=== PATIENT | male | born 1950 | race Caucasian/White ===

== ENCOUNTER → 2020-01-31 13:06 | Outpatient (BNVA) | payer MEDICARE, SELFPAY | PROVIDERS: PCP Internal Medicine; Referring Provider Internal Medicine; Visit Provider Internal Medicine | DX: I48.0 Paroxysmal atrial fibrillation (principal); I49.3 Ventricular premature depolarization; I42.9 Cardiomyopathy, unspecified; I34.0 Nonrheumatic mitral (valve) insufficiency; I63.40 Cerebral infarction due to embolism of unspecified cerebral artery | CPT/HCPCS: 99215 ==

== ENCOUNTER 2020-02-11 08:50 | Outpatient (REF) | payer MEDICARE, SELFPAY ==
[2020-02-11 11:21] LABS: Hemoglobin 15.2 g/dl (14.0-18.0); Mean Corpuscular HGB Conc 32.3 g/dl (31.0-36.0); Mean Corpuscular Hemoglobin 30.9 pg (27.0-33.0); Mean Corpuscular Volume 95.5 fL (80-98); Mean Platelet Volume 11.4 fL (9.4-12.4); Platelet Count 219 X10*3/uL (160-400); Red Blood Count 4.92 X10*6/uL (4.60-5.80); Red Cell Distribution Width 12.9 % (11.0-16.0); White Blood Count 5.8 X10*3/uL (4.8-10.8)
[2020-02-11 11:34] LABS: Alanine Aminotransferase 39 U/L (0-40); Albumin Level 4.3 g/dL (3.5-5.0); Alkaline Phosphatase 89 U/L (39-117); Anion Gap 11 (12-20); Aspartate Amino Transferase 40 U/L (5-37); Bilirubin Total 0.8 mg/dL (0.0-1.0); Blood Urea Nitrogen 38 mg/dL (9-16); Calcium 9.4 mg/dL (8.4-10.2); Carbon Dioxide 30 mmol/L (22-29); Chloride 102 mmol/L (96-108); Estimated Glomerular Filt Rate 49; Glucose Random 96 mg/dL (60-115); Potassium 4.2 mmol/l (3.3-5.1); Sodium 139 mmol/L (135-145)
== END 2020-02-11 08:51 | disposition home or self-care (01) ==
LOC: HO.HMGCLDS 08:50
PROVIDERS: PCP Internal Medicine; Visit Provider Internal Medicine
DX: E11.9 Type 2 diabetes mellitus without complications (principal)
CPT/HCPCS: 36415; 80053; 85027

== ENCOUNTER → 2020-03-13 13:00 | Outpatient (BNVA) | payer MEDICARE, SELFPAY | PROVIDERS: PCP Internal Medicine; Referring Provider Internal Medicine; Visit Provider Internal Medicine | DX: I48.0 Paroxysmal atrial fibrillation (principal); I50.9 Heart failure, unspecified; I49.3 Ventricular premature depolarization; I42.9 Cardiomyopathy, unspecified; I34.0 Nonrheumatic mitral (valve) insufficiency; Z79.01 Long term (current) use of anticoagulants; Z86.73 Personal history of transient ischemic attack (TIA), and cerebral infarction without residual deficits; Z79.899 Other long term (current) drug therapy; Z86.718 Personal history of other venous thrombosis and embolism; Z87.891 Personal history of nicotine dependence | CPT/HCPCS: Q3014 ==

== ENCOUNTER 2020-04-24 14:22 | Outpatient (REF) | payer MEDICARE, SELFPAY ==
[2020-04-24 16:23] LABS: MANUAL DIFF FLAG NO
[2020-04-24 16:28] LABS: Basophils Percent Auto 0.5 % (0-2); Eosinophils Absolute Auto 0.2 X10*3/uL (0.0-0.4); Eosinophils Percent Auto 3.8 % (0-4); Hematocrit 45.7 % (42-52); Hemoglobin 14.6 g/dl (14.0-18.0); Imm Gran Abs Auto 0.01 X10*3/uL (0.00-0.03); Imm Gran Pct Auto 0.2 % (0.0-0.4); Lymphocytes Absolute Auto 2.1 X10*3/uL (1.2-4.9); Lymphocytes Percent Auto 33.4 % (20-40); Mean Corpuscular HGB Conc 31.9 g/dl (31.0-36.0); Mean Corpuscular Hemoglobin 31.1 pg (27.0-33.0); Mean Corpuscular Volume 97.2 fL (80-98); Monocytes Absolute Auto 0.7 X10*3/uL (0.1-1.2); Monocytes Percent Auto 10.4 % (2-11); Neutrophils Absolute Auto 3.2 X10*3/uL (2.0-8.3); Neutrophils Percent Auto 51.7 % (45-73); Platelet Count 208 X10*3/uL (160-400); Red Cell Distribution Width 14.6 % (11.0-16.0); White Blood Count 6.3 X10*3/uL (4.8-10.8)
[2020-04-24 16:41] LABS: INTERNATIONAL NORM RATIO 1.2 (0.9-1.1); Prothrombin Time 14.1 SEC (10.8-13.0)
[2020-04-24 16:43] LABS: Partial Thromboplastin Time 31.5 SEC (24.1-38.0)
[2020-04-24 17:01] LABS: B Type Natriuretic Peptide 739 pg/mL (<100)
[2020-04-24 17:02] LABS: Alanine Aminotransferase 27 U/L (0-40); Albumin Level 4.2 g/dL (3.5-5.0); Alkaline Phosphatase 84 U/L (39-117); Anion Gap 10 (12-20); Aspartate Amino Transferase 25 U/L (5-37); Bilirubin Total 0.9 mg/dL (0.0-1.0); Blood Urea Nitrogen 18 mg/dL (9-16); Calcium 9.2 mg/dL (8.4-10.2); Carbon Dioxide 28 mmol/L (22-29); Chloride 106 mmol/L (96-108); Cholesterol 178 mg/dL; Estimated Glomerular Filt Rate 55; Glucose Random 93 mg/dL (60-115); HDL Cholesterol 88 mg/dL; LDL Cholesterol Calculated 83 mg/dl; Potassium 4.9 mmol/l (3.3-5.1); Sodium 139 mmol/L (135-145); Total Protein 6.8 g/dL (6.5-8.0); Triglycerides 36 mg/dL
[2020-04-24 17:03] LABS: Alanine Aminotransferase 25 U/L (0-40); Albumin Level 4.2 g/dL (3.5-5.0); Alkaline Phosphatase 82 U/L (39-117); Anion Gap 11 (12-20); Aspartate Amino Transferase 25 U/L (5-37); Bilirubin Direct 0.4 mg/dL (0.0-0.5); Bilirubin Total 0.9 mg/dL (0.0-1.0); Blood Urea Nitrogen 18 mg/dL (9-16); Calcium 9.3 mg/dL (8.4-10.2); Carbon Dioxide 26 mmol/L (22-29); Chloride 107 mmol/L (96-108); Cholesterol 179 mg/dL; Estimated Glomerular Filt Rate 55; Glucose Fasting 93 mg/dL (60-99); HDL Cholesterol 87 mg/dL; Iron 86 mcg/dL (45-160); LDL Cholesterol Calculated 85 mg/dl; Magnesium 2.1 mg/dL (1.6-2.6); Percent Iron Saturation 24 % (15-50); Potassium 4.9 mmol/l (3.3-5.1); Sodium 139 mmol/L (135-145); Total Iron Binding Capacity 356 mcg/dL (228-428); Total Protein 6.8 g/dL (6.5-8.0); Triglycerides 37 mg/dL; Unsaturated Iron Binding 270 ug/dL
[2020-04-24 17:22] LABS: Erythrocyte Sedimentation Rate 2 MM/HR (0-15)
[2020-04-24 17:25] LABS: T4 Thyroxine 5.6 ug/dL (4.5-12.0)
[2020-04-24 17:26] LABS: Ferritin 140 ng/mL (20-250); Free T4 (Free Thyroxine) 0.95 ng/dL (0.71-1.85); Thyroid Stimulating Hormone 2.19 uIU/mL (0.32-4.0)
[2020-04-24 17:32] LABS: Folate > 20.0 ng/mL (> or = 4.0); Vitamin B12 291 pg/mL (200-900)
[2020-04-25 06:18] LABS: T3 Uptake 34 % (22-35)
[2020-04-25 07:26] LABS: Triiodothyronine T3 Total 74 ng/dL (76-181)
== END 2020-04-24 14:23 | disposition home or self-care (01) ==
LOC: HO.HMGCLDS 14:22
PROVIDERS: PCP Internal Medicine; Visit Provider Internal Medicine Cardiovascular Disease
DX: Z01.818 Encounter for other preprocedural examination (principal); E78.00 Pure hypercholesterolemia, unspecified; I48.91 Unspecified atrial fibrillation; E78.5 Hyperlipidemia, unspecified; R51.9 Headache, unspecified; I49.3 Ventricular premature depolarization; I11.0 Hypertensive heart disease with heart failure; I50.9 Heart failure, unspecified
CPT/HCPCS: 36415; 80051; 80053; 80061; 80076; 82248; 82310; 82550; 82565; 82607; 82728; 82746; 82947; 83540; 83735; 83880; 84436; 84439; 84443; 84479; 84480; 84520; 85025; 85610; 85652; 85730

== ENCOUNTER → 2020-05-14 07:33 | Outpatient (REF) | payer MEDICARE, SELFPAY ==
--- NOTE | 2020-05-14 07:38 | CA_ITS ---
Transthoracic Echocardiogram Patient (Last, First, Middle): Eliazar Quispe F Gender: Male Date of : 1950 Age: 70 Procedure Date: 05/14/2020 Procedure Type: Transthoracic Echocardiogram Location: OP Height: 187.96 cm Weight: 79.38 kg BSA: 2.05 m2 Heart Rate: bpm BP: 122 / 60 mmHg Media Intern: Referring MD: derrell briggs md Symptoms: AFIB Study Quality: Good ECG Rhythm: Sinus Conclusions: - The left ventricular systolic function is moderately decreased. The visually estimated ejection fraction is between 30-35%. - The left atrium is severely dilated. - There is mild to moderate mitral valve regurgitation. - There is mild tricuspid valve regurgitation. Findings Left Ventricle Normal left ventricular cavity size. There is mildly increased left ventricular wall thickness. The left ventricular systolic function is moderately decreased. The visually estimated ejection fraction is between 30 35%. There is moderate global hypokinesis. E/E prime ratio is between 8 and 15 consistent with indeterminate filling pressures. Evidence suggests grade I (mild) diastolic dysfunction. Right Ventricle Normal right ventricular cavity size and systolic function. Atria The left atrium is severely dilated. The right atrium is mildly dilated. Aortic Valve There is a normal trileaflet aortic valve. There is no aortic valve stenosis. There is no aortic valve regurgitation. Mitral Valve The mitral valve appears normal. There is mild to moderate mitral valve regurgitation. There is no mitral valve stenosis. Pulmonic Valve The pulmonic valve was not well visualized. Tricuspid Valve Normal tricuspid valve structure. There is mild tricuspid valve regurgitation. The pulmonary artery systolic pressure is normal. Great Vessels The aortic annulus, sinuses of valsalva, and asc aorta are normal in size. Venous The inferior vena cava is normal in size and collapses greater than 50% with inspiration. Pericardium/Pleural There is no evidence of pericardial effusion. Prior Study Comparison No significant change compared to prior study dated: 01/16/2020. Measurements 2D Linear Measurements IVSd: 1.26 0.6-0.9/0.6-1.0 cm LVIDd: 5.24 3.9-5.3/4.2-5.9 cm LVIDd Index: 2.56 2.4-3.2/2.2-3.1 cm/m2 LVIDs: 4.18 2.0-3.6 cm LVPWd: 1.26 0.7-1.1 cm Ao Root: 3.80 2.1-3.5 cm LA Diam: 5.10 2.7-3.8/3.0-4.0 cm LAIDs Index: 2.49 1.5-2.3 cm/m2 LV Mass: 336.35 67-162/88-224 g LV Mass Index: 164.07 43-95/49-115 g/m2 LVOT Diam: 2.40 3.0+(-)1.3 cm 2D Systolic Function EF 4C: 35.90 >55% EF 2C: 36.70 >55% EF BiP: 34.50 >55% Mitral Valve MV Pk E: 0.59 MV PK A: 0.36 MV Decel Time: 172.00 E/A: 1.60 E'Lateral: 5.22 E'Medial: 5.42 E/E' Med: 10.90 E/E' Lat: 11.30 PHT: 50.00 MVA PHT: 4.40 Decel [place]: 3.45 MR Vol - PW Dopp: 35.65 MR VTI: 1.55 MR ERO: 23.00 MR Alias Nura: 0.38 MR RAD: 0.70 Aortic Valve AoV Pk Nura: 1.06 AoV Mn Nura: 0.71 AoV VTI: 0.20 AoV Pk Grad: 4.00 Aov Mn Grad: 2.00 DELIA Cont.VTI: 2.80 LVOT LVOT Pk Nura: 0.68 LVOT Mn Nura: 0.51 LVOT VTI: 0.12 LVOT Pk Grad: 2.00 LVOT Mn Grad: 1.00 LVOT Diam: 2.40 LVOT Area: 4.52 Diastolic Function MV Pk E: 0.59 MV Pk A: 0.36 E/A: 1.60 E'Medial: 5.42 E/E' Med: 10.90 E' Laterial: 5.22 E/E' Lat: 11.30 Tricuspid Valve TR Pk Nura: 2.40 TR Pk Grad: 23.00 RA Press: 3.00 RVSP: 26.00 Great Vessels Aorta Ao Root-2D: 3.80 2.0-3.7 cm Ao Asc: 3.60 2.1-3.4 cm Pulmonary Valve PV Pk Nura: 0.71 Peak PV Grad: 2.00 Updated in Other Vendor System with Status of Final Jaylen Amin MD electronically signed on 05/16/2020 2:40:50 PM with status of Final
== END ==
LOC: HO.CARD 07:33
PROVIDERS: Visit Provider Internal Medicine Cardiovascular Disease
DX: I48.0 Paroxysmal atrial fibrillation (principal)
CPT/HCPCS: 93306

== ENCOUNTER → 2020-06-05 10:58 | Outpatient (REF) | payer MEDICARE, SELFPAY ==
--- NOTE | 2020-06-05 11:03 | ECG_ITS ---
Hook-up date: 2020-06-05 11:10:00 Duration: 27:31:00 Test Indications: PALPITATIONS Medications: 359709 QRS complexes 3046 Ventricular ectopics which represent 2 % of total QRS comp. 6200 Supraventricular ectopics which represent 5 % of total QRS comp. * Paced QRS complexs which represent % of total QRS comp. VENTRICULAR ECTOPY 2954 Isolated 385 Bigeminal Cycles 40 Couplets 4 Runs 12 Beats in Runs 3 Beats LONGEST at 144 BPM at 16:25:50 2020-06-05 3 Beats FASTEST at 144 BPM at 16:25:50 2020-06-05 SUPRAVENTRICULAR ECTOPY 2500 Isolated 1621 Couplets 138 Runs 465 Beats in Runs 12 Beats LONGEST at 107 BPM at 03:16:55 2020-06-06 5 Beats FASTEST at 174 BPM at 22:08:07 2020-06-05 HEART RATES 61 MIN at 04:17:13 2020-06-06 85 AVG 151 MAX at 11:59:46 2020-06-05 LONGEST RR 1.2000 secs at 05:33:48 2020-06-06 S-T LEVELS Channel 1 - 128 mm at 11:10:00 2020-06-05 - 128 mm at 11:10:00 2020-06-05 Channel 2 - 128 mm at 11:10:00 2020-06-05 - 128 mm at 11:10:00 2020-06-05 Channel 3 - 128 mm at 03:02:91 -- - 128 mm at 03:02:91 Basic rhythm Normal sinus rhythm No long pause or profound bradycardia Baseline BBB Frequent Premature atrial complexes Multiple short bursts of SVEs No sustained Left anterior fascicular block Frequent Premature ventricular complexes Patient did not report any symptoms in the diary Referred By: Devorah Pan Overread By: BRIANNA SHIELDS MD
== END ==
LOC: HO.CARD 10:58
PROVIDERS: PCP Internal Medicine; Visit Provider Nurse Practitioner Adult Health
DX: I49.1 Atrial premature depolarization (principal); I49.3 Ventricular premature depolarization
CPT/HCPCS: 93225; 93226

== ENCOUNTER → 2020-06-11 14:00 | Outpatient (BNVA) | payer MEDICARE, SELFPAY | PROVIDERS: PCP Internal Medicine; Visit Provider Internal Medicine | DX: Z01.810 Encounter for preprocedural cardiovascular examination (principal); I48.0 Paroxysmal atrial fibrillation; I49.3 Ventricular premature depolarization; I42.9 Cardiomyopathy, unspecified; I34.0 Nonrheumatic mitral (valve) insufficiency; I63.40 Cerebral infarction due to embolism of unspecified cerebral artery | CPT/HCPCS: 93005; 99212 ==

== ENCOUNTER → 2020-08-26 08:28 | Outpatient (REF) | payer MEDICARE, SELFPAY ==
--- NOTE | ~2020-08-26 | NM_ITS ---
Exercise Myocardial perfusion study Indication: Shortness of breath evaluate for myocardial ischemia Technique: The patient was brought in for an exercise perfusion study on 08/26/2020. Patient performed exercise as per Ered protocol and was injected 25 mCi of sestamibi was given intravenously one target HR was achieved. Images were obtained using the SPECT gamma camera interlaced with the gating device. Images were obtained in supine position. Resting perfusion study was performed on 08/27/2020. Patient was administered 25 mCi of sestamibi intravenously at rest. Images were then obtained in supine position. Images obtained with and without CT attenuation. Total DLP 121 mGy-cm. Images were processed with the software and compared side to side in short axis, horizontal long axis and vertical long axis views. Findings: The stress perfusion study showed nondistended images show normal uptake of radiotracer in all segments of LV myocardium. Attenuation corrected images show mildly reduced uptake in the distal anterior and apex of the LV myocardium.. The gated study shows normal LV systolic function with calculated LVEF of 52%. LV cavity is normal in size. The gated study shows normal systolic wall thickening and contraction of all segments. There is no transient ischemic dilation. Resting study shows no change in perfusion pattern compared to stress perfusion study. Gating at rest reveals normal systolic wall motion with ejection fraction at 55%. The findings are consistent with no reversible defect suggestive of ischemia. NM/NM ingrid perf SPECT rest & str Impression: 1. Normal myocardial perfusion 2. Gated LVEF is 55% 3. Transient ischemic dilatation not present Stress EKG is equivocal for ischemia
--- NOTE | 2020-08-26 08:33 | CA_ITS ---
Transthoracic Echocardiogram Patient (Last, First, Middle): Eliazar Quispe F Gender: Male Date of : 1950 Age: 70 Procedure Date: 08/26/2020 Procedure Type: Transthoracic Echocardiogram Location: OP Height: 187.96 cm Weight: 81.65 kg BSA: 2.08 m2 Heart Rate: bpm BP: 118 / 60 mmHg Thrill Performer: Referring MD: Jaylen Amin MD Symptoms: I42.9 - Cardiomyopathy, unspecified Study Quality: Good ECG Rhythm: Sinus Conclusions: - The left ventricular systolic function is normal. The visually estimated ejection fraction is between 55-60%. - The left atrium is severely dilated. - There is moderate to severe mitral valve regurgitation. - There is mild to moderate tricuspid valve regurgitation. - Moderate pulmonary hypertension is present. Findings Left Ventricle Normal left ventricular cavity size. There is mildly increased left ventricular wall thickness. The left ventricular systolic function is normal. The visually estimated ejection fraction is between 55-60%. The calculated ejection fraction is 54% by biplane method. E/E prime ratio is between 8 and 15 consistent with indeterminate filling pressures. Possible grade 2 diastolic dysfunction. Right Ventricle Normal right ventricular cavity size and systolic function. Atria The left atrium is severely dilated. The right atrium is mildly dilated. Atrial septal defect noted possibly related to ablation. [id number] shunting. Aortic Valve There is a normal trileaflet aortic valve. There is no aortic valve stenosis. There is trace (trivial) aortic valve regurgitation. Mitral Valve The posterior mitral leaflet has restricted mobility. There is mild mitral annular calcification. There is moderate to severe mitral valve regurgitation. There is no mitral valve stenosis. Effective orifice area by PISA calculation 0.24sqcm. Pulmonic Valve The pulmonic valve was not well visualized. Tricuspid Valve Normal tricuspid valve structure. There is mild to moderate tricuspid valve regurgitation. The right ventricular systolic pressure is 50 mmHg. Moderate pulmonary hypertension is present. Great Vessels The aortic annulus, sinuses of valsalva, and asc aorta are normal in size. Venous The inferior vena cava is mildly dilated and collapses greater than 50% with inspiration. Pericardium/Pleural There is no evidence of pericardial effusion. Prior Study Comparison Changes noted compared to prior study dated: 05/14/2020. LVEF improved. Measurements 2D Linear Measurements IVSd: 1.22 0.6-0.9/0.6-1.0 cm LVIDd: 5.06 3.9-5.3/4.2-5.9 cm LVIDd Index: 2.43 2.4-3.2/2.2-3.1 cm/m2 LVIDs: 3.20 2.0-3.6 cm LVPWd: 1.24 0.7-1.1 cm Ao Root: 3.80 2.1-3.5 cm LA Diam: 5.30 2.7-3.8/3.0-4.0 cm LAIDs Index: 2.55 1.5-2.3 cm/m2 LV Mass: 307.53 67-162/88-224 g LV Mass Index: 147.85 43-95/49-115 g/m2 LVOT Diam: 2.30 3.0+(-)1.3 cm 2D Systolic Function EF 4C: 52.30 >55% EF 2C: 55.80 >55% EF BiP: 53.90 >55% Mitral Valve MV Pk E: 0.92 MV PK A: 0.37 MV Decel Time: 254.00 E/A: 2.50 E'Lateral: 12.00 E'Medial: 7.06 E/E' Med: 13.10 E/E' Lat: 7.70 PHT: 74.00 MVA PHT: 2.97 Decel [place]: 3.64 MR Vol - PW Dopp: 51.60 MR VTI: 2.15 MR ERO: 24.00 MR Alias Nura: 0.36 MR RAD: 0.80 Aortic Valve AoV Pk Nura: 1.26 AoV Mn Nura: 0.79 AoV VTI: 0.28 AoV Pk Grad: 6.00 Aov Mn Grad: 3.00 DELIA Cont.VTI: 2.77 LVOT LVOT Pk Nura: 0.89 LVOT Mn Nura: 0.53 LVOT VTI: 0.19 LVOT Pk Grad: 3.00 LVOT Mn Grad: 1.00 LVOT Diam: 2.30 LVOT Area: 4.15 Diastolic Function MV Pk E: 0.92 MV Pk A: 0.37 E/A: 2.50 E'Medial: 7.06 E/E' Med: 13.10 E' Laterial: 12.00 E/E' Lat: 7.70 Tricuspid Valve TR Pk Nura: 3.24 TR Pk Grad: 42.00 RA Press: 8.00 RVSP: 50.00 Great Vessels Aorta Ao Root-2D: 3.80 2.0-3.7 cm Ao Asc: 4.30 2.1-3.4 cm Pulmonary Valve PV Pk Nura: 0.68 Peak PV Grad: 2.00 Updated in Other Vendor System with Status of Final Jaylen Amin MD electronically signed on 08/27/2020 2:30:56 PM with status of Final
--- NOTE | 2020-08-26 08:33 | ECG_ITS ---
Hook-up date: 2020-08-26 10:33:00 Duration: 26:08:00 Test Indications: PAF, PVC'S Medications: 55242 QRS complexes 2415 Ventricular ectopics which represent 2 % of total QRS comp. 206 Supraventricular ectopics which represent <1 % of total QRS comp. * Paced QRS complexs which represent % of total QRS comp. VENTRICULAR ECTOPY 2303 Isolated 456 Bigeminal Cycles 51 Couplets 2 Runs 10 Beats in Runs 7 Beats LONGEST at 107 BPM at 11:27:38 2020-08-26 7 Beats FASTEST at 107 BPM at 11:27:38 2020-08-26 SUPRAVENTRICULAR ECTOPY 168 Isolated 3 Couplets 6 Runs 32 Beats in Runs 11 Beats LONGEST at 115 BPM at 10:17:14 2020-08-27 6 Beats FASTEST at 158 BPM at 21:37:53 2020-08-26 HEART RATES 51 MIN at 04:50:27 2020-08-27 67 AVG 113 MAX at 16:15:51 2020-08-26 LONGEST RR 1.7040 secs at 15:25:51 2020-08-26 S-T LEVELS Channel 1 - 128 mm at 10:33:00 2020-08-26 - 128 mm at 10:33:00 2020-08-26 Channel 2 - 128 mm at 10:33:00 2020-08-26 - 128 mm at 10:33:00 2020-08-26 Channel 3 - 128 mm at 02:95:21 -- - 128 mm at 02:95:21 Basic rhythm Normal sinus rhythm No long pause or profound bradycardia Frequent Premature ventricular complexes One 7 beat run of NSVT at 107 bpm Occasional Premature atrial complexes Patient did not report any symptoms in the diary Referred By: Jaylen Amin Overread By: BRIANNA SHIELDS MD
--- NOTE | 2020-08-26 09:30 | CA_ITS ---
Acquisition Time: 2020-08-26 09:35:14 Total Exercise Time: 00:05:50 Test Indications: afib Medications: see chart Protocol: EDINSON Max HR: 120 BPM 81% of Pred: 148 BPM Max BP: 164/072 mmHG Max Work Load: 7.0 METS Exercise stress nuclear using Edinson protocol, total of 5 min 50 sec. METS 7.00, and TAPHR up to 81 %. Pt denies any anginal sx, EKG with multiple PVC's bigeminy in peak exercise. HR attenuated by betablocker. No ischemic changes seen, Nuclear images to follow. Normotensive response to exrcise. Test reviewed with Dr. Amin. Referred By: Jaylen Amin Overread By: Steph Salinas NP
[2020-08-26 11:53] LABS: MANUAL DIFF FLAG NO
[2020-08-26 12:03] LABS: Basophils Percent Auto 0.4 % (0-2); Eosinophils Absolute Auto 0.2 X10*3/uL (0.0-0.4); Eosinophils Percent Auto 3.3 % (0-4); Hematocrit 40.4 % (42-52); Hemoglobin 13.4 g/dl (14.0-18.0); Imm Gran Abs Auto 0.01 X10*3/uL (0.00-0.03); Imm Gran Pct Auto 0.2 % (0.0-0.4); Lymphocytes Absolute Auto 1.5 X10*3/uL (1.2-4.9); Lymphocytes Percent Auto 26.6 % (20-40); Mean Corpuscular HGB Conc 33.2 g/dl (31.0-36.0); Mean Corpuscular Hemoglobin 31.7 pg (27.0-33.0); Mean Corpuscular Volume 95.5 fL (80-98); Mean Platelet Volume 9.5 fL (9.4-12.4); Monocytes Absolute Auto 0.5 X10*3/uL (0.1-1.2); Monocytes Percent Auto 9.1 % (2-11); Neutrophils Absolute Auto 3.3 X10*3/uL (2.0-8.3); Neutrophils Percent Auto 60.4 % (45-73); Platelet Count 214 X10*3/uL (160-400); Red Blood Count 4.23 X10*6/uL (4.60-5.80); Red Cell Distribution Width 12.3 % (11.0-16.0); White Blood Count 5.5 X10*3/uL (4.8-10.8)
[2020-08-26 12:21] LABS: B Type Natriuretic Peptide 195 pg/mL (<100)
[2020-08-26 12:37] LABS: Alanine Aminotransferase 25 U/L (0-40); Albumin Level 3.8 g/dL (3.5-5.0); Alkaline Phosphatase 87 U/L (39-117); Anion Gap 10 (12-20); Aspartate Amino Transferase 24 U/L (5-37); Bilirubin Total 0.9 mg/dL (0.0-1.0); Blood Urea Nitrogen 21 mg/dL (9-16); Calcium 9.2 mg/dL (8.4-10.2); Carbon Dioxide 27 mmol/L (22-29); Chloride 108 mmol/L (96-108); Estimated Glomerular Filt Rate > 60; Glucose Random 100 mg/dL (60-115); Phosphorus 3.2 mg/dL (2.7-4.5); Potassium 4.7 mmol/L (3.3-5.1); Sodium 140 mmol/L (135-145); Total Protein 6.1 g/dL (6.5-8.0)
== END ==
LOC: HO.CARD 08:28
PROVIDERS: Internal Medicine; Visit Provider Internal Medicine
DX: I50.9 Heart failure, unspecified (principal); I48.0 Paroxysmal atrial fibrillation; I49.3 Ventricular premature depolarization; I42.9 Cardiomyopathy, unspecified; R06.02 Shortness of breath
CPT/HCPCS: 36415; 78452; 80053; 83735; 83880; 84100; 85025; 93016; 93017; 93018; 93225; 93226; 93306; A9500

== ENCOUNTER 2020-09-12 09:39 | Outpatient (REF) | payer MEDICARE, SELFPAY ==
[2020-09-12 11:22] LABS: MANUAL DIFF FLAG NO
[2020-09-12 11:39] LABS: Basophils Percent Auto 0.5 % (0-2); Eosinophils Absolute Auto 0.2 X10*3/uL (0.0-0.4); Eosinophils Percent Auto 5.7 % (0-4); Hematocrit 38.1 % (42-52); Hemoglobin 12.6 g/dl (14.0-18.0); Immature Retic Fraction 5.9 % (2.3-13.4); Lymphocytes Absolute Auto 1.5 X10*3/uL (1.2-4.9); Lymphocytes Percent Auto 34.7 % (20-40); Mean Corpuscular HGB Conc 33.1 g/dl (31.0-36.0); Mean Corpuscular Hemoglobin 31.7 pg (27.0-33.0); Mean Corpuscular Volume 95.7 fL (80-98); Mean Platelet Volume 9.7 fL (9.4-12.4); Monocytes Absolute Auto 0.5 X10*3/uL (0.1-1.2); Monocytes Percent Auto 11.6 % (2-11); Neutrophils Percent Auto 47.5 % (45-73); Platelet Count 217 X10*3/uL (160-400); Red Blood Count 3.98 X10*6/uL (4.60-5.80); Red Cell Distribution Width 12.4 % (11.0-16.0); Retic HGB Equivalent 35.6 pg (30.0-35.0); Reticulocyte Percent 1.4 % (0.5-1.8); Reticulocytes Absolute 0.056 X10*6/uL (0.026-0.095); White Blood Count 4.2 X10*3/uL (4.8-10.8)
[2020-09-12 12:04] LABS: B Type Natriuretic Peptide 121 pg/mL (<100)
[2020-09-12 12:08] LABS: Alanine Aminotransferase 23 U/L (0-40); Albumin Level 3.8 g/dL (3.5-5.0); Alkaline Phosphatase 93 U/L (39-117); Anion Gap 10 (12-20); Aspartate Amino Transferase 21 U/L (5-37); Bilirubin Total 0.6 mg/dL (0.0-1.0); Blood Urea Nitrogen 26 mg/dL (9-16); Calcium 9.3 mg/dL (8.4-10.2); Carbon Dioxide 28 mmol/L (22-29); Chloride 106 mmol/L (96-108); Cholesterol 189 mg/dL; Estimated Glomerular Filt Rate > 60; Glucose Random 107 mg/dL (60-115); HDL Cholesterol 74 mg/dL; Iron 42 mcg/dL (45-160); LDL Cholesterol Calculated 104 mg/dl; Percent Iron Saturation 15 % (15-50); Potassium 4.1 mmol/L (3.3-5.1); Sodium 140 mmol/L (135-145); Total Iron Binding Capacity 289 mcg/dL (228-428); Total Protein 6.2 g/dL (6.5-8.0); Triglycerides 55 mg/dL; Unsaturated Iron Binding 247 ug/dL
[2020-09-12 12:33] LABS: Ferritin 175 ng/mL (20-250); Free T4 (Free Thyroxine) 0.85 ng/dL (0.71-1.85); Thyroid Stimulating Hormone 1.33 uIU/mL (0.32-4.0)
[2020-09-12 12:38] LABS: Folate 17.8 ng/mL (> or = 4.0); Vitamin B12 388 pg/mL (200-900)
== END 2020-09-12 09:40 | disposition home or self-care (01) ==
LOC: HO.HMGCLDS 09:39
PROVIDERS: PCP Internal Medicine; Visit Provider Internal Medicine
DX: E78.00 Pure hypercholesterolemia, unspecified (principal); D64.9 Anemia, unspecified
CPT/HCPCS: 36415; 80053; 80061; 82607; 82728; 82746; 83540; 83880; 84439; 84443; 85025; 85045

== ENCOUNTER → 2020-09-15 14:22 | Outpatient (BNVA) | payer MEDICARE, SELFPAY | PROVIDERS: PCP Internal Medicine; Referring Provider Internal Medicine; Visit Provider Internal Medicine | DX: Z01.810 Encounter for preprocedural cardiovascular examination (principal); I48.0 Paroxysmal atrial fibrillation; I49.3 Ventricular premature depolarization; I42.9 Cardiomyopathy, unspecified; I34.0 Nonrheumatic mitral (valve) insufficiency; I63.40 Cerebral infarction due to embolism of unspecified cerebral artery | CPT/HCPCS: 99212 ==

== ENCOUNTER → 2020-11-06 13:55 | Outpatient (REF) | payer MEDICARE, SELFPAY | LOC: HO.SL 13:55 | PROVIDERS: PCP Internal Medicine; Visit Provider Internal Medicine | DX: G47.33 Obstructive sleep apnea (adult) (pediatric) (principal) | CPT/HCPCS: 95806 ==

== ENCOUNTER → 2021-01-02 13:55 | Outpatient (BNVA) | payer MEDICARE, SELFPAY | PROVIDERS: PCP Internal Medicine; Referring Provider Internal Medicine; Visit Provider Internal Medicine | DX: R94.31 Abnormal electrocardiogram [ECG] [EKG] (principal) | CPT/HCPCS: 93005 ==

== ENCOUNTER → 2021-01-05 09:31 | Outpatient (REF) | payer MEDICARE, SELFPAY ==
--- NOTE | 2021-01-05 09:42 | CA_ITS ---
Transthoracic Echocardiogram Patient (Last, First, Middle): Eliazar Quispe F Gender: Male Date of : 1950 Age: 70 Procedure Date: 01/05/2021 Procedure Type: Transthoracic Echocardiogram Location: OP Height: 187.96 cm Weight: 81.65 kg BSA: 2.08 m2 Heart Rate: bpm BP: 148 / 90 mmHg Protohistorian: SPEEDY Referring MD: Jaylen Amin MD Symptoms: I34.0 - Nonrheumatic mitral (valve) insufficiency Study Quality: Good ECG Rhythm: Undetermined Conclusions: - The left ventricular systolic function is mildly decreased. The visually estimated ejection fraction is between 45-50%. - The left atrium is severely dilated. - There is moderate mitral valve regurgitation. - There is mild tricuspid valve regurgitation. - Mild pulmonary hypertension is present. Findings Left Ventricle Normal left ventricular cavity size. There is mildly increased left ventricular wall thickness. The left ventricular systolic function is mildly decreased. The visually estimated ejection fraction is between 45-50%. There is mild global hypokinesis. Diastolic function is indeterminate on the basis of available data. Right Ventricle Normal right ventricular cavity size and systolic function. Atria The left atrium is severely dilated. The right atrium is normal in size. Aortic Valve There is a normal trileaflet aortic valve. There is mild calcification of the aortic valve. There is no aortic valve stenosis. There is no aortic valve regurgitation. Mitral Valve There is mild anterior and posterior mitral leaflet thickening. There is mild mitral annular calcification. There is moderate mitral valve regurgitation. There is no mitral valve stenosis. ERO by PISA 0.19sqcm. Pulmonic Valve The pulmonic valve was not well visualized. Tricuspid Valve Normal tricuspid valve structure. There is mild tricuspid valve regurgitation. The right ventricular systolic pressure is 38 mmHg. Mild pulmonary hypertension is present. Great Vessels The aortic annulus, sinuses of valsalva, asc aorta, and aortic arch are normal in size. Venous The inferior vena cava is normal in size and collapses greater than 50% with inspiration. Pericardium/Pleural There is no evidence of pericardial effusion. Prior Study Comparison Changes noted compared to prior study dated: 08/26/2020. LVEF lower than prior study. Measurements 2D Linear Measurements IVSd: 1.29 0.6-0.9/0.6-1.0 cm LVIDd: 4.91 3.9-5.3/4.2-5.9 cm LVIDd Index: 2.36 2.4-3.2/2.2-3.1 cm/m2 LVIDs: 3.54 2.0-3.6 cm LVPWd: 1.08 0.7-1.1 cm Ao Root: 4.00 2.1-3.5 cm LA Diam: 4.60 2.7-3.8/3.0-4.0 cm LAIDs Index: 2.21 1.5-2.3 cm/m2 LV Mass: 278.16 67-162/88-224 g LV Mass Index: 133.73 43-95/49-115 g/m2 LVOT Diam: 2.30 3.0+(-)1.3 cm 2D Systolic Function EF 4C: 48.80 >55% EF 2C: 44.40 >55% EF BiP: 45.20 >55% Mitral Valve E'Lateral: 5.33 E'Medial: 7.83 MR Vol - PW Dopp: 30.78 MR VTI: 1.62 MR ERO: 19.00 MR Alias Nura: 0.36 MR RAD: 0.70 Aortic Valve AoV Pk Nura: 1.39 AoV Mn Nura: 0.93 AoV VTI: 0.22 AoV Pk Grad: 8.00 Aov Mn Grad: 4.00 DELIA Cont.VTI: 2.31 LVOT LVOT Pk Nura: 0.73 LVOT Mn Nura: 0.48 LVOT VTI: 0.12 LVOT Pk Grad: 2.00 LVOT Mn Grad: 1.00 LVOT Diam: 2.30 LVOT Area: 4.15 Diastolic Function E'Medial: 7.83 E' Laterial: 5.33 Right Ventricle TAPSE (mm): 1.98 TVS' Nura: 10.20 Tricuspid Valve TR Pk Nura: 2.95 TR Pk Grad: 35.00 RA Press: 3.00 RVSP: 38.00 Great Vessels Aorta Ao Root-2D: 4.00 2.0-3.7 cm Ao Asc: 3.30 2.1-3.4 cm Ao Arch: 3.20 Updated in Other Vendor System with Status of Final Jaylen Amin MD electronically signed on 01/06/2021 3:17:35 PM with status of Final
--- NOTE | 2021-01-05 09:42 | ECG_ITS ---
Hook-up date: 2021-01-05 10:23:00 Duration: 27:10:00 Test Indications: VENTRICULAR PREMAT. DEPOLAR. Medications: 725804 QRS complexes 557 Ventricular ectopics which represent <1 % of total QRS comp. 331 Supraventricular ectopics which represent <1 % of total QRS comp. * Paced QRS complexs which represent % of total QRS comp. VENTRICULAR ECTOPY 539 Isolated 0 Bigeminal Cycles 6 Couplets 2 Runs 6 Beats in Runs 3 Beats LONGEST at 180 BPM at 17:06:24 2021-01-05 3 Beats FASTEST at 180 BPM at 17:06:24 2021-01-05 SUPRAVENTRICULAR ECTOPY 256 Isolated 36 Couplets 1 Runs 3 Beats in Runs 3 Beats LONGEST at 187 BPM at 08:54:46 2021-01-06 3 Beats FASTEST at 187 BPM at 08:54:46 2021-01-06 HEART RATES 86 MIN at 03:47:37 2021-01-06 105 AVG 135 MAX at 06:48:42 2021-01-06 LONGEST RR 0.7680 secs at 03:48:25 2021-01-06 S-T LEVELS Channel 1 - 128 mm at 10:23:00 2021-01-05 - 128 mm at 10:23:00 2021-01-05 Channel 2 - 128 mm at 10:23:00 2021-01-05 - 128 mm at 10:23:00 2021-01-05 Channel 3 - 128 mm at 02:94:21 -- - 128 mm at 02:94:21 Underlying rhtyhm is atrial flutter vs tachycardia; Average ventricular rate 105/min; range 86-135/min; Rare PVCs (<1% burden); longest run 3 beats; Patient did not report any symptoms in the diary Referred By: Franca Vela Overread By: FRANCA VELA
== END ==
LOC: HO.CARD 09:31
PROVIDERS: PCP Internal Medicine; Visit Provider Internal Medicine
DX: I49.3 Ventricular premature depolarization (principal); I34.0 Nonrheumatic mitral (valve) insufficiency
CPT/HCPCS: 93225; 93226; 93306

== ENCOUNTER → 2021-02-10 11:45 | Outpatient (BNVA) | payer MEDICARE, SELFPAY | PROVIDERS: PCP Internal Medicine; Referring Provider Internal Medicine; Visit Provider Psychiatry & Neurology Neurology | DX: G47.33 Obstructive sleep apnea (adult) (pediatric) (principal) | CPT/HCPCS: 99202 ==

== ENCOUNTER → 2021-02-23 10:36 | Outpatient (BNVA) | payer MEDICARE, SELFPAY | PROVIDERS: PCP Internal Medicine; Referring Provider Internal Medicine; Visit Provider Internal Medicine | DX: I48.0 Paroxysmal atrial fibrillation (principal); I49.3 Ventricular premature depolarization; I42.9 Cardiomyopathy, unspecified; I34.0 Nonrheumatic mitral (valve) insufficiency; I63.40 Cerebral infarction due to embolism of unspecified cerebral artery | CPT/HCPCS: 93005; 99212 ==

== ENCOUNTER 2021-03-06 14:00 | Outpatient (REF) | payer MEDICARE, SELFPAY ==
[2021-03-06 17:08] LABS: Partial Thromboplastin Time 38.4 SEC (24.1-38.0)
[2021-03-06 17:51] LABS: Anion Gap 9 (12-20); Blood Urea Nitrogen 21 mg/dL (9-16); Calcium 9.3 mg/dL (8.4-10.2); Carbon Dioxide 30 mmol/L (22-29); Chloride 103 mmol/L (96-108); Estimated Glomerular Filt Rate 52; Glucose Random 56 mg/dL (60-115); Potassium 4.8 mmol/L (3.3-5.1); Sodium 137 mmol/L (135-145)
== END 2021-03-06 14:01 | disposition home or self-care (01) ==
LOC: HO.HMGCLDS 14:00
PROVIDERS: PCP Internal Medicine; Visit Provider Internal Medicine Clinical Cardiac Electrophysiology
DX: I48.19 Other persistent atrial fibrillation (principal); I48.4 Atypical atrial flutter
CPT/HCPCS: 36415; 80048; 85730

== ENCOUNTER 2021-03-12 11:26 | Outpatient (REF) | payer MEDICARE, SELFPAY | END 2021-03-12 11:27 | disposition home or self-care (01) | LOC: HO.HMGCLDS 11:26 | PROVIDERS: Visit Provider Internal Medicine | DX: Z20.822 Contact with and (suspected) exposure to COVID-19 (principal) | CPT/HCPCS: C9803; U0003; U0005 ==

== ENCOUNTER → 2021-03-26 12:30 | Outpatient (BNVA) | payer MEDICARE, SELFPAY | PROVIDERS: PCP Internal Medicine; Referring Provider Internal Medicine; Visit Provider Internal Medicine | DX: I48.0 Paroxysmal atrial fibrillation (principal); I49.3 Ventricular premature depolarization; I42.9 Cardiomyopathy, unspecified; I34.0 Nonrheumatic mitral (valve) insufficiency; G47.33 Obstructive sleep apnea (adult) (pediatric); Z86.73 Personal history of transient ischemic attack (TIA), and cerebral infarction without residual deficits; Z79.01 Long term (current) use of anticoagulants | CPT/HCPCS: 93005; 99212 ==

== ENCOUNTER 2021-06-12 10:24 | Outpatient (REF) | payer MEDICARE, SELFPAY ==
[2021-06-12 11:39] LABS: MANUAL DIFF FLAG NO
[2021-06-12 11:51] LABS: Basophils Percent Auto 0.3 % (0-2); Eosinophils Absolute Auto 0.3 X10*3/uL (0.0-0.4); Eosinophils Percent Auto 4.8 % (0-4); Hematocrit 40.7 % (42.0-52.0); Hemoglobin 13.2 g/dl (14.0-18.0); Imm Gran Abs Auto 0.01 X10*3/uL (0.00-0.03); Imm Gran Pct Auto 0.2 % (0.0-0.4); Immature Retic Fraction 5.2 % (2.3-13.4); Lymphocytes Absolute Auto 2.2 X10*3/uL (1.2-4.9); Lymphocytes Percent Auto 38.2 % (20-40); Mean Corpuscular HGB Conc 32.4 g/dl (31.0-36.0); Mean Corpuscular Hemoglobin 30.6 pg (27.0-33.0); Mean Corpuscular Volume 94.2 fL (80.0-98.0); Mean Platelet Volume 9.9 fL (9.4-12.4); Monocytes Absolute Auto 0.6 X10*3/uL (0.1-1.2); Monocytes Percent Auto 10.7 % (2-11); Neutrophils Absolute Auto 2.6 x10*3/uL (2.0-8.3); Neutrophils Percent Auto 45.8 % (45-73); Platelet Count 235 X10*3/uL (160-400); Red Blood Count 4.32 X10*6/uL (4.60-5.80); Red Cell Distribution Width 13.1 % (11.0-16.0); Retic HGB Equivalent 33.5 pg (30.0-35.0); Reticulocyte Percent 1.4 % (0.5-1.8); Reticulocytes Absolute 0.058 X10*6/uL (0.026-0.095); White Blood Count 5.8 X10*3/uL (4.8-10.8)
[2021-06-12 12:05] LABS: B Type Natriuretic Peptide 120 pg/mL (<100)
[2021-06-12 12:09] LABS: Alanine Aminotransferase 24 U/L (0-40); Albumin Level 3.8 g/dL (3.5-5.0); Alkaline Phosphatase 91 U/L (39-117); Anion Gap 11 (12-20); Aspartate Amino Transferase 20 U/L (5-37); Bilirubin Total 0.7 mg/dL (0.0-1.0); Blood Urea Nitrogen 29 mg/dL (9-16); Calcium 9.3 mg/dL (8.4-10.2); Carbon Dioxide 29 mmol/L (22-29); Chloride 108 mmol/L (96-108); Cholesterol 191 mg/dL; Estimated Glomerular Filt Rate 48; Glucose Random 99 mg/dL (60-115); HDL Cholesterol 78 mg/dL; Iron 59 mcg/dL (45-160); LDL Cholesterol Calculated 104 mg/dl; Magnesium 2.1 mg/dL (1.6-2.6); Percent Iron Saturation 16 % (15-50); Potassium 4.8 mmol/L (3.3-5.1); Sodium 143 mmol/L (135-145); Total Iron Binding Capacity 368 mcg/dL (228-428); Total Protein 6.4 g/dL (6.5-8.0); Triglycerides 46 mg/dL; Unsaturated Iron Binding 309 ug/dL
[2021-06-12 12:23] LABS: Estimated Average Glucose 108 mg/dL; Hemoglobin A1c % 5.4 %
[2021-06-12 12:34] LABS: Ferritin 64 ng/mL (20-250); Free T4 (Free Thyroxine) 0.85 ng/dL (0.71-1.85); Thyroid Stimulating Hormone 2.23 uIU/mL (0.32-4.0)
[2021-06-12 13:02] LABS: Folate 19.5 ng/mL (> or = 4.0); Vitamin B12 747 pg/mL (200-900)
== END 2021-06-12 10:25 | disposition home or self-care (01) ==
LOC: HO.HMGCLDS 10:24
PROVIDERS: Visit Provider Internal Medicine
DX: I50.22 Chronic systolic (congestive) heart failure (principal); D64.9 Anemia, unspecified; R73.02 Impaired glucose tolerance (oral); K21.9 Gastro-esophageal reflux disease without esophagitis; E78.00 Pure hypercholesterolemia, unspecified
CPT/HCPCS: 36415; 80053; 80061; 82607; 82728; 82746; 83036; 83540; 83735; 83880; 84439; 84443; 85025; 85045

== ENCOUNTER → 2021-06-23 10:33 | Outpatient (REF) | payer MEDICARE, SELFPAY ==
--- NOTE | 2021-06-23 10:38 | HM_ITS ---
Conclusion: 1. Patient was monitored for total period of 3 days 2. Baseline rhythm is sinus rhythm with average heart of 110 beats per minute. 3. Patient in constant sinus tachycardia 99% of the time 4. No significant pauses or bradycardia noted 5. Total of 7572 PVCs accounting for 1.57% total burden accounting for frequent PVCs 6. No patient reported events MTDD
--- NOTE | 2021-06-23 10:38 | CA_ITS ---
Transthoracic Echocardiogram Patient (Last, First, Middle): Eliazar Quispe F Gender: Male Date of : 1950 Age: 71 Procedure Date: 06/23/2021 Procedure Type: Transthoracic Echocardiogram Location: OP Height: 187.96 cm Weight: 81.65 kg BSA: 2.08 m2 Heart Rate: bpm BP: 100 / 70 mmHg Director [facility] [employer]: CP/TO Referring MD: Jaylen Amin MD Symptoms: I34.0 - Nonrheumatic mitral (valve) insufficiency Study Quality: Fair ECG Rhythm: Possible atrial tachycardia Conclusions: - The left ventricular systolic function is mildly decreased. The calculated ejection fraction is 44% by biplane method. - There is mildly decreased right ventricular systolic function. - The left atrium is severely dilated. - There is mild calcification of the aortic valve. - There is moderate mitral valve regurgitation. Findings Left Ventricle Normal left ventricular cavity size. The left ventricular systolic function is mildly decreased. The calculated ejection fraction is 44% by biplane method. There is mild global hypokinesis. Diastolic function is indeterminate on the basis of available data. There is mild septal and mild basal asymmetric hypertrophy. Right Ventricle Normal right ventricular cavity size. There is mildly decreased right ventricular systolic function. Atria The left atrium is severely dilated. The right atrium is normal in size. Aortic Valve There is a normal trileaflet aortic valve. There is mild calcification of the aortic valve. There is no aortic valve stenosis. There is trace (trivial) aortic valve regurgitation. Mitral Valve There is mild anterior mitral leaflet thickening. There is mild mitral annular calcification. There is moderate mitral valve regurgitation. There is no mitral valve stenosis. Pulmonic Valve The pulmonic valve was not well visualized. Tricuspid Valve Normal tricuspid valve structure. There is mild tricuspid valve regurgitation. The pulmonary artery systolic pressure is normal. Great Vessels The asc aorta is normal in size. Venous The inferior vena cava is mildly dilated and collapses greater than 50% with inspiration. Pericardium/Pleural There is no evidence of pericardial effusion. Prior Study Comparison No significant change compared to prior study dated: 01/05/2021. Measurements 2D Linear Measurements IVSd: 1.24 0.6-0.9/0.6-1.0 cm LVIDd: 5.28 3.9-5.3/4.2-5.9 cm LVIDd Index: 2.54 2.4-3.2/2.2-3.1 cm/m2 LVIDs: 4.52 2.0-3.6 cm LVPWd: 0.87 0.7-1.1 cm Ao Root: 3.60 2.1-3.5 cm LA Diam: 4.40 2.7-3.8/3.0-4.0 cm LAIDs Index: 2.12 1.5-2.3 cm/m2 LV Mass: 267.15 67-162/88-224 g LV Mass Index: 128.44 43-95/49-115 g/m2 LVOT Diam: 2.30 3.0+(-)1.3 cm 2D Systolic Function EF 4C: 42.50 >55% EF 2C: 44.20 >55% EF BiP: 43.70 >55% Mitral Valve MV Pk E: 0.65 MV PK A: 0.53 MV Decel Time: 190.00 E/A: 1.20 E'Lateral: 9.25 E'Medial: 6.31 E/E' Med: 10.30 E/E' Lat: 7.00 PHT: 56.00 MVA PHT: 3.93 Decel [place]: 3.42 MR Vol - PW Dopp: 53.64 MR VTI: 1.49 MR ERO: 36.00 MR Alias Nura: 0.37 MR RAD: 0.90 Aortic Valve AoV Pk Nura: 1.03 AoV Mn Nura: 0.78 AoV VTI: 0.18 AoV Pk Grad: 4.00 Aov Mn Grad: 3.00 DELIA Cont.VTI: 2.87 LVOT LVOT Pk Nura: 0.72 LVOT Mn Nura: 0.49 LVOT VTI: 0.13 LVOT Pk Grad: 2.00 LVOT Mn Grad: 1.00 LVOT Diam: 2.30 LVOT Area: 4.15 Diastolic Function MV Pk E: 0.65 MV Pk A: 0.53 E/A: 1.20 E'Medial: 6.31 E/E' Med: 10.30 E' Laterial: 9.25 E/E' Lat: 7.00 Right Ventricle TAPSE (mm): 16.60 TVS' Nura: 9.46 Tricuspid Valve TR Pk Nura: 2.42 TR Pk Grad: 23.00 RA Press: 8.00 RVSP: 31.00 Great Vessels Aorta Ao Root-2D: 3.60 2.0-3.7 cm Ao Asc: 3.80 2.1-3.4 cm Ao Arch: 3.10 Updated in Other Vendor System with Status of Final Jaylen Amin MD electronically signed on 06/24/2021 4:08:40 PM with status of Final
== END ==
LOC: HO.CARD 10:33
PROVIDERS: PCP Internal Medicine; Visit Provider Internal Medicine
DX: I34.0 Nonrheumatic mitral (valve) insufficiency (principal); Z86.79 Personal history of other diseases of the circulatory system; Z98.890 Other specified postprocedural states
CPT/HCPCS: 93242; 93306

== ENCOUNTER → 2021-07-02 15:23 | Outpatient (BNVA) | payer MEDICARE, SELFPAY | PROVIDERS: PCP Internal Medicine; Referring Provider Internal Medicine; Visit Provider Internal Medicine | DX: R94.31 Abnormal electrocardiogram [ECG] [EKG] (principal) | CPT/HCPCS: 93005 ==

== ENCOUNTER → 2021-07-28 14:23 | Outpatient (BNVA) | payer MEDICARE, SELFPAY | PROVIDERS: PCP Internal Medicine; Visit Provider Nurse Practitioner Family | DX: G47.33 Obstructive sleep apnea (adult) (pediatric) (principal) | CPT/HCPCS: 99212 ==

== ENCOUNTER → 2021-07-30 12:47 | Outpatient (BNVA) | payer MEDICARE, SELFPAY | PROVIDERS: PCP Internal Medicine; Referring Provider Internal Medicine; Visit Provider Internal Medicine | DX: I48.0 Paroxysmal atrial fibrillation (principal); I49.3 Ventricular premature depolarization; I42.9 Cardiomyopathy, unspecified; I34.0 Nonrheumatic mitral (valve) insufficiency; I63.40 Cerebral infarction due to embolism of unspecified cerebral artery; G47.33 Obstructive sleep apnea (adult) (pediatric) | CPT/HCPCS: 99212 ==

== ENCOUNTER → 2021-09-10 11:51 | Outpatient (BNVA) | payer MEDICARE, SELFPAY | PROVIDERS: PCP Internal Medicine; Referring Provider Internal Medicine; Visit Provider Physician Assistant | DX: Z12.11 Encounter for screening for malignant neoplasm of colon (principal); Z79.01 Long term (current) use of anticoagulants | CPT/HCPCS: 99202 ==

== ENCOUNTER → 2021-10-06 14:25 | Outpatient (BNVA) | payer MEDICARE, SELFPAY | PROVIDERS: PCP Internal Medicine; Referring Provider Internal Medicine; Visit Provider Internal Medicine | DX: I48.0 Paroxysmal atrial fibrillation (principal); I49.3 Ventricular premature depolarization; I42.9 Cardiomyopathy, unspecified; I48.4 Atypical atrial flutter; I34.0 Nonrheumatic mitral (valve) insufficiency; G47.33 Obstructive sleep apnea (adult) (pediatric); Z86.73 Personal history of transient ischemic attack (TIA), and cerebral infarction without residual deficits; Z79.01 Long term (current) use of anticoagulants; Z99.89 Dependence on other enabling machines and devices | CPT/HCPCS: 93005; 99212 ==

== ENCOUNTER 2021-10-19 11:18 | Outpatient (REF) | payer MEDICARE, SELFPAY ==
[2021-10-19 13:36] LABS: MANUAL DIFF FLAG NO
[2021-10-19 13:40] LABS: Basophils Percent Auto 0.4 % (0-2); Eosinophils Absolute Auto 0.2 X10*3/uL (0.0-0.4); Eosinophils Percent Auto 2.9 % (0-4); Hematocrit 39.5 % (42.0-52.0); Imm Gran Abs Auto 0.02 X10*3/uL (0.00-0.03); Imm Gran Pct Auto 0.3 % (0.0-0.4); Lymphocytes Absolute Auto 1.4 X10*3/uL (1.2-4.9); Mean Corpuscular HGB Conc 32.9 g/dl (31.0-36.0); Mean Corpuscular Hemoglobin 30.7 pg (27.0-33.0); Mean Corpuscular Volume 93.4 fL (80.0-98.0); Mean Platelet Volume 10.1 fL (9.4-12.4); Monocytes Absolute Auto 0.6 X10*3/uL (0.1-1.2); Monocytes Percent Auto 9.4 % (2-11); Neutrophils Absolute Auto 4.6 x10*3/uL (2.0-8.3); Platelet Count 250 X10*3/uL (160-400); Red Blood Count 4.23 X10*6/uL (4.60-5.80); Red Cell Distribution Width 13.7 % (11.0-16.0); White Blood Count 6.8 X10*3/uL (4.8-10.8)
[2021-10-19 14:58] LABS: Thyroid Stimulating Hormone 3.21 uIU/mL (0.32-4.0)
[2021-10-19 15:11] LABS: Folate > 20.0 ng/mL (> or = 4.0); Vitamin B12 1136 pg/mL (200-900)
[2021-10-19 15:42] LABS: Alanine Aminotransferase 23 U/L (0-40); Albumin Level 3.7 g/dL (3.5-5.0); Alkaline Phosphatase 89 U/L (39-117); Anion Gap 13 (12-20); Aspartate Amino Transferase 25 U/L (5-37); Bilirubin Total 1.2 mg/dL (0.0-1.0); Blood Urea Nitrogen 35 mg/dL (9-16); Calcium 8.9 mg/dL (8.4-10.2); Carbon Dioxide 22 mmol/L (22-29); Chloride 108 mmol/L (96-108); Cholesterol 184 mg/dL; Estimated Glomerular Filt Rate 28; Glucose Random 117 mg/dL (60-115); HDL Cholesterol 69 mg/dL; LDL Cholesterol Calculated 107 mg/dl; Potassium 5.1 mmol/L (3.3-5.1); Sodium 138 mmol/L (135-145); Total Protein 6.3 g/dL (6.5-8.0); Triglycerides 40 mg/dL
[2021-10-19 20:35] LABS: Estimated Average Glucose 105 mg/dL; Hemoglobin A1c % 5.3 %
== END 2021-10-19 11:19 | disposition home or self-care (01) ==
LOC: HO.HMGCLDS 11:18
PROVIDERS: PCP Internal Medicine; Visit Provider Internal Medicine
DX: R73.02 Impaired glucose tolerance (oral) (principal); E78.00 Pure hypercholesterolemia, unspecified
CPT/HCPCS: 36415; 80053; 80061; 82607; 82746; 83036; 84439; 84443; 85025

== ENCOUNTER → 2021-10-21 11:18 | Outpatient (BNVA) | payer MEDICARE, SELFPAY | PROVIDERS: PCP Internal Medicine; Visit Provider Internal Medicine | DX: R94.31 Abnormal electrocardiogram [ECG] [EKG] (principal) | CPT/HCPCS: 93005 ==

== ENCOUNTER 2021-10-22 10:24 | Day surgery (SDC) | payer MEDICARE, SELFPAY ==
[2021-10-16 13:30] VITALS: BMI 23.8
[2021-10-19 14:44] VITALS: BMI 25.1
--- NOTE | 2021-10-21 12:04 | P.CONAN_ITS ---
Documented by User: Ellie Aguilar NP 10/21/21 12:07 HPI - Anesthesia Eval Consult details Narrative: 71yo M for Cardioversion Eliquis for afib PMFSH Active Problems Active Problems: All Active Problems (Updated 10/19/21 @ 18:58 by Gerda Feldman MD) Acute kidney injury (Acute) Hypercholesterolemia (Acute) Paroxysmal atrial fibrillation (Acute) Congestive heart failure (Acute) Impaired glucose tolerance (Acute) Gastroesophageal reflux disease (Acute) Congestive heart failure (Acute) Insomnia (Acute) Allergic rhinitis (Acute) Anxiety (Acute) PVC (premature ventricular contraction) (Acute) Cerebral infarction due to embolism of unspecified cerebral artery (Acute) Cardiomyopathy (Acute) Nonrheumatic mitral valve regurgitation (Acute) History of DVT (deep vein thrombosis) (Acute) Insomnia (Acute) Preoperative cardiovascular examination (Acute) Anemia (Acute) Obstructive sleep apnea (adult) (pediatric) (Acute) Bilateral inguinal hernia (Acute) Peripheral vascular disease (Acute) Colon cancer screening (Acute) Plantar wart of left foot (Acute) Anticoagulant long-term use (Acute) Atypical atrial flutter (Acute) Osteoarthritis of knees, bilateral (Acute) Numbness of left hand (Acute) Generalized anxiety disorder (Acute) Past Medical History Medical History Allergic rhinitis Anxiety Asthma Cardiomyopathy Cerebral infarction due to embolism of unspecified cerebral artery Congestive heart failure Congestive heart failure DVT (deep venous thrombosis) Gastroesophageal reflux disease Generalized anxiety disorder Hypercholesterolemia Impaired glucose tolerance Insomnia Lupus anticoagulant positive Nasal polyp Nonrheumatic mitral valve regurgitation Obstructive sleep apnea (adult) (pediatric) Osteoarthritis of knees, bilateral Paroxysmal atrial fibrillation PVC (premature ventricular contraction) Family History Family History Father HTN (hypertension) CVA (cerebral vascular accident) Mother Skin cancer Maternal Uncle Colon cancer Son No problems noted. Daughter No problems noted. Family/Other Breast cancer Paternal Uncle Colon cancer Surgical History Surgical History History of arthroscopy of left knee History of cardiac radiofrequency ablation (~03/16/21) History of cardioversion (~01/17/20) History of tonsillectomy Hx of repair of right rotator cuff S/P medial meniscectomy of left knee Status post arthroscopy of left knee Social History Social History Housing: House Are you a primary after school caregiver to a significant other at home: No Do you presently have visiting nurse or other home services: No Alcohol intake: never Patient Tobacco Use Status: Former Tobacco user Quit Date: Tobacco use type: Cigarette Years Smoked: 12 +/- e-Cigarette/Vaping Use: Never Used Second Hand Smoke Exposure: No Current occupational status: retired Cognitive needs: No Hearing needs: No Vision needs: No Meds Allergies Allergy/AdvReac Type Severity Reaction Status Date / Time atorvastatin Allergy Intermediate Muscle Verified 10/22/21 10:32 cramps rosuvastatin Allergy Intermediate Muscle Verified 10/22/21 10:32 cramps Sulfa (Sulfonamide Allergy Mild RASH Verified 10/22/21 10:32 Antibiotics) [SULFA(SULFONAMIDE ANTIBIOTICS)] metoprolol AdvReac Severe Chest Verified 10/22/21 10:32 Pain, sob, dizziness Home Medications Medication Instructions Recorded Confirmed Last Taken Type ascorbic acid (vitamin C) 1,000 mg 1 g PO BID 01/25/20 10/19/21 Unknown History tablet cholecalciferol (vitamin D3) 25 25 mcg PO DAILY 01/31/20 10/19/21 Unknown History mcg (1,000 unit) capsule aspirin 81 mg chewable tablet 1 tab PO DAILY 10/22/21 10/22/21 10/22/21 08:00 History Exam Exam Date and Time: October 21, 2021 1204 Height,Weight and Vital Signs: Height 6 ft 2 in Weight 88.904 kg Pertinent Lab Results Pertinent Lab Results: Laboratory Tests 10/19/21 10/19/21 11:27 11:27 WBC 6.8 Hgb 13.0 L Hct 39.5 L Plt Count 250 Sodium 138 Potassium 5.1 Chloride 108 Carbon Dioxide 22 BUN 35 H Creatinine 2.32 H Narrative Narrative: EKG 09/2021 atypical atrial flutter at 102/Min.? Incomplete right bundle-branch block ECHO 06/2021 Conclusions: - The left ventricular systolic function is mildly decreased.? ? The calculated ejection fraction is 44% by biplane method. ? ? ? - There is mildly decreased right ventricular systolic function. - The left atrium is severely dilated. ? - There is mild calcification of the aortic valve. ? - There is moderate mitral valve regurgitation.? ? Assessment and Plan Assessment Anesthesia Assessment: Chart Reviewed Documented by User: Tae Mireles MD 10/22/21 13:17 [facility] Past Medical History Medical History Allergic rhinitis Anxiety Asthma Cardiomyopathy Cerebral infarction due to embolism of unspecified cerebral artery Congestive heart failure Congestive heart failure DVT (deep venous thrombosis) Gastroesophageal reflux disease Generalized anxiety disorder Hypercholesterolemia Impaired glucose tolerance Insomnia Lupus anticoagulant positive Nasal polyp Nonrheumatic mitral valve regurgitation Obstructive sleep apnea (adult) (pediatric) Osteoarthritis of knees, bilateral Paroxysmal atrial fibrillation PVC (premature ventricular contraction) Family History Family History Father HTN (hypertension) CVA (cerebral vascular accident) Mother Skin cancer Maternal Uncle Colon cancer Son No problems noted. Daughter No problems noted. Family/Other Breast cancer Paternal Uncle Colon cancer Family history of problems with anesthesia: No Surgical History Surgical History History of arthroscopy of left knee History of cardiac radiofrequency ablation (~03/16/21) History of cardioversion (~01/17/20) History of tonsillectomy Hx of repair of right rotator cuff S/P medial meniscectomy of left knee Status post arthroscopy of left knee History of Problems with Anesthesia: No Social History Social History Housing: House Are you a primary after school caregiver to a significant other at home: No Do you presently have visiting nurse or other home services: No Alcohol intake: never Patient Tobacco Use Status: Former Tobacco user Quit Date: Tobacco use type: Cigarette Years Smoked: 12 +/- e-Cigarette/Vaping Use: Never Used Second Hand Smoke Exposure: No Current occupational status: retired Cognitive needs: No Hearing needs: No Vision needs: No Meds Allergies Allergy/AdvReac Type Severity Reaction Status Date / Time atorvastatin Allergy Intermediate Muscle Verified 10/22/21 10:32 cramps rosuvastatin Allergy Intermediate Muscle Verified 10/22/21 10:32 cramps Sulfa (Sulfonamide Allergy Mild RASH Verified 10/22/21 10:32 Antibiotics) [SULFA(SULFONAMIDE ANTIBIOTICS)] metoprolol AdvReac Severe Chest Verified 10/22/21 10:32 Pain, sob, dizziness Home Medications Medication Instructions Recorded Confirmed Last Taken Type ascorbic acid (vitamin C) 1,000 mg 1 g PO BID 01/25/20 10/19/21 Unknown History tablet cholecalciferol (vitamin D3) 25 25 mcg PO DAILY 01/31/20 10/19/21 Unknown History mcg (1,000 unit) capsule aspirin 81 mg chewable tablet 1 tab PO DAILY 10/22/21 10/22/21 10/22/21 08:00 History Exam Airway Mallampati Class: II TM Dist: >3cm Neck ROM: Full Assessment and Plan Assessment Anesthesia Assessment: Anesthesia Plan Discussed Final Anesthetic Review Family History of Problems with Anesthesia: No History of Problems with Anesthesia: No NPO: Yes ASA Class: III Final Preanesthetic Review: No Changes in Pt Med Stat, Meds/Allgs Chart Reviewed, Consent Obtained/Reviewed and Anes Risks/Benef Reviewed Patient Risk: Intermediate Procedure Risk: Low Anesthetic Plan Anesthetic Plan: MAC: Disposition: Standard PACU
[2021-10-22] VITALS (13 sets, daily range): BP systolic 76–140; BP diastolic 48–96; PULSE 54–91; RESP 12–18; TEMP 36.6–37.2; O2SAT 95–98
--- NOTE | 2021-10-22 10:57 | MHC.SHP ---
Pre-Procedural Eval Section A Date of Service: 10/22/21 The patient is an INPATIENT: No Section B Chief Complaint: Atypical atrial flutter Allergies: Allergies Allergy/AdvReac Type Severity Reaction Status Date / Time atorvastatin Allergy Intermediate Muscle Verified 10/22/21 10:32 cramps rosuvastatin Allergy Intermediate Muscle Verified 10/22/21 10:32 cramps Sulfa (Sulfonamide Allergy Mild RASH Verified 10/22/21 10:32 Antibiotics) [SULFA(SULFONAMIDE ANTIBIOTICS)] metoprolol AdvReac Severe Chest Verified 10/22/21 10:32 Pain, sob, dizziness Plan I have reviewed the history and physical and performed a pertinent physical examination on my patient. No changes have occurred unless specified.
[2021-10-22] MEDS: Lactated Ringers 1,000 ML 50 ML IVCONT (11:00)
--- NOTE | 2021-10-22 11:07 | PC.NURSE ---
Patient arrived to [facility] and placed on monitor car operator. Monitor showed what appeared to be Sinus Rhythm. Dr. Amin at bedside. Per him, The monitor looks like SR however there is underlying atrial fibrillation . PACU nurse aware.
--- NOTE | 2021-10-22 11:15 | ECG_ITS ---
Test Reason : post cardioversion Blood Pressure : / mmHG Vent. Rate : 048 BPM Atrial Rate : 048 BPM P-R Int : 192 ms QRS Dur : 128 ms QT Int : 498 ms P-R-T Axes : 067 007 -10 degrees QTc Int : 444 ms Sinus bradycardia Right bundle branch block Abnormal ECG When compared with ECG of 17-JAN-2020 13:44, Premature ventricular complexes are no longer Present Premature supraventricular complexes are no longer Present Vent. rate has decreased BY 23 BPM Right bundle branch block is now Present Referred By: Franca Vela Electronically Signed By:FRANCA VELA
--- NOTE | 2021-10-22 12:18 | HO.CARDIVERS ---
Cardioversion Procedure Note Cardioversion Date of Procedure: 10/22/2021. Ordering Provider: Dr. Amin Performing Provider: Dr. Amin Indication for Procedure: Atypical atrial flutter. Pre-Op Diagnosis: Atypical atrial flutter Post-Op Diagnosis: Sinus rhythm CESILIA findings (if CESILIA Performed): None performed History: See full H and P. Consent: Informed consent obtained. Procedure: After informed consent was obtained, patient was taken to the PACU. The patient was then positioned appropriately. The cardioversion pads were placed in anteroposterior position. Once under anesthesia, 120 joules of synchronized shock was administered. The rhythm converted from atrial fibrillation to sinus bradycardia. Patient remained in sinus bradycardia after the end of procedure. Complications: None Impression: Successful cardioversion from atrial flutter to sinus bradycardia Recommendations: To be monitored till blood pressure stabilizes. Continue amiodarone. Regarding Coreg, to decide based on blood pressure.
--- NOTE | 2021-10-22 13:21 | CA_ITS ---
Transthoracic Echocardiogram Patient (Last, First, Middle): Eliazar Quispe F Gender: Male Date of : 1950 Age: 71 Procedure Date: 10/22/2021 Procedure Type: Transthoracic Echocardiogram Location: OP Height: 187.96 cm Weight: 88.91 kg BSA: 2.15 m2 Heart Rate: bpm BP: 98 / 72 mmHg Test Analyst: DONNIE Referring MD: Jaylen Amin MD Symptoms: I42.9 - Cardiomyopathy, unspecified Study Quality: Adequate ECG Rhythm: Sinus Conclusions: - The left ventricular systolic function is normal. The calculated ejection fraction is 58% by biplane method. - The left atrium is severely dilated. - There is severe mitral valve regurgitation. - Severe pulmonary hypertension is present. Findings Left Ventricle Normal left ventricular cavity size. There is normal left ventricular wall thickness. The left ventricular systolic function is normal. The calculated ejection fraction is 58% by biplane method. There is no evidence of regional wall motion abnormalities. Diastolic function is indeterminate on the basis of available data. There is suggestion of flow in the 9 o'clock position in short axis view of aortic valve which could be from coronary blood flow. Right Ventricle Normal right ventricular cavity size and systolic function. Atria The left atrium is severely dilated. The right atrium is normal in size. Aortic Valve There is a normal trileaflet aortic valve. There is mild calcification of the aortic valve. There is no aortic valve stenosis. There is mild aortic valve regurgitation. Mitral Valve There is severe mitral valve regurgitation. There is no mitral valve stenosis. Mitral valve leaflets do not seem to coapt. Pulmonic Valve The pulmonic valve is likely normal. Tricuspid Valve Normal tricuspid valve structure. There is mild to moderate tricuspid valve regurgitation. The right ventricular systolic pressure is 86 mmHg. Severe pulmonary hypertension is present. Great Vessels The aortic annulus, sinuses of valsalva, and asc aorta are normal in size. Venous The inferior vena cava is normal in size. Pericardium/Pleural There is no evidence of pericardial effusion. Prior Study Comparison Changes noted compared to prior study dated: 06/23/2021. Improvement in LVEF. Worsening of mitral regurgitation and pulmonary hypertension. Measurements 2D Linear Measurements IVSd: 0.97 0.6-0.9/0.6-1.0 cm LVIDd: 5.09 3.9-5.3/4.2-5.9 cm LVIDd Index: 2.37 2.4-3.2/2.2-3.1 cm/m2 LVIDs: 2.70 2.0-3.6 cm LVPWd: 1.14 0.7-1.1 cm LA Diam: 4.50 2.7-3.8/3.0-4.0 cm LAIDs Index: 2.09 1.5-2.3 cm/m2 LV Mass: 251.19 67-162/88-224 g LV Mass Index: 116.83 43-95/49-115 g/m2 LVOT Diam: 2.30 3.0+(-)1.3 cm 2D Systolic Function EF 4C: 59.80 >55% EF 2C: 55.70 >55% EF BiP: 58.10 >55% Mitral Valve MV Pk E: 1.02 MV Decel Time: 301.00 E'Lateral: 12.40 E'Medial: 4.33 E/E' Med: 23.60 E/E' Lat: 8.20 PHT: 88.00 MVA PHT: 2.50 Decel [place]: 3.39 MR Vol - PW Dopp: 128.35 MR VTI: 0.85 MR ERO: 151.00 MR Alias Nura: 0.37 MR RAD: 1.60 Aortic Valve AoV Pk Nura: 1.26 AoV Mn Nura: 0.91 AoV VTI: 0.24 AoV Pk Grad: 6.00 Aov Mn Grad: 4.00 DELIA Cont.VTI: 1.90 LVOT LVOT Pk Nura: 0.64 LVOT Mn Nura: 0.41 LVOT VTI: 0.11 LVOT Pk Grad: 2.00 LVOT Mn Grad: 1.00 LVOT Diam: 2.30 LVOT Area: 4.15 Diastolic Function MV Pk E: 1.02 E'Medial: 4.33 E/E' Med: 23.60 E' Laterial: 12.40 E/E' Lat: 8.20 Right Ventricle TAPSE (mm): 18.70 TVS' Nura: 13.60 Tricuspid Valve TR Pk Nura: 3.72 TR Pk Grad: 55.00 RVSP: 86.00 Great Vessels Aorta Sinus of Valsalva: 3.62 2.0-3.[address] [place]: 2.25 1.7-3.4 cm Ao Asc: 3.90 2.1-3.4 cm Ao Arch: 3.50 Updated in Other Vendor System with Status of Final Jaylen Amin MD electronically signed on 10/22/2021 3:15:56 PM with status of Final
== END 2021-10-22 15:34 | disposition home or self-care (01) ==
PROVIDERS: PCP Internal Medicine; Visit Provider Internal Medicine
PROC: 5A2204Z Restoration of Cardiac Rhythm, Single (ICD-10-PCS; principal; 2021-10-22 14:20)
DX: I48.0 Paroxysmal atrial fibrillation (principal); I42.9 Cardiomyopathy, unspecified; I49.3 Ventricular premature depolarization; I50.9 Heart failure, unspecified; G47.33 Obstructive sleep apnea (adult) (pediatric); R73.01 Impaired fasting glucose; Z86.73 Personal history of transient ischemic attack (TIA), and cerebral infarction without residual deficits; Z86.718 Personal history of other venous thrombosis and embolism; Z79.01 Long term (current) use of anticoagulants; Z99.89 Dependence on other enabling machines and devices; Z79.899 Other long term (current) drug therapy; Z88.8 Allergy status to other drugs, medicaments and biological substances; Z88.2 Allergy status to sulfonamides; Z87.891 Personal history of nicotine dependence
CPT/HCPCS: 92960; 93005; 93306

== ENCOUNTER 2021-10-23 19:48 | Emergency (ER) | payer MEDICARE, SELFPAY ==
--- NOTE | ~2021-10-23 | CT_ITS ---
EXAMINATION: CT HEAD WITHOUT CONTRAST CLINICAL INFORMATION: Procedure. On Eliquis and aspirin COMPARISON: MRI brain 02/27/2007 TECHNIQUE: Contiguous axial imaging was performed from the skull base to vertex without intravenous administration of contrast. Coronal and sagittal reformatted images are performed at the CT scanner. [This CT examination was performed using dose optimization techniques as appropriate, variously including the following: *Automated exposure control *Adjustment of mA and/or kV according to patient size (this includes techniques or standardized protocols for targeted exams where dose is matched to indication/reason for exam; i.e. extremities or head) *Use of iterative reconstruction technique] DLP: 623 mGy-cm. FINDINGS: There is no evidence of acute intracranial hemorrhage or territorial infarction. No abnormal mass-effect or midline shift is seen. [place] to white matter differentiation is well preserved. No extra-axial fluid collections are identified. The ventricles are normal in size. There is no abnormal attenuation within the brain parenchyma. There is no osseous abnormality. The mastoid air cells and visualized portions of the paranasal sinuses are well-aerated. CT/CT head/brain wo con IMPRESSION: No acute intracranial pathology.
[2021-10-23 19:54] VITALS: BP 143/101; PULSE 95; RESP 18; TEMP 36.7; O2SAT 98; BMI 25.0
--- NOTE | 2021-10-23 20:15 | ED.NEUROSD ---
HPI - Neuro Symptoms/Deficit General Chief Complaint: Neuro Symptoms/Deficit Stated Complaint: stroke symptoms Time Seen by Provider: 10/23/21 20:15 Source: patient Mode of arrival: ambulatory Limitations: no limitations History of Present Illness HPI Narrative: Patient's anxiety on Eliquis and aspirin for atrial flutter noticed tingling sensation in the left side of the body which is having off and on since August today everything started at 19:30 and is almost gone now feels slightly tingling/numb to the left side of the face patient had MRI MRA last month which was negative no motor weakness subjective findings with increased anxiety Related Data Home Medications Medication Instructions Recorded Confirmed ascorbic acid (vitamin C) 1,000 mg 1 g PO BID 01/25/20 10/19/21 tablet cholecalciferol (vitamin D3) 25 25 mcg PO DAILY 01/31/20 10/19/21 mcg (1,000 unit) capsule aspirin 81 mg chewable tablet 1 tab PO DAILY 10/22/21 10/22/21 Previous Rx's Medication Instructions Recorded sodium chloride 0.65 % nasal spray 2 spray intranasal QID PRN dry 01/25/20 aerosol (Saline Nasal) nasal passages #30 mL apixaban 5 mg tablet (Eliquis) 5 mg PO BID #180 tabs 12/17/20 APAP Machine/Device #1 ea 05/29/21 albuterol sulfate 90 mcg/actuation 2 puff inhalation Q4H PRN 05/29/21 aerosol inhaler (ProAir HFA) bronchospasm #8.5 grams comp.stocking,thigh,long,large #12 ea 05/29/21 carvedilol 3.125 mg tablet 3.125 mg PO BID #90 tabs 09/30/21 amiodarone 200 mg tablet 400 mg PO BID #30 tabs 10/06/21 buspirone 10 mg tablet 5 mg PO BID 30 days #30 tabs 10/16/21 Allergies Allergy/AdvReac Type Severity Reaction Status Date / Time atorvastatin Allergy Intermediate Muscle Verified 10/23/21 20:03 cramps rosuvastatin Allergy Intermediate Muscle Verified 10/23/21 20:03 cramps Sulfa (Sulfonamide Allergy Mild RASH Verified 10/23/21 20:03 Antibiotics) [SULFA(SULFONAMIDE ANTIBIOTICS)] metoprolol AdvReac Severe Chest Verified 10/23/21 20:03 Pain, sob, dizziness Review of Systems Review of Systems: Yes all other systems are reviewed and are negative [facility] Past Medical History Medical History Allergic rhinitis Anxiety Asthma Cardiomyopathy Cerebral infarction due to embolism of unspecified cerebral artery Congestive heart failure Congestive heart failure DVT (deep venous thrombosis) Gastroesophageal reflux disease Generalized anxiety disorder Hypercholesterolemia Impaired glucose tolerance Insomnia Lupus anticoagulant positive Nasal polyp Nonrheumatic mitral valve regurgitation Obstructive sleep apnea (adult) (pediatric) Osteoarthritis of knees, bilateral Paroxysmal atrial fibrillation PVC (premature ventricular contraction) Surgical History History of arthroscopy of left knee History of cardiac radiofrequency ablation (~03/16/21) History of cardioversion (~01/17/20) History of tonsillectomy Hx of repair of right rotator cuff S/P medial meniscectomy of left knee Status post arthroscopy of left knee Family History Family History Father HTN (hypertension) CVA (cerebral vascular accident) Mother Skin cancer Maternal Uncle Colon cancer Son No problems noted. Daughter No problems noted. Family/Other Breast cancer Paternal Uncle Colon cancer Social History Social History Housing: House Are you a primary spiritual care coordinator to a significant other at home: No Do you presently have visiting nurse or other home services: No Alcohol intake: never Patient Tobacco Use Status: Former Tobacco user Quit Date: Tobacco use type: Cigarette Years Smoked: 12 +/- e-Cigarette/Vaping Use: Never Used Second Hand Smoke Exposure: No Advance Directives: No Advance Directives Information Provided: Yes Current occupational status: retired Cognitive needs: No Hearing needs: No Vision needs: No Physical Exam Vital Signs: Vital Signs: Last Vital Signs Temp 98.1 F 10/23/21 19:54 Pulse 90 10/23/21 20:53 Resp 15 10/23/21 20:53 BP 123/86 10/23/21 20:53 Pulse Ox 97 10/23/21 20:53 O2 Del Method 10/23/21 20:53 BMI result Body Mass Index 25.0 Appearance: Alert. Oriented X3. No acute distress. Eyes: PERRLA, No Nystagmus ENT: Pharynx normal. Oral Mucosa moist Neck: Normal inspection. Neck supple. CVS: Normal heart rate and rhythm. Pulses normal. Respiratory: No respiratory distress. Equal air entry bilateral, no wheezing/rales/rhonchi Abdomen: Soft and nontender. Bowel sounds are present, no mass palpable, no CVA tenderness Skin: Skin warm and dry. Normal skin color. Normal skin turgor. Extremities: No lower extremity edema. No calf tenderness Neuro: Oriented X 3. No motor deficit. No sensory deficit.No cerebellar signs , cranial nerves II-XII intact no objective sensory loss no facial droop MDM - Neuro Symptoms/Deficit MDM Narrative Medical decision making narrative: Patient with subjective tingling for more than 2 months with workup negative on Eliquis and aspirin no focal deficit head CT negative discharge patient home to follow-up with his neurologist NIH Stroke Scale Internal: Initial- Upon Arrival Level of Consciousness: Alert Level of Consciousness Questions: Answers both questions correctly Level of Consciousness Commands: Performs both tasks correctly Best Gaze: Normal Visual: No visual loss Facial Palsy: Normal Motor Arm (Right): No drift Motor Arm (Left): No drift Motor Leg (Right): No drift Motor Leg (Left): No drift Limb Ataxia: Absent Sensory: Normal Best Language: No aphasia Dysarthia: Normal Extinction and Inattention: No abnormality Score: 0 Discharge Plan Discharge Clinical Impression: Paresthesia Patient Disposition: Home, Self-Care Instructions: Paresthesia (ED) Additional Instructions: Etiology of paresthesias is not clear , your CT scan is negative for stroke continue Eliquis and aspirin Follow with neurologist if any concern Prescriptions: No Action sodium chloride [Saline Nasal] 0.65 % aerosol,spray 2 spray intranasal QID PRN (Reason: dry nasal passages) Qty: 30 0RF Eliquis 5 mg tablet 5 mg PO BID Qty: 180 2RF carvedilol 3.125 mg tablet 3.125 mg PO BID Qty: 90 0RF Rx Instructions: must administer with a meal/food aspirin 81 mg tablet,chewable 1 tab PO DAILY ascorbic acid (vitamin C) 1,000 mg tablet 1 g PO BID albuterol sulfate [ProAir HFA] 90 mcg/actuation HFA aerosol inhaler 2 puff inhalation Q4H PRN (Reason: bronchospasm) Qty: 8.5 0RF (DME) comp.stocking,thigh,long,large Misc See Rx Instructions .Route Qty: 12 0RF Rx Instructions: As directed 20-30 mm HG, black (DME) APAP Machine/Device Kit See Rx Instructions .Route Qty: 1 0RF Rx Instructions: As directed buspirone 10 mg tablet 5 mg PO BID 30 Days Qty: 30 1RF cholecalciferol (vitamin D3) 25 mcg (1,000 unit) capsule 25 mcg PO DAILY amiodarone 200 mg tablet 400 mg PO BID Qty: 30 0RF Interventions: ED Discharge Assessment Last Done: 10/23/21 21:50 Discharge Date/Time: 10/23/21 21:50
[2021-10-23 20:53] VITALS: BP 123/86; PULSE 90; RESP 15; O2SAT 97
== END 2021-10-23 21:50 | disposition home or self-care (01) ==
PROVIDERS: Emergency Provider Internal Medicine; PCP Internal Medicine
DX: R20.2 Paresthesia of skin (principal); R29.700 NIHSS score 0; F41.1 Generalized anxiety disorder; F43.0 Acute stress reaction; R51.9 Headache, unspecified; Z87.891 Personal history of nicotine dependence; Z79.899 Other long term (current) drug therapy
CPT/HCPCS: 70450; 99284

== ENCOUNTER → 2021-10-27 12:58 | Outpatient (BNVA) | payer MEDICARE, SELFPAY | PROVIDERS: PCP Internal Medicine; Visit Provider Nurse Practitioner Family | DX: G47.33 Obstructive sleep apnea (adult) (pediatric) (principal); Z99.89 Dependence on other enabling machines and devices | CPT/HCPCS: 99212 ==

== ENCOUNTER → 2021-10-28 12:28 | Outpatient (BNVA) | payer MEDICARE, SELFPAY | PROVIDERS: PCP Internal Medicine; Referring Provider Internal Medicine; Visit Provider Internal Medicine | DX: I34.0 Nonrheumatic mitral (valve) insufficiency (principal); I48.0 Paroxysmal atrial fibrillation; I49.3 Ventricular premature depolarization; I42.9 Cardiomyopathy, unspecified; N17.9 Acute kidney failure, unspecified; Z79.01 Long term (current) use of anticoagulants; Z79.899 Other long term (current) drug therapy | CPT/HCPCS: 93005; 99212 ==

== ENCOUNTER 2021-12-18 10:30 | Outpatient (REF) | payer MEDICARE, SELFPAY ==
[2021-12-18 11:27] LABS: MANUAL DIFF FLAG NO
[2021-12-18 11:29] LABS: Appearance Urine Clear; Color Urine Yellow; Glucose Urine UA Negative (Negative); Leukocyte Esterase Urine Negative (Negative); Nitrite Urine Negative (Negative); PH 6.5 (5.0-8.0); Urine Blood Negative (Negative); Urine Ketones Negative (Negative); Urine Protein Trace mg/dL (Neg-Trace)
[2021-12-18 11:38] LABS: Bacteria Urine None Seen (None Seen); Hyaline Casts Urine 0-2 /LPF (0-2); RBC Urine 0-2 /HPF (0-2); Squamous Epithelial Cell Urine 0-2 /HPF (0-2); WBC Urine 0-5 /HPF (0-5)
[2021-12-18 11:42] LABS: Basophils Absolute Auto 0.1 X10*3/uL (0.0-0.2); Basophils Percent Auto 0.8 % (0-2); Eosinophils Absolute Auto 0.6 X10*3/uL (0.0-0.4); Hematocrit 30.3 % (42.0-52.0); Hemoglobin 9.7 g/dl (14.0-18.0); Imm Gran Abs Auto 0.02 X10*3/uL (0.00-0.03); Imm Gran Pct Auto 0.3 % (0.0-0.4); Lymphocytes Absolute Auto 1.1 X10*3/uL (1.2-4.9); Lymphocytes Percent Auto 18.3 % (20-40); Mean Corpuscular Hemoglobin 30.1 pg (27.0-33.0); Mean Corpuscular Volume 94.1 fL (80.0-98.0); Mean Platelet Volume 8.9 fL (9.4-12.4); Monocytes Absolute Auto 0.7 X10*3/uL (0.1-1.2); Monocytes Percent Auto 11.1 % (2-11); Neutrophils Absolute Auto 3.7 x10*3/uL (2.0-8.3); Neutrophils Percent Auto 60.5 % (45-73); Platelet Count 333 X10*3/uL (160-400); Red Blood Count 3.22 X10*6/uL (4.60-5.80); Red Cell Distribution Width 14.8 % (11.0-16.0); Retic HGB Equivalent 32.2 pg (30.0-35.0); Reticulocyte Percent 2.9 % (0.5-1.8); Reticulocytes Absolute 0.093 X10*6/uL (0.026-0.095); White Blood Count 6.2 X10*3/uL (4.8-10.8)
[2021-12-18 11:54] LABS: Estimated Average Glucose 97 mg/dL
[2021-12-18 12:14] LABS: B Type Natriuretic Peptide 171 pg/mL (<100)
[2021-12-18 12:29] LABS: Alanine Aminotransferase 26 U/L (0-40); Albumin Level 4.1 g/dL (3.5-5.0); Alkaline Phosphatase 125 U/L (39-117); Anion Gap 16 (12-20); Aspartate Amino Transferase 27 U/L (5-37); Bilirubin Total 0.6 mg/dL (0.0-1.0); Blood Urea Nitrogen 33 mg/dL (9-16); Calcium 9.4 mg/dL (8.4-10.2); Carbon Dioxide 24 mmol/L (22-29); Chloride 104 mmol/L (96-108); Cholesterol 183 mg/dL; Estimated Glomerular Filt Rate 25; Glucose Random 106 mg/dL (60-115); HDL Cholesterol 82 mg/dL; Iron 42 mcg/dL (45-160); LDL Cholesterol Calculated 91 mg/dl; Percent Iron Saturation 12 % (15-50); Potassium 4.3 mmol/L (3.3-5.1); Sodium 140 mmol/L (135-145); Total Iron Binding Capacity 355 mcg/dL (228-428); Total Protein 7.3 g/dL (6.5-8.0); Triglycerides 54 mg/dL; Unsaturated Iron Binding 313 ug/dL
[2021-12-18 12:36] LABS: Free T4 (Free Thyroxine) 1.26 ng/dL (0.71-1.85); Thyroid Stimulating Hormone 1.97 uIU/mL (0.32-4.0)
[2021-12-18 12:51] LABS: Uric Acid 6.2 mg/dL (3.4-7.0)
[2021-12-18 12:54] LABS: Folate 15.3 ng/mL (> or = 4.0); Vitamin B12 602 pg/mL (200-900)
== END 2021-12-18 10:31 | disposition home or self-care (01) ==
LOC: HO.HMGCLDS 10:30
PROVIDERS: PCP Internal Medicine; Visit Provider Internal Medicine
DX: I48.0 Paroxysmal atrial fibrillation (principal); I50.22 Chronic systolic (congestive) heart failure; E78.00 Pure hypercholesterolemia, unspecified
CPT/HCPCS: 36415; 80053; 80061; 81001; 82607; 82746; 83036; 83540; 83880; 84439; 84443; 84550; 85025; 85045

== ENCOUNTER 2021-12-31 08:00 | Outpatient (REF) | payer MEDICARE, SELFPAY ==
--- NOTE | 2021-12-31 08:03 | EMG_ITS ---
Left median and ulnar motor and sensory studies were performed. Left radial sensory study was performed, and paraspinal muscles were tested with a needle. IMPRESSION: Mild left ulnar neuropathy across cubital tunnel. MD MARY ANN Anthony/SOHAN / [id number]
== END 2021-12-31 08:01 | disposition home or self-care (01) ==
LOC: HO.NEURO 08:00
PROVIDERS: PCP Internal Medicine; Visit Provider Internal Medicine
DX: R20.0 Anesthesia of skin (principal)
CPT/HCPCS: 95886; 95909

== ENCOUNTER → 2022-01-04 12:22 | Outpatient (BNVA) | payer MEDICARE, SELFPAY | PROVIDERS: PCP Internal Medicine; Visit Provider Internal Medicine | DX: I48.0 Paroxysmal atrial fibrillation (principal); I49.3 Ventricular premature depolarization; I42.9 Cardiomyopathy, unspecified; I25.10 Atherosclerotic heart disease of native coronary artery without angina pectoris; N18.9 Chronic kidney disease, unspecified; Z45.018 Encounter for adjustment and management of other part of cardiac pacemaker; Z79.01 Long term (current) use of anticoagulants; Z79.899 Other long term (current) drug therapy; Z98.890 Other specified postprocedural states | CPT/HCPCS: 93005; 93280; 99212 ==

== ENCOUNTER → 2022-02-04 08:32 | Outpatient (REF) | payer MEDICARE, SELFPAY ==
--- NOTE | 2022-02-04 08:34 | CA_ITS ---
Transthoracic Echocardiogram Patient (Last, First, Middle): Eliazar Quispe F Gender: Male Date of : 1950 Age: 71 Procedure Date: 02/04/2022 Procedure Type: Transthoracic Echocardiogram Location: OP Height: 187.96 cm Weight: 81.65 kg BSA: 2.08 m2 Heart Rate: bpm BP: 120 / 70 mmHg [id number] Developer: TO Referring MD: Jaylen Amin MD Symptoms: Z98.890 - Other specified postprocedural states Study Quality: Adequate ECG Rhythm: Undetermined Conclusions: - The left ventricular systolic function is low normal. The calculated ejection fraction is 51% by biplane method. - Status post mitral valve repair with satisfactory function. - There is mild to moderate tricuspid valve regurgitation. - Mild to moderate pulmonary hypertension is present. Findings Left Ventricle Normal left ventricular cavity size. The left ventricular systolic function is low normal. The calculated ejection fraction is 51% by biplane method. There is no evidence of regional wall motion abnormalities. Diastolic function is indeterminate on the basis of available data. There is mild septal asymmetric hypertrophy. Right Ventricle Mildly increased right ventricular cavity size. There is low normal right ventricular systolic function. There is a pacemaker wire seen in the right ventricle. Atria The left atrium is normal in size. The right atrium is normal in size. Aortic Valve There is a normal trileaflet aortic valve. There is mild calcification of the aortic valve. There is no aortic valve stenosis. There is trace (trivial) aortic valve regurgitation. Mitral Valve There is mild mitral valve regurgitation. There is no mitral valve stenosis. Mitral annular ring noted. Mean gradient across the mitral valve 3 mm Hg at 73/Min. Overall, satisfactory function. Pulmonic Valve The pulmonic valve is likely normal. Tricuspid Valve Normal tricuspid valve structure. There is mild to moderate tricuspid valve regurgitation. The right ventricular systolic pressure is 51 mmHg. Mild to moderate pulmonary hypertension is present. Great Vessels The asc aorta is normal in size. Venous The inferior vena cava is mildly dilated and collapses greater than 50% with inspiration. Pericardium/Pleural There is no evidence of pericardial effusion. Prior Study Comparison Changes noted compared to prior study dated: 10/22/2021. Mitral regurgitation, left atrial size as well as pulmonary hypertension improved. Measurements 2D Linear Measurements IVSd: 1.35 0.6-0.9/0.6-1.0 cm LVIDd: 4.76 3.9-5.3/4.2-5.9 cm LVIDd Index: 2.29 2.4-3.2/2.2-3.1 cm/m2 LVIDs: 2.68 2.0-3.6 cm LVPWd: 1.04 0.7-1.1 cm LA Diam: 4.00 2.7-3.8/3.0-4.0 cm LAIDs Index: 1.92 1.5-2.3 cm/m2 LV Mass: 267.98 67-162/88-224 g LV Mass Index: 128.84 43-95/49-115 g/m2 LVOT Diam: 2.30 3.0+(-)1.3 cm 2D Volumes LV ESV: 65.20 19-49/22-58 ml 2D Systolic Function EF 4C: 50.50 >55% EF 2C: 53.00 >55% EF BiP: 51.20 >55% Mitral Valve MV VTI: 0.45 MV Pk Nura: 1.71 MV Mn Nura: 0.79 MV Pk Grad: 12.00 MV Mn Grad: 3.00 MV Pk E: 1.41 MV Decel Time: 295.00 E'Lateral: 9.90 E'Medial: 4.13 E/E' Med: 34.10 E/E' Lat: 14.20 PHT: 87.00 MVA PHT: 2.53 MVA Continuity: 1.59 Decel Crenshaw: 4.79 Aortic Valve AoV Pk Nura: 1.33 AoV Mn Nura: 0.95 AoV VTI: 0.32 AoV Pk Grad: 7.00 Aov Mn Grad: 4.00 DELIA Cont.VTI: 2.25 LVOT LVOT Pk Nura: 0.78 LVOT Mn Nura: 0.53 LVOT VTI: 0.17 LVOT Pk Grad: 2.00 LVOT Mn Grad: 1.00 LVOT Diam: 2.30 LVOT Area: 4.15 Diastolic Function MV Pk E: 1.41 E'Medial: 4.13 E/E' Med: 34.10 E' Laterial: 9.90 E/E' Lat: 14.20 Right Ventricle TAPSE (mm): 16.90 TVS' Nura: 9.79 Tricuspid Valve TR Pk Nura: 3.29 TR Pk Grad: 43.00 RA Press: 8.00 RVSP: 51.00 Great Vessels Aorta Sinus of Valsalva: 3.89 2.0-3.5 cm Ao Asc: 3.90 2.1-3.4 cm Updated in Other Vendor System with Status of Final Jaylen Amin MD electronically signed on 02/04/2022 3:44:59 PM with status of Final
== END ==
LOC: HO.CARD 08:32
PROVIDERS: Visit Provider Internal Medicine
DX: Z98.890 Other specified postprocedural states (principal)
CPT/HCPCS: 93306

== ENCOUNTER 2022-02-22 12:28 | Outpatient (REF) | payer MEDICARE, SELFPAY ==
[2022-02-22 13:54] LABS: MANUAL DIFF FLAG NO
[2022-02-22 14:05] LABS: Basophils Percent Auto 0.5 % (0-2); Eosinophils Absolute Auto 0.2 X10*3/uL (0.0-0.4); Eosinophils Percent Auto 3.9 % (0-4); Hematocrit 36.6 % (42.0-52.0); Hemoglobin 11.7 g/dl (14.0-18.0); Imm Gran Abs Auto 0.02 X10*3/uL (0.00-0.03); Imm Gran Pct Auto 0.3 % (0.0-0.4); Immature Retic Fraction 11.5 % (2.3-13.4); Lymphocytes Absolute Auto 1.6 X10*3/uL (1.2-4.9); Lymphocytes Percent Auto 26.5 % (20-40); Mean Corpuscular Hemoglobin 29.3 pg (27.0-33.0); Mean Corpuscular Volume 91.5 fL (80.0-98.0); Mean Platelet Volume 9.3 fL (9.4-12.4); Monocytes Absolute Auto 0.6 X10*3/uL (0.1-1.2); Monocytes Percent Auto 9.7 % (2-11); Neutrophils Absolute Auto 3.5 x10*3/uL (2.0-8.3); Neutrophils Percent Auto 59.1 % (45-73); Platelet Count 293 X10*3/uL (160-400); Red Cell Distribution Width 14.5 % (11.0-16.0); Retic HGB Equivalent 34.4 pg (30.0-35.0); Reticulocyte Percent 1.1 % (0.5-1.8); Reticulocytes Absolute 0.042 X10*6/uL (0.026-0.095)
[2022-02-22 14:40] LABS: Alanine Aminotransferase 33 U/L (0-40); Albumin Level 4.4 g/dL (3.5-5.0); Alkaline Phosphatase 113 U/L (39-117); Anion Gap 16 (12-20); Aspartate Amino Transferase 26 U/L (5-37); Bilirubin Total 0.5 mg/dL (0.0-1.0); Blood Urea Nitrogen 34 mg/dL (9-16); Calcium 9.7 mg/dL (8.4-10.2); Carbon Dioxide 22 mmol/L (22-29); Chloride 108 mmol/L (96-108); Cholesterol 215 mg/dL; Estimated Glomerular Filt Rate 26; Glucose Random 111 mg/dL (60-115); HDL Cholesterol 99 mg/dL; Iron 52 mcg/dL (45-160); LDL Cholesterol Calculated 107 mg/dl; Percent Iron Saturation 13 % (15-50); Potassium 4.6 mmol/L (3.3-5.1); Sodium 141 mmol/L (135-145); Total Iron Binding Capacity 416 mcg/dL (228-428); Total Protein 7.4 g/dL (6.5-8.0); Triglycerides 46 mg/dL; Unsaturated Iron Binding 364 ug/dL
[2022-02-22 14:47] LABS: Ferritin 129 ng/mL (20-250); Free T4 (Free Thyroxine) 1.12 ng/dL (0.71-1.85); Thyroid Stimulating Hormone 1.68 uIU/mL (0.32-4.0)
[2022-02-22 14:53] LABS: Folate 17.6 ng/mL (> or = 4.0); Vitamin B12 309 pg/mL (200-900)
[2022-02-22 14:59] LABS: B Type Natriuretic Peptide 137 pg/mL (<100)
== END 2022-02-22 12:29 | disposition home or self-care (01) ==
LOC: HO.HMGCLDS 12:28
PROVIDERS: PCP Internal Medicine; Visit Provider Internal Medicine
DX: I25.10 Atherosclerotic heart disease of native coronary artery without angina pectoris (principal); N18.9 Chronic kidney disease, unspecified; I50.22 Chronic systolic (congestive) heart failure; E78.00 Pure hypercholesterolemia, unspecified; E55.9 Vitamin D deficiency, unspecified
CPT/HCPCS: 36415; 80053; 80061; 82306; 82607; 82728; 82746; 83540; 83880; 84439; 84443; 85025; 85045

== ENCOUNTER → 2022-02-23 13:38 | Outpatient (BNVA) | payer MEDICARE, SELFPAY | PROVIDERS: PCP Internal Medicine; Referring Provider Internal Medicine; Visit Provider Internal Medicine | DX: I48.0 Paroxysmal atrial fibrillation (principal); I49.3 Ventricular premature depolarization; I42.9 Cardiomyopathy, unspecified; I25.10 Atherosclerotic heart disease of native coronary artery without angina pectoris; N18.9 Chronic kidney disease, unspecified; Z95.0 Presence of cardiac pacemaker; Z98.890 Other specified postprocedural states | CPT/HCPCS: 99212 ==

== ENCOUNTER 2022-03-24 14:10 | Outpatient (REF) | payer MEDICARE, SELFPAY ==
[2022-03-24 16:45] LABS: Anion Gap 12 (12-20); Blood Urea Nitrogen 33 mg/dL (9-16); Carbon Dioxide 28 mmol/L (22-29); Chloride 102 mmol/L (96-108); Estimated Glomerular Filt Rate 27; Glucose Random 73 mg/dL (60-115); Potassium 4.8 mmol/L (3.3-5.1); Sodium 137 mmol/L (135-145)
[2022-03-24 19:27] LABS: Creatinine Urine 102.48 mg/dL; Protein/Creatinine Ratio, Ur 0.12 (<0.2); Total Protein Urine Random 12 mg/dL (<12)
== END 2022-03-24 14:11 | disposition home or self-care (01) ==
LOC: HO.HMGCLDS 14:10
PROVIDERS: PCP Internal Medicine; Visit Provider Internal Medicine Hypertension Specialist
DX: N18.4 Chronic kidney disease, stage 4 (severe) (principal)
CPT/HCPCS: 36415; 80048; 84156

== ENCOUNTER → 2022-03-29 11:07 | Outpatient (REF) | payer MEDICARE, SELFPAY ==
--- NOTE | 2022-03-29 11:14 | HM_ITS ---
Conclusion: 1. Patient was monitored for total period of 7 days and 1 hour 2. Baseline rhythm is sinus rhythm with intermittent atrial pacing 3. No significant pauses or bradycardia 4. Total of 4170 PVCs accounting for 0.65% of total beats account for occasional PVCs 5. Rare PACs noted 6. No patient reported events MTDD
== END ==
LOC: HO.CARD 11:07
PROVIDERS: Visit Provider Nurse Practitioner Adult Health
DX: I49.3 Ventricular premature depolarization (principal)
CPT/HCPCS: 93242

== ENCOUNTER → 2022-04-27 13:54 | Outpatient (BNVA) | payer MEDICARE, SELFPAY | PROVIDERS: PCP Internal Medicine; Visit Provider Nurse Practitioner Family | DX: G47.33 Obstructive sleep apnea (adult) (pediatric) (principal); Z99.89 Dependence on other enabling machines and devices | CPT/HCPCS: 99212 ==

== ENCOUNTER → 2022-06-03 13:42 | Outpatient (BNVA) | payer MEDICARE, SELFPAY | PROVIDERS: PCP Internal Medicine; Referring Provider Internal Medicine; Visit Provider Internal Medicine | DX: I48.0 Paroxysmal atrial fibrillation (principal); I49.3 Ventricular premature depolarization; I42.9 Cardiomyopathy, unspecified; I25.10 Atherosclerotic heart disease of native coronary artery without angina pectoris; N18.9 Chronic kidney disease, unspecified; Z95.0 Presence of cardiac pacemaker; Z98.890 Other specified postprocedural states | CPT/HCPCS: 93005; 99212 ==

== ENCOUNTER 2022-08-06 09:47 | Outpatient (REF) | payer MEDICARE, SELFPAY ==
[2022-08-06 11:17] LABS: MANUAL DIFF FLAG NO
[2022-08-06 11:56] LABS: Basophils Percent Auto 0.5 % (0-2); Eosinophils Absolute Auto 0.7 X10*3/uL (0.0-0.4); Eosinophils Percent Auto 9.5 % (0-4); Hematocrit 37.3 % (42.0-52.0); Hemoglobin 11.7 g/dl (14.0-18.0); Imm Gran Abs Auto 0.04 X10*3/uL (0.00-0.03); Imm Gran Pct Auto 0.5 % (0.0-0.4); Lymphocytes Absolute Auto 1.9 X10*3/uL (1.2-4.9); Lymphocytes Percent Auto 24.9 % (20-40); Mean Corpuscular HGB Conc 31.4 g/dl (31.0-36.0); Mean Corpuscular Hemoglobin 27.3 pg (27.0-33.0); Mean Corpuscular Volume 87.1 fL (80.0-98.0); Monocytes Absolute Auto 0.8 X10*3/uL (0.1-1.2); Neutrophils Absolute Auto 4.2 x10*3/uL (2.0-8.3); Neutrophils Percent Auto 54.6 % (45-73); Platelet Count 290 X10*3/uL (160-400); Red Blood Count 4.28 X10*6/uL (4.60-5.80); Red Cell Distribution Width 14.6 % (11.0-16.0); Retic HGB Equivalent 32.1 pg (30.0-35.0); Reticulocytes Absolute 0.042 X10*6/uL (0.026-0.095); White Blood Count 7.7 X10*3/uL (4.8-10.8)
[2022-08-06 12:24] LABS: B Type Natriuretic Peptide 171 pg/mL (<100)
[2022-08-06 12:36] LABS: Alanine Aminotransferase 23 U/L (0-40); Alkaline Phosphatase 105 U/L (39-117); Anion Gap 12 (12-20); Aspartate Amino Transferase 29 U/L (5-37); Bilirubin Total 0.5 mg/dL (0.0-1.0); Blood Urea Nitrogen 47 mg/dL (9-16); Calcium 9.5 mg/dL (8.4-10.2); Carbon Dioxide 23 mmol/L (22-29); Chloride 110 mmol/L (96-108); Cholesterol 195 mg/dL; Estimated Glomerular Filt Rate 26; Glucose Random 101 mg/dL (60-115); HDL Cholesterol 84 mg/dL; Iron 42 mcg/dL (45-160); LDL Cholesterol Calculated 103 mg/dl; Magnesium 2.1 mg/dL (1.6-2.6); Percent Iron Saturation 13 % (15-50); Potassium 4.8 mmol/L (3.3-5.1); Sodium 140 mmol/L (135-145); Total Iron Binding Capacity 336 mcg/dL (228-428); Total Protein 6.9 g/dL (6.5-8.0); Triglycerides 40 mg/dL; Unsaturated Iron Binding 294 ug/dL
[2022-08-06 12:44] LABS: Ferritin 89 ng/mL (20-250); Free T4 (Free Thyroxine) 0.98 ng/dL (0.71-1.85); Thyroid Stimulating Hormone 2.21 uIU/mL (0.32-4.0)
== END 2022-08-06 09:48 | disposition home or self-care (01) ==
LOC: HO.HMGCLDS 09:47
PROVIDERS: PCP Internal Medicine; Visit Provider Internal Medicine
DX: I48.0 Paroxysmal atrial fibrillation (principal); I50.22 Chronic systolic (congestive) heart failure; E78.00 Pure hypercholesterolemia, unspecified
CPT/HCPCS: 36415; 80053; 80061; 82728; 83540; 83735; 83880; 84439; 84443; 85025; 85045

== ENCOUNTER 2022-08-10 14:15 | Outpatient (REF) | payer MEDICARE, SELFPAY ==
--- NOTE | ~2022-08-10 | CT_ITS ---
EXAMINATION: CT MAXILLOFACIAL WITHOUT CONTRAST CLINICAL INFORMATION: Sinonasal polyps. Deviated septum. COMPARISON: None. TECHNIQUE: Multidetector helical imaging was performed in the axial plane with generation of coronal and sagittal reformatted images. This CT examination was performed using dose optimization techniques as appropriate, variously including the following: *Automated exposure control *Adjustment of mA and/or kV according to patient size (this includes techniques or standardized protocols for targeted exams where dose is matched to indication/reason for exam; i.e. extremities or head) *Use of iterative reconstruction technique DLP: 103 mGy-cm. FINDINGS: The frontal sinuses are clear. There is mild bilateral ethmoid mucosal thickening. Mild aerated secretions are seen within the left and right posterior ethmoid. The sphenoid sinuses are clear. The right sphenoethmoidal recess is opacified with mild mucosal thickening while the left-sided sphenoethmoidal recess is clear. Mild lobular mucosal thickening is seen along the bilateral maxillary sinus floors. The nasal septum demonstrates significant leftward deviation. The ethmoid roofs are symmetric. The lamina papyracea are intact. The carotid impressions are covered with bone. No maxillary periapical disease is seen. The mastoid air cells and visualized middle ear cavities are well aerated. The orbits are normal. The TMJs are unremarkable. The imaged portions of the brain demonstrate no acute abnormality. Both globes appear elongated in AP dimension typical of axial myopia. CT/CT sinus wo IV con IMPRESSION: Mild bilateral ethmoid mucosal thickening. Mild aerated secretions in the posterior ethmoid. Mild lobular mucosal thickening along the bilateral maxillary sinus floors. Significant leftward deviation of the nasal septum.
== END 2022-08-10 14:16 | disposition home or self-care (01) ==
LOC: HO.CT 14:15
PROVIDERS: PCP Internal Medicine; Visit Provider Otolaryngology
DX: J33.0 Polyp of nasal cavity (principal); J34.2 Deviated nasal septum
CPT/HCPCS: 70486

== ENCOUNTER 2022-11-03 10:57 | Outpatient (REF) | payer MEDICARE, SELFPAY ==
[2022-11-03 13:33] LABS: MANUAL DIFF FLAG NO
[2022-11-03 13:53] LABS: Basophils Percent Auto 0.6 % (0-2); Eosinophils Absolute Auto 0.4 X10*3/uL (0.0-0.4); Eosinophils Percent Auto 7.7 % (0-4); Hemoglobin 13.2 g/dl (14.0-18.0); Imm Gran Abs Auto 0.01 X10*3/uL (0.00-0.03); Imm Gran Pct Auto 0.2 % (0.0-0.4); Immature Retic Fraction 7.8 % (2.3-13.4); Lymphocytes Absolute Auto 1.9 X10*3/uL (1.2-4.9); Lymphocytes Percent Auto 35.3 % (20-40); Mean Corpuscular HGB Conc 32.2 g/dl (31.0-36.0); Mean Corpuscular Hemoglobin 28.9 pg (27.0-33.0); Mean Corpuscular Volume 89.7 fL (80.0-98.0); Mean Platelet Volume 9.7 fL (9.4-12.4); Monocytes Absolute Auto 0.5 X10*3/uL (0.1-1.2); Neutrophils Absolute Auto 2.5 x10*3/uL (2.0-8.3); Neutrophils Percent Auto 46.2 % (45-73); Platelet Count 259 X10*3/uL (160-400); Red Blood Count 4.57 X10*6/uL (4.60-5.80); Red Cell Distribution Width 15.4 % (11.0-16.0); Retic HGB Equivalent 34.7 pg (30.0-35.0); Reticulocyte Percent 1.1 % (0.5-1.8); White Blood Count 5.3 X10*3/uL (4.8-10.8)
[2022-11-03 14:26] LABS: Alanine Aminotransferase 24 U/L (0-40); Albumin Level 4.1 g/dL (3.5-5.0); Alkaline Phosphatase 108 U/L (39-117); Anion Gap 14 (12-20); Aspartate Amino Transferase 23 U/L (5-37); Bilirubin Total 0.6 mg/dL (0.0-1.0); Blood Urea Nitrogen 48 mg/dL (9-16); Calcium 10.3 mg/dL (8.4-10.2); Carbon Dioxide 24 mmol/L (22-29); Chloride 107 mmol/L (96-108); Cholesterol 183 mg/dL; Estimated Glomerular Filt Rate 24; Glucose Random 97 mg/dL (60-115); HDL Cholesterol 82 mg/dL; Iron 40 mcg/dL (45-160); LDL Cholesterol Calculated 91 mg/dl; Percent Iron Saturation 12 % (15-50); Potassium 4.5 mmol/L (3.3-5.1); Sodium 140 mmol/L (135-145); Total Iron Binding Capacity 334 mcg/dL (228-428); Total Protein 7.1 g/dL (6.5-8.0); Triglycerides 50 mg/dL; Unsaturated Iron Binding 294 ug/dL
[2022-11-03 14:51] LABS: Ferritin 68 ng/mL (20-250); Free T4 (Free Thyroxine) 0.93 ng/dL (0.71-1.85); Thyroid Stimulating Hormone 1.26 uIU/mL (0.32-4.0)
[2022-11-03 15:04] LABS: Folate 14.5 ng/mL (> or = 4.0); Vitamin B12 611 pg/mL (200-900)
== END 2022-11-03 10:58 | disposition home or self-care (01) ==
LOC: HO.HMGCLDS 10:57
PROVIDERS: PCP Internal Medicine; Visit Provider Internal Medicine
DX: E78.00 Pure hypercholesterolemia, unspecified (principal); I25.10 Atherosclerotic heart disease of native coronary artery without angina pectoris; N18.9 Chronic kidney disease, unspecified
CPT/HCPCS: 36415; 80053; 80061; 82607; 82728; 82746; 83540; 84439; 84443; 85025; 85045

== ENCOUNTER 2022-11-09 14:12 | Outpatient (AMB) | payer MEDICARE, SELFPAY ==
--- NOTE | 2022-11-09 14:15 | MHC.OFFVIS ---
Intake Vital Signs 11/09/22 14:16 Height 6 ft 2 in Weight 182 lb 4 oz BMI 23.4 BP 110/70 Blood Pressure Location Rt brachial Position Sitting Pulse 62 Pulse Source Pulse Oximeter Pulse Oximetry (%) 99 Intake Visit Reasons: 6 mnts f/u appt Intake Note: Patient presents for 6 month follow up Allergies gabapentin Allergy (Severe, Verified 11/09/22 15:50) Dizziness atorvastatin Allergy (Intermediate, Verified 11/09/22 15:50) Muscle cramps rosuvastatin Allergy (Intermediate, Verified 11/09/22 15:50) Muscle cramps Sulfa (Sulfonamide Antibiotics) [SULFA(SULFONAMIDE ANTIBIOTICS)] Allergy (Mild, Verified 11/09/22 15:50) RASH metoprolol Adverse Reaction (Severe, Verified 11/09/22 15:50) Chest Pain, sob, dizziness amoxicillin Adverse Reaction (Mild, Verified 11/09/22 15:50) Rash HPI HPI Comments History of Present Illness Details 72 y/o male patient presents for follow up of KAREN on CPAP. Pt reports he sleeps well with CPAP, feels good, walking every day. The CPAP compliance and therapy response (08/12/22-11/09/22) reviewed with the patient. He is on APAP at 5-18myT6G. The usage days 79% and the average usage hours 5 hours 40 min. The median pressure is 11.5 and the AHI was 3/hr. Pt reports that he was evaluated by ENT for dizziness and vertigo. However, he was told that everything is normal. And his BP medication discontinued and monitoring his BP. 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 Acute kidney injury Allergic rhinitis Anxiety Asthma Atherosclerotic cardiovascular disease Cardiomyopathy Cerebral infarction due to embolism of unspecified cerebral artery Congestive heart failure Congestive heart failure DVT (deep venous thrombosis) Gastroesophageal reflux disease Generalized anxiety disorder Hypercholesterolemia Impaired glucose tolerance Insomnia Lupus anticoagulant positive Nasal polyp Nonrheumatic mitral valve regurgitation Normally functioning cardiac pacemaker present Obstructive sleep apnea (adult) (pediatric) Osteoarthritis of knees, bilateral Paroxysmal atrial fibrillation Preoperative cardiovascular examination PVC (premature ventricular contraction) Rash Vertigo Surgical History (Updated 11/09/22 @ 15:56 by Gerda Feldman MD) H/O hernia repair History of arthroscopy of left knee History of cardiac radiofrequency ablation (~03/16/21) History of cardioversion (~01/17/20) History of tonsillectomy Hx of repair of right rotator cuff S/P medial meniscectomy of left knee Status post arthroscopy of left knee Status post mitral valve repair Ventral hernia Family History Father HTN (hypertension) CVA (cerebral vascular accident) Mother Skin cancer Maternal Uncle Colon cancer Son No problems noted. Daughter No problems noted. Family/Other Breast cancer Paternal Uncle Colon cancer Social History Housing: House Are you a primary manager progressive care to a significant other at home: No Do you presently have visiting nurse or other home services: No Alcohol intake: never Patient Tobacco Use Status: Former Tobacco user Quit Date: Tobacco use type: Cigarette Years Smoked: 12 +/- e-Cigarette/Vaping Use: Never Used Second Hand Smoke Exposure: No Current occupational status: retired Cognitive needs: No Hearing needs: No Vision needs: No Review of Systems Const All systems reviewed & are unremarkable except as noted in HPI and below ENT Reports Normal hearing present Neuro Reports Normal hearing present Physical Exam Vital Signs: Last Vital Signs Pulse 62 11/09/22 14:16 BP 110/70 11/09/22 14:16 Pulse Ox 99 11/09/22 14:16 BMI result Body Mass Index 23.4 Const General: comfortable and no acute distress Orientation/consciousness: patient oriented x3 HEENT Other: Unremarkable Head: Yes normal to inspection Neck Neck: Yes normal visual inspection Chest Chest palpation & inspection: normal inspection of the chest Resp Effort & Inspection: normal respiratory effort and able to speak in complete sentences Auscultation: clear to auscultation bilaterally Cardio Palpation: normal PMI Heart sounds: S1 normal heart sound present, S2 normal heart sound present, no gallops, no murmurs and no rubs GI Palpation (GI): Soft to palpation Back/Spine/Pelvis Other: unremarkable Skin Other: Rash+ Neuro General: patient oriented x3 Cranial nerves: Yes Bilaterally intact EOM present, Yes Normal facial strength present, Yes Midline tongue present, Yes Symmetric palate elevation present, Yes Normal hearing present, Yes Ability to bilaterally rotate head present and Yes Ability to bilaterally elevate shoulders present Cognition (Neuro): normal cognition Gait exam (Neuro): Antalgic gait present Extrem General: Yes normal to inspection Psych Appearance: grossly normal Mental Status: mental status grossly normal Affect: normal affect Assessment & Plan Assessment & Plan (1) KAREN on CPAP: Code(s): G47.33 - Obstructive sleep apnea (adult) (pediatric); Z99.89 - Dependence on other enabling machines and devices Plan Advised patient to continue to use APAP [id number] nightly as pt has experienced good clinical effect from use. Advised patient to clean mask and tubing regularly. Encouraged patient to do daily gentle exercise. Pt may call for any new concerns or worsening symptoms. Coding Level of Care Code Est Pt Level 3 (17062) Diagnoses KAREN on CPAP G47.33; Z99.89
[2022-11-09 14:16] VITALS: BP 110/70; PULSE 62; O2SAT 99; BMI 23.4
== END 2022-11-09 14:35 | disposition home or self-care (01) ==
LOC: HO.HSM 14:12
PROVIDERS: PCP Internal Medicine; Visit Provider Nurse Practitioner Family
DX: G47.33 Obstructive sleep apnea (adult) (pediatric) (principal); Z99.89 Dependence on other enabling machines and devices
CPT/HCPCS: 99213

== ENCOUNTER → 2022-11-09 14:12 | Outpatient (BNVA) | payer MEDICARE, SELFPAY | PROVIDERS: PCP Internal Medicine; Visit Provider Nurse Practitioner Family | DX: G47.33 Obstructive sleep apnea (adult) (pediatric) (principal); Z99.89 Dependence on other enabling machines and devices | CPT/HCPCS: 99212 ==

== ENCOUNTER 2022-11-09 15:33 | Outpatient (AMB) | payer MEDICARE, SELFPAY ==
[2022-11-09 15:38] VITALS: BP 138/80; PULSE 75; O2SAT 98; BMI 23.2
--- NOTE | 2022-11-09 15:38 | A.OFFPC_ITS ---
Vital Signs 11/09/22 15:38 Height 6 ft 2 in Weight 181 lb BMI 23.2 BP 138/80 Blood Pressure Location Lt brachial Position Sitting Pulse 75 Pulse Source Pulse Oximeter Pulse Oximetry (%) 98 Oxygen Delivery Method Room Air Intake Visit Reasons: 3 month f/u Allergies gabapentin Allergy (Severe, Verified 11/09/22 15:50) Dizziness atorvastatin Allergy (Intermediate, Verified 11/09/22 15:50) Muscle cramps rosuvastatin Allergy (Intermediate, Verified 11/09/22 15:50) Muscle cramps Sulfa (Sulfonamide Antibiotics) [SULFA(SULFONAMIDE ANTIBIOTICS)] Allergy (Mild, Verified 11/09/22 15:50) RASH metoprolol Adverse Reaction (Severe, Verified 11/09/22 15:50) Chest Pain, sob, dizziness amoxicillin Adverse Reaction (Mild, Verified 11/09/22 15:50) Rash Tobacco use date assessed: 06/04/22 Fall risk assessment: No Falls in past year Last assessed Fall Risk: 11/09/22 Dental Screening Dental Screen Date: 11/09/22 Did you have a dental visit in the last 12 months?: Yes Did you have a dental problem in the last 6 months where you did not have access to dental care?: No Was dental information given to patient?: Patient has dentist HPI 3 month f/u HPI Details 72-year-old male with multiple medical problems congestive heart failure atrial fibrillation obstructive sleep apnea coronary artery disease chronic kidney disease hypercholesterolemia ventral hernia last seen in July 2022 patient has history of mitral valve repair October 2019 to with biatrial Maze procedure patient has a small incisional hernia from the chest tube advised to see the general surgeon. Patient is here for follow-up. Cologuard up-to-date patient follows up with neurology for the sleep apnea. Reviewed notes received surgery recommendation of her to repair an incisional hernia umbilical area 09/24/2022. Meanwhile had CT scan of the sinuses showing mild bilateral ethmoid mucosal thickening bilateral maxillary sinus and left for deviation of the nasal septum.. Patient has been feeling dizzy still and stopped BP med , advisd ot check the BP - renal schedule for September change to december. [facility] Medical History (Updated 08/05/22 @ 15:41 by Gerda Feldman MD) 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 Acute kidney injury Allergic rhinitis Anxiety Asthma Atherosclerotic cardiovascular disease Cardiomyopathy Cerebral infarction due to embolism of unspecified cerebral artery Congestive heart failure Congestive heart failure DVT (deep venous thrombosis) Gastroesophageal reflux disease Generalized anxiety disorder Hypercholesterolemia Impaired glucose tolerance Insomnia Lupus anticoagulant positive Nasal polyp Nonrheumatic mitral valve regurgitation Normally functioning cardiac pacemaker present Obstructive sleep apnea (adult) (pediatric) Osteoarthritis of knees, bilateral Paroxysmal atrial fibrillation Preoperative cardiovascular examination PVC (premature ventricular contraction) Rash Vertigo Surgical History (Updated 11/09/22 @ 15:56 by Gerda Feldman MD) H/O hernia repair History of arthroscopy of left knee History of cardiac radiofrequency ablation (~03/16/21) History of cardioversion (~01/17/20) History of tonsillectomy Hx of repair of right rotator cuff S/P medial meniscectomy of left knee Status post arthroscopy of left knee Status post mitral valve repair Ventral hernia Family History Father HTN (hypertension) CVA (cerebral vascular accident) Mother Skin cancer Maternal Uncle Colon cancer Son No problems noted. Daughter No problems noted. Family/Other Breast cancer Paternal Uncle Colon cancer Social History Housing: House Are you a primary veterinarian laboratory animal care to a significant other at home: No Do you presently have visiting nurse or other home services: No Alcohol intake: never Patient Tobacco Use Status: Former Tobacco user Quit Date: Tobacco use type: Cigarette Years Smoked: 12 +/- e-Cigarette/Vaping Use: Never Used Second Hand Smoke Exposure: No Current occupational status: retired Cognitive needs: No Hearing needs: No Vision needs: No Questionnaire PHQ-9 Over the last 2 weeks, how often have you been bothered by any of the following problems? 1. Little interest or pleasure in doing things: not at all 2. Feeling down, depressed, or hopeless: not at all 3. Trouble falling or staying asleep, or sleeping too much: not at all 4. Feeling tired or having little energy: not at all 5. Poor appetite or overeating: not at all 6. Feeling bad about yourself - or that you are a failure or have let yourself or your family down: not at all 7. Trouble concentrating on things, such as reading the newspaper or watching television: not at all 8. Moving or speaking so slowly that other people could have noticed. Or the opposite - being so fidgety or restless that you have been moving around a lot more than usual: not at all 9. Thoughts that you would be better off or of hurting yourself in some way: not at all Total score: 0 Depression Screening Interpretation: Negative Source: Developed by Drs. Branden Michael, Sherry Solorio, Frederic Brown and colleagues, with an educational mary from [employer]. Thrive Questionnaire Date Thrive assessed: 05/06/22 AUDIT C Alcohol Use Questionnaire (AUDIT-C) 1. How often do you have a drink containing alcohol?: Monthly or less 2. How many drinks containing alcohol do you have on a typical day when you are drinking?: 1 or 2 3. How often do you have six or more drinks on one occasion?: Never Total Score: 1 VAUGHN-7 AMB Questionnaire VAUGHN-7 Date VAUGHN - 7 assessed: 05/06/22 Source: Developed by Drs. Branden Michael, Sherry Solorio, Frederic Brown and colleagues, with an educational mary from [employer]. Physical exam (Primary Care) Vital Signs: Oxygen Delivery Method Room Air 11/09/22 15:38 Tobacco/Smoking Status: Tobacco use Status Tobacco use date assessed 06/04/22 08/05/22 15:41 Patient Tobacco Use Status Former Tobacco user 08/05/22 15:41 Tobacco use type Cigarette 08/05/22 15:41 e-Cigarette/Vaping Use Never Used 08/05/22 15:41 Depression Screening Interpretation: Negative Thrive Assessment: Date of Thrive Assessment Date Thrive assessed 05/06/22 08/05/22 15:41 Const General: alert; No acute distress Eyes Conjunctivae: conjunctivae normal Resp Auscultation: clear to auscultation bilaterally Cardio Rate: regular rate Rhythm: regular rhythm GI Inspection: Yes normal to inspection Extrem General: Yes normal to inspection and No edema Assessment and Plan Assessment & Plan (1) Ventral hernia: Comment: repair 09/24/2022 Bradley Code(s): K43.9 - Ventral hernia without obstruction or gangrene (2) Hypercholesterolemia: Code(s): E78.00 - Pure hypercholesterolemia, unspecified Plan: Avoid fried foods, chicken skin, eggs, butter margarine, pastries and meat. Be it pork or beef they have a lot of cholesterol LDL goal of less than 70 patient is statin intolerant (3) CKD (chronic kidney disease): Code(s): N18.9 - Chronic kidney disease, unspecified Plan: Keep well hydrated avoid NSAIDs (4) Atherosclerotic cardiovascular disease: Code(s): I25.10 - Atherosclerotic heart disease of [place] coronary artery without angina pectoris Plan: Control the cholesterol, weight, blood pressure (5) Status post mitral valve repair: Comment: October 2021 Code(s): Z98.890 - Other specified postprocedural states Plan: Continue to follow-up with cardiology (6) KAREN on CPAP: Code(s): G47.33 - Obstructive sleep apnea (adult) (pediatric); Z99.89 - Dependence on other enabling machines and devices Plan: Continue to use the CPAP more than 4 hours a night and benefits from this (7) Congestive heart failure: Comment: discussed about monitoring the weight and that torsemide can be used to help take out the fluid to help with the breathing Code(s): I50.9 - Heart failure, unspecified Qualifiers: Heart failure type: systolic Heart failure chronicity: chronic Qualified Code(s): I50.22 - Chronic systolic (congestive) heart failure Plan: Continue to monitor continue with present medication (8) Anemia: Code(s): D64.9 - Anemia, unspecified Plan: Iron deficiency advised to take iron with vitamin-C Coding Level of Care Code Est Pt Level 4 (90394) Diagnoses Ventral hernia K43.9 Hypercholesterolemia E78.00 CKD (chronic kidney disease) N18.9 Atherosclerotic cardiovascular disease I25.10 Status post mitral valve repair Z98.890 KAREN on CPAP G47.33; Z99.89 Congestive heart failure I50.22 Heart failure type: systolic Heart failure chronicity: chronic Anemia D64.9
== END 2022-11-09 16:16 | disposition home or self-care (01) ==
PROVIDERS: Visit Provider Internal Medicine
DX: K43.9 Ventral hernia without obstruction or gangrene (principal); E78.00 Pure hypercholesterolemia, unspecified; I25.10 Atherosclerotic heart disease of native coronary artery without angina pectoris; I50.22 Chronic systolic (congestive) heart failure; G47.33 Obstructive sleep apnea (adult) (pediatric); Z99.89 Dependence on other enabling machines and devices; D64.9 Anemia, unspecified
CPT/HCPCS: 99214

== ENCOUNTER 2022-12-02 12:54 | Outpatient (AMB) | payer MEDICARE, SELFPAY ==
[2022-12-02 13:38] VITALS: BP 112/60; PULSE 66
--- NOTE | 2022-12-02 13:38 | A.OFFVIS_ITS ---
Intake Vital Signs 12/02/22 13:38 Height 62 ft Weight 182 lb 15.739 oz BMI 0.2 BP 112/60 Blood Pressure Location Rt brachial Position Sitting Pulse 66 Intake Visit Reasons: 6 mth f/up Intake Note: 6 month follow up Body And Frame Man Required: No Accompanied by: Self / Same As Patient Allergies gabapentin Allergy (Severe, Verified 12/02/22 13:40) Dizziness atorvastatin Allergy (Intermediate, Verified 12/02/22 13:40) Muscle cramps rosuvastatin Allergy (Intermediate, Verified 12/02/22 13:40) Muscle cramps Sulfa (Sulfonamide Antibiotics) [SULFA(SULFONAMIDE ANTIBIOTICS)] Allergy (Mild, Verified 12/02/22 13:40) RASH metoprolol Adverse Reaction (Severe, Verified 12/02/22 13:40) Chest Pain, sob, dizziness amoxicillin Adverse Reaction (Mild, Verified 12/02/22 13:40) Rash Medication List - Last Reconciled 12/02/22 by Jaylen Amin MD albuterol sulfate 90 mcg/actuation (ProAir HFA) 2 puffs inhalation Q4H PRN APAP Machine/Device As directed ascorbic acid (vitamin C) 1 g PO BID aspirin 81 mg PO DAILY cholecalciferol (vitamin D3) 25 mcg PO DAILY comp.stocking,thigh,long,large As directed 20-30 mm HG, black sodium chloride 0.65% (Saline Nasal) 2 sprays intranasal QID PRN HPI HPI Comments History of Present Illness Details Eliazar returns for follow-up regarding various cardiac issues including mitral regurgitation, atrial fibrillation, atypical flutter among others. In the past, he underwent atrial fibrillation as well as atypical flutter ablation as well as PVC ablation. Last year diagnosed with severe mitral regurgitation. Admitted to [facility] with acute heart failure that led to cardiac catheterization and then mitral valve surgery. Also underwent pacemaker implantation. Since last seen, he states he is doing pretty good. No complaints like angina or shortness of breath or in fact anything cardiac sounding. [facility] Medical History (Updated 11/09/22 @ 15:56 by Gerda Feldman MD) 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 Acute kidney injury Allergic rhinitis Anxiety Asthma Atherosclerotic cardiovascular disease Cardiomyopathy Cerebral infarction due to embolism of unspecified cerebral artery Congestive heart failure Congestive heart failure DVT (deep venous thrombosis) Gastroesophageal reflux disease Generalized anxiety disorder Hypercholesterolemia Impaired glucose tolerance Insomnia Lupus anticoagulant positive Nasal polyp Nonrheumatic mitral valve regurgitation Normally functioning cardiac pacemaker present Obstructive sleep apnea (adult) (pediatric) Osteoarthritis of knees, bilateral Paroxysmal atrial fibrillation Preoperative cardiovascular examination PVC (premature ventricular contraction) Rash Vertigo Surgical History H/O hernia repair History of arthroscopy of left knee History of cardiac radiofrequency ablation (~03/16/21) History of cardioversion (~01/17/20) History of tonsillectomy Hx of repair of right rotator cuff S/P medial meniscectomy of left knee Status post arthroscopy of left knee Status post mitral valve repair Ventral hernia Family History Father HTN (hypertension) CVA (cerebral vascular accident) Mother Skin cancer Maternal Uncle Colon cancer Son No problems noted. Daughter No problems noted. Family/Other Breast cancer Paternal Uncle Colon cancer Social History Housing: House Are you a primary child daycare worker to a significant other at home: No Do you presently have visiting nurse or other home services: No Alcohol intake: never Patient Tobacco Use Status: Former Tobacco user Quit Date: Tobacco use type: Cigarette Years Smoked: 12 +/- e-Cigarette/Vaping Use: Never Used Second Hand Smoke Exposure: No Current occupational status: retired Cognitive needs: No Hearing needs: No Vision needs: No Review of Systems Const Denies weakness ENT Denies dizziness Card Denies chest pain, Denies chest pain with activity, Denies syncope, Denies rapid heart rate, Denies pedal edema, Denies edema, Denies leg edema, Denies lightheadedness, Denies palpitations, Denies dyspnea, Denies dyspnea on exertion and Denies orthopnea Resp Denies cough, Denies dyspnea and Denies dyspnea on exertion GI Denies hematochezia and Denies change in stool character Musc Denies abnormal gait, Denies muscle cramps, Denies muscle weakness, Denies numbness, Denies radiating pain into limb and Denies tingling Neuro Denies abnormal gait, Denies dizziness, Denies syncope, Denies numbness, Denies tingling and Denies weakness Endo Denies palpitations Physical Exam Vital Signs: Last Vital Signs Pulse 66 12/02/22 13:38 BP 112/60 12/02/22 13:38 BMI result Body Mass Index 0.2 Const General: comfortable and no acute distress Orientation/consciousness: patient oriented x3 HEENT Other: Unremarkable Head: Yes normal to inspection Neck Neck: Yes normal visual inspection Chest Chest palpation & inspection: normal inspection of the chest Resp Auscultation: clear to auscultation bilaterally Cardio Palpation: normal PMI Heart sounds: S1 normal heart sound present, S2 normal heart sound present, no gallops, no murmurs and no rubs GI Palpation (GI): Soft to palpation Back/Spine/Pelvis Other: unremarkable Skin General skin exam: no rashes or lesions noted Neuro General: patient oriented x3 Extrem General: Yes normal to inspection Psych Mental Status: mental status grossly normal Assessment & Plan Assessment & Plan (1) Status post mitral valve repair: Comment: October 2021 Code(s): Z98.890 - Other specified postprocedural states Plan: Status post mitral valve annuloplasty. Postop echocardiogram shows normal valve function. We can recheck another echocardiogram. (2) Paroxysmal atrial fibrillation: Code(s): I48.0 - Paroxysmal atrial fibrillation Plan: Prior history of atrial fibrillation as well as atypical flutter and has undergone ablation for the same. He is also status post Maze procedure. Left atrial appendage amputation. History of intolerance to several antiarrhythmics. Off anticoagulation per his EP. (3) PVC (premature ventricular contraction): Code(s): I49.3 - Ventricular premature depolarization Plan: Status post ablation. Repeat Holter with improved burden. (4) Cardiomyopathy: Code(s): I42.9 - Cardiomyopathy, unspecified Qualifiers: Cardiomyopathy type: unspecified Qualified Code(s): I42.9 - Cardiomyopathy, unspecified Plan: He has had variable EFs at different times. Most recently, LVEF 51% after mitral valve repair. Clinically, no congestive heart failure. Used to be on Coreg but not anymore because of low blood pressure. Recheck echocardiogram for cardiac function. (5) Atherosclerotic cardiovascular disease: Code(s): I25.10 - Atherosclerotic heart disease of [place] coronary artery without angina pectoris Plan: Cardiac catheterization reviewed. There was 65% stenosis in the proximal part of 1st obtuse marginal. Otherwise unremarkable. Continue aspirin. Statin intolerant. Can try Zetia. Even without meds, LDL seems reasonable. (6) Normally functioning cardiac pacemaker present: Code(s): Z95.0 - Presence of cardiac pacemaker Plan: Normal function. Can be followed remotely. (7) CKD (chronic kidney disease): Code(s): N18.9 - Chronic kidney disease, unspecified Plan: Most recent creatinine is 2.6. Orders: Orders CA echo transthoracic complete Today I42.9 - Cardiomyopathy, unspecified Medications: New ezetimibe (Zetia) 10 mg PO DAILY 90 tabs 3RF I42.9 - Cardiomyopathy, unspecified Coding Level of Care Code Est Pt Level 4 (78204) Diagnoses Status post mitral valve repair Z98.890 Paroxysmal atrial fibrillation I48.0 PVC (premature ventricular contraction) I49.3 Cardiomyopathy I42.9 Cardiomyopathy type: unspecified Atherosclerotic cardiovascular disease I25.10 Normally functioning cardiac pacemaker present Z95.0 CKD (chronic kidney disease) N18.9
== END 2022-12-02 13:59 | disposition home or self-care (01) ==
PROVIDERS: PCP Internal Medicine; Referring Provider Internal Medicine; Visit Provider Internal Medicine
DX: Z98.890 Other specified postprocedural states (principal); I48.0 Paroxysmal atrial fibrillation; I49.3 Ventricular premature depolarization; I42.9 Cardiomyopathy, unspecified; I25.10 Atherosclerotic heart disease of native coronary artery without angina pectoris; Z95.0 Presence of cardiac pacemaker; N18.9 Chronic kidney disease, unspecified
CPT/HCPCS: 99214

== ENCOUNTER → 2022-12-02 12:54 | Outpatient (BNVA) | payer MEDICARE, SELFPAY | PROVIDERS: PCP Internal Medicine; Referring Provider Internal Medicine; Visit Provider Internal Medicine | DX: I49.3 Ventricular premature depolarization (principal); I42.9 Cardiomyopathy, unspecified; I25.10 Atherosclerotic heart disease of native coronary artery without angina pectoris; I48.0 Paroxysmal atrial fibrillation; N18.9 Chronic kidney disease, unspecified; Z95.0 Presence of cardiac pacemaker | CPT/HCPCS: 99212 ==

== ENCOUNTER → 2022-12-16 13:07 | Outpatient (REF) | payer MEDICARE, SELFPAY ==
--- NOTE | 2022-12-16 13:10 | CA_ITS ---
Transthoracic Echocardiogram Patient (Last, First, Middle): Eliazar Quispe F Gender: Male Date of : 1950 Age: 72 Procedure Date: 12/16/2022 Procedure Type: Transthoracic Echocardiogram Location: OP Height: 187.96 cm Weight: 82.1 kg BSA: 2.08 m2 Heart Rate: bpm BP: 136 / 78 mmHg Feed Inspection Supervisor: TO Referring MD: Jaylen Amin MD Symptoms: I42.9 - Cardiomyopathy, unspecified Study Quality: Adequate ECG Rhythm: Sinus Conclusions: - The left ventricular systolic function is normal. The calculated ejection fraction is 57% by biplane method. - s/p mitral valve repair. Mild to early moderate mitral regurgitation. Overall, satisfactory valvular function. - There is mild dilatation of the ascending aorta measuring 4.00 cm. Findings Left Ventricle Normal left ventricular cavity size. There is mildly increased left ventricular wall thickness. The left ventricular systolic function is normal. The calculated ejection fraction is 57% by biplane method. There is no evidence of regional wall motion abnormalities. Diastolic function is indeterminate on the basis of available data. Focal hypertrophy of the basal septum. Right Ventricle Mildly increased right ventricular cavity size. There is normal right ventricular systolic function. There is a pacemaker wire seen in the right ventricle. Atria Mild biatrial enlargement. Aortic Valve There is a normal trileaflet aortic valve. There is mild calcification of the aortic valve. There is no aortic valve regurgitation. Mitral Valve There is no mitral valve stenosis. s/p mitral valve repair. Mild to early moderate mitral regurgitation. Overall, satisfactory valvular function. ERO calculation likely inaccurate. Pulmonic Valve The pulmonic valve is likely normal. Tricuspid Valve Normal tricuspid valve structure. There is mild tricuspid valve regurgitation. There is no evidence of pulmonary hypertension. Great Vessels There is mild dilatation of the ascending aorta measuring 4.00 cm. Venous The inferior vena cava is normal in size and collapses greater than 50% with inspiration. Pericardium/Pleural There is no evidence of pericardial effusion. Prior Study Comparison Changes noted compared to prior study dated: 02/04/2022. LVEF slightly higher. Measurements 2D Linear Measurements IVSd: 1.30 0.6-0.9/0.6-1.0 cm LVIDd: 5.09 3.9-5.3/4.2-5.9 cm LVIDd Index: 2.45 2.4-3.2/2.2-3.1 cm/m2 LVIDs: 3.72 2.0-3.6 cm LVPWd: 1.06 0.7-1.1 cm LA Diam: 4.40 2.7-3.8/3.0-4.0 cm LAIDs Index: 2.12 1.5-2.3 cm/m2 LV Mass: 292.89 67-162/88-224 g LV Mass Index: 140.81 43-95/49-115 g/m2 LVOT Diam: 2.30 3.0+(-)1.3 cm 2D Systolic Function EF 4C: 58.40 >55% EF 2C: 56.40 >55% EF BiP: 56.60 >55% Mitral Valve MV VTI: 0.47 MV Pk Nura: 1.42 MV Mn Nura: 0.78 MV Pk Grad: 8.00 MV Mn Grad: 3.00 MV Pk E: 1.38 MV PK A: 0.39 MV Decel Time: 352.00 E/A: 3.50 E'Lateral: 9.36 E'Medial: 5.22 E/E' Med: 26.40 E/E' Lat: 14.70 PHT: 102.00 MVA PHT: 2.16 MVA Continuity: 1.52 Decel [place]: 3.96 MR Vol - PW Dopp: 48.60 MR VTI: 1.80 MR ERO: 27.00 MR Alias Nura: 0.35 MR RAD: 0.80 Aortic Valve AoV Pk Nura: 1.66 AoV Mn Nura: 1.14 AoV VTI: 0.33 AoV Pk Grad: 11.00 Aov Mn Grad: 6.00 DELIA Cont.VTI: 2.17 LVOT LVOT Pk Nura: 0.81 LVOT Mn Nura: 0.60 LVOT VTI: 0.17 LVOT Pk Grad: 3.00 LVOT Mn Grad: 2.00 LVOT Diam: 2.30 LVOT Area: 4.15 Diastolic Function MV Pk E: 1.38 MV Pk A: 0.39 E/A: 3.50 E'Medial: 5.22 E/E' Med: 26.40 E' Laterial: 9.36 E/E' Lat: 14.70 Right Ventricle TAPSE (mm): 17.10 TVS' Nura: 11.30 Tricuspid Valve TR Pk Nura: 2.74 TR Pk Grad: 30.00 RA Press: 3.00 RVSP: 33.00 Great Vessels Aorta Sinus of Valsalva: 3.73 2.0-3.5 cm Ao Asc: 4.00 2.1-3.4 cm Ao Arch: 3.90 Updated in Other Vendor System with Status of Final Jaylen Amin MD electronically signed on 12/19/2022 11:25:31 AM with status of Final
== END ==
LOC: HO.CARD 13:07
PROVIDERS: PCP Internal Medicine; Visit Provider Internal Medicine
DX: I42.9 Cardiomyopathy, unspecified (principal)
CPT/HCPCS: 93306

== ENCOUNTER → 2022-12-16 13:10 | Outpatient (BNV) | payer MEDICARE, SELFPAY | PROVIDERS: PCP Internal Medicine; Visit Provider Internal Medicine | DX: I34.0 Nonrheumatic mitral (valve) insufficiency (principal); I42.9 Cardiomyopathy, unspecified | CPT/HCPCS: 93306 ==

== ENCOUNTER → 2022-12-21 23:59 | Outpatient (BNV) | payer MEDICARE, SELFPAY ==
--- NOTE | 2022-12-22 15:43 | MHC.OFFVIS ---
Intake Intake Visit Reasons: Remote Device Check- [employer] Allergies gabapentin Allergy (Severe, Verified 12/02/22 13:40) Dizziness atorvastatin Allergy (Intermediate, Verified 12/02/22 13:40) Muscle cramps rosuvastatin Allergy (Intermediate, Verified 12/02/22 13:40) Muscle cramps Sulfa (Sulfonamide Antibiotics) [SULFA(SULFONAMIDE ANTIBIOTICS)] Allergy (Mild, Verified 12/02/22 13:40) RASH metoprolol Adverse Reaction (Severe, Verified 12/02/22 13:40) Chest Pain, sob, dizziness amoxicillin Adverse Reaction (Mild, Verified 12/02/22 13:40) Rash [facility] Medical History (Updated 11/09/22 @ 15:56 by Gerda Feldman MD) 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 Acute kidney injury Allergic rhinitis Anxiety Asthma Atherosclerotic cardiovascular disease Cardiomyopathy Cerebral infarction due to embolism of unspecified cerebral artery Congestive heart failure Congestive heart failure DVT (deep venous thrombosis) Gastroesophageal reflux disease Generalized anxiety disorder Hypercholesterolemia Impaired glucose tolerance Insomnia Lupus anticoagulant positive Nasal polyp Nonrheumatic mitral valve regurgitation Normally functioning cardiac pacemaker present Obstructive sleep apnea (adult) (pediatric) Osteoarthritis of knees, bilateral Paroxysmal atrial fibrillation Preoperative cardiovascular examination PVC (premature ventricular contraction) Rash Vertigo Surgical History H/O hernia repair History of arthroscopy of left knee History of cardiac radiofrequency ablation (~03/16/21) History of cardioversion (~01/17/20) History of tonsillectomy Hx of repair of right rotator cuff S/P medial meniscectomy of left knee Status post arthroscopy of left knee Status post mitral valve repair Ventral hernia Family History Father HTN (hypertension) CVA (cerebral vascular accident) Mother Skin cancer Maternal Uncle Colon cancer Son No problems noted. Daughter No problems noted. Family/Other Breast cancer Paternal Uncle Colon cancer Social History Housing: House Are you a primary team primary care physician to a significant other at home: No Do you presently have visiting nurse or other home services: No Alcohol intake: never Patient Tobacco Use Status: Former Tobacco user Quit Date: Tobacco use type: Cigarette Years Smoked: 12 +/- e-Cigarette/Vaping Use: Never Used Second Hand Smoke Exposure: No Current occupational status: retired Cognitive needs: No Hearing needs: No Vision needs: No Office Procedures Cardiac Device Check Cardiac Device Check Details: Date of service- 12/21/2022 ; Battery life 13 years; normal lead parameters; AP 79.6%; LICENSED NUCLEAR CONTROL ROOM OPERATOR <0.1%; very brief NSVT. Overall normal device function. [id number] Cardiac Device Interrogation, pacemaker Procedure code (CPT) selection complete Assessment & Plan Assessment & Plan (1) Cardiomyopathy: Code(s): I42.9 - Cardiomyopathy, unspecified Qualifiers: Cardiomyopathy type: unspecified Qualified Code(s): I42.9 - Cardiomyopathy, unspecified Coding Level of Care Code Procedure Only Diagnoses Cardiomyopathy I42.9 Cardiomyopathy type: unspecified CPT Codes Cardiac Device Check - Cardiac Device 12: [id number] Cardiac Device Interrogation, pacemaker ([id number])
== END ==
PROVIDERS: PCP Internal Medicine; Visit Provider Internal Medicine
DX: I48.0 Paroxysmal atrial fibrillation (principal); Z95.0 Presence of cardiac pacemaker
CPT/HCPCS: 93294

== ENCOUNTER 2023-01-12 12:45 | Outpatient (REF) | payer MEDICARE, SELFPAY ==
[2023-01-12 16:22] LABS: Hemoglobin 12.8 g/dl (14.0-18.0); Mean Corpuscular Volume 90.7 fL (80.0-98.0); Mean Platelet Volume 9.4 fL (9.4-12.4); Platelet Count 281 X10*3/uL (160-400); Red Blood Count 4.41 X10*6/uL (4.60-5.80); Red Cell Distribution Width 14.7 % (11.0-16.0); White Blood Count 5.5 X10*3/uL (4.8-10.8)
[2023-01-12 16:32] LABS: Anion Gap 14 (12-20); Blood Urea Nitrogen 42 mg/dL (9-16); Calcium 9.8 mg/dL (8.4-10.2); Carbon Dioxide 21 mmol/L (22-29); Chloride 110 mmol/L (96-108); Estimated Glomerular Filt Rate 34; Potassium 4.8 mmol/L (3.3-5.1); Sodium 140 mmol/L (135-145)
== END 2023-01-12 12:46 | disposition home or self-care (01) ==
LOC: HO.HMGCLDS 12:45
PROVIDERS: PCP Internal Medicine; Visit Provider Internal Medicine Hypertension Specialist
DX: N18.9 Chronic kidney disease, unspecified (principal)
CPT/HCPCS: 36415; 80051; 82310; 82565; 84520; 85027

== ENCOUNTER 2023-02-15 13:29 | Outpatient (REF) | payer MEDICARE, SELFPAY ==
[2023-02-15 16:12] LABS: MANUAL DIFF FLAG NO
[2023-02-15 16:46] LABS: Basophils Percent Auto 0.6 % (0-2); Eosinophils Absolute Auto 0.3 X10*3/uL (0.0-0.4); Eosinophils Percent Auto 5.9 % (0-4); Hematocrit 41.7 % (42.0-52.0); Hemoglobin 13.1 g/dl (14.0-18.0); Imm Gran Abs Auto 0.01 X10*3/uL (0.00-0.03); Imm Gran Pct Auto 0.2 % (0.0-0.4); Lymphocytes Absolute Auto 1.7 X10*3/uL (1.2-4.9); Lymphocytes Percent Auto 33.1 % (20-40); Mean Corpuscular HGB Conc 31.4 g/dl (31.0-36.0); Mean Corpuscular Hemoglobin 28.7 pg (27.0-33.0); Mean Corpuscular Volume 91.4 fL (80.0-98.0); Mean Platelet Volume 9.6 fL (9.4-12.4); Monocytes Absolute Auto 0.5 X10*3/uL (0.1-1.2); Monocytes Percent Auto 10.2 % (2-11); Neutrophils Absolute Auto 2.5 x10*3/uL (2.0-8.3); Platelet Count 275 X10*3/uL (160-400); Red Blood Count 4.56 X10*6/uL (4.60-5.80); Red Cell Distribution Width 14.1 % (11.0-16.0); White Blood Count 5.1 X10*3/uL (4.8-10.8)
[2023-02-15 16:58] LABS: Alanine Aminotransferase 27 U/L (0-40); Albumin Level 4.1 g/dL (3.5-5.0); Alkaline Phosphatase 90 U/L (39-117); Anion Gap 12 (12-20); Aspartate Amino Transferase 22 U/L (5-37); Bilirubin Total 0.5 mg/dL (0.0-1.0); Blood Urea Nitrogen 28 mg/dL (9-16); Calcium 9.8 mg/dL (8.4-10.2); Carbon Dioxide 24 mmol/L (22-29); Chloride 108 mmol/L (96-108); Estimated Glomerular Filt Rate 37; Glucose Random 88 mg/dL (60-115); Sodium 139 mmol/L (135-145); Total Protein 7.1 g/dL (6.5-8.0)
[2023-02-15 17:23] LABS: Prostate Specific Antigen Scr 0.46 ng/mL (<0.05-4.0)
== END 2023-02-15 13:30 | disposition home or self-care (01) ==
LOC: HO.HMGCLDS 13:29
PROVIDERS: PCP Internal Medicine; Visit Provider Internal Medicine
DX: I25.10 Atherosclerotic heart disease of native coronary artery without angina pectoris (principal); Z12.5 Encounter for screening for malignant neoplasm of prostate
CPT/HCPCS: 36415; 80053; 84153; 85025

== ENCOUNTER 2023-02-18 14:43 | Outpatient (AMB) | payer MEDICARE, SELFPAY ==
[2023-02-18 14:45] VITALS: BP 124/60; PULSE 76; O2SAT 100; BMI 24.3
--- NOTE | 2023-02-18 14:45 | MHC.PC.OV ---
Vital Signs 02/18/23 14:45 Height 6 ft 2 in Weight 189 lb BMI 24.3 BP 124/60 Blood Pressure Location Lt brachial Position Sitting Pulse 76 Pulse Source Pulse Oximeter Pulse Oximetry (%) 100 Oxygen Delivery Method Room Air Intake Visit Reasons: HTN, CKD, cholesterol , CAD Allergies gabapentin Allergy (Severe, Verified 02/18/23 14:46) Dizziness atorvastatin Allergy (Intermediate, Verified 02/18/23 14:46) Muscle cramps rosuvastatin Allergy (Intermediate, Verified 02/18/23 14:46) Muscle cramps Sulfa (Sulfonamide Antibiotics) [SULFA(SULFONAMIDE ANTIBIOTICS)] Allergy (Mild, Verified 02/18/23 14:46) RASH metoprolol Adverse Reaction (Severe, Verified 02/18/23 14:46) Chest Pain, sob, dizziness amoxicillin Adverse Reaction (Mild, Verified 02/18/23 14:46) Rash Medication List - Last Reconciled 02/18/23 by Gerda Feldman MD albuterol sulfate 90 mcg/actuation (ProAir HFA) 2 puffs inhalation Q4H PRN APAP Machine/Device As directed ascorbic acid (vitamin C) 1 g PO BID aspirin 81 mg PO DAILY cholecalciferol (vitamin D3) 25 mcg PO DAILY comp.stocking,thigh,long,large As directed 20-30 mm HG, black ezetimibe-simvastatin 10-10 mg 1 tab PO DAILY sodium chloride 0.65% (Saline Nasal) 2 sprays intranasal QID PRN zolpidem 10 mg PO BEDTIME PRN 90 days Tobacco use date assessed: 06/04/22 Fall risk assessment: No Falls in past year Last assessed Fall Risk: 02/18/23 Dental Screening Dental Screen Date: 02/18/23 Did you have a dental visit in the last 12 months?: Yes Did you have a dental problem in the last 6 months where you did not have access to dental care?: No Was dental information given to patient?: Patient has dentist HPI HTN, CKD, cholesterol , CAD HPI Details 72-year-old male with multiple medical problems hypercholesterolemia chronic kidney disease atherosclerotic cardiovascular disease status post mitral valve repair obstructive sleep apnea congestive heart failure and anemia last seen in October 2022. Up-to-date with [facility]. Review of the notes patient so Orthopedics January 2023 bilateral knee osteoarthritis had injections with do remain. Patient also follows up with Nephrology stage IIIB chronic kidney disease moderate right-sided hydronephrosis question of obstructive uropathy, with hypertension controlled. Patient also follows up with Cardiology continuing with anticoagulation. Admitted to [facility] last year acute heart failure cardiac catheterization and then mitral valve surgery with pacemaker implantation. Echocardiogram November 2022The left ventricular systolic function is normal. The calculated ejection fraction is 57% by biplane method. - s/p mitral valve repair. Mild to early moderate mitral regurgitation. Overall, satisfactory valvular function. - There is mild dilatation of the ascending aorta measuring 4.00 cm. 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 Atherosclerotic cardiovascular disease Normally functioning cardiac pacemaker present Acute kidney injury Generalized anxiety disorder Osteoarthritis of knees, bilateral Obstructive sleep apnea (adult) (pediatric) Preoperative cardiovascular examination DVT (deep venous thrombosis) Nasal polyp Asthma Nonrheumatic mitral valve regurgitation Cardiomyopathy Cerebral infarction due to embolism of unspecified cerebral artery PVC (premature ventricular contraction) Anxiety Allergic rhinitis Insomnia Congestive heart failure Gastroesophageal reflux disease Impaired glucose tolerance Congestive heart failure Lupus anticoagulant positive Paroxysmal atrial fibrillation Hypercholesterolemia Surgical History H/O hernia repair Ventral hernia Status post mitral valve repair History of cardiac radiofrequency ablation (~03/16/21) Status post arthroscopy of left knee History of cardioversion (~01/17/20) S/P medial meniscectomy of left knee History of arthroscopy of left knee Hx of repair of right rotator cuff History of tonsillectomy Family History Father HTN (hypertension) CVA (cerebral vascular accident) Mother Skin cancer Maternal Uncle Colon cancer Son No problems noted. Daughter No problems noted. Family/Other Breast cancer Paternal Uncle Colon cancer Social History Housing: House Are you a primary home care assistant to a significant other at home: No Do you presently have visiting nurse or other home services: No Alcohol intake: never Patient Tobacco Use Status: Former Tobacco user Quit Date: Tobacco use type: Cigarette Years Smoked: 12 +/- e-Cigarette/Vaping Use: Never Used Second Hand Smoke Exposure: No Current occupational status: retired Cognitive needs: No Hearing needs: No Vision needs: No Questionnaire PHQ-9 Over the last 2 weeks, how often have you been bothered by any of the following problems? 1. Little interest or pleasure in doing things: not at all 2. Feeling down, depressed, or hopeless: not at all 3. Trouble falling or staying asleep, or sleeping too much: not at all 4. Feeling tired or having little energy: not at all 5. Poor appetite or overeating: not at all 6. Feeling bad about yourself - or that you are a failure or have let yourself or your family down: not at all 7. Trouble concentrating on things, such as reading the newspaper or watching television: not at all 8. Moving or speaking so slowly that other people could have noticed. Or the opposite - being so fidgety or restless that you have been moving around a lot more than usual: not at all 9. Thoughts that you would be better off or of hurting yourself in some way: not at all Total score: 0 Depression Screening Interpretation: Negative Depression Screening Done: Yes Source: Developed by Drs. Branden Michael, Frederic Irwin and colleagues, with an educational mary from [employer]. Thrive Questionnaire Date Thrive assessed: 05/06/22 AUDIT C Alcohol Use Questionnaire (AUDIT-C) 1. How often do you have a drink containing alcohol?: Monthly or less 2. How many drinks containing alcohol do you have on a typical day when you are drinking?: 1 or 2 3. How often do you have six or more drinks on one occasion?: Never Total Score: 1 VAUGHN-7 AMB Questionnaire VAUGHN-7 Date VAUGHN - 7 assessed: 05/06/22 Source: Developed by Drs. Branden Michael, Frederic Irwin and colleagues, with an educational mary from [employer]. Physical exam (Primary Care) Vital Signs: Last Vital Signs Pulse 76 02/18/23 14:45 BP 124/60 02/18/23 14:45 Pulse Ox 100 02/18/23 14:45 Oxygen Delivery Method Room Air 02/18/23 14:45 BMI result Body Mass Index 24.3 Tobacco/Smoking Status: Tobacco use Status Tobacco use date assessed 06/04/22 02/18/23 14:50 Patient Tobacco Use Status Former Tobacco user 02/18/23 14:50 Tobacco use type Cigarette 02/18/23 14:50 e-Cigarette/Vaping Use Never Used 02/18/23 14:50 PHQ-9: PHQ-9 Score PHQ-9: Total score 0 02/18/23 14:50 Depression Screening Interpretation: Negative Thrive Assessment: Date of Thrive Assessment Date Thrive assessed 05/06/22 02/18/23 14:50 Const General: alert; No acute distress Eyes Conjunctivae: conjunctivae normal Resp Auscultation: clear to auscultation bilaterally Cardio Rate: regular rate Rhythm: regular rhythm GI Inspection: Yes normal to inspection Extrem General: Yes normal to inspection and No edema Assessment and Plan Assessment & Plan (1) Nonrheumatic mitral valve regurgitation: Comment: Mitral valve repair 11/12/2021 34 cause [place] procedure left atrial appendage amputation Code(s): I34.0 - Nonrheumatic mitral (valve) insufficiency Plan: Patient continues to follow-up with cardiology (2) Paroxysmal atrial fibrillation: Code(s): I48.0 - Paroxysmal atrial fibrillation Plan: Continue with anticoagulation (3) Congestive heart failure: Comment: discussed about monitoring the weight and that torsemide can be used to help take out the fluid to help with the breathing Code(s): I50.9 - Heart failure, unspecified Qualifiers: Heart failure type: systolic Heart failure chronicity: chronic Qualified Code(s): I50.22 - Chronic systolic (congestive) heart failure Plan: Continue to weigh daily and continue with the medications (4) Hypercholesterolemia: Code(s): E78.00 - Pure hypercholesterolemia, unspecified Plan: Avoid fried foods, chicken skin, eggs, butter margarine, pastries and meat. Be it pork or beef they have a lot of cholesterol LDL goal of less than 70 and triglyceride of less than 150 patient on simvastatin and Zetia (5) Status post mitral valve repair: Comment: October 2021 Code(s): Z98.890 - Other specified postprocedural states Plan: Continue follow-up cardiology (6) KAREN on CPAP: Code(s): G47.33 - Obstructive sleep apnea (adult) (pediatric); Z99.89 - Dependence on other enabling machines and devices Plan: Continue to use the CPAP more than 4 hours a night and benefits from this (7) Ascending aorta dilatation: Comment: 11/2022 4 cm Code(s): I77.810 - Thoracic aortic ectasia Plan: echo 11/2022 continue to monitor Orders: Orders Comprehensive Met. Panel 3 Months E78.00 - Pure hypercholesterolemia, unspecified Free T4 (Free Thyroxine) 3 Months E78.00 - Pure hypercholesterolemia, unspecified Vitamin B12 and Folate 3 Months E78.00 - Pure hypercholesterolemia, unspecified Prostate Specific Antigen Scr 3 Months E78.00 - Pure hypercholesterolemia, unspecified Complete Blood Count Auto Diff 3 Months E78.00 - Pure hypercholesterolemia, unspecified Thyroid Stimulating Hormone 3 Months E78.00 - Pure hypercholesterolemia, unspecified Lipid Panel 3 Months E78.00 - Pure hypercholesterolemia, unspecified B Type Natriuretic Peptide 3 Months N18.9 - Chronic kidney disease, unspecified Medications: Refilled zolpidem 10 mg PO BEDTIME PRN 45 tabs 0RF insomnia 90 days G47.00 - Insomnia, unspecified Coding Level of Care Code Est Pt Level 4 (86103) Diagnoses Nonrheumatic mitral valve regurgitation I34.0 Paroxysmal atrial fibrillation I48.0 Chronic systolic congestive heart failure I50.22 Heart failure type: systolic Heart failure chronicity: chronic Hypercholesterolemia E78.00 Status post mitral valve repair Z98.890 KAREN on CPAP G47.33; Z99.89 Ascending aorta dilatation I77.810
== END 2023-02-18 16:37 | disposition home or self-care (01) ==
PROVIDERS: PCP Internal Medicine; Visit Provider Internal Medicine
DX: I48.0 Paroxysmal atrial fibrillation (principal); I50.22 Chronic systolic (congestive) heart failure; I77.810 Thoracic aortic ectasia; I63.40 Cerebral infarction due to embolism of unspecified cerebral artery; I34.0 Nonrheumatic mitral (valve) insufficiency; E78.00 Pure hypercholesterolemia, unspecified; Z98.890 Other specified postprocedural states; G47.33 Obstructive sleep apnea (adult) (pediatric); Z99.89 Dependence on other enabling machines and devices
CPT/HCPCS: 99214

== ENCOUNTER → 2023-03-22 23:59 | Outpatient (BNV) | payer MEDICARE, SELFPAY ==
--- NOTE | 2023-03-22 14:33 | A.OFFVIS_ITS ---
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 Atherosclerotic cardiovascular disease Normally functioning cardiac pacemaker present Acute kidney injury Generalized anxiety disorder Osteoarthritis of knees, bilateral Obstructive sleep apnea (adult) (pediatric) Preoperative cardiovascular examination DVT (deep venous thrombosis) Nasal polyp Asthma Nonrheumatic mitral valve regurgitation Cardiomyopathy Cerebral infarction due to embolism of unspecified cerebral artery PVC (premature ventricular contraction) Anxiety Allergic rhinitis Insomnia Congestive heart failure Gastroesophageal reflux disease Impaired glucose tolerance Congestive heart failure Lupus anticoagulant positive Paroxysmal atrial fibrillation Hypercholesterolemia Surgical History H/O hernia repair Ventral hernia Status post mitral valve repair History of cardiac radiofrequency ablation (~03/16/21) Status post arthroscopy of left knee History of cardioversion (~01/17/20) S/P medial meniscectomy of left knee History of arthroscopy of left knee Hx of repair of right rotator cuff History of tonsillectomy Family History Father HTN (hypertension) CVA (cerebral vascular accident) Mother Skin cancer Maternal Uncle Colon cancer Son No problems noted. Daughter No problems noted. Family/Other Breast cancer Paternal Uncle Colon cancer Social History Housing: House Are you a primary insurance healthcare representative to a significant other at home: No Do you presently have visiting nurse or other home services: No Alcohol intake: never Patient Tobacco Use Status: Former Tobacco user Quit Date: Tobacco use type: Cigarette Years Smoked: 12 +/- e-Cigarette/Vaping Use: Never Used Second Hand Smoke Exposure: No Current occupational status: retired Cognitive needs: No Hearing needs: No Vision needs: No Office Procedures Cardiac Device Check Cardiac Device Check Details: Date of service- 03/22/2023 ; Battery life >12 years; normal lead parameters; AP >78%; SOFTWARE PROJECT MANAGER <0.1%; suspect atrial tach episodes, but not prolonged. Overall normal device function. [id number] Cardiac Device Interrogation, pacemaker Procedure code (CPT) selection complete Assessment & Plan Assessment & Plan (1) Cardiomyopathy: Code(s): I42.9 - Cardiomyopathy, unspecified Qualifiers: Cardiomyopathy type: unspecified Qualified Code(s): I42.9 - Cardiomyopathy, unspecified (2) Paroxysmal atrial fibrillation: Code(s): I48.0 - Paroxysmal atrial fibrillation Coding Level of Care Code Procedure Only Diagnoses Cardiomyopathy, unspecified type I42.9 Cardiomyopathy type: unspecified Paroxysmal atrial fibrillation I48.0 CPT Codes Cardiac Device Check - Cardiac Device 12: [id number] Cardiac Device Interrogation, pacemaker ([id number])
== END ==
PROVIDERS: PCP Internal Medicine; Visit Provider Internal Medicine
DX: I48.0 Paroxysmal atrial fibrillation (principal); Z95.0 Presence of cardiac pacemaker
CPT/HCPCS: 93294

== ENCOUNTER 2023-05-27 11:31 | Outpatient (REF) | payer MEDICARE, SELFPAY ==
[2023-05-27 13:11] LABS: MANUAL DIFF FLAG NO
[2023-05-27 13:28] LABS: Basophils Percent Auto 0.4 % (0-2); Eosinophils Absolute Auto 0.4 X10*3/uL (0.0-0.4); Eosinophils Percent Auto 7.9 % (0-4); Hematocrit 39.5 % (42.0-52.0); Hemoglobin 12.6 g/dl (14.0-18.0); Imm Gran Abs Auto 0.01 X10*3/uL (0.00-0.03); Imm Gran Pct Auto 0.2 % (0.0-0.4); Lymphocytes Absolute Auto 1.7 X10*3/uL (1.2-4.9); Lymphocytes Percent Auto 33.9 % (20-40); Mean Corpuscular HGB Conc 31.9 g/dl (31.0-36.0); Mean Platelet Volume 9.7 fL (9.4-12.4); Monocytes Absolute Auto 0.6 X10*3/uL (0.1-1.2); Neutrophils Absolute Auto 2.3 x10*3/uL (2.0-8.3); Neutrophils Percent Auto 45.6 % (45-73); Platelet Count 244 X10*3/uL (160-400); Red Blood Count 4.34 X10*6/uL (4.60-5.80); Red Cell Distribution Width 13.7 % (11.0-16.0); White Blood Count 5.1 X10*3/uL (4.8-10.8)
[2023-05-27 14:09] LABS: Alanine Aminotransferase 19 U/L (0-40); Alkaline Phosphatase 96 U/L (39-117); Anion Gap 11 (12-20); Aspartate Amino Transferase 20 U/L (5-37); Bilirubin Total 0.7 mg/dL (0.0-1.0); Blood Urea Nitrogen 35 mg/dL (9-16); Calcium 9.3 mg/dL (8.4-10.2); Carbon Dioxide 24 mmol/L (22-29); Chloride 107 mmol/L (96-108); Cholesterol 154 mg/dL (<200); Estimated Glomerular Filt Rate 36; Glucose Random 98 mg/dL (60-115); HDL Cholesterol 89 mg/dL (>40); LDL Cholesterol Calculated 61 mg/dL (<100); Potassium 4.3 mmol/L (3.3-5.1); Sodium 138 mmol/L (135-145); Triglycerides 24 mg/dL (<150)
[2023-05-27 14:19] LABS: B Type Natriuretic Peptide 118 pg/mL (<100)
[2023-05-27 14:29] LABS: Free T4 (Free Thyroxine) 0.82 ng/dL (0.71-1.85); Thyroid Stimulating Hormone 1.66 uIU/mL (0.32-4.0)
[2023-05-27 15:15] LABS: Folate 18.8 ng/mL (> or = 4.0); Prostate Specific Antigen Scr 0.44 ng/mL (<0.05-4.0); Vitamin B12 567 pg/mL (200-900)
== END 2023-05-27 11:32 | disposition home or self-care (01) ==
LOC: HO.HMGCLDS 11:31
PROVIDERS: PCP Internal Medicine; Visit Provider Internal Medicine
DX: E78.00 Pure hypercholesterolemia, unspecified (principal); N18.9 Chronic kidney disease, unspecified; I25.10 Atherosclerotic heart disease of native coronary artery without angina pectoris; Z12.5 Encounter for screening for malignant neoplasm of prostate
CPT/HCPCS: 36415; 80053; 80061; 82607; 82746; 83880; 84153; 84439; 84443; 85025

== ENCOUNTER 2023-06-01 10:32 | Outpatient (AMB) | payer MEDICARE, SELFPAY ==
[2023-06-01 10:34] VITALS: BP 134/70; PULSE 75; TEMP 36.9; O2SAT 96; BMI 25.2
--- NOTE | 2023-06-01 10:34 | AM.OFFWIN_ITS ---
Intake Vital Signs 06/01/23 10:34 Height 6 ft 2 in Weight 196 lb BMI 25.2 BP 134/70 Blood Pressure Location Rt brachial Position Sitting Pulse 75 Pulse Source Pulse Oximeter Temp 98.5 F Temp Source Oral Pulse Oximetry (%) 96 Oxygen Delivery Method Room Air Intake Visit Reasons: ESt/sore throat (lobby masked) Intake Note: Pt is here c/o sore throat for one week. Patient Tobacco Use Status: Former Tobacco user Quit Date: Allergies gabapentin Allergy (Severe, Verified 06/01/23 10:35) Dizziness atorvastatin Allergy (Intermediate, Verified 06/01/23 10:35) Muscle cramps rosuvastatin Allergy (Intermediate, Verified 06/01/23 10:35) Muscle cramps Sulfa (Sulfonamide Antibiotics) [SULFA(SULFONAMIDE ANTIBIOTICS)] Allergy (Mild, Verified 06/01/23 10:35) RASH metoprolol Adverse Reaction (Severe, Verified 06/01/23 10:35) Chest Pain, sob, dizziness amoxicillin Adverse Reaction (Mild, Verified 06/01/23 10:35) Rash Do you need a note to return to daycare/school/sports/work: No HPI HPI Comments History of Present Illness Details Patient is a 73yo M who presents with ST he said symptoms since Tuesday + congestion, dry cough and ST St is the worst symptom; 8/10 Worse with swallowing; no inability to swallow No ear pain, fever, chills, CP or SOB Has tried tylenol OTC without relief No sick contacts PFSH Medical History Vertigo 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 Atherosclerotic cardiovascular disease Normally functioning cardiac pacemaker present Acute kidney injury Generalized anxiety disorder Osteoarthritis of knees, bilateral Obstructive sleep apnea (adult) (pediatric) Preoperative cardiovascular examination DVT (deep venous thrombosis) Nasal polyp Asthma Nonrheumatic mitral valve regurgitation Cardiomyopathy Cerebral infarction due to embolism of unspecified cerebral artery PVC (premature ventricular contraction) Anxiety Allergic rhinitis Insomnia Congestive heart failure Gastroesophageal reflux disease Impaired glucose tolerance Congestive heart failure Lupus anticoagulant positive Paroxysmal atrial fibrillation Hypercholesterolemia Surgical History H/O hernia repair Ventral hernia Status post mitral valve repair History of cardiac radiofrequency ablation (~03/16/21) Status post arthroscopy of left knee History of cardioversion (~01/17/20) S/P medial meniscectomy of left knee History of arthroscopy of left knee Hx of repair of right rotator cuff History of tonsillectomy Family History Father HTN (hypertension) CVA (cerebral vascular accident) Mother Skin cancer Maternal Uncle Colon cancer Son No problems noted. Daughter No problems noted. Family/Other Breast cancer Paternal Uncle Colon cancer Social History Housing: House Are you a primary occasional caregiver to a significant other at home: No Do you presently have visiting nurse or other home services: No Alcohol intake: never Patient Tobacco Use Status: Former Tobacco user Quit Date: Tobacco use type: Cigarette Years Smoked: 12 +/- e-Cigarette/Vaping Use: Never Used Second Hand Smoke Exposure: No Current occupational status: retired Cognitive needs: No Hearing needs: No Vision needs: No Review of Systems Const Denies body aches, Denies chills, Denies fatigue and Denies fever(s) ENT Denies otalgia, Reports nasal congestion, Denies nasal discharge and Reports sore throat Card Denies chest pain and Denies dyspnea Resp Reports cough and Denies dyspnea GI Denies abdominal pain Endo Denies fatigue Physical Exam Vital Signs: Last Vital Signs Temp 98.5 F 06/01/23 10:34 Pulse 75 06/01/23 10:34 BP 134/70 06/01/23 10:34 Pulse Ox 96 06/01/23 10:34 Oxygen Delivery Method Room Air 06/01/23 10:34 BMI result Body Mass Index 25.2 General: Non-toxic, NAD. Speaking full sentences. Skin: Warm dry throughout HENT: Airway patent. Uvula midline. Some pharyngeal erythema more on R side in back of pharynx. No exudates or edema. No WATER RECLAMATION SYSTEMS OPERATOR. Bilateral canals clear. TM non-erythematous, non-bulging. No TM perforation or hemotympanum noted. Respiratory: CTA bilaterally. No wheezes, rales or rhonchi Cardiac: RRR. No murmur MSK: Full ROM extremities. Neurology: A/O. No aphasia or facial droop. Gait without abnormality Psych: Good mood and affect Results AMB Rapid Strep AMB Rapid Strep Negative Last Edit by Alyce Leon CMA on 06/01/23 10:54 Assessment & Plan Assessment & Plan (1) Pharyngitis: Code(s): J02.9 - Acute pharyngitis, unspecified Qualifiers: Pharyngitis/tonsillitis etiology: unspecified etiology Qualified Code(s): J02.9 - Acute pharyngitis, unspecified Plan: Patient seen and evaluated. Strep negative centor score low; no concern strep. No WATER RECLAMATION SYSTEMS OPERATOR on exam Tylenol/warm garggles, tessalon Patient gave verbal understanding and had no additional questions or concerns at time of discharge All questions answered Orders: Orders AMB Rapid Strep Screen Today Z13.9 - Encounter for screening, unspecified Medications: New 2 benzonatate 100 mg PO BID-TID PRN 14 caps 0RF cough Coding Level of Care Code Est Pt Level 3 (95027) Diagnoses Pharyngitis, unspecified etiology J02.9 Pharyngitis/tonsillitis etiology: unspecified etiology
== END 2023-06-01 11:30 | disposition home or self-care (01) ==
PROVIDERS: PCP Internal Medicine; Visit Provider Physician Assistant
DX: J02.9 Acute pharyngitis, unspecified (principal)
CPT/HCPCS: 87880; 99213

== ENCOUNTER 2023-06-07 13:50 | Outpatient (AMB) | payer MEDICARE, SELFPAY ==
[2023-06-07 13:54] VITALS: BP 136/84; PULSE 67; BMI 25.0
--- NOTE | 2023-06-07 13:54 | A.OFFVIS_ITS ---
Intake Vital Signs 06/07/23 13:54 Height 6 ft 2 in Weight 194 lb 7.163 oz BMI 25.0 BP 136/84 Blood Pressure Location Lt brachial Position Sitting Pulse 67 Intake Visit Reasons: 6 mth fup Intake Note: 6 month follow up w. 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: No Accompanied by: Self / Same As Patient Allergies gabapentin Allergy (Severe, Verified 06/07/23 13:54) Dizziness atorvastatin Allergy (Intermediate, Verified 06/07/23 13:54) Muscle cramps rosuvastatin Allergy (Intermediate, Verified 06/07/23 13:54) Muscle cramps Sulfa (Sulfonamide Antibiotics) [SULFA(SULFONAMIDE ANTIBIOTICS)] Allergy (Mild, Verified 06/07/23 13:54) RASH metoprolol Adverse Reaction (Severe, Verified 06/07/23 13:54) Chest Pain, sob, dizziness amoxicillin Adverse Reaction (Mild, Verified 06/07/23 13:54) Rash Medication List - Last Reconciled 06/07/23 by Jaylen Amin MD albuterol sulfate 90 mcg/actuation (ProAir HFA) 2 puffs inhalation Q4H PRN APAP Machine/Device As directed ascorbic acid (vitamin C) 1 g PO BID aspirin 81 mg PO DAILY benzonatate 100 mg PO BID-TID PRN cholecalciferol (vitamin D3) 25 mcg PO DAILY comp.stocking,thigh,long,large As directed 20-30 mm HG, black ezetimibe-simvastatin 10-10 mg 1 tab PO DAILY sodium chloride 0.65% (Saline Nasal) 2 sprays intranasal QID PRN zolpidem 10 mg PO BEDTIME PRN 90 days HPI HPI Comments History of Present Illness Details Eliazar returns for follow-up regarding various cardiac issues including mitral regurgitation, atrial fibrillation, atypical flutter, PVCs among others. In the past, he underwent atrial fibrillation as well as atypical flutter ablation as well as PVC ablation. In 2021, diagnosed with severe mitral regurgitation. Admitted to [facility] with acute heart failure that led to cardiac catheterization and then mitral valve surgery. Also underwent pacemaker implantation. Since last seen, he states he is doing pretty good. He states he does not have any complaints like angina or shortness of breath or in fact anything cardiac type. 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 Atherosclerotic cardiovascular disease Normally functioning cardiac pacemaker present Acute kidney injury Generalized anxiety disorder Osteoarthritis of knees, bilateral Obstructive sleep apnea (adult) (pediatric) Preoperative cardiovascular examination DVT (deep venous thrombosis) Nasal polyp Asthma Nonrheumatic mitral valve regurgitation Cardiomyopathy Cerebral infarction due to embolism of unspecified cerebral artery PVC (premature ventricular contraction) Anxiety Allergic rhinitis Insomnia Congestive heart failure Gastroesophageal reflux disease Impaired glucose tolerance Congestive heart failure Lupus anticoagulant positive Paroxysmal atrial fibrillation Hypercholesterolemia Surgical History H/O hernia repair Ventral hernia Status post mitral valve repair History of cardiac radiofrequency ablation (~03/16/21) Status post arthroscopy of left knee History of cardioversion (~01/17/20) S/P medial meniscectomy of left knee History of arthroscopy of left knee Hx of repair of right rotator cuff History of tonsillectomy Family History Father HTN (hypertension) CVA (cerebral vascular accident) Mother Skin cancer Maternal Uncle Colon cancer Son No problems noted. Daughter No problems noted. Family/Other Breast cancer Paternal Uncle Colon cancer Social History Housing: House Are you a primary medicare biller to a significant other at home: No Do you presently have visiting nurse or other home services: No Alcohol intake: never Patient Tobacco Use Status: Former Tobacco user Quit Date: Tobacco use type: Cigarette Years Smoked: 12 +/- e-Cigarette/Vaping Use: Never Used Second Hand Smoke Exposure: No Current occupational status: retired Cognitive needs: No Hearing needs: No Vision needs: No Review of Systems Const Denies weakness ENT Denies dizziness Card Reports chest pain, Reports chest pain at rest, Reports chest pain with activity, Denies syncope, Denies rapid heart rate, Denies pedal edema, Denies edema, Denies leg edema, Denies lightheadedness, Denies palpitations, Denies dyspnea, Denies dyspnea on exertion and Denies orthopnea Resp Denies cough, Denies dyspnea and Denies dyspnea on exertion GI Denies hematochezia and Denies change in stool character Musc Denies abnormal gait, Denies muscle cramps, Denies muscle weakness, Denies numbness, Denies radiating pain into limb and Denies tingling Neuro Denies abnormal gait, Denies dizziness, Denies syncope, Denies numbness, Denies tingling and Denies weakness Endo Denies palpitations Physical Exam Vital Signs: Last Vital Signs Pulse 67 06/07/23 13:54 BP 136/84 06/07/23 13:54 BMI result Body Mass Index 25.0 Const General: comfortable and no acute distress Orientation/consciousness: patient oriented x3 HEENT Other: Unremarkable Head: Yes normal to inspection Neck Neck: Yes normal visual inspection Chest Chest palpation & inspection: normal inspection of the chest Resp Auscultation: clear to auscultation bilaterally Cardio Palpation: normal PMI Heart sounds: S1 normal heart sound present, S2 normal heart sound present, no gallops, no murmurs and no rubs GI Palpation (GI): Soft to palpation Back/Spine/Pelvis Other: unremarkable Skin General skin exam: no rashes or lesions noted Neuro General: patient oriented x3 Extrem General: Yes normal to inspection Psych Mental Status: mental status grossly normal Office Procedures EKG Details: EKG with possible atrial paced rhythm with right bundle-branch block. However, pacing spikes are not very well seen. [id number], Complete Assessment & Plan Assessment & Plan (1) Status post mitral valve repair: Comment: October 2021 Code(s): Z98.890 - Other specified postprocedural states Plan: Status post mitral valve annuloplasty. Postop echocardiogram shows normal valve function. In the last echocardiogram, mild to early moderate mitral regurgitation. We can recheck before next visit. (2) Paroxysmal atrial fibrillation: Code(s): I48.0 - Paroxysmal atrial fibrillation Plan: Prior history of atrial fibrillation as well as atypical flutter and has undergone ablation for the same. He is also status post Maze procedure. Left atrial appendage amputation. History of intolerance to several antiarrhythmics. Off anticoagulation per his EP. According to him, he saw EP yesterday and was told that there were some brief arrhythmia issues on the device check. Will need to get that visit note. If necessary, would rather lean towards Coreg as he did not tolerate metoprolol very well in the past. (3) PVC (premature ventricular contraction): Code(s): I49.3 - Ventricular premature depolarization Plan: Status post ablation. In the last Holter from 03/2022, PVC burden was only 0.6%. (4) Cardiomyopathy: Code(s): I42.9 - Cardiomyopathy, unspecified Qualifiers: Cardiomyopathy type: unspecified Qualified Code(s): I42.9 - Cardiomyopathy, unspecified Plan: He has had variable EFs at different times. Most recent LVEF 57%. Clinically, no congestive heart failure. Used to be on Coreg but not anymore because of low blood pressure. (5) Atherosclerotic cardiovascular disease: Code(s): I25.10 - Atherosclerotic heart disease of [place] coronary artery without angina pectoris Plan: Cardiac catheterization reviewed. There was 65% stenosis in the proximal part of 1st obtuse marginal. Otherwise unremarkable. Continue aspirin. Statin intolerant. On Zetia. LDL 61 mg/dL. (6) Normally functioning cardiac pacemaker present: Code(s): Z95.0 - Presence of cardiac pacemaker Plan: Followed remotely. We can recheck with next visit. (7) CKD (chronic kidney disease): Code(s): N18.9 - Chronic kidney disease, unspecified Plan: In the past, as much as 2.6. Most recently 1.8. Seems improving. Coding Level of Care Code Est Pt Level 4 (67128) Diagnoses Status post mitral valve repair Z98.890 Paroxysmal atrial fibrillation I48.0 PVC (premature ventricular contraction) I49.3 Cardiomyopathy, unspecified type I42.9 Cardiomyopathy type: unspecified Atherosclerotic cardiovascular disease I25.10 Normally functioning cardiac pacemaker present Z95.0 CKD (chronic kidney disease) N18.9 CPT Codes EKG - CPT: 13391-[id number], Complete ([id number])
== END 2023-06-07 14:18 | disposition home or self-care (01) ==
PROVIDERS: PCP Internal Medicine; Visit Provider Internal Medicine
DX: Z98.890 Other specified postprocedural states (principal); I48.0 Paroxysmal atrial fibrillation; I49.3 Ventricular premature depolarization; I42.9 Cardiomyopathy, unspecified; I25.10 Atherosclerotic heart disease of native coronary artery without angina pectoris; Z95.0 Presence of cardiac pacemaker; N18.9 Chronic kidney disease, unspecified
CPT/HCPCS: 93010; 99214

== ENCOUNTER → 2023-06-07 13:50 | Outpatient (BNVA) | payer MEDICARE, SELFPAY | PROVIDERS: PCP Internal Medicine; Visit Provider Internal Medicine | DX: I48.0 Paroxysmal atrial fibrillation (principal); I49.3 Ventricular premature depolarization; I42.9 Cardiomyopathy, unspecified; I25.10 Atherosclerotic heart disease of native coronary artery without angina pectoris; N18.9 Chronic kidney disease, unspecified; Z95.0 Presence of cardiac pacemaker; Z98.890 Other specified postprocedural states | CPT/HCPCS: 93005; 99212 ==

== ENCOUNTER → 2023-06-21 23:59 | Outpatient (BNV) | payer MEDICARE, SELFPAY ==
--- NOTE | 2023-06-22 14:34 | MHC.OFFVIS ---
Intake Intake Visit Reasons: Remote Device Check- [employer] Allergies gabapentin Allergy (Severe, Verified 06/07/23 13:54) Dizziness atorvastatin Allergy (Intermediate, Verified 06/07/23 13:54) Muscle cramps rosuvastatin Allergy (Intermediate, Verified 06/07/23 13:54) Muscle cramps Sulfa (Sulfonamide Antibiotics) [SULFA(SULFONAMIDE ANTIBIOTICS)] Allergy (Mild, Verified 06/07/23 13:54) RASH metoprolol Adverse Reaction (Severe, Verified 06/07/23 13:54) Chest Pain, sob, dizziness amoxicillin Adverse Reaction (Mild, Verified 06/07/23 13:54) Rash [facility] Medical History Vertigo 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 Atherosclerotic cardiovascular disease Normally functioning cardiac pacemaker present Acute kidney injury Generalized anxiety disorder Osteoarthritis of knees, bilateral Obstructive sleep apnea (adult) (pediatric) Preoperative cardiovascular examination DVT (deep venous thrombosis) Nasal polyp Asthma Nonrheumatic mitral valve regurgitation Cardiomyopathy Cerebral infarction due to embolism of unspecified cerebral artery PVC (premature ventricular contraction) Anxiety Allergic rhinitis Insomnia Congestive heart failure Gastroesophageal reflux disease Impaired glucose tolerance Congestive heart failure Lupus anticoagulant positive Paroxysmal atrial fibrillation Hypercholesterolemia Surgical History H/O hernia repair Ventral hernia Status post mitral valve repair History of cardiac radiofrequency ablation (~03/16/21) Status post arthroscopy of left knee History of cardioversion (~01/17/20) S/P medial meniscectomy of left knee History of arthroscopy of left knee Hx of repair of right rotator cuff History of tonsillectomy Family History Father HTN (hypertension) CVA (cerebral vascular accident) Mother Skin cancer Maternal Uncle Colon cancer Son No problems noted. Daughter No problems noted. Family/Other Breast cancer Paternal Uncle Colon cancer Social History Housing: House Are you a primary child care development specialist to a significant other at home: No Do you presently have visiting nurse or other home services: No Alcohol intake: never Patient Tobacco Use Status: Former Tobacco user Quit Date: Tobacco use type: Cigarette Years Smoked: 12 +/- e-Cigarette/Vaping Use: Never Used Second Hand Smoke Exposure: No Current occupational status: retired Cognitive needs: No Hearing needs: No Vision needs: No Office Procedures Cardiac Device Check Cardiac Device Check Details: Date of service- 06/21/2023 ; Battery life >12 years; normal lead parameters; AP 93%; SDC TEACHER <0.1%; brief NSVT. Overall normal device function. [id number] Cardiac Device Interrogation, pacemaker Procedure code (CPT) selection complete Assessment & Plan Assessment & Plan (1) Cardiomyopathy: Code(s): I42.9 - Cardiomyopathy, unspecified Qualifiers: Cardiomyopathy type: unspecified Qualified Code(s): I42.9 - Cardiomyopathy, unspecified Plan x Coding Level of Care Code Procedure Only Diagnoses Cardiomyopathy, unspecified type I42.9 Cardiomyopathy type: unspecified CPT Codes Cardiac Device Check - Cardiac Device 12: [id number] Cardiac Device Interrogation, pacemaker ([id number])
== END ==
PROVIDERS: PCP Internal Medicine; Visit Provider Internal Medicine
DX: I42.9 Cardiomyopathy, unspecified (principal); Z95.0 Presence of cardiac pacemaker
CPT/HCPCS: 93294

== ENCOUNTER → 2023-09-19 23:59 | Outpatient (BNV) | payer MEDICARE, SELFPAY ==
--- NOTE | 2023-09-21 20:41 | A.OFFVIS_ITS ---
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 Atherosclerotic cardiovascular disease Normally functioning cardiac pacemaker present Acute kidney injury Generalized anxiety disorder Osteoarthritis of knees, bilateral Obstructive sleep apnea (adult) (pediatric) Preoperative cardiovascular examination DVT (deep venous thrombosis) Nasal polyp Asthma Nonrheumatic mitral valve regurgitation Cardiomyopathy Cerebral infarction due to embolism of unspecified cerebral artery PVC (premature ventricular contraction) Anxiety Allergic rhinitis Insomnia Congestive heart failure Gastroesophageal reflux disease Impaired glucose tolerance Congestive heart failure Lupus anticoagulant positive Paroxysmal atrial fibrillation Hypercholesterolemia Surgical History H/O hernia repair Ventral hernia Status post mitral valve repair History of cardiac radiofrequency ablation (~03/16/21) Status post arthroscopy of left knee History of cardioversion (~01/17/20) S/P medial meniscectomy of left knee History of arthroscopy of left knee Hx of repair of right rotator cuff History of tonsillectomy Family History Father HTN (hypertension) CVA (cerebral vascular accident) Mother Skin cancer Maternal Uncle Colon cancer Son No problems noted. Daughter No problems noted. Family/Other Breast cancer Paternal Uncle Colon cancer Social History Housing: House Are you a primary patient centered care specialist to a significant other at home: No Do you presently have visiting nurse or other home services: No Alcohol intake: never Patient Tobacco Use Status: Former Tobacco user Quit Date: Tobacco use type: Cigarette Years Smoked: 12 +/- e-Cigarette/Vaping Use: Never Used Second Hand Smoke Exposure: No Current occupational status: retired Cognitive needs: No Hearing needs: No Vision needs: No Office Procedures Cardiac Device Check Cardiac Device Check Details: Date of service- 09/19/2023 ; Battery life >12 years; normal lead parameters; AP 0.1%; CARGO WORKER 83%; very brief NSVT. Overall normal device function. [id number] Cardiac Device Interrogation, pacemaker Procedure code (CPT) selection complete Assessment & Plan Assessment & Plan (1) Paroxysmal atrial fibrillation: Code(s): I48.0 - Paroxysmal atrial fibrillation Category: Medical Plan x Coding Level of Care Code Procedure Only Diagnoses Paroxysmal atrial fibrillation I48.0 CPT Codes Cardiac Device Check - Cardiac Device 12: [id number] Cardiac Device Interrogation, pacemaker ([id number])
== END ==
PROVIDERS: PCP Internal Medicine; Visit Provider Internal Medicine
DX: I48.0 Paroxysmal atrial fibrillation (principal); Z95.0 Presence of cardiac pacemaker
CPT/HCPCS: 93294

== ENCOUNTER 2023-10-25 09:46 | Outpatient (REF) | payer MEDICARE, SELFPAY ==
[2023-10-25 12:58] LABS: MANUAL DIFF FLAG NO
[2023-10-25 13:20] LABS: Basophils Percent Auto 0.5 % (0-2); Eosinophils Absolute Auto 0.3 X10*3/uL (0.0-0.4); Eosinophils Percent Auto 4.5 % (0-4); Hematocrit 40.8 % (42.0-52.0); Hemoglobin 12.9 g/dl (14.0-18.0); Imm Gran Abs Auto 0.01 X10*3/uL (0.00-0.03); Imm Gran Pct Auto 0.2 % (0.0-0.4); Immature Retic Fraction 13.7 % (2.3-13.4); Lymphocytes Absolute Auto 1.8 X10*3/uL (1.2-4.9); Lymphocytes Percent Auto 28.1 % (20-40); Mean Corpuscular HGB Conc 31.6 g/dl (31.0-36.0); Mean Corpuscular Hemoglobin 29.7 pg (27.0-33.0); Mean Corpuscular Volume 93.8 fL (80.0-98.0); Mean Platelet Volume 9.8 fL (9.4-12.4); Monocytes Absolute Auto 0.6 X10*3/uL (0.1-1.2); Monocytes Percent Auto 9.2 % (2-11); Neutrophils Absolute Auto 3.6 x10*3/uL (2.0-8.3); Neutrophils Percent Auto 57.5 % (45-73); Platelet Count 256 X10*3/uL (160-400); Red Blood Count 4.35 X10*6/uL (4.60-5.80); Red Cell Distribution Width 14.2 % (11.0-16.0); Retic HGB Equivalent 35.6 pg (30.0-35.0); Reticulocyte Percent 1.1 % (0.5-1.8); Reticulocytes Absolute 0.049 X10*6/uL (0.026-0.095); White Blood Count 6.3 X10*3/uL (4.8-10.8)
[2023-10-25 13:45] LABS: Alanine Aminotransferase 18 U/L (0-40); Albumin Level 4.1 g/dL (3.5-5.0); Alkaline Phosphatase 93 U/L (39-117); Anion Gap 14 (12-20); Aspartate Amino Transferase 19 U/L (5-37); Bilirubin Total 0.3 mg/dL (0.0-1.0); Blood Urea Nitrogen 45 mg/dL (9-16); Calcium 9.8 mg/dL (8.4-10.2); Carbon Dioxide 21 mmol/L (22-29); Chloride 111 mmol/L (96-108); Estimated Glomerular Filt Rate 30; Glucose Random 101 mg/dL (60-115); Iron 36 mcg/dL (45-160); Percent Iron Saturation 11 % (15-50); Potassium 4.8 mmol/L (3.3-5.1); Sodium 141 mmol/L (135-145); Total Iron Binding Capacity 328 mcg/dL (228-428); Total Protein 7.2 g/dL (6.5-8.0); Unsaturated Iron Binding 292 ug/dL
[2023-10-25 14:02] LABS: Folate > 20.0 ng/mL (> or = 4.0); Vitamin B12 423 pg/mL (200-900)
[2023-10-25 14:04] LABS: Ferritin 46 ng/mL (20-250)
== END 2023-10-25 09:47 | disposition home or self-care (01) ==
LOC: HO.HMGCLDS 09:46
PROVIDERS: PCP Internal Medicine; Visit Provider Internal Medicine
DX: N18.9 Chronic kidney disease, unspecified (principal)
CPT/HCPCS: 36415; 80053; 82607; 82728; 82746; 83540; 85025; 85045

== ENCOUNTER 2023-10-31 14:04 | Outpatient (REF) | payer MEDICARE, SELFPAY ==
[2023-10-31 16:30] LABS: Cholesterol 182 mg/dL (<200); HDL Cholesterol 86 mg/dL (>40); LDL Cholesterol Calculated 88 mg/dL (<100); Triglycerides 41 mg/dL (<150)
== END 2023-10-31 14:05 | disposition home or self-care (01) ==
LOC: HO.HMGCLDS 14:04
PROVIDERS: PCP Internal Medicine; Visit Provider Internal Medicine
DX: I25.10 Atherosclerotic heart disease of native coronary artery without angina pectoris (principal); E78.00 Pure hypercholesterolemia, unspecified
CPT/HCPCS: 36415; 80061

== ENCOUNTER 2023-11-08 12:56 | Outpatient (AMB) | payer MEDICARE, SELFPAY ==
[2023-11-08 13:00] VITALS: BP 116/78; PULSE 62; O2SAT 97; BMI 26.1
--- NOTE | 2023-11-08 13:00 | MHC.OFFVIS ---
Vital Signs 11/08/23 13:00 Height 6 ft 2 in Weight 203 lb BMI 26.1 BP 116/78 Blood Pressure Location Rt brachial Position Sitting Pulse 62 Pulse Source Pulse Oximeter Pulse Oximetry (%) 97 Oxygen Delivery Method Room Air Intake Visit Reasons: 1 yr follow up for sleep-LVM Intake Note: Patient presents for 1 year follow up sleep. everything is ok Allergies gabapentin Allergy (Severe, Verified 11/08/23 13:04) Dizziness atorvastatin Allergy (Intermediate, Verified 11/08/23 13:04) Muscle cramps rosuvastatin Allergy (Intermediate, Verified 11/08/23 13:04) Muscle cramps Sulfa (Sulfonamide Antibiotics) [SULFA(SULFONAMIDE ANTIBIOTICS)] Allergy (Mild, Verified 11/08/23 13:04) RASH metoprolol Adverse Reaction (Severe, Verified 11/08/23 13:04) Chest Pain, sob, dizziness amoxicillin Adverse Reaction (Mild, Verified 11/08/23 13:04) Rash Medication List - Last Reconciled 11/08/23 by YUMIKO Penny albuterol sulfate 90 mcg/actuation (ProAir HFA) 2 puffs inhalation Q4H PRN APAP Machine/Device As directed ascorbic acid (vitamin C) 1 g PO BID aspirin 81 mg PO DAILY benzonatate 100 mg PO BID-TID PRN carvedilol (Coreg) 3.125 mg PO BID 90 days cholecalciferol (vitamin D3) 25 mcg PO DAILY comp.stocking,thigh,long,large As directed 20-30 mm HG, black ezetimibe-simvastatin 10-10 mg 1 tab PO DAILY sodium chloride 0.65% (Saline Nasal) 2 sprays intranasal QID PRN zolpidem 10 mg PO BEDTIME PRN 90 days HPI Comments Details: 73-yr-old male presents for follow-up visit of sleep apnea. Pt was previously seen by Nate Christine NP. Pt denies any significant interval medical history changes. Pt continues to use his CPAP nightly. His residual AHI is 1.5/hr. He does sleep well with the CPAP, but does feel it causes dry mouth at times and the pressure is too strong at times. He has not had new PAP supplies in > 1 yr- notes his mask attachments are wearing down. He is curious if he still needs to use the CPAP. Wonders about mandibular devices. He states he is only taking ASA for his paroxysmal a-fib. 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 Atherosclerotic cardiovascular disease Normally functioning cardiac pacemaker present Acute kidney injury Generalized anxiety disorder Osteoarthritis of knees, bilateral Obstructive sleep apnea (adult) (pediatric) Preoperative cardiovascular examination DVT (deep venous thrombosis) Nasal polyp Asthma Nonrheumatic mitral valve regurgitation Cardiomyopathy Cerebral infarction due to embolism of unspecified cerebral artery PVC (premature ventricular contraction) Anxiety Allergic rhinitis Insomnia Congestive heart failure Gastroesophageal reflux disease Impaired glucose tolerance Congestive heart failure Lupus anticoagulant positive Paroxysmal atrial fibrillation Hypercholesterolemia Surgical History H/O hernia repair Ventral hernia Status post mitral valve repair History of cardiac radiofrequency ablation (~03/16/21) Status post arthroscopy of left knee History of cardioversion (~01/17/20) S/P medial meniscectomy of left knee History of arthroscopy of left knee Hx of repair of right rotator cuff History of tonsillectomy Family History Father HTN (hypertension) CVA (cerebral vascular accident) Mother Skin cancer Maternal Uncle Colon cancer Son No problems noted. Daughter No problems noted. Family/Other Breast cancer Paternal Uncle Colon cancer Social History Housing: House Are you a primary director of healthcare systems to a significant other at home: No Do you presently have visiting nurse or other home services: No Alcohol intake: never Patient Tobacco Use Status: Former Tobacco user Tobacco use type: Cigarette Years Smoked: 12 +/- e-Cigarette/Vaping Use: Never Used Second Hand Smoke Exposure: No Current occupational status: retired Cognitive needs: No Hearing needs: No Vision needs: No Review of Systems Const All systems reviewed & are unremarkable except as noted in HPI and below Physical Exam Vital Signs: Last Vital Signs Pulse 62 11/08/23 13:00 BP 116/78 11/08/23 13:00 Pulse Ox 97 11/08/23 13:00 Oxygen Delivery Method Room Air 11/08/23 13:00 BMI result Body Mass Index 26.1 Const General: no acute distress Orientation/consciousness: patient oriented x3 HEENT Other: Mallampati stage Resp Effort & Inspection: normal respiratory effort and able to speak in complete sentences Auscultation: clear to auscultation bilaterally Cardio Rate: regular rate Rhythm: regular rhythm Neuro General: patient oriented x3 Psych Mental Status: mental status grossly normal Speech and movement: Clear speech present Attitude: cooperative Results Reviewed Results Reviewed: PAP compliance report- see HPI Assessment & Plan Assessment & Plan (1) KAREN on CPAP: Code(s): G47.33 - Obstructive sleep apnea (adult) (pediatric); Z99.89 - Dependence on other enabling machines and devices Category: Medical Plan Reviewed previous HST- AHI 6/hr. Discussed w/ pt that as he continues to have bouts of arrhythmias per recent cardiology notes, even though his KAREN is mild, I would continue to use his PAP machine to tx his sleep apnea as part of his overall plan to optimize his CV risk factors. Could conisder mandibular device tx in place of APAP, however discussed cost is usually not covered by insurance. If he decided to pursue this, we would do a f/u sleep study w/ mandibular device to confirm effectiveness. He will consider. Continue APAP, however will decrease APAP pressure from 4-96rmM0W to 4-15 cmH2O nightly > 4 hours (new order written), in hopes this improves PAP tolerance. Pt may benefit from trialing OTC Xylimelts 1-2 tab to gumline- for dry mouth. Will request refill of PAP supplies. Clean CPAP machine and supplies routinely. Change CPAP supplies routinely. Pt to contact us or respiratory company with any questions or concerns. Coding Level of Care Code Est Pt Level 3 (91382) Diagnoses KAREN on CPAP G47.33; Z99.89
== END 2023-11-08 13:48 | disposition home or self-care (01) ==
PROVIDERS: PCP Internal Medicine; Visit Provider Nurse Practitioner Family
DX: G47.33 Obstructive sleep apnea (adult) (pediatric) (principal); Z99.89 Dependence on other enabling machines and devices
CPT/HCPCS: 99213

== ENCOUNTER → 2023-11-08 12:56 | Outpatient (BNVA) | payer MEDICARE, SELFPAY | PROVIDERS: PCP Internal Medicine; Visit Provider Nurse Practitioner Family | DX: G47.33 Obstructive sleep apnea (adult) (pediatric) (principal); Z99.89 Dependence on other enabling machines and devices | CPT/HCPCS: 99212 ==

== ENCOUNTER 2023-11-16 13:09 | Outpatient (REF) | payer MEDICARE, SELFPAY ==
[2023-11-16 16:24] LABS: MANUAL DIFF FLAG NO
[2023-11-16 16:29] LABS: Basophils Percent Auto 0.5 % (0-2); Eosinophils Absolute Auto 0.4 X10*3/uL (0.0-0.4); Eosinophils Percent Auto 6.5 % (0-4); Hematocrit 41.3 % (42.0-52.0); Hemoglobin 13.4 g/dl (14.0-18.0); Imm Gran Abs Auto 0.02 X10*3/uL (0.00-0.03); Imm Gran Pct Auto 0.3 % (0.0-0.4); Lymphocytes Percent Auto 34.9 % (20-40); Mean Corpuscular HGB Conc 32.4 g/dl (31.0-36.0); Mean Corpuscular Hemoglobin 29.8 pg (27.0-33.0); Mean Corpuscular Volume 91.8 fL (80.0-98.0); Mean Platelet Volume 9.6 fL (9.4-12.4); Monocytes Absolute Auto 0.6 X10*3/uL (0.1-1.2); Monocytes Percent Auto 9.9 % (2-11); Neutrophils Absolute Auto 2.8 x10*3/uL (2.0-8.3); Neutrophils Percent Auto 47.9 % (45-73); Platelet Count 261 X10*3/uL (160-400); Red Cell Distribution Width 14.2 % (11.0-16.0); White Blood Count 5.9 X10*3/uL (4.8-10.8)
[2023-11-16 16:51] LABS: Anion Gap 17 (12-20); Blood Urea Nitrogen 47 mg/dL (9-16); Calcium 9.6 mg/dL (8.4-10.2); Carbon Dioxide 21 mmol/L (22-29); Chloride 109 mmol/L (96-108); Estimated Glomerular Filt Rate 27; Potassium 5.2 mmol/L (3.3-5.1); Sodium 142 mmol/L (135-145)
== END 2023-11-16 13:10 | disposition home or self-care (01) ==
LOC: HO.HMGCLDS 13:09
PROVIDERS: PCP Internal Medicine; Visit Provider Internal Medicine Nephrology
DX: N18.4 Chronic kidney disease, stage 4 (severe) (principal)
CPT/HCPCS: 36415; 80051; 82310; 82565; 84520; 85025

== ENCOUNTER 2023-11-23 13:28 | Outpatient (AMB) | payer MEDICARE, SELFPAY ==
[2023-11-23 13:32] VITALS: BP 120/62; PULSE 73; O2SAT 97; BMI 25.5
--- NOTE | 2023-11-23 13:32 | HO.NEPHOV_ITS ---
Vital Signs 11/23/23 13:32 Height 6 ft 2 in Weight 199 lb BMI 25.5 BP 120/62 Blood Pressure Location Lt brachial Position Sitting Pulse 73 Pulse Source Pulse Oximeter Pulse Oximetry (%) 97 Oxygen Delivery Method Room Air Intake Visit Reasons: Previous patient/ lvm Director Of Cardiopulmonary Services Required: No Accompanied by: Self / Same As Patient Allergies gabapentin Allergy (Severe, Verified 11/23/23 13:34) Dizziness atorvastatin Allergy (Intermediate, Verified 11/23/23 13:34) Muscle cramps rosuvastatin Allergy (Intermediate, Verified 11/23/23 13:34) Muscle cramps Sulfa (Sulfonamide Antibiotics) [SULFA(SULFONAMIDE ANTIBIOTICS)] Allergy (Mild, Verified 11/23/23 13:34) RASH metoprolol Adverse Reaction (Severe, Verified 11/23/23 13:34) Chest Pain, sob, dizziness amoxicillin Adverse Reaction (Mild, Verified 11/23/23 13:34) Rash Medication List - Last Reconciled 11/23/23 by Denis Villa MD albuterol sulfate 90 mcg/actuation (ProAir HFA) 2 puffs inhalation Q4H PRN APAP Machine/Device As directed ascorbic acid (vitamin C) 1 g PO BID aspirin 81 mg PO DAILY cholecalciferol (vitamin D3) 25 mcg PO DAILY comp.stocking,thigh,long,large As directed 20-30 mm HG, black ezetimibe-simvastatin 10-10 mg 1 tab PO DAILY sodium chloride 0.65% (Saline Nasal) 2 sprays intranasal QID PRN zolpidem 10 mg PO BEDTIME PRN 90 days HPI Comments Details: Osman is a 71-year-old man with a history of paroxysmal atrial fibrillation status post failed ablation. History of DVT/lupus anticoagulant positivity and he is on Eliquis. History of type 2 diabetes mellitus non rheumatic mitral valve disease. He has underlying CKD with a baseline creatinine somewhere around 2 mg/dL. He is a history of congestive heart failure secondary to severe MVR underwent mitral valve annuloplasty full Maze and left atrial appendage amputation with postop course complicated by mediastinal exploration and evacuation of hematoma. During this process he sustained acute kidney injury with a creatinine peaking at 3.5 mg/dL. During routine imaging he was found to have right-sided hydronephrosis. He is aware of this but no intervention was made at the time. This was back in 2021 He is here for follow-up regarding chronic kidney disease. He has noticed a thin stream during urination. No dysuria urgency increased frequency. No urgency no hesitation. At present he has no shortness of breath no nausea vomiting. No rash no edema. 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 Atherosclerotic cardiovascular disease Normally functioning cardiac pacemaker present Acute kidney injury Generalized anxiety disorder Osteoarthritis of knees, bilateral Obstructive sleep apnea (adult) (pediatric) Preoperative cardiovascular examination DVT (deep venous thrombosis) Nasal polyp Asthma Nonrheumatic mitral valve regurgitation Cardiomyopathy Cerebral infarction due to embolism of unspecified cerebral artery PVC (premature ventricular contraction) Anxiety Allergic rhinitis Insomnia Congestive heart failure Gastroesophageal reflux disease Impaired glucose tolerance Congestive heart failure Lupus anticoagulant positive Paroxysmal atrial fibrillation Hypercholesterolemia Surgical History H/O hernia repair Ventral hernia Status post mitral valve repair History of cardiac radiofrequency ablation (~03/16/21) Status post arthroscopy of left knee History of cardioversion (~01/17/20) S/P medial meniscectomy of left knee History of arthroscopy of left knee Hx of repair of right rotator cuff History of tonsillectomy Family History Father HTN (hypertension) CVA (cerebral vascular accident) Mother Skin cancer Maternal Uncle Colon cancer Son No problems noted. Daughter No problems noted. Family/Other Breast cancer Paternal Uncle Colon cancer Social History Housing: House Are you a primary medical care evaluation specialist to a significant other at home: No Do you presently have visiting nurse or other home services: No Alcohol intake: never Patient Tobacco Use Status: Former Tobacco user Tobacco use type: Cigarette Years Smoked: 12 +/- e-Cigarette/Vaping Use: Never Used Second Hand Smoke Exposure: No Current occupational status: retired Cognitive needs: No Hearing needs: No Vision needs: No Physical Exam Vital Signs: Last Vital Signs Pulse 73 11/23/23 13:32 BP 120/62 11/23/23 13:32 Pulse Ox 97 11/23/23 13:32 Oxygen Delivery Method Room Air 11/23/23 13:32 BMI result Body Mass Index 25.5 Const General: comfortable; No acute distress Orientation/consciousness: patient oriented x3 Eyes General: appearance normal, both eyes and all related structures Visual Hannon: normal visual hannon by confrontation Neck Neck: Yes supple and Yes no JVD Resp Effort & Inspection: normal respiratory effort and respiratory effort not decreased Auscultation: rhonchi Cardio Palpation: no palpable S3 and no palpable S4 Heart sounds: no rubs GI Inspection: Yes normal to inspection Palpation (GI): Soft to palpation Percussion: Yes normal to percussion Auscultation: normal bowel sounds General: Yes no CVA tenderness Back/Spine/Pelvis Back: no CVA tenderness Skin General skin exam: no petechiae and no purpura Neuro General: patient oriented x3 and no focal motor deficits Extrem General: No clubbing and No edema Results Reviewed Nephrology Results: Hgb 13.4 g/dl (14.0-18.0) L 11/16/23 WBC 5.9 X10*3/uL (4.8-10.8) 11/16/23 Plt Count 261 X10*3/uL (160-400) 11/16/23 Sodium 142 mmol/L (135-145) 11/16/23 Potassium 5.2 mmol/L (3.3-5.1) H 11/16/23 Chloride 109 mmol/L (96-108) H 11/16/23 Carbon Dioxide 21 mmol/L (22-29) L 11/16/23 BUN 47 mg/dL (9-16) H 11/16/23 Creatinine 2.36 mg/dL (0.5-1.4) H 11/16/23 Calcium 9.6 mg/dL (8.4-10.2) 11/16/23 Assessment & Plan Assessment & Plan (1) CKD (chronic kidney disease) stage 4, GFR 15-29 ml/min: Code(s): N18.4 - Chronic kidney disease, stage 4 (severe) Category: Medical Plan Osman has chronic kidney disease with a baseline creatinine of around 2.0 mg/dL. He has sustained acute kidney injury 2 years ago during hospitalization which resolved. Plan Obtain renal ultrasonogram. If he has ongoing hydronephrosis we will refer to Urology. The meantime continue to avoid nephrotoxic agents. Optimize blood pressure Keep intake more than output. Stay on low-potassium diet in view of mild hyperkalemia. If potassium stays above 5.5 ,I will add Lokelma. Orders: Orders US renal BI Today N18.4 - Chronic kidney disease, stage 4 (severe) Basic Metabolic Panel 4 Weeks N18.4 - Chronic kidney disease, stage 4 (severe) Coding Level of Care Code Est Pt Level 4 (50537) Diagnoses CKD (chronic kidney disease) stage 4, GFR 15-29 ml/min N18.4
== END 2023-11-23 13:55 | disposition home or self-care (01) ==
PROVIDERS: PCP Internal Medicine; Visit Provider Internal Medicine Hypertension Specialist
DX: N18.4 Chronic kidney disease, stage 4 (severe) (principal)
CPT/HCPCS: 99214

== ENCOUNTER → 2023-11-23 13:28 | Outpatient (BNVA) | payer MEDICARE, SELFPAY | PROVIDERS: PCP Internal Medicine; Visit Provider Internal Medicine Hypertension Specialist | DX: N18.4 Chronic kidney disease, stage 4 (severe) (principal) | CPT/HCPCS: 99212 ==

== ENCOUNTER → 2023-11-29 13:01 | Outpatient (REF) | payer MEDICARE, SELFPAY ==
--- NOTE | 2023-11-29 13:04 | CA_ITS ---
Transthoracic Echocardiogram Patient (Last, First, Middle): Eliazar Quispe F Gender: Male Date of : 1950 Age: 73 Procedure Date: 11/29/2023 Procedure Type: Transthoracic Echocardiogram Location: OP Height: 187.96 cm Weight: 86.18 kg BSA: 2.13 m2 Heart Rate: bpm BP: 118 / 66 mmHg Test Director: TO Referring MD: Jaylen Amin MD Research Leader: Mihai Malloy MD Symptoms: Z98.890 - Other specified postprocedural states Study Quality: Adequate ECG Rhythm: Sinus Conclusions: - 1. Normal LV ejection fraction of 55-60% 2. [id number] mitral regurgitation with known prior mitral valve repair 3. Mildly dilated ascending aorta at 4 cm 4. No gross pericardial effusion Findings Left Ventricle Normal left ventricular size, thickness, and systolic function. The visually estimated ejection fraction is between 55-60%. Diastolic function is indeterminate on the basis of available data. mild focal basal septal hypertrophy noted Right Ventricle Mildly increased right ventricular cavity size. There is mildly decreased right ventricular systolic function. There is a pacemaker wire seen in the right ventricle. Atria The left atrium is likely dilated. There is no evidence of interatrial shunt. The right atrium is likely dilated. A pacemaker wire is identified in the right atrium. Aortic Valve There is mild thickening of the aortic valve. There is no aortic valve stenosis. There is no aortic valve regurgitation. Mitral Valve There is mild anterior and severe posterior mitral leaflet thickening. There is moderate mitral annular calcification. There is mild to moderate mitral valve regurgitation. There is no mitral valve stenosis. posterior leaflet thickness could be related to resection and repair. Pulmonic Valve The pulmonic valve is likely normal. Tricuspid Valve Normal tricuspid valve structure. There is mild tricuspid valve regurgitation. Mildly elevated right atrial pressure. There is no evidence of pulmonary hypertension. Great Vessels The pulmonary artery was not well visualized. There is mild dilatation of the ascending aorta measuring 4.00 cm. Small plaque is seen in the sino tubular ridge. Venous The inferior vena cava is mildly dilated and collapses greater than 50% with inspiration. Pericardium/Pleural There is no evidence of pericardial effusion. Prior Study Comparison No significant change compared to prior study dated: 12/16/2022. Measurements 2D Linear Measurements IVSd: 1.23 0.6-0.9/0.6-1.0 cm LVIDd: 4.89 3.9-5.3/4.2-5.9 cm LVIDd Index: 2.30 2.4-3.2/2.2-3.1 cm/m2 LVIDs: 3.09 2.0-3.6 cm LVPWd: 1.00 0.7-1.1 cm LA Diam: 3.90 2.7-3.8/3.0-4.0 cm LAIDs Index: 1.83 1.5-2.3 cm/m2 LV Mass: 253.77 67-162/88-224 g LV Mass Index: 119.14 43-95/49-115 g/m2 LVOT Diam: 2.40 3.0+(-)1.3 cm 2D Systolic Function EF 4C: 53.00 >55% EF 2C: 58.10 >55% EF BiP: 56.20 >55% Mitral Valve MV VTI: 0.49 MV Pk Nura: 1.60 MV Mn Nura: 0.81 MV Pk Grad: 10.00 MV Mn Grad: 3.00 MV Pk E: 1.36 MV PK A: 0.29 MV Decel Time: 350.00 E/A: 4.80 E'Lateral: 6.85 E'Medial: 4.13 E/E' Med: 32.90 E/E' Lat: 19.90 PHT: 102.00 MVA PHT: 2.16 MVA Continuity: 1.72 Decel [place]: 3.90 MR Vol - PW Dopp: 17.93 MR VTI: 1.63 MR ERO: 11.00 MR Alias Nura: 0.37 MR RAD: 0.50 Aortic Valve AoV Pk Nura: 1.54 AoV Mn Nura: 1.08 AoV VTI: 0.32 AoV Pk Grad: 9.00 Aov Mn Grad: 5.00 DELIA Cont.VTI: 2.67 LVOT LVOT Pk Nura: 0.81 LVOT Mn Nura: 0.58 LVOT VTI: 0.19 LVOT Pk Grad: 3.00 LVOT Mn Grad: 2.00 LVOT Diam: 2.40 LVOT Area: 4.52 Diastolic Function MV Pk E: 1.36 MV Pk A: 0.29 E/A: 4.80 E'Medial: 4.13 E/E' Med: 32.90 E' Laterial: 6.85 E/E' Lat: 19.90 Right Ventricle TAPSE (mm): 16.50 TVS' Nura: 8.59 Tricuspid Valve TR Pk Nura: 2.71 TR Pk Grad: 29.00 RA Press: 8.00 RVSP: 37.00 Great Vessels Aorta Sinus of Valsalva: 3.85 2.0-3.5 cm Ao Asc: 4.00 2.1-3.4 cm Updated in Other Vendor System with Status of Final Mihai Malloy MD electronically signed on 11/30/2023 3:18:00 PM with status of Final
== END ==
LOC: HO.CARD 13:01
PROVIDERS: PCP Internal Medicine; Visit Provider Internal Medicine
DX: Z98.890 Other specified postprocedural states (principal)
CPT/HCPCS: 93306

== ENCOUNTER → 2023-11-29 13:04 | Outpatient (BNV) | payer MEDICARE, SELFPAY | PROVIDERS: PCP Internal Medicine; Visit Provider Internal Medicine Cardiovascular Disease | DX: I34.0 Nonrheumatic mitral (valve) insufficiency (principal); Z98.890 Other specified postprocedural states; I36.1 Nonrheumatic tricuspid (valve) insufficiency; I42.2 Other hypertrophic cardiomyopathy | CPT/HCPCS: 93306 ==

== ENCOUNTER 2023-12-01 15:19 | Outpatient (REF) | payer MEDICARE, SELFPAY ==
--- NOTE | ~2023-12-01 | US_ITS ---
EXAMINATION: US RETROPERITONEAL LIMITED (RENAL ONLY) CLINICAL INFORMATION: Chronic kidney disease, stage IV. COMPARISON: None available. TECHNIQUE: Real-time imaging of the kidneys. FINDINGS: RIGHT KIDNEY: 12.2 x 4 x 9.8 cm (SAG x AP x TRV). The kidney is normal in size, contour, and echogenicity. Renal cortical thickness is normal. No calculi or focal parenchymal lesions. There is marked hydronephrosis. LEFT KIDNEY: 12.0 x 5.4 x 5.4 cm (SAG x AP x TRV). The kidney is normal in size, contour, and echogenicity. Renal cortical thickness is normal. No calculi or focal parenchymal lesions. No hydronephrosis. At the lower pole, a 1.1 cm benign, simple cyst is seen, for which no imaging follow-up is recommended. OTHER: Bilateral ureteric jets are not identified US/US renal BI IMPRESSION: There is marked right hydronephrosis. No left hydronephrosis is seen. There is no renal mass or calculus seen bilaterally.
== END 2023-12-01 15:20 | disposition home or self-care (01) ==
LOC: HO.HMGCX 15:19
PROVIDERS: PCP Internal Medicine; Visit Provider Internal Medicine Hypertension Specialist
DX: N18.4 Chronic kidney disease, stage 4 (severe) (principal)
CPT/HCPCS: 76775

== ENCOUNTER 2023-12-08 13:23 | Outpatient (AMB) | payer MEDICARE, SELFPAY ==
--- NOTE | 2023-12-08 13:41 | MHC.OFFVIS ---
Vital Signs 12/08/23 13:43 Height 6 ft 2 in Weight 197 lb 1.492 oz BMI 25.3 BP 128/74 Blood Pressure Location Lt brachial Position Sitting Pulse 78 Pulse Source Pulse Oximeter Intake Visit Reasons: 6 mht fu after echo Order Department Supervisor Required: No Accompanied by: Self / Same As Patient Allergies gabapentin Allergy (Severe, Verified 11/23/23 13:34) Dizziness atorvastatin Allergy (Intermediate, Verified 11/23/23 13:34) Muscle cramps rosuvastatin Allergy (Intermediate, Verified 11/23/23 13:34) Muscle cramps Sulfa (Sulfonamide Antibiotics) [SULFA(SULFONAMIDE ANTIBIOTICS)] Allergy (Mild, Verified 11/23/23 13:34) RASH metoprolol Adverse Reaction (Severe, Verified 11/23/23 13:34) Chest Pain, sob, dizziness amoxicillin Adverse Reaction (Mild, Verified 11/23/23 13:34) Rash Medication List - Last Reconciled 12/08/23 by Jaylen Amin MD albuterol sulfate 90 mcg/actuation (ProAir HFA) 2 puffs inhalation Q4H PRN APAP Machine/Device As directed ascorbic acid (vitamin C) 1 g PO BID aspirin 81 mg PO DAILY cholecalciferol (vitamin D3) 25 mcg PO DAILY comp.stocking,thigh,long,large As directed 20-30 mm HG, black ezetimibe-simvastatin 10-10 mg 1 tab PO DAILY sodium chloride 0.65% (Saline Nasal) 2 sprays intranasal QID PRN zolpidem 10 mg PO BEDTIME PRN 90 days HPI Comments Details: Eliazar returns for follow-up regarding various cardiac issues including mitral regurgitation, atrial fibrillation, atypical flutter, PVCs among others. In the past, he underwent atrial fibrillation, atypical flutter ablation as well as PVC ablation. In 2021, diagnosed with severe mitral regurgitation. Admitted to [facility] with acute heart failure that led to cardiac catheterization and then mitral valve surgery. Also underwent pacemaker implantation. Overall, it seems that he is doing fine. No complaints like angina or shortness of breath or in fact anything else cardiac sounding. He states he can walk as much as 5 miles a day few times a week with no issues. 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 Atherosclerotic cardiovascular disease Normally functioning cardiac pacemaker present Acute kidney injury Generalized anxiety disorder Osteoarthritis of knees, bilateral Obstructive sleep apnea (adult) (pediatric) Preoperative cardiovascular examination DVT (deep venous thrombosis) Nasal polyp Asthma Nonrheumatic mitral valve regurgitation Cardiomyopathy Cerebral infarction due to embolism of unspecified cerebral artery PVC (premature ventricular contraction) Anxiety Allergic rhinitis Insomnia Congestive heart failure Gastroesophageal reflux disease Impaired glucose tolerance Congestive heart failure Lupus anticoagulant positive Paroxysmal atrial fibrillation Hypercholesterolemia Surgical History H/O hernia repair Ventral hernia Status post mitral valve repair History of cardiac radiofrequency ablation (~03/16/21) Status post arthroscopy of left knee History of cardioversion (~01/17/20) S/P medial meniscectomy of left knee History of arthroscopy of left knee Hx of repair of right rotator cuff History of tonsillectomy Family History Father HTN (hypertension) CVA (cerebral vascular accident) Mother Skin cancer Maternal Uncle Colon cancer Son No problems noted. Daughter No problems noted. Family/Other Breast cancer Paternal Uncle Colon cancer Social History Housing: House Are you a primary home day care provider to a significant other at home: No Do you presently have visiting nurse or other home services: No Alcohol intake: never Patient Tobacco Use Status: Former Tobacco user Tobacco use type: Cigarette Years Smoked: 12 +/- e-Cigarette/Vaping Use: Never Used Second Hand Smoke Exposure: No Current occupational status: retired Cognitive needs: No Hearing needs: No Vision needs: No Review of Systems Const Denies chills, Denies fatigue, Denies fever(s), Denies weight gain and Denies weight loss ENT Denies dizziness Card Denies chest pain, Denies leg edema, Denies lightheadedness, Denies palpitations, Denies dyspnea on exertion, Denies orthopnea and Denies other Resp Denies cough and Denies dyspnea on exertion GI Denies hematochezia and Denies change in stool character Musc Denies abnormal gait, Denies muscle weakness, Denies numbness, Denies radiating pain into limb and Denies tingling Neuro Denies abnormal gait, Denies dizziness, Denies numbness and Denies tingling Endo Denies fatigue and Denies palpitations Physical Exam Vital Signs: Last Vital Signs Pulse 78 12/08/23 13:43 BP 128/74 12/08/23 13:43 BMI result Body Mass Index 25.3 Const General: comfortable and no acute distress Orientation/consciousness: patient oriented x3 HEENT Other: Unremarkable Head: Yes normal to inspection Neck Neck: Yes normal visual inspection Chest Chest palpation & inspection: normal inspection of the chest Resp Auscultation: clear to auscultation bilaterally Cardio Palpation: normal PMI Heart sounds: S1 normal heart sound present, S2 normal heart sound present, no gallops, Murmur heart sound present systolic II/ and at the apex and no rubs GI Palpation (GI): Soft to palpation Back/Spine/Pelvis Other: unremarkable Skin General skin exam: no rashes or lesions noted Neuro General: patient oriented x3 Extrem General: Yes normal to inspection Psych Mental Status: mental status grossly normal Assessment & Plan Assessment & Plan (1) Status post mitral valve repair: Comment: October 2021 Code(s): Z98.890 - Other specified postprocedural states Category: Surgical Plan: Status post mitral valve annuloplasty. In the recent echocardiogram from this month, [id number] regurgitation. Can be followed periodically. Infective endocarditis prophylaxis protocol. (2) Cardiomyopathy: Code(s): I42.9 - Cardiomyopathy, unspecified Category: Medical Qualifiers: Cardiomyopathy type: unspecified Qualified Code(s): I42.9 - Cardiomyopathy, unspecified Plan: He has had variable EFs at different times. Most recent in the normal range. Clinically, no congestive heart failure. Used to be on Coreg but not anymore because of low blood pressure. (3) Atherosclerotic cardiovascular disease: Code(s): I25.10 - Atherosclerotic heart disease of [place] coronary artery without angina pectoris Category: Medical Plan: Cardiac catheterization reviewed. There was 65% stenosis in the proximal part of 1st obtuse marginal. Otherwise unremarkable. Continue aspirin. He has a history of statin intolerance. Currently he is on a small dose of Zetia/simvastatin combination. Lipids are reasonable. (4) Paroxysmal atrial fibrillation: Code(s): I48.0 - Paroxysmal atrial fibrillation Category: Medical Plan: Prior history of atrial fibrillation as well as atypical flutter and has undergone ablation for the same. He is also status post Maze procedure. Left atrial appendage amputation. History of intolerance to several antiarrhythmics. Off anticoagulation per his EP. (5) PVC (premature ventricular contraction): Code(s): I49.3 - Ventricular premature depolarization Category: Medical Plan: Status post ablation. In the last Holter from 03/2022, PVC burden was only 0.6%. (6) Normally functioning cardiac pacemaker present: Code(s): Z95.0 - Presence of cardiac pacemaker Category: Medical Plan: As he is regularly following with EP, advised him to switch over remote pacemaker care as well. He agrees. (7) CKD (chronic kidney disease): Code(s): N18.9 - Chronic kidney disease, unspecified Category: Medical Plan: Most recent creatinine is 2.36. Active nephrology follow-up. Coding Level of Care Code Est Pt Level 4 (67725) Diagnoses Status post mitral valve repair Z98.890 Cardiomyopathy, unspecified type I42.9 Cardiomyopathy type: unspecified Atherosclerotic cardiovascular disease I25.10 Paroxysmal atrial fibrillation I48.0 PVC (premature ventricular contraction) I49.3 Normally functioning cardiac pacemaker present Z95.0 CKD (chronic kidney disease) N18.9
[2023-12-08 13:43] VITALS: BP 128/74; PULSE 78; BMI 25.3
== END 2023-12-08 14:09 | disposition home or self-care (01) ==
PROVIDERS: PCP Internal Medicine; Visit Provider Internal Medicine
DX: Z98.890 Other specified postprocedural states (principal); I42.9 Cardiomyopathy, unspecified; I25.10 Atherosclerotic heart disease of native coronary artery without angina pectoris; I48.0 Paroxysmal atrial fibrillation; I49.3 Ventricular premature depolarization; Z95.0 Presence of cardiac pacemaker; N18.9 Chronic kidney disease, unspecified
CPT/HCPCS: 99214

== ENCOUNTER → 2023-12-08 13:23 | Outpatient (BNVA) | payer MEDICARE, SELFPAY | PROVIDERS: PCP Internal Medicine; Visit Provider Internal Medicine | DX: I25.10 Atherosclerotic heart disease of native coronary artery without angina pectoris (principal); I42.9 Cardiomyopathy, unspecified; I48.0 Paroxysmal atrial fibrillation; I49.3 Ventricular premature depolarization; N18.9 Chronic kidney disease, unspecified; Z79.82 Long term (current) use of aspirin; Z79.899 Other long term (current) drug therapy; Z95.0 Presence of cardiac pacemaker | CPT/HCPCS: 99212 ==

== ENCOUNTER 2023-12-15 11:02 | Outpatient (AMB) | payer MEDICARE, SELFPAY ==
--- NOTE | 2023-12-15 11:02 | HO.NEPHOV ---
Vital Signs 12/15/23 11:03 12/15/23 11:14 Height 6 ft 2 in Weight 196 lb BMI 25.2 BP 146/74 H 120/80 Blood Pressure Location Rt brachial Rt brachial Position Sitting Sitting Pulse 79 Pulse Source Pulse Oximeter Pulse Oximetry (%) 98 Oxygen Delivery Method Room Air Intake Visit Reasons: 6 wks follow up/ Conf Wildlife Protector Required: No Accompanied by: Self / Same As Patient Allergies gabapentin Allergy (Severe, Verified 12/15/23 11:04) Dizziness atorvastatin Allergy (Intermediate, Verified 12/15/23 11:04) Muscle cramps rosuvastatin Allergy (Intermediate, Verified 12/15/23 11:04) Muscle cramps Sulfa (Sulfonamide Antibiotics) [SULFA(SULFONAMIDE ANTIBIOTICS)] Allergy (Mild, Verified 12/15/23 11:04) RASH metoprolol Adverse Reaction (Severe, Verified 12/15/23 11:04) Chest Pain, sob, dizziness amoxicillin Adverse Reaction (Mild, Verified 12/15/23 11:04) Rash Medication List - Last Reconciled 12/15/23 by Denis Villa MD albuterol sulfate 90 mcg/actuation (ProAir HFA) 2 puffs inhalation Q4H PRN APAP Machine/Device As directed ascorbic acid (vitamin C) 1 g PO BID aspirin 81 mg PO DAILY cholecalciferol (vitamin D3) 25 mcg PO DAILY comp.stocking,thigh,long,large As directed 20-30 mm HG, black sodium chloride 0.65% (Saline Nasal) 2 sprays intranasal QID PRN zolpidem 10 mg PO BEDTIME PRN 90 days HPI Comments Details: Osman is a 71-year-old man with a history of paroxysmal atrial fibrillation status post failed ablation. History of DVT/lupus anticoagulant positivity and he is on Eliquis. History of type 2 diabetes mellitus non rheumatic mitral valve disease. He has underlying CKD with a baseline creatinine somewhere around 2 mg/dL. He is a history of congestive heart failure secondary to severe MVR underwent mitral valve annuloplasty full Maze and left atrial appendage amputation with postop course complicated by mediastinal exploration and evacuation of hematoma. During this process he sustained acute kidney injury with a creatinine peaking at 3.5 mg/dL. During routine imaging he was found to have right-sided hydronephrosis. He is aware of this but no intervention was made at the time. This was back in 2021 He is here for follow-up regarding chronic kidney disease. He has noticed a thin stream during urination. No dysuria urgency increased frequency. No urgency no hesitation. At present he has no shortness of breath no nausea vomiting. No rash no edema. 12/15/23 Sono showed right hydro and was asked to come in today by my associate [facility] Medical History Vertigo 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 Atherosclerotic cardiovascular disease Normally functioning cardiac pacemaker present Acute kidney injury Generalized anxiety disorder Osteoarthritis of knees, bilateral Obstructive sleep apnea (adult) (pediatric) Preoperative cardiovascular examination DVT (deep venous thrombosis) Nasal polyp Asthma Nonrheumatic mitral valve regurgitation Cardiomyopathy Cerebral infarction due to embolism of unspecified cerebral artery PVC (premature ventricular contraction) Anxiety Allergic rhinitis Insomnia Congestive heart failure Gastroesophageal reflux disease Impaired glucose tolerance Congestive heart failure Lupus anticoagulant positive Paroxysmal atrial fibrillation Hypercholesterolemia Surgical History H/O hernia repair Ventral hernia Status post mitral valve repair History of cardiac radiofrequency ablation (~03/16/21) Status post arthroscopy of left knee History of cardioversion (~01/17/20) S/P medial meniscectomy of left knee History of arthroscopy of left knee Hx of repair of right rotator cuff History of tonsillectomy Family History Father HTN (hypertension) CVA (cerebral vascular accident) Mother Skin cancer Maternal Uncle Colon cancer Son No problems noted. Daughter No problems noted. Family/Other Breast cancer Paternal Uncle Colon cancer Social History Housing: House Are you a primary gericare aide to a significant other at home: No Do you presently have visiting nurse or other home services: No Alcohol intake: never Patient Tobacco Use Status: Former Tobacco user Tobacco use type: Cigarette Years Smoked: 12 +/- e-Cigarette/Vaping Use: Never Used Second Hand Smoke Exposure: No Current occupational status: retired Cognitive needs: No Hearing needs: No Vision needs: No Physical Exam Vital Signs: Last Vital Signs Pulse 79 12/15/23 11:03 BP 120/80 12/15/23 11:14 Pulse Ox 98 12/15/23 11:03 Oxygen Delivery Method Room Air 12/15/23 11:03 BMI result Body Mass Index 25.2 Results Reviewed Nephrology Results: Hgb 13.4 g/dl (14.0-18.0) L 11/16/23 WBC 5.9 X10*3/uL (4.8-10.8) 11/16/23 Plt Count 261 X10*3/uL (160-400) 11/16/23 Sodium 140 mmol/L (135-145) 12/15/23 Potassium 4.8 mmol/L (3.3-5.1) 12/15/23 Chloride 109 mmol/L (96-108) H 12/15/23 Carbon Dioxide 24 mmol/L (22-29) 12/15/23 BUN 38 mg/dL (9-16) H 12/15/23 Creatinine 2.32 mg/dL (0.5-1.4) H 12/15/23 Calcium 9.5 mg/dL (8.4-10.2) 12/15/23 Renal US 12/01/23 Assessment & Plan Assessment & Plan (1) CKD (chronic kidney disease) stage 4, GFR 15-29 ml/min: Code(s): N18.4 - Chronic kidney disease, stage 4 (severe) Category: Medical (2) Hydronephrosis: Code(s): N13.30 - Unspecified hydronephrosis Category: Medical Plan Ray has chronic kidney disease with a baseline creatinine of around 2.0 mg/dL. He has sustained acute kidney injury 2 years ago during hospitalization which resolved. renal ultrasonogram shows right hydro will refer to Urology. The meantime continue to avoid nephrotoxic agents. Optimize blood pressure Keep intake more than output. Stay on low-potassium diet in view of mild hyperkalemia. If potassium stays above 5.5 ,I will add Lokelma. Orders: Orders Basic Metabolic Panel 12/15/23 N18.4 - Chronic kidney disease, stage 4 (severe) Referrals Urology Referral N13.30 - Unspecified hydronephrosis, N18.4 - Chronic kidney disease, stage 4 (severe), R31.9 - Hematuria, unspecified Coding Level of Care Code Est Pt Level 4 (86565) Diagnoses CKD (chronic kidney disease) stage 4, GFR 15-29 ml/min N18.4 Hydronephrosis N13.30
[2023-12-15 11:03] VITALS: BP 146/74; PULSE 79; O2SAT 98; BMI 25.2
[2023-12-15 11:14] VITALS: BP 120/80
== END 2023-12-15 11:20 | disposition home or self-care (01) ==
PROVIDERS: PCP Internal Medicine; Visit Provider Internal Medicine Hypertension Specialist
DX: N18.4 Chronic kidney disease, stage 4 (severe) (principal); N13.30 Unspecified hydronephrosis
CPT/HCPCS: 99214

== ENCOUNTER 2023-12-15 11:02 | Outpatient (REF) | payer MEDICARE, SELFPAY ==
[2023-12-15 12:45] LABS: Anion Gap 12 (12-20); Blood Urea Nitrogen 38 mg/dL (9-16); Calcium 9.5 mg/dL (8.4-10.2); Carbon Dioxide 24 mmol/L (22-29); Chloride 109 mmol/L (96-108); Estimated Glomerular Filt Rate 28; Glucose Random 98 mg/dL (60-115); Potassium 4.8 mmol/L (3.3-5.1); Sodium 140 mmol/L (135-145)
== END 2023-12-15 11:03 | disposition home or self-care (01) ==
LOC: HO.LAB 11:02
PROVIDERS: PCP Internal Medicine; Visit Provider Internal Medicine Hypertension Specialist
DX: E11.22 Type 2 diabetes mellitus with diabetic chronic kidney disease (principal); N18.4 Chronic kidney disease, stage 4 (severe); N13.30 Unspecified hydronephrosis; Z79.01 Long term (current) use of anticoagulants; Z86.718 Personal history of other venous thrombosis and embolism
CPT/HCPCS: 36415; 80048; 99212

== ENCOUNTER → 2023-12-20 14:03 | Outpatient (RCR) | payer MEDICARE, SELFPAY ==
--- NOTE | 2020-02-15 14:04 | P.PNHO_ITS ---
[facility] Telehealth - Telehealth Location of Provider rendering services: Office Location of Patient: home Patient verbally consented to billing insurance company: Yes Patient informed of any privacy concerns related to visit: Yes Medical Summary - Medical Summary Chief complaint: Scheduled follow up. Medical Summary: Diagnosis: Right lower extremity DVT in 2012, CVA in July 2018 Interval History Interval history: Patient was consented for telephone interview based on COVID-19 pandemic guidelines. He is doing okay, he has had issues with his heart. He was hospitalized for atrial fibrillation. He remains on Eliquis. He wants to know about repeat lupus anticoagulant tests that he had done previously. Review of Systems - Constitutional Reports as per HPI, Reports no additional constitutional complaints Home Medications and Allergies Home Medications Medication Instructions Recorded Confirmed Type albuterol sulfate 90 mcg/actuation 2 puff INHALATION Q4H PRN g 01/24/20 01/31/20 History aerosol inhaler alprazolam 0.5 mg tablet 0.5 mg PO .COMPLEX 01/24/20 01/31/20 History apixaban 5 mg tablet 5 mg PO BID 01/24/20 01/31/20 History ascorbic acid (vitamin C) 1,000 mg 1 g PO BID tab 01/25/20 01/31/20 History tablet cholecalciferol (vitamin D3) 25 25 mcg PO DAILY 01/31/20 01/31/20 History mcg (1,000 unit) capsule Allergies Allergy/AdvReac Type Severity Reaction Status Date / Time Sulfa (Sulfonamide Allergy Mild RASH Verified 01/31/20 08:28 Antibiotics) [SULFA(SULFONAMIDE ANTIBIOTICS)] atorvastatin Allergy Unknown Unknown Verified 01/31/20 08:28 Environmental Allergy Mild ITCHY Uncoded 01/10/20 16:09 WATERY EYES, SNEEZING Progress Note: A/P (1) History of DVT (deep vein thrombosis) Status: Acute Assessment and plan: 1. This is a pleasant 68-year-old male with history of right lower extremity DVT, in October 2012 after he had a fracture of his right foot and his leg was in a cast. He was somewhat immobilized. He was on anticoagulation for 6 months with warfarin. Subsequently in July 2018 he had a stroke, related to atrial fibrillation. He is now on anticoagulation with Eliquis. He has been referred to see if he has any underlying thrombophilia. Thrombophilia workup showed positivity for lupus anticoagulant with 1 of the confirmatory test being positive in September 2018, this was repeated 3 months later and it was negative. Both anti cardiolipin and beta 2 glycoprotein antibodies w ere negative. Initial lupus anticoagulant was probably false-positive in the setting of anticoagulation. This was explained to the patient. Results were discussed. He will now follow up with his PCP. - Time Spent With Patient Total time spent is greater than 50% in coordination of care (as documented) at patient's floor/unit and/or counseling patient: less than 15 minutes
--- NOTE | 2020-02-15 14:37 | MHC.HEMONC ---
Per Dr. Clemons patient does not need to follow up.
== END | disposition home or self-care (01) ==
LOC: HO.ONC 02-15 13:30
PROVIDERS: PCP Internal Medicine; Visit Provider Internal Medicine
DX: Z86.718 Personal history of other venous thrombosis and embolism (principal); I48.91 Unspecified atrial fibrillation; Z86.73 Personal history of transient ischemic attack (TIA), and cerebral infarction without residual deficits; Z79.01 Long term (current) use of anticoagulants
CPT/HCPCS: 99212

== ENCOUNTER 2024-01-25 10:05 | Outpatient (AMB) | payer MEDICARE, SELFPAY ==
--- NOTE | 2024-01-25 10:16 | A.OFFVIS_ITS ---
Intake Visit Reasons: Hydronephrosis/Hematuria Intake Note: Patient is present for HYDRONEPHROSIS/HEMATURIA Urology Medication:NONE Antibiotic Allergy:AMOXICILLIN Blood Thinner:ASPIRIN Medical Instrument Technician Required: No Allergies gabapentin Allergy (Severe, Verified 01/25/24 10:17) Dizziness atorvastatin Allergy (Intermediate, Verified 01/25/24 10:17) Muscle cramps rosuvastatin Allergy (Intermediate, Verified 01/25/24 10:17) Muscle cramps Sulfa (Sulfonamide Antibiotics) [SULFA(SULFONAMIDE ANTIBIOTICS)] Allergy (Mild, Verified 01/25/24 10:17) RASH metoprolol Adverse Reaction (Severe, Verified 01/25/24 10:17) Chest Pain, sob, dizziness amoxicillin Adverse Reaction (Mild, Verified 01/25/24 10:17) Rash HPI Comments Details: Eliazar is a pleasant male. He is a patient of Dr. Feldman. He seen for the following urologic conditions - chronic hydronephrosis - lower urinary tract symptoms Chronic hydronephrosis Has had progressive medical renal disease last creatinine 2.3 has been in this range since 2021 Recent renal ultrasound showing right hydronephrosis with normal parenchyma Plan for Lasix renogram Lower urinary tract symptoms Progressive weakness of stream Feelings of incomplete emptying Trial Flomax PFSH Medical History Vertigo 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 Atherosclerotic cardiovascular disease Normally functioning cardiac pacemaker present Acute kidney injury Generalized anxiety disorder Osteoarthritis of knees, bilateral Obstructive sleep apnea (adult) (pediatric) Preoperative cardiovascular examination DVT (deep venous thrombosis) Nasal polyp Asthma Nonrheumatic mitral valve regurgitation Cardiomyopathy Cerebral infarction due to embolism of unspecified cerebral artery PVC (premature ventricular contraction) Anxiety Allergic rhinitis Insomnia Congestive heart failure Gastroesophageal reflux disease Impaired glucose tolerance Congestive heart failure Lupus anticoagulant positive Paroxysmal atrial fibrillation Hypercholesterolemia Surgical History H/O hernia repair Ventral hernia Status post mitral valve repair History of cardiac radiofrequency ablation (~03/16/21) Status post arthroscopy of left knee History of cardioversion (~01/17/20) S/P medial meniscectomy of left knee History of arthroscopy of left knee Hx of repair of right rotator cuff History of tonsillectomy Family History Father HTN (hypertension) CVA (cerebral vascular accident) Mother Skin cancer Maternal Uncle Colon cancer Son No problems noted. Daughter No problems noted. Family/Other Breast cancer Paternal Uncle Colon cancer Social History Housing: House Are you a primary vocational childcare teacher to a significant other at home: No Do you presently have visiting nurse or other home services: No Alcohol intake: never Patient Tobacco Use Status: Former Tobacco user Tobacco use type: Cigarette Years Smoked: 12 +/- e-Cigarette/Vaping Use: Never Used Second Hand Smoke Exposure: No Current occupational status: retired Cognitive needs: No Hearing needs: No Vision needs: No Review of Systems Const Denies chills and Denies fever(s) Card Reports no additional complaints and Denies syncope Resp Denies cough GI Denies abdominal pain and Denies heartburn Reports as per HPI and Denies change in libido Neuro Denies syncope Psych Denies change in libido Endo Denies change in libido Physical Exam Const General: cooperative, healthy appearing, comfortable and no acute distress Orientation/consciousness: patient oriented x3 HEENT Face and sinus: Yes normal facial exam Mouth: moist mucous membranes Neck Neck: Yes normal visual inspection, Yes full ROM and Yes trachea midline Chest Chest palpation & inspection: normal inspection of the chest Resp Effort & Inspection: normal respiratory effort, able to speak in complete sentences and no respiratory distress GI Inspection: Yes normal to inspection Back/Spine/Pelvis Cervical Spine: normal cervical lordosis Thoracic/Lumbar Spine: thoracic and lumbar spine normal to inspection Skin General skin exam: no rashes or lesions noted Neuro General: patient oriented x3, gait normal, tone normal and moves all extremities Extrem General: Yes normal to inspection and Yes capillary refill normal Assessment & Plan Assessment & Plan (1) Weak urinary stream: Code(s): R39.12 - Poor urinary stream Category: Medical (2) Hydronephrosis: Code(s): N13.30 - Unspecified hydronephrosis Category: Medical Plan Lasix renogram Tamsulosin Orders: Orders NM renal flow w pharm int Today N13.30 - Unspecified hydronephrosis Medications: New tamsulosin 0.4 mg PO BEDTIME 30 days 30 caps 1RF N40.1 - Benign prostatic hyperplasia with lower urinary tract symptoms, R35.1 - Nocturia, R39.12 - Poor urinary stream Patient Instructions: Imaging studies, laboratory and physical exam results were discussed and reviewed in detail. No major barriers to patient understanding were identified. An opportunity to ask questions regarding the treatment plan was provided. All q uestions were answered. The patient expressed understanding and agreement with the above treatment plan. The patient is aware they should contact our office by phone for worsening of their current condition or the appearance of new urologic symptoms. Compliance is encouraged with any medications and followup testing that is ordered. It is a privilege to participate in the urologic care of your patient. If you have any questions or concerns regarding treatment for the above conditions, or other urologic issues, please do not hesitate to contact me. The office telephone contact is [phone]. This note is constructed using voice recognition software. While every effort has been made to ensure accuracy cone operator errors may have been included. Yours sincerely, Dr Antoine Kate MD, [facility] - Urology Providers of Expert, Compassionate Care for the Genitourinary System Coding Level of Care Code New Pt Level 4 (48470) Diagnoses Weak urinary stream R39.12 Hydronephrosis N13.30
== END 2024-01-25 11:26 | disposition home or self-care (01) ==
PROVIDERS: PCP Internal Medicine; Visit Provider Urology
DX: R39.12 Poor urinary stream (principal); N13.30 Unspecified hydronephrosis
CPT/HCPCS: 99204

== ENCOUNTER → 2024-01-25 10:05 | Outpatient (BNVA) | payer MEDICARE, SELFPAY | PROVIDERS: PCP Internal Medicine; Visit Provider Urology | DX: R39.12 Poor urinary stream (principal); N13.30 Unspecified hydronephrosis | CPT/HCPCS: 99202 ==

== ENCOUNTER 2024-01-26 10:53 | Outpatient (AMB) | payer MEDICARE, SELFPAY ==
--- NOTE | 2024-01-26 10:55 | HO.NEPHOV_ITS ---
Vital Signs 01/26/24 10:56 01/26/24 11:10 Height 6 ft 2 in Weight 198 lb BMI 25.4 BP 138/76 130/70 Blood Pressure Location Lt brachial Lt brachial Position Sitting Sitting Pulse 85 Pulse Source Pulse Oximeter Pulse Oximetry (%) 98 Oxygen Delivery Method Room Air Intake Visit Reasons: 6 wks follow up/ LVM Binding Cutter Synthetic Cloth Required: No Accompanied by: Self / Same As Patient Allergies gabapentin Allergy (Severe, Verified 01/26/24 10:57) Dizziness atorvastatin Allergy (Intermediate, Verified 01/26/24 10:57) Muscle cramps rosuvastatin Allergy (Intermediate, Verified 01/26/24 10:57) Muscle cramps Sulfa (Sulfonamide Antibiotics) [SULFA(SULFONAMIDE ANTIBIOTICS)] Allergy (Mild, Verified 01/26/24 10:57) RASH metoprolol Adverse Reaction (Severe, Verified 01/26/24 10:57) Chest Pain, sob, dizziness amoxicillin Adverse Reaction (Mild, Verified 01/26/24 10:57) Rash Medication List - Last Reconciled 01/26/24 by Denis Villa MD albuterol sulfate 90 mcg/actuation (ProAir HFA) 2 puffs inhalation Q4H PRN APAP Machine/Device As directed ascorbic acid (vitamin C) 1 g PO BID aspirin 81 mg PO DAILY cholecalciferol (vitamin D3) 25 mcg PO DAILY comp.stocking,thigh,long,large As directed 20-30 mm HG, black sodium chloride 0.65% (Saline Nasal) 2 sprays intranasal QID PRN tamsulosin 0.4 mg PO BEDTIME 30 days zolpidem 10 mg PO BEDTIME PRN 90 days HPI Comments Details: Osman is a 71-year-old man with a history of paroxysmal atrial fibrillation status post failed ablation. History of DVT/lupus anticoagulant positivity and he is on Eliquis. History of type 2 diabetes mellitus non rheumatic mitral valve disease. He has underlying CKD with a baseline creatinine somewhere around 2 mg/dL. He is a history of congestive heart failure secondary to severe MVR underwent m itral valve annuloplasty full Maze and left atrial appendage amputation with postop course complicated by mediastinal exploration and evacuation of hematoma. During this process he sustained acute kidney injury with a creatinine peaking at 3.5 mg/dL. During routine imaging he was found to have right-sided hydronephrosis. He is aware of this but no intervention was made at the time. This was back in 2021 He is here for follow-up regarding chronic kidney disease. He has noticed a thin stream during urination. No dysuria urgency increased frequency. No urgency no hesitation. At present he has no shortness of breath no nausea vomiting. No rash no edema. 12/15/23:Elvia showed right hydro and was asked to come in today by my associate 01/26/24 Seen by [facility] Medical History Vertigo 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 Atherosclerotic cardiovascular disease Normally functioning cardiac pacemaker present Acute kidney injury Generalized anxiety disorder Osteoarthritis of knees, bilateral Obstructive sleep apnea (adult) (pediatric) Preoperative cardiovascular examination DVT (deep venous thrombosis) Nasal polyp Asthma Nonrheumatic mitral valve regurgitation Cardiomyopathy Cerebral infarction due to embolism of unspecified cerebral artery PVC (premature ventricular contraction) Anxiety Allergic rhinitis Insomnia Congestive heart failure Gastroesophageal reflux disease Impaired glucose tolerance Congestive heart failure Lupus anticoagulant positive Paroxysmal atrial fibrillation Hypercholesterolemia Surgical History H/O hernia repair Ventral hernia Status post mitral valve repair History of cardiac radiofrequency ablation (~03/16/21) Status post arthroscopy of left knee History of cardioversion (~01/17/20) S/P medial meniscectomy of left knee History of arthroscopy of left knee Hx of repair of right rotator cuff History of tonsillectomy Family History Father HTN (hypertension) CVA (cerebral vascular accident) Mother Skin cancer Maternal Uncle Colon cancer Son No problems noted. Daughter No problems noted. Family/Other Breast cancer Paternal Uncle Colon cancer Social History Housing: House Are you a primary career development engineer to a significant other at home: No Do you presently have visiting nurse or other home services: No Alcohol intake: never Patient Tobacco Use Status: Former Tobacco user Tobacco use type: Cigarette Years Smoked: 12 +/- e-Cigarette/Vaping Use: Never Used Second Hand Smoke Exposure: No Current occupational status: retired Cognitive needs: No Hearing needs: No Vision needs: No Physical Exam Vital Signs: Last Vital Signs Pulse 85 01/26/24 10:56 BP 138/76 01/26/24 10:56 Pulse Ox 98 01/26/24 10:56 Oxygen Delivery Method Room Air 01/26/24 10:56 BMI result Body Mass Index 25.4 Const General: comfortable; No acute distress Orientation/consciousness: patient oriented x3 Eyes General: appearance normal, both eyes and all related structures Visual Hannon: normal visual hannon by confrontation Neck Neck: Yes supple and Yes no JVD Resp Effort & Inspection: normal respiratory effort and respiratory effort not decreased Auscultation: rhonchi Cardio Palpation: no palpable S3 and no palpable S4 Heart sounds: no rubs GI Inspection: Yes normal to inspection Palpation (GI): Soft to palpation Percussion: Yes normal to percussion Auscultation: normal bowel sounds General: Yes no CVA tenderness Back/Spine/Pelvis Back: no CVA tenderness Skin General skin exam: no petechiae and no purpura Neuro General: patient oriented x3 and no focal motor deficits Extrem General: No clubbing and No edema Results Reviewed Nephrology Results: Hgb 13.4 g/dl (14.0-18.0) L 11/16/23 WBC 5.9 X10*3/uL (4.8-10.8) 11/16/23 Plt Count 261 X10*3/uL (160-400) 11/16/23 Sodium 140 mmol/L (135-145) 12/15/23 Potassium 4.8 mmol/L (3.3-5.1) 12/15/23 Chloride 109 mmol/L (96-108) H 12/15/23 Carbon Dioxide 24 mmol/L (22-29) 12/15/23 BUN 38 mg/dL (9-16) H 12/15/23 Creatinine 2.32 mg/dL (0.5-1.4) H 12/15/23 Calcium 9.5 mg/dL (8.4-10.2) 12/15/23 Renal US 12/01/23 Assessment & Plan Assessment & Plan (1) CKD (chronic kidney disease) stage 4, GFR 15-29 ml/min: Code(s): N18.4 - Chronic kidney disease, stage 4 (severe) Category: Medical (2) Hydronephrosis: Code(s): N13.30 - Unspecified hydronephrosis Category: Medical Plan Osman has chronic kidney disease with a baseline creatinine of around 2.0 mg/dL. He has sustained acute kidney injury 2 years ago during hospitalization which resolved. renal ultrasonogram shows right hydro Seen by Urology. Await Lasix scan The meantime continue to avoid nephrotoxic agents. Optimize blood pressure Keep intake more than output. Stay on low-potassium diet in view of mild hyperkalemia. Orders: Orders Basic Metabolic Panel 4 Months N18.4 - Chronic kidney disease, stage 4 (severe) Complete Blood Count Auto Diff 4 Months N18.4 - Chronic kidney disease, stage 4 (severe) Coding Level of Care Code Est Pt Level 4 (06357) Diagnoses CKD (chronic kidney disease) stage 4, GFR 15-29 ml/min N18.4 Hydronephrosis N13.30
[2024-01-26 10:56] VITALS: BP 138/76; PULSE 85; O2SAT 98; BMI 25.4
[2024-01-26 11:10] VITALS: BP 130/70
== END 2024-01-26 11:14 | disposition home or self-care (01) ==
PROVIDERS: PCP Internal Medicine; Visit Provider Internal Medicine Hypertension Specialist
DX: N18.4 Chronic kidney disease, stage 4 (severe) (principal); N13.30 Unspecified hydronephrosis
CPT/HCPCS: 99214

== ENCOUNTER → 2024-01-26 10:53 | Outpatient (BNVA) | payer MEDICARE, SELFPAY | PROVIDERS: PCP Internal Medicine; Visit Provider Internal Medicine Hypertension Specialist | DX: E11.22 Type 2 diabetes mellitus with diabetic chronic kidney disease (principal); N18.4 Chronic kidney disease, stage 4 (severe); N13.30 Unspecified hydronephrosis | CPT/HCPCS: 99212 ==

== ENCOUNTER 2024-02-09 11:29 | Outpatient (AMB) | payer MEDICARE, SELFPAY ==
--- NOTE | 2024-02-09 13:01 | A.OFFVIS_ITS ---
Intake Visit Reasons: adjust AF burden medtronic Allergies gabapentin Allergy (Severe, Verified 01/26/24 10:57) Dizziness atorvastatin Allergy (Intermediate, Verified 01/26/24 10:57) Muscle cramps rosuvastatin Allergy (Intermediate, Verified 01/26/24 10:57) Muscle cramps Sulfa (Sulfonamide Antibiotics) [SULFA(SULFONAMIDE ANTIBIOTICS)] Allergy (Mild, Verified 01/26/24 10:57) RASH metoprolol Adverse Reaction (Severe, Verified 01/26/24 10:57) Chest Pain, sob, dizziness amoxicillin Adverse Reaction (Mild, Verified 01/26/24 10:57) Rash REPLACED BY [facility] Medical History Vertigo 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 Atherosclerotic cardiovascular disease Normally functioning cardiac pacemaker present Acute kidney injury Generalized anxiety disorder Osteoarthritis of knees, bilateral Obstructive sleep apnea (adult) (pediatric) Preoperative cardiovascular examination DVT (deep venous thrombosis) Nasal polyp Asthma Nonrheumatic mitral valve regurgitation Cardiomyopathy Cerebral infarction due to embolism of unspecified cerebral artery PVC (premature ventricular contraction) Anxiety Allergic rhinitis Insomnia Congestive heart failure Gastroesophageal reflux disease Impaired glucose tolerance Congestive heart failure Lupus anticoagulant positive Paroxysmal atrial fibrillation Hypercholesterolemia Surgical History H/O hernia repair Ventral hernia Status post mitral valve repair History of cardiac radiofrequency ablation (~03/16/21) Status post arthroscopy of left knee History of cardioversion (~01/17/20) S/P medial meniscectomy of left knee History of arthroscopy of left knee Hx of repair of right rotator cuff History of tonsillectomy Family History Father HTN (hypertension) CVA (cerebral vascular accident) Mother Skin cancer Maternal Uncle Colon cancer Son No problems noted. Daughter No problems noted. Family/Other Breast cancer Paternal Uncle Colon cancer Social History Housing: House Are you a primary childcare worker to a significant other at home: No Do you presently have visiting nurse or other home services: No Alcohol intake: never Patient Tobacco Use Status: Former Tobacco user Tobacco use type: Cigarette Years Smoked: 12 +/- e-Cigarette/Vaping Use: Never Used Second Hand Smoke Exposure: No Current occupational status: retired Cognitive needs: No Hearing needs: No Vision needs: No Office Procedures Cardiac Device Check Cardiac Device Check Details: Device check in our office today as requested by his EP provider Dr Crockett. Medtronic dual chamber PPM, battery 11.7 yrs, atrial and ventricular thresholds normal, AAIR- DDDR more, low rate 70, episode of AF on 02/02/24 lasting 7 hr 2 min, V rate 162, other episodes only seconds long. He has ATP therapy for AF and did recieve it on 02/01 episode. Device is not an ICD. No device changes needed. At this time he is AP/ VS with [facility] PACs. [id number] Cardiac Device Check, pacemaker dual lead Procedure code (CPT) selection complete Assessment & Plan Assessment & Plan (1) Pacemaker: Code(s): Z95.0 - Presence of cardiac pacemaker Category: Medical Plan: device check (2) Paroxysmal atrial fibrillation: Code(s): I48.0 - Paroxysmal atrial fibrillation Category: Medical Plan: one 7 hr episode of PAF. HS aware. Follows with EP. Coding Level of Care Code Procedure Only Diagnoses Pacemaker Z95.0 Paroxysmal atrial fibrillation I48.0 CPT Codes Cardiac Device Check - Cardiac Device 2: [id number] Cardiac Device Check, pacemaker dual lead ([id number])
== END 2024-02-09 12:04 | disposition home or self-care (01) ==
PROVIDERS: PCP Internal Medicine; Visit Provider Nurse Practitioner Family
DX: I48.0 Paroxysmal atrial fibrillation (principal); Z95.0 Presence of cardiac pacemaker
CPT/HCPCS: 93280

== ENCOUNTER → 2024-02-09 11:29 | Outpatient (BNVA) | payer MEDICARE, SELFPAY | PROVIDERS: PCP Internal Medicine; Visit Provider Nurse Practitioner Family | DX: I48.0 Paroxysmal atrial fibrillation (principal); Z95.0 Presence of cardiac pacemaker | CPT/HCPCS: 93280 ==

== ENCOUNTER 2024-03-08 12:34 | Outpatient (REF) | payer MEDICARE, SELFPAY ==
[2024-03-08 18:21] LABS: Anion Gap 13 (12-20); Blood Urea Nitrogen 38 mg/dL (9-16); Calcium 9.4 mg/dL (8.4-10.2); Carbon Dioxide 23 mmol/L (22-29); Chloride 108 mmol/L (96-108); Estimated Glomerular Filt Rate 27; Glucose Random 110 mg/dL (60-115); Potassium 4.9 mmol/L (3.3-5.1); Sodium 139 mmol/L (135-145)
== END 2024-03-08 12:35 | disposition home or self-care (01) ==
LOC: HO.HMGCLDS 12:34
PROVIDERS: PCP Internal Medicine; Visit Provider Internal Medicine Hypertension Specialist
DX: N18.4 Chronic kidney disease, stage 4 (severe) (principal)
CPT/HCPCS: 36415; 80048

== ENCOUNTER → 2024-03-15 12:52 | Outpatient (REF) | payer MEDICARE, SELFPAY ==
--- NOTE | ~2024-03-15 | NM_ITS ---
EXAMINATION: RENAL DYNAMIC IMAGING STUDY WITH LASIX CLINICAL INFORMATION: Reason for exam: Hydronephrosis. CORRELATION: Retroperitoneal ultrasound from December 01, 2023. TECHNIQUE: Serial gamma scintillation camera images were obtained over the posterior trunk during the initial transit and subsequent distribution of a bolus intravenous injection of 10 mCi of Tc-99m DTPA. At 30 minutes later, 40 mg of Lasix was administered intravenously and an additional 30 minutes of images obtained. FINDINGS: Initial rapid sequence images show prompt but asymmetry with significant flow to the left kidney with markedly decreased to no clearly appreciable flow to the right kidney. Subsequent images: Right kidney, insufficient radiotracer accumulation throughout the course of the imaging limiting the evaluation of the parenchymal as well as excretory function. Left kidney demonstrate expected parenchymal uptake with peak. There appears to be impaired corticomedullary transit as demonstrated by significant retention within the renal cortex throughout the course of the imaging. There is moderate to good spontaneous clearance of the collected radiotracer in the left renal collecting system with no demonstrable response following Lasix administration. The T-1/2 post Lasix: Left, unable to calculate related to no demonstrable response. Right, insufficient activity for evaluation. The relative function of the two kidneys based on the 2-3 minute images: Left 88.2% and right 11.8%. NM/NM renal flow w pharm int IMPRESSION: 1. RIGHT KIDNEY: Markedly impaired cortical function. 2. LEFT KIDNEY: Suspicion for mild impaired parenchymal function. This finding precludes the accurate evaluation of the excretory function. Suggest correlation to the renal function tests including correlation to dedicated anatomic imaging to further characterize mechanical obstruction versus functional impairment. Electronically signed by: Nova Kwon MD 04/05/2024 03:04 PM ARIA MATHEW
[2024-03-15] MEDS: Furosemide 40 MG/4 ML VIAL IVPUSH (14:02)
== END ==
LOC: HO.NUCMED 12:52
PROVIDERS: PCP Internal Medicine; Visit Provider Urology
DX: N13.30 Unspecified hydronephrosis (principal)
CPT/HCPCS: 78708; A9539; J1940

== ENCOUNTER 2024-03-26 13:19 | Outpatient (AMB) | payer MEDICARE, SELFPAY ==
--- NOTE | 2024-03-26 13:34 | MHC.PC.OV ---
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: No Accompanied by: Self / Same As Patient Allergies gabapentin Allergy (Severe, Verified 03/26/24 13:36) Dizziness atorvastatin Allergy (Intermediate, Verified 03/26/24 13:36) Muscle cramps rosuvastatin Allergy (Intermediate, Verified 03/26/24 13:36) Muscle cramps Sulfa (Sulfonamide Antibiotics) [SULFA(SULFONAMIDE ANTIBIOTICS)] Allergy (Mild, Verified 03/26/24 13:36) RASH metoprolol Adverse Reaction (Severe, Verified 03/26/24 13:36) Chest Pain, sob, dizziness amoxicillin Adverse Reaction (Mild, Verified 03/26/24 13:36) Rash Medication List - Last Reconciled 03/26/24 by Gerda Feldman, albuterol sulfate 90 mcg/actuation (ProAir HFA) 2 puffs inhalation Q4H PRN APAP Machine/Device As directed ascorbic acid (vitamin C) 1 g PO BID aspirin 81 mg PO DAILY cholecalciferol (vitamin D3) 25 mcg PO DAILY comp.stocking,thigh,long,large As directed 20-30 mm HG, black sodium chloride 0.65% (Saline Nasal) 2 sprays intranasal QID PRN tamsulosin 0.4 mg PO BEDTIME 30 days zolpidem 10 mg PO BEDTIME PRN 90 days Tobacco use date assessed: 03/26/24 Fall risk assessment: No Falls in past year Last assessed Fall Risk: 03/26/24 Dental Screening Dental Screen Date: 03/26/24 Did you have a dental visit in the last 12 months?: No Did you have a dental problem in the last 6 months where you did not have access to dental care?: No Was dental information given to patient?: Patient has dentist HPI Heart 6 month F/U HPI Details 74-year-old male who have a history of paroxysmal atrial fibrillation status post failed ablation, history of DVT patient has lupus anticoagulant positivity on Eliquis, chronic kidney disease congestive heart failure hypercholesterolemia mitral regurgitation with status post repair(annuloplasty full Maze and left atrial appendage amputation) obstructive sleep apnea and ascending aorta dilatation coming in for follow-up. Last seen in 02/11/2023. Patient's last colonoscopy had a Cologuard-. Reviewed notes had renal scan that is pending results patient did see Cardiology in February 08 for cardiac pacemaker check had 1 7 are episode of AF. Nephrology notes January 25 chronic kidney disease stage IV renal sonogram showing hydronephrosis right stay on low potassium diet. For the hydronephrosis seen urology awaiting test and the on tamsulosin. Patient has seen Cardiology and patient is statin intolerance placed on Zetia. Only. Echocardiogram 11/30/2023 Normal LV ejection fraction of 55-60% 2. [id number] mitral regurgitation with known prior mitral valve repair 3. Mildly dilated ascending aorta at 4 cm 4. No gross pericardial effusion patient has a mild obstructive sleep apnea AHI of 6 per hour but with the irregular heart rate placed on APAP. decline being the portal. decline taking cholesterol as the zetia is very expensive.. complains of portal and would not like to go into . Otherwise patient was told about the atrial fibrillation but declined to have anticoagulation. 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 Atherosclerotic cardiovascular disease Normally functioning cardiac pacemaker present Acute kidney injury Generalized anxiety disorder Osteoarthritis of knees, bilateral Obstructive sleep apnea (adult) (pediatric) Preoperative cardiovascular examination DVT (deep venous thrombosis) Nasal polyp Asthma Nonrheumatic mitral valve regurgitation Cardiomyopathy Cerebral infarction due to embolism of unspecified cerebral artery PVC (premature ventricular contraction) Anxiety Allergic rhinitis Insomnia Congestive heart failure Gastroesophageal reflux disease Impaired glucose tolerance Congestive heart failure Lupus anticoagulant positive Paroxysmal atrial fibrillation Hypercholesterolemia Surgical History H/O hernia repair Ventral hernia Status post mitral valve repair History of cardiac radiofrequency ablation (~03/16/21) Status post arthroscopy of left knee History of cardioversion (~01/17/20) S/P medial meniscectomy of left knee History of arthroscopy of left knee Hx of repair of right rotator cuff History of tonsillectomy Family History Father HTN (hypertension) CVA (cerebral vascular accident) Mother Skin cancer Maternal Uncle Colon cancer Son No problems noted. Daughter No problems noted. Family/Other Breast cancer Paternal Uncle Colon cancer Social History Housing: House Are you a primary interior plant caretaker to a significant other at home: No Do you presently have visiting nurse or other home services: No Alcohol intake: never Patient Tobacco Use Status: Former Tobacco user Tobacco use type: Cigarette Years Smoked: 12 +/- e-Cigarette/Vaping Use: Never Used Second Hand Smoke Exposure: No service: No Current occupational status: retired Cognitive needs: No Hearing needs: No Vision needs: No Questionnaire PHQ-9 Over the last 2 weeks, how often have you been bothered by any of the following problems? 1. Little interest or pleasure in doing things: not at all 2. Feeling down, depressed, or hopeless: not at all 3. Trouble falling or staying asleep, or sleeping too much: not at all 4. Feeling tired or having little energy: not at all 5. Poor appetite or overeating: not at all 6. Feeling bad about yourself - or that you are a failure or have let yourself or your family down: not at all 7. Trouble concentrating on things, such as reading the newspaper or watching television: not at all 8. Moving or speaking so slowly that other people could have noticed. Or the opposite - being so fidgety or restless that you have been moving around a lot more than usual: not at all 9. Thoughts that you would be better off or of hurting yourself in some way: not at all Total score: 0 Depression Screening Interpretation: Negative Depression Screening Done: Yes Source: Developed by Drs. Branden Michael, Sherry Solorio, Frederic Brown and colleagues, with an educational mary from [employer]. Thrive Questionnaire Date Thrive assessed: 03/26/24 I am a: Patient What is your living situation today?: I have a steady place to live Within the past 12 months, did the food you bought not last and you didn't have the money to get more?: Never true Within the past 12 months, did you worry whether your food would run out before you got money to buy more?: Never true Do you have trouble paying for medicines?: No Do you have trouble getting transportation to medical appointments?: No Do you have trouble paying your heating and electricity bill?: No Do you have trouble taking care of your child, family member or friend?: No Do you have trouble with day-to-day activities such as bathing, preparing meals, shopping, managing finances, etc.?: No Are you currently unemployed and looking for a job?: No Are you interested in more education?: No Please select the resources that you would like help with: None Currently or been in a relationship where the following occur: No concerns reported THRIVE Score: 0 AUDIT C Alcohol Use Questionnaire (AUDIT-C) 1. How often do you have a drink containing alcohol?: Monthly or less 2. How many drinks containing alcohol do you have on a typical day when you are drinking?: 1 or 2 3. How often do you have six or more drinks on one occasion?: Never Total Score: 1 VAUGHN-7 AMB Questionnaire VAUGHN-7 Date VAUGHN - 7 assessed: 03/26/24 Feeling nervous, anxious, or on edge: 0 = Not at all Not being able to stop or control worryin = Not at all Worrying too much about different things: 0 = Not at all Trouble relaxin = Not at all Being so restless that it is hard to sit still: 0 = Not at all Becoming easily annoyed or irritable: 0 = Not at all Feeling afraid as if something awful might happen: 0 = Not at all Total VAUGHN-7 score (0-4 normal; 5-9 mild; 10-14 moderate; 15-21 severe): 0 Source: Developed by Drs. Branden Michael, Sherry Solorio, Frederic Brown and colleagues, with an educational mary from [employer]. Physical exam (Primary Care) Tobacco/Smoking Status: Tobacco use Status Tobacco use date assessed 06/04/22 02/08/24 14:21 Patient Tobacco Use Status Former Tobacco user 02/08/24 14:21 Tobacco use type Cigarette 02/08/24 14:21 e-Cigarette/Vaping Use Never Used 02/08/24 14:21 Depression Screening Interpretation: Negative Thrive Assessment: Date of Thrive Assessment Date Thrive assessed 05/06/22 02/08/24 14:21 Currently or been in a relationship where the following occur: No concerns reported Const General: alert; No acute distress Eyes Conjunctivae: conjunctivae normal Resp Auscultation: clear to auscultation bilaterally Cardio Rate: regular rate Rhythm: regular rhythm GI Inspection: Yes normal to inspection Extrem General: Yes normal to inspection and No edema Coding Level of Care Code Est Pt Level 4 (84991) Diagnoses Anemia, unspecified type D64.9 Anemia type: unspecified type History of DVT (deep vein thrombosis) Z86.718 Nonrheumatic mitral valve regurgitation I34.0 Paroxysmal atrial fibrillation I48.0 KAREN on CPAP G47.33; Z99.89 Atherosclerotic cardiovascular disease I25.10 Ascending aorta dilatation I77.810 CKD (chronic kidney disease) stage 4, GFR 15-29 ml/min N18.4 Hydronephrosis, unspecified hydronephrosis type N13.30 Hydronephrosis type: unspecified Assessment & Plan Assessment & Plan (1) Anemia: Code(s): D64.9 - Anemia, unspecified Category: Medical Qualifiers: Anemia type: unspecified type Qualified Code(s): D64.9 - Anemia, unspecified Plan: Continuing to monitor (2) History of DVT (deep vein thrombosis): Comment: stopped eliquis 2022 Code(s): Z86.718 - Personal history of other venous thrombosis and embolism Category: Medical Plan: stopped eliquis 2022 (3) Nonrheumatic mitral valve regurgitation: Comment: Mitral valve repair 11/12/2021 34 cause [place] procedure left atrial appendage amputation Code(s): I34.0 - Nonrheumatic mitral (valve) insufficiency Category: Social Hx Plan: Continue to follow-up with cardiology (4) Paroxysmal atrial fibrillation: Code(s): I48.0 - Paroxysmal atrial fibrillation Category: Medical Plan: Patient continues to be followed up by Cardiology has a pacemaker. (5) KAREN on CPAP: Code(s): G47.33 - Obstructive sleep apnea (adult) (pediatric); Z99.89 - Dependence on other enabling machines and devices Category: Medical Plan: Continue to use the CPAP that was prescribed. (6) Atherosclerotic cardiovascular disease: Code(s): I25.10 - Atherosclerotic heart disease of [place] coronary artery without angina pectoris Category: Medical Plan: Control the cholesterol, weight, blood pressure, on aspirin. (7) Ascending aorta dilatation: Comment: 11/2022 4 cm November 2023 Code(s): I77.810 - Thoracic aortic ectasia Category: Medical Plan: Continuing to monitor. 12/13/2023 last echocardiogram (8) CKD (chronic kidney disease) stage 4, GFR 15-29 ml/min: Code(s): N18.4 - Chronic kidney disease, stage 4 (severe) Category: Medical Plan: Lasix scan pending, avoid NSAIDs continue to monitor. (9) Hydronephrosis: Code(s): N13.30 - Unspecified hydronephrosis Category: Medical Qualifiers: Hydronephrosis type: unspecified Qualified Code(s): N13.30 - Unspecified hydronephrosis Plan: Patient has a scan pending under urology Orders: Referrals Cardiology Referral I25.10 - Atherosclerotic heart disease of [place] coronary artery without angina pectoris Medications: Refilled zolpidem 10 mg PO BEDTIME 90 days PRN 45 tabs 0RF insomnia G47.00 - Insomnia, unspecified
[2024-03-26 13:38] VITALS: BP 132/68; PULSE 74; O2SAT 96; BMI 25.4
== END 2024-03-26 14:24 | disposition home or self-care (01) ==
PROVIDERS: PCP Internal Medicine; Visit Provider Internal Medicine
DX: D64.9 Anemia, unspecified (principal); I48.0 Paroxysmal atrial fibrillation; N18.4 Chronic kidney disease, stage 4 (severe); I77.810 Thoracic aortic ectasia; Z86.718 Personal history of other venous thrombosis and embolism; I34.0 Nonrheumatic mitral (valve) insufficiency; G47.33 Obstructive sleep apnea (adult) (pediatric); Z99.89 Dependence on other enabling machines and devices; I25.10 Atherosclerotic heart disease of native coronary artery without angina pectoris; N13.30 Unspecified hydronephrosis

== ENCOUNTER → 2024-03-26 13:19 | Outpatient (BNVA) | payer MEDICARE, SELFPAY | PROVIDERS: PCP Internal Medicine; Visit Provider Internal Medicine | DX: D64.9 Anemia, unspecified (principal); I34.0 Nonrheumatic mitral (valve) insufficiency; I48.0 Paroxysmal atrial fibrillation; G47.33 Obstructive sleep apnea (adult) (pediatric); I25.10 Atherosclerotic heart disease of native coronary artery without angina pectoris; I77.810 Thoracic aortic ectasia; N18.4 Chronic kidney disease, stage 4 (severe); Z99.89 Dependence on other enabling machines and devices; Z86.718 Personal history of other venous thrombosis and embolism | CPT/HCPCS: 96127; 99212 ==

== ENCOUNTER 2024-03-28 13:32 | Outpatient (AMB) | payer MEDICARE, SELFPAY ==
--- NOTE | 2024-03-28 13:35 | A.OFFVIS_ITS ---
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 He is a patient of Dr. Feldman. He seen for the following urologic conditions - chronic hydronephrosis - lower urinary tract symptoms Follow-up trial of Flomax - did not really have much benefit Recent Lasix renogram - minimal activity from right kidney He would like to proceed with attempt at stenting to see if could regain any activity Chronic hydronephrosis Has had progressive medical renal disease last creatinine 2.3 has been in this range since 2021 Renal ultrasound showing right hydronephrosis with normal parenchyma Lasix renogram 03/18 minimal activity right side Lower urinary tract symptoms Progressive weakness of stream Feelings of incomplete emptying Flomax was not helpful [facility] Medical History Vertigo 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 Atherosclerotic cardiovascular disease Normally functioning cardiac pacemaker present Acute kidney injury Generalized anxiety disorder Osteoarthritis of knees, bilateral Obstructive sleep apnea (adult) (pediatric) Preoperative cardiovascular examination DVT (deep venous thrombosis) Nasal polyp Asthma Nonrheumatic mitral valve regurgitation Cardiomyopathy Cerebral infarction due to embolism of unspecified cerebral artery PVC (premature ventricular contraction) Anxiety Allergic rhinitis Insomnia Congestive heart failure Gastroesophageal reflux disease Impaired glucose tolerance Congestive heart failure Lupus anticoagulant positive Paroxysmal atrial fibrillation Hypercholesterolemia Surgical History H/O hernia repair Ventral hernia Status post mitral valve repair History of cardiac radiofrequency ablation (~03/16/21) Status post arthroscopy of left knee History of cardioversion (~01/17/20) S/P medial meniscectomy of left knee History of arthroscopy of left knee Hx of repair of right rotator cuff History of tonsillectomy Family History Father HTN (hypertension) CVA (cerebral vascular accident) Mother Skin cancer Maternal Uncle Colon cancer Son No problems noted. Daughter No problems noted. Family/Other Breast cancer Paternal Uncle Colon cancer Social History Housing: House Are you a primary patient care to a significant other at home: No Do you presently have visiting nurse or other home services: No Alcohol intake: never Patient Tobacco Use Status: Former Tobacco user Tobacco use type: Cigarette Years Smoked: 12 +/- e-Cigarette/Vaping Use: Never Used Second Hand Smoke Exposure: No service: No Current occupational status: retired Cognitive needs: No Hearing needs: No Vision needs: No Review of Systems Const Denies chills and Denies fever(s) Card Reports no additional complaints and Denies syncope Resp Denies cough GI Denies abdominal pain and Denies heartburn Reports as per HPI and Denies change in libido Neuro Denies syncope Psych Denies change in libido Endo Denies change in libido Physical Exam Const General: cooperative, healthy appearing, comfortable and no acute distress Orientation/consciousness: patient oriented x3 HEENT Face and sinus: Yes normal facial exam Mouth: moist mucous membranes Neck Neck: Yes normal visual inspection, Yes full ROM and Yes trachea midline Chest Chest palpation & inspection: normal inspection of the chest Resp Effort & Inspection: normal respiratory effort, able to speak in complete sentences and no respiratory distress GI Inspection: Yes normal to inspection Back/Spine/Pelvis Cervical Spine: normal cervical lordosis Thoracic/Lumbar Spine: thoracic and lumbar spine normal to inspection Skin General skin exam: no rashes or lesions noted Neuro General: patient oriented x3, gait normal, tone normal and moves all extremities Extrem General: Yes normal to inspection and Yes capillary refill normal Results AMB Urinalysis, Automated UA Leukoctes 0 Dilshad/uL Last Edit by RAEANN Raymundo on 03/28/24 13:54 UA Nitrite Negative Last Edit by RAEANN Raymundo on 03/28/24 13:54 UA Urobilinogen 0.2 mg/dL Last Edit by RAEANN Raymundo on 03/28/24 13:5 4 UA Protein 0 mg/dL Last Edit by RAEANN Raymundo on 03/28/24 13:54 UA pH 5.5 Last Edit by Bk Cagle [facility] on 03/28/24 13:54 UA Blood 0 Mark/uL [facility] Edit [facility] on 03/28/24 13:54 UA Specific [place] 1.025 Last Edit by Bk Cagle [facility] on 03/28/24 13: 54 UA Ketone Negative Last Edit by [facility] on 03/28/24 13:54 UA Bilirubin 0 mg/dL Last Edit [facility] on 03/28/24 13:54 UA Glucose 0 mg/dL Last Edit by [facility]k C[facility] on 03/28/24 13:54 Results Reviewed Results Reviewed: Laboratory Last Values Urine pH (Auto) 5.5 03/28/24 13:53 Specific [place] (Auto) 1.025 03/28/24 13:53 Urine Protein (Auto) 0 mg/dL 03/28/24 13:53 Glucose (UA)(Auto) 0 mg/dL 03/28/24 13:53 Urine Ketones (Auto) Negative 03/28/24 13:53 Urine Blood (Auto) 0 Mark/uL 03/28/24 13:53 Urine Nitrite (Auto) Negative 03/28/24 13:53 Urine Bilirubin (Auto) 0 mg/dL 03/28/24 13:53 Urine Urobilinogen (Auto) 0.2 mg/dL 03/28/24 13:53 Leukocyte Esterase (Auto) 0 Dilshad/uL 03/28/24 13:53 Assessment & Plan Assessment & Plan (1) Hydronephrosis: Code(s): N13.30 - Unspecified hydronephrosis Category: Medical Qualifiers: Hydronephrosis type: unspecified Qualified Code(s): N13.30 - Unspecified hydronephrosis (2) Weak urinary stream: Code(s): R39.12 - Poor urinary stream Category: Medical Plan Risks, benefits and alternatives to therapy were discussed. These include but are not limited to infection, bleeding, damage to local organs and tissues, need for further interventions. Anesthetic risks regarding cardiac arrhythmia, blood clots, and potential mortality were discussed. The patient understands the typical recovery time and the outpatient nature of the procedure. After consideration of these risks the patient gives full inform ed consent and they wish to move ahead with the procedure. Cystoscopy, right retrograde, right stent placement Orders: Orders AMB Urinalysis Automated Today Z13.9 - Encounter for screening, unspecified Patient Instructions: Imaging studies, laboratory and physical exam results were discussed and reviewed in detail. No major barriers to patient understanding were identified. An opportunity to ask questions regarding the treatment plan was provided. All questions were answered. The patient expressed understanding and agreement with the above treatment plan. The patient is aware they should contact our office by phone for worsening of their current condition or the appearance of new urologic symptoms. Compliance is encouraged with any medications and followup testing that is ordered. It is a privilege to participate in the urologic care of your patient. If you have any questions or concerns regarding treatment for the above conditions, or other urologic issues, please do not hesitate to contact me. The office telepho ne contact is [phone]. This note is constructed using voice recognition software. While every effort has been made to ensure accuracy cardiac nurse errors may have been included. Yours sincerely, Dr Antoine Kate MD, [facility] - Urology Providers of Expert, Compassionate Care for the Genitourinary System Coding Level of Care Code Est Pt Level 4 (00879) Diagnoses Hydronephrosis, unspecified hydronephrosis type N13.30 Hydronephrosis type: unspecified Weak urinary stream R39.12
--- OUTSIDE RECORDS SUMMARY | 2024-04-03 19:32 | XMS_ITS | Data Portability ---
Author Organization [facility], [facility], Primary Care [facility] Address [address] [facility] [address] [place] [address] Care Team Providers Care Pharmacy Manager Name Role Phone JORDON OROZCO Clinical Cardiac Electrophysiolo gist FRANCA VELA Label Cutter [phone] ИВАН YANES Primary Care Provider HAN JONES Cardiac Surgeon CRISTINA LEONARD Rock [employer]or Assessment Encounter Date Assessment Date Assessment LastModified by Organization Details LastModified Time 02/04/2022 02/04/2022 My assessment is that Mr. Quispe is doing beautifully. He is not having any A. fib whatsoever his pacemaker is working fine he looks great and his activity levels are increasing. At some point he should probably be able to come off of warfarin and go back on a baby aspirin. We are stopping his aspirin today. If he is A. fib free and given the fact that he has had appendage clipping as well I would feel safe keeping him off of anticoagulation. We can follow him along closely via his device. We will wait however for surgeon to determine when he can come off of Coumadin. In addition I would like to get him off the amiodarone at some point the future. We will wait to see him again in 4 months time and if he is AF free at that time we will consider stopping amiodarone. Again I did activate his atrial therapies. If he has A. fib going forward we could consider antiarrhythmic drug therapy. Would have to avoid class III agents given his renal dysfunction and 1? C agents given his underlying heart disease thus we would consider Multaq. He still could be a candidate for an ablation possibly even an AV son catheter ablation or direct A. fib and flutter ablation in the future. Not available 02/04/2022 17:10:52 05/27/2022 05/27/2022 It was a pleasur e to see Eliazar today in routine 6 month follow up and device interrogation. He has a very recent history, since 2020, of two ablations for AF and AFL, mitral valve repair/MAZE/LAAC, and dual chamber pacemaker implant for presumed sinus node dysfunction. Overall, he appears to be doing very well from an arrhythmia perspective. It is our assessment that he is low risk to come off anticoagulation given his surgical LAAC and no evidence of AF since his pacemaker was implanted. Per Dr. Orozco's assessment, at this time I will discontinue his Amiodarone. We will also confirm with his cardiac surgeon if he needs to remain on Coumadin from their perspective and if he no longer needs to be on Coumadin, we will discontinue this as well. I discussed his device interrogation with him in detail. He has a MDT Becky BARBER DR, implanted 11/27/2021. Presenting rhythm ApVs. Underlying rhythm sinus bradycardia. Battery longevity 13.2yrs to ADMINISTRATIVE ASSISTANT RECEPTIONIST. Device mode AAIR <=> DDDR 60-130 bpm. Lead parameters are stable. VESSEL OPERATOR <0.1%, AP 93.1%. No atrial or ventricular events. HF parameters are stable. Stable HR histograms. The following routine programming changes were made to update the device and preserve battery: Atrial and RV safety margins 2.0 to 1.5, RV amplitude 2V to 1.5V both to preserve battery, Non-comp A. pacing interval 300ms to 400ms, time zone corrected. No further programming changes were made. He will refer to his case management coordinator for any blood pressure control guidelines. He is currently only on Amlodipine 5mg daily and would like to see if he can be taken off this medication. To reiterate Dr. Orozco's overall plan with Eliazar moving forward: If he has A. fib going forward we could consider antiarrhythmic drug therapy. Would have to avoid class III agents given his renal dysfunction and 1? C agents given his underlying heart disease thus we would consider Multaq. He still could be a candidate for an ablation possibly even an AV son catheter ablation or direct A. fib and flutter ablation in the future. I asked that Eliazar return to the office in 6 months for routine follow up and device interrogation. Not available 05/27/2022 15:27:54 11/26/2022 11/26/2022 Mr. Jose Enrique tobias s seen today in follow up for his history of atrial fibrillation (s/p ablation 05/07/20, AFL ablation 03/16/21 and MAZE 11/12/21), high grade PVCs (s/p ablation 05/07/20) and dual chamber PPM. He also has a history of surgical left atrial appendage clipping and mitral valve repair 11/12/21. Overall he is doing well. He has not had any episodes of atrial fibrillation since our last office visit. Again he is status post surgical clipping of the left atrial appendage and is no longer on anticoagulation. His pacemaker does have afib alerts set to one hour. His interrogation today did show 3 episodes of nonsustained VT. 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 The other 2 episodes were in the daytime hours and were brief. His rates are rapid when he is in an SVT. He denies any symptoms of palpitations. His last echocardiogram showed an EF of 51%. He did have a cardiac catheterization prior to his mitral valve repair last year but I do not have a copy of that. I recommended a low-dose beta-juan such as nebivolol, however the patient has been intolerant of beta-blockers in the past and would like to hold off on starting any medications. I do think he would benefit from another echocardiogram and possibly a stress test. He is seeing his case management coordinator on December 02. The patient will bring this up with his case management coordinator and I will send him a copy of my note as well. If we continue to see episodes of NSVT, I would strongly encourage the patient to start low-dose nebivolol. I would note that his PVC counters are roughly 75/h which is less than 01/2000 a day. He did not have PVCs during our interrogation today, on his EKG or on auscultation. His device interrogation otherwise shows stable lead parameters and the battery is excellent. I asked the patient to contact us if he notes any irregular heartbeats, lightheadedness or near syncope. Otherwise we will see him back in the office in 6 months. Not available 11/26/2022 16:25:29 06/06/2023 06/06/2023 Mr. Jose Enrique gonzalez seen today in follow up for his history of atrial fibrillation (s/p ablation 05/07/20, AFL ablation 03/16/21 and MAZE 11/12/21), high grade PVCs (s/p ablation 05/07/20) and dual chamber PPM. He also has a history of surgical left atrial appendage clipping and mitral valve repair 11/12/21. His device interrogation today shows stable lead parameters. He has not had any atrial fibrillation. We did see 5 true episodes of nonsustained ventricular tachycardia on his interrogation. He did have a longer episode on May 30 that was 7 seconds in duration. He is without palpitations or near syncope. I previously recommended a beta-juan. However he has been intolerant to beta-blockers in the past. A recent echocardiogram in November of last year shows a preserved ejection fraction. He reportedly had a cardiac cath prior to his mitral valve surgery. I did recommend that he start a low-dose of nebivolol 2.5 mg daily today. Above was also reviewed with Dr. Orozco who agrees with starting nebivolol. He would also like genetics ordered. We reviewed a prior cardiac MRI from 2019 which did show patchy mid myocardial enhancement throughout the left ventricle which was nonspecific. Based on these findings, we are recommending a PET scan to rule out any active cardiac sarcoid. I will discuss this with the patient's case management coordinator to see if they can arrange for this where Mr. Quispe lives in [place]. We will await PET scan and genetics. I will see him back in the office in 6 months. I left a message on the patient's cell phone after our visit to discuss the above. I also left a message with his case management coordinator asking him to call me to discuss PET scan. Not available 06/08/2023 10:06:56 12/05/2023 12/05/2023 Mr. Jose Enrique gonzalez seen today in follow up for his history of atrial fibrillation (s/p ablation 05/07/20, AFL ablation 03/16/21 and MAZE 11/12/21), high grade PVCs (s/p ablation 05/07/20) and dual chamber PPM. He also has a history of surgical left atrial appendage clipping and mitral valve repair 11/12/21. My assessment is that he is stable from an arrhythmia standpoint. He is not having any significant episodes of atrial fibrillation. His A-fib alerts are set to 1 hour. His monitor is followed by his case management coordinator. He continues to have frequent PVCs as noted on his device interrogation today, roughly 4 to 5000/day. We also saw brief episodes of nonsustained VT. He did have 1 longer episode on September 20 that was 13 seconds in duration. He tells me he had an echocardiogram last week which we will obtain for our records. Recent PET scan did not show any evidence of inflammation, I would note that he had a cardiac catheterization prior to his valve surgery and did not have any significant coronary disease. Unfortunately, he does not tolerate beta-blockers. At this point, I will increase his base rate from 60-70 to try to suppress his ventricular ectopy. I have also asked him to take a magnesium supplement. We will obtain his recent echo from his case management coordinator office. His main concern is fatigue, anemia and chronic kidney disease. He has follow-up with nephrology next week. I have asked him to call us if he develops any palpitations. He has close follow-up with his case management coordinator. I would like to see him back in the office in 6 months. Not available 12/05/2023 16:23:52 Plan of Treatment Reminders Order Date Submit Date Provider Last Modified By Organization Details Last Modified Time Details Appointments EP Follow Up 45 2024 03:15P ARCHANA Banks Not available Not available Not available Lab None recorded. Referral None recorded. Procedures None recorded. Surgeries None recorded. Imaging electroca rdiogram 2021 022 In-House Results, For Internal Use Only, Do Not Delete/merge, [id number] 02/04/2022 17:06:11 electroca rdiogram 2022 023 In-House Results, For Internal Use Only, Do Not Delete/merge, [id number] 05/27/2022 15:29:01 electroca rdiogram 2022 023 In-House Results, For Internal Use Only, Do Not Delete/merge, [id number] 11/26/2022 16:14:21 electroca rdiogram 2023 024 In-House Results, For Internal Use Only, Do Not Delete/merge, [id number] 06/06/2023 16:39:34 electroca rdiogram 2023 024 In-House Results, For Internal Use Only, Do Not Delete/merge, [id number] 12/05/2023 16:24:44 Medication Orders None recorded. Patient TargetsNo targets recorded. Patient Instructions Encounter Date Encounter Id Patient Instructions Last Modified By Organization Details Last Modified Time 02/04/2022 [id number] I spent a total of {{# of minutes 75#}} minutes on the same date of service providing difi-mf-xybm and gbm-ypyg-ja-face patient care. Not available 02/04/2022 17:06:22 05/27/2022 [id number] - From an electrophysiology perspective, we feel it is low risk for you to discontinue taking Coumadin - We are STOPPING your Amiodarone - Please refer to your case management coordinator's recommendations regarding your blood pressure recommendations - Follow up in 6 months for routine follow up Not available 05/27/2022 14:36:02 I spent a total of {{# of minutes 25#}} minutes on the same date of service providing ypty-sf-wzqa and ihq-jlrw-sh-face patient care. Not available 05/27/2022 14:28:45 11/26/2022 [id number] I spent a total of {{# of minutes 35#}} minutes on the same date of service providing rrgx-rx-gcee and nqo-pdbj-bk-face patient care. Not available 11/26/2022 15:59:24 06/06/2023 [id number] I spent a total of {{# of minutes 35#}} minutes on the same date of service providing llzv-sr-vbdy and joh-qaql-vk-face patient care. Not available 06/06/2023 16:54:15 12/05/2023 [id number] I spent a total of {{# of minutes 35#}} minutes on the same date of service providing ugtc-ij-jdkz and xxs-ibwo-ya-face patient care. Not available 12/05/2023 16:23:56 Reason for Referral None Reported. Results Created Date Observation Date Name Description Value Unit Range Abnormal Flag Note LastModifiedBy Organization Detail LastModifiedTime 02/05/20 22 02/04/2022 elect rocar diogr am No observ ation record ed. In-House Results For Internal Use Only, Do Not Delete/merge, [id number] 02/04/2022 17:06:10 02/06/20 22 02/04/2022 US, echoc ardio gram, trans thora cic, compl ete No observ ation record ed. [email or web address] [facility] [address] [place], [address], 02/05/2022 14:18:08 03/23/20 22 03/21/2022 pacem kathy inter rogat ion (PROC ) No observ ation record ed. [email or web address] Not Available 03/23 12:18:08 04/06/20 22 03/29/2022 caro r monit or No observ ation record ed. [email or web address] Not Available 2021 13:52:07 05/27/19 23 05/27/2022 elect rocar diogr am No observ ation record ed. In-House Results For Internal Use Only, Do Not Delete/merge, [id number] 05/27/2022 15:25:52 05/27/19 elect rocar diogr am No observ ation record ed. [email or web address] Not Available 05/2022 14:03:56 05/28/19 23 05/27/2022 elect rocar diogr am No observ ation record ed. [email or web address] In-House Results For Internal Use Only, Do Not Delete/merge, [id number] 05/28/2022 11:23:34 05/28/19 23 05/27/2022 pacem kathy inter rogat ion (PROC ) No observ ation record ed. [email or web address] Not Available 2022 11:27:20 11/27/19 23 11/26/2022 elect rocar diogr am No observ ation record ed. [email or web address] In-House Results For Internal Use Only, Do Not Delete/merge, [id number] 11/26/2022 16:14:20 11/27/19 23 elect rocar diogr am No observ ation record ed. [email or web address] Not Available 10/2022 06:56:31 12/06/19 23 11/26/2022 devic e check (PROC ) No observ ation record ed. [email or web address] Not Available 2022 23:01:26 06/02/19 24 12/16/2022 trans -thor acic echoc ardio gram (TTE) (PROC ) No observ ation record ed. [facility] [address] [place] [address], [place], [address], 06/02/2023 13:58:09 06/06/19 24 06/06/2023 elect rocar diogr am No observ ation record ed. [email or web address] In-House Results For Internal Use Only, Do Not Delete/merge, [id number] 06/06/2023 16:39:33 06/06/19 24 elect rocar diogr am No observ ation record ed. Not Available 2023 16:43:35 06/19/19 24 06/08/2023 devic e check (PROC ) No observ ation record ed. [email or web address] Not Available 2023 11:37:54 06/22/19 24 06/22/2023 PET, heart No observ ation record ed. [email or web address] [facility] [address] [facility], [place], [address], 06/23/2023 09:16:18 12/05/19 24 12/05/2023 elect rocar diogr am No observ ation record ed. [email or web address] In-House Results For Internal Use Only, Do Not Delete/merge, [id number] 12/05/2023 16:25:03 12/05/19 24 elect rocar diogr am No observ ation record ed. Not Available 2023 16:25:04 12/06/19 24 11/29/2023 , echoc ardio gram No observ ation record ed. [email or web address] Not Available 10:41:26 12/11/19 24 12/05/2023 devic e check (PROC ) No observ ation record ed. [email or web address] Not Available 2023 12:43:00 02/04/2002/02/2024 remot e devic e inter rogat ion (PROC ) No observ ation record ed. [email or web address] Not Available 2023 12:22:39 02/04/2002/02/2024 remot e devic e inter rogat ion (PROC ) No observ ation record ed. [email or web address] Not Available 2023 12:23:29 Result Notes None recorded. Problems Name Problem SNOMED Code Status Onset Date Resolution Date Notes Provider Name and Address Organization Details Recorded Time Atrial flutter 6055492 Active Jane Watt null, [place] - [facility] 2 14:43:55 Persisten t atrial fibrillat ion 589659471 Active Janeyovani Watt null, [place] - [facility] 2 14:44:26 Rupture of tendon 642256930 Active Nontrauma tic L ankle Jane Watt null, [place] - [facility] 2 14:45:26 History of cardiover vita 787140569396 08 [facility] [place] [facility] 2 14:45:57 Cerebrova scular accident 930686160 Active Janeyovani Watt null, [place] - [facility] 2 14:46:07 Dyspnea 165437022 Active Janeyovani Watt null, [place] - [facility] 2 14:46:19 Insomnia 039251421 Active Janeyovani Watt null, [place] - [facility] 2 14:46:34 Nerve injury 78727305 Active Right Arm Jane Watt null, [place] - [facility] 2 14:47:21 Arthritis 2106193 Active Right Foot Jane Watt null, [facility] 2 14:47:56 Cardiac arrhythmi a 751958811 Active 2022 Arden Cosme null, [facility] 3 13:53:39 Palpitati ons 37336756 Active 2022 ARCHANA CARIAS [address] [place] [address], [place] [address], [facility] 3 14:57:10 Paroxysma l atrial fibrillat ion 602944034 Active [address] [place] [address], [place] [address], [facility] 3 14:59:34 Ventricul ar premature beats 23137901 Active [address] [place] [address], [place] [address], [facility] 3 14:59:56 Left atrial appendage absent 415530225 Active 2022 s/p clipping of GABRIEL at time of MV repair, 2021 ARCHANA Cooper [address] [place] [address], [place], [place], [address] [place] [address], [facility] 4 09:17:42 Left bundle branch hemiblock 2665562 Active 2022 ARCHANA CARIAS [address] [place] [address], [place], [place], [address] [place] [address], [facility] 3 15:03:55 Right bundle branch block AND left anterior fascicula r block 11114157 Active [address] [place] [address], [place], [place], [address] [place] [address], [facility] 3 15:26:05 Cardiac pacemaker in situ 520640040 Active DEVICE MODEL [id number] Becky? ? XT MRI DEVICE SERIAL NUMBER [id number] DEVICE TYPE Pacemaker DATE OF IMPLANT 28-Nov-19 22 pt transferr ed into 's remote clinic from [place] 12/13/2023 Phoebe Mccracken RN [address] [place] [address], [place], [address], [facility] 12:20:39 Nonsustai marcelo ventricul ar tachycard ia 827356565 Active 2023 ARCHANA Cooper [address] [place] [address], [place], [address], [place] [facility] 12:44:39 Problem Notes None recorded. Procedures Surgical History Date Name Laterality Status Provider Name and Address Organization Details Recorded Time 12/05/19 24 In-person Programming of Pacemaker: Dual Chamber CPT 70927,26 completed ARCHANA Cooper [address] [place] [address], [place], [address], [place] [facility] 12/05/2023 16:20:31 06/06/19 24 In-person Programming of Pacemaker: Dual Chamber CPT 99148,26 completed ARCHA[address] Cooper [address] [place] [address], [place], [address], [place] - [facility] 06/07/2023 12:27:03 11/27/19 23 In-person Programming of Pacemaker: Dual Chamber CPT 40370,26 completed ARCHANA Cooper [address] [place] [address], [place], [address], [place] - [facility] 11/26/2022 16:11:31 05/27/19 23 In-person Programming of Pacemaker: Dual Chamber CPT 94755,26 completed [address] CARIAS [address] [place] [address], [place], [address], [facility] 05/27/2022 15:17:02 04/25/19 23 Hernia repair: Incisional completed Jane Watt [place] - [facility] 12/05/2023 15:26:37 02/05/20 22 In-person Programming of Pacemaker: Dual Chamber CPT 03236,26 completed Jordon Orozco MD [address], [place], [address], [place] - [facility] 02/04/2022 17:05:28 11/28/19 22 cardiac pacemaker procedure completed Han Mills RN [address], [place], [address], [place] - [facility] 02/04/2022 16:16:27 11/13/19 22 Maze procedure completed Han Mills RN [address], [place], [address], [place] - [facility] 11/24/2021 13:27:31 11/13/19 22 atrial appendage excision completed Han Mills RN [address], [place], [address], [place] - [facility] 11/24/2021 13:27:59 04/25/19 22 Other completed Jane ALLEN - [facility] 12/05/2023 15:26:37 04/25/19 22 Pacemaker completed Jane ALLEN - [facility] 12/05/2023 15:26:37 03/16/20 21 catheter ablation of arrhythmogenic focus completed Jane [facility] 09/23/2021 14:50:10 05/07/19 21 catheter ablation of arrhythmogenic focus completed Jane [facility] 09/23/2021 14:49:31 05/07/19 21 catheter ablation of arrhythmogenic focus completed Jane ALLEN - [facility] 09/23/2021 14:49:45 04/25/19 21 Hernia repair: Inguinal completed Jane [facility] 12/05/2023 15:26:37 04/25/19 19 Cataract removal / Lens implant completed Jane [facility]ills [facility] 12/05/2023 15:26:37 04/25/19 13 operative procedure on cartilage completed Jane [facility] 09/23/2021 14:51:05 04/25/19 13 Shoulder joint surgery completed Jane Watt CT - [facility] 09/23/2021 14:51:34 04/25/19 13 Shoulder repair completed Jane Watt [place] [facility] 12/05/2023 15:26:37 04/25/19 02 LASIK completed Jane Watt CT - [facility] 12/05/2023 15:26:37 Tonsillectomy completed Jane Watt [place] - [facility] 09/23/2021 14:52:05 repair of mitral valve completed Han Mills, RN [address] [place] [address],[address], [place], [address], [place] - [facility] 11/24/2021 13:31:59 Imaging Results Imaging Date Name Status LastModified by Organization Details LastModified Time 02/04/2022 electrocardiogram completed In-Hous e Results For Internal Use Only, Do Not Delete/merge, [id number] 02/04/2022 17:06:10 02/04/2022 US, echocardiogram, transthoracic, complete completed [email or web address] [facility] [address] [facility], [place], [address], 02/05/2022 14:18:08 03/21/2022 pacemaker interrogation (PROC) completed [email or web address] Information not available 03/23/2022 12:18:08 03/29/2022 holter monitor completed [email or web address] Informatio n not available 04/09/2022 13:52:07 05/27/2022 electrocardiogram completed In-Hous e Results For Internal Use Only, Do Not Delete/merge, [id number] 05/27/2022 15:25:52 05/27/2022 electrocardiogram completed Infor mation not available 05/27/2022 14:03:56 05/27/2022 electrocardiogram completed [email or web address] In-Hous e Results For Internal Use Only, Do Not Delete/merge, [id number] 05/28/2022 11:23:34 05/27/2022 pacemaker interrogation (PROC) completed [email or web address] Information not available 05/28/2022 11:27:20 11/26/2022 electrocardiogram completed [email or web address] In-Hous e Results For Internal Use Only, Do Not Delete/merge, [id number] 11/26/2022 16:14:20 11/26/2022 electrocardiogram completed Infor mation not available 11/29/2022 06:56:31 11/26/2022 device check (PROC) completed [email or web address] Infor mation not available 12/05/2022 23:01:26 12/16/2022 trans-thoracic echocardiogram (TTE) (PROC) completed [email or web address] [facility] [address] [place] [address], [id number], 06/02/2023 13:58:09 06/06/2023 electrocardiogram completed [email or web address] In-Hous e Results For Internal Use Only, Do Not Delete/merge, [id number] 06/06/2023 16:39:33 06/06/2023 electrocardiogram completed [email or web address] Informa tion not available 06/06/2023 16:43:35 06/08/2023 device check (PROC) completed [email or web address] Infor mation not available 06/19/2023 11:37:54 06/22/2023 PET, heart completed [email or web address] [facility] [address] [place] [address] [address], [place], [address], 06/23/2023 09:16:18 12/05/2023 electrocardiogram completed [email or web address] In-Hous e Results For Internal Use Only, Do Not Delete/merge, [id number] 12/05/2023 16:25:03 12/05/2023 electrocardiogram completed Informa tion not available 12/05/2023 16:25:04 11/29/2023 US, echocardiogram completed [email or web address] Inf ormation not available 12/06/2023 10:41:26 12/05/2023 device check (PROC) completed API-440 Infor mation not available 12/11/2023 12:43:00 02/02/2024 remote device interrogation (PROC) completed API-440 Information not available 02/04/2024 12:22:39 02/02/2024 remote device interrogation (PROC) completed API-440 Information not available 02/04/2024 12:23:29 Procedure Notes None recorded. Medical Equipment None Reported. Allergies Allergen ID Allergen Name Allergen Category Reaction Reaction Severity Criticality Documentation Date Start Date Code Code System Note Provider Name and Address Organization Details Recorded Time 807322 metoprolo l Not available dizziness palpitati ons severe Not available Not available 09/23/2021 6918 Rx[facility] 2 14:56:20 216621 Substance with sulfonami de structure and antibacte rial mechanism of action (substanc e) medicatio n Not available Not available Not available 09/23/2021 04513 8003 SNOMED Unsur e Child moreland react ion Jane guajardo [facility] 2 14:57:02 208977 gabapenti n medicatio n other moderate Not available 02/04/2022 58525 RxNorm Beni ce & gate Han Mills RN [address], [place], [address], [facility] 2 16:11:28 [id number] Product containin g 3-hydroxy -3-methyl glutaryl- coenzyme A reductase inhibitor (product) medicatio n muscle cramps severe Not available 02/04/2022 94331 009 SNOMED Han Mills RN [address], [place], [address], [facility] 2 16:12:03 286356 amoxicill in medicatio n rash Not available Not available 11/26/2022 723 RxNorm David guajardo [facility] 3 15:16:47 Medications Name Sig Start Date Stop Date Status Note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 epicardial and endocardial ablation. He was seen at [facility] in April 2021. He denied any recurrence of arrhythmias or palpitations. He was using his cardia monitor daily which did not show any atrial fibrillation or rapid heartbeats. He reported occasional chest discomfort and we asked him to follow-up with his case management coordinator. We also felt he should have another echocardiogram given the prior findings of mitral regurgitation. He remains anticoagulated with Eliquis 5 mg twice a day.He wore a 3-day event monitor in June 2021. It was read as sinus rhythm with an average heart rate of 110, minimum heart rate 99, max heart rate 119. There is no evidence of atrial fibrillation or pauses. His PVC burden was 1.57%.He had an echocardiogram on 06/23/21. His EF was calculated to be 44% and there was a mildly decreased RV systolic function. His left atrium was severely dilated measuring 4.4 cm??. There was moderate MR.He was seen in the office on 09/28/21. 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 We recommended a repeat ablation. We attempted to prescribe Multaq but this was not covered by insurance and therefore placed him on a short course of amiodarone. A cardioversion was attempted in September 2021 and this was unsuccessful. He subsequently had a CESILIA which showed significant mitral regurgitation. On 11/12/2021 he underwent a mitral valve repair with a ring and also underwent a Maze procedure. I do not have all the details. He also had a clipping of his left atrial appendage. Apparently he did not have bypass or significant coronary artery disease. We thus canceled his ablative procedure. While he was in the hospital however he developed significant bradycardia. I am not sure whether this is sinus bradycardia or AV block. He does have right bundle branch block and left anterior hemiblock. I suspect it was sinus node dysfunction. He therefore had a pacemaker placed by Dr. Castillo Aguillon. This is a Medtronic dual-chamber unit which is an [employer] XT DR device. The device is programmed AAIR/DDDR 60-1 30. I would note that his activity level is improved dramatically. He has not had any detections of atrial fibrillation or flutter. His rate response parameters look perfectly program. I did activate atrial therapies on this visit. He was seen on May 27, 2022. He was feeling reasonably well. He remained active. At that visit we discontinued his amiodarone. We planned on confirming with his surgeon if he needed to remain on Coumadin. His device interrogation showed excellent battery longevity with stable lead parameters. No changes were made to his device. He was last seen in the office on November 26, 2022 and was feeling well. He noted he had symptoms of vertigo which resolved after stopping his amlodipine. His blood pressure readings at home were stable. Heart rate was good interrogation of his device showed 3 episodes of nonsustained VT. We noted that his EF was preserved. We recommended a low-dose beta-juan such as nebivolol but the patient declined giving his prior intolerance to beta-blockers. I felt he may benefit from an echo and a stress test and he had a follow-up with his case management coordinator. PVC counters showed 75/h. He had an echocardiogram on December 16, 2022. This showed an ejection fraction of 57% with mild to moderate mitral regurgitation. His most recent blood work on May 27, 2023 shows a creatinine of 1.82, potassium of 4.3, LDL of 61, total cholesterol 154 and HDL of 89. He was last seen in the office on June 06, 2023. He was feeling well and denied any cardiac symptoms of palpitations, syncope or near syncope. He was without chest pain or chest pressure. We recommended starting low-dose beta-juan for his episodes of nonsustained VT. Unfortunately he had been intolerant to beta-blockers in the past. We also recommended a PET scan to rule out cardiac sarcoid because a previous cardiac MRI did show some mid myocardial enhancement throughout the LV which was nonspecific. We also recommended genetic testing. He reported taking a statin a few days a week. Taking it daily had led to cramping. 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 Cardiac PET on June 20, 2023 was negative for any inflammation. He comes in today for follow-up. He tells me that he has been fatigued. He has been diagnosed with anemia. He also has chronic kidney disease. He recently had a renal ultrasound and has follow-up with nephrology next week. He tells me he also had an echocardiogram last week and we will be obtaining the results for our records. He denies chest pain, shortness of breath, palpitations, near-syncope or syncope. ARCHANA Cooper [address] [place], [place] [address]liz,[address] FLOOR, [place], [address], [facility] - [facility], [facility] 12/05/2023 16:24:46
--- OUTSIDE RECORDS SUMMARY | 2024-04-03 19:32 | XMS_ITS | Continuity of Care Document ---
Author Organization [facility] Address [address] [place] [address]- [facility] Name Relationship Address Phone SHIRA ONEAL mother Unknown Unavailable HAN ONEAL child Unknown Unavailable NORMA ONEAL child Unknown Unavailab le KIMMY ROGER Personal Relationship Unknown Unavailable Care Team Providers Care Crap Game Box Person Name Role Phone Gerda Feldman MD Primary Care Physician [phone] Encounter [facility] Date(s): 02/06/24 - 03/07/24 [facility] [address] [place] [address]- Encounter Type: Triage Allergies, Adverse Reactions, Alerts Substance Criticality Severity Reaction Reaction Severity Status metoprolol chest pain Active gabapentin Dizziness Active sulfa drugs unknown Active Crestor severe muscle cramps Active Immunizations Given and Recorded Vaccine Date Status Refusal Reason SARS-CoV-2 mRNA ([id number]) vax 08/07/21 Recorded influenza virus vaccine, inactivated 01/28/21 Eliceo rded influenza virus vaccine, inactivated 01/07/20 Eliceo rded influenza virus vaccine, inactivated 02/10/19 Eliceo rded influenza virus vaccine, inactivated 03/22/18 Eliceo rded influenza virus vaccine, inactivated 02/19/17 Eliceo rded influenza virus vaccine, inactivated 05/09/12 Eliceo rded SARS-CoV-2 (COVID-19) mRNA BNT-162b2 vac 01/28/21 Recorded SARS-CoV-2 (COVID-19) mRNA BNT-162b2 vac 07/27/20 Recorded SARS-CoV-2 (COVID-19) mRNA BNT-162b2 vac 07/06/20 Recorded zoster vaccine, inactivated 04/16/19 Recorded zoster vaccine, inactivated 02/10/19 Recorded pneumococcal 23-valent vaccine 04/16/19 Recorded pneumococcal 13-valent vaccine 03/22/18 Recorded tetanus-diphtheria toxoids (Td) 02/02/18 Recorded Tet/Diphth/Acel, Pertussis (oldterm) 12/23/06 Give n Medications acetaminophen 325 mg oral tablet 975 mg, By Mouth, 3 times a day, PRN, Refills 0, Maintenance, Pain , Moderate, 11/28/21 1:52:00 PM EDT, Partial fill upon patient request if the prescription is for a schedule II opioid drug. Start Date: 11/28/21 Status: Ordered Repeat number: 1 aspirin 81 mg oral delayed release tablet 1 tablet = 81 mg, By Mouth, Daily, 0 Refills, Maintenance, 10/29/21 12:33:00 PM EDT, Partial fill upon patient request if the prescription is for a schedule II opioid drug. Start Date: 10/29/21 Status: Ordered Repeat number: 1 Norvasc 5 mg oral tablet 5 mg, 1, tablet, By Mouth, Daily, Refills 0, Maintenance, 11/25/21 10:49:00 AM EDT, Partial fill uponpatient request if the prescription is for a schedule II opioid drug. Start Date: 11/25/21 Status: Ordered Repeat number: 1 oxyCODONE 5 mg oral tablet 5 mg, By Mouth, Once, PRN, # 7 tablet, Refills 0, Tot. Refills 0, Soft Stop, Pain , Moderate, 09/24/22 8:12:00 AM EDT, Route to Pharmacy Electronically, [facility], Partial fill upon patient request if the prescription is for a schedule II opioid drug., 188, cm, 09/24/22 7:20:00 EDT, Height, 85.3, kg, 09/24/22 7:20:00 EDT, Dry Weight Start Date: 09/24/22 Stop Date: 09/25/22 Status: Ordered Quantity: 7.0 Unit: tablet Repeat number: 1 Ventolin HFA 108 mcg/inh inhalation aerosol with adapter 2 puffs, Inhalation, Every 4 hours, PRN for wheezing, # 18 Gm, 0 Refills, Maintenance, 08/08/13 9:36:47 AM EDT, Aerosol Start Date: 08/08/13 Status: Ordered Quantity: 18.0 Unit: g Repeat number: 1 Vitamin C = 2,000 mg, By Mouth, Daily in AM, 0 Refills, Maintenance, 01/23/18 3:12:48 PM EDT Start Date: 01/23/18 Status: Ordered Repeat number: 1 Vitamin D3 oral tablet 1 tablet = 400 International_Units, By Mouth, Daily in AM, # 30 tablet, 0 Refills, Maintenance, 09/24/20 7:36:00 PM EDT, Tablet, Partial fill upon patient request if the prescription is for a schedule II opioid drug. Start Date: 09/24/20 Status: Ordered Quantity: 30.0 Unit: tablet Repeat number: 1 Problem List Condition Confirmation Course Effective Dates Status [facility] Informant Deep vein thrombosis (DVT) Confirmed Active Paroxysmal atrial fibrillation Confirmed Active Frequent PVCs Confirmed Active Social History Social History Type Response Smoking Status Former smoker; Tobac co user in household: No; Other: pt states he quit smoking at age 27; entered on: 02/18/14 Sex Sex Representation Male (finding) Implantable Device List Procedure Provider Procedure Date Device Type Site Repair Hernia Inguinal Laparoscopic Robb Huerta III, MD (Surgeon), [place] 09/29/20 Unknown Groin Right Device Identifier Serial Number Lot or Batch Number Manufacturing Date Expiration Date Distinct Identification Code MRI Safety Implantable Status Assigning Authority [id number] Unknown 12/20/24 Unknown Unknown Active GS1 Procedure Provider Procedure Date Device Type Site Repair Hernia Inguinal Laparoscopic Robb Huerta III, MD (Surgeon), [place] 09/29/20 Unknown Peritoneum Device Identifier Serial Number Lot or Batch Number Manufacturing Date Expiration Date Distinct Identification Code MRI Safety Implantable Status Assigning Authority [id number] Unknown [id number] Unknown 04/21/22 Unknown Unknown Active GS1 Procedure Provider Procedure Date Device Type Site Repair Hernia Inguinal Laparoscopic Robb Huerta III, MD (Surgeon), [place] 09/29/20 Unknown Groin Left Device Identifier Serial Number Lot or Batch Number Manufacturing Date Expiration Date Distinct Identification Code MRI Safety Implantable Status Assigning Authority [id number] Unknown [id number] Unknown 02/19/25 Unknown Unknown Active GS1 Patient Care team information Care Team Personnel Name: Daisy HODGSON, Denis Mascorro Position: [facility] Renal MD Member Role: Lifetime Consulting Physician Address: [address] [place] [address] [address] [place] [address]- Telecom: Name: Kayli Greene RN Position: [facility] RN Member Role: Primary Care Nurse Name: Grace Martinez RN Position: S RN Supv Member Role: Primary Care Nurse Name: Devorah Will RN Position: S RN Member Role: Primary Care Nurse Name: Pretty Harmon Position: S RN Supv Member Role: Primary Care Nurse Name: Frieda Granda RN Position: S RN Member Role: Primary Care Nurse Name: Hortensia Lagunas RN Position: [facility] ED RN W/OE and Tasks Member Role: Primary Care Nurse Name: Alvin Simon MD Position: [facility] Renal MD Member Role: Lifetime Consulting Physician Address: [address] [facility] [place] [address]- [employer] Tele[employer]: Name: Gerda Feldman MD Position: Reference Physician Member Role: PCP Address: [address] [place] [address] Telecom: Name: Erich Nguyễn MD Position: [facility] Renal MD Member Role: Lifetime Consulting Physician Address: [address] [facility] [place] [address]- Telecom: Name: Davi oRdriges RN Position: [facility] ED RN W/OE and Tasks Member Role: Primary Care Nurse Care Team Related Persons Name: HAN ONEAL Name: NORMA ONEAL Name: SHIRA ONEAL Insurance Providers Guarantor name: ROGER OENAL Health Plan Information #: 1 Payer: MEDICARE PART B OUTPT Member Number: NA Policy Number: NA Group Number: NA Health Plan Information #: 2 Payer: MEDEX Member Number: NA Policy Number: NA Group Number: NA
--- OUTSIDE RECORDS SUMMARY | 2024-04-03 19:32 | XMS_ITS | Continuity of Care Document ---
Author Organization [facility] Kim sukumar Address [address] [place] [address] [place] [address]- Care Team Providers Care Holter Technician Name Role Phone Po Gerda HODGSON Primary Care Physician [phone] Encounter [facility] Date(s): 02/03/24 - 03/04/24 [facility] [address] [place] [address] Drive [address] [place], [place] [address] Allergies, Adverse Reactions, Alerts Substance Reaction Severity Status metoprolol chest pain Active gabapentin Dizziness Active sulfa drugs unknown Active Crestor severe muscle cramps Active Immunizations Given and Recorded Vaccine Date Status Refusal Reason SARS-CoV-2 mRNA ([id number]) vax 08/07/21 Recorded influenza virus vaccine, inactivated [...] toxoids (Td) 02/02/18 Recorded Tet/Diphth/Acel, Pertussis (oldterm) 8/31/07 Give n Medications acetaminophen 325 mg oral tablet 975 mg, By Mouth, 3 times a day, PRN, Refills 0, Maintenance, Pain , Moderate, 11/28/21 13:52:00 EDT, Partial fill upon patient request if the prescription is for a schedule II opioid drug. Start Date: 11/28/21 Status: Ordered aspirin 81 mg oral delayed release tablet 1 tablet = 81 mg, By Mouth, Daily, 0 Refills, Maintenance, 10/29/21 12:33:00 EDT, Partial fill uponpatient request if the prescription is for a schedule II opioid drug. Start Date: 10/29/21 Status: Ordered Norvasc 5 mg oral tablet 5 mg, 1, tablet, By Mouth, Daily, Refills 0, Maintenance, 11/25/21 10:49:00 EDT, Partial fill upon patient request if the prescription is for a schedule II opioid drug. Start Date: 11/25/21 Status: Ordered oxyCODONE 5 mg oral tablet 5 mg, By Mouth, Once, PRN, # 7 tablet, Refills 0, Tot. Refills 0, Soft Stop, Pain , Moderate, 09/24/22 8:12:00 EDT, Route to Pharmacy Electronically, [facility], Partial fill upon patient request if the prescription is for a schedule II... Start Date: 09/24/22 Stop Date: 09/25/22 Status: Ordered Ventolin HFA 108 mcg/inh inhalation aerosol with adapter 2 puffs, Inhalation, Every 4 hours, PRN for wheezing, # 18 Gm, 0 Refills, Maintenance, 08/08/13 9:36:47 EDT, Aerosol Start Date: 08/08/13 Status: Ordered Vitamin C = 2,000 mg, By Mouth, Daily in AM, 0 Refills, Maintenance, 01/23/18 15:12:48 EDT Start Date: 01/23/18 Status: Ordered Vitamin D3 oral tablet 1 tablet = 400 International_Units, By Mouth, Daily in AM, # 30 tablet, 0 Refills, Maintenance, 09/24/20 19:36:00 EDT, Tablet, Partial fill upon patient request if the prescription is for a schedule II opioid drug. Start Date: 09/24/20 Status: Ordered Problem List Condition Confirmation Course Effective Dates Status [facility] Informant Deep vein thrombosis (DVT) Confirmed Active Paroxysmal atrial fibrillation Confirmed Active Frequent PVCs Confirmed Active Social History Social History Type Response Smoking Status Former smoker; Tobac co user in household: No; Other: pt states he quit smoking at age 27; entered on: 02/18/14 Sex Implantable Device List Procedure Provider Procedure Date Device Type Site Repair Hernia Inguinal Laparoscopic Robb Huerta III, MD (Surgeon), [place] 09/29/20 Unknown Groin Right Device Identifier Serial Number Lot or Batch Number Manufacturing Date Expiration Date Distinct Identification Code MRI Safety Implantable Status Assigning Authority [id number] Unknown 12/20/24 Unknown Unknown Active GS1 Procedure Provider Procedure Date Device Type Site Repair Hernia Inguinal Laparoscopic Robb Huerta III, MD (Surgeon), [place]rir[place]ian[place] 09/29/20 Unknown Peritoneum Device Identifier Serial Number Lot or Batch Number Manufacturing Date Expiration Date Distinct Identification Code MRI Safety Implantable Status Assigning Authority [id number] Unknown [id number] Unknown 04/21/22 Unknown Unknown Active GS1 Procedure Provider Procedure Date Device Type Site Repair Hernia Inguinal Laparoscopic Robb Huerta III, MD (Surgeon), [place] 09/29/20 Unknown Groin Left Device Identifier Serial Number Lot or Batch Number Manufacturing Date Expiration Date Distinct Identification Code MRI Safety Implantable Status Assigning Authority [id number] Unknown [id number] Unknown 02/19/25 Unknown Unknown Active GS1 Patient Care team information Care Team Personnel Name: Denis Villa MD Position: [facility] Renal MD Member Role: Lifetime Consulting Physician Address: Address: [address] [place] [address] [address] [facility] [place], [place] [address] Name: Kayli Greene RN Position: [facility] RN Member Role: Primary Care Nurse Name: Grace Martinez RN Position: [facility] RN Supv Member Role: Primary Care Nurse Name: Devorah Will RN Position: S RN Member Role: Primary Care Nurse Name: Pretty Harmon Position: [facility] RN Supv Member Role: Primary Care Nurse Name: Frieda Granda RN Position: S RN Member Role: Primary Care Nurse Name: Hortensia Lagunas RN Position: [facility] ED RN W/OE and Tasks Member Role: Primary Care Nurse Name: Alvin Simon MD Position: [facility] Renal MD Member Role: Lifetime Consulting Physician Address: Address: [facility] [address] [facility] [place] [address]- [place] Name: Gerda Feldman MD Position: Reference Physician Member Role: PCP Address: Address: [address] [place] [address]- [place] Name: Erich Nguyễn MD Position: [facility] Renal MD Member Role: Lifetime Consulting Physician Address: Address: [address] [facility] [address] [facility] [place] [address]- [place] Name: Davi Rodriges RN Position: S ED RN W/OE and Tasks Member Role: Primary Care Nurse Care Team Related Persons Name: HAN ONEAL Address: home [place] MD NARESH Name: NORMA ONEAL Address: home [address] [place] [address] Name: SHIRA ONEAL Address: [address] [place] [address]
--- OUTSIDE RECORDS SUMMARY | 2024-04-03 19:32 | XMS_ITS | Data Portability ---
Author Organization [facility], [address] Address [address] [place] [address] Assessment No assessment recorded. Plan of Treatment Reminders Order Date Submit Date Provider Last Modified By Organization Details Last Modified Time Details Appointments None recorded. Lab None recorded. Referral otolaryngol ogist referral - feeling dizzy and vertigo especially waking upm in morning. need further evaluation and treatment. 2022 023 [email or web address] [id number] Pratik Rivera MD, [address], [facility] [address], [place], [address], 3 12:51:32 Procedures None recorded. Surgeries None recorded. Imaging None recorded. Medication Orders meclizine 25 mg tablet 2022 023 [id number], [address], [place], [phone], 19:15:43 Patient TargetsNo targets recorded. Patient Instructions Encounter Date Encounter Id Patient Instructions Last Modified By Organization Details Last Modified Time 06/06/2022 [id number] dizziness: care instructions Not available 06/06/2022 19:14:50 Please drink plenty of fluids. See your doctor or go to the neared emergency department right away if you have vertigo and: -Have a new or severe headache -Have a fever higher than 100.4??F (38??C) -Start to see double or have trouble seeing clearly -Have trouble speaking or hearing -Have weakness in an arm or leg or your face droops to one side -Cannot walk on your own -Pass out -Have numbness or tingling -Have chest pain -Cannot stop vomiting Meclizine can cause drowsiness, if you take this medication please stay home and refrain from driving or operating heavy machinary. Please follow with your PCP in 2-3 days for recheck Please go to the emergency department if any symptoms worsen. The Gladis maneuvermay help alleviate some of your symptoms- please attempt this at home. Refer to the handout on the gladis maneuver. 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 need further evaluation and treatment. feeling dizzy and vertigo especially waking upm in morning. need further evaluation and treatment. Referring Physician: Leroy Crandall, Urgent Care, Encounter Date: 06/06/2022 Problems Name Problem SNOMED Code Status Onset Date Resolution Date Notes Provider Name and Address Organization Details Recorded Time Essential hypertension 47106886 Active 2022 IRIS COUVERTIE R null, PA - [facility] 3 18:23:37 Acute kidney injury 86024092 Active 2022 IRIS COUVERTIE R null, PA - [facility] 3 18:26:17 Insomnia 769559449 Active 2022 IRIS COUVERTIE R null, PA - [facility] 3 18:28:02 Problem Notes None recorded. Procedures Surgical History Date Name Laterality Status Provider Name and Address Organization Details Recorded Time hernia repair completed KRISHNA BLAIR PA - [facility] 06/06/2022 18:29:08 Imaging Results None recorded. Procedure Notes None recorded. Medical Equipment None Reported. Allergies Allergen ID Allergen Name Allergen Category Reaction Reaction Severity Criticality Documentation Date Start Date Code Code System Note Provider Name and Address Organization Details Recorded Time 243482 Substance with sulfonami de structure and antibacte rial mechanism of action (substanc e) medicatio n Not available Not available Not available 06/06/2022 71933 8003 SNOMED IRIS COUVERTIE R null, PA - [facility] 3 18:21:58 393514 gabapenti n medicatio n dizziness Not available Not available 06/06/2022 28590 RxNorm IRIS COUVERTIE R null, PA - [facility] 3 18:22:14 010250 rosuvasta tin medicatio n edema Not available Not available 06/06/2022 75541 2 RxNorm KRISHNA PEREZ [facility] Perry [facility] 3 18:22:51 Medications Name Sig Start Date Stop Date Status Note LastModified by Organization Details LastModified Time amoxicillin 500 mg capsule TAKE 1 CAPSULE BY MOUTH TWICE DAILY FOR 10 DAYS 06/06 completed Not Available Not Available Not Available carvedilol 6.25 mg tablet 06/06 completed Not Available Not Available Not Available carvedilol 12.5 mg tablet 06/06 completed Not Available Not Available Not Available amiodarone 200 mg tablet TAKE 2 TABLETS BY MOUTH TWICE DAILY 06/06 completed Not Available Not Available Not Available prednisone 20 mg tablet TAKE 3 TABLETS BY MOUTH DAILY active Not Available Not Available No t Available amlodipine 5 mg tablet TAKE 1 TABLET BY MOUTH DAILY active Not Available Not Available No t Available tramadol 50 mg tablet TAKE 1/2 TABLET BY MOUTH EVERY 8 HOURS NEEDED FOR MODERATE TO SEVERE PAIN 06/06 completed Not Available Not Available Not Available carvedilol 3.125 mg tablet TAKE 1 TABLET BY MOUTH TWICE DAILY 06/06 completed Not Available Not Available Not Available pravastatin 10 mg tablet TAKE 1 TABLET BY MOUTH AT BEDTIME active Not Available Not Available No t Available meclizine 25 mg tablet Take 1 tablet 3 times a day by oral route as needed for 7 days. 2022 active Not Available Not Available Not Avai lable pantoprazol e 40 mg tablet,mohit yed release TAKE 1 TABLET BY MOUTH DAILY BEFORE BREAKFAST 06/06 completed Not Available Not Available Not Available buspirone 10 mg tablet TAKE 1 TABLET BY MOUTH TWICE DAILY active Not Available Not Available No t Available warfarin 5 mg tablet TAKE 1 TABLET BY MOUTH DAILY DIRECTED BY [facility] 06/06 completed Not Available Not Available Not Available aspirin 81 mg chewable tablet CHEW 1 TABLET BY MOUTH EVERY DAY active Not Available Not Available No t Available montelukast 10 mg tablet TAKE 1 TABLET BY MOUTH AT BEDTIME NEEDED FOR RASH active Not Available Not Available No t Available furosemide 20 mg tablet TAKE 1 TABLET BY MOUTH TWICE DAILY 06/06 completed Not Available Not Available Not Available warfarin 1 mg tablet TAKE 1 TO 4 TABLETS BY MOUTH EVERY DAY DIRECTED BY [facility] 06/06 completed Not Available Not Available Not Available loratadine 10 mg tablet TAKE 1 TABLET BY MOUTH DAILY active Not Available Not Available No t Available enoxaparin 80 mg/0.8 mL subcutaneou s syringe INJECT THE CONTENTS OF 1 SYRINGE SUBCUTANE OUSLY AT 5 PM ON FRIDAY 11/10 AND AT 5 PM ON SATURDAY 11/11, THEN STOP 06/06 completed Not Available Not Available Not Available rosuvastati n 40 mg tablet TAKE 1 TABLET BY MOUTH EVERY DAY 06/06 completed Not Available Not Available Not Available Eliquis 5 mg tablet 06/06 completed Not Available Not Available Not Available Belsomra 5 mg tablet TAKE 1 TABLET BY MOUTH AT BEDTIME active Not Available Not Available No t Available BinaxNOW COVID-19 Ag Self Test kit TEST DIRECTED TODAY 06/06 completed Not Available Not Available Not Available Vitals Date Recorded Body height Body mass index (BMI) Body weight Oxygen saturation Oxygen saturation in Arterial blood by Pulse oximetry Heart rate Respiratory rate Body temperature Systolic blood pressure Diastolic blood pressure Provider Name and Address Organization Details Last Updated DateTime 3 187.96 cm 23.8 kg/m2 91758.5 9 g 100 % 100 % 66 /min 18 /min 97.8 [degF] 139 mm[Hg] 73 mm[Hg] KRISHNA Muñoz PA - [facility] 18:29:41 Social History Question Answer Notes LastModified by Organizat ion Details LastModified Time Tobacco Smoking Status Former Smoker KRISHNA guajardo PA - [facility] 06/06/2022 18:29:20 What Is Your Level Of Alcohol Consumption? None Information not available 06/06/2022 What Is Your Water Source? City Information not available 06/06/2022 What Is Your Heat Source? Gas Information not available 06/06/2022 Have You Had Direct Contact, Or Contact During Intimacy, With Monkeypox Rash, Scabs, Or Body Fluids From A Person With Monkeypox? No Information not available 06/06/2022 Do You Use Any Illicit Or Recreational Drugs? No Information not available 06/06/2022 Have You Recently Traveled Abroad? No Information not available 06/06/2022 Do You Or Have You Ever Used Any Other Forms Of Tobacco Or Nicotine? No Information not available 06/06/2022 Sex: Unknown Functional Status None recorded. Mental Status None recorded. Family History Nothing Reported. Medical History No medical history recorded. Past Encounters Encounter ID Performer Location Encounter Start Date Encounter Closed Date Diagnosis/Indication Diagnosis SNOMED-CT Code Diagnosis ICD10 Code [id number] [address] [facility] [place] [address] 08/09/2016 14:01:54 08/09/2016 14:52:09 [id number] [address] [facility] [place] [address] 10/08/2019 14:19:37 10/08/2019 15:46:07 [id number] [address] [facility] [place] [address] 06/14/2020 09:23:40 06/14/2020 09:53:11 [id number] [address] [facility] [place] [address] 12/31/2018 10:08:17 12/31/2018 10:53:03 [id number] [address] [facility] [place] [address] 06/08/2016 13:08:05 06/08/2016 14:31:43 [id number] [address] [facility] [place] [address] 01/02/2020 17:09:44 01/02/2020 17:43:56 [id number] [address] [facility] [place] [address] 12/18/2019 15:16:32 12/18/2019 16:26:12 [id number] [address] [facility] [place] [address] 02/19/2016 13:00:02 02/19/2016 13:30:00 [id number] [address] [place] [address] 02/13/2016 15:03:43 02/13/2016 15:28:04 [id number] [address] [place] [address] 12/08/2017 08:46:06 12/08/2017 09:50:44 [id number] [address] [place] [address] [place] [address] 03/16/2020 15:48:34 03/16/2020 18:27:17 [id number] [address] [place] [address] [place] [address] 04/30/2020 13:25:07 04/30/2020 18:52:16 [id number] [facility] JAIMES [address] [place] [address] 06/06/2022 15:33:14 07/27/2022 19:27:19 Left without being seen [id number] 9102 Z53.21 [id number] Leroy Crandall [place] [address] [place] [address] 06/06/2022 17:13:56 06/06/2022 19:17:57 Benign paroxysmal positional vertigo 099722820 H81.10 Health Concerns Section Related Observation LastModified by Organization Detai ls LastModified Time None Recorded Concern Status LastModified by Organization Details LastModified Time None Recorded Advance Directives Directive None Recorded Payers Encounter Date Sequence Insurance Name Policy Number Policy Shelby Covered Member ID Shelby Member ID Guarantor Name 03/16/2020 1 [place] [employer] Eliazar Quispe [id number] Eliazar Quispe 03/16/2020 2 [place] [id number] Eliazar Quispe [id number] Eliazar Quispe 04/30/2020 1 [place] [employer] Eliazar Quispe [id number] Eliazar Berriosinger 04/30/2020 2 [place] [id number] Eliazar Berriosinger [id number] Eliazar Berriosinger 06/14/2020 1 [place] [employer] [place] Eliazar Berriosinger [id number] Eliazar Dowlingnninger 06/14/2020 2 [place] [id number] Eliazar Berriosinger [id number] Eliazar Berriosinger 06/06/2022 1 [place] [employer] Eliazar Berriosinger [id number] Eliazar Berriosinger 06/06/2022 2 [place] [id number] Eliazar Berriosinger [id number] Eliazar Berriosinger 06/06/2022 1 [place] [employer] [place] Eliazar Quispe [id number] Eliazar Berriosinger 06/06/2022 2 [place] [id number] Eliazar Berriosinger [id number] Eliazar Quispe Notes Date Note Type Note Provider Name and Address Organization Details Recorded Time 06/06/2022 text/html CongestionReport ed bypatient.Notes:c/o vertigo after trying to get up this morning from his bed. got worried. also c/o nasal congestion with post nasal drip x 3 days. denies nay fever or fever with chills. no SOB or respiratory distress. Leroy Crandall NP [address] [place], [address], PA - [facility] 06/06/2022 19:16:09
--- OUTSIDE RECORDS SUMMARY | 2024-04-03 19:33 | XMS_ITS ---
Author Name [facility] Organization Unknown History of Medication Use Medication Directions Dispensed Refills Start Date End Date [facility] warfarin 5 mg tablet TAKE 1 TABLET BY MOUTH DAILY DIRECTED BY [facility]ADIN [facility]INIC 12/08/2023 completed warfarin 5 mg tablet TAKE 1 TABLET BY MOUTH DAILY DIRECTED BY [facility]MADIN [facility]INIC 12/08/2023 completed warfarin 5 mg tablet TAKE 1 TABLET BY MOUTH DAILY DIRECTED BY [facility]ADIN CLINIC 12/08/2023 completed warfarin 5 mg tablet TAKE 1 TABLET BY MOUTH DAILY DIRECTED BY [facility]MADIN CLINIC 12/08/2023 completed warfarin 5 mg tablet TAKE 1 TABLET BY MOUTH DAILY DIRECTED BY [facility]ADIN [facility]INIC 12/08/2023 completed warfarin 5 mg tablet TAKE 1 TABLET BY MOUTH DAILY DIRECTED BY [facility]ADIN CLINIC 12/08/2023 completed warfarin 5 mg tablet TAKE 1 TABLET BY MOUTH DAILY DIRECTED BY COUMADIN CLINIC 12/08/2023 completed buspirone 10 mg tablet TAKE 1 TABLET BY MOUTH TWICE DAILY 12/08/2023 completed buspirone 10 mg tablet TAKE 1 TABLET BY MOUTH TWICE DAILY 12/08/2023 completed buspirone 10 mg tablet TAKE 1 TABLET BY MOUTH TWICE DAILY 12/08/2023 completed buspirone 10 mg tablet TAKE 1 TABLET BY MOUTH TWICE DAILY 12/08/2023 completed buspirone 10 mg tablet TAKE 1 TABLET BY MOUTH TWICE DAILY 12/08/2023 completed buspirone 10 mg tablet TAKE 1 TABLET BY MOUTH TWICE DAILY 12/08/2023 completed buspirone 10 mg tablet TAKE 1 TABLET BY MOUTH TWICE DAILY 12/08/2023 completed amiodarone 200 mg tablet START TAKING 2 TABLETS ONCE A DAY 3 DAYS BEFORE CARDIOVERSION. REDUCE DOSE TO 1 TABLET (200 MG) ONCE A DAY AFTER CARDIOVERSION. 12/08/2023 active amiodarone 200 mg tablet START TAKING 2 TABLETS ONCE A DAY 3 DAYS BEFORE CARDIOVERSION. REDUCE DOSE TO 1 TABLET (200 MG) ONCE A DAY AFTER CARDIOVERSION. 12/08/2023 active amiodarone 200 mg tablet START TAKING 2 TABLETS ONCE A DAY 3 DAYS BEFORE CARDIOVERSION. REDUCE DOSE TO 1 TABLET (200 MG) ONCE A DAY AFTER CARDIOVERSION. 12/08/2023 active amiodarone 200 mg tablet START TAKING 2 TABLETS ONCE A DAY 3 DAYS BEFORE CARDIOVERSION. REDUCE DOSE TO 1 TABLET (200 MG) ONCE A DAY AFTER CARDIOVERSION. 12/08/2023 active amiodarone 200 mg tablet START TAKING 2 TABLETS ONCE A DAY 3 DAYS BEFORE CARDIOVERSION. REDUCE DOSE TO 1 TABLET (200 MG) ONCE A DAY AFTER CARDIOVERSION. 12/08/2023 active amiodarone 200 mg tablet START TAKING 2 TABLETS ONCE A DAY 3 DAYS BEFORE CARDIOVERSION. REDUCE DOSE TO 1 TABLET (200 MG) ONCE A DAY AFTER CARDIOVERSION. 12/08/2023 active amiodarone 200 mg tablet START TAKING 2 TABLETS ONCE A DAY 3 DAYS BEFORE CARDIOVERSION. REDUCE DOSE TO 1 TABLET (200 MG) ONCE A DAY AFTER CARDIOVERSION. 12/08/2023 active nebivolol 2.5 mg tablet TAKE 1 TABLET BY MOUTH EVERY DAY 12/08/2023 completed nebivolol 2.5 mg tablet TAKE 1 TABLET BY MOUTH EVERY DAY 12/08/2023 completed nebivolol 2.5 mg tablet TAKE 1 TABLET BY MOUTH EVERY DAY 12/08/2023 completed nebivolol 2.5 mg tablet TAKE 1 TABLET BY MOUTH EVERY DAY 12/08/2023 completed nebivolol 2.5 mg tablet TAKE 1 TABLET BY MOUTH EVERY DAY 12/08/2023 completed nebivolol 2.5 mg tablet TAKE 1 TABLET BY MOUTH EVERY DAY 12/08/2023 completed nebivolol 2.5 mg tablet TAKE 1 TABLET BY MOUTH EVERY DAY 12/08/2023 completed Belsomra 5 mg tablet TAKE 1 TABLET BY MOUTH AT BEDTIME/ NEEDED 12/08/2023 active Belsomra 5 mg tablet TAKE 1 TABLET BY MOUTH AT BEDTIME/ NEEDED 12/08/2023 active Belsomra 5 mg tablet TAKE 1 TABLET BY MOUTH AT BEDTIME/ NEEDED 12/08/2023 active Belsomra 5 mg tablet TAKE 1 TABLET BY MOUTH AT BEDTIME/ NEEDED 12/08/2023 active Belsomra 5 mg tablet TAKE 1 TABLET BY MOUTH AT BEDTIME/ NEEDED 12/08/2023 active Belsomra 5 mg tablet TAKE 1 TABLET BY MOUTH AT BEDTIME/ NEEDED 12/08/2023 active Belsomra 5 mg tablet TAKE 1 TABLET BY MOUTH AT BEDTIME/ NEEDED 12/08/2023 active oxycodone 5 mg tablet TAKE 1 TABLET BY MOUTH EVERY 6 HOURS NEEDED FOR PAIN FOR 5 DAYS 12/08/2023 completed oxycodone 5 mg tablet TAKE 1 TABLET BY MOUTH EVERY 6 HOURS NEEDED FOR PAIN FOR 5 DAYS 12/08/2023 completed oxycodone 5 mg tablet TAKE 1 TABLET BY MOUTH EVERY 6 HOURS NEEDED FOR PAIN FOR 5 DAYS 12/08/2023 completed oxycodone 5 mg tablet TAKE 1 TABLET BY MOUTH EVERY 6 HOURS NEEDED FOR PAIN FOR 5 DAYS 12/08/2023 completed oxycodone 5 mg tablet TAKE 1 TABLET BY MOUTH EVERY 6 HOURS NEEDED FOR PAIN FOR 5 DAYS 12/08/2023 completed oxycodone 5 mg tablet TAKE 1 TABLET BY MOUTH EVERY 6 HOURS NEEDED FOR PAIN FOR 5 DAYS 12/08/2023 completed oxycodone 5 mg tablet TAKE 1 TABLET BY MOUTH EVERY 6 HOURS NEEDED FOR PAIN FOR 5 DAYS 12/08/2023 completed furosemide 40 mg tablet 12/08/2023 completed furosemide 40 mg tablet 12/08/2023 completed furosemide 40 mg tablet 12/08/2023 completed furosemide 40 mg tablet 12/08/2023 completed furosemide 40 mg tablet 12/08/2023 completed furosemide 40 mg tablet 12/08/2023 completed furosemide 40 mg tablet 12/08/2023 completed carvedilol 3.125 mg tablet TAKE 1 TABLET BY MOUTH TWICE DAILY WITH FOOD OR MEAL 12/08/2023 completed carvedilol 3.125 mg tablet TAKE 1 TABLET BY MOUTH TWICE DAILY WITH FOOD OR MEAL 12/08/2023 completed carvedilol 3.125 mg tablet TAKE 1 TABLET BY MOUTH TWICE DAILY WITH FOOD OR MEAL 12/08/2023 completed carvedilol 3.125 mg tablet TAKE 1 TABLET BY MOUTH TWICE DAILY WITH FOOD OR MEAL 12/08/2023 completed carvedilol 3.125 mg tablet TAKE 1 TABLET BY MOUTH TWICE DAILY WITH FOOD OR MEAL 12/08/2023 completed carvedilol 3.125 mg tablet TAKE 1 TABLET BY MOUTH TWICE DAILY WITH FOOD OR MEAL 12/08/2023 completed carvedilol 3.125 mg tablet TAKE 1 TABLET BY MOUTH TWICE DAILY WITH FOOD OR MEAL 12/08/2023 completed ezetimibe 10 mg-simvastatin 10 mg tablet TAKE 1 TABLET BY MOUTH DAILY 12/08/2023 active ezetimibe 10 mg-simvastatin 10 mg tablet TAKE 1 TABLET BY MOUTH DAILY 12/08/2023 active ezetimibe 10 mg-simvastatin 10 mg tablet TAKE 1 TABLET BY MOUTH DAILY 12/08/2023 active ezetimibe 10 mg-simvastatin 10 mg tablet TAKE 1 TABLET BY MOUTH DAILY 12/08/2023 active ezetimibe 10 mg-simvastatin 10 mg tablet TAKE 1 TABLET BY MOUTH DAILY 12/08/2023 active ezetimibe 10 mg-simvastatin 10 mg tablet TAKE 1 TABLET BY MOUTH DAILY 12/08/2023 active ezetimibe 10 mg-simvastatin 10 mg tablet TAKE 1 TABLET BY MOUTH DAILY 12/08/2023 active prednisone 20 mg tablet TAKE 3 TABLETS BY MOUTH DAILY 12/08/2023 completed prednisone 20 mg tablet TAKE 3 TABLETS BY MOUTH DAILY 12/08/2023 completed prednisone 20 mg tablet TAKE 3 TABLETS BY MOUTH DAILY 12/08/2023 completed prednisone 20 mg tablet TAKE 3 TABLETS BY MOUTH DAILY 12/08/2023 completed prednisone 20 mg tablet TAKE 3 TABLETS BY MOUTH DAILY 12/08/2023 completed prednisone 20 mg tablet TAKE 3 TABLETS BY MOUTH DAILY 12/08/2023 completed prednisone 20 mg tablet TAKE 3 TABLETS BY MOUTH DAILY 12/08/2023 completed pravastatin 10 mg tablet TAKE 1 TABLET BY MOUTH AT BEDTIME 12/08/2023 completed pravastatin 10 mg tablet TAKE 1 TABLET BY MOUTH AT BEDTIME 12/08/2023 completed pravastatin 10 mg tablet TAKE 1 TABLET BY MOUTH AT BEDTIME 12/08/2023 completed pravastatin 10 mg tablet TAKE 1 TABLET BY MOUTH AT BEDTIME 12/08/2023 completed pravastatin 10 mg tablet TAKE 1 TABLET BY MOUTH AT BEDTIME 12/08/2023 completed pravastatin 10 mg tablet TAKE 1 TABLET BY MOUTH AT BEDTIME 12/08/2023 completed pravastatin 10 mg tablet TAKE 1 TABLET BY MOUTH AT BEDTIME 12/08/2023 completed oxycodone 5 mg capsule TAKE 1 CAPSULE BY MOUTH EVERY 4 HOURS NEEDED FOR MODERATE PAIN 12/08/2023 completed oxycodone 5 mg capsule TAKE 1 CAPSULE BY MOUTH EVERY 4 HOURS NEEDED FOR MODERATE PAIN 12/08/2023 completed oxycodone 5 mg capsule TAKE 1 CAPSULE BY MOUTH EVERY 4 HOURS NEEDED FOR MODERATE PAIN 12/08/2023 completed oxycodone 5 mg capsule TAKE 1 CAPSULE BY MOUTH EVERY 4 HOURS NEEDED FOR MODERATE PAIN 12/08/2023 completed oxycodone 5 mg capsule TAKE 1 CAPSULE BY MOUTH EVERY 4 HOURS NEEDED FOR MODERATE PAIN 12/08/2023 completed oxycodone 5 mg capsule TAKE 1 CAPSULE BY MOUTH EVERY 4 HOURS NEEDED FOR MODERATE PAIN 12/08/2023 completed oxycodone 5 mg capsule TAKE 1 CAPSULE BY MOUTH EVERY 4 HOURS NEEDED FOR MODERATE PAIN 12/08/2023 completed BinaxNOW COVID-19 Ag Self Test kit TEST DIRECTED TODAY 12/08/2023 completed BinaxNOW COVID-19 Ag Self Test kit TEST DIRECTED TODAY 12/08/2023 completed BinaxNOW COVID-19 Ag Self Test kit TEST DIRECTED TODAY 12/08/2023 completed BinaxNOW COVID-19 Ag Self Test kit TEST DIRECTED TODAY 12/08/2023 completed BinaxNOW COVID-19 Ag Self Test kit TEST DIRECTED TODAY 12/08/2023 completed BinaxNOW COVID-19 Ag Self Test kit TEST DIRECTED TODAY 12/08/2023 completed BinaxNOW COVID-19 Ag Self Test kit TEST DIRECTED TODAY 12/08/2023 completed amiodarone 100 mg tablet 1 TAB DAILY/ PO 12/08/2023 completed amiodarone 100 mg tablet 1 TAB DAILY/ PO 12/08/2023 completed amiodarone 100 mg tablet 1 TAB DAILY/ PO 12/08/2023 completed amiodarone 100 mg tablet 1 TAB DAILY/ PO 12/08/2023 completed amiodarone 100 mg tablet 1 TAB DAILY/ PO 12/08/2023 completed amiodarone 100 mg tablet 1 TAB DAILY/ PO 12/08/2023 completed amiodarone 100 mg tablet 1 TAB DAILY/ PO 12/08/2023 completed warfarin 1 mg tablet TAKE 1 TO 4 TABLETS BY MOUTH EVERY DAY DIRECTED BY ANTICOAGULATION CLINIC 12/08/2023 completed warfarin 1 mg tablet TAKE 1 TO 4 TABLETS BY MOUTH EVERY DAY DIRECTED BY ANTICOAGULATION CLINIC 12/08/2023 completed warfarin 1 mg tablet TAKE 1 TO 4 TABLETS BY MOUTH EVERY DAY DIRECTED BY ANTICOAGULATION CLINIC 12/08/2023 completed warfarin 1 mg tablet TAKE 1 TO 4 TABLETS BY MOUTH EVERY DAY DIRECTED BY ANTICOAGULATION CLINIC 12/08/2023 completed warfarin 1 mg tablet TAKE 1 TO 4 TABLETS BY MOUTH EVERY DAY DIRECTED BY ANTICOAGULATION CLINIC 12/08/2023 completed warfarin 1 mg tablet TAKE 1 TO 4 TABLETS BY MOUTH EVERY DAY DIRECTED BY ANTICOAGULATION CLINIC 12/08/2023 completed warfarin 1 mg tablet TAKE 1 TO 4 TABLETS BY MOUTH EVERY DAY DIRECTED BY ANTICOAGULATION CLINIC 12/08/2023 completed zolpidem 10 mg tablet Take as needed by oral route for 90 days. 12/08/2023 active zolpidem 10 mg tablet Take as needed by oral route for 90 days. 12/08/2023 active zolpidem 10 mg tablet Take as needed by oral route for 90 days. 12/08/2023 active zolpidem 10 mg tablet Take as needed by oral route for 90 days. 12/08/2023 active zolpidem 10 mg tablet Take as needed by oral route for 90 days. 12/08/2023 active zolpidem 10 mg tablet Take as needed by oral route for 90 days. 12/08/2023 active zolpidem 10 mg tablet Take as needed by oral route for 90 days. 12/08/2023 active azithromycin 250 mg tablet TAKE DIRECTED ON PACKAGE 12/08/2023 completed azithromycin 250 mg tablet TAKE DIRECTED ON PACKAGE 12/08/2023 completed azithromycin 250 mg tablet TAKE DIRECTED ON PACKAGE 12/08/2023 completed azithromycin 250 mg tablet TAKE DIRECTED ON PACKAGE 12/08/2023 completed azithromycin 250 mg tablet TAKE DIRECTED ON PACKAGE 12/08/2023 completed azithromycin 250 mg tablet TAKE DIRECTED ON PACKAGE 12/08/2023 completed azithromycin 250 mg tablet TAKE DIRECTED ON PACKAGE 12/08/2023 completed Multaq 400 mg tablet Begin taking 1 tablet by mouth twice a day 3 days before cardioversion. Continue taking twice a day after cardioversion 12/08/2023 completed Multaq 400 mg tablet Begin taking 1 tablet by mouth twice a day 3 days before cardioversion. Continue taking twice a day after cardioversion 12/08/2023 completed Multaq 400 mg tablet Begin taking 1 tablet by mouth twice a day 3 days before cardioversion. Continue taking twice a day after cardioversion 12/08/2023 completed Multaq 400 mg tablet Begin taking 1 tablet by mouth twice a day 3 days before cardioversion. Continue taking twice a day after cardioversion 12/08/2023 completed Multaq 400 mg tablet Begin taking 1 tablet by mouth twice a day 3 days before cardioversion. Continue taking twice a day after cardioversion 12/08/2023 completed Multaq 400 mg tablet Begin taking 1 tablet by mouth twice a day 3 days before cardioversion. Continue taking twice a day after cardioversion 12/08/2023 completed Multaq 400 mg tablet Begin taking 1 tablet by mouth twice a day 3 days before cardioversion. Continue taking twice a day after cardioversion 12/08/2023 completed albuterol sulfate HFA 90 mcg/actuation aerosol inhaler INHALE 2 PUFFS INTO THE LUNGS EVERY 4 HOURS NEEDED FOR BRONCHOSPASM 12/08/2023 completed albuterol sulfate HFA 90 mcg/actuation aerosol inhaler INHALE 2 PUFFS INTO THE LUNGS EVERY 4 HOURS NEEDED FOR BRONCHOSPASM 12/08/2023 completed albuterol sulfate HFA 90 mcg/actuation aerosol inhaler INHALE 2 PUFFS INTO THE LUNGS EVERY 4 HOURS NEEDED FOR BRONCHOSPASM 12/08/2023 completed albuterol sulfate HFA 90 mcg/actuation aerosol inhaler INHALE 2 PUFFS INTO THE LUNGS EVERY 4 HOURS NEEDED FOR BRONCHOSPASM 12/08/2023 completed albuterol sulfate HFA 90 mcg/actuation aerosol inhaler INHALE 2 PUFFS INTO THE LUNGS EVERY 4 HOURS NEEDED FOR BRONCHOSPASM 12/08/2023 completed albuterol sulfate HFA 90 mcg/actuation aerosol inhaler INHALE 2 PUFFS INTO THE LUNGS EVERY 4 HOURS NEEDED FOR BRONCHOSPASM 12/08/2023 completed albuterol sulfate HFA 90 mcg/actuation aerosol inhaler INHALE 2 PUFFS INTO THE LUNGS EVERY 4 HOURS NEEDED FOR BRONCHOSPASM 12/08/2023 completed tramadol 50 mg tablet TAKE 1/2 TABLET BY MOUTH EVERY 8 HOURS NEEDED FOR MODERATE TO SEVERE PAIN 12/08/2023 completed tramadol 50 mg tablet TAKE 1/2 TABLET BY MOUTH EVERY 8 HOURS NEEDED FOR MODERATE TO SEVERE PAIN 12/08/2023 completed tramadol 50 mg tablet TAKE 1/2 TABLET BY MOUTH EVERY 8 HOURS NEEDED FOR MODERATE TO SEVERE PAIN 12/08/2023 completed tramadol 50 mg tablet TAKE 1/2 TABLET BY MOUTH EVERY 8 HOURS NEEDED FOR MODERATE TO SEVERE PAIN 12/08/2023 completed tramadol 50 mg tablet TAKE 1/2 TABLET BY MOUTH EVERY 8 HOURS NEEDED FOR MODERATE TO SEVERE PAIN 12/08/2023 completed tramadol 50 mg tablet TAKE 1/2 TABLET BY MOUTH EVERY 8 HOURS NEEDED FOR MODERATE TO SEVERE PAIN 12/08/2023 completed tramadol 50 mg tablet TAKE 1/2 TABLET BY MOUTH EVERY 8 HOURS NEEDED FOR MODERATE TO SEVERE PAIN 12/08/2023 completed loratadine 10 mg tablet TAKE 1 TABLET BY MOUTH DAILY 12/08/2023 completed loratadine 10 mg tablet TAKE 1 TABLET BY MOUTH DAILY 12/08/2023 completed loratadine 10 mg tablet TAKE 1 TABLET BY MOUTH DAILY 12/08/2023 completed loratadine 10 mg tablet TAKE 1 TABLET BY MOUTH DAILY 12/08/2023 completed loratadine 10 mg tablet TAKE 1 TABLET BY MOUTH DAILY 12/08/2023 completed loratadine 10 mg tablet TAKE 1 TABLET BY MOUTH DAILY 12/08/2023 completed loratadine 10 mg tablet TAKE 1 TABLET BY MOUTH DAILY 12/08/2023 completed enoxaparin 80 mg/0.8 mL subcutaneous syringe INJECT THE CONTENTS OF 1 SYRINGE SUBCUTANEOUSLY AT 5 PM ON FRIDAY 11/10 AND AT 5 PM ON SATURDAY 11/11, THEN STOP 12/08/2023 completed enoxaparin 80 mg/0.8 mL subcutaneous syringe INJECT THE CONTENTS OF 1 SYRINGE SUBCUTANEOUSLY AT 5 PM ON FRIDAY 11/10 AND AT 5 PM ON SATURDAY 11/11, THEN STOP 12/08/2023 completed enoxaparin 80 mg/0.8 mL subcutaneous syringe INJECT THE CONTENTS OF 1 SYRINGE SUBCUTANEOUSLY AT 5 PM ON FRIDAY 11/10 AND AT 5 PM ON SATURDAY 11/11, THEN STOP 12/08/2023 completed enoxaparin 80 mg/0.8 mL subcutaneous syringe INJECT THE CONTENTS OF 1 SYRINGE SUBCUTANEOUSLY AT 5 PM ON FRIDAY 11/10 AND AT 5 PM ON SATURDAY 11/11, THEN STOP 12/08/2023 completed enoxaparin 80 mg/0.8 mL subcutaneous syringe INJECT THE CONTENTS OF 1 SYRINGE SUBCUTANEOUSLY AT 5 PM ON FRIDAY 11/10 AND AT 5 PM ON SATURDAY 11/11, THEN STOP 12/08/2023 completed enoxaparin 80 mg/0.8 mL subcutaneous syringe INJECT THE CONTENTS OF 1 SYRINGE SUBCUTANEOUSLY AT 5 PM ON FRIDAY 11/10 AND AT 5 PM ON SATURDAY 11/11, THEN STOP 12/08/2023 completed enoxaparin 80 mg/0.8 mL subcutaneous syringe INJECT THE CONTENTS OF 1 SYRINGE SUBCUTANEOUSLY AT 5 PM ON FRIDAY 11/10 AND AT 5 PM ON SATURDAY 11/11, THEN STOP 12/08/2023 completed aspirin 81 mg chewable tablet CHEW 1 TABLET BY MOUTH EVERY DAY 12/08/2023 active aspirin 81 mg chewable tablet CHEW 1 TABLET BY MOUTH EVERY DAY 12/08/2023 active aspirin 81 mg chewable tablet CHEW 1 TABLET BY MOUTH EVERY DAY 12/08/2023 active aspirin 81 mg chewable tablet CHEW 1 TABLET BY MOUTH EVERY DAY 12/08/2023 active aspirin 81 mg chewable tablet CHEW 1 TABLET BY MOUTH EVERY DAY 12/08/2023 active aspirin 81 mg chewable tablet CHEW 1 TABLET BY MOUTH EVERY DAY 12/08/2023 active aspirin 81 mg chewable tablet CHEW 1 TABLET BY MOUTH EVERY DAY 12/08/2023 active benzonatate 100 mg capsule TAKE 1 CAPSULE BY MOUTH 2 TO 3 TIMES A DAY NEEDED FOR COUGH 12/08/2023 completed benzonatate 100 mg capsule TAKE 1 CAPSULE BY MOUTH 2 TO 3 TIMES A DAY NEEDED FOR COUGH 12/08/2023 completed benzonatate 100 mg capsule TAKE 1 CAPSULE BY MOUTH 2 TO 3 TIMES A DAY NEEDED FOR COUGH 12/08/2023 completed benzonatate 100 mg capsule TAKE 1 CAPSULE BY MOUTH 2 TO 3 TIMES A DAY NEEDED FOR COUGH 12/08/2023 completed benzonatate 100 mg capsule TAKE 1 CAPSULE BY MOUTH 2 TO 3 TIMES A DAY NEEDED FOR COUGH 12/08/2023 completed benzonatate 100 mg capsule TAKE 1 CAPSULE BY MOUTH 2 TO 3 TIMES A DAY NEEDED FOR COUGH 12/08/2023 completed benzonatate 100 mg capsule TAKE 1 CAPSULE BY MOUTH 2 TO 3 TIMES A DAY NEEDED FOR COUGH 12/08/2023 completed amlodipine 5 mg tablet TAKE 1 TABLET BY MOUTH DAILY 12/08/2023 completed amlodipine 5 mg tablet TAKE 1 TABLET BY MOUTH DAILY 12/08/2023 completed amlodipine 5 mg tablet TAKE 1 TABLET BY MOUTH DAILY 12/08/2023 completed amlodipine 5 mg tablet TAKE 1 TABLET BY MOUTH DAILY 12/08/2023 completed amlodipine 5 mg tablet TAKE 1 TABLET BY MOUTH DAILY 12/08/2023 completed amlodipine 5 mg tablet TAKE 1 TABLET BY MOUTH DAILY 12/08/2023 completed amlodipine 5 mg tablet TAKE 1 TABLET BY MOUTH DAILY 12/08/2023 completed pantoprazole 40 mg tablet,delayed release TAKE 1 TABLET BY MOUTH DAILY BEFORE BREAKFAST 12/08/2023 completed pantoprazole 40 mg tablet,delayed release TAKE 1 TABLET BY MOUTH DAILY BEFORE BREAKFAST 12/08/2023 completed pantoprazole 40 mg tablet,delayed release TAKE 1 TABLET BY MOUTH DAILY BEFORE BREAKFAST 12/08/2023 completed pantoprazole 40 mg tablet,delayed release TAKE 1 TABLET BY MOUTH DAILY BEFORE BREAKFAST 12/08/2023 completed pantoprazole 40 mg tablet,delayed release TAKE 1 TABLET BY MOUTH DAILY BEFORE BREAKFAST 12/08/2023 completed pantoprazole 40 mg tablet,delayed release TAKE 1 TABLET BY MOUTH DAILY BEFORE BREAKFAST 12/08/2023 completed pantoprazole 40 mg tablet,delayed release TAKE 1 TABLET BY MOUTH DAILY BEFORE BREAKFAST 12/08/2023 completed furosemide 20 mg tablet TAKE 1 TABLET BY MOUTH NEEDED 12/08/2023 completed furosemide 20 mg tablet TAKE 1 TABLET BY MOUTH NEEDED 12/08/2023 completed furosemide 20 mg tablet TAKE 1 TABLET BY MOUTH NEEDED 12/08/2023 completed furosemide 20 mg tablet TAKE 1 TABLET BY MOUTH NEEDED 12/08/2023 completed furosemide 20 mg tablet TAKE 1 TABLET BY MOUTH NEEDED 12/08/2023 completed furosemide 20 mg tablet TAKE 1 TABLET BY MOUTH NEEDED 12/08/2023 completed furosemide 20 mg tablet TAKE 1 TABLET BY MOUTH NEEDED 12/08/2023 completed montelukast 10 mg tablet TAKE 1 TABLET BY MOUTH AT BEDTIME NEEDED FOR RASH 12/08/2023 completed montelukast 10 mg tablet TAKE 1 TABLET BY MOUTH AT BEDTIME NEEDED FOR RASH 12/08/2023 completed montelukast 10 mg tablet TAKE 1 TABLET BY MOUTH AT BEDTIME NEEDED FOR RASH 12/08/2023 completed montelukast 10 mg tablet TAKE 1 TABLET BY MOUTH AT BEDTIME NEEDED FOR RASH 12/08/2023 completed montelukast 10 mg tablet TAKE 1 TABLET BY MOUTH AT BEDTIME NEEDED FOR RASH 12/08/2023 completed montelukast 10 mg tablet TAKE 1 TABLET BY MOUTH AT BEDTIME NEEDED FOR RASH 12/08/2023 completed montelukast 10 mg tablet TAKE 1 TABLET BY MOUTH AT BEDTIME NEEDED FOR RASH 12/08/2023 completed carvedilol 6.25 mg tablet 12/08/2023 completed carvedilol 6.25 mg tablet 12/08/2023 completed carvedilol 6.25 mg tablet 12/08/2023 completed carvedilol 6.25 mg tablet 12/08/2023 completed carvedilol 6.25 mg tablet 12/08/2023 completed carvedilol 6.25 mg tablet 12/08/2023 completed carvedilol 6.25 mg tablet 12/08/2023 completed meclizine 25 mg tablet TAKE 1 TABLET BY MOUTH TWICE DAILY NEEDED FOR DIZZINESS 12/08/2023 complet ed meclizine 25 mg tablet TAKE 1 TABLET BY MOUTH TWICE DAILY NEEDED FOR DIZZINESS 12/08/2023 complet ed meclizine 25 mg tablet TAKE 1 TABLET BY MOUTH TWICE DAILY NEEDED FOR DIZZINESS 12/08/2023 complet ed meclizine 25 mg tablet TAKE 1 TABLET BY MOUTH TWICE DAILY NEEDED FOR DIZZINESS 12/08/2023 complet ed meclizine 25 mg tablet TAKE 1 TABLET BY MOUTH TWICE DAILY NEEDED FOR DIZZINESS 12/08/2023 complet ed meclizine 25 mg tablet TAKE 1 TABLET BY MOUTH TWICE DAILY NEEDED FOR DIZZINESS 12/08/2023 complet ed meclizine 25 mg tablet TAKE 1 TABLET BY MOUTH TWICE DAILY NEEDED FOR DIZZINESS 12/08/2023 complet ed amoxicillin 500 mg capsule TAKE 1 CAPSULE BY MOUTH TWICE DAILY FOR 10 DAYS 12/08/2023 completed amoxicillin 500 mg capsule TAKE 1 CAPSULE BY MOUTH TWICE DAILY FOR 10 DAYS 12/08/2023 completed amoxicillin 500 mg capsule TAKE 1 CAPSULE BY MOUTH TWICE DAILY FOR 10 DAYS 12/08/2023 completed amoxicillin 500 mg capsule TAKE 1 CAPSULE BY MOUTH TWICE DAILY FOR 10 DAYS 12/08/2023 completed amoxicillin 500 mg capsule TAKE 1 CAPSULE BY MOUTH TWICE DAILY FOR 10 DAYS 12/08/2023 completed amoxicillin 500 mg capsule TAKE 1 CAPSULE BY MOUTH TWICE DAILY FOR 10 DAYS 12/08/2023 completed amoxicillin 500 mg capsule TAKE 1 CAPSULE BY MOUTH TWICE DAILY FOR 10 DAYS 12/08/2023 completed clarithromycin 500 mg tablet TAKE 1 TABLET BY MOUTH TWICE DAILY UNTIL ALL TAKEN 12/08/2023 completed clarithromycin 500 mg tablet TAKE 1 TABLET BY MOUTH TWICE DAILY UNTIL ALL TAKEN 12/08/2023 completed clarithromycin 500 mg tablet TAKE 1 TABLET BY MOUTH TWICE DAILY UNTIL ALL TAKEN 12/08/2023 completed clarithromycin 500 mg tablet TAKE 1 TABLET BY MOUTH TWICE DAILY UNTIL ALL TAKEN 12/08/2023 completed clarithromycin 500 mg tablet TAKE 1 TABLET BY MOUTH TWICE DAILY UNTIL ALL TAKEN 12/08/2023 completed clarithromycin 500 mg tablet TAKE 1 TABLET BY MOUTH TWICE DAILY UNTIL ALL TAKEN 12/08/2023 completed clarithromycin 500 mg tablet TAKE 1 TABLET BY MOUTH TWICE DAILY UNTIL ALL TAKEN 12/08/2023 completed Eliquis 5 mg tablet Take 1 tablet twice a day by oral route for 90 days. 12/08/2023 completed Eliquis 5 mg tablet Take 1 tablet twice a day by oral route for 90 days. 12/08/2023 completed Eliquis 5 mg tablet Take 1 tablet twice a day by oral route for 90 days. 12/08/2023 completed Eliquis 5 mg tablet Take 1 tablet twice a day by oral route for 90 days. 12/08/2023 completed Eliquis 5 mg tablet Take 1 tablet twice a day by oral route for 90 days. 12/08/2023 completed Eliquis 5 mg tablet Take 1 tablet twice a day by oral route for 90 days. 12/08/2023 completed Eliquis 5 mg tablet Take 1 tablet twice a day by oral route for 90 days. 12/08/2023 completed rosuvastatin 40 mg tablet TAKE 1 TABLET BY MOUTH EVERY DAY 12/08/2023 completed rosuvastatin 40 mg tablet TAKE 1 TABLET BY MOUTH EVERY DAY 12/08/2023 completed rosuvastatin 40 mg tablet TAKE 1 TABLET BY MOUTH EVERY DAY 12/08/2023 completed rosuvastatin 40 mg tablet TAKE 1 TABLET BY MOUTH EVERY DAY 12/08/2023 completed rosuvastatin 40 mg tablet TAKE 1 TABLET BY MOUTH EVERY DAY 12/08/2023 completed rosuvastatin 40 mg tablet TAKE 1 TABLET BY MOUTH EVERY DAY 12/08/2023 completed rosuvastatin 40 mg tablet TAKE 1 TABLET BY MOUTH EVERY DAY 12/08/2023 completed carvedilol 12.5 mg tablet Take 1 tablet twice a day by oral route for 90 days. 12/08/2023 completed carvedilol 12.5 mg tablet Take 1 tablet twice a day by oral route for 90 days. 12/08/2023 completed carvedilol 12.5 mg tablet Take 1 tablet twice a day by oral route for 90 days. 12/08/2023 completed carvedilol 12.5 mg tablet Take 1 tablet twice a day by oral route for 90 days. 12/08/2023 completed carvedilol 12.5 mg tablet Take 1 tablet twice a day by oral route for 90 days. 12/08/2023 completed carvedilol 12.5 mg tablet Take 1 tablet twice a day by oral route for 90 days. 12/08/2023 completed carvedilol 12.5 mg tablet Take 1 tablet twice a day by oral route for 90 days. 12/08/2023 completed busPIRone HCl 10 MG busPIRone HCl 10 MG 08/20/19 active Carvedilol 3.125 MG Carvedilol 3.125 MG 08/20/19 active apixaban (ELIQUIS) 2.5 mg tablet Take 2.5 mg by mouth 2 (two) times a day. 08/18/2022 active carvediloL (COREG) 3.125 mg tablet Take by mouth 2 (two) times a day with meals. 08/19/2022 active Crestor 40 MG Crestor 40 MG 08/19/2022 a ctive Amiodarone HCl 200 MG Amiodarone HCl 200 MG 08/19/2022 active Aspirin 81 MG Aspirin 81 MG 08/19/2022 a ctive Eliquis 5 MG Eliquis 5 MG 08/19/2022 act shaheen amiodarone (PACERONE) 400 mg tablet Take by mouth 1 (one) time each day. 08/18/2022 active Allergies Allergen Reaction Severity Comment Documented Date Source Statu s [id number] REDUCTASE INHIBITORS muscle cramps severe ENS_GRIFTPC T AMOXICILLIN rash ENS_GRIF TPC T METOPROLOL palpitations ENS_GR IFTPC T GABAPENTIN other moderate severity ENS_GRIFTPC T Problems Problem Status Onset Date Problem Type Date of Resolution Source Paroxysmal atrial fibrillation active ProblemAct ENS_CNS Chronic systolic heart failure active ProblemAct ENS_CNS Paresthesias active EncounterDiagnosisAct HCH_GT Anxiety disorder active ProblemAct EN S_CNS Persistent atrial fibrillation active ProblemAct ENS_GRIFTPC T Left bundle branch hemiblock active 2022-05-27 ProblemAct ENS_GRIFTPC T Arthritis active ProblemAct ENS_GRIFT PC T Cardiac pacemaker in situ active 2022-11-26 ProblemAct ENS_GRIFTPC T Cerebrovascular accident active ProblemAct ENS_JEAN PAULPC T Palpitations active 2022-05-27 ProblemAct ENS_G RIFTPC T Right bundle branch block AND left anterior fascicular block active 2022-05-27 ProblemAct ENS_JEAN PAULPC T Left atrial appendage absent active 2022-05-27 ProblemAct ENS_JEAN PAULPC T History of cardioversion active ProblemAct ENS_JEAN PAULPC T Rupture of tendon active ProblemAct E NS_JEAN PAULPC T Dyspnea active ProblemAct ENS_JEAN PAUL PC T Nonsustained ventricular tachycardia active 2023-06-07 ProblemAct ENS_JEAN PAULPC T Paroxysmal atrial fibrillation active 2022-05-27 ProblemAct ENS_JEAN PAULPC T Nerve injury active ProblemAct ENS_DEEPTHI IFTPC T Ventricular premature beats active 2022-05-27 ProblemAct ENS_JEAN PAULPC T Atrial flutter active ProblemAct ENS_ JEAN PAULPC T Cardiac arrhythmia active 2022-05-27 ProblemAct ENS_JEAN PAULPC T Insomnia active ProblemAct ENS_JEAN PAUL PC T
== END 2024-03-28 14:27 | disposition home or self-care (01) ==
PROVIDERS: PCP Internal Medicine; Visit Provider Urology
DX: N13.30 Unspecified hydronephrosis (principal); R39.12 Poor urinary stream; Z13.9 Encounter for screening, unspecified
CPT/HCPCS: 99214

== ENCOUNTER → 2024-03-28 13:32 | Outpatient (BNVA) | payer MEDICARE, SELFPAY | PROVIDERS: PCP Internal Medicine; Visit Provider Urology | DX: N13.30 Unspecified hydronephrosis (principal); R39.12 Poor urinary stream | CPT/HCPCS: 81003; 99212 ==

== ENCOUNTER 2024-04-13 10:54 | Day surgery (SDC) | payer MEDICARE, SELFPAY ==
--- OUTSIDE RECORDS SUMMARY | 2024-04-05 03:03 | XMS_ITS | Data Portability ---
Author Organization [facility], [facility], Primary Care [facility] Walk Address [address] [facility] [facility] [address] [place] [address] Care Team Providers Care Ranger Aide Name Role Phone JORDON OROZCO Clinical Cardiac Electrophysiolo gist FRANCA VELA Golf Caddie ИВАН YANES Primary Care Provider [phone] HAN JONES Cardiac Surgeon CRISTINA LEONARD Refractory Grinder Operator Assessment Encounter Date Assessment Date Assessment LastModified [...] rhythm sinus bradycardia. 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 Device mode AAIR <=> DDDR 60-130 bpm. Lead parameters are stable. CUSTOMER ENGAGEMENT MANAGER <0.1%, AP 93.1%. No atrial or ventricular [...] were made. He will refer to his substation operator automatic for any blood pressure control guidelines. He [...] on September 26 and occurred in the seal extrusion operator hours. The other 2 episodes were in [...] a stress test. He is seeing his substation operator automatic on December 02. The patient will bring this up with his substation operator automatic and I will send him a copy [...] I will discuss this with the patient's substation operator automatic to see if they can arrange for this where Mr. Quispe lives in [place]. We will await PET scan and genetics. I will see him back in the office in 6 months. I left a message on the patient's cell phone after our visit to discuss the above. I also left a message with his substation operator automatic asking him to call me to discuss [...] hour. His monitor is followed by his substation operator automatic. He continues to have frequent PVCs as [...] will obtain his recent echo from his substation operator automatic office. His main concern is fatigue, anemia and chronic kidney disease. He has follow-up with nephrology next week. I have asked him to call us if he develops any palpitations. He has close follow-up with his substation operator automatic. I would like to see him back [...] For Internal Use Only, Do Not Delete/merge, [id number] 02/04/2022 17:06:11 electroca rdiogram 2022 023 In-House Results, For Internal Use Only, Do Not Delete/merge, [id number] 05/27/2022 15:29:01 electroca rdiogram 2022 023 In-House Results, For Internal Use Only, Do Not Delete/merge, [id number] 11/26/2022 16:14:21 electroca rdiogram 2023 024 In-House Results, For Internal Use Only, Do Not Delete/merge, [id number] 06/06/2023 16:39:34 electroca rdiogram 2023 024 In-House Results, For Internal Use Only, Do Not Delete/merge, [id number] 12/05/2023 16:24:44 Medication Orders None recorded. Patient TargetsNo targets recorded. Patient Instructions Encounter Date Encounter Id Patient Instructions Last Modified By Organization Details Last Modified Time 02/04/2022 [id number] I spent a total of {{# of minutes 75#}} minutes on the same date of service providing pqda-qj-yoxo and hcq-haib-kq-face patient care. Not available 02/04/2022 17:06:22 05/27/2022 [id number] - From an electrophysiology perspective, we feel it is low risk for you to discontinue taking Coumadin - We are STOPPING your Amiodarone - Please refer to your substation operator automatic's recommendations regarding your blood pressure recommendations - Follow up in 6 months for routine follow up Not available 05/27/2022 14:36:02 I spent a total of {{# of minutes 25#}} minutes on the same date of service providing pyoz-yo-comw and fvw-wsle-wu-face patient care. Not available 05/27/2022 14:28:45 11/26/2022 [id number] I spent a total of {{# of minutes 35#}} minutes on the same date of service providing duxr-iv-bqtj and epa-hshv-uy-face patient care. Not available 11/26/2022 15:59:24 06/06/2023 [id number] I spent a total of {{# of minutes 35#}} minutes on the same date of service providing lbwk-la-cylc and vug-eebw-xi-face patient care. Not available 06/06/2023 16:54:15 12/05/2023 [id number] I spent a total of {{# of minutes 35#}} minutes on the same date of service providing vihh-tf-tdka and cxg-xdsv-by-face patient care. Not available 12/05/2023 16:23:56 Reason for Referral None Reported. Results Created Date Observation Date Name Description Value Unit Range Abnormal Flag Note LastModifiedBy Organization Detail LastModifiedTime 02/05/20 22 02/04/2022 elect rocar diogr am No observ ation record ed. In-House Results For Internal Use Only, Do Not Delete/merge, [id number] 02/04/2022 17:06:10 02/06/20 22 02/04/2022 US, echoc ardio gram, trans thora cic, compl ete No observ ation record ed. [email or web address] [facility] [address] [place], [address], 02/05/2022 14:18:08 03/23/20 22 03/21/2022 pacem kathy inter rogat ion (PROC ) No observ ation record ed. [email or web address] Not Available 03/23 12:18:08 04/06/20 22 03/29/2022 caro r monit or No observ ation record ed. [email or web address] Not Available 2021 13:52:07 05/27/19 23 05/27/2022 elect rocar diogr am No observ ation record ed. In-House Results For Internal Use Only, Do Not Delete/merge, [id number] 05/27/2022 15:25:52 05/27/19 elect rocar diogr am No observ ation record ed. [email or web address] Not Available 05/2022 14:03:56 05/28/19 23 05/27/2022 elect rocar diogr am No observ ation record ed. [email or web address] In-House Results For Internal Use Only, Do Not Delete/merge, [id number] 05/28/2022 11:23:34 05/28/19 23 05/27/2022 pacem kathy inter rogat ion (PROC ) No observ ation record ed. [email or web address] Not Available 2022 11:27:20 11/27/19 23 11/26/2022 elect rocar diogr am No observ ation record ed. YOUSUF In-House Results For Internal Use Only, Do Not Delete/merge, [id number] 11/26/2022 16:14:20 11/27/19 23 elect rocar diogr am No observ ation record ed. [email or web address] Not Available 10/2022 06:56:31 12/06/19 23 11/26/2022 devic e check (PROC ) No observ ation record ed. [email or web address] Not Available 2022 23:01:26 06/02/19 24 12/16/2022 trans -thor acic echoc ardio gram (TTE) (PROC ) No observ ation record ed. [facility] [address] [place] [address], [place], [address], 06/02/2023 13:58:09 06/06/19 24 06/06/2023 elect rocar diogr am No observ ation record ed. [email or web address] In-House Results For Internal Use Only, Do Not Delete/merge, [id number] 06/06/2023 16:39:33 06/06/19 24 elect rocar diogr am No observ ation record ed. Not Available 2023 16:43:35 06/19/19 24 06/08/2023 devic e check (PROC ) No observ ation record ed. [email or web address] Not Available 2023 11:37:54 06/22/19 24 06/22/2023 PET, heart No observ ation record ed. [email or web address] [facility] [address] [facility], [place], [address], 06/23/2023 09:16:18 12/05/19 24 12/05/2023 elect rocar diogr am No observ ation record ed. [email or web address] In-House Results For Internal Use Only, Do Not Delete/merge, [id number] 12/05/2023 16:25:03 12/05/19 24 elect rocar diogr am No observ ation record ed. Not Available 2023 16:25:04 12/06/19 24 11/29/2023 , echoc ardio gram No observ ation record ed. [email or web address] Not Available 10:41:26 12/11/19 24 12/05/2023 devic [...] Address Organization Details Recorded Time Atrial flutter 2156881 Active Jane Watt null, [place] - [facility] 2 14:43:55 Persisten t atrial fibrillat ion 808664098 Active Janeyovani Watt null, [place] - [facility] 2 14:44:26 Rupture of tendon 442963427 Active Nontrauma tic L ankle Jane Watt null, [place] - [facility] 2 14:45:26 History of cardiover vita 053353401201 08 Active [facility] null[facility] [place] [facility] 2 14:45:57 Cerebrova scular accident 741545821 Active Janeyovani Watt null, [place] - [facility] 2 14:46:07 Dyspnea 029838534 Active Janeyovani Watt null, [place] - [facility] 2 14:46:19 Insomnia 185922223 Active Janeyovani Watt null, [place] - [facility] 2 14:46:34 Nerve injury 03131366 Active Right Arm Jane Watt null, [place] - [facility] 2 14:47:21 Arthritis 3899337 Active Right Foot Jane Watt null, [facility] 2 14:47:56 Cardiac arrhythmi a 438078637 Active 2022 Arden Cosme null, [facility] 3 13:53:39 Palpitati ons 85787813 Active 2022 ARCHANA CARIAS [address] [place] [address], [place] [address], [facility] 3 14:57:10 Paroxysma l atrial fibrillat ion 659237804 Active [address] [place] [address], [place] [address], [facility] 3 14:59:34 Ventricul ar premature beats 51656602 Active [address] [place] [address], [place] [address], [facility] 3 14:59:56 Left atrial appendage absent 523543920 Active 2022 s/p clipping of GABRIEL at time of MV repair, 2021 ARCHANA Cooper [address] [place] [address], [place], [place], [address] [place] [address], [facility] 4 09:17:42 Left bundle branch hemiblock 0799652 Active 2022 ARCHANA CARIAS [address] [place] [address], [place], [address] [place] [address], [facility] 3 15:03:55 Right bundle branch block AND left anterior fascicula r block 03315538 Active [address] [place] [address], [place], [address] [place] [address], [facility] 3 15:26:05 Cardiac pacemaker in situ 798358849 Active DEVICE MODEL [id number] Becky? ? XT MRI DEVICE SERIAL NUMBER [id number] G DEVICE TYPE Pacemaker DATE OF IMPLANT 28-Nov-19 22 pt transferr ed into 's remote clinic from [place] 12/13/2023 Phoebe Mccracken RN [address] [place] [address], [place], [address], [facility] 12:20:39 Nonsustai marcelo ventricul ar tachycard ia 019495302 Active 2023 ARCHANA Cooper [address] [place] [address], [place], [address], [place] [facility] 12:44:39 Problem Notes None recorded. Procedures Surgical History Date Name Laterality Status Provider Name and Address Organization Details Recorded Time 12/05/19 24 In-person Programming of Pacemaker: Dual Chamber CPT 69318,26 completed ARCHANA Cooper [address] [place] [address], [place], [address], [place] [facility] 12/05/2023 16:20:31 06/06/19 24 In-person Programming of Pacemaker: Dual Chamber CPT 49776,26 completed ARCHANA Cooper [address] [place] [address], [place], [address], [place] - [facility] 06/07/2023 12:27:03 11/27/19 23 In-person Programming of Pacemaker: Dual Chamber CPT 17494,26 completed ARCHANA Cooper [address] [place] [address], [place], [address], [place] - [facility] 11/26/2022 16:11:31 05/27/19 23 In-person Programming of Pacemaker: Dual Chamber CPT 55612,26 completed ARCHANA CARIAS [address] [place] [address], [place], [address], [facility] 05/27/2022 15:17:02 04/25/19 23 Hernia repair: Incisional completed Jane Watt [place] - [facility] 12/05/2023 15:26:37 02/05/20 22 In-person Programming of Pacemaker: Dual Chamber CPT 75275,26 completed Jordon Orozco MD [address], [place], [address], [place] - [facility] 02/04/2022 17:05:28 11/28/19 22 cardiac pacemaker procedure completed Han Mills RN [address], [place], [address], [place] - [facility] 02/04/2022 16:16:27 11/13/19 22 Maze procedure completed Han Mills RN [address], [place], [address], [place] - [facility] 11/24/2021 13:27:31 11/13/19 22 atrial appendage excision completed Han Mills RN [address], [place], [address], [place] - [facility] 11/24/2021 [...] of mitral valve completed Han Mills, RN [address] [place] [address],[address], [place], [address], [place] - [facility] 11/24/2021 13:31:59 Imaging Results Imaging Date Name Status LastModified by Organization Details LastModified Time 02/04/2022 electrocardiogram completed In-Hous e Results For Internal Use Only, Do Not Delete/merge, [id number] 02/04/2022 17:06:10 02/04/2022 US, echocardiogram, transthoracic, complete completed [email or web address] [facility] [address] [facility], [place], [address], 02/05/2022 14:18:08 03/21/2022 pacemaker interrogation (PROC) completed [email or web address] Information not available 03/23/2022 12:18:08 03/29/2022 holter monitor completed [email or web address] Informatio n not available 04/09/2022 13:52:07 05/27/2022 electrocardiogram completed In-Hous e Results For Internal Use Only, Do Not Delete/merge, [id number] 05/27/2022 15:25:52 05/27/2022 electrocardiogram completed Infor mation not available 05/27/2022 14:03:56 05/27/2022 electrocardiogram completed [email or web address] In-Hous e Results For Internal Use Only, Do Not Delete/merge, [id number] 05/28/2022 11:23:34 05/27/2022 pacemaker interrogation (PROC) completed Information not available 05/28/2022 11:27:20 11/26/2022 electrocardiogram completed [email or web address] In-Hous e Results For Internal Use Only, Do Not Delete/merge, 40792 11/26/2022 16:14:20 11/26/2022 electrocardiogram completed Infor mation not available 11/29/2022 06:56:31 11/26/2022 device check (PROC) completed [email or web address] Infor mation not available 12/05/2022 23:01:26 12/16/2022 trans-thoracic echocardiogram (TTE) (PROC) completed [email or web address] [facility] [address] [place] [address], [address], 06/02/2023 13:58:09 06/06/2023 electrocardiogram completed [email or web address] In-Hous e Results For Internal Use Only, Do Not Delete/merge, [id number] 06/06/2023 16:39:33 06/06/2023 [facility]cardiogram [email or web address] In[facility] tion not available 06/06/2023 16:43:35 06/08/2023 device check (PROC) completed [email or web address] Infor mation not available 06/19/2023 11:37:54 06/22/2023 PET, heart completed [email or web address] [facility] [address] [place] [address] [address], [place], [address], 06/23/2023 09:16:18 12/05/2023 electrocardiogram completed [email or web address] In-Hous e Results For Internal Use Only, Do Not Delete/merge, [id number] 12/05/2023 16:25:03 12/05/2023 electrocardiogram completed Informa tion not available 12/05/2023 16:25:04 11/29/2023 US, echocardiogram completed [email or web address] Inf ormation not available 12/06/2023 10:41:26 12/05/2023 [...] Name and Address Organization Details Recorded Time 052803 metoprolo l Not available dizziness palpitati ons severe Not available Not available 09/23/2021 6918 RxNorm [facility] 2 14:56:20 866012 Substance with sulfonami de structure and antibacte rial mechanism of action (substanc e) medicatio n Not available Not available Not available 09/23/2021 59743 8003 SNOMED Unsur e Child moreland react ion [facility]ajardo [facility] 2 14:57:02 273836 gabapenti n medicatio n other moderate Not available 02/04/2022 99850 RxNorm Beni ce & gate Han Mills RN [address], [place], [address], [facility] 2 16:11:28 305877 Product containin g 3-hydroxy -3-methyl glutaryl- coenzyme A reductase inhibitor (product) medicatio n muscle cramps severe Not available 02/04/2022 93967 009 SNOMED Han Mills RN [address], [place], [address], [facility] 2 16:12:03 997455 amoxicill in medicatio n rash Not available Not available 11/26/2022 723 RxNorm David guajardo [facility] 3 15:16:47 Medications Name Sig [...] TABLETS BY MOUTH EVERY DAY DIRECTED BY [facility] 11/26 completed Not Available Not Available Not [...] Updated DateTime 3 187.96 cm 23.6 kg/m2 31742 g 16 /min 98 % 98 % 67 /min 108 mm[Hg] 70 mm[Hg] Arden Cosme [facility] 3 13:53:30 Date Recorded Body height Body mass index (BMI) Body weight Systolic blood pressure Diastolic blood pressure Provider Name and Address Organization Details Last Updated DateTime 11/26/2022 187.96 cm 23.1 kg/m2 03097.63 g 112 mm[Hg] 64 mm[Hg] Dvaid Rivas [facility] 3 15:22:35 Date Recorded Body height Body mass index (BMI) Body weight Respiratory rate Heart rate Oxygen saturation Oxygen saturation in Arterial blood by Pulse oximetry Systolic blood pressure Diastolic blood pressure Provider Name and Address Organization Details Last Updated DateTime 4 187.96 cm 23.1 kg/m2 14044.6 3 g 16 /min 62 /min 99 % 99 % 110 mm[Hg] 62 mm[Hg] Lona Arellano [facility] 4 15:20:27 Date Recorded Body height Body mass index (BMI) Body weight Respiratory rate Body temperature Oxygen saturation Oxygen saturation in Arterial blood by Pulse oximetry Heart rate Systolic blood pressure Diastolic blood pressure Provider Name and Address Organization Details Last Updated DateTime 4 187.96 cm 24.4 kg/m2 01243.5 5 g 16 /min 99.1 [degF] 99 % 99 % 55 /min 126 mm[Hg] 70 mm[Hg] Jane Shukri [facility] 15:37:28 Date Recorded Body height Body mass index (BMI) Body weight Respiratory rate Provider Name and Address Organization Details Last Updated DateTime 02/04/2022 187.96 cm 23.1 kg/m2 57191.63 g 16 /min Han Mills RN [address], [place], [address] , [facility] 02/04/2022 16:10:00 Social History Question Answer Notes LastModified by Organizat ion Details LastModified Time Tobacco Smoking Status Former Smoker quit greater than 40 years Annette Cuellar RN [address], [place], [address], [facility], [facility] 09/28/2021 13:21:29 Do You Have An Advance Directive? Yes [email or web address] Information not available 06/06/2023 What Is Your Level Of Alcohol Consumption? Occasional Information not available 11/26/2022 How Many Times Per Week Do You Consume Alcohol? Less Than 1 Time Per Week Information not available 06/06/2023 Is Blood Transfusion Acceptable In An Emergency? Yes [email or web address] Information not available 06/06/2023 What Is Your Level Of Caffeine Consumption? Moderate 1-2 Cups Of Coffee Information not available 06/06/2023 What Type Of Diet Are You Following? CARDIAC Information not available 09/28/2021 When Did You Quit Smoking? 16+yearssincel astcigarette Information not available 06/06/2023 Do You Have A Factory Laborer (loved One Involved In Your Care)? No Information not available 11/26/2022 Do You Feel Safe At Home? Yes Information not available 09/28/2021 Over The Last 3 Months, Have You Struggled With Housing? No Information not available 12/05/2023 Over The Last 3 Months, Have You Struggled With Access To Food? No [email or web address] Information not available 12/05/2023 Over The Last 3 Months, Have You Struggled With Utilities? No [email or web address] Information not available 12/05/2023 Over The Last 3 Months, Have You Struggled With Transportation? No [email or web address] Information not available 12/05/2023 Over The Last 3 Months, Have You [place] Unsafe In Your Relationship? No [email or web address] Information not available 12/05/2023 What Was The Date Of Your Most Recent Tobacco Screening? 12/05/2023 [email or web address] Information not available 12/05/2023 How Many Children Do You Have? 2 Information not available 09/28/2021 Do You Use Any Illicit Or Recreational Drugs? No [email or web address] Information not available 06/06/2023 Has Tobacco Cessation Counseling Been Provided? No [email or web address] Information not available 12/05/2023 How Many Years Have You Smoked Tobacco? 15 Information not available 06/06/2023 Do You Or Have You Ever Used Any Other Forms Of Tobacco Or Nicotine? No Information not available 06/06/2023 Sex: Male Functional Status Question Answer Note LastModified by Organizat ion Details LastModified Time What is your exercise level? Occasional Information not available 06/06/2023 Mental Status None recorded. Family History Relationship Description Onset Age of this Age Resolved Age Notes LastModified by Organization Details LastModified Time Mother Dementia 97 Not availa ble 09/23/2021 14:55:32 Father Family history of stroke 87 [email or web address] Not available 04/2021 14:55:47 Notes:11/26/22 JG Medical History Condition Response Gout N Atrial Fibrillation Y High Blood Pressure N Thyroid problems N Blood disorders N Asbestos exposure N Colonoscopy N COPD N Glaucoma N Migraine Headaches N Kidney disease or problem N Bleeding tendencies N Seizures, convulsions, epilepsy N Depression, mental illness N Hemorrhoids N Obesity N Arthritis Y Angina pectoris N Cancer N Stroke Y High cholesterol N [...] related to an anesthetic N Palpitation N Anxiety disorder N Auto-immune disease N Anemia N Heart Block Y Ventricular Tachycardia N Diabetes N Bladder disease N Alcoholism/Substance Abuse N Lung disease (pneumonia, TB, emphysema) N Fainting spells N Heart disease Y Diverticulitis N Heart Attack N Allergies N Asthma N Atrial Flutter Y Breast disease N Sickle cell disease N Any blood relative who had anesthesia co mplications N SVT (Supraventricular Tachycardia) N Sleep Apnea N Past Encounters Encounter ID Performer Location Encounter Start Date Encounter Closed Date Diagnosis/Indication Diagnosis SNOMED-CT Code Diagnosis ICD10 Code [id number] Devorah Pan APRN [facility] [place] [address] [place] [address] 09/28/2021 12:47:43 09/28/2021 14:08:29 Cardiac arrhythmia 300536719 I49.9 Paroxysmal atrial fibrillation 110330671 I48.0 Cardiomyopathy 59140764 I42.9 [id number] Jordon Orozco MD [facility] [place] [address] [place] [address] 02/04/2022 15:47:13 02/04/2022 17:17:51 Palpitations 50297237 R00.2 [id number] ARCHANA CARIAS [facility] [place] [address] [place] [address] 05/27/2022 13:34:44 05/27/2022 14:36:21 Cardiac arrhythmia 836451443 I49.9 Palpitations 99403603 R0 0.2 History of radiofrequency ablation operation for arrhythmia 885429978 Z98.890 Paroxysmal atrial fibrillation 848373832 I48.0 Ventricula r premature beats 48739200 I49.3 History of maze procedure for atrial fibrillation 865708866 Z98.890 History of repair of mitral valve 730422971 Z98.890 Left atria l appendage absent 487944629 Q20.8 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 99057116 I44.4 Cardiomyopathy 21688910 I42.9 [id number] ARCHANA Cooper Cardiac EP [facility] [address] [facility] [address] [place] [address] 11/26/2022 14:57:35 11/26/2022 16:03:00 Cardiac arrhythmia 548669702 I49.9 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 18245354 I44.4 Persistent atrial fibrillation 140501946 I48.19 Cardiac pa cemaker in situ 921687055 Z95.0 [id number] Angelita Butler PA Cardiac EP [facility] [place] [address] [address] 06/06/2023 14:43:25 06/06/2023 16:06:44 Cardiac arrhythmia 607945888 I49.9 Atrial flutter 8036883 I 48.92 Cardiac pa cemaker in situ 027180924 Z95.0 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 14945658 I44.4 Nonsustain ed monomorphic ventricular tachycardia 4639876604 I47.29 [id number] Angelita Butler PA Cardiac EP [facility] [place] [address] [address] 12/05/2023 15:13:26 12/05/2023 16:18:04 Cardiac arrhythmia 611067077 I49.9 Atrial flutter 9019060 I 48.92 Cardiac pa cemaker in situ 529439928 Z95.0 Nonsustain ed ventricular tachycardia 406828550 I47.20 Health Concerns Section Related Observation LastModified by Organization Detai ls LastModified Time None Recorded Concern Status LastModified by Organization Details LastModified Time None Recorded Advance Directives Directive Y: Payers Encounter Date Sequence Insurance Name Policy Number Policy Shelby Covered Member ID Shelby Member ID Guarantor Name 02/04/2022 1 MEDICARE B-CT: NGS Eliazar Quispe [id number] 24 Eliazar Quispe 02/04/2022 2 [place] [id number] Eliazar Quispe [id number] 248 Eliazar Quispe 05/27/2022 1 MEDICARE B-CT: NGS Eliazar Quispe [id number] 24 Eliazar Quispe 05/27/2022 2 [place] [id number] Eliazar Quispe [id number] 248 Eliazar Quispe 11/26/2022 1 MEDICARE B-CT: DYLON Quispe [id number] 24 Eliazar Quispe 11/26/2022 2 [place] [id number] Eliazar Quispe [id number] 248 Eliazar Quispe 06/06/2023 1 MEDICARE B-CT: DYLON Quispe [id number] 24 Eliazar Quispe 06/06/2023 2 [place] [id number] Eliazar Quispe [id number] 248 Eliazar Quispe 12/05/2023 1 MEDICARE B-CT: DYLON Qiuspe [id number] 24 Eliazar Quispe 12/05/2023 2 [place] [id number] Eliazar Quispe [id number] 248 Eliazar Quispe Notes Date Note Type [...] excellent health. 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 He was referred to Dr. White at [facility]. As far as I can tell, [...] that time.More recently, he was admitted to [facility] on 01/18/20 with increasing shortness of [...] that admission, he had an echocardiogram at [facility] done on 01/16/20. 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 He has a son Han who lives in [place].I would note that one of the possibilities [...] distribution.His preadmission lab studies were drawn at [facility]. His vitamin B12 level was [...] also showed 2500 PACs. We reviewed his [email or web address] ari which showed episodes of possible A. [...] any cardiac complaints. He was using his [employer] ari routinely which was showing sinus rhythm. A Holter monitor done prior to our visit showed a significant decline in his PVC burden and PAC burden. We did not make any changes to his medication. I asked that he follow-up with his substation operator automatic regarding the mitral regurgitation noted on his echocardiogram.He did have a hernia repair shortly after that visit.However in December 2020 he was found to have atrial flutter on his [employer] ari which was also confirmed on an EKG.He was brought to the EP lab on March 16, 2021 by and underwent a successful ablation of mitral valve flutter with both epicardial and endocardial ablation.He was last seen in the office at [facility] in April 2021. He had been doing well since his procedure and denied any recurrence of arrhythmias or palpitations. He was using his [employer] monitor and did not note any atrial fibrillation or rapid heart rates. He reported occasional chest discomfort which she described as tightness and it was not exertional. He had a stress test in May 2020 that did not show any ischemia. We asked him to follow-up with his substation operator automatic regarding need for further work-up. His EKG was unchanged compared to prior tracings and his cardiac examination was within normal limits with the exception of occasional ectopic beats. We deferred a repeat echocardiogram to his substation operator automatic given the findings of mitral regurgitation on his last echocardiogram. He remained anticoagulated with Eliquis for his TPS3TF6-JWNu score of 4. We discussed the importance [...] like getting out of bed. Despite his substation operator automatic increasing his carvedilol dose he has not [...] the procedure. We will defer to his substation operator automatic for longitudinal monitoring of his mitral regurgitation. [...] amiodarone. I spoke to Dr. Vela his substation operator automatic 10/01/2021. It was felt that he might [...] he is going to consult with a grade tamper. Overall again however he feels significantly improved and is getting back to himself. I would note that I did have an echocardiogram today at [facility] we will be getting the [...] this should be continued. Jordon Orozco MD [address] [place] [address],[address], [place], [address], [facility], [facility] 02/04/2022 17:11:18 05/27/2022 text/html To [...] excellent health. 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 He was referred to Dr. White at [facility]. As far as I can tell, [...] that time.More recently, he was admitted to [facility] on 01/18/20 with increasing shortness of [...] that admission, he had an echocardiogram at [facility] done on 01/16/20. 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 He has a son Han who lives in [place].I would note that one of the possibilities [...] distribution.His preadmission lab studies were drawn at [facility]. His vitamin B12 level was [...] also showed 2500 PACs. We reviewed his [email or web address] ari which showed episodes of possible A. [...] any cardiac complaints. He was using his [employer] ari routinely which was showing sinus rhythm. A Holter monitor done prior to our visit showed a significant decline in his PVC burden and PAC burden. We did not make any changes to his medication. I asked that he follow-up with his substation operator automatic regarding the mitral regurgitation noted on his echocardiogram.He did have a hernia repair shortly after that visit.However in December 2020 he was found to have atrial flutter on his [email or web address] ari which was also confirmed on an EKG.He was brought to the EP lab on March 16, 2021 by and underwent a successful ablation of mitral valve flutter with both epicardial and endocardial ablation.He was last seen in the office at [facility] in April 2021. He had been doing well since his procedure and denied any recurrence of arrhythmias or palpitations. He was using his [email or web address] monitor and did not note any atrial fibrillation or rapid heart rates. He reported occasional chest discomfort which she described as tightness and it was not exertional. He had a stress test in May 2020 that did not show any ischemia. We asked him to follow-up with his substation operator automatic regarding need for further work-up. His EKG was unchanged compared to prior tracings and his cardiac examination was within normal limits with the exception of occasional ectopic beats. We deferred a repeat echocardiogram to his substation operator automatic given the findings of mitral regurgitation on his last echocardiogram. He remained anticoagulated with Eliquis for his [id number] score of 4. We discussed the importance [...] like getting out of bed. Despite his substation operator automatic increasing his carvedilol dose he has not [...] the procedure. We will defer to his substation operator automatic for longitudinal monitoring of his mitral regurgitation. [...] amiodarone. I spoke to Dr. Vela his substation operator automatic 10/01/2021. It was felt that he might [...] he is going to consult with a grade tamper. Overall again however he feels significantly improved and is getting back to himself. I would note that I did have an echocardiogram today at [facility] we will be getting the [...] very active. He will be seeing his substation operator automatic next week. He asked that we verify [...] on Coumadin for anticoagulation. ARCHANA CARIAS [address] [facility], [place], [address], [facility], [facility] 05/27/2022 15:28:36 11/26/2022 text/html To review, Mr. lEiazar Quispe is a pleasant 71 y.o. man who I first saw on 03/01/20 in regards to persistent atrial fibrillation, high-grade ventricular ectopy, reduction in ejection fraction, mitral regurgitation, and congestive heart failure. He is a very complex case.To try to tie things together, he overall in the past was very athletic and enjoyed excellent health. 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 He was referred to Dr. White at [facility]. As far as I can tell, [...] that time.More recently, he was admitted to [facility] on 01/18/20 with increasing shortness of [...] that admission, he had an echocardiogram at [facility] done on 01/16/20. 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 He has a son Han who lives in [place].I would note that one of the possibilities [...] distribution.His preadmission lab studies were drawn at [facility]. His vitamin B12 level was [...] also showed 2500 PACs. We reviewed his [email or web address] ari which showed episodes of possible A. [...] any cardiac complaints. He was using his [email or web address] ari routinely which was showing sinus rhythm. A Holter monitor done prior to our visit showed a significant decline in his PVC burden and PAC burden. We did not make any changes to his medication. I asked that he follow-up with his substation operator automatic regarding the mitral regurgitation noted on his echocardiogram.He did have a hernia repair shortly after that visit.However in December 2020 he was found to have atrial flutter on his [email or web address] ari which was also confirmed on an EKG.He was brought to the EP lab on March 16, [address] Deras and underwent a successful ablation of mitral valve flutter with both epicardial and endocardial ablation. He was seen at [facility] in April 2021. He denied any recurrence of arrhythmias or palpitations. He was using his cardia monitor daily which did not show any atrial fibrillation or rapid heartbeats. He reported occasional chest discomfort and we asked him to follow-up with his substation operator automatic. We also felt he should have another [...] remote monitoring is being followed by his substation operator automatic. ARCHANA Cooper [address] [place] [address],[address] [facility], [place], [address], [facility], [facility] 11/26/2022 16:26:06 06/06/2023 text/html To [...] excellent health. 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 He was referred to Dr. White at [facility]. As far as I can tell, [...] that time.More recently, he was admitted to [facility] on 01/18/20 with increasing shortness of [...] that admission, he had an echocardiogram at [facility] done on 01/16/20. 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 He has a son Han who lives in [place].I would note that one of the possibilities [...] distribution.His preadmission lab studies were drawn at [facility]. His vitamin B12 level was [...] also showed 2500 PACs. We reviewed his [email or web address] ari which showed episodes of possible A. [...] any cardiac complaints. He was using his [email or web address] ari routinely which was showing sinus rhythm. A Holter monitor done prior to our visit showed a significant decline in his PVC burden and PAC burden. We did not make any changes to his medication. I asked that he follow-up with his substation operator automatic regarding the mitral regurgitation noted on his echocardiogram.He did have a hernia repair shortly after that visit.However in December 2020 he was found to have atrial flutter on his [email or web address] ari which was also confirmed on an EKG.He was brought to the EP lab on March 16, [address] Deras and underwent a successful ablation of mitral valve flutter with both epicardial and endocardial ablation. He was seen at [facility] in April 2021. He denied any recurrence of arrhythmias or palpitations. He was using his cardia monitor daily which did not show any atrial fibrillation or rapid heartbeats. He reported occasional chest discomfort and we asked him to follow-up with his substation operator automatic. We also felt he should have another [...] by Dr. Castillo Aguillon. This is a [employer] dual-chamber unit which is an Aynor XT DR device. The device is programmed [...] and he had a follow-up with his substation operator automatic. PVC counters showed 75/h. He had an [...] to his discomfort. He is seeing his substation operator automatic tomorrow. He has a home monitor which is being followed by his substation operator automatic. ARCHANA Cooper [address] [place] [address],[address], [place], [address], [facility], [facility] 06/08/2023 10:07:34 12/05/2023 text/html To [...] excellent health. 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 He was referred to Dr. White at [facility]. As far as I can tell, [...] that time.More recently, he was admitted to [facility] on 01/18/20 with increasing shortness of [...] that admission, he had an echocardiogram at [facility] done on 01/16/20. 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 He has a son Han who lives in [place].I would note that one of the possibilities [...] distribution.His preadmission lab studies were drawn at [facility]. His vitamin B12 level was [...] also showed 2500 PACs. We reviewed his [email or web address] ari which showed episodes of possible A. [...] any cardiac complaints. He was using his [email or web address] ari routinely which was showing sinus rhythm. A Holter monitor done prior to our visit showed a significant decline in his PVC burden and PAC burden. We did not make any changes to his medication. I asked that he follow-up with his substation operator automatic regarding the mitral regurgitation noted on his echocardiogram.He did have a hernia repair shortly after that visit.However in December 2020 he was found to have atrial flutter on his [email or web address] ari which was also confirmed on an EKG.He was brought to the EP lab on March 16, [address] Deras and underwent a successful ablation of mitral valve flutter with both epicardial and endocardial ablation. He was seen at [facility] in April 2021. He denied any recurrence of arrhythmias or palpitations. He was using his cardia monitor daily which did not show any atrial fibrillation or rapid heartbeats. He reported occasional chest discomfort and we asked him to follow-up with his substation operator automatic. We also felt he should have another [...] a [employer] dual-chamber unit which is an Aynor XT DR device. The device is programmed [...] and he had a follow-up with his substation operator automatic. PVC counters showed 75/h. He had an [...] breath, palpitations, near-syncope or syncope. ARCHANA Cooper [address] [place], [place] [address],[address], [place], [address], [facility], [facility] 12/05/2023 16:24:46
--- OUTSIDE RECORDS SUMMARY | 2024-04-05 03:03 | XMS_ITS | Data Portability ---
Author Organization ARCHANA - Misael Bardales s, [address] Address [address] [place] [address] Assessment No assessment recorded. Plan of Treatment Reminders Order Date Submit Date Provider Last Modified By Organization Details Last Modified Time Details Appointments None recorded. Lab None recorded. Referral otolaryngol ogist referral - feeling dizzy and vertigo especially waking upm in morning. need further evaluation and treatment. 2022 023 [email or web address] 26 Pratik Rivera MD, [address] [facility] Master, [facility], [place], [address], 3 12:51:32 Procedures None recorded. Surgeries None recorded. Imaging None recorded. Medication Orders meclizine 25 mg tablet 2022 023 [id number], [address], [place], [id number], 19:15:43 Patient TargetsNo targets recorded. 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 Benign paroxysmal positional vertigo [...] Address Organization Details Recorded Time Essential hypertension 30102275 Active 2022 IRIS COUVERTIE R null, [place] - [facility] 3 18:23:37 Acute kidney injury 25285262 Active 2022 IRIS COUVERTIE R null, [place] - [facility] 3 18:26:17 Insomnia 094494896 Active 2022 IRIS COUVERTIE R null, PA [...] Name and Address Organization Details Recorded Time 294580 Substance with sulfonami de structure and antibacte rial mechanism of action (substanc e) medicatio n Not available Not available Not available 06/06/2022 83537 8003 SNOMED IRIS COUVERTIE R null, [place] - [facility] 3 18:21:58 174662 gabapenti n medicatio n dizziness Not available Not available 06/06/2022 23807 RxNorm IRIS COUVERTIE R null, [place] - [facility] 3 18:22:14 381685 rosuvasta tin medicatio n edema Not available Not available 06/06/2022 18175 2 RxNorm KRISHNA PEREZ [facility] [...] TABLETS BY MOUTH EVERY DAY DIRECTED BY [facility] 06/06 completed Not Available Not Available Not [...] Updated DateTime 3 187.96 cm 23.8 kg/m2 20197.5 9 g 100 % 100 % 66 [...] Diagnosis/Indication Diagnosis SNOMED-CT Code Diagnosis ICD10 Code [id number] [address] [facility] [place] [address] 08/09/2016 14:01:54 08/09/2016 14:52:09 [id number] [address] [facility] [place] [address] 10/08/2019 14:19:37 10/08/2019 15:46:07 [id number] [address] [facility] [place] [address] 06/14/2020 09:23:40 06/14/2020 09:53:11 [id number] [address] [facility] [place] [address] 12/31/2018 10:08:17 12/31/2018 10:53:03 [id number] [address] [facility] [place] [address] 06/08/2016 13:08:05 06/08/2016 14:31:43 [id number] [address] [facility] [place] [address] 01/02/2020 17:09:44 01/02/2020 17:43:56 [id number] [address] [facility] [place] [address] 12/18/2019 15:16:32 12/18/2019 16:26:12 [id number] [address] [facility] [place] [address] 02/19/2016 13:00:02 02/19/2016 13:30:00 [id number] [address] [facility] [place] [address] 02/13/2016 15:03:43 02/13/2016 15:28:04 [id number] [address] [facility] [place] [address] 12/08/2017 08:46:06 12/08/2017 09:50:44 [id number] [address] [place] [address] [place] [address] 03/16/2020 15:48:34 03/16/2020 18:27:17 [id number] [address] [place] [address] [place] [address] 04/30/2020 13:25:07 04/30/2020 18:52:16 [id number] ARCHANA JAIMES [address] [facility] [place] [address] 06/06/2022 15:33:14 07/27/2022 19:27:19 Left without being seen [id number] 9102 Z53.21 [id number] Leroy Crandall NP [address] [facility] [place] [address] 06/06/2022 17:13:56 06/06/2022 19:17:57 Benign paroxysmal positional vertigo 780468058 H81.10 Health Concerns Section Related Observation LastModified by Organization Detai ls LastModified Time None Recorded Concern Status LastModified by Organization Details LastModified Time None Recorded Advance Directives Directive None Recorded Payers Encounter Date Sequence Insurance Name Policy Number Policy Shelby Covered Member ID Shelby Member ID Guarantor Name 03/16/2020 1 [place] [employer] Eliazar Quispe [id number] Eliazar Quispe 03/16/2020 2 [place] [id number] Eliazar Quispe [id number] Eliazar Quispe 04/30/2020 1 [place]: [employer]ATIONAL [employer]MENT [employer] Eliazar Quispe [id number] Eliazar Berriosinger 04/30/2020 2 [place] [id number] Eliazar Berriosinger [id number] Eliazar Berriosinger 06/14/2020 1 [place]: [employer] Eliazar Berriosinger [id number] Eliazar Dowlingnninger 06/14/2020 2 [place] [id number] Eliazar Berriosinger [id number] Eliazar Berriosinger 06/06/2022 1 [place]: [employer] Eliazar Berriosinger [id number] Eliazar Berriosinger 06/06/2022 2 [place] [id number] Eliazar Berriosinger [id number] Eliazar Berriosinger 06/06/2022 1 [place]: NATIONAL [employer]MENT [employer] Eliazar Quispe [id number] 24 Eliazar Berriosinger 06/06/2022 2 [place] [id number] Eliazar Berriosinger [id number] Eliazar Quispe Notes Date Note Type [...] Crandall NP [address] [place], [address], [place] - [facility] 06/06/2022 19:16:09
[2024-04-11 10:52] VITALS: BMI 25.4
--- NOTE | 2024-04-11 12:31 | HO.ANESPROP2 ---
Documented by User: Ellie Aguilar NP 04/11/24 12:37 HPI - Anesthesia Eval Consult details Narrative: 74yo M for Transesophageal Echocardiogram In the past, he underwent atrial fibrillation, atypical flutter ablation as well as PVC ablation. In 2021, diagnosed with severe mitral regurgitation. Admitted to [facility] with acute heart failure that led to cardiac catheterization and then mitral valve surgery. Also underwent pacemaker implantation. Afib and hx DVT - no anticoag on med list d/t previous interventions for afib Follows nephro for CKD, baseline creat ~2 PMFSH Active Problems Active Problems: All Active Problems Weak urinary stream (Acute) Hydronephrosis (Acute) CKD (chronic kidney disease) stage 4, GFR 15-29 ml/min (Acute) Pharyngitis (Acute) Ascending aorta dilatation (Acute) Allergic reaction (Acute) Hypercholesterolemia (Acute) CKD (chronic kidney disease) (Acute) Ulnar neuropathy (Acute) Pacemaker (Acute) KAREN on CPAP (Acute) Numbness of left hand (Acute) Atypical atrial flutter (Acute) Anticoagulant long-term use (Acute) Plantar wart of left foot (Acute) Colon cancer screening (Acute) Peripheral vascular disease (Acute) Bilateral inguinal hernia (Acute) Anemia (Acute) Insomnia (Acute) History of DVT (deep vein thrombosis) (Acute) Atherosclerotic cardiovascular disease (Acute) Normally functioning cardiac pacemaker present (Acute) Status post mitral valve repair (Acute) Paroxysmal atrial fibrillation (Acute) Congestive heart failure (Acute) Insomnia (Acute) Allergic rhinitis (Acute) PVC (premature ventricular contraction) (Acute) Cardiomyopathy (Acute) Nonrheumatic mitral valve regurgitation (Acute) Past Medical History Medical History Vertigo 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 Atherosclerotic cardiovascular disease Normally functioning cardiac pacemaker present Acute kidney injury Generalized anxiety disorder Osteoarthritis of knees, bilateral Obstructive sleep apnea (adult) (pediatric) DVT (deep venous thrombosis) Nasal polyp Asthma Nonrheumatic mitral valve regurgitation Cardiomyopathy Cerebral infarction due to embolism of unspecified cerebral artery PVC (premature ventricular contraction) Anxiety Allergic rhinitis Insomnia Congestive heart failure Gastroesophageal reflux disease Impaired glucose tolerance Congestive heart failure Lupus anticoagulant positive Paroxysmal atrial fibrillation Hypercholesterolemia Family History Family History Father HTN (hypertension) CVA (cerebral vascular accident) Mother Skin cancer Maternal Uncle Colon cancer Son No problems noted. Daughter No problems noted. Family/Other Breast cancer Paternal Uncle Colon cancer Family history of problems with anesthesia: No Surgical History Surgical History H/O hernia repair Ventral hernia Status post mitral valve repair History of cardiac radiofrequency ablation (~03/16/21) Status post arthroscopy of left knee History of cardioversion (~01/17/20) S/P medial meniscectomy of left knee History of arthroscopy of left knee Hx of repair of right rotator cuff History of tonsillectomy History of Problems with Anesthesia: No Social History Social History Housing: House Are you a primary child care lead teacher to a significant other at home: No Do you presently have visiting nurse or other home services: No Alcohol intake: never Patient Tobacco Use Status: Former Tobacco user Tobacco use type: Cigarette Years Smoked: 12 +/- e-Cigarette/Vaping Use: Never Used Second Hand Smoke Exposure: No Have you been hit, kicked, punched, or otherwise hurt by someone within the past year? If so, by whom?: No Are you DNR?: No Advance Directives: No Advance Directives Information Provided: Yes Recently lost weight without trying: No Nutrition Risks: No Nutritional Risk service: No Current occupational status: retired Cognitive needs: No Hearing needs: No Vision needs: No Meds Allergies Allergy/AdvReac Type Severity Reaction Status Date / Time gabapentin Allergy Severe Dizziness Verified 04/13/24 11:06 atorvastatin Allergy Intermediate Muscle Verified 04/13/24 11:06 cramps rosuvastatin Allergy Intermediate Muscle Verified 04/13/24 11:06 cramps Sulfa (Sulfonamide Allergy Mild RASH Verified 04/13/24 11:06 Antibiotics) [SULFA(SULFONAMIDE ANTIBIOTICS)] metoprolol AdvReac Severe Chest Verified 04/13/24 11:06 Pain, sob, dizziness amoxicillin AdvReac Mild Rash Verified 04/13/24 11:06 Home Medications ?Medication ?Instructions ?Recorded ?Confirmed ?Last Taken ?Type ascorbic acid (vitamin C) 1,000 mg 1 g PO BID 01/25/20 04/11/24 Unknown History tablet cholecalciferol (vitamin D3) 25 25 mcg PO DAILY 01/31/20 04/11/24 Unknown History mcg (1,000 unit) capsule ezetimibe 10 mg tablet (Zetia) 10 mg PO DAILY 04/11/24 04/11/24 Unknown History Exam Height,Weight and Vital Signs: Height 6 ft 2 in Weight 89.811 kg Pertinent Lab Results Pertinent Lab Results: Laboratory Tests 11/16/23 03/08/24 13:13 12:37 WBC 5.9 Hgb 13.4 L Hct 41.3 L Plt Count 261 Sodium 139 Potassium 4.9 Chloride 108 Carbon Dioxide 23 BUN 38 H Creatinine 2.39 H Narrative Narrative: Cardiac Device Check 01/2024 Details: Device check in our office today as requested by his EP provider Dr Crockett. Medtronic dual chamber PPM, battery 11.7 yrs, atrial and ventricular thresholds normal, AAIR- DDDR more, low rate 70, episode of AF on 02/02/24 lasting 7 hr 2 min, V rate 162, other episodes only seconds long. He has ATP therapy for AF and did recieve it on 02/01 episode. Device is not an ICD. No device changes needed. At this time he is AP/ VS with [facility] PACs. 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 Atherosclerotic cardiovascular disease Normally functioning cardiac pacemaker present Acute kidney injury Generalized anxiety disorder Osteoarthritis of knees, bilateral Obstructive sleep apnea (adult) (pediatric) DVT (deep venous thrombosis) Nasal polyp Asthma Nonrheumatic mitral valve regurgitation Cardiomyopathy Cerebral infarction due to embolism of unspecified cerebral artery PVC (premature ventricular contraction) Anxiety Allergic rhinitis Insomnia Congestive heart failure Gastroesophageal reflux disease Impaired glucose tolerance Congestive heart failure Lupus anticoagulant positive Paroxysmal atrial fibrillation Hypercholesterolemia Family History Family History Father HTN (hypertension) CVA (cerebral vascular accident) Mother Skin cancer Maternal Uncle Colon cancer Son No problems noted. Daughter No problems noted. Family/Other Breast cancer Paternal Uncle Colon cancer Surgical History Surgical History H/O hernia repair Ventral hernia Status post mitral valve repair History of cardiac radiofrequency ablation (~03/16/21) Status post arthroscopy of left knee History of cardioversion (~01/17/20) S/P medial meniscectomy of left knee History of arthroscopy of left knee Hx of repair of right rotator cuff History of tonsillectomy Social History Social History Housing: House Are you a primary child care lead teacher to a significant other at home: No Do you presently have visiting nurse or other home services: No Alcohol intake: never Patient Tobacco Use Status: Former Tobacco user Tobacco use type: Cigarette Years Smoked: 12 +/- e-Cigarette/Vaping Use: Never Used Second Hand Smoke Exposure: No Have you been hit, kicked, punched, or otherwise hurt by someone within the past year? If so, by whom?: No Are you DNR?: No Advance Directives: No Advance Directives Information Provided: Yes Recently lost weight without trying: No Nutrition Risks: No Nutritional Risk service: No Current occupational status: retired Cognitive needs: No Hearing needs: No Vision needs: No Meds Allergies Allergy/AdvReac Type Severity Reaction Status Date / Time gabapentin Allergy Severe Dizziness Verified 04/13/24 11:06 atorvastatin Allergy Intermediate Muscle Verified 04/13/24 11:06 cramps rosuvastatin Allergy Intermediate Muscle Verified 04/13/24 11:06 cramps Sulfa (Sulfonamide Allergy Mild RASH Verified 04/13/24 11:06 Antibiotics) [SULFA(SULFONAMIDE ANTIBIOTICS)] metoprolol AdvReac Severe Chest Verified 04/13/24 11:06 Pain, sob, dizziness amoxicillin AdvReac Mild Rash Verified 04/13/24 11:06 Home Medications ?Medication ?Instructions ?Recorded ?Confirmed ?Last Taken ?Type ascorbic acid (vitamin C) 1,000 mg 1 g PO BID 01/25/20 04/11/24 Unknown History tablet cholecalciferol (vitamin D3) 25 25 mcg PO DAILY 01/31/20 04/11/24 Unknown History mcg (1,000 unit) capsule ezetimibe 10 mg tablet (Zetia) 10 mg PO DAILY 04/11/24 04/11/24 Unknown History Exam Airway Mallampati Class: II TM Dist: >3cm Neck ROM: Full Heart: paced Lungs: cta Assessment and Plan Assessment Anesthesia Assessment: Anesthesia Plan Discussed Final Anesthetic Review NPO: Yes ASA Class: III Final Preanesthetic Review: No Changes in Pt Med Stat, Meds/Allgs Chart Reviewed and Consent Obtained/Reviewed Patient Risk: Intermediate Procedure Risk: Intermediate Anesthetic Plan Anesthetic Plan: MAC: Disposition: Standard PACU
[2024-04-13 11:04] VITALS: BMI 25.2
[2024-04-13] MEDS: Lactated Ringers 1,000 ML 50 ML IVCONT (11:14)
[2024-04-13 11:21] VITALS: BP 156/99; PULSE 85; RESP 18; TEMP 36.8; O2SAT 99
--- NOTE | 2024-04-13 11:33 | CA_ITS ---
Transesophageal Echocardiogram Patient (Last, First, Middle): Eliazar Quispe F Gender: Male Date of : 1950 Age: 74 Procedure Date: 04/13/2024 Procedure Type: Transesophageal Echocardiogram Location: OP Height: 187. cm Weight: 86. kg BSA: 2.12 m2 Heart Rate: 71 bpm BP: 162 / 90 mmHg Yardage Estimator: SB Referring MD: Jaylen Amin MD Symptoms: I48.0 - Paroxysmal atrial fibrillation Conclusion: ??? Remnant of left atrial appendage noted, s/p excision (1.5 x 0.7cm). No evidence of thrombus or spontaneous echo contrast. ??? If clinically significant atrial fibrillation, consider anti coagulation. Findings Procedure Information Consent was obtained prior to the procedure. Pre CESILIA oral cavity was checked and revealed no overcrowding. The adult 3D probe was passed with no difficulty. Left Ventricle Normal left ventricular cavity size. The left ventricular systolic function is normal. The visually estimated ejection fraction is between 55-60%. There is no evidence of regional wall motion abnormalities. Atria Remnant of left atrial appendage noted, s/p excision (1.5 x 0.7cm). No evidence of thrombus or spontaneous echo contrast. Aortic Valve There is a normal trileaflet aortic valve. There is no aortic valve stenosis. There is no aortic valve regurgitation. Mitral Valve There is mild to moderate mitral valve regurgitation. There is no mitral valve stenosis. s/p mitral valve repair. Pulmonic Valve The pulmonic valve was not well visualized. Tricuspid Valve There is mild tricuspid valve regurgitation. Great Vessels Small plaque is seen in the arch and descending thoracic aorta. Pericardium/Pleural There is no evidence of pericardial effusion. Prior Study Comparison No significant change compared to prior study dated: 11/29/2023. Updated by Jaylen Amin on 11:36 AM with Status of Final Jaylen Amin MD electronically signed on 04/15/2024 11:36:02 AM with status of Final
--- NOTE | 2024-04-13 12:38 | MHC.SHP ---
Pre-Procedural Eval Section A - 24 Hr Update-Section A only Date of Service: 04/13/24 The patient is an INPATIENT: Yes Section B - Complete if H&P > 30 days Chief Complaint: Paroxysmal atrial fibrillation Details of Present Illness: h/o mitral valve surgery; PAF; GABRIEL removal. Relevant Family History (Specify if Yes): No Relevant Social History: None Present Medications: see Short Stay Collaborative assessment (MV repair. ) Medical History: Significant History Allergies: Allergies Allergy/AdvReac Type Severity Reaction Status Date / Time gabapentin Allergy Severe Dizziness Verified 04/13/24 11:06 atorvastatin Allergy Intermediate Muscle Verified 04/13/24 11:06 cramps rosuvastatin Allergy Intermediate Muscle Verified 04/13/24 11:06 cramps Sulfa (Sulfonamide Allergy Mild RASH Verified 04/13/24 11:06 Antibiotics) [SULFA(SULFONAMIDE ANTIBIOTICS)] metoprolol AdvReac Severe Chest Verified 04/13/24 11:06 Pain, sob, dizziness amoxicillin AdvReac Mild Rash Verified 04/13/24 11:06 Review of Systems Review of Systems Comment: 10 system ROS -ve Exam Exam Comment: HEENT- normal Neck- normal Cardiac- S1S2+; no murmurs, gallops, rubs Rs- normal Abd/RECONCILIATION SPECIALIST- normal SKin- normal Neuro/psych- normal Plan I have reviewed the history and physical and performed a pertinent physical examination on my patient. No changes have occurred unless specified. Time Spent With Patient Time: Total time managing care of this patient today ____ minutes.
[2024-04-13 13:16] VITALS: BP 128/78; PULSE 72; RESP 16; TEMP 36.2; O2SAT 97
[2024-04-13 13:31] VITALS: BP 138/81; PULSE 72; RESP 16; O2SAT 97
[2024-04-13 13:46] VITALS: BP 146/83; PULSE 70; RESP 18; O2SAT 97
== END 2024-04-13 14:38 | disposition home or self-care (01) ==
PROVIDERS: PCP Internal Medicine; Visit Provider Internal Medicine
PROC: (CPT 93312; principal; 2024-04-13 12:30)
DX: I48.0 Paroxysmal atrial fibrillation (principal); I34.0 Nonrheumatic mitral (valve) insufficiency; I48.92 Unspecified atrial flutter; I50.9 Heart failure, unspecified; I49.3 Ventricular premature depolarization; I42.9 Cardiomyopathy, unspecified; I25.10 Atherosclerotic heart disease of native coronary artery without angina pectoris; Z95.0 Presence of cardiac pacemaker; N18.9 Chronic kidney disease, unspecified; E78.00 Pure hypercholesterolemia, unspecified; I82.409 Acute embolism and thrombosis of unspecified deep veins of unspecified lower extremity; F41.9 Anxiety disorder, unspecified; R73.02 Impaired glucose tolerance (oral); G47.33 Obstructive sleep apnea (adult) (pediatric); Z79.82 Long term (current) use of aspirin; Z79.899 Other long term (current) drug therapy; Z88.8 Allergy status to other drugs, medicaments and biological substances; Z88.2 Allergy status to sulfonamides; Z88.1 Allergy status to other antibiotic agents; Z98.890 Other specified postprocedural states; Z87.891 Personal history of nicotine dependence
CPT/HCPCS: 93312; J2003; J2250; J2704

== ENCOUNTER → 2024-04-13 11:33 | Outpatient (BNV) | payer MEDICARE, SELFPAY | PROVIDERS: PCP Internal Medicine; Visit Provider Internal Medicine | DX: I48.0 Paroxysmal atrial fibrillation (principal) | CPT/HCPCS: 93312 ==

== ENCOUNTER 2024-05-14 11:00 | Day surgery (SDC) | payer MEDICARE, SELFPAY ==
--- OUTSIDE RECORDS SUMMARY | 2024-05-03 16:31 | XMS_ITS | Data Portability ---
Author Organization [facility] - Misael Bardales s, [id number] Address [address] [place] [address] Assessment No assessment recorded. Plan of Treatment Reminders Order Date Submit Date Provider Last Modified By Organization Details Last Modified Time Details Appointments None recorded. Lab None recorded. Referral otolaryngol ogist referral - feeling dizzy and vertigo especially waking upm in morning. need further evaluation and treatment. 2022 023 [email or web address] 26 Pratik Rivera MD, [address] [facility], [facility] [address], [place], [address], 3 12:51:32 Procedures None recorded. Surgeries None recorded. Imaging None recorded. Medication Orders meclizine 25 mg tablet 2022 023 [id number], [address], [place], [id number], 19:15:43 Patient TargetsNo targets recorded. Patient Instructions Encounter Date Encounter Id Patient Instructions Last Modified By Organization Details Last Modified Time 06/06/2022 [id number] dizziness: care instructions Not available 06/06/2022 19:14:50 [...] Not available 06/06/2022 19:14:49 Reason for Referral Inventory Associate Referral fo r Benign paroxysmal positional vertigo [...] Address Organization Details Recorded Time Essential hypertension 10056666 Active 2022 IRIS COUVERTIE R null, [place] - [facility] 3 18:23:37 Acute kidney injury 86903431 Active 2022 IRIS COUVERTIE R null, [place] - [facility] 3 18:26:17 Insomnia 115912607 Active 2022 IRIS COUVERTIE R null, PA [...] Name and Address Organization Details Recorded Time 211722 Substance with sulfonami de structure and antibacte rial mechanism of action (substanc e) medicatio n Not available Not available Not available 06/06/2022 11828 8003 SNOMED IRIS COUVERTIE R null, [place] - [facility] 3 18:21:58 [id number] gabapenti n medicatio n dizziness Not available Not available 06/06/2022 59260 RxNorm IRIS COUVERTIE R null, [place] - [facility] 3 18:22:14 [id number] rosuvasta tin medicatio n edema Not available Not available 06/06/2022 34900 2 RxNorm KRISHNA PEREZ [facility] [...] TABLETS BY MOUTH EVERY DAY DIRECTED BY [facility] 06/06 completed Not Available [...] Updated DateTime 3 187.96 cm 23.8 kg/m2 75843.5 9 g 100 % 100 % 66 [...] Diagnosis/Indication Diagnosis SNOMED-CT Code Diagnosis ICD10 Code Diagnosis Note [id number] [address] [facility] [place] [address] 08/09/2016 14:01:54 08/09/2016 14:52:09 [id number] [address] [facility] [place] [address] 10/08/2019 14:19:37 10/08/2019 15:46:07 [id number] [address] [facility] [place] [address] 06/14/2020 09:23:40 06/14/2020 09:53:11 [id number] [address] [facility] [place] [address] 12/31/2018 10:08:17 12/31/2018 10:53:03 [id number] [address] [facility] [place] [address] 06/08/2016 13:08:05 06/08/2016 14:31:43 [id number] [address] [facility] [place] [address] 01/02/2020 17:09:44 01/02/2020 17:43:56 [id number] [address] [facility] [place] [address] 12/18/2019 15:16:32 12/18/2019 16:26:12 [id number] [address] [facility] [place] [address] 02/19/2016 13:00:02 02/19/2016 13:30:00 [id number] [address] [facility] [place] [address] 02/13/2016 15:03:43 02/13/2016 15:28:04 [id number] [address] [place] [address] [place] [address] 12/08/2017 08:46:06 12/08/2017 09:50:44 [id number] [address] [place] [address] [place] [address] 03/16/2020 15:48:34 03/16/2020 18:27:17 [id number] [address] [place] [address] [place] [address] 04/30/2020 13:25:07 04/30/2020 18:52:16 [id number] [facility] JAIM[facility] [address] [facility] [place] [address] 06/06/2022 15:33:14 07/27/2022 19:27:19 Left without being seen [id number] 9102 Z53.21 [id number] Leroy Crandall NP [address] [facility] [place] [address] 06/06/2022 17:13:56 06/06/2022 19:17:57 Benign paroxysmal positional vertigo [id number] H81.10 Health Concerns Section Related Observation LastModified by Organization Detai ls LastModified Time None Recorded Concern Status LastModified by Organization Details LastModified Time None Recorded Advance Directives Directive None Recorded Payers Encounter Date Sequence Insurance Name Policy Number Policy Shelby Covered Member ID Shelby Member ID Guarantor Name 03/16/2020 1 [place] [employer] Eliazar Quispe [id number] Eliazar Quispe 03/16/2020 2 [place] [id number] Eliazar Quispe [id number] Eliazar Quispe 04/30/2020 1 [place] [employer] Eliazar Quispe [id number] Eliazar Berriosinger 04/30/2020 2 [place] [id number] Eliazar Quispe [id number] Eliazar Berriosinger 06/14/2020 1 [place] [employer] [place] Eliazar Berriosinger [id number] Eliazar Berriosinger 06/14/2020 2 [place] [id number] Eliazar Berriosinger [id number] Eliazar Berriosinger 06/06/2022 1 [place] Eliazar Quispe [id number] Eliazar Berriosinger 06/06/2022 2 [place] [id number] Eliazar Berriosinger [id number] Eliazar Berriosinger 06/06/2022 1 [place] [employer] [place] Eliazar Quispe [id number] Eliazar Berriosinger 06/06/2022 2 [place] [id number] Eliazar Quispe [id number] Eliazar Quispe Notes Date Note Type [...] Crandall NP [address] [place], [address], [place] - [facility] 06/06/2022 19:16:09
--- OUTSIDE RECORDS SUMMARY | 2024-05-03 16:31 | XMS_ITS | Data Portability ---
Author Organization [facility], [facility], Primary Care [facility] Walk Address [address] [facility] [address] [place] [address] Care Team Providers Care Rib Puller Name Role Phone JORDON OROZCO Clinical Cardiac Electrophysiolo gist FRANCA VELA Pedigree Researcher [phone] ИВАН YANES Primary Care Provider HAN JONES Cardiac Surgeon CRISTINA LEONARD Video Editor Assessment Encounter Date Assessment Date Assessment LastModified [...] rhythm sinus bradycardia. 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 Device mode AAIR <=> DDDR 60-130 bpm. Lead parameters are stable. DIRECTOR OF SLOT OPERATIONS <0.1%, AP 93.1%. No atrial or ventricular [...] were made. He will refer to his programming instructor for any blood pressure control guidelines. He [...] on September 26 and occurred in the bi lead hours. The other 2 episodes were in [...] a stress test. He is seeing his programming instructor on December 02. The patient will bring this up with his programming instructor and I will send him a copy [...] I will discuss this with the patient's programming instructor to see if they can arrange for this where Mr. Quispe lives in [place]. We will await PET scan and genetics. I will see him back in the office in 6 months. I left a message on the patient's cell phone after our visit to discuss the above. I also left a message with his programming instructor asking him to call me to discuss [...] hour. His monitor is followed by his programming instructor. He continues to have frequent PVCs as [...] will obtain his recent echo from his programming instructor office. His main concern is fatigue, anemia and chronic kidney disease. He has follow-up with nephrology next week. I have asked him to call us if he develops any palpitations. He has close follow-up with his programming instructor. I would like to see him back [...] For Internal Use Only, Do Not Delete/merge, [id number] 02/04/2022 17:06:11 electroca rdiogram 2022 023 In-House Results, For Internal Use Only, Do Not Delete/merge, [id number] 05/27/2022 15:29:01 electroca rdiogram 2022 023 In-House Results, For Internal Use Only, Do Not Delete/merge, [id number] 11/26/2022 16:14:21 electroca rdiogram 2023 024 In-House Results, For Internal Use Only, Do Not Delete/merge, [id number] 06/06/2023 16:39:34 electroca rdiogram 2023 024 In-House Results, For Internal Use Only, Do Not Delete/merge, [id number] 12/05/2023 16:24:44 Medication Orders None recorded. Patient TargetsNo targets recorded. Patient Instructions Encounter Date Encounter Id Patient Instructions Last Modified By Organization Details Last Modified Time 02/04/2022 [id number] I spent a total of {{# of minutes 75#}} minutes on the same date of service providing uiun-ur-hwzs and dsb-msbo-ld-face patient care. Not available 02/04/2022 17:06:22 05/27/2022 [id number] - From an electrophysiology perspective, we feel it is low risk for you to discontinue taking Coumadin - We are STOPPING your Amiodarone - Please refer to your programming instructor's recommendations regarding your blood pressure recommendations - Follow up in 6 months for routine follow up Not available 05/27/2022 14:36:02 I spent a total of {{# of minutes 25#}} minutes on the same date of service providing xiem-yu-sidt and jht-gieo-pt-face patient care. Not available 05/27/2022 14:28:45 11/26/2022 [id number] I spent a total of {{# of minutes 35#}} minutes on the same date of service providing evwz-jm-umxb and mmf-uinf-nq-face patient care. Not available 11/26/2022 15:59:24 06/06/2023 [id number] I spent a total of {{# of minutes 35#}} minutes on the same date of service providing flkw-vc-ygro and rrb-clac-uk-face patient care. Not available 06/06/2023 16:54:15 12/05/2023 [id number] I spent a total of {{# of minutes 35#}} minutes on the same date of service providing xtel-si-wfrh and nur-oofh-yo-face patient care. Not available 12/05/2023 16:23:56 Reason for Referral None Reported. Results Created Date Observation Date Name Description Value Unit Range Abnormal Flag Note LastModifiedBy Organization Detail LastModifiedTime 02/05/20 22 02/04/2022 elect rocar diogr am No observ ation record ed. In-House Results For Internal Use Only, Do Not Delete/merge, [id number] 02/04/2022 17:06:10 02/06/20 22 02/04/2022 US, echoc ardio gram, trans thora cic, compl ete No observ ation record ed. [email or web address] [facility] Cardiology Office [address] [place], [address], 02/05/2022 14:18:08 03/23/20 22 03/21/2022 pacem kathy inter rogat ion (PROC ) No observ ation record ed. Not Available 03/23 12:18:08 04/06/20 22 03/29/2022 caro r monit or No observ ation record ed. [email or web address] Not Available 2021 13:52:07 05/27/19 23 05/27/2022 elect rocar diogr am No observ ation record ed. In-House Results For Internal Use Only, Do Not Delete/merge, [id number] 05/27/2022 15:25:52 05/27/19 elect rocar diogr am No observ ation record ed. [email or web address] Not Available 05/2022 14:03:56 05/28/19 23 05/27/2022 elect rocar diogr am No observ ation record ed. In-House Results For Internal Use Only, Do Not Delete/merge, [id number] 05/28/2022 11:23:34 05/28/19 23 05/27/2022 pacem kathy inter rogat ion (PROC ) No observ ation record ed. [email or web address] Not Available 2022 11:27:20 11/27/19 23 11/26/2022 elect rocar diogr am No observ ation record ed. YOUSUF In-House Results For Internal Use Only, Do Not Delete/merge, [id number] 11/26/2022 16:14:20 11/27/19 23 elect rocar diogr am No observ ation record ed. [email or web address] Not Available 10/2022 06:56:31 12/06/19 23 11/26/2022 devic e check (PROC ) No observ ation record ed. [email or web address] Not Available 2022 23:01:26 06/02/19 24 12/16/2022 trans -thor acic echoc ardio gram (TTE) (PROC ) No observ ation record ed. [facility] [address] [place] [address], [place], [address], 06/02/2023 13:58:09 06/06/19 24 06/06/2023 elect rocar diogr am No observ ation record ed. YOUSUF In-House Results For Internal Use Only, Do Not Delete/merge, [id number] 06/06/2023 16:39:33 06/06/19 24 elect rocar diogr am No observ ation record ed. Not Available 2023 16:43:35 06/19/19 24 06/08/2023 devic e check (PROC ) No observ ation record ed. [email or web address] Not Available 2023 11:37:54 06/22/19 24 06/22/2023 PET, heart No observ ation record ed. [email or web address] [facility] [address] [facility], [place], [address], 06/23/2023 09:16:18 12/05/19 24 12/05/2023 elect rocar diogr am No observ ation record ed. YOUSUF In-House Results For Internal Use Only, Do Not Delete/merge, [id number] 12/05/2023 16:25:03 12/05/19 24 elect rocar diogr am No observ ation record ed. Not Available 2023 16:25:04 12/06/19 24 11/29/2023 , echoc ardio gram No observ ation record ed. [email or web address] Not Available 10:41:26 12/11/19 24 12/05/2023 devic [...] Address Organization Details Recorded Time Atrial flutter 3905946 Active Jane Watt null, [place] - [facility] 2 14:43:55 Persisten t atrial fibrillat ion 636687952 Active Janeyovani Watt null, [place] - [facility] 2 14:44:26 Rupture of tendon 660267380 Active Nontrauma tic L ankle Jane Watt null, [place] - [facility] 2 14:45:26 History of cardiover vita 277396899284 08 [facility] [place] [facility] 2 14:45:57 Cerebrova scular accident 734253150 Active Janeyovani Watt null, [place] - [facility] 2 14:46:07 Dyspnea 928284204 Active Janeyovani Watt null, [place] - [facility] 2 14:46:19 Insomnia 159035771 Active Janeyovani Watt null, [place] - [facility] 2 14:46:34 Nerve injury 91476234 Active Right Arm Jane Watt null, [place] - [facility] 2 14:47:21 Arthritis 5619325 Active Right Foot Jane Watt null, [facility] 2 14:47:56 Cardiac arrhythmi a 017374530 Active 2022 Arden Cosme null, [facility] 3 13:53:39 Palpitati ons 14689303 Active 2022 ARCHANA CARIAS [address] [place] [address], [place] [address], [facility] 3 14:57:10 Paroxysma l atrial fibrillat ion 294712422 Active [address] [place] [address], [place] [address], [facility] 3 14:59:34 Ventricul ar premature beats 52222311 Active [address] [place] [address], [place] [address], [facility] 3 14:59:56 Left atrial appendage absent 637922029 Active 2022 s/p clipping of GABRIEL at time of MV repair, 2021 ARCHANA Cooper [address] [place] [address], [place], [place], [address] [place] [address], [facility] 4 09:17:42 Left bundle branch hemiblock 5985851 Active 2022 ARCHANA CARIAS [address] [place] [address], [place], [place], [address] [place] [address], [facility] 3 15:03:55 Right bundle branch block AND left anterior fascicula r block 02652512 Active [address] [place] [address], [place], [place], [address] [place] [address], [facility] 3 15:26:05 Cardiac pacemaker in situ 224188964 Active DEVICE MODEL [id number] [place]? ? XT MRI DEVICE SERIAL NUMBER [id number] DEVICE TYPE Pacemaker DATE OF IMPLANT 28-Nov-19 22 pt transferr ed into 's remote clinic from [place] 12/13/2023 Phoebe Mccracken RN [address] [place] [address], [place], [address], [facility] 12:20:39 Nonsustai marcelo ventricul ar tachycard ia 824795776 Active 2023 ARCHANA Cooper [address] [place] [address], [place], [address], [place] [facility] 12:44:39 Problem Notes None recorded. Procedures Surgical History Date Name Laterality Status Provider Name and Address Organization Details Recorded Time 12/05/19 24 In-person Programming of Pacemaker: Dual Chamber CPT 86265,26 completed ARCHANA Cooper [address] [place] [address], [place], [address], [place] [facility] 12/05/2023 16:20:31 06/06/19 24 In-person Programming of Pacemaker: Dual Chamber CPT 15762,26 completed ARCHANA Cooper [address] [place] [address], [place], [address], [place] - [facility] 06/07/2023 12:27:03 11/27/19 23 In-person Programming of Pacemaker: Dual Chamber CPT 23640,26 completed ARCHANA Cooper [address] [place] [address], [place], [address], [place] - [facility] 11/26/2022 16:11:31 05/27/19 23 In-person Programming of Pacemaker: Dual Chamber CPT 35409,26 completed ARCHANA CARIAS [address] [place] [address], [place], [address], [facility] 05/27/2022 15:17:02 04/25/19 23 Hernia repair: Incisional completed Jane Watt [place] - [facility] 12/05/2023 15:26:37 02/05/20 22 In-person Programming of Pacemaker: Dual Chamber CPT 49472,26 completed Jordon Orozco MD [address], [place], [address], [place] - [facility] 02/04/2022 17:05:28 11/28/19 22 cardiac pacemaker procedure completed Han Mills RN [address], [place], [address], [place] - [facility] 02/04/2022 16:16:27 11/13/19 22 Maze procedure completed Han Mills RN [address], [place], [address], [place] - [facility] 11/24/2021 13:27:31 11/13/19 22 atrial appendage excision completed Han Mills RN [address], [place], [address], [place] - [facility] 11/24/2021 13:27:59 04/25/19 22 Other completed Jane ALLEN - [facility] 12/05/2023 15:26:37 04/25/19 22 Pacemaker completed Jane ALLNE - [facility] 12/05/2023 15:26:37 [...] of mitral valve completed Han Mills, RN [address] [place] [address],[address], [place], [address], [place] - [facility] 11/24/2021 13:31:59 Imaging Results Imaging Date Name Status LastModified by Organization Details LastModified Time 02/04/2022 electrocardiogram completed In-Hous e Results For Internal Use Only, Do Not Delete/merge, [id number] 02/04/2022 17:06:10 02/04/2022 US, echocardiogram, transthoracic, complete completed [email or web address] [facility] Cardiology Office [address] [facility], [place], [address], 02/05/2022 14:18:08 03/21/2022 pacemaker interrogation (PROC) completed [email or web address] Information not available 03/23/2022 12:18:08 03/29/2022 holter monitor completed [email or web address] Informatio n not available 04/09/2022 13:52:07 05/27/2022 electrocardiogram completed In-Hous e Results For Internal Use Only, Do Not Delete/merge, [id number] 05/27/2022 15:25:52 05/27/2022 electrocardiogram completed Infor mation not available 05/27/2022 14:03:56 05/27/2022 electrocardiogram completed [email or web address] In-Hous e Results For Internal Use Only, Do Not Delete/merge, [id number] 05/28/2022 11:23:34 05/27/2022 pacemaker interrogation (PROC) completed [email or web address] Information not available 05/28/2022 11:27:20 11/26/2022 electrocardiogram completed [email or web address] In-Hous e Results For Internal Use Only, Do Not Delete/merge, [id number] 11/26/2022 16:14:20 11/26/2022 electrocardiogram completed Infor mation not available 11/29/2022 06:56:31 11/26/2022 device check (PROC) completed [email or web address] Infor mation not available 12/05/2022 23:01:26 12/16/2022 trans-thoracic echocardiogram (TTE) (PROC) completed [email or web address] [facility] [address] [place] [address], [address], 06/02/2023 13:58:09 06/06/2023 electrocardiogram completed YOUSUF In-Hous e Results For Internal Use Only, Do Not Delete/merge, [id number] 06/06/2023 16:39:33 06/06/2023 electrocardiogram completed [email or web address] Informa tion not available 06/06/2023 16:43:35 06/08/2023 device check (PROC) completed API-440 Infor mation not available 06/19/2023 11:37:54 06/22/2023 PET, heart completed [email or web address] [facility] [address] [place] [address] [address], [place], [address], 06/23/2023 09:16:18 12/05/2023 electrocardiogram completed [email or web address] In-Hous e Results For Internal Use Only, Do Not Delete/merge, [id number] 12/05/2023 16:25:03 12/05/2023 electrocardiogram completed Informa tion not available 12/05/2023 16:25:04 11/29/2023 US, echocardiogram completed [email or web address] Inf ormation not available 12/06/2023 10:41:26 12/05/2023 [...] Name and Address Organization Details Recorded Time 008050 metoprolo l Not available dizziness palpitati ons severe Not available Not available 09/23/2021 6918 RxNorm Jane guajardo [facility] 2 14:56:20 319747 Substance with sulfonami de structure and antibacte rial mechanism of action (substanc e) medicatio n Not available Not available Not available 09/23/2021 40410 8003 SNOMED Unsur e Child moreland react ion Jane guajardo [facility] 2 14:57:02 884386 gabapenti n medicatio n other moderate Not available 02/04/2022 27943 RxNorm Beni ce & gate Han Mills RN [address], [place], [address], [facility] 2 16:11:28 320930 Product containin g 3-hydroxy -3-methyl glutaryl- coenzyme A reductase inhibitor (product) medicatio n muscle cramps severe Not available 02/04/2022 15429 009 SNOMED Han Mills RN [address], [place], [address], [facility] 2 16:12:03 555554 amoxicill in medicatio n rash Not available Not available 11/26/2022 723 RxNorm David guajardo [facility] 3 15:16:47 Medications Name [...] TABLETS BY MOUTH EVERY DAY DIRECTED BY [facility] 11/26 completed Not Available Not Available Not [...] Updated DateTime 3 187.96 cm 23.6 kg/m2 43801 g 16 /min 98 % 98 % 67 /min 108 mm[Hg] 70 mm[Hg] Arden Cosme [facility] 3 13:53:30 Date Recorded Body height Body mass index (BMI) Body weight Systolic blood pressure Diastolic blood pressure Provider Name and Address Organization Details Last Updated DateTime 11/26/2022 187.96 cm 23.1 kg/m2 17201.63 g 112 mm[Hg] 64 mm[Hg] David Rivas [facility] 3 15:22:35 Date Recorded Body height Body mass index (BMI) Body weight Respiratory rate Heart rate Oxygen saturation Oxygen saturation in Arterial blood by Pulse oximetry Systolic blood pressure Diastolic blood pressure Provider Name and Address Organization Details Last Updated DateTime 4 187.96 cm 23.1 kg/m2 08162.6 3 g 16 /min 62 /min 99 % 99 % 110 mm[Hg] 62 mm[Hg] Lona Arellano [facility] 4 15:20:27 Date Recorded Body height Body mass index (BMI) Body weight Respiratory rate Body temperature Oxygen saturation Oxygen saturation in Arterial blood by Pulse oximetry Heart rate Systolic blood pressure Diastolic blood pressure Provider Name and Address Organization Details Last Updated DateTime 4 187.96 cm 24.4 kg/m2 16665.5 5 g 16 /min 99.1 [degF] 99 % 99 % 55 /min 126 mm[Hg] 70 mm[Hg] Jane Caldwell [facility] 15:37:28 Date Recorded Body height Body mass index (BMI) Body weight Respiratory rate Provider Name and Address Organization Details Last Updated DateTime 02/04/2022 187.96 cm 23.1 kg/m2 58262.63 g 16 /min Han Mills RN [address], [place], [address] , [facility] 02/04/2022 16:10:00 Social History Question Answer Notes LastModified by Organizat ion Details LastModified Time Tobacco Smoking Status Former Smoker quit greater than 40 years Annette Cuellar RN [address], [place], [address], [facility], [facility] 09/28/2021 13:21:29 Do You Have An Advance Directive? Yes [email or web address] Information not available 06/06/2023 What Is Your Level Of Alcohol Consumption? Occasional Information not available 11/26/2022 How Many Times Per Week Do You Consume Alcohol? Less Than 1 Time Per Week Information not available 06/06/2023 Is Blood Transfusion Acceptable In An Emergency? Yes [email or web address] Information not available 06/06/2023 What Is Your Level Of Caffeine Consumption? Moderate 1-2 Cups Of Coffee Information not available 06/06/2023 What Type Of Diet Are You Following? CARDIAC Information not available 09/28/2021 When Did You Quit Smoking? 16+yearssincel astcigarette Information not available 06/06/2023 Do You Have A Psych Assistant (loved One Involved In Your Care)? No Information not available 11/26/2022 Do You Feel Safe At Home? Yes Information not available 09/28/2021 Over The Last 3 Months, Have You Struggled With Housing? No [email or web address] Information not available 12/05/2023 Over The Last 3 Months, Have You Struggled With Access To Food? No [email or web address] Information not available 12/05/2023 Over The Last 3 Months, Have You Struggled With Utilities? No [email or web address] Information not available 12/05/2023 Over The Last 3 Months, Have You Struggled With Transportation? No [email or web address] Information not available 12/05/2023 Over The Last 3 Months, Have You [place] Unsafe In Your Relationship? No [email or web address] Information not available 12/05/2023 What Was The Date Of Your Most Recent Tobacco Screening? 12/05/2023 [email or web address] Information not available 12/05/2023 How Many Children Do You Have? 2 Information not available 09/28/2021 Do You Use Any Illicit Or Recreational Drugs? No [email or web address] Information not available 06/06/2023 Has Tobacco Cessation Counseling Been Provided? No [email or web address] Information not available 12/05/2023 How Many Years Have You Smoked Tobacco? 15 Information not available 06/06/2023 Do You Or Have You Ever Used Any Other Forms Of Tobacco Or Nicotine? No Information not available 06/06/2023 Sex: Male Functional Status Question Answer Note LastModified by Organizat ion Details LastModified Time What is your exercise level? Occasional [email or web address] Information not available 06/06/2023 Mental Status None recorded. Family History Relationship Description Onset Age of this Age Resolved Age Notes LastModified by Organization Details LastModified Time Mother Dementia 97 Not availa ble 09/23/2021 14:55:32 Father Family history of stroke 87 [email or web address] Not available 04/2021 14:55:47 Notes:11/26/22 JG Medical History Condition Response Gout N Atrial Fibrillation Y High Blood Pressure N Thyroid problems N Asbestos exposure N Blood disorders N Colonoscopy N Glaucoma N COPD N Migraine Headaches N Kidney disease or problem N Bleeding tendencies N Seizures, convulsions, epilepsy N Depression, mental illness N Hemorrhoids N Obesity N Arthritis Y Angina pectoris N Cancer N Stroke Y High cholesterol N Blood clotting in lungs or legs Y Venereal disease N Vitamin deficiency N Arrhythmia Y Jaundice or liver disease N Fibromyalgia N Intestinal Problems - Ulcer, Hiatal [place] [...] SNOMED-CT Code Diagnosis ICD10 Code Diagnosis Note [id number] Devorah Pan APRN Cardiac EP [place] [address] [place] [address] 09/28/2021 12:47:43 09/28/2021 14:08:29 Cardiac arrhythmia 478884844 I49.9 Paroxysmal atrial fibrillation 424909686 I48.0 Cardiomyopathy 26188129 I42.9 [id number] Jordon Orozco MD Cardiac EP [place] [address] [facility],[address] [place] [address] 02/04/2022 15:47:13 02/04/2022 17:17:51 Palpitations 19343660 R00.2 [id number] ARCHANA CARIAS Cardiac EP [place] [address] [place] [address] 05/27/2022 13:34:44 05/27/2022 14:36:21 Cardiac arrhythmia 247555055 I49.9 Palpitations 78656004 R0 0.2 History of radiofrequency ablation operation for arrhythmia 547330728 Z98.890 Paroxysmal atrial fibrillation 173450843 I48.0 Ventricula r premature beats 70125303 I49.3 History of maze procedure for atrial fibrillation 801802857 Z98.890 History of repair of mitral valve 211848218 Z98.890 Left atria l appendage absent 619433479 Q20.8 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 52319295 I44.4 Cardiomyopathy 92294829 I42.9 [id number] ARCHANA Cooper Cardiac EP JENNIFERP [place] [address] [facility] [address] [place] [address] 11/26/2022 14:57:35 11/26/2022 16:03:00 Cardiac arrhythmia 513760468 I49.9 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 24019628 I44.4 Persistent atrial fibrillation 526247179 I48.19 Cardiac pa cemaker in situ 191289753 Z95.0 [id number] Angelita Butler PA Cardiac EP [place]P [place] [address] [facility],[address] [address] 06/06/2023 14:43:25 06/06/2023 16:06:44 Cardiac arrhythmia 369362199 I49.9 Atrial flutter 9977981 I 48.92 Cardiac pa cemaker in situ 842138229 Z95.0 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 23241938 I44.4 Nonsustain ed monomorphic ventricular tachycardia 3579285990 I47.29 [id number] Angelita ButlerARCHANA Cardiac EP TEMP [place] 9 [facility],[address] [address] 12/05/2023 15:13:26 12/05/2023 16:18:04 Cardiac arrhythmia 002221585 I49.9 Atrial flutter 2868258 I 48.92 Cardiac pa cemaker in situ 827415768 Z95.0 Nonsustain ed ventricular tachycardia 156626923 I47.20 Health Concerns Section Related Observation LastModified by Organization Detai ls LastModified Time None Recorded Concern Status LastModified by Organization Details LastModified Time None Recorded Advance Directives Directive Y: Payers Encounter Date Sequence Insurance Name Policy Number Policy Shelby Covered Member ID Shelby Member ID Guarantor Name 02/04/2022 1 MEDICARE [place]: NGS Eliazar Quispe [id number] Eliazar Quispe 02/04/2022 2 [place] [id number] Eliazar Quispe [id number] Eliazar Quispe 05/27/2022 1 MEDICARE [place]: NGS Eliazar Quispe [id number] Eliazar Quispe 05/27/2022 2 [place] [id number] Eliazar Dowlingjanelle [id number] Eliazar Quispe 11/26/2022 1 MEDICARE [place]: NGS Eliazar Quispe [id number] 24 Eliazar Quispe 11/26/2022 2 [place] SUPPLEMENT) [id number] Eliazar Qusipe [id number] Eliazar Quispe 06/06/2023 1 MEDICARE B-CT: NGS Eliazar Quispe [id number] 24 Eliazar Quispe 06/06/2023 2 [place]) [id number] Eliazar Quispe [id number] Eliazar Quispe 12/05/2023 1 MEDICARE B-CT: DYLON Quispe [id number] Eliazar Quispe 12/05/2023 2 [place]) [id number] Eliazar Quispe [id number] 248 Eliazar Quispe Notes Date Note Type [...] excellent health. 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 He was referred to Dr. White at [facility]. As far as I can tell, [...] that time.More recently, he was admitted to [facility] on 01/18/20 with increasing shortness of breath [...] that admission, he had an echocardiogram at [facility] done on 01/16/20. 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 His vitamin B12 level was at [...] also showed 2500 PACs. We reviewed his Adreima ari which showed episodes of possible A. [...] any cardiac complaints. He was using his Vidimaxa ari routinely which was showing sinus rhythm. A Holter monitor done prior to our visit showed a significant decline in his PVC burden and PAC burden. We did not make any changes to his medication. I asked that he follow-up with his programming instructor regarding the mitral regurgitation noted on his echocardiogram.He did have a hernia repair shortly after that visit.However in December 2020 he was found to have atrial flutter on his Connollya ari which was also confirmed on an EKG.He was brought to the EP lab on March 16, 2021 by and underwent a successful ablation of mitral valve flutter with both epicardial and endocardial ablation.He was last seen in the office at [facility] in April 2021. He had been doing well since his procedure and denied any recurrence of arrhythmias or palpitations. He was using his [employer] monitor and did not note any atrial fibrillation or rapid heart rates. He reported occasional chest discomfort which she described as tightness and it was not exertional. He had a stress test in May 2020 that did not show any ischemia. We asked him to follow-up with his programming instructor regarding need for further work-up. His EKG was unchanged compared to prior tracings and his cardiac examination was within normal limits with the exception of occasional ectopic beats. We deferred a repeat echocardiogram to his programming instructor given the findings of mitral regurgitation on his last echocardiogram. He remained anticoagulated with Eliquis for his [id number] score of 4. We discussed the importance [...] like getting out of bed. Despite his programming instructor increasing his carvedilol dose he has not [...] has not lowered his heart rate, Dr. Oorzco provided Eliazar with instructions on decreasing the [...] the procedure. We will defer to his programming instructor for longitudinal monitoring of his mitral regurgitation. [...] amiodarone. I spoke to Dr. Vela his programming instructor 10/01/2021. It was felt that he might [...] he is going to consult with a crocheter. Overall again however he feels significantly improved and is getting back to himself. I would note that I did have an echocardiogram today at [facility] we will be getting the results. He did asked me whether or not he needs to continue CPAP mask. I suggested that he consider another sleep study going forward. Certainly if he does not have sleep apnea he does not need the mask. Sleep apnea however his appointment because of A. fib and certainly if he has sleep apnea this should be continued. Jordon Orozco MD [address] [place] [address].,[address], [place], [address], [facility] 02/04/2022 17:11:18 05/27/2022 text/html To review, Mr. [...] excellent health. 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 He was referred to Dr. White at [facility]. As far as I can tell, [...] that time.More recently, he was admitted to [facility] on 01/18/20 with increasing shortness of breath [...] that admission, he had an echocardiogram at [facility] done on 01/16/20. 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 His vitamin B12 level was at [...] also showed 2500 PACs. We reviewed his Adreima ari which showed episodes of possible A. [...] any cardiac complaints. He was using his [employer] ari routinely which was showing sinus rhythm. A Holter monitor done prior to our visit showed a significant decline in his PVC burden and PAC burden. We did not make any changes to his medication. I asked that he follow-up with his programming instructor regarding the mitral regurgitation noted on his echocardiogram.He did have a hernia repair shortly after that visit.However in December 2020 he was found to have atrial flutter on his Adreima ari which was also confirmed on an EKG.He was brought to the EP lab on March 16, 2021 by and underwent a successful ablation of mitral valve flutter with both epicardial and endocardial ablation.He was last seen in the office at [facility] in April 2021. He had been doing well since his procedure and denied any recurrence of arrhythmias or palpitations. He was using his Adreima monitor and did not note any atrial fibrillation or rapid heart rates. He reported occasional chest discomfort which she described as tightness and it was not exertional. He had a stress test in May 2020 that did not show any ischemia. We asked him to follow-up with his programming instructor regarding need for further work-up. His EKG was unchanged compared to prior tracings and his cardiac examination was within normal limits with the exception of occasional ectopic beats. We deferred a repeat echocardiogram to his programming instructor given the findings of mitral regurgitation on his last echocardiogram. He remained anticoagulated with Eliquis for his [id number] score of 4. We discussed the importance [...] like getting out of bed. Despite his programming instructor increasing his carvedilol dose he has not [...] the procedure. We will defer to his programming instructor for longitudinal monitoring of his mitral regurgitation. [...] amiodarone. I spoke to Dr. Vela his programming instructor 10/01/2021. It was felt that he might [...] he is going to consult with a crocheter. Overall again however he feels significantly improved and is getting back to himself. I would note that I did have an echocardiogram today at [facility] we will be getting the results. He [...] very active. He will be seeing his programming instructor next week. He asked that we verify [...] on Coumadin for anticoagulation. ARCHANA CARIAS [address], [place], [address], [facility], [facility] 05/27/2022 15:28:36 11/26/2022 text/html [...] excellent health. 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 He was referred to Dr. White at [facility]. As far as I can tell, [...] that time.More recently, he was admitted to [facility] on 01/18/20 with increasing shortness of breath [...] that admission, he had an echocardiogram at [facility] done on 01/16/20. 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 Quipse is an extremely complicated case. He has [...] distribution.His preadmission lab studies were drawn at [facility]. His vitamin B12 level was at [...] also showed 2500 PACs. We reviewed his Adreima ari which showed episodes of possible A. [...] any cardiac complaints. He was using his Adreima ari routinely which was showing sinus rhythm. A Holter monitor done prior to our visit showed a significant decline in his PVC burden and PAC burden. We did not make any changes to his medication. I asked that he follow-up with his programming instructor regarding the mitral regurgitation noted on his echocardiogram.He did have a hernia repair shortly after that visit.However in December 2020 he was found to have atrial flutter on his Adreima ari which was also confirmed on an EKG.He was brought to the EP lab on March 16, [address] Deras and underwent a successful ablation of mitral valve flutter with both epicardial and endocardial ablation. He was seen at [facility] in April 2021. He denied any recurrence of arrhythmias or palpitations. He was using his cardia monitor daily which did not show any atrial fibrillation or rapid heartbeats. He reported occasional chest discomfort and we asked him to follow-up with his programming instructor. We also felt he should have another [...] remote monitoring is being followed by his programming instructor. ARCHANA Cooper [address] [place] [address],[address], [place], [address], [facility], [facility] 11/26/2022 16:26:06 06/06/2023 text/html [...] excellent health. 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 He was referred to Dr. White at [facility]. As far as I can tell, [...] that time.More recently, he was admitted to [facility] on 01/18/20 with increasing shortness of breath [...] that admission, he had an echocardiogram at [facility] done on 01/16/20. 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 His vitamin B12 level was at [...] also showed 2500 PACs. We reviewed his Adreima ari which showed episodes of possible A. [...] any cardiac complaints. He was using his Adreima ari routinely which was showing sinus rhythm. A Holter monitor done prior to our visit showed a significant decline in his PVC burden and PAC burden. We did not make any changes to his medication. I asked that he follow-up with his programming instructor regarding the mitral regurgitation noted on his echocardiogram.He did have a hernia repair shortly after that visit.However in December 2020 he was found to have atrial flutter on his Adreima ari which was also confirmed on an EKG.He was brought to the EP lab on March 16, [address] Deras and underwent a successful ablation of mitral valve flutter with both epicardial and endocardial ablation. He was seen at [facility] in April 2021. He denied any recurrence of arrhythmias or palpitations. He was using his cardia monitor daily which did not show any atrial fibrillation or rapid heartbeats. He reported occasional chest discomfort and we asked him to follow-up with his programming instructor. We also felt he should have another [...] a Medtronic dual-chamber unit which is an [place] XT DR device. The device is programmed [...] and he had a follow-up with his programming instructor. PVC counters showed 75/h. He had an [...] to his discomfort. He is seeing his programming instructor tomorrow. He has a home monitor which is being followed by his programming instructor. ARCHANA Cooper [address] [place] [address],[address], [place], [address], [facility], [facility] 06/08/2023 10:07:34 12/05/2023 text/html [...] excellent health. 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 He was referred to Dr. White at [facility]. As far as I can tell, [...] that time.More recently, he was admitted to [facility] on 01/18/20 with increasing shortness of breath [...] that admission, he had an echocardiogram at [facility] done on 01/16/20. 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 His vitamin B12 level was at [...] also showed 2500 PACs. We reviewed his Adreima ari which showed episodes of possible A. [...] any cardiac complaints. He was using his Adreima ari routinely which was showing sinus rhythm. A Holter monitor done prior to our visit showed a significant decline in his PVC burden and PAC burden. We did not make any changes to his medication. I asked that he follow-up with his programming instructor regarding the mitral regurgitation noted on his echocardiogram.He did have a hernia repair shortly after that visit.However in December 2020 he was found to have atrial flutter on his Adreima ari which was also confirmed on an EKG.He was brought to the EP lab on March 16, [address] Deras and underwent a successful ablation of mitral valve flutter with both epicardial and endocardial ablation. He was seen at [facility] in April 2021. He denied any recurrence of arrhythmias or palpitations. He was using his cardia monitor daily which did not show any atrial fibrillation or rapid heartbeats. He reported occasional chest discomfort and we asked him to follow-up with his programming instructor. We also felt he should have another [...] a Medtronic dual-chamber unit which is an [place] XT DR device. The device is programmed [...] and he had a follow-up with his programming instructor. PVC counters showed 75/h. He had an [...] breath, palpitations, near-syncope or syncope. ARCHANA Cooper [address] [place] [address].,[address], [place], [address], [facility], [facility] 12/05/2023 16:24:46
[2024-05-10 12:47] VITALS: BMI 25.2
[2024-05-14] VITALS (7 sets, daily range): BP systolic 130–147; BP diastolic 72–88; PULSE 70–77; RESP 16–18; TEMP 36.1–37.5; O2SAT 98–100; BMI 24.8
--- NOTE | ~2024-05-14 | FL_ITS ---
EXAMINATION: FL GUIDANCE ONLY HISTORY: CYTOSCOPY, URETEROSCOPY, RETRO, LASER WITH STENT PL COMPARISON: None available. TECHNIQUE: Fluoroscopy time: 240.9 seconds. Cumulative Dose: 73.69 mGy. Images: 2. FINDINGS: Fluoroscopic spot films were obtained during placement of a right nephroureteral stent. A collection of contrast is noted which likely represents a dilated renal pelvis. FL/FL guidance in OR IMPRESSION: Fluoroscopy during procedure. Please see procedure report for additional information. Electronically signed by: Branden Wolf MD 05/15/2024 07:56 AM ARIA
--- OUTSIDE RECORDS SUMMARY | 2024-05-14 11:34 | XMS_ITS | Data Portability ---
Author Organization [facility], [facility], [facility] Address [address] [place] [address] Care Team Providers Care Insurance Producer Name Role Phone JORDON OROZCO Clinical Cardiac Electrophysiolo gist FRANCA VELA Enrollment Eligibility Representative ИВАН YANES Primary Care Provider HAN JONES Cardiac Surgeon CRISTINA LEONARD Beauty Sales Advisor Assessment Encounter Date Assessment Date Assessment LastModified [...] rhythm sinus bradycardia. 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 Device mode AAIR <=> DDDR 60-130 bpm. Lead parameters are stable. 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 No atrial or ventricular [...] were made. He will refer to his engineering research manager for any blood pressure control guidelines. He [...] on September 26 and occurred in the orthophoto tech/draftsman hours. The other 2 episodes were in [...] a stress test. He is seeing his engineering research manager on December 02. The patient will bring this up with his engineering research manager and I will send him a copy [...] I will discuss this with the patient's engineering research manager to see if they can arrange for this where Mr. Quispe lives in [place]. We will await PET scan and genetics. I will see him back in the office in 6 months. I left a message on the patient's cell phone after our visit to discuss the above. I also left a message with his engineering research manager asking him to call me to discuss [...] hour. His monitor is followed by his engineering research manager. He continues to have frequent PVCs as [...] will obtain his recent echo from his engineering research manager office. His main concern is fatigue, anemia and chronic kidney disease. He has follow-up with nephrology next week. I have asked him to call us if he develops any palpitations. He has close follow-up with his engineering research manager. I would like to see him back [...] For Internal Use Only, Do Not Delete/merge, [id number] 02/04/2022 17:06:11 electroca rdiogram 2022 023 In-House Results, For Internal Use Only, Do Not Delete/merge, [id number] 05/27/2022 15:29:01 electroca rdiogram 2022 023 In-House Results, For Internal Use Only, Do Not Delete/merge, [id number] 11/26/2022 16:14:21 electroca rdiogram 2023 024 In-House Results, For Internal Use Only, Do Not Delete/merge, [id number] 06/06/2023 16:39:34 electroca rdiogram 2023 024 In-House Results, For Internal Use Only, Do Not Delete/merge, [id number] 12/05/2023 16:24:44 Medication Orders None recorded. Patient TargetsNo targets recorded. Patient Instructions Encounter Date Encounter Id Patient Instructions Last Modified By Organization Details Last Modified Time 02/04/2022 [id number] I spent a total of {{# of minutes 75#}} minutes on the same date of service providing icix-oo-coha and bao-vqfc-iz-face patient care. Not available 02/04/2022 17:06:22 05/27/2022 [id number] - From an electrophysiology perspective, we feel it is low risk for you to discontinue taking Coumadin - We are STOPPING your Amiodarone - Please refer to your engineering research manager's recommendations regarding your blood pressure recommendations - Follow up in 6 months for routine follow up Not available 05/27/2022 14:36:02 I spent a total of {{# of minutes 25#}} minutes on the same date of service providing ejns-mr-wjkg and egf-aajt-fh-face patient care. Not available 05/27/2022 14:28:45 11/26/2022 [id number] I spent a total of {{# of minutes 35#}} minutes on the same date of service providing vksu-qg-trof and rdu-hbat-ll-face patient care. Not available 11/26/2022 15:59:24 06/06/2023 [id number] I spent a total of {{# of minutes 35#}} minutes on the same date of service providing fpcw-by-dyfm and vzf-ckfd-bx-face patient care. Not available 06/06/2023 16:54:15 12/05/2023 [id number] I spent a total of {{# of minutes 35#}} minutes on the same date of service providing owfh-zc-hjvb and wee-mqlw-yk-face patient care. Not available 12/05/2023 16:23:56 Reason for Referral None Reported. Results Created Date Observation Date Name Description Value Unit Range Abnormal Flag Note LastModifiedBy Organization Detail LastModifiedTime 02/05/20 22 02/04/2022 elect rocar diogr am No observ ation record ed. In-House Results For Internal Use Only, Do Not Delete/merge, [id number] 02/04/2022 17:06:10 02/06/20 22 02/04/2022 US, echoc ardio gram, trans thora cic, compl ete No observ ation record ed. [email or web address] [facility] [address] [place], [address], 02/05/2022 14:18:08 03/23/20 22 03/21/2022 pacem kathy inter rogat ion (PROC ) No observ ation record ed. [email or web address] Not Available 03/23 12:18:08 04/06/20 22 03/29/2022 caro r monit or No observ ation record ed. [email or web address] Not Available 2021 13:52:07 05/27/19 23 05/27/2022 elect rocar diogr am No observ ation record ed. In-House Results For Internal Use Only, Do Not Delete/merge, [id number] 05/27/2022 15:25:52 05/27/19 elect rocar diogr am No observ ation record ed. [email or web address] Not Available 05/2022 14:03:56 05/28/19 23 05/27/2022 elect rocar diogr am No observ ation record ed. [email or web address] In-House Results For Internal Use Only, Do Not Delete/merge, [id number] 05/28/2022 11:23:34 05/28/19 23 05/27/2022 pacem kathy inter rogat ion (PROC ) No observ ation record ed. Not Available 2022 11:27:20 11/27/19 23 11/26/2022 elect rocar diogr am No observ ation record ed. [email or web address] In-House Results For Internal Use Only, Do Not Delete/merge, [id number] 11/26/2022 16:14:20 11/27/19 23 elect rocar diogr am No observ ation record ed. [email or web address] Not Available 10/2022 06:56:31 12/06/19 23 11/26/2022 devic e check (PROC ) No observ ation record ed. [email or web address] Not Available 2022 23:01:26 06/02/19 24 12/16/2022 trans -thor acic echoc ardio gram (TTE) (PROC ) No observ ation record ed. [facility] [address] [place] [address], [place], [address], 06/02/2023 13:58:09 06/06/19 24 06/06/2023 elect rocar diogr am No observ ation record ed. [email or web address] In-House Results For Internal Use Only, Do Not Delete/merge, [id number] 06/06/2023 16:39:33 06/06/19 24 elect rocar diogr am No observ ation record ed. Not Available 2023 16:43:35 06/19/19 24 06/08/2023 devic e check (PROC ) No observ ation record ed. [email or web address] Not Available 2023 11:37:54 06/22/19 24 06/22/2023 PET, heart No observ ation record ed. [email or web address] [facility] [address] [facility], [place], [address], 06/23/2023 09:16:18 12/05/19 24 12/05/2023 elect rocar diogr am No observ ation record ed. [email or web address] In-House Results For Internal Use Only, Do Not Delete/merge, [id number] 12/05/2023 16:25:03 12/05/19 24 elect rocar diogr am No observ ation record ed. Not Available 2023 16:25:04 12/06/19 24 11/29/2023 , echoc ardio gram No observ ation record ed. [email or web address] Not Available 10:41:26 12/11/19 24 12/05/2023 devic e check (PROC ) No observ ation record ed. [email or web address] Not Available 2023 12:43:00 02/04/20 24 02/02/2024 remot e devic e inter rogat ion (PROC ) No observ ation record ed. [email or web address] Not Available 2023 12:22:39 02/04/20 24 02/02/2024 remot e devic e inter rogat ion (PROC ) No observ ation record ed. [email or web address] Not Available 2023 12:23:29 05/05/19 25 05/03/2024 remot e devic e inter rogat ion (PROC ) No observ ation record ed. [email or web address] Not Available 2024 15:46:47 Result Notes None recorded. Problems Name Problem SNOMED Code Status Onset Date Resolution Date Notes Provider Name and Address Organization Details Recorded Time Atrial flutter 2358573 Active Jane Watt null, [facility] 2 14:43:55 Persisten t atrial fibrillat ion 800741921 Active Janeyovani Watt null, [place] [facility] 2 14:44:26 Rupture of tendon 041862651 Active Nontrauma tic L ankle Jane Watt null [facility] 2 14:45:26 History of cardiover vita 364442283835 08 Active [facility] null[facility] [place] [facility] 2 14:45:57 Cerebrova scular accident 977494457 Active [facility] Watt null, [place] [facility] 2 14:46:07 Dyspnea 368760201 Active Jane Watt null, [place] [facility] 2 14:46:19 Insomnia 117055429 Active Jane Watt null, [facility] 2 14:46:34 Nerve injury 81722759 Active Right Arm Jane Watt null, [facility] 2 14:47:21 Arthritis 2574886 Active Right Foot Jane Shukri null, [facility] 2 14:47:56 Cardiac arrhythmi a 234057492 Active 2022 Arden Cosme null, [place] [facility] 3 13:53:39 Palpitati ons 45052397 Active [address] [place] [address], [place], [address], [facility] 3 14:57:10 Paroxysma l atrial fibrillat ion 277183138 Active [address] [place] [address], [place], [address], [facility] 3 14:59:34 Ventricul ar premature beats 55102752 Active 2022 ARCHANA CARIAS [address] [place] [address], [place], [address], [facility] 3 14:59:56 Left atrial appendage absent 991441652 Active 2022 s/p clipping of GABRIEL at time of MV repair, 2021 ARCHANA Cooper [address] [place] [address], [place], [address], [facility] 4 09:17:42 Left bundle branch hemiblock 7027811 Active 2022 ARCHANA CARIAS [address] [place] [address], [place], [address], [facility] 3 15:03:55 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 ? XT MRI DEVICE SERIAL NUMBER [id number] G DEVICE TYPE Pacemaker DATE OF IMPLANT 28-Nov-19 22 pt transferr ed into ' remote clinic from [place] 12/13/2023 Phoebe Mccracken RN [address] [place] [address], [place], [address], [place] - [facility] 4 12:20:39 Nonsustai marcelo ventricul ar tachycard ia 815531433 Active 2023 ARCHANA Cooper [address] [place] [address], [place], [address], [place] - [facility] 4 12:44:39 Problem Notes None recorded. Procedures Surgical History Date Name Laterality Status Provider Name and Address Organization Details Recorded Time 12/05/19 24 In-person Programming of Pacemaker: Dual Chamber CPT 05441,26 completed ARCHANA Cooper [address] [place] [address], [place], [address], [place] - [facility] 12/05/2023 16:20:31 06/06/19 24 In-person Programming of Pacemaker: Dual Chamber CPT 21484,26 completed ARCHANA Cooper [address] [place] [address], [place], [address], [place] - [facility] 06/07/2023 12:27:03 11/27/19 23 In-person Programming of Pacemaker: Dual Chamber CPT 19340,26 completed ARCHANA Cooper [address] [place] [address], [place], [address], [place] - [facility] 11/26/2022 16:11:31 05/27/19 23 In-person Programming of Pacemaker: Dual Chamber CPT 34179,26 completed ARCHANA CARIAS [address] [place] [address], [place], [address], [place] - [facility] 05/27/2022 15:17:02 04/25/19 23 Hernia repair: Incisional completed Jane ALLEN [facility] 12/05/2023 15:26:37 02/05/20 22 In-person Programming of Pacemaker: Dual Chamber CPT 07264,26 completed Jordon Orozco MD [address], [place], [address], [place] - [facility] 02/04/2022 17:05:28 11/28/19 22 cardiac pacemaker procedure completed Han Mills RN [address],[facility], [place], [address], [place] - [facility] 02/04/2022 16:16:27 11/13/19 22 Maze procedure completed Han Mills RN [address],[facility], [place], [address], [place] - [facility] 11/24/2021 13:27:31 11/13/19 22 atrial appendage excision completed Han Mills RN [address],[facility], [place], [address], [place] - [facility] 11/24/2021 13:27:59 04/25/19 22 Other [facility] 12/05/2023 15:26:37 04/25/19 22 Pacemaker completed Janeyovani ALLEN [facility] 12/05/2023 15:26:37 03/16/20 21 catheter ablation of arrhythmogenic focus completed Jane ALLEN [facility] 09/23/2021 14:50:10 05/07/19 21 catheter ablation of arrhythmogenic focus completed Jane ALLEN [facility] 09/23/2021 14:49:31 05/07/19 21 catheter ablation of arrhythmogenic focus completed Jane ALLEN [facility] 09/23/2021 14:49:45 04/25/19 21 Hernia repair: Inguinal completed Jnaeyovani ALLEN [facility] 12/05/2023 15:26:37 04/25/19 19 Cataract removal / Lens implant completed Jane ALLEN [facility] 12/05/2023 15:26:37 04/25/19 13 operative procedure on cartilage completed Jane ALLEN [facility] 09/23/2021 14:51:05 04/25/19 13 Shoulder joint surgery completed Jane ALLEN [facility] 09/23/2021 14:51:34 04/25/19 13 Shoulder repair completed Jane ALLEN [facility] 12/05/2023 15:26:37 04/25/19 02 LASIK completed Janeyovani ALLEN [facility] 12/05/2023 15:26:37 Tonsillectomy completed Janeyovani ALLEN [facility] 09/23/2021 14:52:05 repair of mitral valve completed Han Mills RN [address] [facility], [place], [address], ALEJANDRO [facility] 11/24/2021 13:31:59 Imaging Results Imaging Date Name Status LastModified by Organization Details LastModified Time 02/04/2022 electrocardiogram completed In-Hous e Results For Internal Use Only, Do Not Delete/merge, [id number] 02/04/2022 17:06:10 02/04/2022 US, echocardiogram, transthoracic, complete completed [email or web address] [facility] [address] [place], [address], 02/05/2022 14:18:08 03/21/2022 pacemaker interrogation (PROC) completed [email or web address] Information not available 03/23/2022 12:18:08 03/29/2022 holter monitor completed [email or web address] Informatio n not available 04/09/2022 13:52:07 05/27/2022 electrocardiogram completed In-Hous e Results For Internal Use Only, Do Not Delete/merge, [id number] 05/27/2022 15:25:52 05/27/2022 electrocardiogram completed Infor mation not available 05/27/2022 14:03:56 05/27/2022 electrocardiogram completed [email or web address] In-Hous e Results For Internal Use Only, Do Not Delete/merge, [id number] 05/28/2022 11:23:34 05/27/2022 pacemaker interrogation (PROC) completed [email or web address] Information not available 05/28/2022 11:27:20 11/26/2022 electrocardiogram completed [email or web address] In-Hous e Results For Internal Use Only, Do Not Delete/merge, [id number] 11/26/2022 16:14:20 11/26/2022 electrocardiogram completed Infor mation not available 11/29/2022 06:56:31 11/26/2022 device check (PROC) completed [email or web address] Infor mation not available 12/05/2022 23:01:26 12/16/2022 trans-thoracic echocardiogram (TTE) (PROC) completed [address] [facility] [address] [place] [address], [address], 06/02/2023 13:58:09 06/06/2023 electrocardiogram completed YOUSUF In-Hous e Results For Internal Use Only, Do Not Delete/merge, [id number] 06/06/2023 16:39:33 06/06/2023 electrocardiogram completed [email or web address] Informa tion not available 06/06/2023 16:43:35 06/08/2023 device check (PROC) completed [email or web address] Infor mation not available 06/19/2023 11:37:54 06/22/2023 PET, heart completed [email or web address] [facility] [address] [place] [address] Dr hou Ar, [place], [address], 06/23/2023 09:16:18 12/05/2023 electrocardiogram completed [email or web address] In-Hous e Results For Internal Use Only, Do Not Delete/merge, [id number] 12/05/2023 16:25:03 12/05/2023 electrocardiogram completed Informa tion not available 12/05/2023 16:25:04 11/29/2023 US, echocardiogram completed [email or web address] Inf ormation not available 12/06/2023 10:41:26 12/05/2023 device check (PROC) completed [email or web address] Infor mation not available 12/11/2023 12:43:00 02/02/2024 remote device interrogation (PROC) completed [email or web address] Information not available 02/04/2024 12:22:39 02/02/2024 remote device interrogation (PROC) completed [email or web address] Information not available 02/04/2024 12:23:29 05/03/2024 remote device interrogation (PROC) completed [email or web address] Information not available 05/05/2024 15:46:47 Procedure Notes None recorded. Medical Equipment None Reported. Allergies Allergen ID Allergen Name Allergen Category Reaction Reaction Severity Criticality Documentation Date Start Date Code Code System Note Provider Name and Address Organization Details Recorded Time 430006 metoprolo l Not available dizziness palpitati ons severe Not available Not available 09/23/2021 6918 RxNorm Jane guajardo [facility] 2 14:56:20 287722 Substance with sulfonami de structure and antibacte rial mechanism of action (substanc e) medicatio n Not available Not available Not available 09/23/2021 16095 8003 SNOMED Unsur e Child moreland react ion Jane guajardo [facility] 2 14:57:02 087731 gabapenti n medicatio n other moderate Not available 02/04/2022 86325 RxNorm Beni ce & gate Han Mills RN [address], [place], [address], [facility] 2 16:11:28 875414 Product containin g 3-hydroxy -3-methyl glutaryl- coenzyme A reductase inhibitor (product) medicatio n muscle cramps severe Not available 02/04/2022 68812 009 SNOMED Han Mills RN [address], [place], [address], [facility] 2 16:12:03 433523 amoxicill in medicatio n rash Not available Not available 11/26/2022 723 RxNorm David guajardo [facility] 3 15:16:47 Medications Name Sig [...] TABLETS BY MOUTH EVERY DAY DIRECTED BY [facility] 11/26 completed Not Available Not Available [...] Not Available Vitals Date Recorded Body height Provider Name an d Address Organization Details Last Updated DateTime 05/27/2022 187.96 cm Arden Wills [facility] 05/27/2022 13:44:15 Date Recorded Body mass index (BMI) Body weight Provider Name and Address Organization Details Last Updated DateTime 05/27/2022 23.6 kg/m2 39208 g Arden bee [facility] 05/27/2022 13:44:26 Date Recorded Respiratory rate Provider Name a nd Address Organization Details Last Updated DateTime 05/27/2022 16 /min Arden Wills [facility] 05/27/2022 13:44:32 Date Recorded Oxygen saturation Oxygen saturation in Arterial blood by Pulse oximetry Provider Name and Address Organization Details Last Updated DateTime 05/27/2022 98 % 98 % Arden Wills [facility] 05/27/2022 13:44:40 Date Recorded Heart rate Provider Name an d Address Organization Details Last Updated DateTime 05/27/2022 67 /min Arden Wills [facility] 05/27/2022 13:44:42 Date Recorded Body height Provider Name an d Address Organization Details Last Updated DateTime 11/26/2022 187.96 cm David Wills [facility], [facility] 11/26/2022 15:05:34 Date Recorded Body mass index (BMI) Provider Name and Address Organization Details Last Updated DateTime 11/26/2022 23.1 kg/m2 [facility] 11/26/2022 15:21:54 Date Recorded Body weight Provider Name an d Address Organization Details Last Updated DateTime 11/26/2022 43394.63 g [facility] 11/26/2022 15:21:55 Date Recorded Body height Provider Name an d Address Organization Details Last Updated DateTime 06/06/2023 187.96 cm Lona ALLEN [facility] 06/06/2023 15:04:50 Date Recorded Body mass index (BMI) Body weight Provider Name and Address Organization Details Last Updated DateTime 06/06/2023 23.1 kg/m2 74928.63 g [facility] 06/06/2023 15:19:08 Date Recorded Respiratory rate Provider Name a nd Address Organization Details Last Updated DateTime 06/06/2023 16 /min Lona ALLEN [facility] 06/06/2023 15:19:15 Date Recorded Heart rate Provider Name an d Address Organization Details Last Updated DateTime 06/06/2023 62 /min Lona ALLEN [facility] 06/06/2023 15:20:28 Date Recorded Oxygen saturation Oxygen saturation in Arterial blood by Pulse oximetry Provider Name and Address Organization Details Last Updated DateTime 06/06/2023 99 % 99 % Lona ALLEN [facility] 06/06/2023 15:20:34 Date Recorded Body height Provider Name an d Address Organization Details Last Updated DateTime 12/05/2023 187.96 cm Jane ALLEN [facility] 12/05/2023 15:24:51 Date Recorded Body mass index (BMI) Body weight Provider Name and Address Organization Details Last Updated DateTime 12/05/2023 24.4 kg/m2 49725.55 g [facility] 12/05/2023 15:36:17 Date Recorded Respiratory rate Provider Name a nd Address Organization Details Last Updated DateTime 12/05/2023 16 /min Jane [place] [facility] 12/05/2023 15:36:40 Date Recorded Body temperature Provider Name a nd Address Organization Details Last Updated DateTime 12/05/2023 99.1 [degF] Jane Monidge [place] [facility] 12/05/2023 15:38:01 Date Recorded Oxygen saturation Oxygen saturation in Arterial blood by Pulse oximetry Provider Name and Address Organization Details Last Updated DateTime 12/05/2023 99 % 99 % [facility] 12/05/2023 15:38:07 Date Recorded Heart rate Provider Name an d Address Organization Details Last Updated DateTime 12/05/2023 55 /min Jane Rodartedridge [facility] 12/05/2023 15:38:27 Date Recorded Body height Provider Name an d Address Organization Details Last Updated DateTime 02/04/2022 187.96 cm Han Mills RN [address] [facility], [place], [address], [facility] 02/04/2022 16:09:25 Date Recorded Body mass index (BMI) Body weight Provider Name and Address Organization Details Last Updated DateTime 02/04/2022 23.1 kg/m2 71734.63 g Han Mills RN [address] [facility], [place], [address], [facility] 02/04/2022 16:09:41 Date Recorded Respiratory rate Provider Name a nd Address Organization Details Last Updated DateTime 02/04/2022 16 /min Han Mills RN [address] [facility], [place], [address], [facility] 02/04/2022 16:10:00 Date Recorded Systolic blood pressure Diastolic blood pressure Provider Name and Address Organization Details Last Updated DateTime 05/27/2022 108 mm[Hg] 70 mm[Hg] Arden Cosme [facility] 05/27/2022 13:53:30 Date Recorded Systolic blood pressure Diastolic blood pressure Provider Name and Address Organization Details Last Updated DateTime 11/26/2022 112 mm[Hg] 64 mm[Hg] David Rivas [facility] 11/26/2022 15:22:35 Date Recorded Systolic blood pressure Diastolic blood pressure Provider Name and Address Organization Details Last Updated DateTime 06/06/2023 110 mm[Hg] 62 mm[Hg] Lona Arellano [facility] 06/06/2023 15:20:27 Date Recorded Systolic blood pressure Diastolic blood pressure Provider Name and Address Organization Details Last Updated DateTime 12/05/2023 126 mm[Hg] 70 mm[Hg] Jane Rodartedridge [facility] 12/05/2023 15:37:28 Social History Question Answer Notes LastModified by Organizat ion Details LastModified Time Tobacco Smoking Status Former Smoker quit greater than 40 years Annette Cuellar RN [address] [facility],[address], [place], [address] 09/28/2021 13:21:29 Do You Have An Advance Directive? Yes [email or web address] Information not available 06/06/2023 What Is Your Level Of Alcohol Consumption? Occasional Information not available 11/26/2022 How Many Times Per Week Do You Consume Alcohol? Less Than 1 Time Per Week Information not available 06/06/2023 Is Blood Transfusion Acceptable In An Emergency? Yes [email or web address] Information not available 06/06/2023 What Is Your Level Of Caffeine Consumption? Moderate 1-2 Cups Of Coffee Information not available 06/06/2023 What Type Of Diet Are You Following? [email or web address] Information not available 09/28/2021 When Did You Quit Smoking? 16+yearssincel astcigarette Information not available 06/06/2023 Do You Have A Rental Car Ferry Driver (loved One Involved In Your Care)? No Information not available 11/26/2022 Do You Feel Safe At Home? Yes Information not available 09/28/2021 Over The Last 3 Months, Have You Struggled With Housing? No Information not available 12/05/2023 Over The Last 3 Months, Have You Struggled With Access To Food? No [email or web address] Information not available 12/05/2023 Over The Last 3 Months, Have You Struggled With Utilities? No [email or web address] Information not available 12/05/2023 Over The Last 3 Months, Have You Struggled With Transportation? No [email or web address] Information not available 12/05/2023 Over The Last 3 Months, Have You Ada Unsafe In Your Relationship? No [email or web address] Information not available 12/05/2023 What Was The Date Of Your Most Recent Tobacco Screening? 12/05/2023 Information not available 12/05/2023 How Many Children Do You Have? 2 Information not available 09/28/2021 Do You Use Any Illicit Or Recreational Drugs? No [email or web address] Information not available 06/06/2023 Has Tobacco Cessation Counseling Been Provided? No [email or web address] Information not available 12/05/2023 How Many Years Have You Smoked Tobacco? 15 Information not available 06/06/2023 Do You Or Have You Ever Used Any Other Forms Of Tobacco Or Nicotine? No Information not available 06/06/2023 Sex: Male Functional Status Question Answer Note LastModified by Organizat ion Details LastModified Time What is your exercise level? Occasional [email or web address] Information not available 06/06/2023 Mental Status None recorded. Family History Relationship Description Onset Age of this Age Resolved Age Notes LastModified by Organization Details LastModified Time Mother Dementia 97 [email or web address] Not availa ble 09/23/2021 14:55:32 Father Family history of stroke 87 [email or web address] Not available 04/2021 14:55:47 Notes:11/26/22 JG Medical History Condition Response Gout N High Blood Pressure N Atrial Fibrillation Y Thyroid problems N Asbestos exposure N Blood [...] SNOMED-CT Code Diagnosis ICD10 Code Diagnosis Note [id number] Devorah Pan APRN Cardiac EP [place] 2 [facility],[address] [place] [phone] 09/28/2021 12:47:43 09/28/2021 14:08:29 Cardiac arrhythmia 981662736 I49.9 Paroxysmal atrial fibrillation 513845321 I48.0 Cardiomyopathy 69085012 I42.9 [id number] Jordon Orozco MD Cardiac EP [place] 2 [facility],[address] [place] [address] 02/04/2022 15:47:13 02/04/2022 17:17:51 Palpitations 50219732 R00.2 [id number] ARCHANA CARIAS Cardiac EP [place] 2 [facility],[address] [place] [address] 05/27/2022 13:34:44 05/27/2022 14:36:21 Cardiac arrhythmia 130563300 I49.9 Palpitations 73314526 R0 0.2 History of radiofrequency ablation operation for arrhythmia 799396156 Z98.890 Paroxysmal atrial fibrillation 007748853 I48.0 Ventricula r premature beats 77830754 I49.3 History of maze procedure for atrial fibrillation 160658601 Z98.890 History of repair of mitral valve 483557292 Z98.890 Left atria l appendage absent 372717373 Q20.8 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 49006541 I44.4 Cardiomyopathy 55421678 I42.9 [id number] [facility] [address] [place] [address] 11/26/2022 14:57:35 11/26/2022 16:03:00 Cardiac arrhythmia 254774243 I49.9 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 00668670 I44.4 Persistent atrial fibrillation 200654757 I48.19 Cardiac pa cemaker in situ 044623080 Z95.0 [id number] Angelita Luke PA Cardiac EP [place] 9 [facility] [place],[address] [address] 06/06/2023 14:43:25 06/06/2023 16:06:44 Cardiac arrhythmia 563617039 I49.9 Atrial flutter 7364176 I 48.92 Cardiac pa cemaker in situ 631725625 Z95.0 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 98807089 I44.4 Nonsustain ed monomorphic ventricular tachycardia 1025875017 I47.29 [id number] ARCHANA Cooper Cardiac EP [place] 9 [facility] [place], [address] [place] [address] 12/05/2023 15:13:26 12/05/2023 16:18:04 Cardiac arrhythmia 629164390 I49.9 Atrial flutter 3019760 I 48.92 Cardiac pa cemaker in situ 884381825 Z95.0 Nonsustain ed ventricular tachycardia 933676465 I47.20 Health Concerns Section Related Observation LastModified by Organization Detai ls LastModified Time None Recorded Concern Status LastModified by Organization Details LastModified Time None Recorded Advance Directives Directive Y: Payers Encounter Date Sequence Insurance Name Policy Number Policy Shelby Covered Member ID Shelby Member ID Guarantor Name 02/04/2022 1 MEDICARE B-CT: NGS Eliazar Quispe [id number] Eliazar Quispe 02/04/2022 2 [place] [id number] Eliazar Dowlingjanelle [id number] Eliazar Dowlingjanelle 05/27/2022 1 MEDICARE B-CT: NGS Eliazar Quispe [id number] 24 Eliazar Quispe 05/27/2022 2 [place] [id number] Eliazar Berriosvignesh [id number] Eliazar Quispe 11/26/2022 1 MEDICARE B-CT: NGS Eliazar Quispe [id number] Eliazar Quispe 11/26/2022 2 [place] [id number] Eliazar Quispe [id number] Eliazar Quispe 06/06/2023 1 MEDICARE B-CT: NGS Eliazar Quispe [id number] 24 Eliazar Quispe 06/06/2023 2 [place] [id number] Eliazar Quispe [id number] 248 Eliazar Quispe 12/05/2023 1 MEDICARE B-CT: NGS Eliazar Quispe [id number] 24 Eliazar Quispe 12/05/2023 2 [place] [id number] Eliazar Quispe [id number] Eliazar Quispe Notes Date Note Type [...] excellent health. 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 He was referred to Dr. White at [facility]. As far as I can tell, [...] that time.More recently, he was admitted to [facility] on 01/18/20 with increasing shortness of [...] that admission, he had an echocardiogram at [facility] done on 01/16/20. 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 He has a son Han who lives in [place].I would note that one of the possibilities [...] distribution.His preadmission lab studies were drawn at [facility]. His vitamin B12 level was [...] also showed 2500 PACs. We reviewed his DaisyBill ari which showed episodes of possible A. [...] any cardiac complaints. He was using his [employer] ari routinely which was showing sinus rhythm. A Holter monitor done prior to our visit showed a significant decline in his PVC burden and PAC burden. We did not make any changes to his medication. I asked that he follow-up with his engineering research manager regarding the mitral regurgitation noted on his echocardiogram.He did have a hernia repair shortly after that visit.However in December 2020 he was found to have atrial flutter on his [employer] ari which was also confirmed on an EKG.He was brought to the EP lab on March 16, 2021 by and underwent a successful ablation of mitral valve flutter with both epicardial and endocardial ablation.He was last seen in the office at [facility] in April 2021. He had been doing well since his procedure and denied any recurrence of arrhythmias or palpitations. He was using his Twinkl[employer] monitor and did not note any atrial fibrillation or rapid heart rates. He reported occasional chest discomfort which she described as tightness and it was not exertional. He had a stress test in May 2020 that did not show any ischemia. We asked him to follow-up with his engineering research manager regarding need for further work-up. His EKG was unchanged compared to prior tracings and his cardiac examination was within normal limits with the exception of occasional ectopic beats. We deferred a repeat echocardiogram to his engineering research manager given the findings of mitral regurgitation on his last echocardiogram. He remained anticoagulated with Eliquis for his [id number] score of 4. We discussed the importance [...] dilated measuring 4.4 cm??. There is moderate MRSabrina returns to the office today in routine [...] like getting out of bed. Despite his engineering research manager increasing his carvedilol dose he has not [...] the procedure. We will defer to his engineering research manager for longitudinal monitoring of his mitral regurgitation. [...] amiodarone. I spoke to Dr. Vela his engineering research manager 10/01/2021. It was felt that he might [...] he is going to consult with a ditching machine operator. Overall again however he feels significantly improved and is getting back to himself. I would note that I did have an echocardiogram today at [facility] we will be getting the results. He [...] this should be continued. Jordon Orozco MD [address] [place] [address],[address], [place], [address], [facility], [facility] 02/04/2022 17:11:18 05/27/2022 text/html To review, Mr. [...] excellent health. 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 He was referred to Dr. White at [facility]. As far as I can tell, [...] that time.More recently, he was admitted to [facility] on 01/18/20 with increasing shortness of [...] that admission, he had an echocardiogram at [facility] done on 01/16/20. 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 He has a son Han who lives in [place].I would note that one of the possibilities [...] distribution.His preadmission lab studies were drawn at [facility]. His vitamin B12 level was [...] also showed 2500 PACs. We reviewed his DaisyBill ari which showed episodes of possible A. [...] any cardiac complaints. He was using his [employer] ari routinely which was showing sinus rhythm. A Holter monitor done prior to our visit showed a significant decline in his PVC burden and PAC burden. We did not make any changes to his medication. I asked that he follow-up with his engineering research manager regarding the mitral regurgitation noted on his echocardiogram.He did have a hernia repair shortly after that visit.However in December 2020 he was found to have atrial flutter on his [employer] ari which was also confirmed on an EKG.He was brought to the EP lab on March 16, 2021 by and underwent a successful ablation of mitral valve flutter with both epicardial and endocardial ablation.He was last seen in the office at [facility] in April 2021. He had been doing well since his procedure and denied any recurrence of arrhythmias or palpitations. He was using his [employer] monitor and did not note any atrial fibrillation or rapid heart rates. He reported occasional chest discomfort which she described as tightness and it was not exertional. He had a stress test in May 2020 that did not show any ischemia. We asked him to follow-up with his engineering research manager regarding need for further work-up. His EKG was unchanged compared to prior tracings and his cardiac examination was within normal limits with the exception of occasional ectopic beats. We deferred a repeat echocardiogram to his engineering research manager given the findings of mitral regurgitation on his last echocardiogram. He remained anticoagulated with Eliquis for his [id number] score of 4. We discussed the importance [...] like getting out of bed. Despite his engineering research manager increasing his carvedilol dose he has not [...] the procedure. We will defer to his engineering research manager for longitudinal monitoring of his mitral regurgitation. [...] amiodarone. I spoke to Dr. Vela his engineering research manager 10/01/2021. It was felt that he might [...] he is going to consult with a ditching machine operator. Overall again however he feels significantly improved and is getting back to himself. I would note that I did have an echocardiogram today at [facility] we will be getting the results. He [...] very active. He will be seeing his engineering research manager next week. He asked that we verify [...] on Coumadin for anticoagulation. ARCHANA CARIAS [address] [facility], [place], [address], [facility], [facility] 05/27/2022 15:28:36 11/26/2022 text/html To review, Mr. [...] excellent health. 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 He was referred to Dr. White at [facility]. As far as I can tell, [...] that time.More recently, he was admitted to [facility] on 01/18/20 with increasing shortness of [...] that admission, he had an echocardiogram at [facility] done on 01/16/20. 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 He has a son Han who lives in [place].I would note that one of the possibilities [...] distribution.His preadmission lab studies were drawn at [facility]. His vitamin B12 level was [...] also showed 2500 PACs. We reviewed his [employer] ari which showed episodes of possible A. [...] any cardiac complaints. He was using his [employer] ari routinely which was showing sinus rhythm. A Holter monitor done prior to our visit showed a significant decline in his PVC burden and PAC burden. We did not make any changes to his medication. I asked that he follow-up with his engineering research manager regarding the mitral regurgitation noted on his echocardiogram.He did have a hernia repair shortly after that visit.However in December 2020 he was found to have atrial flutter on his [employer] ari which was also confirmed on an EKG.He was brought to the EP lab on March 16, [address] Deras and underwent a successful ablation of mitral valve flutter with both epicardial and endocardial ablation. He was seen at [facility] in April 2021. He denied any recurrence of arrhythmias or palpitations. He was using his cardia monitor daily which did not show any atrial fibrillation or rapid heartbeats. He reported occasional chest discomfort and we asked him to follow-up with his engineering research manager. We also felt he should have another [...] remote monitoring is being followed by his engineering research manager. ARCHANA Cooper [address] [place] [address],[address], [place], [address], [facility], [facility] 11/26/2022 16:26:06 06/06/2023 text/html To review, Mr. [...] excellent health. 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 He was referred to Dr. White at [facility]. As far as I can tell, [...] that time.More recently, he was admitted to [facility] on 01/18/20 with increasing shortness of [...] that admission, he had an echocardiogram at [facility] done on 01/16/20. 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 He has a son Han who lives in [place].I would note that one of the possibilities [...] distribution.His preadmission lab studies were drawn at [facility]. His vitamin B12 level was [...] also showed 2500 PACs. We reviewed his [employer] ari which showed episodes of possible A. [...] any cardiac complaints. He was using his [employer] ari routinely which was showing sinus rhythm. A Holter monitor done prior to our visit showed a significant decline in his PVC burden and PAC burden. We did not make any changes to his medication. I asked that he follow-up with his engineering research manager regarding the mitral regurgitation noted on his echocardiogram.He did have a hernia repair shortly after that visit.However in December 2020 he was found to have atrial flutter on his [employer] ari which was also confirmed on an EKG.He was brought to the EP lab on March 16, [address] Deras and underwent a successful ablation of mitral valve flutter with both epicardial and endocardial ablation. He was seen at [facility] in April 2021. He denied any recurrence of arrhythmias or palpitations. He was using his cardia monitor daily which did not show any atrial fibrillation or rapid heartbeats. He reported occasional chest discomfort and we asked him to follow-up with his engineering research manager. We also felt he should have another [...] a [employer] dual-chamber unit which is an [place] XT DR device. The device is programmed [...] and he had a follow-up with his engineering research manager. PVC counters showed 75/h. He had an [...] to his discomfort. He is seeing his engineering research manager tomorrow. He has a home monitor which is being followed by his engineering research manager. ARCHANA Cooper [address] [place] [address],[address], [place], [address], [facility], [facility] 06/08/2023 10:07:34 12/05/2023 text/html To review, Mr. [...] excellent health. 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 He was referred to Dr. hWite at [facility]. As far as I can tell, [...] that time.More recently, he was admitted to [facility] on 01/18/20 with increasing shortness of [...] that admission, he had an echocardiogram at [facility] done on 01/16/20. 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 He has a son Han who lives in [place].I would note that one of the possibilities [...] distribution.His preadmission lab studies were drawn at [facility]. His vitamin B12 level was [...] also showed 2500 PACs. We reviewed his [employer] ari which showed episodes of possible A. [...] any cardiac complaints. He was using his [employer] ari routinely which was showing sinus rhythm. A Holter monitor done prior to our visit showed a significant decline in his PVC burden and PAC burden. We did not make any changes to his medication. I asked that he follow-up with his engineering research manager regarding the mitral regurgitation noted on his echocardiogram.He did have a hernia repair shortly after that visit.However in December 2020 he was found to have atrial flutter on his [employer] ari which was also confirmed on an EKG.He was brought to the EP lab on March 16, [address] Deras and underwent a successful ablation of mitral valve flutter with both epicardial and endocardial ablation. He was seen at [facility] in April 2021. He denied any recurrence of arrhythmias or palpitations. He was using his cardia monitor daily which did not show any atrial fibrillation or rapid heartbeats. He reported occasional chest discomfort and we asked him to follow-up with his engineering research manager. We also felt he should have another [...] a [employer] dual-chamber unit which is an [place] XT DR device. The device is programmed [...] and he had a follow-up with his engineering research manager. PVC counters showed 75/h. He had an [...] breath, palpitations, near-syncope or syncope. ARCHANA Cooper [address] [place] [address],[address], [place], [address], [facility], [facility] 12/05/2023 16:24:46
--- NOTE | 2024-05-14 12:45 | HO.ANESPROP2 ---
HPI - Anesthesia Eval Consult details Narrative: 74 yo male patient for Cystoscopy, Right ureteroscopy, retrograde, Laser, stent Right ureter PMFSH Active Problems Active Problems: All Active Problems Weak urinary stream (Acute) Hydronephrosis (Acute) CKD (chronic kidney disease) stage 4, GFR 15-29 ml/min (Acute) Pharyngitis (Acute) Ascending aorta dilatation (Acute) Allergic reaction (Acute) Hypercholesterolemia (Acute) CKD (chronic kidney disease) (Acute) Ulnar neuropathy (Acute) Pacemaker (Acute) KAREN on CPAP (Acute) Numbness of left hand (Acute) Atypical atrial flutter (Acute) Anticoagulant long-term use (Acute) Plantar wart of left foot (Acute) Colon cancer screening (Acute) Peripheral vascular disease (Acute) Bilateral inguinal hernia (Acute) Anemia (Acute) Insomnia (Acute) History of DVT (deep vein thrombosis) (Acute) Atherosclerotic cardiovascular disease (Acute) Normally functioning cardiac pacemaker present (Acute) Status post mitral valve repair (Acute) Paroxysmal atrial fibrillation (Acute) Congestive heart failure (Acute) Insomnia (Acute) Allergic rhinitis (Acute) PVC (premature ventricular contraction) (Acute) Cardiomyopathy (Acute) Nonrheumatic mitral valve regurgitation (Acute) Past Medical History Medical History History of cardiac pacemaker Vertigo 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 Atherosclerotic cardiovascular disease Normally functioning cardiac pacemaker present Acute kidney injury Generalized anxiety disorder Osteoarthritis of knees, bilateral Obstructive sleep apnea (adult) (pediatric) DVT (deep venous thrombosis) Nasal polyp Asthma Nonrheumatic mitral valve regurgitation Cardiomyopathy Cerebral infarction due to embolism of unspecified cerebral artery PVC (premature ventricular contraction) Anxiety Allergic rhinitis Insomnia Congestive heart failure Gastroesophageal reflux disease Impaired glucose tolerance Congestive heart failure Lupus anticoagulant positive Paroxysmal atrial fibrillation Hypercholesterolemia Family History Family History Father HTN (hypertension) CVA (cerebral vascular accident) Mother Skin cancer Maternal Uncle Colon cancer Son No problems noted. Daughter No problems noted. Family/Other Breast cancer Paternal Uncle Colon cancer Family history of problems with anesthesia: No Surgical History Surgical History H/O hernia repair Ventral hernia Status post mitral valve repair History of cardiac radiofrequency ablation (~03/16/21) Status post arthroscopy of left knee History of cardioversion (~01/17/20) S/P medial meniscectomy of left knee History of arthroscopy of left knee Hx of repair of right rotator cuff History of tonsillectomy History of Problems with Anesthesia: No Social History Social History Housing: House Are you a primary career resource specialist to a significant other at home: No Do you presently have visiting nurse or other home services: No Alcohol intake: never Patient Tobacco Use Status: Former Tobacco user Tobacco use type: Cigarette Years Smoked: 12 +/- e-Cigarette/Vaping Use: Never Used Second Hand Smoke Exposure: No Have you been hit, kicked, punched, or otherwise hurt by someone within the past year? If so, by whom?: No Are you DNR?: No Advance Directives: No Advance Directives Information Provided: Yes service: No Current occupational status: retired Cognitive needs: No Hearing needs: No Vision needs: No Meds Allergies Allergy/AdvReac Type Severity Reaction Status Date / Time gabapentin Allergy Severe Dizziness Verified 04/13/24 11:06 atorvastatin Allergy Intermediate Muscle Verified 04/13/24 11:06 cramps rosuvastatin Allergy Intermediate Muscle Verified 04/13/24 11:06 cramps Sulfa (Sulfonamide Allergy Mild RASH Verified 04/13/24 11:06 Antibiotics) [SULFA(SULFONAMIDE ANTIBIOTICS)] metoprolol AdvReac Severe Chest Verified 04/13/24 11:06 Pain, sob, dizziness amoxicillin AdvReac Mild Rash Verified 04/13/24 11:06 Home Medications ?Medication ?Instructions ?Recorded ?Confirmed ?Last Taken ?Type ascorbic acid (vitamin C) 1,000 mg 1 g PO BID 01/25/20 05/10/24 Unknown History tablet cholecalciferol (vitamin D3) 25 25 mcg PO DAILY 01/31/20 05/10/24 Unknown History mcg (1,000 unit) capsule ezetimibe 10 mg tablet (Zetia) 10 mg PO DAILY 04/11/24 05/10/24 Unknown History Exam Height,Weight and Vital Signs: Height 6 ft 2 in Weight 87.453 kg Airway Mallampati Class: II TM Dist: >3cm Neck ROM: Full Loose/Missing/Broken Teeth: Yes (Molars extracted. Denies broken or loose teeth) Heart: RRR+ ? murmur Lungs: CTAB Assessment and Plan Assessment Anesthesia Assessment: Anesthesia Plan Discussed and Chart Reviewed Final Anesthetic Review Family History of Problems with Anesthesia: No History of Problems with Anesthesia: No NPO: Yes ASA Class: III Final Preanesthetic Review: No Changes in Pt Med Stat, Meds/Allgs Chart Reviewed, Consent Obtained/Reviewed and Anes Risks/Benef Reviewed Patient Risk: Intermediate Procedure Risk: Low Assessment/Block/Sedation in SS: Assess/Block/Sedation-SS Anesthetic Plan Anesthetic Plan: GA Disposition: Standard PACU
--- NOTE | 2024-05-14 13:14 | MHC.SHP ---
Pre-Procedural Eval Section A - 24 Hr Update-Section A only Date of Service: 05/14/24 The patient is an INPATIENT: No Changes since office visit: No Cold of Flu in the past 2 weeks, No New Medical Problems, No Changes in Medication and No Patient answered all questions The patient has been examined within 24 hours of the surgical procedure. The History & Physical has been completed within 30 days and I have reviewed it.: Yes Section B - Complete if H&P > 30 days Chief Complaint: Unspecified hydronephrosis Details of Present Illness: Right-sided hydronephrosis Plan cystoscopy, right retrograde, right diagnostic ureteroscopy with stent placement Relevant Social History: None Present Medications: see Short Stay Collaborative assessment Medical History: Significant History History of Previous Operations: No relevant previous surgery Allergies: Allergies Allergy/AdvReac Type Severity Reaction Status Date / Time gabapentin Allergy Severe Dizziness Verified 04/13/24 11:06 atorvastatin Allergy Intermediate Muscle Verified 04/13/24 11:06 cramps rosuvastatin Allergy Intermediate Muscle Verified 04/13/24 11:06 cramps Sulfa (Sulfonamide Allergy Mild RASH Verified 04/13/24 11:06 Antibiotics) [SULFA(SULFONAMIDE ANTIBIOTICS)] metoprolol AdvReac Severe Chest Verified 04/13/24 11:06 Pain, sob, dizziness amoxicillin AdvReac Mild Rash Verified 04/13/24 11:06 Review of Systems Sugical H&P ROS: Negative: Constitution, Cardiovascular, Respiratory, Neurological, Psychiatric, Hem-Onc, Allergic/Immunologic, Gastrointestinal, Genitourinary, Musculoskeletal, Integumentary, Endocrine and Eyes/Ears/Nose/Throat Exam Surgical H&P Exam: Normal: HEENT, Normal: Heart, Normal: Lungs, Normal: Extremities, Normal: Abdomen, Normal: Skin and Normal: Neurological Plan Diagnosis/Plan: Unchanged I have reviewed the history and physical and performed a pertinent physical examination on my patient. No changes have occurred unless specified. Time Spent With Patient Time: Total time managing care of this patient today ____ minutes.
--- NOTE | 2024-05-14 14:16 | W.PM.OPN ---
Operative Note Operative Note Date of Service: 05/14/24 Narrative: PreOperative Diagnosis: Right hydronephrosis Post Operative Diagnosis: Right proximal ureteric stricture with hydronephrosis Procedure: - cystoscopy, right retrograde - right dilatation of ureteric orifice under fluoroscopy - right ureteroscopy - dilatation of right proximal ureteric stricture - right stent placement Surgeon: Dr Antoine Kate Anesthesia: General Indications for procedure: Right hydronephrosis. In setting of chronic renal insufficiency. Renogram shows minimal emptying on right side. Patient was interested in the attempt at stenting to see whether this would help recover any renal function. Procedure: After informed consent was verified patient was brought to the operating placed in supine position. Anesthesia was administered per protocol. Patient was placed in modified dorsal lithotomy position and prepped and draped in a sterile fashion. Safety pause time-out and side of surgery confirmed. Antibiotics confirmed. A 22 [place] cystoscope was inserted per urethra. The urethra and bladder were normal in their entirety. Both ureteric orifices were in normal position. The right ureteric orifice was cannulated and a retrograde examination was performed. Narrowing in distal 3rd, ureteric stricture at proximal ureter with corkscrewing of ureter and marked hydronephrosis.. An attempt was made to place a sensor level up to the level of the renal pelvis. It was unable to advance beyond the area of stricture in the proximal ureter. This was switched out for an angled glide and that too was unable to be advanced. At that is time a decision was made to try to perform flexible ureteroscopy. The rigid cystoscope was removed and the inner cannula of ureteric access sheath was used under fluoroscopy to dilate the ureteric orifice. The ureteric access sheath was placed and the inner cannula removed. The digital flexible ureteral scope was placed over the wire up to the area of narrowing. It was unable to be advanced further. There was an opening through and proximally. The angled Glidewire was placed. Dilatation was performed using the ureteric dilating set. We dilated up to 10F for stent placement. The rigid cystoscope was backloaded over the wire and advanced into the bladder. A 6 [place] by variable length double-J stent was placed into the renal pelvis and bladder under a combination of fluoroscopy and direct visualization. Proximal positioning of the stent was confirmed using fluoroscopy. The bladder was emptied. The patient tolerated the procedure well and was extubated in the operating room, and transferred in stable condition to the recovery area. Pathology: - - Drains: Double-J stent as above
[2024-05-14] MEDS: Phenazopyridine HCL 100 MG TABLET PO (15:07)
== END 2024-05-14 15:48 | disposition home or self-care (01) ==
PROVIDERS: PCP Internal Medicine; Visit Provider Urology
PROC: (CPT 52344; principal; 2024-05-14 12:40)
DX: N13.1 Hydronephrosis with ureteral stricture, not elsewhere classified (principal); R39.12 Poor urinary stream; I50.9 Heart failure, unspecified; I25.10 Atherosclerotic heart disease of native coronary artery without angina pectoris; Z95.0 Presence of cardiac pacemaker; I42.9 Cardiomyopathy, unspecified; I48.0 Paroxysmal atrial fibrillation; E78.00 Pure hypercholesterolemia, unspecified; D68.62 Lupus anticoagulant syndrome; G47.33 Obstructive sleep apnea (adult) (pediatric); F41.9 Anxiety disorder, unspecified; R42 Dizziness and giddiness; Z79.899 Other long term (current) drug therapy; Z79.82 Long term (current) use of aspirin; Z88.1 Allergy status to other antibiotic agents; Z88.2 Allergy status to sulfonamides; Z88.8 Allergy status to other drugs, medicaments and biological substances; Z98.890 Other specified postprocedural states; Z87.891 Personal history of nicotine dependence
CPT/HCPCS: 52344; 52332; C1758; C1769; C1894; C2617; J0131; J1956; J2003; J2405; J2704; J3010; Q9967

== ENCOUNTER → 2024-05-14 11:00 | Outpatient (BNV) | payer MEDICARE, SELFPAY | PROVIDERS: PCP Internal Medicine; Visit Provider Urology | DX: N13.30 Unspecified hydronephrosis (principal) | CPT/HCPCS: 52332; 52341; 74420 ==

== ENCOUNTER 2024-06-06 08:14 | Outpatient (AMB) | payer MEDICARE, SELFPAY ==
[2024-06-06 08:21] VITALS: BP 120/70; PULSE 73; BMI 24.8
--- NOTE | 2024-06-06 08:21 | A.OFFVIS_ITS ---
Vital Signs 06/06/24 08:21 Height 6 ft 2 in Weight 193 lb 1.999 oz BMI 24.8 BP 120/70 Blood Pressure Location Lt brachial Position Sitting Pulse 73 Intake Visit Reasons: 6 mth f/up Barber Shop Manager Required: No Accompanied by: Self / Same As Patient Allergies gabapentin Allergy (Severe, Verified 04/13/24 11:06) Dizziness atorvastatin Allergy (Intermediate, Verified 04/13/24 11:06) Muscle cramps rosuvastatin Allergy (Intermediate, Verified 04/13/24 11:06) Muscle cramps Sulfa (Sulfonamide Antibiotics) [SULFA(SULFONAMIDE ANTIBIOTICS)] Allergy (Mild, Verified 04/13/24 11:06) RASH metoprolol Adverse Reaction (Severe, Verified 04/13/24 11:06) Chest Pain, sob, dizziness amoxicillin Adverse Reaction (Mild, Verified 04/13/24 11:06) Rash Medication List - Last Reconciled 06/06/24 by Jaylen Amin MD albuterol sulfate 90 mcg/actuation (ProAir HFA) 2 puffs inhalation Q4H PRN APAP Machine/Device As directed ascorbic acid (vitamin C) 1 g PO BID aspirin 81 mg PO DAILY cholecalciferol (vitamin D3) 25 mcg PO DAILY comp.stocking,thigh,long,large As directed 20-30 mm HG, black ezetimibe (Zetia) 10 mg PO DAILY HPI Comments Details: Eliazar returns for follow-up regarding various cardiac issues including mitral regurgitation, atrial fibrillation, atypical flutter, PVCs among others. In the past, he underwent atrial fibrillation, atypical flutter ablation as well as PVC ablation. In 2021, diagnosed with severe mitral regurgitation. Admitted to [facility] with acute heart failure that led to cardiac catheterization and then mitral valve surgery. Also underwent pacemaker implantation. In general, he is doing fine. He can walk several miles with no issues. No clear concerns like angina or shortness of breath or palpitations. He still goes to and [place]. There was 1one brief episode of atrial fibrillation lasting for a few hours but nothing recurrent. For this reason, he underwent a transesophageal echocardiogram to evaluate for any residual left atrial appendage. There did seem to be a small remnant. Recommendation was that if there was recurrent atrial fibrillation, to consider anticoagulation. Otherwise, patient states he feels fine. 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 Atherosclerotic cardiovascular disease Normally functioning cardiac pacemaker present Acute kidney injury Generalized anxiety disorder Osteoarthritis of knees, bilateral Obstructive sleep apnea (adult) (pediatric) DVT (deep venous thrombosis) Nasal polyp Asthma Nonrheumatic mitral valve regurgitation Cardiomyopathy Cerebral infarction due to embolism of unspecified cerebral artery PVC (premature ventricular contraction) Anxiety Allergic rhinitis Insomnia Congestive heart failure Gastroesophageal reflux disease Impaired glucose tolerance Congestive heart failure Lupus anticoagulant positive Paroxysmal atrial fibrillation Hypercholesterolemia Surgical History H/O hernia repair Ventral hernia Status post mitral valve repair History of cardiac radiofrequency ablation (~03/16/21) Status post arthroscopy of left knee History of cardioversion (~01/17/20) S/P medial meniscectomy of left knee History of arthroscopy of left knee Hx of repair of right rotator cuff History of tonsillectomy Family History Father HTN (hypertension) CVA (cerebral vascular accident) Mother Skin cancer Maternal Uncle Colon cancer Son No problems noted. Daughter No problems noted. Family/Other Breast cancer Paternal Uncle Colon cancer Social History Housing: House Are you a primary resident care spec to a significant other at home: No Do you presently have visiting nurse or other home services: No Alcohol intake: never Patient Tobacco Use Status: Former Tobacco user Tobacco use type: Cigarette Years Smoked: 12 +/- e-Cigarette/Vaping Use: Never Used Second Hand Smoke Exposure: No service: No Current occupational status: retired Cognitive needs: No Hearing needs: No Vision needs: No Review of Systems Const Denies chills, Denies fatigue, Denies fever(s), Denies weight gain and Denies weight loss ENT Denies dizziness Card Denies chest pain, Denies leg edema, Denies lightheadedness, Denies palpitations, Denies dyspnea on exertion, Denies orthopnea and Denies other Resp Denies cough and Denies dyspnea on exertion GI Denies hematochezia and Denies change in stool character Musc Denies abnormal gait, Denies muscle weakness, Denies numbness, Denies radiating pain into limb and Denies tingling Neuro Denies abnormal gait, Denies dizziness, Denies numbness and Denies tingling Endo Denies fatigue and Denies palpitations Physical Exam Vital Signs: Last Vital Signs Pulse 73 06/06/24 08:21 BP 120/70 06/06/24 08:21 BMI result Body Mass Index 24.8 Const General: comfortable and no acute distress Orientation/consciousness: patient oriented x3 HEENT Other: Unremarkable Head: Yes normal to inspection Neck Neck: Yes normal visual inspection Chest Chest palpation & inspection: normal inspection of the chest Resp Auscultation: clear to auscultation bilaterally Cardio Palpation: normal PMI Heart sounds: S1 normal heart sound present, S2 normal heart sound present, no gallops, no murmurs and no rubs GI Palpation (GI): Soft to palpation Back/Spine/Pelvis Other: unremarkable Skin General skin exam: no rashes or lesions noted Neuro General: patient oriented x3 Extrem General: Yes normal to inspection Psych Mental Status: mental status grossly normal Office Procedures EKG Details: EKG with likely atrial paced rhythm although pacing difficult to see. Occasional PVCs. Leftward axis. Right bundle-branch block. Ventricular rate 73/Min. [id number], Complete Assessment & Plan Assessment & Plan (1) Status post mitral valve repair: Code(s): Z98.890 - Other specified postprocedural states Category: Surgical Plan: Status post mitral valve annuloplasty. In the last, hypo-sc-lhhtmqsa regurgitation. Can be followed periodically. Infective endocarditis pro phylaxis per protocol. (2) Cardiomyopathy: Code(s): I42.9 - Cardiomyopathy, unspecified Category: Medical Qualifiers: Cardiomyopathy type: unspecified Qualified Code(s): I42.9 - Cardiomyopathy, unspecified Plan: He has had variable EFs at different times. Most recent in the normal range. Clinically, no congestive heart failure. Used to be on Coreg but not anymore because of low blood pressure. (3) Atherosclerotic cardiovascular disease: Code(s): I25.10 - Atherosclerotic heart disease of [place] coronary artery without angina pectoris Category: Medical Plan: Cardiac catheterization - 65% stenosis in the proximal part of 1st obtuse marginal. Otherwise unremarkable. He has a history of statin intolerance. He was on simvastatin which he was tolerating but uncertain safety with low GFR. Currently he is on a small dose of Zetia. Lipids are reasonable. (4) Paroxysmal atrial fibrillation: Code(s): I48.0 - Paroxysmal atrial fibrillation Category: Medical Plan: Prior history of atrial fibrillation as well as atypical flutter and has undergone ablation for the same. He is also status post Maze procedure. Left atrial appendage amputation. History of intolerance to several antiarrhythmics. Off anticoagulation per his EP. CESILIA from March showed a remnant of left atrial appendage, status post excision. However, no thrombus noted. Overall recommendation is that if he indeed gets recurring atrial fibrillation, then to consider anticoagulation. At this time, patient states he would like to hold off anything and just have this pacemaker monitored for atrial fibrillation. (5) PVC (premature ventricular contraction): Code(s): I49.3 - Ventricular premature depolarization Category: Medical Plan: Status post ablation. In the last Holter from 03/2022, PVC burden was only 0.6%. (6) Normally functioning cardiac pacemaker present: Code(s): Z95.0 - Presence of cardiac pacemaker Category: Medical Plan: His pacemaker is followed up with EP in [place]. (7) CKD (chronic kidney disease): Code(s): N18.9 - Chronic kidney disease, unspecified Category: Medical Plan: Most recent creatinine is 2.39. Active nephrology follow-up. Plan Patient states that he would like to switch over his care to [facility] and he already has an appointment with Dr. Faria. Coding Level of Care Code Est Pt Level 4 (10800) Complex EM visit Add On G2211 Diagnoses Status post mitral valve repair Z98.890 Cardiomyopathy, unspecified type I42.9 Cardiomyopathy type: unspecified Atherosclerotic cardiovascular disease I25.10 Paroxysmal atrial fibrillation I48.0 PVC (premature ventricular contraction) I49.3 Normally functioning cardiac pacemaker present Z95.0 CKD (chronic kidney disease) N18.9 CPT Codes EKG - CPT: [id number], Complete ([id number])
--- OUTSIDE RECORDS SUMMARY | 2024-06-06 08:36 | XMS_ITS | Encounter Summary ---
Author Organization [facility] Address [address] [place] [address] Care Team Providers Care Knitting Machine Fixer Head Name Role Phone Gerda Feldman MD Primary Care Provider Jaylen Amin MD Unavailable Robert Crockett MD Unavailable [phone] Osmel Huerta MD Unavailable [phone] Wil Deras MD Unavailable Encounter Details Date Type Department Care Team (Late st Contact Info) Description 09/05/2020 Scanned Document [address] [place] [address] Provider, Janett, [address] [place] [address] Social History Tobacco Use Types Packs/Day Years Used Date Smoking Tobacco: Former Smokeless Tobacco: Never Alcohol Use Standard Drinks/Week Comments Yes 2 (1 standard drink = 0.6 oz pur e alcohol) Last drink 04/30/2020 AUDIT-C Answer Date Recorded Q1: How often do you have a drink containing alc ohol? Monthly or less 03/01/2020 Q2: How many drinks containi ng alcohol do you have on a typical day when you are drinking? Not asked 03/01/2020 Q3: How often do you have si x or more drinks on one occasion? Not asked 03/01/2020 Sex and Gender Information Value Date Recorded Sex Assigned at Not on file Gender Identity Not on file Sexual Orientation Not on file COVID-19 Exposure Response Date Recorded In the last month, have you been in contact with someone who was confirmed or suspected to have Coronavirus / COVID-19? No / Unsure 09/04/2020 2:24 PM EDT documented as of this encounter Plan of Treatment Not on file documented as of this encounter Visit Diagnoses Not on filedocumented in this encounter Care Teams Knitting Machine Fixer Head Relationship Specialty Start Date End Date Gerda Feldman MD [address] [place] [address] [place] [address] PCP - General Internal Medicine 02/05/20 Jaylen Amin MD [address] [address] Commercial Real Estate Paralegal Cardiovascular Disease 02/05/20 Robert Crockett MD [address] [address] Physician Cardiac Electrophysiology 03/01/2004/29 Osmel Huerta MD [address] [place] [address] [address] [place] [address] Surgery, General 09/04/20 Wil Deras MD [address] [place] [id number] Cardiovascular Disease 04/30/21 documented as of this encounter
--- OUTSIDE RECORDS SUMMARY | 2024-06-06 08:36 | XMS_ITS | Encounter Summary ---
Author Organization [facility] Address [address] [place] [address] Care Team Providers Care Security Management Specialist Name Role Phone Gerda Feldman MD Primary Care Provider [phone] Jaylen Amin MD Unavailable [phone] Robert Crockett MD Unavailable [phone] Osmel Huerta MD Unavailable [phone] Wil Deras MD Unavailable Reason for Visit * Reason Comments Results Encounter Details Date Type Department Care Team ([facility] st Contact Info) Description 09/01/[address] [address] Robert Crockett MD [address] [place] [address] Results Social History Tobacco Use Types Packs/Day Years [...] PM EDT documented as of this encounter Miscellaneous Notes * Telephone Encounter - Pamelaashish Cardona - 09/01/2020 10:31 AM EDT Patient had testing done last week. Patient states he had a stress test, Holter Monitor and an echodone. Patient requested a call back to discuss results if they are available. documented in this encounter Plan of Treatment Not on file documented as of this encounter Visit Diagnoses Not on filedocumented in this encounter Care Teams Security Management Specialist Relationship Specialty Start Date End Date Gerda Feldman MD [address] [place] [id number] PCP - General Internal Medicine 02/05/20 Jaylen Amin MD [address] [place] [address] Senior Electrical Engineer Cardiovascular Disease 02/05/20 Robert Crockett MD [address] [place] [address] Physician Cardiac Electrophysiology 03/01/2004/29 Osmel Huerta MD [address] [place] [address] [place] [address] Surgery, General 09/04/20 Wil Deras MD [address] [place] [address] Cardiovascular Disease 04/30/21 documented as of this encounter
--- OUTSIDE RECORDS SUMMARY | 2024-06-06 08:37 | XMS_ITS | Encounter Summary ---
Author Organization Formerly [facility] Address [address] [place] [address] Care Team Providers Care Animal Trainer Name Role Phone Gerda Feldman MD Primary Care Provider [phone] Jaylen Amin MD Unavailable [phone] Robert Crockett MD Unavailable [phone] Osmel Huerta MD Unavailable [phone] Wil Deras MD Unavailable Encounter Details Date Type Department Care Team (Late st Contact Info) Description 03/11/2021 Telephone [facility] Heart & Vascular [place] - Electrophysiology [address] [place] [address] Wil Deras MD [address] [place] [address] Social History Tobacco Use Types Packs/Day Years Used Date Smoking Tobacco: Former Smokeless Tobacco: Never Alcohol Use Standard Drinks/Week Comments Not Currently 2 (1 standard drink = 0.6 oz [...] on file Sexual Orientation Not on file documented as of this encounter Miscellaneous Notes * Telephone Encounter - Aguila Gutiérrez RN - 03/11/2021 11:17 AM EST Returned pt called. Answered all questions with regards to arrival time for his procedure on 03/16. documented in this encounter Plan of Treatment Not on file documented as of this encounter Visit Diagnoses Not on filedocumented in this encounter Care Teams Animal Trainer Relationship Specialty Start Date End Date Po, Gerda Medley MD [address] [place] [address] PCP - General Internal Medicine 02/05/20 Jaylen Amin MD [address] [address] Traveling Crane Operator Cardiovascular Disease 02/05/20 Robert Crockett MD [address] [address] Physician Cardiac Electrophysiology 03/01/2004/29 Osmel Huerta MD [address] [place] [address] Drive [address] [place] [address] Surgery, General 09/04/20 Wil Deras MD [address] [place] [address] Cardiovascular Disease 04/30/21 documented as of this encounter
--- OUTSIDE RECORDS SUMMARY | 2024-06-06 08:37 | XMS_ITS | Encounter Summary ---
Author Organization Formerly [facility] Address [address] [place] [address] Care Team Providers Care Unstacker Name Role Phone Gerda Feldman MD Primary Care Provider Jaylen Amin MD Unavailable Robert Crockett MD Unavailable [phone] Osmel Huerta MD Unavailable [phone] Wil Deras MD Unavailable Encounter Details Date Type Department Care Team (Late st Contact Info) Description 02/13/2021 Telephone [facility] Heart & Vascular [place] - Electrophysiology [address] [place] [address] Wil Deras MD [address] [place] [address] Social History Tobacco Use Types Packs/Day Years [...] have Coronavirus / COVID-19? No / Unsure 02/03/2021 3:09 PM EDT documented as of this encounter Plan of Treatment Not on file documented as of this encounter Visit Diagnoses Not on filedocumented in this encounter Care Teams Unstacker Relationship Specialty Start Date End Date Gerda Feldman MD [address] [place] [address] [place] [address] PCP - General Internal Medicine 02/05/20 Jaylen Amin MD [address] [address] Legal Services Professional Cardiovascular Disease 02/05/20 Robert Crockett MD [address] [address] Physician Cardiac Electrophysiology 03/01/2004/29 Osmel Huerta MD [address] [place] [address] [address] [place] [address] Surgery, General 09/04/20 Wil Deras MD [address] [place] [address] Cardiovascular Disease 04/30/21 documented as of this encounter
--- OUTSIDE RECORDS SUMMARY | 2024-06-06 08:37 | XMS_ITS | Encounter Summary ---
Author Organization [facility] Address [address] [place] [address] Care Team Providers Care Nursing Support Worker Name Role Phone Gerda Feldman MD Primary Care Provider [phone] Jaylen Amin MD Unavailable Robert Crockett MD Unavailable [phone] Osmel Huerta MD Unavailable [phone] Wil Deras MD Unavailable Reason for Visit * Reason Comments Appointment Encounter Details Date Type Department Care Team (Late st Contact Info) Description 01/08/2021 Telephone [facility] Heart & Vascular [place] - Electrophysiology [address] [place] [address] Wil Deras MD [address] [place], [place] [id number] Appointment Social History Tobacco Use Types Packs/Day Years [...] have Coronavirus / COVID-19? No / Unsure 01/09/2021 8:13 AM EDT documented as of this encounter Plan of Treatment Not on file documented as of this encounter Visit Diagnoses Not on filedocumented in this encounter Care Teams Nursing Support Worker Relationship Specialty Start Date End Date Gerda Feldman MD [address] [place] [address] [facility] [place] [address] PCP - General Internal Medicine 02/05/20 Jaylen Amin MD [address] [address] Financial Reporting Director Cardiovascular Disease 02/05/20 Robert Crockett MD [address] [address] Physician Cardiac Electrophysiology 03/01/2004/29 Osmel Huerta MD [address] [place] [address] Surgery, General 09/04/20 Wil Deras MD [address] [place] [address] Cardiovascular Disease 04/30/21 documented as of this encounter
--- OUTSIDE RECORDS SUMMARY | 2024-06-06 08:37 | XMS_ITS | Encounter Summary ---
Author Organization [facility] Address [address] [place] [address] Care Team Providers Care Fourchette Sewer Name Role Phone Gerda Feldman MD Primary Care Provider [phone] Jaylen Amin MD Unavailable [phone] Robert Crockett MD Unavailable [phone] Osmel Huerta MD Unavailable [phone] Wil Deras MD Unavailable Encounter Details Date Type Department Care Team (Late st Contact Info) Description 05/06/2020 Prep for Surgery [facility] Heart & Vascular [place] - Electrophysiology [address] [place] [address] [place] [id number] Sophie tGz, COMPUTER RECYCLING WORKER [address] [address] Social History Tobacco Use Types Packs/Day Years Used Date Smoking Tobacco: Former Smokeless Tobacco: Never Alcohol Use Standard Drinks/Week Comments Yes 0 (1 standard drink = 0.6 oz pur e alcohol) AUDIT-C Answer Date Recorded Q1: How often [...] have Coronavirus / COVID-19? No / Unsure 05/07/2020 6:34 AM EST documented as of this encounter Plan of Treatment Not on file documented as of this encounter Visit Diagnoses Not on filedocumented in this encounter Additional Health Concerns Infection Onset Date Last Indicated Resolved Time R/O COVID-19 ([facility]I) Comment:Place on Quarantine isolation at this time. Testing is not indicated at this time as we are awaiting roommate test results. 05/09/2020 05/09/2020 05/09/19 9:57 AM EST documented as of this encounter Care Teams Fourchette Sewer Relationship Specialty Start Date End Date Gerda Feldman MD [address] [place] [address] [facility] [place] [address] PCP - General Internal Medicine 02/05/20 Jaylen Amin MD [address] [address] Paving Foreman Cardiovascular Disease 02/05/20 Robert Crockett MD [address] [address] Physician Cardiac Electrophysiology 03/01/2004/29 Osmel Huerta MD [address] [place] [address] [address] [place] [address] Surgery, General 09/04/20 Wil Deras MD [address] [place] [address] Cardiovascular Disease 04/30/21 documented as of this encounter
--- OUTSIDE RECORDS SUMMARY | 2024-06-06 08:37 | XMS_ITS | Continuity of Care Document ---
Author Organization [facility], [facility], Cardiac EP [facility] Address [address] [facility] [address] [place] [address] Care Team Providers Care Manager Ent Name Role Phone JORDON OROZCO Clinical Cardiac Electrophysiolo gist FRANCA VELA Windows Vmware Administrator ИВАН YANES Primary Care Provider [phone] HAN JONES Cardiac Surgeon CRISTINA LEONARD Customer Support Executive ALF CHAMBERS Physician Air Compressor Mechanic [phone] JOSELINE FULTON Urologist Assessment Encounter Date Assessment Date Assessment LastModified by Organization Details LastModified Time 06/01/2024 06/01/2024 Mr. Quispe wa s seen today in follow up for his history of atrial fibrillation (s/p ablation 05/07/20, AFL ablation 03/16/21 and MAZE 11/12/21), high grade PVCs (s/p ablation 05/07/20) and dual chamber PPM. He also has a history of surgical left atrial appendage clipping and mitral valve repair 11/12/21. Since our last office visit he had a 7-hour episode of atrial fibrillation which was provoked by the heat and 1 alcoholic beverage. He has not had any recurrent A-fib since that time. He has a high CHADS2 Vascor of 5 and is status post left atrial appendage clipping at the time of his mitral valve repair and maze procedure. However according to the patient and recent CESILIA shows a Linq around the left atrial appendage. I have recommended that he go back on Eliquis for stroke prevention given his elevated CHADS2 Vascor and prior stroke. He has declined oral anticoagulation and understands there is a risk of stroke. We have his AF alerts that to 1 hour. If we do see recurrent A-fib, I told him that we would need him to go back on anticoagulation immediately. In the meantime he will be following up with his analytical chemist regarding alternative procedures, possibly a Watchman to close the left atrial appendage leak. He continues to have ventricular ectopy as noted on his interrogation today but is asymptomatic. He had a an echocardiogram last year which shows a preserved ejection fraction. We also see short episodes of NSVT. Again he has been in asymptomatic. A prior cardiac catheterization did not show coronary artery disease, PET scan did not show any inflammation and a recent echo again showed a preserved ejection fraction. He has been intolerant of beta-blockers. Therefore at this point we will monitor him closely. With regard to his A-fib again his burden is low. He understands the importance of avoiding alcohol, keeping his blood pressure and weight under control to prevent future bouts of A-fib. I did not make any changes to his medical regimen or to his device today. We will continue to follow him remotely and I will see him back in the office in 6 months. Not available 06/01/2024 16:15:40 Plan of Treatment Reminders Order Date Submit Date Provider Last Modified By Organization Details Last Modified Time Details Appointments EP Follow Up 45 2024 03:15P ARCHANA Banks Not available Not available Not available Lab None recorded. Referral None recorded. Procedures None recorded. Surgeries None recorded. Imaging electroca rdiogram 2024 025 In-House Results, For Internal Use Only, Do Not Delete/merge, [id number] 06/01/2024 16:16:49 Medication Orders None recorded. Patient TargetsNo targets recorded. Patient Instructions Encounter Date Encounter Id Patient Instructions Last Modified By Organization Details Last Modified Time 06/01/2024 [id number] I spent a total of {{# of minutes 35#}} minutes on the same date of service providing oxny-mm-kxau and gkt-kwlx-bv-face patient care. Not available 06/01/2024 16:16:54 Reason for Referral None Reported. Results Created Date Observation Date Name Description Value Unit Range Abnormal Flag Note LastModifiedBy Organization Detail LastModifiedTime 05/05/19 25 05/03/2024 remot e devic e inter rogat ion (PROC ) No observ ation record ed. [id number] Not Available 2024 15:46:47 06/01/19 25 06/01/2024 elect rocar diogr am No observ ation record ed. YOUSUF In-House Results For Internal Use Only, Do Not Delete/merge, [id number] 06/01/2024 16:16:01 06/01/19 25 elect rocar diogr am No observ ation record ed. [email or web address] Not Available 06/04 08:55:40 Result Notes None recorded. Problems Name Problem SNOMED Code Status Onset Date Resolution Date Notes Provider Name and Address Organization Details Recorded Time Atrial flutter 4330280 Active Jane guajardo, [place] - Johann [facility] 2 14:43:55 Persisten t atrial fibrillat ion 666136124 Active Jane Watt null, [place] - Johann [facility] 2 14:44:26 Rupture of tendon 459044616 Active Nontrauma tic L ankle Jane Watt null, [place] - Johann [facility] 2 14:45:26 History of cardiover vita 341245396703 08 Active Jane Watt null [place] - Johann [facility] 2 14:45:57 Cerebrova scular accident 212897698 Active Jane Watt null, [place] - [facility] 2 14:46:07 Dyspnea 465966636 Active Jane Watt null, [place] - Johann [facility] 2 14:46:19 Insomnia 257483004 Active Jane Watt null, [place] - [facility] 2 14:46:34 Nerve injury 99647027 Active Right Arm Jane Watt null [place] - Johann [facility] 2 14:47:21 Arthritis 2173386 Active Right Foot Jane Watt null, [place] - Johann [facility] 2 14:47:56 Cardiac arrhythmi a 946015682 Active 2022 Arden Cosme null, [place] - [facility] 3 13:53:39 Palpitati ons 88064579 Active 2022 ARCHANA CARIAS [address] [place] [address], [place], [address], [facility] 3 14:57:10 Paroxysma l atrial fibrillat ion 260821432 Active 2022 ARCHANA CARIAS [address] [place] [address], [place], [place], [address] [place] [address] 8, [facility] - [facility] 3 14:59:34 Ventricul ar premature beats 14515195 Active 2022 ARCHANA CARIAS [address] [place] [address], [place], [place], [address] [place] [address] 8, [facility] - [facility] 3 14:59:56 Left atrial appendage absent 192531067 Active 2022 s/p clipping of GABRIEL at time of MV repair, 2021 ARCHANA Cooper [address] [place] [address], [place], [address], [facility] - [facility] 4 09:17:42 Left bundle branch hemiblock 3273355 Active 2022 ARCHANA CARIAS [address] [place] [address], [place], [address], [facility] - [facility] 3 15:03:55 Right bundle branch block AND left anterior fascicula r block 38332403 Active 2022 ARCHANA CARIAS [address] [place] [address], [place], [address], [facility] - [facility] 3 15:26:05 Cardiac pacemaker in situ 804369459 Active DEVICE MODEL [id number] Barber? XT MRI DEVICE SERIAL NUMBER [id number] DEVICE TYPE Pacemaker DATE OF IMPLANT 28-Nov-19 22 pt transferr ed into 's remote clinic from [place] 12/13/2023 Phoebe Mccracken RN [address], [place], [address], [place] - [facility] 12:20:39 Nonsustai marcelo ventricul ar tachycard ia 335654920 Active 2023 ARCHANA Cooper [address] [place] [address], [place], [address], [place] - [facility] 12:44:39 Problem Notes None recorded. Procedures Surgical History Date Name Laterality Status Provider Name and Address Organization Details Recorded Time 06/01/19 25 In-person Programming of Pacemaker: Dual Chamber CPT 62974,26 completed ARCHANA Cooper [address] [place] [address], [place], [address], [place] - [facility] 06/01/2024 16:12:50 05/14/19 25 insertion of stent into urethra completed Joi loya [place] - [facility] 06/01/2024 15:31:08 12/05/19 24 In-person Programming of Pacemaker: Dual Chamber CPT 46027,26 completed ARCHANA Cooper [address] [place] [address], [place], [address], [place] - [facility] 12/05/2023 16:20:31 06/06/19 24 In-person Programming of Pacemaker: Dual Chamber CPT 40794,26 completed ARCHANA Cooper [address] [place] [address], [place], [address], [place] - [facility] 06/07/2023 12:27:03 11/27/19 23 In-person Programming of Pacemaker: Dual Chamber CPT 90577,26 completed ARCHANA Cooper [address] [place] [address], [place], [address], [place] - [facility] 11/26/2022 16:11:31 05/27/19 23 In-person Programming of Pacemaker: Dual Chamber CPT 19146,26 completed ARCHANA CARIAS [address] [place] [address], [place], [address], [place] - [facility] 05/27/2022 15:17:02 04/25/19 23 Hernia repair: Incisional completed Jane Watt [place] - [facility] 12/05/2023 15:26:37 02/05/20 22 In-person Programming of Pacemaker: Dual Chamber CPT 46084,26 completed Jordon Orozco MD [address], [place], [address], [place] - [facility] 02/04/2022 17:05:28 11/28/19 22 cardiac pacemaker procedure completed Han Mills RN [address], [place], [address], [place] - [facility] 02/04/2022 16:16:27 11/13/19 22 Maze procedure completed Han Mills RN [address], [place], [address], [place] - [facility] 11/24/2021 13:27:31 11/13/19 22 atrial appendage excision completed Han Mills RN [address], [place], [address], [place] - [facility] 11/24/2021 13:27:59 04/25/19 22 Other completed Jane ALLEN - [facility] 12/05/2023 15:26:37 04/25/19 22 Pacemaker completed Jane ALLEN - [facility] 12/05/2023 15:26:37 03/16/20 21 catheter ablation of arrhythmogenic focus completed Jane ALLEN - [facility] 09/23/2021 14:50:10 05/07/19 21 catheter ablation of arrhythmogenic focus completed Jane ALLEN - [facility] 09/23/2021 14:49:31 05/07/19 21 catheter ablation of arrhythmogenic focus completed Jane Watt CT - [facility] 09/23/2021 14:49:45 04/25/19 21 Hernia repair: Inguinal completed aJne ALLEN - [facility] 12/05/2023 15:26:37 04/25/19 19 Cataract removal / Lens implant [facility] 12/05/2023 15:26:37 04/25/19 13 operative procedure on cartilage completed [facility]ovani Watt [facility] 09/23/2021 14:51:05 04/25/19 13 Shoulder joint surgery completed [facility]ani Watt [facility] 09/23/2021 14:51:34 04/25/19 13 Shoulder repair completed [facility]ovani Watt [facility] 12/05/2023 15:26:37 04/25/19 02 LASIK completed Jane Shukri [facility] 12/05/2023 15:26:37 Tonsillectomy completed Jane Shukri [facility] 09/23/2021 14:52:05 repair of mitral valve completed Han Mills RN [address] [place] [address],[address], [place], [address], [facility], [facility] 11/24/2021 13:31:59 Imaging Results Imaging Date Name Status LastModified by Organization Details LastModified Time 06/01/2024 electrocardiogram completed YOUSUF In-Hous e Results For Internal Use Only, Do Not Delete/merge, [id number] 06/01/2024 16:16:01 Procedure Notes None recorded. Medical Equipment None Reported. Allergies Allergen ID Allergen Name Allergen Category Reaction Reaction Severity Criticality Documentation Date Start Date Code Code System Note Provider Name and Address Organization Details Recorded Time 022324 metoprolo l Not available dizziness palpitati ons severe Not available Not available 09/23/2021 6918 RxNorm Jane guajardo [facility] 2 14:56:20 885613 Substance with sulfonami de structure and antibacte rial mechanism of action (substanc e) medicatio n Not available Not available Not available 09/23/2021 41479 8003 SNOMED Unsur e Child moreland react ion Jane guajardo [facility] Johann [facility] 2 14:57:02 447598 gabapenti n medicatio n other moderate Not available 02/04/2022 38531 RxNorm Beni ce & gate Han Mills RN [address], [place], [address], [facility] 2 16:11:28 102873 Product containin g 3-hydroxy -3-methyl glutaryl- coenzyme A reductase inhibitor (product) medicatio n muscle cramps severe Not available 02/04/2022 07604 009 SNOMED Han Mills RN [address], [place], [address], [facility] 2 16:12:03 886655 amoxicill in medicatio n rash Not available Not available 11/26/2022 723 RxNorm David gujaardo, [facility] 3 15:16:47 Medications Name [...] Available Not Available tamsulosin 0.4 mg capsule TAKE 1 CAPSULE BY MOUTH AT BEDTIME FOR 14 DAYS 06/01 completed Not Available Not Available Not Available meclizine 25 mg tablet TAKE 1 [...] Available Not Available zolpidem 10 mg tablet TAKE 1 TABLET BY MOUTH AT BEDTIME NEEDED FOR INSOMNIA active Not Available Not Available No t [...] tablet TAKE 1 TABLET BY MOUTH DAILY 06/01 completed Not Available Not Available Not Available Vitamin C 2 tablets daily active [...] 1 TABLET BY MOUTH AT BEDTIME/ NEEDED 06/01 completed Not Available Not Available Not Available BinaxNOW COVID-19 Ag Self Test kit TEST DIRECTED TODAY 12/04 completed Not Available Not Available Not Available Vitals Date Recorded Body height Body mass index (BMI) Body weight Respiratory rate Heart rate Oxygen saturation Oxygen saturation in Arterial blood by Pulse oximetry Systolic blood pressure Diastolic blood pressure Provider Name and Address Organization Details Last Updated DateTime 187.96 cm 25 kg/m2 00142.5 1 g 16 /min 74 /min 98 % 98 % 118 mm[Hg] 68 mm[Hg] Joi loya [facility] 15:34:54 Social History Question Answer Notes LastModified by Organizat ion Details LastModified Time Tobacco Smoking Status Former Smoker quit greater than 40 years Annette Cuellar RN [address] [facility] [address], [place], [address], [facility] 09/28/2021 13:21:29 Do You Have An Advance Directive? Yes [email or web address] Information not available 06/06/2023 What Is Your Level Of Alcohol Consumption? Occasional Information not available 11/26/2022 How Many Times Per Week Do You Consume Alcohol? Less Than 1 Time Per Week Information not available 06/06/2023 Is Blood Transfusion Acceptable In An Emergency? Yes Information not available 06/06/2023 What Is Your Level Of Caffeine Consumption? Moderate 1-2 Cups Of Coffee Information not available 06/06/2023 What Type Of Diet Are You Following? CARDIAC Information not available 09/28/2021 When Did You Quit Smoking? 16+yearssincel astcigarette Information not available 06/06/2023 Do You Have A Helminthologist (loved One Involved In Your Care)? No Information not available 11/26/2022 Do You Feel Safe At Home? Yes Information not available 09/28/2021 Over The Last 3 Months, Have You Struggled With Housing? No Information not available 12/05/2023 Over The Last 3 Months, Have You Struggled With Access To Food? No [email or web address] Information not available 12/05/2023 Over The Last 3 Months, Have You Struggled With Utilities? No [email or web address] Information not available 12/05/2023 Over The Last 3 Months, Have You Struggled With Transportation? No [email or web address] Information not available 12/05/2023 Over The Last 3 Months, Have You [place] Unsafe In Your Relationship? No [email or web address] Information not available 12/05/2023 What Was The Date Of Your Most Recent Tobacco Screening? 06/01/2024 [email or web address] Information not available 06/01/2024 How Many Children Do You Have? 2 Information not available 09/28/2021 Do You Use Any Illicit Or Recreational Drugs? No [email or web address] Information not available 06/06/2023 Has Tobacco Cessation Counseling Been Provided? No [email or web address] Information not available 12/05/2023 How Many Years Have You Smoked Tobacco? 15 Information not available 06/06/2023 Do You Or Have You Ever Used Any Other Forms Of Tobacco Or Nicotine? No Information not available 06/06/2023 Sex: Male Functional Status Question Answer Note LastModified by Organizat ion Details LastModified Time What is your exercise level? Occasional [email or web address] Information not available 06/06/2023 Mental Status None recorded. Family History Relationship Description Onset Age of this Age Resolved Age Notes LastModified by Organization Details LastModified Time Mother Dementia 97 [email or web address] Not availa ble 09/23/2021 14:55:32 Father Family history of stroke 87 [email or web address] Not available 04/2021 14:55:47 Notes:11/26/22 JG Medical [...] SNOMED-CT Code Diagnosis ICD10 Code Diagnosis Note [id number] ARCHANA Cooper Cardiac EP TEMP [place] [address] [facility] [address] [place] [address] 06/01/2024 15:17:26 06/04/2024 11:25:01 Cardiac arrhythmia 485048017 I49.9 Cardiac pa willie in situ 275917375 Z95.0 Atrial flutter 8426755 I 48.92 Left atria l appendage absent 892990988 Q20.8 Health Concerns Section Related Observation LastModified by Organization Detai ls LastModified Time None Recorded Concern Status LastModified by Organization Details LastModified Time None Recorded Payers Encounter Date Sequence Insurance Name Policy Number Policy Shelby Covered Member ID Shelby Member ID Guarantor Name 06/01/2024 1 MEDICARE B-[place]: NGS Eliazar Quispe [id number] Eliazar Quispe 06/01/2024 2 [place] [id number] Eliazar Quispe [id number] Eliazar Quispe Notes Date Note Type Note Provider Name and Address Organization Details Recorded Time 06/01/2024 text/html To review, Mr. Eliazar Quispe is a pleasant 74 y.o. man who I first saw on 03/01/20 in regards to persistent atrial fibrillation, high-grade ventricular ectopy, reduction in ejection fraction, mitral regurgitation, and congestive heart failure. He is a very complex case.To try to tie things together, he overall in the past was very athletic and enjoyed excellent health. 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 He was referred to Dr. White at [facility]. As far as I can tell, [...] time.More recently, he was admitted to [facility] on 01/18/20 with increasing shortness of [...] admission, he had an echocardiogram at [facility] done on 01/16/20. 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 He has a son Han who lives in [place].I would note that one of the possibilities [...] preadmission lab studies were drawn at [facility]. His vitamin B12 level was [...] also showed 2500 PACs. We reviewed his Flurry ari which showed episodes of possible A. [...] any cardiac complaints. He was using his Flurry ari routinely which was showing sinus rhythm. A Holter monitor done prior to our visit showed a significant decline in his PVC burden and PAC burden. We did not make any changes to his medication. I asked that he follow-up with his analytical chemist regarding the mitral regurgitation noted on his echocardiogram.He did have a hernia repair shortly after that visit.However in December 2020 he was found to have atrial flutter on his Blinka ari which was also confirmed on an EKG.He was brought to the EP lab on March 16, [address] Deras and underwent a successful ablation of mitral valve flutter with both epicardial and endocardial ablation. He was [facility] at [facility] in April 2021. He denied any recurrence of arrhythmias or palpitations. He was using his cardia monitor daily which did not show any atrial fibrillation or rapid heartbeats. He reported occasional chest discomfort and we asked him to follow-up with his analytical chemist. We also felt he should have another [...] left atrium was severely dilated measuring 4.4 cm? ? ?. There was moderate MR.He was seen in [...] a Medtronic dual-chamber unit which is an Barber XT DR device. The device is programmed [...] and he had a follow-up with his analytical chemist. PVC counters showed 75/h. He had an echocardiogram on December 16, 2022. This showed an ejection fraction of 57% with mild to moderate mitral regurgitation. His most recent blood work on May 27, 2023 shows a creatinine of 1.82, potassium of 4.3, LDL of 61, total cholesterol 154 and HDL of 89. He was seen in the office on June 06, [...] 20, 2023 was negative for any inflammation. Echocardiogram on November 29, 2023:Normal LV function with an EF of 55 to 60%, mild to moderate MR with known prior mitral valve repair, mildly dilated ascending aorta. No pericardial effusion. LA diameter 3.9. He was last seen on December 05, 2023 and reported fatigue. He was diagnosed with anemia and also had chronic kidney disease. He had close follow-up with his screen printing machine operator helper. We noted frequent PVCs on his device interrogation and brief episodes of nonsustained VT. We increased his base rate from 60 bpm to 70 bpm to suppress his PVCs. We recommended a magnesium supplement. We received an alert from his home monitor showing a 7-hour episode of atrial fibrillation that occurred on February 02, 2024. The patient had a wine cooler the night before and feels the episode was provoked by the alcohol and dehydration. As we could not reset the alerts on his pacemaker, we recommended that he start Eliquis for stroke prevention given his elevated CHADS2 Vascor. The patient declined starting anticoagulation. Ultimately he did start Eliquis. However this medication was discontinued once his alerts were reset to 1 hour. We also left a message with his analytical chemist to consider a CESILIA to see if the left atrial appendage is completely walled off as he had a resection at the time of his MVR/MAZE. Since that time, he reports having a CESILIA through his analytical chemist which apparently showed a leak at the left atrial appendage clipping site. The patient contacted our office for our recommendations. Given his elevated NXC0PX1-GXGu score of 5, I recommended that he restart Eliquis. He declined going back on the medication and understood there is a risk of stroke. We also recommended he see a structural analytical chemist to see if he is a candidate for a Watchman procedure depending on the size of the left atrial appendage leak. I offered to send him to a physician in [place] but since he lives in [place], he wanted to find someone in his area. He comes in today for follow-up. He is feeling well and denies palpitations, chest pain or shortness of breath. He is seeing his analytical chemist next month and will be seeing someone regarding the left atrial appendage leak as well. ARCHANA Cooper [address] [facility],[address], [place], [address], [place] - [facility] 06/01/2024 16:17:21
--- OUTSIDE RECORDS SUMMARY | 2024-06-06 08:38 | XMS_ITS | Encounter Summary ---
Author Organization [facility] Address [address] [place] [id number] Care Team Providers Care Material Controller Name Role Phone Gerda Feldman MD Primary Care Provider Jaylen Amin MD Unavailable Robert Crockett MD Unavailable [phone] Osmel Huerta MD Unavailable [phone] Wil Deras MD Unavailable Encounter Details Date Type Department Care Team (Late st Contact Info) Description 02/15/2020 Scanned Document [address] [place] [address] Provider, Janett, [address] [place] [address] Social History Tobacco Use Types Packs/Day Years Used Date Smoking Tobacco: Never Assessed Sex and Gender Information Value Date Recorded Sex Assigned at Not on file Gender Identity Not on file Sexual Orientation Not on file documented as of this encounter Plan of Treatment Not on file documented as of this encounter Visit Diagnoses Not on filedocumented in this encounter Additional Health Concerns Infection Onset Date Last Indicated Resolved Time R/O COVID-19 ([facility]) Comment:Place on Quarantine isolation at this time. Testing is not indicated at this time as we are awaiting roommate test results. 05/09/2020 05/09/2020 05/09/19 21 9:57 AM EST documented as of this encounter Care Teams Material Controller Relationship Specialty Start Date End Date Gerda Feldman MD [address] [place] [address] [place] [address] PCP - General Internal Medicine 02/05/20 Jaylen Amin MD [address] [address] Triple Valve Tester Cardiovascular Disease 02/05/20 Robert Crockett MD [address] [address] Physician Cardiac Electrophysiology 03/01/2004/29 Osmel Huerta MD [address] [place] [address] Drive [address] [place] [address] Surgery, General 09/04/20 Wil Deras MD [address] [place] [id number] Cardiovascular Disease 04/30/21 documented as of this encounter
--- OUTSIDE RECORDS SUMMARY | 2024-06-06 08:38 | XMS_ITS | Data Portability ---
Author Organization [facility], [facility], Primary Care [facility] Walk Address [address] [place] [address] Care Team Providers Care Auto Bumper Mechanic Name Role Phone JORDON OROZCO Clinical Cardiac Electrophysiolo gist FRANCA VELA Building Carpenter Helper ИВАН YANES Primary Care Provider HAN JONES Cardiac Surgeon CRISTINA LEONARD Cheese Cutter ALF CHAMBERS Physician Games Dealer [phone] JOSELINE FULTON Urologist Assessment Encounter Date Assessment Date Assessment LastModified by Organization Details LastModified Time 05/27/2022 05/27/2022 It was a pleasur e [...] rhythm sinus bradycardia. Battery longevity 13.2yrs to FABRIC CUTTER. Device mode AAIR <=> DDDR 60-130 bpm. Lead parameters are stable. WORK ADJUSTMENT INSTRUCTOR <0.1%, AP 93.1%. No atrial or ventricular [...] were made. He will refer to his chemical processing equipment repairer for any blood pressure control guidelines. He [...] Not available 05/27/2022 15:27:54 11/26/2022 11/26/2022 Mr. Quispe wa s seen today in [...] on September 26 and occurred in the yield improvement engineer hours. The other 2 episodes were in [...] a stress test. He is seeing his chemical processing equipment repairer on December 02. The patient will bring this up with his chemical processing equipment repairer and I will send him a copy [...] Not available 11/26/2022 16:25:29 06/06/2023 06/06/2023 Mr. Quispe wa s seen today in [...] I will discuss this with the patient's chemical processing equipment repairer to see if they can arrange for this where Mr. Quispe lives in [place]. We will await PET scan and genetics. I will see him back in the office in 6 months. I left a message on the patient's cell phone after our visit to discuss the above. I also left a message with his chemical processing equipment repairer asking him to call me to discuss PET scan. Not available 06/08/2023 10:06:56 12/05/2023 12/05/2023 Mr. Quispe wa s seen today in [...] hour. His monitor is followed by his chemical processing equipment repairer. He continues to have frequent PVCs as [...] will obtain his recent echo from his chemical processing equipment repairer office. His main concern is fatigue, anemia and chronic kidney disease. He has follow-up with nephrology next week. I have asked him to call us if he develops any palpitations. He has close follow-up with his chemical processing equipment repairer. I would like to see him back in the office in 6 months. Not available 12/05/2023 16:23:52 06/01/2024 06/01/2024 Mr. Jose Enrique tobias s seen today [...] he will be following up with his chemical processing equipment repairer regarding alternative procedures, possibly a Watchman to [...] recorded. Surgeries None recorded. Imaging electroca rdiogram 2022 023 In-House Results, For Internal Use Only, Do Not Delete/merge, [id number] 05/27/2022 15:29:01 electroca rdiogram 2022 023 In-House Results, For Internal Use Only, Do Not Delete/merge, [id number] 11/26/2022 16:14:21 electroca rdiogram 2023 024 In-House Results, For Internal Use Only, Do Not Delete/merge, [id number] 06/06/2023 16:39:34 electroca rdiogram 2023 024 In-House Results, For Internal Use Only, Do Not Delete/merge, [id number] 12/05/2023 16:24:44 electroca rdiogram 2024 025 In-House Results, For Internal Use Only, Do Not Delete/merge, [id number] 06/01/2024 16:16:49 Medication Orders None recorded. Patient TargetsNo targets recorded. Patient Instructions Encounter Date Encounter Id Patient Instructions Last Modified By Organization Details Last Modified Time 05/27/2022 [id number] - From an electrophysiology perspective, we feel it is low risk for you to discontinue taking Coumadin - We are STOPPING your Amiodarone - Please refer to your chemical processing equipment repairer's recommendations regarding your blood pressure recommendations - Follow up in 6 months for routine follow up Not available 05/27/2022 14:36:02 I spent a total of {{# of minutes 25#}} minutes on the same date of service providing iftr-fk-dukx and thk-spym-kq-face patient care. Not available 05/27/2022 14:28:45 11/26/2022 [id number] I spent a total of {{# of minutes 35#}} minutes on the same date of service providing ofbp-kg-knep and ock-gqrk-oy-face patient care. Not available 11/26/2022 15:59:24 06/06/2023 [id number] I spent a total of {{# of minutes 35#}} minutes on the same date of service providing vydt-aq-wqni and xxx-eycy-gb-face patient care. Not available 06/06/2023 16:54:15 12/05/2023 [id number] I spent a total of {{# of minutes 35#}} minutes on the same date of service providing xqwy-qa-cimu and ngz-hvmh-cs-face patient care. Not available 12/05/2023 16:23:56 06/01/2024 [id number] I spent a total of {{# of minutes 35#}} minutes on the same date of service providing vuct-jo-vzsc and dds-fpsy-dn-face patient care. Not available 06/01/2024 16:16:54 Reason for Referral None Reported. Results Created Date Observation Date Name Description Value Unit Range Abnormal Flag Note LastModifiedBy Organization Detail LastModifiedTime 05/27/1905/27/2022 j carlos beckmangr am No observ ation record ed. In-House Results For Internal Use Only, Do Not Delete/merge, [id number] 05/27/2022 15:25:52 05/27/19 elect rocar diogr am No observ ation record ed. [email or web address] Not Available 05/2022 14:03:56 05/28/19 23 05/27/2022 elect rocar diogr am No observ ation record ed. [email or web address] In-House Results For Internal Use Only, Do Not Delete/merge, [id number] 05/28/2022 11:23:34 05/28/19 23 05/27/2022 ignacio regalado ion (PROC ) No observ ation record ed. [email or web address] Not Available 2022 11:27:20 11/27/19 23 11/26/2022 elect rocar diogr am No observ ation record ed. YOUSUF In-House Results For Internal Use Only, Do Not Delete/merge, [id number] 11/26/2022 16:14:20 11/27/19 23 elect rocar diogr am No observ ation record ed. [email or web address] Not Available 10/2022 06:56:31 12/06/19 23 11/26/2022 devic e check (PROC ) No observ ation record ed. [email or web address] Not Available 2022 23:01:26 06/02/19 24 12/16/2022 trans -thor acic echoc ardio gram (TTE) (PROC ) No observ ation record ed. [facility] [address] [place] [address], [place], [address], 06/02/2023 13:58:09 06/06/19 24 06/06/2023 elect rocar diogr am No observ ation record ed. YOUSUF In-House Results For Internal Use Only, Do Not Delete/merge, [id number] 06/06/2023 16:39:33 06/06/19 24 elect rocar diogr am No observ ation record ed. Not Available 2023 16:43:35 06/19/19 24 06/08/2023 devic e check (PROC ) No observ ation record ed. [email or web address] Not Available 2023 11:37:54 06/22/19 24 06/22/2023 PET, heart No observ ation record ed. [email or web address] [facility] [address] [place], [place], [address], 06/23/2023 09:16:18 12/05/19 24 12/05/2023 elect rocar diogr am No observ ation record ed. YOUSUF In-House Results For Internal Use Only, Do Not Delete/merge, [id number] 12/05/2023 16:25:03 12/05/19 24 elect rocar diogr am No observ ation record ed. Not Available 2023 16:25:04 12/06/19 24 11/29/2023 , echo ardio gram No observ ation record ed. [email or web address] Not Available 10:41:26 12/11/19 24 12/05/2023 devic [...] For Internal Use Only, Do Not Delete/merge, [id number] 06/01/2024 16:16:01 06/01/19 elect rocar diogr am No observ ation record ed. [email or web address] Not Available 06/04 08:55:40 Result Notes None recorded. Problems Name Problem SNOMED Code Status Onset Date Resolution Date Notes Provider Name and Address Organization Details Recorded Time Atrial flutter 8047144 Active ALEJANDRO Ma [facility] 2 14:43:55 Persisten t atrial fibrillat ion 470074284 Active ALEJANDRO Ma [facility] 2 14:44:26 Rupture of tendon 828059021 Active Nontrauma tic L ankle ALEJANDRO Ma [facility] 2 14:45:26 History of cardiover vita 669404477656 08 Active ALEJANDRO Ma [facility] 2 14:45:57 Cerebrova scular accident 627323841 Active Janeyovani Watt null, [place] - [facility] 2 14:46:07 Dyspnea 048819996 Active [facility]ri null, [place] [facility] 2 14:46:19 Insomnia 372323334 Active Janeyovani Watt null, [place] - [facility] 2 14:46:34 Nerve injury 23243782 Active Right Arm Janeyovani Watt null, [place] [facility] 2 14:47:21 Arthritis 9800040 Active Right Foot Jane Shukri null, [place] - [facility] 2 14:47:56 Cardiac arrhythmi a 701647643 Active 2022 Arden Cosme null, [facility] 3 13:53:39 Palpitati ons 35624763 Active 2022 ARCHANA CARIAS [address] [place] [address], [place], [address], [facility] 3 14:57:10 Paroxysma l atrial fibrillat ion 218183106 Active 2022 ARCHANA CARIAS [address] [place] [address], [place], [address], [place] - [facility] 3 14:59:34 Ventricul ar premature beats 54637128 Active 2022 ARCHANA CARIAS [address], [place], [address], [facility] - [facility] 3 14:59:56 Left atrial appendage absent 059809811 Active 2022 s/p clipping of GABRIEL at time of MV repair, 2021 ARCHANA Cooper [address] [place] [address], [place], [address], 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 XT MRI DEVICE SERIAL NUMBER [id number] DEVICE TYPE Pacemaker DATE OF IMPLANT 28-Nov-19 22 pt transferr ed into 's remote clinic from [place] 12/13/2023 Phoebe Mccracken RN [address] [place] [address], [place], [address], [place] - [facility] 4 12:20:39 Nonsustai marcelo ventricul ar tachycard ia 194214928 Active 2023 ARCHANA Cooper [address] [place] [address], [place], [address], [facility] 4 12:44:39 Problem Notes None recorded. Procedures Surgical History Date Name Laterality Status Provider Name and Address Organization Details Recorded Time 06/01/19 25 In-person Programming of Pacemaker: Dual Chamber CPT 41289,26 completed AR[address]NA Cooper [address] [place] [address], [place], [address], [place] [facility] 06/01/2024 16:12:50 05/14/19 25 insertion of stent into urethra completed Joi loya [place] - [facility] 06/01/2024 15:31:08 12/05/19 24 In-person Programming of Pacemaker: Dual Chamber CPT 67767,26 completed [address] Cooper [address] [place] [address], [place], [address], [place] - [facility] 12/05/2023 16:20:31 06/06/19 24 In-person Programming of Pacemaker: Dual Chamber CPT 70812,26 completed ARCHANA Cooper [address] [place] [address], [place], [address], [place] - [facility] 06/07/2023 12:27:03 11/27/19 23 In-person Programming of Pacemaker: Dual Chamber CPT 40795,26 completed ARCHANA Cooper [address], [place], [address], [place] - [facility] 11/26/2022 16:11:31 05/27/19 23 In-person Programming of Pacemaker: Dual Chamber CPT 82429,26 completed ARCHANA CARIAS [address] [place] [address], [place], [address], [place] - [facility] 05/27/2022 15:17:02 04/25/19 23 Hernia repair: Incisional completed Jane Watt [place] - [facility] 12/05/2023 15:26:37 02/05/20 22 In-person Programming of Pacemaker: Dual Chamber CPT 96497,26 completed Jordon Orozco MD [address] [place] [address], [place], [address], [place] - [facility] 02/04/2022 17:05:28 11/28/19 22 cardiac pacemaker procedure completed Han Mills RN [address] [place] [address], [place], [address], [place] - [facility] 02/04/2022 16:16:27 11/13/19 22 Maze procedure completed Han Mills RN [address] [place] [address], [place], [address], [place] - [facility] 11/24/2021 13:27:31 11/13/19 22 atrial appendage excision completed Han Mills RN [address] [place] [address], [place], [address], [place] - [facility] 11/24/2021 13:27:59 04/25/19 22 Other [facility] 12/05/2023 15:26:37 04/25/19 22 [facility] 12/05/2023 15:26:37 03/16/20 21 catheter ablation of arrhythmogenic focus [facility] 09/23/2021 14:50:10 05/07/19 21 catheter ablation of arrhythmogenic focus completed Jane Franklinaxel ALLEN [facility] 09/23/2021 14:49:31 05/07/19 21 catheter ablation of arrhythmogenic focus completed [facility] 09/23/2021 14:49:45 04/25/19 21 Hernia repair: Inguinal [facility] 12/05/2023 15:26:37 04/25/19 19 Cataract removal / Lens implant [facility] 12/05/2023 15:26:37 04/25/19 13 operative procedure on cartilage completed [facility] 09/23/2021 14:51:05 04/25/19 13 Shoulder joint surgery [facility] 09/23/2021 14:51:34 04/25/19 13 Shoulder repair completed [facility] 12/05/2023 15:26:37 04/25/19 02 LASIK [facility] 12/05/2023 15:26:37 Tonsillectomy [facility] 09/23/2021 14:52:05 repair of mitral valve completed Han Mills RN [address] [place] [address],[address], [place], [address], [facility] 11/24/2021 13:31:59 Imaging Results Imaging Date Name Status LastModified by Organization Details LastModified Time 05/27/2022 electrocardiogram completed In-Hous e Results For Internal Use Only, Do Not Delete/merge, [id number] 05/27/2022 15:25:52 05/27/2022 electrocardiogram completed Infor mation not available 05/27/2022 14:03:56 05/27/2022 electrocardiogram completed In-Hous e Results For Internal Use Only, Do Not Delete/merge, [id number] 05/28/2022 11:23:34 05/27/2022 pacemaker interrogation (PROC) completed [email or web address] Information not available 05/28/2022 11:27:20 11/26/2022 electrocardiogram completed [email or web address] In-Hous e Results For Internal Use Only, Do Not Delete/merge, [id number] 11/26/2022 16:14:20 11/26/2022 electrocardiogram completed Infor mation not available 11/29/2022 06:56:31 11/26/2022 device check (PROC) completed [email or web address] Infor mation not available 12/05/2022 23:01:26 12/16/2022 trans-thoracic echocardiogram (TTE) (PROC) completed [email or web address] [facility] [address] [place] [address], [address], 06/02/2023 13:58:09 06/06/2023 electrocardiogram completed [email or web address] In-Hous e Results For Internal Use Only, Do Not Delete/merge, [id number] 06/06/2023 16:39:33 06/06/2023 electrocardiogram completed Informa tion not available 06/06/2023 16:43:35 06/08/2023 device check (PROC) completed [email or web address] Infor mation not available 06/19/2023 11:37:54 06/22/2023 PET, heart completed [email or web address] [facility] [address] [place] [address] [address], [place], [address], 06/23/2023 09:16:18 12/05/2023 electrocardiogram completed YOUSUF In-Hous e Results For Internal Use Only, Do Not Delete/merge, [id number] 12/05/2023 16:25:03 12/05/2023 electrocardiogram completed Informa tion not available 12/05/2023 16:25:04 11/29/2023 US, echocardiogram completed [email or web address] Inf ormation not available 12/06/2023 10:41:26 12/05/2023 device check (PROC) completed [email or web address] Infor mation not available 12/11/2023 12:43:00 02/02/2024 remote device interrogation (PROC) completed [email or web address] Information not available 02/04/2024 12:22:39 02/02/2024 remote device interrogation (PROC) completed [email or web address] Information not available 02/04/2024 12:23:29 05/03/2024 remote device interrogation (PROC) completed [email or web address] Information not available 05/05/2024 15:46:47 06/01/2024 electrocardiogram completed [email or web address] In-Hous e Results For Internal Use Only, Do Not Delete/merge, [id number] 06/01/2024 16:16:01 06/01/2024 electrocardiogram completed [email or web address] Informa tion not available 06/04/2024 08:55:40 Procedure Notes None recorded. Medical Equipment None Reported. Allergies Allergen ID Allergen Name Allergen Category Reaction Reaction Severity Criticality Documentation Date Start Date Code Code System Note Provider Name and Address Organization Details Recorded Time 565417 metoprolo l Not available dizziness palpitati ons severe Not available Not available 09/23/2021 6918 RxNorm [facility] 2 14:56:20 746137 Substance with sulfonami de structure and antibacte rial mechanism of action (substanc e) medicatio n Not available Not available Not available 09/23/2021 92231 8003 SNOMED Unsur e Child moreland react ion ALEJANDRO Ma [facility] 2 14:57:02 280846 gabapenti n medicatio n other moderate Not available 02/04/2022 48840 RxNorm Beni ce & gate Han Mills RN [address] [facility],[address], [place], [address] , [facility] 2 16:11:28 510817 Product containin g 3-hydroxy -3-methyl glutaryl- coenzyme A reductase inhibitor (product) medicatio n muscle cramps severe Not available 02/04/2022 57822 009 SNOMED Han Mills, RN [address] [facility], [place], [address], [facility] 2 16:12:03 052563 amoxicill in medicatio n rash Not available Not available 11/26/2022 723 RxNorm David Rivas [facility], [facility] 3 15:16:47 Medications Name [...] Updated DateTime 3 187.96 cm 23.6 kg/m2 79687 g 16 /min 98 % 98 % 67 /min 108 mm[Hg] 70 mm[Hg] Arden Cosme [facility] 3 13:53:30 Date Recorded Body height Body mass index (BMI) Body weight Systolic blood pressure Diastolic blood pressure Provider Name and Address Organization Details Last Updated DateTime 11/26/2022 187.96 cm 23.1 kg/m2 58301.63 g 112 mm[Hg] 64 mm[Hg] David Rivas [facility] 3 15:22:35 Date Recorded Body height Body mass index (BMI) Body weight Respiratory rate Heart rate Oxygen saturation Oxygen saturation in Arterial blood by Pulse oximetry Systolic blood pressure Diastolic blood pressure Provider Name and Address Organization Details Last Updated DateTime 4 187.96 cm 23.1 kg/m2 48382.6 3 g 16 /min 62 /min 99 % 99 % 110 mm[Hg] 62 mm[Hg] Lonaliz Arellano [facility] 4 15:20:27 Date Recorded Body height Body mass index (BMI) Body weight Respiratory rate Body temperature Oxygen saturation Oxygen saturation in Arterial blood by Pulse oximetry Heart rate Systolic blood pressure Diastolic blood pressure Provider Name and Address Organization Details Last Updated DateTime 4 187.96 cm 24.4 kg/m2 07142.5 5 g 16 /min 99.1 [degF] 99 % 99 % 55 /min 126 mm[Hg] 70 mm[Hg] Jane Watt [facility] 4 15:37:28 Date Recorded Body height Body mass index (BMI) Body weight Respiratory rate Heart rate Oxygen saturation Oxygen saturation in Arterial blood by Pulse oximetry Systolic blood pressure Diastolic blood pressure Provider Name and Address Organization Details Last Updated DateTime 5 187.96 cm 25 kg/m2 43964.5 1 g 16 /min 74 /min 98 % 98 % 118 mm[Hg] 68 mm[Hg] Joitheresa loya [facility] 5 15:34:54 Social History Question Answer Notes LastModified by Organizat ion Details LastModified Time Tobacco Smoking Status Former Smoker quit greater than 40 years Annette Cuellar, RN [address] [facility],[address], [place], [address], [facility] 09/28/2021 13:21:29 Do You Have An Advance Directive? Yes [email or web address] Information not available 06/06/2023 What Is Your Level Of Alcohol Consumption? Occasional Information not available 11/26/2022 How Many Times Per Week Do You Consume Alcohol? Less Than 1 Time Per Week Information not available 06/06/2023 Is Blood Transfusion Acceptable In An Emergency? Yes [email or web address] Information not available 06/06/2023 What Is Your Level Of Caffeine Consumption? Moderate 1-2 Cups Of Coffee Information not available 06/06/2023 What Type Of Diet Are You Following? CARDIAC Information not available 09/28/2021 When Did You Quit Smoking? 16+yearssincel [email or web address] Information not available 06/06/2023 Do You Have A Meatman (loved One Involved In Your Care)? No Information not available 11/26/2022 Do You Feel Safe At Home? Yes Information not available 09/28/2021 Over The Last 3 Months, Have You Struggled With Housing? No [email or web address] Information not available 12/05/2023 Over The Last 3 Months, Have You Struggled With Access To Food? No [email or web address] Information not available 12/05/2023 Over The Last 3 Months, Have You Struggled With Utilities? No [email or web address] Information not available 12/05/2023 Over The Last 3 Months, Have You Struggled With Transportation? No [email or web address] Information not available 12/05/2023 Over The Last 3 Months, Have You [place] Unsafe In Your Relationship? No [email or web address] Information not available 12/05/2023 What Was The Date Of Your Most Recent Tobacco Screening? 06/01/2024 [email or web address] Information not available 06/01/2024 How Many Children Do You Have? 2 Information not available 09/28/2021 Do You Use Any Illicit Or Recreational Drugs? No [email or web address] Information not available 06/06/2023 Has Tobacco Cessation Counseling Been Provided? No [email or web address] Information not available 12/05/2023 How Many Years [...] Organization Details LastModified Time Mother Dementia 97 [email or web address] Not availa ble 09/23/2021 14:55:32 Father Family history of stroke 87 [email or web address] Not available 04/2021 14:55:47 Notes:11/26/22 JG Medical History Condition Response Gout N Atrial Fibrillation Y High Blood Pressure N Thyroid problems N Blood disorders N Asbestos exposure N Colonoscopy N Glaucoma N COPD N [...] Acid Reflux N Osteopenia or osteoporosis N Gallstones N PVC (Premature Ventricular Contractions) Y Any complications or ill effects related to an anesthetic N Palpitation N Auto-immune disease N Anxiety disorder N Anemia N Heart Block Y Ventricular Tachycardia N Diabetes N Bladder disease N Alcoholism/Substance Abuse N Fainting spells N Lung disease (pneumonia, TB, emphysema) N Heart disease Y Diverticulitis N Heart Attack N Asthma N Allergies N Atrial Flutter Y Breast disease N Sickle cell disease N Any blood relative who had anesthesia co mplications N SVT (Supraventricular Tachycardia) N Sleep Apnea N Past Encounters Encounter ID Performer Location Encounter Start Date Encounter Closed Date Diagnosis/Indication Diagnosis SNOMED-CT Code Diagnosis ICD10 Code Diagnosis Note [id number] Devorah Pan APRN Cardiac EP [address] [place] [address] 09/28/2021 12:47:43 09/28/2021 14:08:29 Cardiac arrhythmia 090104735 I49.9 Paroxysmal atrial fibrillation 985023356 I48.0 Cardiomyopathy 05646652 I42.9 [id number] Jordon Orozco MD Cardiac EP [place] [address] [place] [address] 02/04/2022 15:47:13 02/04/2022 17:17:51 Palpitations 02411161 R00.2 [id number] ARCHANA CARIAS Cardiac EP [place] [address] [place] [address] 05/27/2022 13:34:44 05/27/2022 14:36:21 Cardiac arrhythmia 670174831 I49.9 Palpitations 94021587 R0 0.2 History of radiofrequency ablation operation for arrhythmia 324518325 Z98.890 Paroxysmal atrial fibrillation 086325485 I48.0 Ventricula r premature beats 58776057 I49.3 History of maze procedure for atrial fibrillation 686939520 Z98.890 History of repair of mitral valve 362288106 Z98.890 Left atria l appendage absent 961882972 Q20.8 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 40245750 I44.4 Cardiomyopathy 97797614 I42.9 [id number] ARCHANA Cooper Cardiac EP [facility] [place] [address] [place] [id number] 11/26/2022 14:57:35 11/26/2022 16:03:00 Cardiac arrhythmia 412820029 I49.9 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 86785694 I44.4 Persistent atrial fibrillation 225271531 I48.19 Cardiac pa cemaker in situ 517425496 Z95.0 [id number] ARCHANA Cooper Cardiac EP [facility] [place] [address] [place] [address] 06/06/2023 14:43:25 06/06/2023 16:06:44 Cardiac arrhythmia 902631177 I49.9 Atrial flutter 8085881 I 48.92 Cardiac pa cemaker in situ 931609846 Z95.0 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 81081247 I44.4 Nonsustain ed monomorphic ventricular tachycardia 7510534908 I47.29 [id number] ARCHANA Cooper Cardiac EP [facility] [place] [address] [place] [address] 12/05/2023 15:13:26 12/05/2023 16:18:04 Cardiac arrhythmia 603885641 I49.9 Atrial flutter 8492062 I 48.92 Cardiac pa cemaker in situ 553253637 Z95.0 Nonsustain ed ventricular tachycardia 512541954 I47.20 [id number] ARCHANA Cooper Cardiac EP [facility] [place] [address] [facility] [place] [address] 06/01/2024 15:17:26 06/04/2024 11:25:01 Cardiac arrhythmia 345883621 I49.9 Cardiac pa cemaker in situ 738219249 Z95.0 Atrial flutter 3348486 I 48.92 Left atria l appendage absent 525102010 Q20.8 Health Concerns Section Related Observation LastModified by Organization Detai ls LastModified Time None Recorded Concern Status LastModified by Organization Details LastModified Time None Recorded Advance Directives Directive Y: Payers Encounter Date Sequence Insurance Name Policy Number Policy Shelby Covered Member ID Shelby Member ID Guarantor Name 05/27/2022 1 MEDICARE B-CT: NGS Eliazar Berriosinger [id number] Eliazar Wenninger 05/27/2022 2 [place] [id number] Eliazar Berriosinger [id number] Eliazar Wenninger 11/26/2022 1 MEDICARE B-CT: NGS Eliazar Berriosinger [id number] Eliazar Wenninger 11/26/2022 2 [place] [id number] Eliazar Berriosinger [id number] Eliazar Wenninger 06/06/2023 1 MEDICARE B-CT: NGS Eliazar Dowlingnninger [id number] Eliazar Wenninger 06/06/2023 2 [place] [id number] Eliazar Dowlingnninger [id number] Eliazar Wenninger 12/05/2023 1 MEDICARE B-CT: NGS Eliazar Dowlingnninger [id number] 24 Eliazar Wenninger 12/05/2023 2 [place] [id number] Eliazar Dowlingnninger [id number] Eliazar Wenninger 06/01/2024 1 MEDICARE B-CT: NGS Eliazar Dowlingnninger [id number] Eliazar Wenninger 06/01/2024 2 [place] [id number] Eliazar Quispe [id number] Eliazar Quispe Notes Date Note Type Note Provider Name and Address Organization Details Recorded Time 05/27/2022 text/html To review, Mr. Eliazar Quispe [...] excellent health. 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 He was referred to Dr. White at [facility]. As far as I can tell, [...] that time.More recently, he was admitted to [facility] on 01/18/20 with increasing shortness of [...] that admission, he had an echocardiogram at [facility] done on 01/16/20. 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 He has a son Han who lives in [place].I would note that one of the possibilities [...] distribution.His preadmission lab studies were drawn at [facility]. His vitamin B12 level was [...] also showed 2500 PACs. We reviewed his VONTRAVEL ari which showed episodes of possible A. [...] any cardiac complaints. He was using his [employer] ari routinely which was showing sinus rhythm. A Holter monitor done prior to our visit showed a significant decline in his PVC burden and PAC burden. We did not make any changes to his medication. I asked that he follow-up with his chemical processing equipment repairer regarding the mitral regurgitation noted on his echocardiogram.He did have a hernia repair shortly after that visit.However in December 2020 he was found to have atrial flutter on his VONTRAVEL ari which was also confirmed on an EKG.He was brought to the EP lab on March 16, 2021 by and underwent a successful ablation of mitral valve flutter with both epicardial and endocardial ablation.He was last seen in the office at [facility] in April 2021. He had been doing [...] We asked him to follow-up with his chemical processing equipment repairer regarding need for further work-up. His EKG was unchanged compared to prior tracings and his cardiac examination was within normal limits with the exception of occasional ectopic beats. We deferred a repeat echocardiogram to his chemical processing equipment repairer given the findings of mitral regurgitation on his last echocardiogram. He remained anticoagulated with Eliquis for his [id number] score of 4. We discussed the importance [...] dilated measuring 4.4 cm? ? ?. There is moderate returns to the office [...] like getting out of bed. Despite his chemical processing equipment repairer increasing his carvedilol dose he has not [...] was severely dilated measuring 4.4 cm? ? ? and he had moderate MR. Today in [...] the procedure. We will defer to his chemical processing equipment repairer for longitudinal monitoring of his mitral regurgitation. [...] amiodarone. I spoke to Dr. Vela his chemical processing equipment repairer 10/01/2021. It was felt that he might [...] he is going to consult with a manager strategic marketing. Overall again however he feels significantly improved and is getting back to himself. I would note that I did have an echocardiogram today at [facility] we will be getting the results. [...] very active. He will be seeing his chemical processing equipment repairer next week. He asked that we verify [...] is on Coumadin for anticoagulation. ARCHANA CARIAS [address] [place] [address],[address], [place], [address], [facility], [facility] [place] [facility] 05/27/2022 15:28:36 11/26/2022 text/html To review, Mr. [...] excellent health. 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 He was referred to Dr. White at [facility]. As far as I can tell, [...] that time.More recently, he was admitted to [facility] on 01/18/20 with increasing shortness of [...] that admission, he had an echocardiogram at [facility] done on 01/16/20. 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 He has a son Han who lives in [place].I would note that one of the possibilities [...] distribution.His preadmission lab studies were drawn at [facility]. His vitamin B12 level was [...] also showed 2500 PACs. We reviewed his VONTRAVEL ari which showed episodes of possible A. [...] any cardiac complaints. He was using his VONTRAVEL ari routinely which was showing sinus rhythm. A Holter monitor done prior to our visit showed a significant decline in his PVC burden and PAC burden. We did not make any changes to his medication. I asked that he follow-up with his chemical processing equipment repairer regarding the mitral regurgitation noted on his echocardiogram.He did have a hernia repair shortly after that visit.However in December 2020 he was found to have atrial flutter on his [employer] ari which was also confirmed on an EKG.He was brought to the EP lab on March 16, [address] Deras and underwent a successful ablation of mitral valve flutter with both epicardial and endocardial ablation. He was seen at [facility] in April 2021. He denied any recurrence of arrhythmias or palpitations. He was using his cardia monitor daily which did not show any atrial fibrillation or rapid heartbeats. He reported occasional chest discomfort and we asked him to follow-up with his chemical processing equipment repairer. We also felt he should have another [...] remote monitoring is being followed by his chemical processing equipment repairer. ARCHANA Cooper [address] [place] [address],[address], [place], [address], [facility], [facility] [place] [facility] 11/26/2022 16:26:06 06/06/2023 text/html To review, Mr. [...] excellent health. 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 He was referred to Dr. White at [facility]. As far as I can tell, [...] that time.More recently, he was admitted to [facility] on 01/18/20 with increasing shortness of [...] that admission, he had an echocardiogram at [facility] done on 01/16/20. 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 He has a son Han who lives in [place].I would note that one of the possibilities [...] distribution.His preadmission lab studies were drawn at [facility]. His vitamin B12 level was [...] also showed 2500 PACs. We reviewed his Kardia ari which showed episodes of possible A. [...] any cardiac complaints. He was using his VONTRAVEL ari routinely which was showing sinus rhythm. A Holter monitor done prior to our visit showed a significant decline in his PVC burden and PAC burden. We did not make any changes to his medication. I asked that he follow-up with his chemical processing equipment repairer regarding the mitral regurgitation noted on his echocardiogram.He did have a hernia repair shortly after that visit.However in December 2020 he was found to have atrial flutter on his VONTRAVEL ari which was also confirmed on an EKG.He was brought to the EP lab on March 16, [address] Deras and underwent a successful ablation of mitral valve flutter with both epicardial and endocardial ablation. He was seen at [facility] in April 2021. He denied any recurrence of arrhythmias or palpitations. He was using his cardia monitor daily which did not show any atrial fibrillation or rapid heartbeats. He reported occasional chest discomfort and we asked him to follow-up with his chemical processing equipment repairer. We also felt he should have another [...] and he had a follow-up with his chemical processing equipment repairer. PVC counters showed 75/h. He had an [...] to his discomfort. He is seeing his chemical processing equipment repairer tomorrow. He has a home monitor which is being followed by his chemical processing equipment repairer. ARCHANA Cooper [address] [place] [address],[address], [place], [address], [facility], [facility] [place] [facility] 06/08/2023 10:07:34 12/05/2023 text/html To review, Mr. [...] excellent health. 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 He was referred to Dr. White at [facility]. As far as I can tell, [...] that time.More recently, he was admitted to [facility] on 01/18/20 with increasing shortness of [...] that admission, he had an echocardiogram at [facility] done on 01/16/20. 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 He has a son Han who lives in [place].I would note that one of the possibilities [...] distribution.His preadmission lab studies were drawn at [facility]. His vitamin B12 level was [...] also showed 2500 PACs. We reviewed his VONTRAVEL ari which showed episodes of possible A. [...] any cardiac complaints. He was using his VONTRAVEL ari routinely which was showing sinus rhythm. A Holter monitor done prior to our visit showed a significant decline in his PVC burden and PAC burden. We did not make any changes to his medication. I asked that he follow-up with his chemical processing equipment repairer regarding the mitral regurgitation noted on his echocardiogram.He did have a hernia repair shortly after that visit.However in December 2020 he was found to have atrial flutter on his VONTRAVEL ari which was also confirmed on an EKG.He was brought to the EP lab on March 16, [address] Deras and underwent a successful ablation of mitral valve flutter with both epicardial and endocardial ablation. He was seen at [facility] in April 2021. He denied any recurrence of arrhythmias or palpitations. He was using his cardia monitor daily which did not show any atrial fibrillation or rapid heartbeats. He reported occasional chest discomfort and we asked him to follow-up with his chemical processing equipment repairer. We also felt he should have another [...] and he had a follow-up with his chemical processing equipment repairer. PVC counters showed 75/h. He had an [...] breath, palpitations, near-syncope or syncope. ARCHANA Cooper [address] [place] [address],[address] [place], [address], [facility], [facility] 12/05/2023 16:24:46 06/01/2024 text/html To review, Mr. Eliazar Quispe [...] excellent health. 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 He was referred to Dr. White at [facility]. As far as I can tell, [...] that time.More recently, he was admitted to [facility] on 01/18/20 with increasing shortness of [...] that admission, he had an echocardiogram at [facility] done on 01/16/20. 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 He has a son Han who lives in [place].I would note that one of the possibilities [...] distribution.His preadmission lab studies were drawn at [facility]. His vitamin B12 level was [...] also showed 2500 PACs. We reviewed his VONTRAVEL ari which showed episodes of possible A. [...] any cardiac complaints. He was using his VONTRAVEL ari routinely which was showing sinus rhythm. A Holter monitor done prior to our visit showed a significant decline in his PVC burden and PAC burden. We did not make any changes to his medication. I asked that he follow-up with his chemical processing equipment repairer regarding the mitral regurgitation noted on his echocardiogram.He did have a hernia repair shortly after that visit.However in December 2020 he was found to have atrial flutter on his VONTRAVEL ari which was also confirmed on an EKG.He was brought to the EP lab on March 16, [address] Deras and underwent a successful ablation of mitral valve flutter with both epicardial and endocardial ablation. He was seen at [facility] in April 2021. He denied any recurrence of arrhythmias or palpitations. He was using his cardia monitor daily which did not show any atrial fibrillation or rapid heartbeats. He reported occasional chest discomfort and we asked him to follow-up with his chemical processing equipment repairer. We also felt he should have another [...] and he had a follow-up with his chemical processing equipment repairer. PVC counters showed 75/h. He had an [...] disease. He had close follow-up with his manager strategic marketing. We noted frequent PVCs on his device [...] We also left a message with his chemical processing equipment repairer to consider a CESILIA to see if the left atrial appendage is completely walled off as he had a resection at the time of his MVR/MAZE. Since that time, he reports having a CESILIA through his chemical processing equipment repairer which apparently showed a leak at the left atrial appendage clipping site. The patient contacted our office for our recommendations. Given his elevated [id number] score of 5, I recommended that he restart Eliquis. He declined going back on the medication and understood there is a risk of stroke. We also recommended he see a structural chemical processing equipment repairer to see if he is a candidate for a Watchman procedure depending on the size of the left atrial appendage leak. I offered to send him to a physician in [place] but since he lives in [place], he wanted to find someone in his area. He comes in today for follow-up. He is feeling well and denies palpitations, chest pain or shortness of breath. He is seeing his chemical processing equipment repairer next month and will be seeing someone regarding the left atrial appendage leak as well. ARCHANA Cooper [address] [place] [address],[address], [place], [address], [facility], [facility] 06/01/2024 16:17:21
--- OUTSIDE RECORDS SUMMARY | 2024-06-06 08:38 | XMS_ITS | Encounter Summary ---
Author Organization [facility] Address [address] [place] [address] Care Team Providers Care Hand Crown Pouncer Name Role Phone Gerda Feldman MD Primary Care Provider Jaylen Amin MD Unavailable Robert Crockett MD Unavailable [phone] Osmel Huerta MD Unavailable [phone] Wil Deras MD Unavailable Encounter Details Date Type Department Care Team (Late st Contact Info) Description 02/18/2020 Scanned Document [address] [place] [address] Provider, Janett, [address] [place] [address] Social History Tobacco Use Types Packs/Day Years [...] documented as of this encounter Care Teams Hand Crown Pouncer Relationship Specialty Start Date End Date Gerda Feldman MD [address] [place] [address] [place] [address] PCP - General Internal Medicine 02/05/20 Jaylen Amin MD [address] [address] Mortgage Clerk Cardiovascular Disease 02/05/20 Robert Crockett MD [address] [address] Physician Cardiac Electrophysiology 03/01/2004/29 Osmel Huerta MD [address] [place] [address] Drive [address] [place] [address] Surgery, General 09/04/20 Wil Deras MD [address] [place] [address] Cardiovascular Disease 04/30/21 documented as of this encounter
--- OUTSIDE RECORDS SUMMARY | 2024-06-06 08:38 | XMS_ITS | Encounter Summary ---
Author Organization [facility] Address [address] [place] [address] Care Team Providers Care Deburrer Strip Name Role Phone Gerda Feldman MD Primary Care Provider Jaylen Amin MD Unavailable Robert Crockett MD Unavailable [phone] Osmel Huerta MD Unavailable [phone] Wil Deras MD Unavailable Encounter Details Date Type Department Care Team (Late st Contact Info) Description 05/22/2020 Scanned Document [address] [place] [address] Provider, Janett, [address] [place] [address] Social History Tobacco Use Types Packs/Day Years [...] on filedocumented in this encounter Care Teams Deburrer Strip Relationship Specialty Start Date End Date Gerda Feldman MD [address] [place] [address] [place] [address] PCP - General Internal Medicine 02/05/20 Jaylen Amin MD [address] [address] Deputy Coroner Cardiovascular Disease 02/05/20 Robert Crockett MD [address] [address] Physician Cardiac Electrophysiology 03/01/2004/29 Osmel Huerta MD [address] [place] [address] Drive [address] [place] [address] Surgery, General 09/04/20 Wil Deras MD [address] [place] [address] Cardiovascular Disease 04/30/21 documented as of this encounter
--- OUTSIDE RECORDS SUMMARY | 2024-06-06 08:38 | XMS_ITS | Encounter Summary ---
Author Organization [facility] Address [address] [place] [address] Care Team Providers Care Corporate Strategy Intern Name Role Phone Gerda Feldman MD Primary Care Provider Jaylen Amin MD Unavailable Robert Crockett MD Unavailable [phone] Osmel Huerta MD Unavailable Wil Deras MD Unavailable Encounter Details Date Type Department Care Team (Late st Contact Info) Description 02/21/2020 Scanned Document [address] [place] [address] Provider, Janett, [address] [place] [address] Social History Tobacco Use Types Packs/Day Years [...] documented as of this encounter Care Teams Corporate Strategy Intern Relationship Specialty Start Date End Date Gerda Feldman MD [address] [place] [address] [place] [address] PCP - General Internal Medicine 02/05/20 Jaylen Amin MD [address] [address] Rn Corrections Cardiovascular Disease 02/05/20 Robert Crockett MD [address] [address] Physician Cardiac Electrophysiology 03/01/2004/29 Osmel Huerta MD [address] [place] [address] Drive [address] [place] [address] Surgery, General 09/04/20 Wil Deras MD [address] [place] [address] Cardiovascular Disease 04/30/21 documented as of this encounter
--- OUTSIDE RECORDS SUMMARY | 2024-06-06 08:39 | XMS_ITS | Encounter Summary ---
Author Organization [facility] Address [address] [place] [address] Care Team Providers Care Adhesive Sprayer Name Role Phone Gerda Feldman MD Primary Care Provider Jaylen Amin MD Unavailable Robert Crockett MD Unavailable [phone] Osmel Huerta MD Unavailable Wil Deras MD Unavailable Encounter Details Date Type Department Care Team (Late st Contact Info) Description 02/15/2020 Abstract [facility]- [address] [place] [address] [address] Social History Tobacco Use Types Packs/Day Years [...] documented as of this encounter Care Teams Adhesive Sprayer Relationship Specialty Start Date End Date Gerda Feldman MD [address] [place] [address] [place] [address] PCP - General Internal Medicine 02/05/20 Jaylen Amin MD [address] [address] Form Tamping Machine Operator Cardiovascular Disease 02/05/20 Robert Crockett MD [address] [address] Physician Cardiac Electrophysiology 03/01/2004/29 Osmel Huerta MD [address] [place] [address] [address] [place] [address] Surgery, General 09/04/20 Wil Deras MD [address] [place] [address] Cardiovascular Disease 04/30/21 documented as of this encounter
--- OUTSIDE RECORDS SUMMARY | 2024-06-06 08:40 | XMS_ITS | Encounter Summary ---
Author Organization [facility] Address [address] [place] [address] Care Team Providers Care Weft Straightener Name Role Phone Gerda Feldman MD Primary Care Provider Jaylen Amin MD Unavailable [phone] Robert Crockett MD Unavailable [phone] Osmel Huerta MD Unavailable [phone] Wil Deras MD Unavailable Encounter Details Date Type Department Care Team (Late st Contact Info) Description 02/15/[address] [address] Robert Crockett MD [address] [place] [address] [address] [place] [address] Social History Tobacco Use Types Packs/Day Years [...] documented as of this encounter Care Teams Weft Straightener Relationship Specialty Start Date End Date Gerda Feldman MD [address] [place] [address] [place] [address] PCP - General Internal Medicine 02/05/20 Jaylen Amin MD [address] [address] Collections Agent Cardiovascular Disease 02/05/20 Robert Crockett MD [address] [address] Physician Cardiac Electrophysiology 03/01/2004/29 Osmel Huerta MD [address] [place] [address] [address] [place] [address] Surgery, General 09/04/20 Wil Deras MD [address] [place] [address] Cardiovascular Disease 04/30/21 documented as of this encounter
--- OUTSIDE RECORDS SUMMARY | 2024-06-06 08:40 | XMS_ITS | Encounter Summary ---
Author Organization [facility] Address [address] [place] [address] Care Team Providers Care Cosmetics Supervisor Name Role Phone Gerda Feldman MD Primary Care Provider Jaylen Amin MD Unavailable Robert Crockett MD Unavailable [phone] Osmel Huerta MD Unavailable [phone] Wil Deras MD Unavailable Encounter Details Date Type Department Care Team (Late st Contact Info) Description 02/15/2020 Scanned Document [address] [place] [address] Provider, aJnett, [address] [place] [address] Social History Tobacco Use Types Packs/Day Years [...] documented as of this encounter Care Teams Cosmetics Supervisor Relationship Specialty Start Date End Date Gerda Feldman MD [address] [place] [address] [place] [address] PCP - General Internal Medicine 02/05/20 Jaylen Amin MD [address] [address] Transition Teacher Cardiovascular Disease 02/05/20 Robert Crockett MD [address] [address] Physician Cardiac Electrophysiology 03/01/2004/29 Osmel Huerta MD [address] [place] [address] Drive [address] [place] [address] Surgery, General 09/04/20 Wil Deras MD [address] [place] [address] Cardiovascular Disease 04/30/21 documented as of this encounter
--- OUTSIDE RECORDS SUMMARY | 2024-06-06 08:41 | XMS_ITS | Encounter Summary ---
Author Organization [facility] Address [address] [place] [address] Care Team Providers Care Hat Brusher Machine Name Role Phone Gerda Feldman MD Primary Care Provider [phone] Jaylen Amin MD Unavailable [phone] Robert Crockett MD Unavailable [phone] Osmel Huerta MD Unavailable [phone] Wil Deras MD Unavailable Reason for Visit * Reason Comments Advice Only Encounter Details Date Type Department Care Team ([facility] st Contact Info) Description 05/16/[address] [address] Robert Crockett MD [address] [place] [address] [address] [place] [address] Advice Only Social History Tobacco Use Types Packs/Day Years [...] AM EST documented as of this encounter Miscellaneous Notes * Telephone Encounter - Lis Albarado - 05/16/2020 9:50 AM EST Patient notified and he was very grateful. He stated he called [facility] and they havehim on a cancellation list for a sooner holter appointment. Patient states if they get a cancellation, he will have it done sooner. Thank you. * Telephone Encounter - Lis Albarado - 05/16/2020 9:22 AM EST I called patient and explained to him we need to reschedule his follow up. Patient became upset stating he needs the 06/06 appointment due to having two hernias and will need surgery but is unable to schedule due to needing to see our office first. 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 Patient stated his elementary school teacher's aide will not clear him until he sees our office for post ablation visit. Patient was adamant about speaking to [facility] to see if he can come in on 06/06 and then receive his holter results via telephone. I told him I can't make that decision and I was told he needs to reschedule his visit. Patient just kept arguing with me and refused to reschedule so I told him I would send a message back to the nurses. * Telephone Encounter - Amita Yarbrough RN - 05/16/2020 8:49 AM EST Will try to push appt out 7-10 days * Telephone Encounter - Lis Albarado - 05/16/2020 8:22 AM EST Patient called stating he has a post ablation follow up with [facility] on 06/06 and needs a 24hr hour holter prior. Patient states he booked his holter at [facility] in [place] since he lives close but it is not scheduled until 06/05. Patient would like to know if he needs to reschedule the 06/06appointment. Please advise. documented in this encounter Plan of Treatment Not on file documented as of this encounter Visit Diagnoses Not on filedocumented in this encounter Care Teams Hat Brusher Machine Relationship Specialty Start Date End Date Po, Gerda Medley MD [address] [place] [address] [place] [address] PCP - General Internal Medicine 02/05/20 Jaylen Amin MD [address] [address] Traverse Rod Assembler Cardiovascular Disease 02/05/20 Robert Crockett MD [address] [address] Physician Cardiac Electrophysiology 03/01/2004/29 Osmel Huerta MD [address] [place] [address] Drive [address] [place] [address] Surgery, General 09/04/20 Wil Deras MD [address] [place] [address] Cardiovascular Disease 04/30/21 documented as of this encounter
--- OUTSIDE RECORDS SUMMARY | 2024-06-06 08:41 | XMS_ITS | Encounter Summary ---
Author Organization [facility] Address [address] [place] [address] Care Team Providers Care Roll Forming Supervisor Name Role Phone Gerda Feldman MD Primary Care Provider Jaylen Amin MD Unavailable [phone] Osmel Huerta MD Unavailable [phone] Wil Deras MD Unavailable Encounter Details Date Type Department Care Team (Late st Contact Info) Description 07/21/2021 Scanned Document [address] [address] Provider, MD Janett [address] [place] [address] Social History Tobacco Use Types Packs/Day Years [...] on filedocumented in this encounter Care Teams Roll Forming Supervisor Relationship Specialty Start Date End Date Gerda Feldman MD [address] [place] [address] PCP - General Internal Medicine 02/05/20 Jaylen Amin MD [address] [place] [address] Public Safety Dispatcher Cardiovascular Disease 02/05/20 Osmel Huerta MD [address] [place] [address] [address] [place] [address] Surgery, General 09/04/20 Wil Deras MD [address] [place] [address] Cardiovascular Disease 04/30/21 documented as of this encounter
--- OUTSIDE RECORDS SUMMARY | 2024-06-06 08:42 | XMS_ITS | Clinical Summary ---
Author Organization [facility] Address [address] [place] [address] Care Team Providers Care Crusher Machine Operator Name Role Phone Gerda Feldman MD Primary Care Provider [phone] Jaylen Amin MD Unavailable [phone] Osmel Huerta MD Unavailable [phone] Wil Deras MD Unavailable Allergies Active Allergy Reactions Criticality Noted Date Comments Metoprolol Palpitations Medium 03/01/2020 Severe dizziness Sulfa Antibiotics Unknown/Patient and Family Unable to Define Medium 05/07/2020 Pt states he had sulfa as child and does not remember reaction. Medications Medication Sig Dispensed Refills Start Date End Date Status apixaban (ELIQUIS) 5 MG tablet Take 5 mg by mouth 2 (two) times a day. Active zolpidem (AMBIEN) 10 MG tablet Take 10 mg by mouth nightly as needed. for sleep 02/26/2020 Active benzocaine-menthol (CHLORASEPTIC) 15-3.6 mg Lozenge lozengeIndications:P ersistent atrial fibrillation (HCC) Apply 1 lozenge to the mouth or throat every 2 (two) hours as needed (throat discomfort). 42 lozenge 05/08/2020 Active docosanol (ABREVA) 10 % CreamIndications:Her pes labialis Apply topically 5 (five) times a day. 1 Tube 05/08/2020 Active cholecalciferol (CHOLECALCIFEROL) 25 MCG (1000 UT) tablet Take 1,000 Units by mouth daily. Active Ascorbic Acid (vitamin C) 1000 MG tablet Take 6,000 mg by mouth daily. Active Flaxseed, Linseed, (Flax Seed Oil) 1000 MG Cap Take 24,000 mg by mouth. Active carvedilol (COREG) 3.125 MG tabletIndications:Ca rdiomyopathy, unspecified type (HCC) Take 1 tablet (3.125 mg total) by mouth 2 (two) times a day with meals. 180 tablet 3 06/06/2020 Active Cyanocobalamin (VITAMIN B-12 PO) Take 50 mg by mouth daily. Active PATIENT OWN MEDICATION Luten 10 mg every day Active Magnesium 400 MG Cap Take by mouth daily. Active folic acid (Folate) 400 MCG tablet Take 400 mcg by mouth daily. Active [place]-3 Fatty Acids (FISH OIL PO) Take by mouth daily. Active Active Problems Problem Noted Date Diagnosed Date Atrial flutter 02/03/2021 Overview (02/03/2021): Added automatically from request for surgery [id number] Persistent atrial fibrillation 05/07/2020 Tendon rupture, nontraumatic 01/24/2020 Overview (03/01/2020): Alejandra young History of cardioversion 01/15/2020 Stroke 04/25/2018 Dyspnea Ankle edema Insomnia Nerve damage Overview (03/01/2020): Right arm Arthritis Overview (03/01/2020): right foot Family History Medical History Relation Name Comments Stroke Father age 87 Dementia Mother age 97 Relation Name Status Comments Father Mother Social History Tobacco Use Types Packs/Day Years [...] on file Sexual Orientation Not on file Last Filed Vital Signs Vital Sign Reading Time Taken Comments Blood Pressure 114/74 04/30/2021 10:28 AM EST Pulse 86 04/30/2021 10:28 AM EST Temperature 35.7 ??C (96.3 ??F) 03/16/2021 3:39 PM ES T Respiratory Rate 17 04/30/2021 10:28 AM EST Oxygen Saturation 99% 04/30/2021 10:28 AM EST Inhaled Oxygen Concentration - - Weight 84.9 kg (187 lb 3.2 oz) 04/30/2021 10:28 AM EST Height 188 cm (6' 2 ) 04/30/2021 10:28 AM EST Body Mass Index 24.04 04/30/2021 10:28 AM EST Plan of Treatment Health Maintenance Due Date Last Done Comments Hepatitis C Virus Screening 1950 DTaP/Tdap/Td Vaccines (1 - Tdap) 1967 Pneumococcal Vaccines 50+ (1 of 1 - PCV) 1998 Zoster (Shingles) Vaccine (1 of 2) 1998 RSV Vaccine 60 years and older and Patients (1 - 1-dose 75+ series) 2023 Influenza Vaccine 11/24/2023 01/28/2021, , 01/07/2020, Additional history exists COVID-19 Vaccine ( season) 2023 08/07/2021, 01/28/2021, 07/27/2020, Additional history exists Hepatitis B Vaccines Aged Out No long er eligible based on patient's age to complete this topic Advance Directives * Full Code (Latest Code Status on File) Date Activated Date Inactivated Comments 03/16/2021 3:20 PM * Full Code Date Activated Date Inactivated Comments 05/07/2020 7:40 PM 03/16/2021 6:29 AM Care Teams Crusher Machine Operator Relationship Specialty Start Date End Date Po, Gerda Medley MD [address] [place] [address] PCP - General Internal Medicine 02/05/20 Jaylen Amin MD [address] [place] [address] Cut Off Saw Operator Cardiovascular Disease 02/05/20 Osmel Huerta MD [address] [place] [address] Drive [address] [place] [address] Surgery, General 09/04/20 Wil Deras MD [address] [place] [address] Cardiovascular Disease 04/30/21
--- OUTSIDE RECORDS SUMMARY | 2024-06-06 08:42 | XMS_ITS | Data Portability ---
Author Organization [facility], [address] Address [address] [place] [address] Assessment No assessment recorded. Plan of Treatment Reminders Order Date Submit Date Provider Last Modified By Organization Details Last Modified Time Details Appointments None recorded. Lab None recorded. Referral otolaryngol ogist referral - feeling dizzy and vertigo especially waking upm in morning. need further evaluation and treatment. 2022 023 [email or web address] 26 Pratik Rivera MD, [address] [facility], [facility], [place], [address], 3 12:51:32 Procedures None recorded. Surgeries None recorded. Imaging None recorded. Medication Orders meclizine 25 mg tablet 2022 023 [id number], [address] [place], [place], [id number], 19:15:43 Patient TargetsNo targets recorded. Patient Instructions Encounter Date Encounter Id Patient Instructions Last Modified By Organization Details Last Modified Time 06/06/2022 [id number] dizziness: care instructions Not available 06/06/2022 19:14:50 Please drink plenty of fluids. See your doctor or go to the neared emergency department right away if you have vertigo and: -Have a new or severe headache -Have a fever higher than 100.4? ? ?F (38? ? ?C) -Start to see double or have trouble [...] Not available 06/06/2022 19:14:49 Reason for Referral Blocker And Polisher Gold Wheel Referral fo r Benign paroxysmal positional vertigo [...] Address Organization Details Recorded Time Essential hypertension 18508883 Active 2022 IRIS COUVERTIE R null, [place] - [facility] 3 18:23:37 Acute kidney injury 87370070 Active 2022 IRIS COUVERTIE R null, [place] - [facility] 3 18:26:17 Insomnia 431092810 Active 2022 IRIS COUVERTIE R null, [place] - [facility] 3 18:28:02 Problem Notes None recorded. Procedures Surgical History Date Name Laterality Status Provider Name and Address Organization Details Recorded Time hernia repair completed IRIS COUVERTADRIAN PA - [facility] 06/06/2022 18:29:08 Imaging Results None recorded. Procedure Notes None recorded. Medical Equipment None Reported. Allergies Allergen ID Allergen Name Allergen Category Reaction Reaction Severity Criticality Documentation Date Start Date Code Code System Note Provider Name and Address Organization Details Recorded Time 053973 Substance with sulfonami de structure and antibacte rial mechanism of action (substanc e) medicatio n Not available Not available Not available 06/06/2022 05303 8003 SNOMED IRIS COUVERTIE R null, [place] - [facility] 3 18:21:58 010297 gabapenti n medicatio n dizziness Not available Not available 06/06/2022 17397 RxNorm IRIS COUVERTIE R null, [place] - [facility] 3 18:22:14 119079 rosuvasta tin medicatio n edema Not available Not available 06/06/2022 01955 2 RxNorm KRISHNA Muñoz bennett, [place] - [facility] 3 18:22:51 Medications Name Sig [...] TABLETS BY MOUTH EVERY DAY DIRECTED BY [facility] 06/06 completed Not Available Not Available Not [...] Updated DateTime 3 187.96 cm 23.8 kg/m2 09312.5 9 g 100 % 100 % 66 /min 18 /min 97.8 [degF] 139 mm[Hg] 73 mm[Hg] KRISHNA Muñoz PA - [facility] 3 18:29:41 Social History Question Answer Notes LastModified [...] SNOMED-CT Code Diagnosis ICD10 Code Diagnosis Note [id number] [address] [facility] [place] [address] 08/09/2016 14:01:54 08/09/2016 14:52:09 [id number] [address] [facility] [place] [address] 10/08/2019 14:19:37 10/08/2019 15:46:07 [id number] [address] [facility] [place] [address] 06/14/2020 09:23:40 06/14/2020 09:53:11 [id number] [address] [facility] [place] [address] 12/31/2018 10:08:17 12/31/2018 10:53:03 [id number] [address] [facility] [place] [address] 06/08/2016 13:08:05 06/08/2016 14:31:43 [id number] [address] [facility] [place] [address] 01/02/2020 17:09:44 01/02/2020 17:43:56 [id number] [address] [facility] [place] [address] 12/18/2019 15:16:32 12/18/2019 16:26:12 [id number] [address] [facility] [place] [address] 02/19/2016 13:00:02 02/19/2016 13:30:00 [id number] [address] [facility] [place] [address] 02/13/2016 15:03:43 02/13/2016 15:28:04 [id number] [address] [facility] [place] [address] 12/08/2017 08:46:06 12/08/2017 09:50:44 [id number] [address] [facility] [place] [address] 03/16/2020 15:48:34 03/16/2020 18:27:17 [id number] [address] [place] [address] [place] [address] 04/30/2020 13:25:07 04/30/2020 18:52:16 [id number] ARCHANA JAIMES [address] [facility] [place] [address] 06/06/2022 15:33:14 07/27/2022 19:27:19 Left without being seen [id number] 9102 Z53.21 [id number] Leroy Crandall NP [address] [facility] [place] [address] 06/06/2022 17:13:56 06/06/2022 19:17:57 Benign paroxysmal positional vertigo [id number] H81.10 Health Concerns Section Related Observation LastModified by Organization Detai ls LastModified Time None Recorded Concern Status LastModified by Organization Details LastModified Time None Recorded Advance Directives Directive None Recorded Payers Encounter Date Sequence Insurance Name Policy Number Policy Shelby Covered Member ID Shelby Member ID Guarantor Name 03/16/2020 1 [place] [employer] [place] Eliazar Quispe [id number] Eliazar Quispe 03/16/2020 2 [place] [id number] Eliazar Quispe [id number] Eliazar Quispe 04/30/2020 1 [place] Eliazar Quispe [id number] Eliazar Berriosinger 04/30/2020 2 [place] [id number] Eliazar Quispe [id number] Eliazar Berriosinger 06/14/2020 1 [place] [employer] [place] Eliazar Berriosinger [id number] Eliazar Berriosinger 06/14/2020 2 [place] [id number] Eliazar Berriosinger [id number] Eliazar Berriosinger 06/06/2022 1 [place] [employer] Eliazar Quispe [id number] Eliazar Berriosinger 06/06/2022 2 [place] [id number] Eliazar Berriosinger [id number] Eliazar Berriosinger 06/06/2022 1 [place] [place] Eliazar Quispe [id number] Eliazar Berriosinger 06/06/2022 2 [place] [id number] Eliazar Berriosinger [id number] Eliazar Quispe Notes Date Note Type [...] Crandall NP [address] [place], [address], [place] - [facility] 06/06/2022 19:16:09
--- OUTSIDE RECORDS SUMMARY | 2024-06-06 08:42 | XMS_ITS | Clinical Summary ---
Author Organization [facility] Address [address] [place] [address] Phone Care Team Providers Care Veterinary Surgery Technician Name Role Phone Physician, No Pcp Primary Care Provider Unavaila ble Allergies Active Allergy Reactions Criticality Noted Date Comments Metoprolol Palpitations,Dizzine ss High 03/01/2020 Severe dizziness Sulfa (Sulfonamide Antibiotics) Unknown Medium 05/07/2020 Childhood rxn Pt states he had sulfa as child and does not remember reaction. Medications amiodarone (PACERONE) 400 mg tablet Take by mouth 1 (one) time each day. Active carvediloL (COREG) 3.125 mg tablet Take by mouth 2 (two) times a day with meals. Active apixaban (ELIQUIS) 2.5 mg tablet Take 2.5 mg by mouth 2 (two) times a day. Active Surgical History Surgery Date Site/Laterality Comments CARDIAC ABLATION Medical History Medical History Date Comments Atrial fibrillation (CMS/HCC) CHF (congestive heart failure) (CMS/HCC) CVA (cerebral vascular accident) (CMS/HCC) Social History Tobacco Use Types Packs/Day Years Used Date Smoking Tobacco: Never Assessed Alcohol Use Standard Drinks/Week Comments Never 0 (1 standard drink = 0.6 oz pur e alcohol) Sex and Gender Information Value Date Recorded Sex Assigned at Not on file Legal Sex Male 11:28 AM EDT Gender Identity Not on file Sexual Orientation Not on file Obstetrics History Last Filed Vital Signs Vital Sign Reading Time Taken Comments Blood Pressure 122/78 10/12/2021 9:00 PM EDT Pulse 94 10/12/2021 9:00 PM EDT Temperature 36.7 ??C (98 ??F) 10/12/2021 12:42 PM EDT Respiratory Rate 10/12/2021 9:00 PM EDT Oxygen Saturation 96% 10/12/2021 9:00 PM EDT Inhaled Oxygen Concentration - - Weight 88.5 kg (195 lb) 10/12/2021 12:42 PM EDT Height 188 cm (6' 2 ) 10/12/2021 12:42 PM EDT Body Mass Index 25.04 10/12/2021 12:42 PM EDT Plan of Treatment Health Maintenance Due Date Last Done Comments DTaP,Tdap,and Td Vaccines (1 - Tdap) 1957 Pneumococcal Vaccine: 50+ Ye ars (1 of 1 - PCV) 1998 Zoster Vaccines (1 of 2) 1998 Cholesterol Screening (Lipid Panel) 10/12/2021 Depression Screening 10/12/2021 Falls Risk Assessment 10/12/2021 Hepatitis C Screening 10/12/2021 Medicare Annual Wellness Visit 10/12/2021 Social Influencers of Health Screening 10/12/2021 RSV Immunization Patients 60 + Years Old (1 - 1-dose 75+ series) 2023 COVID-19 Vaccine ( - 2023-2 5 season) 2023 Influenza Vaccine (#1) 2023 HIB Vaccines Aged Out No longer eligi ble based on patient's age to complete this topic HPV Vaccines Aged Out No longer eligi ble based on patient's age to complete this topic Hepatitis A Vaccines Aged Out No long er eligible based on patient's age to complete this topic Hepatitis B Vaccines Aged Out No long er eligible based on patient's age to complete this topic IPV Vaccines Aged Out No longer eligi ble based on patient's age to complete this topic MMR Vaccines Aged Out No longer eligi ble based on patient's age to complete this topic Meningococcal ACWY Vaccine Aged Out N o longer eligible based on patient's age to complete this topic Meningococcal B Vacine Aged Out No lo nger eligible based on patient's age to complete this topic RSV Immunization Patients Un kirk 20 months Aged Out No longer eligible b ased on patient's age to complete this topic Varicella Vaccines Aged Out No longer eligible based on patient's age to complete this topic Insurance MEDICARE [facility] Care Teams Veterinary Surgery Technician Relationship Specialty Start Date End Date Physician, No Pcp PCP - General 10/12/21
--- OUTSIDE RECORDS SUMMARY | 2024-06-06 08:43 | XMS_ITS | Clinical Summary ---
Author Organization [facility] Address [address] [place] [address] Phone Care Team Providers Care Explosives Worker Name Role Phone Gerda Feldman MD Primary Care Provider Allergies Active Allergy Reactions Criticality Noted Date Comments Atorvastatin 11/05/2021 Metoprolol Other (see comments),Palpitations High 03/01/2020 Severe dizziness Severe dizziness Rosuvastatin 11/05/2021 Sulfa Antibiotics Other (see comments) Medium 05/07/19 21 Pt states he had sulfa as child and does not remember reaction. Medications albuterol HFA (PROVENTIL HFA;VENTOLIN HFA) 108 (90 Base) MCG/ACT inhaler Inhale 2 puffs every 4 (four) hours if needed for wheezing Active Ascorbic Acid (vitamin C) 100 MG tablet Take 100 mg by mouth 1 (one) time each day Active Cholecalciferol (Vitamin D-3) 25 MCG (1000 UT) capsule Take 25 mcg by mouth 1 (one) time each day Active sodium chloride (OCEAN) 0.65 % nasal spray Administer 1 spray into each nostril 4 (four) times a day if needed for congestion Active Flaxseed, Linseed, (Flax Seed Oil) 1000 MG capsule Take 24,000 mg by mouth 1 (one) time each day Active folic acid (FOLVITE) 400 MCG tablet Take 400 mcg by mouth in the morning. 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 Cardiac pacemaker in situ 11/26/20222022 Overview (01/17/2023): T Becky Right bundle branch block an d left anterior fascicular block 05/27/2022 01/17/2023 Palpitations 05/27/2022 01/17/2023 Left bundle branch hemiblock 05/27/2022 Left atrial appendage absent 05/27/2022 Cardiac arrhythmia 05/27/2022 01/17/2023 Acute nontraumatic kidney injury 11/05/2021 Ventricular premature complex 11/05/2021 Resolved Problems Problem Noted Date Diagnosed Date Resolved Date Ankle edema 11/05/2021 11/05/2021 Arthritis 11/05/2021 11/05/2021 Overview (11/05/2021): right foot Dyspnea 11/05/2021 11/05/2021 Insomnia 11/05/2021 11/05/2021 Nerve injury 11/05/2021 11/05/2021 Overview (11/05/2021): Right arm Anxiety 10/29/2021 11/05/2021 Asthma 10/29/2021 11/05/2021 Ischemic cardiomyopathy 10/29/202110/23 Congestive heart failure 10/29/2021 Deep venous thrombosis 10/29/202111/05 Gastroesophageal reflux disease 10/29/2021 11/05/2021 Hypercholesterolemia 10/29/2021 022 Lupus anticoagulant 10/29/2021 11/06/19 22 Impaired glucose tolerance 10/29/2021 0 11/05/2021 Paroxysmal atrial fibrillation 10/29/2021 11/05/2021 Atrial flutter 02/03/2021 11/05/2021 Overview (11/05/2021): Added automatically from request for surgery [id number] Non-traumatic tendon rupture 01/24/2020 11/05/2021 Overview (11/05/2021): Alejandra young History of cardioversion 01/15/2020 Stroke 04/25/2018 11/05/2021 Immunizations Name Administration Dates Next Due Influenza, Unspecified 01/28/2021,2019,02/10/2019,03/22/2018 ,02/19/2017,05/09/2012 Pfizer SARS-COV-2 08/07/2021,01/28/2021,07/28/19 21,07/06/2020 Pneumococcal Conjugate 13-Valent 03/22/2018 Pneumococcal Polysaccharide 04/16/2019 Shingrix 04/16/2019,02/10/2019 Td, Unspecified 02/02/2018 Tdap 12/23/2006 Family History Medical History Relation Comments Hypertension Father Cancer Father's Brother Colon Cancer Cancer Mother Skin Cancer Cancer Mother's Brother Colon Relation Status Comments Father Father's Brother Mother Mother's Brother Social History Tobacco Use Types Packs/Day Years Used Date Smoking Tobacco: Former Cigarettes Smokeless Tobacco: Never Tobacco Cessation:Counseling Given: Not Answered Alcohol Use Standard Drinks/Week Comments Never 0 (1 standard drink = 0.6 oz pur e alcohol) Sex and Gender Information Value Date Recorded Sex Assigned at Not on file Legal Sex Male 8:26 AM EDT Gender Identity Not on file Sexual Orientation Not on file Last Filed Vital Signs Vital Sign Reading Time Taken Comments Blood Pressure 127/66 01/17/2023 3:53 PM EDT Pulse 66 01/17/2023 3:53 PM EDT Temperature - - Respiratory Rate - - Oxygen Saturation 98% 01/17/2023 3:53 PM EDT Inhaled Oxygen Concentration - - Weight 86.8 kg (191 lb 6.4 oz) 01/17/2023 3:53 P M EDT Height - - Body Mass Index - - Plan of Treatment Health Maintenance Due Date Last Done Comments Influenza Vaccine (#1) 2023 , 01/07/2020, 02/10/2019, Additional history exists Pneumococcal Vaccine: 65+ Years Completed 04/16/2019, 03/22/2018 Hepatitis B Vaccine Aged Out No longe r eligible based on patient's age to complete this topic Insurance MEDICARE [facility] MEDICARE [facility] Care Teams Explosives Worker Relationship Specialty Start Date End Date Gerda Feldman MD [facility] [place] [address] [place], [place] PCP - General Internal Medicine 10/21/21
== END 2024-06-06 08:45 | disposition home or self-care (01) ==
PROVIDERS: PCP Internal Medicine; Visit Provider Internal Medicine
DX: Z98.890 Other specified postprocedural states (principal); I42.9 Cardiomyopathy, unspecified; I25.10 Atherosclerotic heart disease of native coronary artery without angina pectoris; I48.0 Paroxysmal atrial fibrillation; I49.3 Ventricular premature depolarization; Z95.0 Presence of cardiac pacemaker; N18.9 Chronic kidney disease, unspecified
CPT/HCPCS: 93010; 99214; G2211

== ENCOUNTER → 2024-06-06 08:14 | Outpatient (BNVA) | payer MEDICARE, SELFPAY | PROVIDERS: PCP Internal Medicine; Visit Provider Internal Medicine | DX: I42.9 Cardiomyopathy, unspecified (principal); I25.10 Atherosclerotic heart disease of native coronary artery without angina pectoris; I48.0 Paroxysmal atrial fibrillation; I49.3 Ventricular premature depolarization; N18.9 Chronic kidney disease, unspecified; Z95.0 Presence of cardiac pacemaker; Z98.890 Other specified postprocedural states | CPT/HCPCS: 93005; 99212 ==

== ENCOUNTER 2024-06-13 15:03 | Outpatient (REF) | payer MEDICARE, SELFPAY ==
--- OUTSIDE RECORDS SUMMARY | 2024-06-13 15:11 | XMS_ITS | Encounter Summary ---
Author Organization [facility] Address [address] [place] [address] Care Team Providers Care Planning Intern Name Role Phone Gerda Feldman MD Primary Care Provider Jaylen Amin MD Unavailable [phone] Robert Crockett MD Unavailable [phone] Osmel Huerta MD Unavailable [phone] Wil Deras MD Unavailable Encounter Details Date Type Department Care Team (Late st Contact Info) Description 09/05/2020 Scanned Document [address] [place] [address] Provider, Janett, [address] [place] [address] Social History Tobacco Use Types Packs/Day Years [...] on filedocumented in this encounter Care Teams Planning Intern Relationship Specialty Start Date End Date Gerda Feldman MD [address] [place] [address] [place] [address] PCP - General Internal Medicine 02/05/20 Jaylen Amin MD [address] [address] Supervising Broker Cardiovascular Disease 02/05/20 Robert Crockett MD [address] [address] Physician Cardiac Electrophysiology 03/01/2004/29 Osmel Huerta MD [address] [place] [address] [address] [place] [address] Surgery, General 09/04/20 Wil Deras MD [address] [place] [address] Cardiovascular Disease 04/30/21 documented as of this encounter
--- OUTSIDE RECORDS SUMMARY | 2024-06-13 15:11 | XMS_ITS | Encounter Summary ---
Author Organization [facility] Address [address] [place] [address] Care Team Providers Care Foundry Tender Name Role Phone Gerda Feldman MD Primary Care Provider Jaylen Amin MD Unavailable [phone] Robert Crockett MD Unavailable [phone] Osmel Huerta MD Unavailable [phone] Wil Deras MD Unavailable Encounter Details Date Type Department Care Team (Late st Contact Info) Description 05/06/2020 Prep for Surgery [facility] Heart & [facility] [place] - Electrophysiology [address] [place] [address] [place] [phone] Sophie Gtz, SENIOR CORPORATE STRATEGY MANAGER [address] [address] Social History Tobacco Use Types [...] documented as of this encounter Care Teams Foundry Tender Relationship Specialty Start Date End Date Gerda Feldman MD [address] [place] [address] [facility] [place] [address] PCP - General Internal Medicine 02/05/20 Jaylen Amin MD [address] [address] Distresser Cardiovascular Disease 02/05/20 Robert Crockett MD [address] [address] Physician Cardiac Electrophysiology 03/01/2004/29 Osmel Huerta MD [address] [place] [address] [address] [place] [address] Surgery, General 09/04/20 Wil Deras MD [address] [place] [address] Cardiovascular Disease 04/30/21 documented as of this encounter
--- OUTSIDE RECORDS SUMMARY | 2024-06-13 15:11 | XMS_ITS | Encounter Summary ---
Author Organization [facility] Address [address] [place] [address] Care Team Providers Care Wall Attendant Name Role Phone Gerda Feldman MD Primary Care Provider Jaylen Amin MD Unavailable [phone] Robert Crockett MD Unavailable [phone] Osmel Huerta MD Unavailable [phone] Wil Deras MD Unavailable Encounter Details Date Type Department Care Team (Late st Contact Info) Description 03/11/2021 Telephone [facility] Heart & Vascular [place] - Electrophysiology [address] [place] [address] Wil Deras MD [address] [place] [address] Social History Tobacco Use Types Packs/Day Years [...] on filedocumented in this encounter Care Teams Wall Attendant Relationship Specialty Start Date End Date Po, Gerda Medley MD [address] [place] [address] PCP - General Internal Medicine 02/05/20 Jaylen Amin MD [address] [address] Economics Analyst Cardiovascular Disease 02/05/20 Robert Crockett MD [address] [address] Physician Cardiac Electrophysiology 03/01/2004/29 Osmel Huerta MD [address] [place] [address] Drive [address] [place] [address] Surgery, General 09/04/20 Wil Deras MD [address] [place] [address] Cardiovascular Disease 04/30/21 documented as of this encounter
--- OUTSIDE RECORDS SUMMARY | 2024-06-13 15:11 | XMS_ITS | Encounter Summary ---
Author Organization [facility] Address [address] [place] [address] Care Team Providers Care Women'S Garment Fitter Name Role Phone Gerda Feldman MD Primary Care Provider Jaylen Amin MD Unavailable Robert Crockett MD Unavailable [phone] Osmel Huerta MD Unavailable [phone] Wil Deras MD Unavailable Encounter Details Date Type Department Care Team (Late st Contact Info) Description 02/15/[address] [address] Robert Crockett MD [address] [place] [address] [address] [place] [address] Social History Tobacco [...] documented as of this encounter Care Teams Women'S Garment Fitter Relationship Specialty Start Date End Date Gerda Feldman MD [address] [place] [address] [place] [address] PCP - General Internal Medicine 02/05/20 Jaylen Amin MD [address] [address] Dulite Machine Bluer Cardiovascular Disease 02/05/20 Robert Crcokett MD [address] [address] Physician Cardiac Electrophysiology 03/01/2004/29 Osmel Huerta MD [address] [place] [address] [address] [place] [address] Surgery, General 09/04/20 Wil Deras MD [address] [place] [address] Cardiovascular Disease 04/30/21 documented as of this encounter
--- OUTSIDE RECORDS SUMMARY | 2024-06-13 15:11 | XMS_ITS | Encounter Summary ---
Author Organization [facility] Address [address] [place] [address] Care Team Providers Care Nuclear Operator Name Role Phone Gerda Feldman MD Primary Care Provider Jaylen Amin MD Unavailable [phone] Robert Crockett MD Unavailable [phone] Osmel Huerta MD Unavailable Wil Deras MD Unavailable Encounter Details Date Type Department Care Team (Late st Contact Info) Description 05/22/2020 Scanned Document [address] [place] [address] Provider, Janett, [address] [place] [address] Social History Tobacco Use Types Packs/Day Years [...] on filedocumented in this encounter Care Teams Nuclear Operator Relationship Specialty Start Date End Date Gerda Feldman MD [address] [place] [address] [place] [address] PCP - General Internal Medicine 02/05/20 Jaylen Amin MD [address] [address] Harnessmaker Cardiovascular Disease 02/05/20 Robert Crockett MD [address] [address] Physician Cardiac Electrophysiology 03/01/2004/29 Osmel Huerta MD [address] [place] [address] Drive [address] [place] [address] Surgery, General 09/04/20 Wil Deras MD [address] [place] [address] Cardiovascular Disease 04/30/21 documented as of this encounter
--- OUTSIDE RECORDS SUMMARY | 2024-06-13 15:11 | XMS_ITS | Encounter Summary ---
Author Organization [facility] Address [address] [place] [address] Care Team Providers Care State Game Warden Name Role Phone Gerda Feldman MD Primary Care Provider Jaylen Amin MD Unavailable Robert Crockett MD Unavailable [phone] Osmel Huerta MD Unavailable Wil Deras MD Unavailable Encounter Details Date Type Department Care Team (Late st Contact Info) Description 02/18/2020 Scanned Document [address] [place] [address] Provider, Janett, [address] [place] [address] Social History Tobacco Use Types Packs/Day Years [...] documented as of this encounter Care Teams State Game Warden Relationship Specialty Start Date End Date Gerda Feldman MD [address] [place] [address] [place] [address] PCP - General Internal Medicine 02/05/20 Jaylen Amin MD [address] [address] Strategic Marketing Leader Cardiovascular Disease 02/05/20 Robert Crockett MD [address] [address] Physician Cardiac Electrophysiology 03/01/2004/29 Osmel Huerta MD [address] [place] [address] [address] [place] [address] Surgery, General 09/04/20 Wil Deras MD [address] [place] [address] Cardiovascular Disease 04/30/21 documented as of this encounter
--- OUTSIDE RECORDS SUMMARY | 2024-06-13 15:11 | XMS_ITS | Data Portability ---
Author Organization [facility], 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 Battery longevity 13.2yrs to MEDICAL DETAIL REPRESENTATIVE. Device mode AAIR <=> DDDR 60-130 bpm. Lead parameters are stable. DIRECTOR OF CORPORATE SPONSORSHIPS <0.1%, AP 93.1%. No atrial or ventricular [...] were made. He will refer to his choke reamer for any blood pressure control guidelines. He [...] on September 26 and occurred in the health clinician hours. The other 2 episodes were in [...] a stress test. He is seeing his choke reamer on December 02. The patient will bring this up with his choke reamer and I will send him a copy [...] I will discuss this with the patient's choke reamer to see if they can arrange for this where Mr. Quispe lives in [place]. We will await PET scan and genetics. I will see him back in the office in 6 months. I left a message on the patient's cell phone after our visit to discuss the above. I also left a message with his choke reamer asking him to call me to discuss [...] hour. His monitor is followed by his choke reamer. He continues to have frequent PVCs as [...] will obtain his recent echo from his choke reamer office. His main concern is fatigue, anemia and chronic kidney disease. He has follow-up with nephrology next week. I have asked him to call us if he develops any palpitations. He has close follow-up with his choke reamer. I would like to see him back [...] he will be following up with his choke reamer regarding alternative procedures, possibly a Watchman to [...] For Internal Use Only, Do Not Delete/merge, [id number] 06/01/2024 16:16:49 electroca rdiogram 2023 024 In-House Results, For Internal Use Only, Do Not Delete/merge, [id number] 12/05/2023 16:24:44 electroca rdiogram 2023 024 In-House Results, For Internal Use Only, Do Not Delete/merge, [id number] 06/06/2023 16:39:34 electroca rdiogram 2022 023 In-House Results, For Internal Use Only, Do Not Delete/merge, [id number] 11/26/2022 16:14:21 electroca rdiogram 2022 023 In-House Results, For Internal Use Only, Do Not Delete/merge, [id number] 05/27/2022 15:29:01 Medication Orders None recorded. Patient TargetsNo targets recorded. Patient Instructions Encounter Date Encounter Id Patient Instructions Last Modified By Organization Details Last Modified Time 05/27/2022 [id number] - From an electrophysiology perspective, we feel it is low risk for you to discontinue taking Coumadin - We are STOPPING your Amiodarone - Please refer to your choke reamer's recommendations regarding your blood pressure recommendations - Follow up in 6 months for routine follow up Not available 05/27/2022 14:36:02 I spent a total of {{# of minutes 25#}} minutes on the same date of service providing cgnh-ab-outg and fgz-bvzf-bj-face patient care. Not available 05/27/2022 14:28:45 11/26/2022 [id number] I spent a total of {{# of minutes 35#}} minutes on the same date of service providing dvgg-bz-dhgg and yab-dxoc-na-face patient care. Not available 11/26/2022 15:59:24 06/06/2023 [id number] I spent a total of {{# of minutes 35#}} minutes on the same date of service providing dwuy-jd-ucgy and gtn-jchz-ql-face patient care. Not available 06/06/2023 16:54:15 12/05/2023 [id number] I spent a total of {{# of minutes 35#}} minutes on the same date of service providing ilci-ir-iwlv and bsx-djmo-hw-face patient care. Not available 12/05/2023 16:23:56 06/01/2024 [id number] I spent a total of {{# of minutes 35#}} minutes on the same date of service providing oylr-ge-dnbi and div-fuds-si-face patient care. Not available 06/01/2024 16:16:54 Reason for Referral None Reported. Results Created Date Observation Date Name Description Value Unit Range Abnormal Flag Note LastModifiedBy Organization Detail LastModifiedTime 05/27/1905/27/2022 j carlos beckmangr am No observ ation record ed. In-House Results For Internal Use Only, Do Not Delete/merge, [id number] 05/27/2022 15:25:52 05/27/19 elect rocar diogr am No observ ation record ed. [email or web address] Not Available 05/2022 14:03:56 05/28/19 23 05/27/2022 elect rocar diogr am No observ ation record ed. [email or web address] In-House Results For Internal Use Only, Do Not Delete/merge, [id number] 05/28/2022 11:23:34 05/28/19 23 05/27/2022 ignacio regalado ion (PROC ) No observ ation record ed. [email or web address] Not Available 2022 11:27:20 11/27/19 23 11/26/2022 elect rocar diogr am No observ ation record ed. YOUSUF In-House Results For Internal Use Only, Do Not Delete/merge, [id number] 11/26/2022 16:14:20 11/27/19 23 elect rocar diogr am No observ ation record ed. [email or web address] Not Available 10/2022 06:56:31 12/06/19 23 11/26/2022 devic e check (PROC ) No observ ation record ed. [email or web address] Not Available 2022 23:01:26 06/02/19 24 12/16/2022 trans -thor acic echoc ardio gram (TTE) (PROC ) No observ ation record ed. [facility] [address] [place] [address], [place], [address], 06/02/2023 13:58:09 06/06/19 24 06/06/2023 elect rocar diogr am No observ ation record ed. YOUSUF In-House Results For Internal Use Only, Do Not Delete/merge, [id number] 06/06/2023 16:39:33 06/06/19 24 elect rocar diogr am No observ ation record ed. Not Available 2023 16:43:35 06/19/19 24 06/08/2023 devic e check (PROC ) No observ ation record ed. [email or web address] Not Available 2023 11:37:54 06/22/19 24 06/22/2023 PET, heart No observ ation record ed. [email or web address] [facility] [address], [place], [address], 06/23/2023 09:16:18 12/05/19 24 12/05/2023 elect rocar diogr am No observ ation record ed. YOUSUF In-House Results For Internal Use Only, Do Not Delete/merge, [id number] 12/05/2023 16:25:03 12/05/19 24 elect rocar diogr am No observ ation record ed. Not Available 2023 16:25:04 12/06/19 24 11/29/2023 US, echoc ardio gram No observ ation record ed. [email or web address] Not Available 10:41:26 12/11/19 24 12/05/2023 devic [...] Available 2024 15:46:47 06/01/19 25 06/01/2024 elect tra waite am No observ ation record ed. YOUSUF In-House Results For Internal Use Only, Do Not Delete/merge, [id number] 06/01/2024 16:16:01 06/01/19 elect rocar diogr am No observ ation record ed. [email or web address] Not Available 06/04 08:55:40 06/06/19 25 04/13/2024 US, echoc ardio gram, trans esoph ageal No observ ation record ed. [facility] [address] [place], [place], [address], 06/06/2024 09:41:52 06/11/19 25 06/01/2024 devic e check (PROC ) No observ ation record ed. [email or web address] Not Available 2024 16:11:44 Result Notes None recorded. Problems Name Problem SNOMED Code Status Onset Date Resolution Date Notes Provider Name and Address Organization Details Recorded Time Atrial flutter 8368426 Active ALEJANDRO [place] - [facility] 2 14:43:55 Persisten t atrial fibrillat ion 206394487 Active Janeyovani RodarteScipio null, [place] [facility] 2 14:44:26 Rupture of tendon 016058224 Active Nontrauma tic L ankle Jane Monidge null, [place] [facility] 2 14:45:26 History of cardiover vita 300931424091 08 Active Janeyovani RodarteShukri null, [facility] 2 14:45:57 Cerebrova scular accident 575543694 Active Jane Shukri null, [place] - [facility] 2 14:46:07 Dyspnea 405264140 Active Jane Shukri null, [facility] 2 14:46:19 Insomnia 169931855 Active Jane Scipio null, [facility] 2 14:46:34 Nerve injury 43300043 Active Right Arm Jane Rodartedridge null, [facility] 2 14:47:21 Arthritis 9037826 Active Right Foot Jane Shukri null, [facility] 2 14:47:56 Cardiac arrhythmi a 036903882 Active 2022 Arden Cosme null, [facility] 3 13:53:39 Palpitati ons 19208453 Active 2022 ARCHANA CARIAS [address], [place], [address], [place] - [facility] 3 14:57:10 Paroxysma l atrial fibrillat ion 217557046 Active 2022 ARCHANA CARIAS [address], [place], [address], [place] - [facility] 3 14:59:34 Ventricul ar premature beats 03027061 Active 2022 ARCHANA CARIAS [address], [place], [address], [place] - [facility] 3 14:59:56 Left atrial appendage absent 851735542 Active 2022 s/p clipping of GABRIEL at time of MV repair, 2021 ARCHANA Cooper [address] [place] [address], [place], [address], [place] - [facility] 4 09:17:42 Left bundle branch hemiblock 6393358 Active [address] [place] [address], [place], [address], [place] - [facility] 3 15:03:55 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 XT MRI DEVICE SERIAL NUMBER [id number] DEVICE TYPE Pacemaker DATE OF IMPLANT 28-Nov-19 22 pt transferr ed into 's remote clinic from [place] 12/13/2023 Phoebe Mccracken RN [address] [place] [address], [place], [address], [place] - [facility] 4 12:20:39 Nonsustai marcelo ventricul ar tachycard ia 679731548 Active [address] [place] [address], [place], [address], [place] - [facility] 4 12:44:39 Problem Notes None recorded. Procedures Surgical History Date Name Laterality Status Provider Name and Address Organization Details Recorded Time 06/01/19 25 In-person Programming of Pacemaker: Dual Chamber CPT 21155,26 completed [address] Cooper [address] [place] [address], [place], [address], [place] - [facility] 06/01/2024 16:12:50 05/14/19 25 insertion of stent into urethra completed Joi loya [facility] 06/01/2024 15:31:08 12/05/19 24 In-person Programming of Pacemaker: Dual Chamber CPT 18017,26 completed ARCHANA Cooper [address] FLOOR, [place], [address], [facility] 12/05/2023 16:20:31 06/06/19 24 In-person Programming of Pacemaker: Dual Chamber CPT 17291,26 completed ARCHANA Cooper [address] FLOOR, [place], [address], [facility] 06/07/2023 12:27:03 11/27/19 23 In-person Programming of Pacemaker: Dual Chamber CPT 76157,26 completed [address] Cooper [address] [place] [address], [place], [address], [facility] 11/26/2022 16:11:31 05/27/19 23 In-person Programming of Pacemaker: Dual Chamber CPT 05323,26 completed ARCHANA CARIAS [address] [place] [address], [place], [address], [facility] 05/27/2022 15:17:02 04/25/19 23 Hernia repair: Incisional completed Jane Watt [facility] 12/05/2023 15:26:37 02/05/20 22 In-person Programming of Pacemaker: Dual Chamber CPT 85576,26 completed Jordon Orozco MD [address] FLOOR, [place], [address], [facility] 02/04/2022 17:05:28 11/28/19 22 cardiac pacemaker procedure completed Han Mills RN [address] FLOOR, [place], [address], [place] [facility] 02/04/2022 16:16:27 11/13/19 22 Maze procedure completed Han Mills RN [address], [place], [address], ALEJANDRO - [facility] 11/24/2021 13:27:31 11/13/19 22 atrial appendage excision completed Han Mills RN [address], [place], [address], ALEJANDRO - [facility] 11/24/2021 13:27:59 04/25/19 22 Other completed Jane ALLEN [facility] 12/05/2023 15:26:37 04/25/19 22 Pacemaker completed Janeyovani ALLEN Johann [facility] 12/05/2023 15:26:37 03/16/20 21 catheter ablation of arrhythmogenic focus completed Janeyovani ALLEN Johann [facility] 09/23/2021 14:50:10 05/07/19 21 catheter ablation of arrhythmogenic focus completed Jane Wills [facility] 09/23/2021 14:49:31 05/07/19 21 catheter ablation of arrhythmogenic focus completed Janeyovani ALLEN [facility] 09/23/2021 14:49:45 04/25/19 21 Hernia repair: Inguinal completed Janeyovani Wills [facility] 12/05/2023 15:26:37 04/25/19 19 Cataract removal / Lens implant completed Janeyovani Wills [facility] 12/05/2023 15:26:37 04/25/19 13 operative procedure on cartilage completed Janeyovani Wills [facility] 09/23/2021 14:51:05 04/25/19 13 Shoulder joint surgery completed Jane Wills [facility] 09/23/2021 14:51:34 04/25/19 13 Shoulder repair completed Jane Wills [facility] 12/05/2023 15:26:37 04/25/19 02 LASIK completed Janeyovani Wills [facility] 12/05/2023 15:26:37 Tonsillectomy completed Janeyovani ALLEN [facility] 09/23/2021 14:52:05 repair of mitral valve completed Han Mills, RN [address] [facility],[address], [place], [address], [place] - [facility] 11/24/2021 13:31:59 Imaging Results Imaging Date Name Status LastModified by Organization Details LastModified Time 05/27/2022 electrocardiogram completed In-Hous e Results For Internal Use Only, Do Not Delete/merge, [id number] 05/27/2022 15:25:52 05/27/2022 electrocardiogram completed Infor mation not available 05/27/2022 14:03:56 05/27/2022 electrocardiogram completed In-Hous e Results For Internal Use Only, Do Not Delete/merge, [id number] 05/28/2022 11:23:34 05/27/2022 pacemaker interrogation (PROC) completed [email or web address] Information not available 05/28/2022 11:27:20 11/26/2022 electrocardiogram completed YOUSUF In-Hous e Results For Internal Use Only, Do Not Delete/merge, [id number] 11/26/2022 16:14:20 11/26/2022 electrocardiogram completed Infor mation not available 11/29/2022 06:56:31 11/26/2022 device check (PROC) completed [email or web address] Infor mation not available 12/05/2022 23:01:26 12/16/2022 trans-thoracic echocardiogram (TTE) (PROC) completed [address] [facility] [address] [place] [address], [address], 06/02/2023 13:58:09 06/06/2023 electrocardiogram completed YOUSUF In-Hous e Results For Internal Use Only, Do Not Delete/merge, [id number] 06/06/2023 16:39:33 06/06/2023 [facility]ogram [email or web address] In[facility] not available 06/06/2023 16:43:35 06/08/2023 device check (PROC) completed [email or web address] Infor mation not available 06/19/2023 11:37:54 06/22/2023 PET, heart completed [email or web address] [facility] [address] [place] [address] [address] [place], [place], [address], 06/23/2023 09:16:18 12/05/2023 electrocardiogram completed YOUSUF In-Hous e Results For Internal Use Only, Do Not Delete/merge, [id number] 12/05/2023 16:25:03 12/05/2023 electrocardiogram completed Informa tion not available 12/05/2023 16:25:04 11/29/2023 US, echocardiogram completed [email or web address] Inf ormation not available 12/06/2023 10:41:26 12/05/2023 [...] For Internal Use Only, Do Not Delete/merge, [id number] 06/01/2024 16:16:01 06/01/2024 electrocardiogram completed [email or web address] Informa tion not available 06/04/2024 08:55:40 04/13/2024 US, echocardiogram, transesophageal completed [facility] [address] [place] [address] [address] [place], [place], [address], 06/06/2024 09:41:52 06/01/2024 device check (PROC) completed [email or web address] Infor mation not available 06/11/2024 16:11:44 Procedure Notes None recorded. Medical Equipment None Reported. Allergies Allergen ID Allergen Name Allergen Category Reaction Reaction Severity Criticality Documentation Date Start Date Code Code System Note Provider Name and Address Organization Details Recorded Time 616877 metoprolo l Not available dizziness palpitati ons severe Not available Not available 09/23/2021 6918 RxNorm Jane guajardo, [facility] 2 14:56:20 216219 Substance with sulfonami de structure and antibacte rial mechanism of action (substanc e) medicatio n Not available Not available Not available 09/23/2021 98048 8003 SNOMED Unsur e Child moreland react ion Jane Shukri guajardo, [facility] 2 14:57:02 152835 gabapenti n medicatio n other moderate Not available 02/04/2022 28035 RxNorm Beni ce & gate Han Mills RN [address], [place], [address], [facility] 2 16:11:28 754272 Product containin g 3-hydroxy -3-methyl glutaryl- coenzyme A reductase inhibitor (product) medicatio n muscle cramps severe Not available 02/04/2022 44773 009 SNOMED Han Mills RN [address], [place], [address], [facility] 2 16:12:03 352446 amoxicill in medicatio n rash Not available Not available 11/26/2022 723 RxNorm David Evelyn guajardo, [facility] 3 15:16:47 Medications Name [...] BY MOUTH EVERY DAY DIRECTED BY [facility] 11/26 completed Not Available Not Available [...] Updated DateTime 3 187.96 cm 23.6 kg/m2 07344 g 16 /min 98 % 98 % 67 /min 108 mm[Hg] 70 mm[Hg] Arden Cosme [facility] 3 13:53:30 Date Recorded Body height Body mass index (BMI) Body weight Systolic blood pressure Diastolic blood pressure Provider Name and Address Organization Details Last Updated DateTime 11/26/2022 187.96 cm 23.1 kg/m2 78023.63 g 112 mm[Hg] 64 mm[Hg] David Rivas [facility] 3 15:22:35 Date Recorded Body height Body mass index (BMI) Body weight Respiratory rate Heart rate Oxygen saturation Oxygen saturation in Arterial blood by Pulse oximetry Systolic blood pressure Diastolic blood pressure Provider Name and Address Organization Details Last Updated DateTime 4 187.96 cm 23.1 kg/m2 11587.6 3 g 16 /min 62 /min 99 % 99 % 110 mm[Hg] 62 mm[Hg] Lona Arellano [facility] 4 15:20:27 Date Recorded Body height Body mass index (BMI) Body weight Respiratory rate Body temperature Oxygen saturation Oxygen saturation in Arterial blood by Pulse oximetry Heart rate Systolic blood pressure Diastolic blood pressure Provider Name and Address Organization Details Last Updated DateTime 4 187.96 cm 24.4 kg/m2 09854.5 5 g 16 /min 99.1 [degF] 99 % 99 % 55 /min 126 mm[Hg] 70 mm[Hg] Jane Watt [facility] 4 15:37:28 Date Recorded Body height Body mass index (BMI) Body weight Respiratory rate Heart rate Oxygen saturation Oxygen saturation in Arterial blood by Pulse oximetry Systolic blood pressure Diastolic blood pressure Provider Name and Address Organization Details Last Updated DateTime 5 187.96 cm 25 kg/m2 53295.5 1 g 16 /min 74 /min 98 % 98 % 118 mm[Hg] 68 mm[Hg] Joi [email or web address] [facility] 15:34:54 Social History Question Answer Notes LastModified by Organizat ion Details LastModified Time Tobacco Smoking Status Former Smoker quit greater than 40 years Annette Cuellar RN [address] [facility],[address], [place], [address], [facility] 09/28/2021 13:21:29 Do You Have An Advance Directive? Yes [email or web address] Information not available 06/06/2023 What Is Your Level Of Alcohol Consumption? Occasional Information not available 11/26/2022 How Many Times Per Week Do You Consume Alcohol? Less Than 1 Time Per Week Information not available 06/06/2023 Is Blood Transfusion Acceptable In An Emergency? Yes [email or web address] Information not available 06/06/2023 What Is Your Level Of Caffeine Consumption? Moderate 1-2 Cups Of Coffee Information not available 06/06/2023 What Type Of Diet Are You Following? CARDIAC Information not available 09/28/2021 When Did You Quit Smoking? 16+yearssincel astcigarette Information not available 06/06/2023 Do You Have A Border Measurer (loved One Involved In Your Care)? No Information not available 11/26/2022 Do You Feel Safe At Home? Yes Information not available 09/28/2021 Over The Last 3 Months, Have You Struggled With Housing? No [email or web address] Information not available 12/05/2023 Over The Last 3 Months, Have You Struggled With Access To Food? No [email or web address] Information not available 12/05/2023 Over The Last 3 Months, Have You Struggled With Utilities? No [email or web address] Information not available 12/05/2023 Over The Last 3 Months, Have You Struggled With Transportation? No [email or web address] Information not available 12/05/2023 Over The Last 3 Months, Have You [place] Unsafe In Your Relationship? No [email or web address] Information not available 12/05/2023 What Was The Date Of Your Most Recent Tobacco Screening? 06/01/2024 [email or web address] Information not available 06/01/2024 How Many Children Do You Have? 2 Information not available 09/28/2021 Do You Use Any Illicit Or Recreational Drugs? No [email or web address] Information not available 06/06/2023 Has Tobacco Cessation Counseling Been Provided? No [email or web address] Information not available 12/05/2023 How Many Years Have You Smoked Tobacco? 15 Information not available 06/06/2023 Do You Or Have You Ever Used Any Other Forms Of Tobacco Or Nicotine? No Information not available 06/06/2023 Sex: Male Functional Status Question Answer Note LastModified by Organizat ion Details LastModified Time What is your exercise level? Occasional [email or web address] Information not available 06/06/2023 Mental Status None recorded. Family History Relationship Description Onset Age of this Age Resolved Age Notes LastModified by Organization Details LastModified Time Mother Dementia 97 [email or web address] Not availa ble 09/23/2021 14:55:32 Father Family history of stroke 87 [email or web address] Not available 04/2021 14:55:47 Notes:11/26/22 [facility] Medical [...] SNOMED-CT Code Diagnosis ICD10 Code Diagnosis Note [id number] Devorah Pan APRN [facility] [address] [place] [address] 09/28/2021 12:47:43 09/28/2021 14:08:29 Cardiac arrhythmia 542652873 I49.9 Paroxysmal atrial fibrillation 009953162 I48.0 Cardiomyopathy 75399308 I42.9 [id number] Jordon Orozco MD [facility] [address] [place] [address] 02/04/2022 15:47:13 02/04/2022 17:17:51 Palpitations 71896120 R00.2 [id number] ARCHANA CARIAS [facility] [address] [place] [address] 05/27/2022 13:34:44 05/27/2022 14:36:21 Cardiac arrhythmia 536180441 I49.9 Palpitations 41650505 R0 0.2 History of radiofrequency ablation operation for arrhythmia 938646590 Z98.890 Paroxysmal atrial fibrillation 930809753 I48.0 Ventricula r premature beats 09262037 I49.3 History of maze procedure for atrial fibrillation 352147602 Z98.890 History of repair of mitral valve 408833166 Z98.890 Left atria l appendage absent 014137185 Q20.8 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 97046884 I44.4 Cardiomyopathy 80886141 I42.9 [id number] ARCHANA Cooper Cardiac EP TEMP [place] [address] [address] 11/26/2022 14:57:35 11/26/2022 16:03:00 Cardiac arrhythmia 866840480 I49.9 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 79266822 I44.4 Persistent atrial fibrillation 661774324 I48.19 Cardiac pa cemaker in situ 210944736 Z95.0 [id number] Angelita Coulis, PA Cardiac EP [facility] [place] [facility] [place] [address] 06/06/2023 14:43:25 06/06/2023 16:06:44 Cardiac arrhythmia 270933916 I49.9 Atrial flutter 3158780 I 48.92 Cardiac pa cemaker in situ 679850662 Z95.0 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 25401308 I44.4 Nonsustain ed monomorphic ventricular tachycardia 7169242351 I47.29 [id number] Angelita Chambers PA Cardiac EP TEM[facility] [place] [facility] [place] [address] 12/05/2023 15:13:26 12/05/2023 16:18:04 Cardiac arrhythmia 406516431 I49.9 Atrial flutter 1991517 I 48.92 Cardiac pa cemaker in situ 098710562 Z95.0 Nonsustain ed ventricular tachycardia 150621537 I47.20 [id number] ARCHANA Cooper Cardiac EP TEMP [place] [facility] [place] [address] 06/01/2024 15:17:26 06/04/2024 11:25:01 Cardiac arrhythmia 286093253 I49.9 Cardiac pa cemaker in situ 599368939 Z95.0 Atrial flutter 9362030 I 48.92 Left atria l appendage absent 271627419 Q20.8 Health Concerns Section Related Observation LastModified by Organization Detai ls LastModified Time None Recorded Concern Status LastModified by Organization Details LastModified Time None Recorded Advance Directives Directive Y: Payers Encounter Date Sequence Insurance Name Policy Number Policy Shelby Covered Member ID Shelby Member ID Guarantor Name 05/27/2022 1 MEDICARE B-CT: NGS Eliazar Mckinney Jose Enrique [id number] Eliazar Jose Enrique 05/27/2022 2 [place] [id number] Eliazar Mckinney Jose Enrique [id number] Eliazar Jose Enrique 11/26/2022 1 MEDICARE B-CT: NGS Eliazar Mckinney Jose Enrique [id number] 24 Eliazar Quispe 11/26/2022 2 [place] [id number] Eliazar Quispe [id number] Eliazar Quispe 06/06/2023 1 MEDICARE B-CT: NGS Eliazar Quispe [id number] 24 Eliazar Quispe 06/06/2023 2 [place] [id number] Eliazar Quispe [id number] Eliazar Quispe 12/05/2023 1 MEDICARE B-CT: NGS Eliazar Quispe [id number] 24 Eliazar Quispe 12/05/2023 2 [place] [id number] Eliazar Quispe [id number] Eliazar Quispe 06/01/2024 1 MEDICARE B-CT: NGS Eliazar Quispe [id number] 24 Eliazar Quispe 06/01/2024 2 [place] [id number] Eliazar Quispe [id number] Eliazar Quispe Notes Date Note Type [...] excellent health. 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 He was referred to Dr. White at [facility]. As far as I can tell, [...] that time.More recently, he was admitted to [facility] on 01/18/20 with increasing shortness [...] that admission, he had an echocardiogram at [facility] done on 01/16/20. 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 He has a son Han who lives in [place].I would note that one of the possibilities [...] distribution.His preadmission lab studies were drawn at [facility]. His vitamin B12 level [...] also showed 2500 PACs. We reviewed his ShaveLogic ari which showed episodes of possible A. [...] any cardiac complaints. He was using his Yotpoa ari routinely which was showing sinus rhythm. A Holter monitor done prior to our visit showed a significant decline in his PVC burden and PAC burden. We did not make any changes to his medication. I asked that he follow-up with his choke reamer regarding the mitral regurgitation noted on his echocardiogram.He did have a hernia repair shortly after that visit.However in December 2020 he was found to have atrial flutter on his Agilencea ari which was also confirmed on an EKG.He was brought to the EP lab on March 16, 2021 by and underwent a successful ablation of mitral valve flutter with both epicardial and endocardial ablation.He was last seen in the office at [facility] in April 2021. He had [...] We asked him to follow-up with his choke reamer regarding need for further work-up. His EKG was unchanged compared to prior tracings and his cardiac examination was within normal limits with the exception of occasional ectopic beats. We deferred a repeat echocardiogram to his choke reamer given the findings of mitral regurgitation on his last echocardiogram. He remained anticoagulated with Eliquis for his OXV7RZ2-RUIj score of 4. We discussed the importance [...] burden was 1.57%.He had an echocardiogram on 3/1. His EF was calculated to be 44% and there was a mildly decreased RV systolic function. His left atrium was severely dilated measuring 4.4 cm? ? ?. There is moderate MR.Eliazar returns to the office today in routine [...] like getting out of bed. Despite his choke reamer increasing his carvedilol dose he has not [...] the procedure. We will defer to his choke reamer for longitudinal monitoring of his mitral regurgitation. [...] amiodarone. I spoke to Dr. Vela his choke reamer 10/01/2021. It was felt that he might [...] he is going to consult with a producer arborist manager. Overall again however he feels significantly improved and is getting back to himself. I would note that I did have an echocardiogram today at [facility] we will be getting the results. He [...] of atrial fibrillation. He felt that if Elizaar continued to be AF/AFL free by his next office visit, he could come off Amiodarone and it would be low risk for him to come off Coumadin as well. He returns to the office feeling in reasonably good condition. He has remained very active. He will be seeing his choke reamer next week. He asked that we verify [...] is on Coumadin for anticoagulation. ARCHANA CARIAS [address] [place], [place] [address]liz,[address], [place], [address], [facility], [facility] 05/27/2022 15:28:36 11/26/2022 text/html To review, [...] excellent health. 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 He was referred to Dr. White at [facility]. As far as I can tell, [...] that time.More recently, he was admitted to [facility] on 01/18/20 with increasing shortness [...] that admission, he had an echocardiogram at [facility] done on 01/16/20. 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 He has a son Han who lives in [place].I would note that one of the possibilities [...] distribution.His preadmission lab studies were drawn at [facility]. His vitamin B12 level [...] also showed 2500 PACs. We reviewed his Agilencea ari which showed episodes of possible A. [...] any cardiac complaints. He was using his ShaveLogic ari routinely which was showing sinus rhythm. A Holter monitor done prior to our visit showed a significant decline in his PVC burden and PAC burden. We did not make any changes to his medication. I asked that he follow-up with his choke reamer regarding the mitral regurgitation noted on his echocardiogram.He did have a hernia repair shortly after that visit.However in December 2020 he was found to have atrial flutter on his Agilencea ari which was also confirmed on an EKG.He was brought to the EP lab on March 16, [address] Deras and underwent a successful ablation of mitral valve flutter with both epicardial and endocardial ablation. He was seen at [facility] in April 2021. He denied any recurrence of arrhythmias or palpitations. He was using his cardia monitor daily which did not show any atrial fibrillation or rapid heartbeats. He reported occasional chest discomfort and we asked him to follow-up with his choke reamer. We also felt he should have another [...] remote monitoring is being followed by his choke reamer. ARCHANA Cooper [address] [facility],[address], [place], [address], [facility], [facility] 11/26/2022 16:26:06 06/06/2023 text/html To review, [...] excellent health. 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 He was referred to Dr. White at [facility]. As far as I can tell, [...] that time.More recently, he was admitted to [facility] on 01/18/20 with increasing shortness [...] that admission, he had an echocardiogram at [facility] done on 01/16/20. 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 He has a son Han who lives in [place].I would note that one of the possibilities [...] distribution.His preadmission lab studies were drawn at [facility]. His vitamin B12 level [...] also showed 2500 PACs. We reviewed his ShaveLogic ari which showed episodes of possible A. [...] any cardiac complaints. He was using his ShaveLogic ari routinely which was showing sinus rhythm. A Holter monitor done prior to our visit showed a significant decline in his PVC burden and PAC burden. We did not make any changes to his medication. I asked that he follow-up with his choke reamer regarding the mitral regurgitation noted on his echocardiogram.He did have a hernia repair shortly after that visit.However in December 2020 he was found to have atrial flutter on his Agilencea ari which was also confirmed on an EKG.He was brought to the EP lab on March 16, [address] Deras and underwent a successful ablation of mitral valve flutter with both epicardial and endocardial ablation. He was seen at [facility] in April 2021. He denied any recurrence of arrhythmias or palpitations. He was using his cardia monitor daily which did not show any atrial fibrillation or rapid heartbeats. He reported occasional chest discomfort and we asked him to follow-up with his choke reamer. We also felt he should have another [...] a Medtronic dual-chamber unit which is an Vardaman XT DR device. The device is programmed [...] and he had a follow-up with his choke reamer. PVC counters showed 75/h. He had an [...] to his discomfort. He is seeing his choke reamer tomorrow. He has a home monitor which is being followed by his choke reamer. ARCHANA Cooper [address] [place] [address],[address], [place], [address], [facility], [facility] 06/08/2023 10:07:34 12/05/2023 text/html To review, [...] excellent health. 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 He was referred to Dr. White at [facility]. As far as I can tell, [...] that time.More recently, he was admitted to [facility] on 01/18/20 with increasing shortness [...] that admission, he had an echocardiogram at [facility] done on 01/16/20. 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 He has a son Han who lives in [place].I would note that one of the possibilities [...] distribution.His preadmission lab studies were drawn at [facility]. His vitamin B12 level [...] also showed 2500 PACs. We reviewed his ShaveLogic ari which showed episodes of possible A. [...] any cardiac complaints. He was using his ShaveLogic ari routinely which was showing sinus rhythm. A Holter monitor done prior to our visit showed a significant decline in his PVC burden and PAC burden. We did not make any changes to his medication. I asked that he follow-up with his choke reamer regarding the mitral regurgitation noted on his echocardiogram.He did have a hernia repair shortly after that visit.However in December 2020 he was found to have atrial flutter on his Agilencea ari which was also confirmed on an EKG.He was brought to the EP lab on March 16, [address] Deras and underwent a successful ablation of mitral valve flutter with both epicardial and endocardial ablation. He was seen at [facility] in April 2021. He denied any recurrence of arrhythmias or palpitations. He was using his cardia monitor daily which did not show any atrial fibrillation or rapid heartbeats. He reported occasional chest discomfort and we asked him to follow-up with his choke reamer. We also felt he should have another [...] and he had a follow-up with his choke reamer. PVC counters showed 75/h. He had an [...] breath, palpitations, near-syncope or syncope. ARCHANA Cooper [address] [place], [place] [address]liz.,[address], [place], [address], [facility], [facility] 12/05/2023 16:24:46 06/01/2024 text/html To review, Mr. [...] excellent health. 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 He was referred to Dr. White at [facility]. As far as I can tell, [...] that time.More recently, he was admitted to [facility] on 01/18/20 with increasing shortness [...] that admission, he had an echocardiogram at [facility] done on 01/16/20. 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 He has a son Han who lives in [place].I would note that one of the possibilities [...] distribution.His preadmission lab studies were drawn at [facility]. His vitamin B12 level [...] also showed 2500 PACs. We reviewed his ShaveLogic ari which showed episodes of possible A. [...] any cardiac complaints. He was using his ShaveLogic ari routinely which was showing sinus rhythm. A Holter monitor done prior to our visit showed a significant decline in his PVC burden and PAC burden. We did not make any changes to his medication. I asked that he follow-up with his choke reamer regarding the mitral regurgitation noted on his echocardiogram.He did have a hernia repair shortly after that visit.However in December 2020 he was found to have atrial flutter on his ShaveLogic ari which was also confirmed on an EKG.He was brought to the EP lab on March 16, [address] Deras and underwent a successful ablation of mitral valve flutter with both epicardial and endocardial ablation. He was seen at [facility] in April 2021. He denied any recurrence of arrhythmias or palpitations. He was using his cardia monitor daily which did not show any atrial fibrillation or rapid heartbeats. He reported occasional chest discomfort and we asked him to follow-up with his choke reamer. We also felt he should have another [...] and he had a follow-up with his choke reamer. PVC counters showed 75/h. He had an [...] disease. He had close follow-up with his producer arborist manager. We noted frequent PVCs on his device [...] We also left a message with his choke reamer to consider a CESILIA to see if the left atrial appendage is completely walled off as he had a resection at the time of his MVR/MAZE. Since that time, he reports having a CESILIA through his choke reamer which apparently showed a leak at the left atrial appendage clipping site. The patient contacted our office for our recommendations. Given his elevated YAO0VN2-RPBj score of 5, I recommended that he restart Eliquis. He declined going back on the medication and understood there is a risk of stroke. We also recommended he see a structural choke reamer to see if he is a candidate for a Watchman procedure depending on the size of the left atrial appendage leak. I offered to send him to a physician in [place] but since he [place] in [place], he wanted to find someone in his area. He comes in today for follow-up. He is feeling well and denies palpitations, chest pain or shortness of breath. He is seeing his choke reamer next month and will be seeing someone regarding the left atrial appendage leak as well. ARCHANA Cooper [address], [place], [address], [facility], [facility] 06/01/2024 16:17:21
--- OUTSIDE RECORDS SUMMARY | 2024-06-13 15:11 | XMS_ITS | Data Portability ---
Author Organization [facility] - [facility], [address] Address [address] [place] [address] Assessment No assessment recorded. Plan of Treatment Reminders Order Date Submit Date Provider Last Modified By Organization Details Last Modified Time Details Appointments None recorded. Lab None recorded. Referral otolaryngol ogist referral - feeling dizzy and vertigo especially waking upm in morning. need further evaluation and treatment. 2022 023 [email or web address] 26 Pratik Rivera MD, [address] [facility], [facility], [place], [address], 3 12:51:32 Procedures None recorded. Surgeries None recorded. Imaging None recorded. Medication Orders meclizine 25 mg tablet 2022 023 [id number], [address], [place], [id number], 19:15:43 Patient TargetsNo targets recorded. 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 Referral fo r Benign paroxysmal positional vertigo [...] Address Organization Details Recorded Time Essential hypertension 48885979 Active 2022 IRIS COUVERTIE R null, PA - [facility] 3 18:23:37 Acute kidney injury 94899901 Active 2022 IRIS COUVERTIE R null, PA - [facility] 3 18:26:17 Insomnia 605499030 Active 2022 IRIS COUVERTIE R null, PA [...] Name and Address Organization Details Recorded Time 140503 Substance with sulfonami de structure and antibacte rial mechanism of action (substanc e) medicatio n Not available Not available Not available 06/06/2022 22035 8003 SNOMED IRIS COUVERTIE R null, PA - [facility] 3 18:21:58 931345 gabapenti n medicatio n dizziness Not available Not available 06/06/2022 74523 RxNorm IRIS COUVERTIE R null, PA - [facility] 3 18:22:14 116991 rosuvasta tin medicatio n edema Not available Not available 06/06/2022 99794 2 RxNorm KRISHNA Muñoz bennett, PA - [...] TABLETS BY MOUTH EVERY DAY DIRECTED BY [facility] 06/06 completed Not Available Not Available [...] Updated DateTime 3 187.96 cm 23.8 kg/m2 99480.5 9 g 100 % 100 % 66 [...] SNOMED-CT Code Diagnosis ICD10 Code Diagnosis Note [id number] [address] [facility] [place] [address] 08/09/2016 14:01:54 08/09/2016 14:52:09 [id number] [address] [facility] [place] [address] 10/08/2019 14:19:37 10/08/2019 15:46:07 [id number] [address] [facility] [place] [address] 06/14/2020 09:23:40 06/14/2020 09:53:11 [id number] [address] [facility] [place] [address] 12/31/2018 10:08:17 12/31/2018 10:53:03 [id number] [address] [facility] [place] [address] 06/08/2016 13:08:05 06/08/2016 14:31:43 [id number] [address] [facility] [place] [address] 01/02/2020 17:09:44 01/02/2020 17:43:56 [id number] [address] [facility] [place] [address] 12/18/2019 15:16:32 12/18/2019 16:26:12 [id number] [address] [facility] [place] [address] 02/19/2016 13:00:02 02/19/2016 13:30:00 [id number] [address] [facility] [place] [address] 02/13/2016 15:03:43 02/13/2016 15:28:04 [id number] [address] [facility] [place] [address] 12/08/2017 08:46:06 12/08/2017 09:50:44 [id number] [address] [facility] [place] [address] 03/16/2020 15:48:34 03/16/2020 18:27:17 [id number] [address] [place] [address] [place] [address] 04/30/2020 13:25:07 04/30/2020 18:52:16 [id number] ARCHANA JAIMES [address] [facility] [place] [address] 06/06/2022 15:33:14 07/27/2022 19:27:19 Left without being seen [id number] 9102 Z53.21 [id number] Leroy Crandall NP [address] [facility] [place] [address] 06/06/2022 17:13:56 06/06/2022 19:17:57 Benign paroxysmal positional vertigo 876369454 H81.10 Health Concerns Section Related Observation LastModified by Organization Detai ls LastModified Time None Recorded Concern Status LastModified by Organization Details LastModified Time None Recorded Advance Directives Directive None Recorded Payers Encounter Date Sequence Insurance Name Policy Number Policy Shelby Covered Member ID Shelby Member ID Guarantor Name 03/16/2020 1 [place] [employer] Eliazar Quispe [id number] Eliazar Quispe 03/16/2020 2 [place] [id number] Eliazar Quispe [id number] Eliazar Quispe 04/30/2020 1 [place] [employer] Eliazar Quispe [id number] Eliazar Berriosinger 04/30/2020 2 [place] [id number] Eliazar Quispe [id number] Eliazar Berriosinger 06/14/2020 1 [place] [employer] Eliazar Berriosinger [id number] Eliazar Berriosinger 06/14/2020 2 [place] [id number] Elizaar Berriosinger [id number] Eliazar Berriosinger 06/06/2022 1 [place] [employer] Eliazar Quispe [id number] Eliazar Berriosinger 06/06/2022 2 [place] [id number] Eliazar Berriosinger [id number] Eliazar Berriosinger 06/06/2022 1 [place] [employer]ATIONAL [employer] Eliazar Quispe [id number] 24 Eliazar Berriosinger 06/06/2022 2 [place] [id number] Eliazar Berriosinger [id number] Eliazar Quispe Notes Date Note Type [...] Crandall NP [address] [place], [address], [place] - [facility] 06/06/2022 19:16:09
--- OUTSIDE RECORDS SUMMARY | 2024-06-13 15:11 | XMS_ITS | Encounter Summary ---
Author Organization [facility] Address [address] [place] [address] Care Team Providers Care Laborer Pullet [employer] Name Role Phone Gerda Feldman MD Primary Care Provider [phone] Jaylen Amin MD Unavailable [phone] Robert Crockett MD Unavailable [phone] Osmel Huerta MD Unavailable [phone] Wil Deras MD Unavailable Reason for Visit * Reason Comments Results Encounter Details Date Type Department Care Team ([facility] st Contact Info) Description 09/01/[address] [address] Robert Crockett MD [address] [place] [address] Results Social History Tobacco Use Types [...] on filedocumented in this encounter Care Teams Laborer [employer]let [employer] Relationship Specialty Start Date End Date Gerda Feldman MD [address] [place] [address] PCP - General Internal Medicine 02/05/20 Jaylen Amin MD [address] [place] [address] Senior Microstrategy Developer Cardiovascular Disease 02/05/20 Robert Crockett MD [address] [place] [address] Physician Cardiac Electrophysiology 03/01/2004/29 Osmel Huerta MD [address] [place] [address] [place] [address] Surgery, General 09/04/20 Wil Deras MD [address] [place] [address] Cardiovascular Disease 04/30/21 documented as of this encounter
--- OUTSIDE RECORDS SUMMARY | 2024-06-13 15:11 | XMS_ITS | Encounter Summary ---
Author Organization [facility] Address [address] [place] [address] Care Team Providers Care Underground Distribution Engineer Name Role Phone Gerda Feldman MD Primary Care Provider Jaylen Amin MD Unavailable [phone] Robert Crockett MD Unavailable [phone] Osmel Huerta MD Unavailable [phone] Wil Deras MD Unavailable Encounter Details Date Type Department Care Team (Late st Contact Info) Description 02/13/2021 Telephone [facility] Heart & Vascular [place] - Electrophysiology [address] [place] [address] Wil Deras MD [address] [place] [address] Social History Tobacco Use Types Packs/Day Years [...] on filedocumented in this encounter Care Teams Underground Distribution Engineer Relationship Specialty Start Date End Date Gerda Feldman MD [address] [place] [address] [place] [address] PCP - General Internal Medicine 02/05/20 Jaylen Amin MD [address] [address] Cripple Worker Cardiovascular Disease 02/05/20 Robert Crockett MD [address] [address] Physician Cardiac Electrophysiology 03/01/2004/29 Osmel Huerta MD [address] [place] [address] [address] [place] [address] Surgery, General 09/04/20 Wil Deras MD [address] [place] [address] Cardiovascular Disease 04/30/21 documented as of this encounter
--- OUTSIDE RECORDS SUMMARY | 2024-06-13 15:11 | XMS_ITS | Encounter Summary ---
Author Organization [facility] Address [address] [place] [address] Care Team Providers Care Ordnance Keeper Name Role Phone Gerda Feldman MD Primary Care Provider [phone] Jaylen Amin MD Unavailable [phone] Osmel Huerta MD Unavailable [phone] Wil Deras MD Unavailable Encounter Details Date Type Department Care Team (Late st Contact Info) Description 07/21/2021 Scanned Document [address] [address] Provider, MD Janett [address] [place] [address] Social History Tobacco Use Types Packs/Day Years [...] on filedocumented in this encounter Care Teams Ordnance Keeper Relationship Specialty Start Date End Date Gerda Feldman MD [address] [place] [address] PCP - General Internal Medicine 02/05/20 Jaylen Amin MD [address] [place] [address] Parking Supervisor Cardiovascular Disease 02/05/20 Osmel Huerta MD [address] [place] [address] [address] [place] [address] Surgery, General 09/04/20 Wil Deras MD [address] [place] [address] Cardiovascular Disease 04/30/21 documented as of this encounter
--- OUTSIDE RECORDS SUMMARY | 2024-06-13 15:11 | XMS_ITS | Encounter Summary ---
Author Organization [facility] Address [address] [place] [address] Care Team Providers Care Test Equipment Mechanic Name Role Phone Gerda Feldman MD Primary Care Provider Jaylen Amin MD Unavailable [phone] Robert Crockett MD Unavailable [phone] Osmel Huerta MD Unavailable [phone] Wil Deras MD Unavailable Encounter Details Date Type Department Care Team (Late st Contact Info) Description 02/15/2020 Scanned Document [address] [place] [address] Provider, Janett, [address] [place] [address] Social History Tobacco Use Types Packs/Day Years [...] documented as of this encounter Care Teams Test Equipment Mechanic Relationship Specialty Start Date End Date Gerda Feldman MD [address] [place] [address] [place] [address] PCP - General Internal Medicine 02/05/20 Jaylen Amin MD [address] [address] Senior Project Leader/Team Lead Cardiovascular Disease 02/05/20 Robert Crockett MD [address] [address] Physician Cardiac Electrophysiology 03/01/2004/29 Osmel Huerta MD [address] [place] [address] Drive [address] [place] [address] Surgery, General 09/04/20 Wil Deras MD [address] [place] [address] Cardiovascular Disease 04/30/21 documented as of this encounter
--- OUTSIDE RECORDS SUMMARY | 2024-06-13 15:11 | XMS_ITS | Encounter Summary ---
Author Organization [facility] Address [address] [place] [address] Care Team Providers Care Summer Sessions Director Name Role Phone Gerda Feldman MD Primary Care Provider Jaylen Amin MD Unavailable Robert Crockett MD Unavailable [phone] Osmel Huerta MD Unavailable [phone] Wil Deras MD Unavailable Reason for Visit * Reason Comments Appointment Encounter Details Date Type Department Care Team (Late st Contact Info) Description 01/08/2021 Telephone [facility] Heart & Vascular [place] - Electrophysiology [address] [place] [address] Wil Deras MD [address] [place], [place] [address] Appointment Social History Tobacco Use Types Packs/Day [...] on filedocumented in this encounter Care Teams Summer Sessions Director Relationship Specialty Start Date End Date Gerda Feldman MD [address] [place] [address] [facility] [place] [address] PCP - General Internal Medicine 02/05/20 Jaylen Amin MD [address] [address] Spot Billing Clerk Cardiovascular Disease 02/05/20 Robert Crockett MD [address] [address] Physician Cardiac Electrophysiology 03/01/2004/29 Osmel Huerta MD 2 [facility] [address] [place] [address] Surgery, General 09/04/20 Wli Deras MD [address] [place] [address] Cardiovascular Disease 04/30/21 documented as of this encounter
--- OUTSIDE RECORDS SUMMARY | 2024-06-13 15:11 | XMS_ITS | Encounter Summary ---
Author Organization [facility] Address [address] [place] [address] Care Team Providers Care Polyethylene Combiner Name Role Phone Gerda Feldman MD Primary Care Provider [phone] Jaylen Amin MD Unavailable [phone] Robert Crockett MD Unavailable [phone] Osmel Huerta MD Unavailable [phone] Wil Deras MD Unavailable Encounter Details Date Type Department Care Team (Late st Contact Info) Description 02/15/2020 Abstract [facility]- [address] [place] [phone] [address] Social History Tobacco Use Types Packs/Day Years [...] documented as of this encounter Care Teams Polyethylene Combiner Relationship Specialty Start Date End Date Gerda Feldman MD [address] [place] [address] [place] [address] PCP - General Internal Medicine 02/05/20 Jaylen Amin MD [address] [address] Nuclear Worker Technician Cardiovascular Disease 02/05/20 Robert Crockett MD [address] [address] Physician Cardiac Electrophysiology 03/01/2004/29 Osmel Huerta MD [address] [place] [address] [address] [place] [address] Surgery, General 09/04/20 Wil Deras MD [address] [place] [address] Cardiovascular Disease 04/30/21 documented as of this encounter
--- OUTSIDE RECORDS SUMMARY | 2024-06-13 15:11 | XMS_ITS | Encounter Summary ---
Author Organization [facility] Address [address] [place] [address] Care Team Providers Care Lab Instructor Name Role Phone Gerda Feldman MD Primary Care Provider Jaylen Amin MD Unavailable [phone] Robert Crockett MD Unavailable [phone] Osmel Huerta MD Unavailable [phone] Wil Deras MD Unavailable Encounter Details Date Type Department Care Team (Late st Contact Info) Description 02/21/2020 Scanned Document [address] [place] [address] Provider, Janett, [address] [place] [address] Social History Tobacco Use Types Packs/Day Years [...] documented as of this encounter Care Teams Lab Instructor Relationship Specialty Start Date End Date Gerda Feldman MD [address] [place] [address] [place] [address] PCP - General Internal Medicine 02/05/20 Jaylen Amin MD [address] [address] Support Group Manager Cardiovascular Disease 02/05/20 Robert Crockett MD [address] [address] Physician Cardiac Electrophysiology 03/01/2004/29 Osmel Huerta MD [address] [place] [address] Drive [address] [place] [address] Surgery, General 09/04/20 Wil Deras MD [address] [place] [address] Cardiovascular Disease 04/30/21 documented as of this encounter
--- OUTSIDE RECORDS SUMMARY | 2024-06-13 15:11 | XMS_ITS | Encounter Summary ---
Author Organization [facility] Address [address] [place] [address] Care Team Providers Care Electronic Prepress Operator Name Role Phone Gerda Feldman MD Primary Care Provider [phone] Jaylen Amin MD Unavailable Robert Crockett MD Unavailable [phone] Osmel Huerta MD Unavailable [phone] Wil Deras MD Unavailable Encounter Details Date Type Department Care Team (Late st Contact Info) Description 02/15/2020 Scanned Document [address] [place] [address] Provider, Janett, [address] [place] [address] Social History Tobacco Use Types Packs/Day Years [...] documented as of this encounter Care Teams Electronic Prepress Operator Relationship Specialty Start Date End Date Gerda Feldman MD [address] [place] [address] [place] [address] PCP - General Internal Medicine 02/05/20 Jaylen Amin MD [address] [address] Perforator Loader Cardiovascular Disease 02/05/20 Robert Crockett MD [address] [address] Physician Cardiac Electrophysiology 03/01/2004/29 Osmel Huerta MD [address] [place] [address] Drive [address] [place] [address] Surgery, General 09/04/20 Wil Deras MD [address] [place] [address] Cardiovascular Disease 04/30/21 documented as of this encounter
--- OUTSIDE RECORDS SUMMARY | 2024-06-13 15:11 | XMS_ITS | Encounter Summary ---
Author Organization [facility] Address [address] [place] [address] Care Team Providers Care Assistant Broker Name Role Phone Gerda Feldman MD Primary Care Provider Jaylen Amin MD Unavailable [phone] Robert Crockett MD Unavailable [phone] sOmel Huerta MD Unavailable [phone] Wil Deras MD Unavailable Reason for Visit * Reason Comments Advice Only Encounter Details Date Type Department Care Team ([facility] st Contact Info) Description 05/16/[address] [address] Robert Crockett MD [address] [place] [address] [address] [place] [address] Advice Only Social History Tobacco [...] was very grateful. 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 Patient stated his army helicopter pilot will not clear him until he sees [...] Patient states he booked his holter at [facility] in [place] since he lives close but it is not scheduled until 06/05. Patient would like to know if he needs to reschedule the 06/06appointment. Please advise. documented in this encounter Plan of Treatment Not on file documented as of this encounter Visit Diagnoses Not on filedocumented in this encounter Care Teams Assistant Broker Relationship Specialty Start Date End Date Po, Gerda Medley MD [address] [place] [address] [place] [address] PCP - General Internal Medicine 02/05/20 Jaylen Amin MD [address] [address] Manager Corporate Strategy Cardiovascular Disease 02/05/20 Robert Crockett MD [address] [address] Physician Cardiac Electrophysiology 03/01/2004/29 Osmel Huerta MD [address] [place] [address] Drive [address] [place] [address] Surgery, General 09/04/20 Wil Deras MD [address] [place] [address] Cardiovascular Disease 04/30/21 documented as of this encounter
--- OUTSIDE RECORDS SUMMARY | 2024-06-13 15:11 | XMS_ITS | Clinical Summary ---
Author Organization [facility] Address [address] [place] [address] Phone Care Team Providers Care Main Galley Scullion Name Role Phone Physician, No Pcp Primary [...] age to complete this topic Insurance MEDICARE [facility] Care Teams Main Galley Scullion Relationship Specialty Start Date End Date Physician, No Pcp PCP - General 10/12/21
--- OUTSIDE RECORDS SUMMARY | 2024-06-13 15:12 | XMS_ITS | Clinical Summary ---
Author Organization [facility] Address [address] [place] [address] Phone Care Team Providers Care Labview Programmer Name Role Phone Gerda Feldman MD Primary Care Provider [phone] Allergies Active Allergy Reactions Criticality Noted Date [...] (11/05/2021): Added automatically from request for surgery [id number] Non-traumatic tendon rupture 01/24/2020 11/05/2021 Overview (11/05/2021): [...] age to complete this topic Insurance MEDICARE [facility] MEDICARE [facility] Care Teams Labview Programmer Relationship Specialty Start Date End Date Gerda Feldman MD [employer] [facility] [place] [address] [place], [place] PCP - General Internal Medicine 10/21/21
--- OUTSIDE RECORDS SUMMARY | 2024-06-13 15:12 | XMS_ITS | Clinical Summary ---
Author Organization [facility] Address [address] [place] [address] Care Team Providers Care Director Call Center Sales Name Role Phone Gerda Feldman MD Primary Care Provider Jyalen Amin MD Unavailable Osmel Huerta MD Unavailable [phone] Wil Deras MD Unavailable Allergies Active [...] Take 400 mcg by mouth daily. Active Protem-3 Fatty Acids (FISH OIL PO) Take by mouth daily. Active Active Problems Problem Noted Date Diagnosed Date Atrial flutter 02/03/2021 Overview (02/03/2021): Added automatically from request for surgery [id number] Persistent atrial fibrillation 05/07/2020 Tendon rupture, nontraumatic [...] 7:40 PM 03/16/2021 6:29 AM Care Teams Director Call Center Sales Relationship Specialty Start Date End Date Po, Gerda Medley MD [address] [place] [address] PCP - General Internal Medicine 02/05/20 Jaylen Amin MD [address] [place] [address] Application Analyst Cardiovascular Disease 02/05/20 Osmel Huerta MD [address] [place] [address] Drive [address] [place] [address] Surgery, General 09/04/20 Wil Deras MD [address] [place] [address] Cardiovascular Disease 04/30/21
[2024-06-13 16:25] LABS: MANUAL DIFF FLAG NO
[2024-06-13 16:38] LABS: Basophils Percent Auto 0.5 % (0-2); Eosinophils Absolute Auto 0.6 X10*3/uL (0.0-0.4); Eosinophils Percent Auto 8.6 % (0-4); Hematocrit 36.9 % (42.0-52.0); Imm Gran Abs Auto 0.02 X10*3/uL (0.00-0.03); Imm Gran Pct Auto 0.3 % (0.0-0.4); Lymphocytes Absolute Auto 1.6 X10*3/uL (1.2-4.9); Lymphocytes Percent Auto 25.5 % (20-40); Mean Corpuscular HGB Conc 32.5 g/dl (31.0-36.0); Mean Corpuscular Hemoglobin 30.2 pg (27.0-33.0); Mean Corpuscular Volume 92.9 fL (80.0-98.0); Mean Platelet Volume 9.5 fL (9.4-12.4); Monocytes Absolute Auto 0.5 X10*3/uL (0.1-1.2); Monocytes Percent Auto 8.4 % (2-11); Neutrophils Absolute Auto 3.6 x10*3/uL (2.0-8.3); Neutrophils Percent Auto 56.7 % (45-73); Platelet Count 247 X10*3/uL (160-400); Red Blood Count 3.97 X10*6/uL (4.60-5.80); Red Cell Distribution Width 13.6 % (11.0-16.0); White Blood Count 6.4 X10*3/uL (4.8-10.8)
[2024-06-13 16:43] LABS: Anion Gap 12 (12-20); Blood Urea Nitrogen 52 mg/dL (9-16); Calcium 9.2 mg/dL (8.4-10.2); Carbon Dioxide 24 mmol/L (22-29); Chloride 111 mmol/L (96-108); Estimated Glomerular Filt Rate 29; Glucose Random 106 mg/dL (60-115); Potassium 4.9 mmol/L (3.3-5.1); Sodium 142 mmol/L (135-145)
== END 2024-06-13 15:04 | disposition home or self-care (01) ==
LOC: HO.HMGCLDS 15:03
PROVIDERS: PCP Internal Medicine; Visit Provider Internal Medicine Hypertension Specialist
DX: N18.4 Chronic kidney disease, stage 4 (severe) (principal)
CPT/HCPCS: 36415; 80048; 85025

== ENCOUNTER 2024-06-19 13:55 | Outpatient (AMB) | payer MEDICARE, SELFPAY ==
[2024-06-19 14:00] VITALS: BP 118/60; PULSE 78; O2SAT 97; BMI 25.7
--- NOTE | 2024-06-19 14:00 | HO.NEPHOV_ITS ---
Vital Signs 06/19/24 14:00 Height 6 ft 2 in Weight 200 lb BMI 25.7 BP 118/60 Blood Pressure Location Rt brachial Position Sitting Pulse 78 Pulse Source Pulse Oximeter Pulse Oximetry (%) 97 Oxygen Delivery Method Room Air Intake Visit Reasons: CKD/ Conf Jewel Waxer Required: No Accompanied by: Self / Same As Patient Allergies gabapentin Allergy (Severe, Verified 06/19/24 14:02) Dizziness atorvastatin Allergy (Intermediate, Verified 06/19/24 14:02) Muscle cramps rosuvastatin Allergy (Intermediate, Verified 06/19/24 14:02) Muscle cramps Sulfa (Sulfonamide Antibiotics) [SULFA(SULFONAMIDE ANTIBIOTICS)] Allergy (Mild, Verified 06/19/24 14:02) RASH metoprolol Adverse Reaction (Severe, Verified 06/19/24 14:02) Chest Pain, sob, dizziness amoxicillin Adverse Reaction (Mild, Verified 06/19/24 14:02) Rash Medication List - Last Reconciled 06/19/24 by Denis Villa MD albuterol sulfate 90 mcg/actuation (ProAir HFA) 2 puffs inhalation Q4H PRN APAP Machine/Device As directed ascorbic acid (vitamin C) 1 g PO BID aspirin 81 mg PO DAILY cholecalciferol (vitamin D3) 25 mcg PO DAILY comp.stocking,thigh,long,large As directed 20-30 mm HG, black ezetimibe (Zetia) 10 mg PO DAILY HPI Comments Details: Osman is a 71-year-old man with a history of paroxysmal atrial fibrillation status post failed ablation. History of DVT/lupus anticoagulant positivity and he is on Eliquis. History of type 2 diabetes mellitus non rheumatic mitral valve di sease. He has underlying CKD with a baseline creatinine somewhere around 2 mg/dL. He is a history of congestive heart failure secondary to severe MVR underwent mitral valve annuloplasty full Maze and left atrial appendage amputation with postop course complicated by mediastinal exploration and evacuation of hematoma. During this process he sustained acute kidney injury with a creatinine peaking at 3.5 mg/dL. During routine imaging he was found to have right-sided hydronephrosis. He is aware of this but no intervention was made at the time. This was back in 2021 He is here for follow-up regarding chronic kidney disease. He has noticed a thin stream during urination. No dysuria urgency increased frequency. No urgency no hesitation. At present he has no shortness of breath no nausea vomiting. No rash no edema. 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 Atherosclerotic cardiovascular disease Normally functioning cardiac pacemaker present Acute kidney injury Generalized anxiety disorder Osteoarthritis of knees, bilateral Obstructive sleep apnea (adult) (pediatric) DVT (deep venous thrombosis) Nasal polyp Asthma Nonrheumatic mitral valve regurgitation Cardiomyopathy Cerebral infarction due to embolism of unspecified cerebral artery PVC (premature ventricular contraction) Anxiety Allergic rhinitis Insomnia Congestive heart failure Gastroesophageal reflux disease Impaired glucose tolerance Congestive heart failure Lupus anticoagulant positive Paroxysmal atrial fibrillation Hypercholesterolemia Surgical History H/O hernia repair Ventral hernia Status post mitral valve repair History of cardiac radiofrequency ablation (~03/16/21) Status post arthroscopy of left knee History of cardioversion (~01/17/20) S/P medial meniscectomy of left knee History of arthroscopy of left knee Hx of repair of right rotator cuff History of tonsillectomy Family History Father HTN (hypertension) CVA (cerebral vascular accident) Mother Skin cancer Maternal Uncle Colon cancer Son No problems noted. Daughter No problems noted. Family/Other Breast cancer Paternal Uncle Colon cancer Social History Housing: House Are you a primary animal daycare provider to a significant other at home: No Do you presently have visiting nurse or other home services: No Alcohol intake: never Patient Tobacco Use Status: Former Tobacco user Tobacco use type: Cigarette Years Smoked: 12 +/- e-Cigarette/Vaping Use: Never Used Second Hand Smoke Exposure: No service: No Current occupational status: retired Cognitive needs: No Hearing needs: No Vision needs: No Physical Exam Vital Signs: Last Vital Signs Pulse 78 06/19/24 14:00 BP 118/60 06/19/24 14:00 Pulse Ox 97 06/19/24 14:00 Oxygen Delivery Method Room Air 06/19/24 14:00 BMI result Body Mass Index 25.7 Const General: comfortable; No acute distress Orientation/consciousness: patient oriented x3 Eyes General: appearance normal, both eyes and all related structures Visual Hannon: normal visual hannon by confrontation Neck Neck: Yes supple and Yes no JVD Resp Effort & Inspection: normal respiratory effort and respiratory effort not decreased Auscultation: rhonchi Cardio Palpation: no palpable S3 and no palpable S4 Heart sounds: no rubs GI Inspection: Yes normal to inspection Palpation (GI): Soft to palpation Percussion: Yes normal to percussion Auscultation: normal bowel sounds General: Yes no CVA tenderness Back/Spine/Pelvis Back: no CVA tenderness Skin General skin exam: no petechiae and no purpura Neuro General: patient oriented x3 and no focal motor deficits Extrem General: No clubbing and No edema Results Reviewed Nephrology Results: Hgb 12.0 g/dl (14.0-18.0) L 06/13/24 WBC 6.4 X10*3/uL (4.8-10.8) 06/13/24 Plt Count 247 X10*3/uL (160-400) 06/13/24 Sodium 142 mmol/L (135-145) 06/13/24 Potassium 4.9 mmol/L (3.3-5.1) 06/13/24 Chloride 111 mmol/L (96-108) H 06/13/24 Carbon Dioxide 24 mmol/L (22-29) 06/13/24 BUN 52 mg/dL (9-16) H 06/13/24 Creatinine 2.19 mg/dL (0.5-1.4) H 06/13/24 Calcium 9.2 mg/dL (8.4-10.2) 06/13/24 Assessment & Plan Assessment & Plan (1) CKD (chronic kidney disease) stage 4, GFR 15-29 ml/min: Code(s): N18.4 - Chronic kidney disease, stage 4 (severe) Category: Medical (2) Hydronephrosis: Comment: 05/14/24 PreOperative Diagnosis: Right hydronephrosis Post Operative Diagnosis: Right proximal ureteric stricture with hydronephrosis Procedure: - cystoscopy, right retrograde - right dilatation of ureteric orifice under fluoroscopy - right ureteroscopy - dilatation of right proximal ureteric stricture - right stent placement Code(s): N13.30 - Unspecified hydronephrosis Category: Medical Qualifiers: Hydronephrosis type: unspecified Qualified Code(s): N13.30 - Unspecified hydronephrosis Plan: Await Nuclear scan Plan Ray has chronic kidney disease with a baseline creatinine of around 2.0 mg/dL. He has sustained acute kidney injury 2 years ago during hospitalization which resolved. The meantime continue to avoid nephrotoxic agents. Optimize blood pressure Keep intake more than output. Stay on low-potassium diet in view of mild hyperkalemia. Increase PO fluid intake Orders: Orders Basic Metabolic Panel 6 Months N18.4 - Chronic kidney disease, stage 4 (severe) Complete Blood Count no Diff 6 Months N18.4 - Chronic kidney disease, stage 4 (severe) Coding Level of Care Code Est Pt Level 4 (29394) Diagnoses CKD (chronic kidney disease) stage 4, GFR 15-29 ml/min N18.4 Hydronephrosis, unspecified hydronephrosis type N13.30 Hydronephrosis type: unspecified
--- OUTSIDE RECORDS SUMMARY | 2024-06-19 17:25 | XMS_ITS | Encounter Summary ---
Author Organization [facility] Address [address] [place] [address] Care Team Providers Care Vp Human Resources Name Role Phone Gerda Feldman MD Primary Care Provider Jaylen Amin MD Unavailable [phone] Robert Crockett MD Unavailable [phone] Osmel Huerta MD Unavailable [phone] Wil Deras MD Unavailable Reason for Visit * Reason Comments Results Encounter Details Date Type Department Care Team ([facility] st Contact Info) Description 09/01/[address] [address] Robert Crockett MD [address] [place] [address] Results Social History Tobacco Use Types [...] on filedocumented in this encounter Care Teams Vp Human Resources Relationship Specialty Start Date End Date Gerda Feldman MD [address] [place] [address] PCP - General Internal Medicine 02/05/20 Jaylen Amin MD [address] [place] [address] Scientific Laboratory Supervisor Cardiovascular Disease 02/05/20 Robert Crockett MD [address] [place] [address] Physician Cardiac Electrophysiology 03/01/2004/29 Osmel Huerta MD [address] [place] [address] [place] [address] Surgery, General 09/04/20 Wil Deras MD [address] [place] [address] Cardiovascular Disease 04/30/21 documented as of this encounter
--- OUTSIDE RECORDS SUMMARY | 2024-06-19 17:25 | XMS_ITS | Data Portability ---
Author Organization [facility] - Misael Bardales s, [id number] Address [address] [place] [address] Assessment No assessment recorded. Plan of Treatment Reminders Order Date Submit Date Provider Last Modified By Organization Details Last Modified Time Details Appointments None recorded. Lab None recorded. Referral otolaryngol ogist referral - feeling dizzy and vertigo especially waking upm in morning. need further evaluation and treatment. 2022 023 [email or web address] 26 Pratik Rivera MD, [address] [facility] Master, [facility] [address], [place], [address], 3 12:51:32 Procedures None recorded. Surgeries None recorded. Imaging None recorded. Medication Orders meclizine 25 mg tablet 2022 023 [id number], [address], [place], [phone], 19:15:43 Patient TargetsNo targets recorded. Patient Instructions Encounter Date Encounter Id Patient Instructions Last Modified By Organization Details Last Modified Time 06/06/2022 [id number] dizziness: care instructions Not available 06/06/2022 19:14:50 [...] Not available 06/06/2022 19:14:49 Reason for Referral Fish Trapper Referral fo r Benign paroxysmal positional vertigo [...] Address Organization Details Recorded Time Essential hypertension 87765823 Active 2022 IRIS COUVERTIE R null, [place] - [facility] 3 18:23:37 Acute kidney injury 16009681 Active 2022 IRIS COUVERTIE R null, PA - [facility] 3 18:26:17 Insomnia 452349781 Active 2022 IRIS COUVERTIE R null, PA [...] Name and Address Organization Details Recorded Time 047093 Substance with sulfonami de structure and antibacte rial mechanism of action (substanc e) medicatio n Not available Not available Not available 06/06/2022 38076 8003 SNOMED IRIS COUVERTIE R null, PA - [facility] 3 18:21:58 733627 gabapenti n medicatio n dizziness Not available Not available 06/06/2022 56715 RxNorm IRIS COUVERTIE R null, PA - [facility] 3 18:22:14 060666 rosuvasta tin medicatio n edema Not available Not available 06/06/2022 85010 2 RxNorm KRISHNA PEREZ [facility] [...] TABLETS BY MOUTH EVERY DAY DIRECTED BY [facility] 06/06 completed Not Available Not [...] Updated DateTime 3 187.96 cm 23.8 kg/m2 07550.5 9 g 100 % 100 % 66 [...] SNOMED-CT Code Diagnosis ICD10 Code Diagnosis Note [id number] [address] [facility] [place] [address] 08/09/2016 14:01:54 08/09/2016 14:52:09 [id number] [address] [facility] [place] [address] 10/08/2019 14:19:37 10/08/2019 15:46:07 [id number] [address] [facility] [place] [address] 06/14/2020 09:23:40 06/14/2020 09:53:11 [id number] [address] [facility] [place] [address] 12/31/2018 10:08:17 12/31/2018 10:53:03 [id number] [address] [facility] [place] [address] 06/08/2016 13:08:05 06/08/2016 14:31:43 [id number] [address] [facility] [place] [address] 01/02/2020 17:09:44 01/02/2020 17:43:56 [id number] [address] [facility] [place] [address] 12/18/2019 15:16:32 12/18/2019 16:26:12 [id number] [address] [place] [address] 02/19/2016 13:00:02 02/19/2016 13:30:00 [id number] [address] [place] [address] 02/13/2016 15:03:43 02/13/2016 15:28:04 [id number] [address] [place] [address] [place] [address] 12/08/2017 08:46:06 12/08/2017 09:50:44 [id number] [address] [place] [address] [place] [address] 03/16/2020 15:48:34 03/16/2020 18:27:17 [id number] [address] [place] [address] [place] [address] 04/30/2020 13:25:07 04/30/2020 18:52:16 [id number] [facility] JAIMES [address] [facility] [place] [address] 06/06/2022 15:33:14 07/27/2022 19:27:19 Left without being seen [id number] 9102 Z53.21 [id number] Leroy Crandall NP [address] [facility] [place] [address] 06/06/2022 17:13:56 06/06/2022 19:17:57 Benign paroxysmal positional vertigo 009547225 H81.10 Health Concerns Section Related Observation LastModified by Organization Detai ls LastModified Time None Recorded Concern Status LastModified by Organization Details LastModified Time None Recorded Advance Directives Directive None Recorded Payers Encounter Date Sequence Insurance Name Policy Number Policy Shelby Covered Member ID Shelby Member ID Guarantor Name 03/16/2020 1 [place]: [address] [employer] Eliazar Quispe [id number] Eliazar Quispe 03/16/2020 2 [place] [id number] Eliazar Quispe [id number] Eliazar Quispe 04/30/2020 1 [place] Eliazar Quispe [id number] Eliazar Berriosinger 04/30/2020 2 [place] [id number] Eliazar Quispe [id number] Eliazar Berriosinger 06/14/2020 1 [place] [employer] Eliazar Berriosinger [id number] Eliazar Berriosinger 06/14/2020 2 [place] [id number] Eliazar Berriosinger [id number] Eliazar Berriosinger 06/06/2022 1 [place] [employer] Eliazar Quispe [id number] Eliazar Berriosinger 06/06/2022 2 [place] [id number] Eliazar Berriosinger [id number] Eliazar Berriosinger 06/06/2022 1 [place] Eliazar Quispe [id number] 24 Eliazar Berriosinger 06/06/2022 2 [place] [id number] Eliazar Quispe [id number] Eliazar Quispe Notes Date Note Type [...] Crandall NP [address] [place], [address], [place] - [facility] 06/06/2022 19:16:09
--- OUTSIDE RECORDS SUMMARY | 2024-06-19 17:25 | XMS_ITS | Continuity of Care Document ---
Author Organization [facility], [facility], Cardiac EP [facility] Address [address] [facility] [address] [place] [address] Care Team Providers Care Eye Physician Name Role Phone JORDON OROZCO Clinical Cardiac Electrophysiolo gist FRANCA VELA Tumbling Barrel Painter [phone] ИВАН YANES Primary Care Provider HAN JONES Cardiac Surgeon CRISTINA LEONARD Inspector Publications ALF CHAMBERS Physician Manager Transportation Planning [phone] JOSELINE FULTON Urologist Assessment Encounter Date Assessment [...] he will be following up with his management nurse rn regarding alternative procedures, possibly a Watchman to [...] For Internal Use Only, Do Not Delete/merge, [id number] 06/01/2024 16:16:49 Medication Orders None recorded. Patient TargetsNo targets recorded. Patient Instructions Encounter Date Encounter Id Patient Instructions Last Modified By Organization Details Last Modified Time 06/01/2024 [id number] I spent a total of {{# of minutes 35#}} minutes on the same date of service providing oovt-az-dvmv and zng-qpsq-un-face patient care. Not available 06/01/2024 16:16:54 Reason for Referral None Reported. Results Created Date Observation Date Name Description Value Unit Range Abnormal Flag Note LastModifiedBy Organization Detail LastModifiedTime 05/05/19 05/03/2024 remot e devic e inter rogat ion (PROC ) No observ ation record ed. [id number] Not Available 2024 15:46:47 06/01/1906/01/2024 elect rocar diogr am No observ ation record ed. YOUSUF In-House Results For Internal Use Only, Do Not Delete/merge, [id number] 06/01/2024 16:16:01 06/01/19 elect rocar diogr am No observ ation record ed. [email or web address] Not Available 06/04 08:55:40 06/06/19 25 04/13/2024 US, echoc ardio gram, trans esoph ageal No observ ation record ed. [facility] [place], [place], [address], 06/06/2024 09:41:52 06/11/1906/01/2024 devic e check (PROC ) No observ ation record ed. [id number] Not Available 2024 16:11:44 Result Notes None recorded. Problems Name Problem SNOMED Code Status Onset Date Resolution Date Notes Provider Name and Address Organization Details Recorded Time Atrial flutter 9418452 [facility] 2 14:43:55 Persisten t atrial fibrillat ion 995955729 Active [facility] 2 14:44:26 Rupture of tendon 459019027 Active Nontrauma tic L ankle Jane guajardo [place] - Johann [facility] 2 14:45:26 History of cardiover vita 903106440350 08 Active [place] [facility] 2 14:45:57 Cerebrova scular accident 720722879 Active Jane guajardo [place] - [facility] 2 14:46:07 Dyspnea 363819103 Active Jane guajardo [place] - [facility] 2 14:46:19 Insomnia 860566927 Active Jane Rodartedridge null, [facility] 2 14:46:34 Nerve injury 07839258 Active Right Arm Jane Monidge null, [facility] 2 14:47:21 Arthritis 7896455 Active Right Foot Jane Rodartedridge null, [facility] 2 14:47:56 Cardiac arrhythmi a 298546895 Active 2022 Arden Cosme null, [facility] 3 13:53:39 Palpitati ons 89304798 Active 2022 ARCHANA CARIAS [address] [place] [address], [place], [place], [address] [place] [address] 8, [facility] 3 14:57:10 Paroxysma l atrial fibrillat ion 882761645 Active 2022 ARCHANA CARIAS [address] [place] [address], [place], [place], [address] [place] [address] 8, [facility] 3 14:59:34 Ventricul ar premature beats 66601182 Active 2022 ARCHANA CARIAS [address] [place] [address], [place], [place], [address] [place] [address] 8, [facility] 3 14:59:56 Left atrial appendage absent 705778295 Active 2022 s/p clipping of GABRIEL at time of MV repair, 2021 ARCHANA Cooper [address] [place] [address], [place], [address], [facility] 4 09:17:42 Left bundle branch hemiblock 7373560 Active [address] [place] [address], [place], [address], 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 XT MRI DEVICE SERIAL NUMBER [id number] DEVICE TYPE Pacemaker DATE OF IMPLANT 28-Nov-19 22 pt transferr ed into 's [facility] [place] 12/13/2023 Phoebe Mccracken RN [address], [place], [address], [place] - [facility] 4 12:20:39 Nonsustai marcelo ventricul ar tachycard ia 836679176 Active 2023 ARCHANA Cooper [address] FLOOR, [place], [address], [place] - [facility] 4 12:44:39 Problem Notes None recorded. Procedures Surgical History Date Name Laterality Status Provider Name and Address Organization Details Recorded Time 06/01/19 25 In-person Programming of Pacemaker: Dual Chamber CPT 80557,26 completed AR[address]NA Cooper [address] [place] [address], [place], [address], [place] - [facility] 06/01/2024 16:12:50 05/14/19 25 insertion of stent into urethra completed Joi loya [place] - [facility] 06/01/2024 15:31:08 12/05/19 24 In-person Programming of Pacemaker: Dual Chamber CPT 17012,26 [address] FLOOR, [place], [address], [place] - [facility] 12/05/2023 16:20:31 06/06/19 24 In-person Programming of Pacemaker: Dual Chamber CPT 02931,26 [address] Cooper [address] FLOOR, [place], [address], [place] - [facility] 06/07/2023 12:27:03 11/27/19 23 In-person Programming of Pacemaker: Dual Chamber CPT 74779,26 completed ARCHANA Cooper [address] FLOOR, [place], [address], [place] - [facility] 11/26/2022 16:11:31 05/27/19 23 In-person Programming of Pacemaker: Dual Chamber CPT 50888,26 completed ARCHANA CARIAS [address] FLOOR, [place], [address], [place] - [facility] 05/27/2022 15:17:02 04/25/19 23 Hernia repair: Incisional completed Jane ALLEN - [facility] 12/05/2023 15:26:37 02/05/20 22 In-person Programming of Pacemaker: Dual Chamber CPT 83565,26 completed Jordon Orozco MD [address] FLOOR, [place], [address], [place] - [facility] 02/04/2022 17:05:28 11/28/19 22 cardiac pacemaker procedure completed Han Mills RN [address] FLOOR, [place], [address], [place] - [facility] 02/04/2022 16:16:27 11/13/19 22 Maze procedure completed Han Mills RN [address] [place] [address], [place], [address], [place] - [facility] 11/24/2021 13:27:31 11/13/19 22 atrial appendage excision completed Han Mills RN [address] [place] [address], [place], [address], [place] - [facility] 11/24/2021 13:27:59 04/25/19 22 Other completed Jane ALLEN - [facility] 12/05/2023 15:26:37 04/25/19 22 Pacemaker completed Jane ALLEN [facility] 12/05/2023 15:26:37 03/16/20 21 catheter ablation of arrhythmogenic focus completed Jane ALLEN [facility] 09/23/2021 14:50:10 05/07/19 21 catheter ablation of arrhythmogenic focus completed Jane ALLEN [facility] 09/23/2021 14:49:31 05/07/19 21 catheter ablation of arrhythmogenic focus completed Jane ALLEN [facility] 09/23/2021 14:49:45 04/25/19 21 Hernia repair: Inguinal completed Janeyovani Wills [facility] 12/05/2023 15:26:37 04/25/19 19 Cataract removal / Lens implant completed Janeyovani ALLEN [facility] 12/05/2023 15:26:37 04/25/19 13 operative procedure on cartilage completed Janeyovani ALLEN [facility] 09/23/2021 14:51:05 04/25/19 13 Shoulder joint surgery completed Janeyovani ALLEN [facility] 09/23/2021 14:51:34 04/25/19 13 Shoulder repair completed Janeyovani ALLEN [facility] 12/05/2023 15:26:37 04/25/19 02 LASIK completed Janeyovani ALLEN [facility] 12/05/2023 15:26:37 Tonsillectomy completed Janeyovani ALLEN [facility] 09/23/2021 14:52:05 repair of mitral valve completed Han Mills RN [address] [place] [address],[address], [place], [address], ALEJANDRO [facility] 11/24/2021 13:31:59 Imaging Results Imaging Date Name Status LastModified by Organization Details LastModified Time 06/01/2024 electrocardiogram completed YOUSUF In-Hous e Results For Internal Use Only, Do Not Delete/merge, [id number] 06/01/2024 16:16:01 Procedure Notes None recorded. Medical Equipment None Reported. Allergies Allergen ID Allergen Name Allergen Category Reaction Reaction Severity Criticality Documentation Date Start Date Code Code System Note Provider Name and Address Organization Details Recorded Time 948743 metoprolo l Not available dizziness palpitati ons severe Not available Not available 09/23/2021 6918 RxNorm ALEJANDRO Ma [facility] 2 14:56:20 493301 Substance with sulfonami de structure and antibacte rial mechanism of action (substanc e) medicatio n Not available Not available Not available 09/23/2021 78047 8003 SNOMED Unsur e Child moreland react ion Jane Shukri guajardo, [facility], [facility] 2 14:57:02 205250 gabapenti n medicatio n other moderate Not available 02/04/2022 66831 RxNorm Beni ce & gate Han Mills RN [address], [place], [address], [facility], [facility] 2 16:11:28 290145 Product containin g 3-hydroxy -3-methyl glutaryl- coenzyme A reductase inhibitor (product) medicatio n muscle cramps severe Not available 02/04/2022 79949 009 SNOMED Han Mills RN [address], [place], [address], [facility], [facility] 2 16:12:03 398757 amoxicill in medicatio n rash Not available Not available 11/26/2022 723 RxNorm David guajardo, [facility], [facility] 3 15:16:47 Medications Name Sig Start Date [...] TABLETS BY MOUTH EVERY DAY DIRECTED BY [facility] 11/26 completed Not Available Not Available Not [...] Updated DateTime 5 187.96 cm 25 kg/m2 39168.5 1 g 16 /min 74 /min 98 % 98 % 118 mm[Hg] 68 mm[Hg] Joi loya [facility] 5 15:34:54 Social History Question Answer Notes LastModified by Organizat ion Details LastModified Time Tobacco Smoking Status Former Smoker quit greater than 40 years Annette Cuellar RN [address] [facility],[address]LO[address], [place], [address], [facility] 09/28/2021 13:21:29 Do You Have An Advance Directive? Yes [email or web address] Information not available 06/06/2023 What Is Your Level Of Alcohol Consumption? Occasional Information not available 11/26/2022 How Many Times Per Week Do You Consume Alcohol? Less Than 1 Time Per Week Information not available 06/06/2023 Is Blood Transfusion Acceptable In An Emergency? Yes [email or web address] Information not available 06/06/2023 What Is Your Level Of Caffeine Consumption? Moderate 1-2 Cups Of Coffee Information not available 06/06/2023 What Type Of Diet Are You Following? CARDIAC Information not available 09/28/2021 When Did You Quit Smoking? 16+yearssincel astcigarette Information not available 06/06/2023 Do You Have A Veterinary Livestock Inspector (loved One Involved In Your Care)? No Information not available 11/26/2022 Do You Feel Safe At Home? Yes Information not available 09/28/2021 Over The Last 3 Months, Have You Struggled With Housing? No [email or web address] Information not available 12/05/2023 Over The Last 3 Months, Have You Struggled With Access To Food? No [email or web address] Information not available 12/05/2023 Over The Last 3 Months, Have You Struggled With Utilities? No [email or web address] Information not available 12/05/2023 Over The Last 3 Months, Have You Struggled With Transportation? No [email or web address] Information not available 12/05/2023 Over The Last 3 Months, Have You Orgas Unsafe In Your Relationship? No [email or web address] Information not available 12/05/2023 What Was The Date Of Your Most Recent Tobacco Screening? 06/01/2024 [email or web address] Information not available 06/01/2024 How Many Children Do You Have? 2 Information not available 09/28/2021 Do You Use Any Illicit Or Recreational Drugs? No [email or web address] Information not available 06/06/2023 Has Tobacco Cessation Counseling Been Provided? No [email or web address] Information not available 12/05/2023 How Many Years Have You Smoked Tobacco? 15 Information not available 06/06/2023 Do You Or Have You Ever Used Any Other Forms Of Tobacco Or Nicotine? No Information not available 06/06/2023 Sex: Male Functional Status Question Answer Note LastModified by Organizat ion Details LastModified Time What is your exercise level? Occasional [email or web address] Information not available 06/06/2023 Mental Status None recorded. Family History Relationship Description Onset Age of this Age Resolved Age Notes LastModified by Organization Details LastModified Time Mother Dementia 97 Not availa ble 09/23/2021 14:55:32 Father Family history of stroke 87 Not available 04/2021 14:55:47 Notes:11/26/22 J Medical History Condition Response Gout N High Blood Pressure N Atrial Fibrillation Y Thyroid problems N Asbestos exposure N Blood disorders N Colonoscopy N COPD N Glaucoma N [...] SNOMED-CT Code Diagnosis ICD10 Code Diagnosis Note [id number] ARCHANA Cooper Cardiac EP [place] [address] [facility], [address] [place] [address] 06/01/2024 15:17:26 06/04/2024 11:25:01 Cardiac arrhythmia 844590834 I49.9 Cardiac pa cemaker in situ 413961190 Z95.0 Atrial flutter 7088232 I 48.92 Left atria l appendage absent 801774211 Q20.8 Health Concerns Section Related Observation LastModified by Organization Detai ls LastModified Time None Recorded Concern Status LastModified by Organization Details LastModified Time None Recorded Payers Encounter Date Sequence Insurance Name Policy Number Policy Shelby Covered Member ID Shelby Member ID Guarantor Name 06/01/2024 1 MEDICARE B-[place]: NGS Eliazar Quispe [id number] Eliazar Quispe 06/01/2024 2 [place] [id number] Eliazar Quispe [id number] Eliazar Quispe Notes Date Note Type [...] excellent health. 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 He was referred to Dr. White at [facility]. As far as I can tell, [...] he was admitted to [facility] on 01/18/20 with increasing shortness of [...] had an echocardiogram at [facility] done on 01/16/20. 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 He has a son Han who lives in [place].I would note that one of the possibilities [...] studies were drawn at [facility]. His vitamin B12 level was [...] also showed 2500 PACs. We reviewed his Airbiquity ari which showed episodes of possible A. [...] any cardiac complaints. He was using his Airbiquity ari routinely which was showing sinus rhythm. A Holter monitor done prior to our visit showed a significant decline in his PVC burden and PAC burden. We did not make any changes to his medication. I asked that he follow-up with his management nurse rn regarding the mitral regurgitation noted on his echocardiogram.He did have a hernia repair shortly after that visit.However in December 2020 he was found to have atrial flutter on his Airbiquity ari which was also confirmed on an EKG.He was brought to the EP lab on March 16, [address] Deras and underwent a successful ablation of mitral valve flutter with both epicardial and endocardial ablation. He was seen at [facility] in April 2021. He denied any recurrence of arrhythmias or palpitations. He was using his cardia monitor daily which did not show any atrial fibrillation or rapid heartbeats. He reported occasional chest discomfort and we asked him to follow-up with his management nurse rn. We also felt he should have another [...] by Dr. Castillo Aguillon. This is a Treatsietronic dual-chamber unit which is an Becky XT [...] and he had a follow-up with his management nurse rn. PVC counters showed 75/h. He had an [...] disease. He had close follow-up with his care aide. We noted frequent PVCs on his device [...] We also left a message with his management nurse rn to consider a CESILIA to see if the left atrial appendage is completely walled off as he had a resection at the time of his MVR/MAZE. Since that time, he reports having a CESILIA through his management nurse rn which apparently showed a leak at the left atrial appendage clipping site. The patient contacted our office for our recommendations. Given his elevated [id number] score of 5, I recommended that he restart Eliquis. He declined going back on the medication and understood there is a risk of stroke. We also recommended he see a structural management nurse rn to see if he is a candidate for a Watchman procedure depending on the size of the left atrial appendage leak. I offered to send him to a physician in [place] but since he lives in [place], he wanted to find someone in his area. He comes in today for follow-up. He is feeling well and denies palpitations, chest pain or shortness of breath. He is seeing his management nurse rn next month and will be seeing someone regarding the left atrial appendage leak as well. ARCHANA Cooper [address] [place] [address],[address], [place], [address], [facility], [facility] 06/01/2024 16:17:21
--- OUTSIDE RECORDS SUMMARY | 2024-06-19 17:25 | XMS_ITS | Encounter Summary ---
Author Organization [facility] Address [address] [place] [address] Care Team Providers Care Wing Mailer Machine Operator Name Role Phone Gerda Feldman MD Primary Care Provider Jaylen Amin MD Unavailable [phone] Robert Crockett MD Unavailable [phone] Osmel Huerta MD Unavailable [phone] Wil Deras MD Unavailable Encounter Details Date Type Department Care Team (Late st Contact Info) Description 02/13/2021 Telephone [facility] Heart & Vascular [place] - Electrophysiology [address] [place] [address] Wil Deras MD [address] [place] [address] Social History Tobacco Use Types Packs/Day Years [...] on filedocumented in this encounter Care Teams Wing Mailer Machine Operator Relationship Specialty Start Date End Date Gerda Feldman MD [address] [place] [address] [place] [address] PCP - General Internal Medicine 02/05/20 Jaylen Amin MD [address] [address] College Instructor Cardiovascular Disease 02/05/20 Robert Crockett MD [address] [address] Physician Cardiac Electrophysiology 03/01/2004/29 Osmel Huerta MD [address] [place] [address] [address] [place] [address] Surgery, General 09/04/20 Wil Deras MD [address] [place] [address] Cardiovascular Disease 04/30/21 documented as of this encounter
--- OUTSIDE RECORDS SUMMARY | 2024-06-19 17:25 | XMS_ITS | Encounter Summary ---
Author Organization [facility] Address [address] [place] [address] Care Team Providers Care Tester/Lift Trucker Name Role Phone Gerda Feldman MD Primary Care Provider [phone] Jaylen Amin MD Unavailable [phone] Robert Crockett MD Unavailable [phone] Osmel Huerta MD Unavailable [phone] Wil Deras MD Unavailable Encounter Details Date Type Department Care Team (Late st Contact Info) Description 05/06/2020 Prep for Surgery [facility] Heart & Vascular [place] - Electrophysiology [address] [place] [address] [place] [address] Sophie Gtz, TESTER/LIFT TRUCKER [address] [address] Social History Tobacco Use Types [...] documented as of this encounter Care Teams Tester/Lift Trucker Relationship Specialty Start Date End Date Gerda Feldman MD [address] [place] [address] [facility] [place] [address] PCP - General Internal Medicine 02/05/20 Jaylen Amin MD [address] [address] Tube Washer Cardiovascular Disease 02/05/20 Robert Crockett MD [address] [address] Physician Cardiac Electrophysiology 03/01/2004/29 Osmel Huerta MD [address] [place] [address] [address] [place] [address] Surgery, General 09/04/20 Wil Deras MD [address] [place] [address] Cardiovascular Disease 04/30/21 documented as of this encounter
--- OUTSIDE RECORDS SUMMARY | 2024-06-19 17:25 | XMS_ITS | Encounter Summary ---
Author Organization [facility] Address [address] [place] [address] Care Team Providers Care Search Lead Name Role Phone Gerda Feldman MD Primary Care Provider [phone] Jaylen Amin MD Unavailable Robert Crockett MD Unavailable [phone] Osmel Huerta MD Unavailable [phone] Wil Deras MD Unavailable Encounter Details Date Type Department Care Team (Late st Contact Info) Description 09/05/2020 Scanned Document [address] [place] [address] Provider, Janett, [address] [place] [address] Social History Tobacco Use Types Packs/Day Years [...] on filedocumented in this encounter Care Teams Search Lead Relationship Specialty Start Date End Date Gerda Feldman MD [address] [place] [address] [place] [address] PCP - General Internal Medicine 02/05/20 Jaylen Amin MD [address] [address] Pre Kindergarten Teacher Cardiovascular Disease 02/05/20 Robert Crockett MD [address] [address] Physician Cardiac Electrophysiology 03/01/2004/29 Osmel Huerta MD [address] [place] [address] [address] [place] [address] Surgery, General 09/04/20 Wil Deras MD [address] [place] [address] Cardiovascular Disease 04/30/21 documented as of this encounter
--- OUTSIDE RECORDS SUMMARY | 2024-06-19 17:25 | XMS_ITS | Encounter Summary ---
Author Organization [facility] Address [address] [place] [address] Care Team Providers Care Timber Management Technician Name Role Phone Gerda Feldman MD Primary Care Provider [phone] Jaylen Amin MD Unavailable Robert Crockett MD Unavailable [phone] Osmel Huerta MD Unavailable Wil Deras MD Unavailable Encounter Details Date Type Department Care Team (Late st Contact Info) Description 03/11/2021 Telephone [facility] Heart & Vascular [place] - Electrophysiology [address] [place] [address] Wil Deras MD [address] [place] [address] Social History Tobacco Use Types Packs/Day Years [...] on filedocumented in this encounter Care Teams Timber Management Technician Relationship Specialty Start Date End Date Po, Gerda Medley MD [address] [place] [address] PCP - General Internal Medicine 02/05/20 Jaylen Amin MD [address] [address] Automotive Brake Technician Cardiovascular Disease 02/05/20 Robert Crockett MD [address] [address] Physician Cardiac Electrophysiology 03/01/2004/29 Osmel Huerta MD [address] [place] [address] Drive [address] [place] [address] Surgery, General 09/04/20 Wil Deras MD [address] [place] [address] Cardiovascular Disease 04/30/21 documented as of this encounter
--- OUTSIDE RECORDS SUMMARY | 2024-06-19 17:26 | XMS_ITS | Clinical Summary ---
Author Organization [facility] Address [address] [place] [address] Care Team Providers Care Laborer Bituminous Paving Name Role Phone Gerda Feldman MD Primary Care Provider Jaylen Amin MD Unavailable [phone] Osmel Huerta MD Unavailable [phone] Wil Deras MD Unavailable Allergies Active [...] Take 400 mcg by mouth daily. Active Dorothy-3 Fatty Acids (FISH OIL PO) Take by mouth daily. Active Active Problems Problem Noted Date Diagnosed Date Atrial flutter 02/03/2021 Overview (02/03/2021): Added automatically from request for surgery [id number] Persistent atrial fibrillation 05/07/2020 Tendon rupture, nontraumatic [...] 7:40 PM 03/16/2021 6:29 AM Care Teams Laborer Bituminous Paving Relationship Specialty Start Date End Date Po, Gerda Medley MD [address] [place] [address] PCP - General Internal Medicine 02/05/20 Jaylen Amin MD [address] [place] [address] Supervisor Steno Pool Cardiovascular Disease 02/05/20 Osmel Huerta MD [address] [place] [address] Drive [address] [place] [address] Surgery, General 09/04/20 Wil Deras MD [address] [place] [address] Cardiovascular Disease 04/30/21
--- OUTSIDE RECORDS SUMMARY | 2024-06-19 17:26 | XMS_ITS | Encounter Summary ---
Author Organization [facility] Address [address] [place] [address] Care Team Providers Care Thermometer Production Worker Name Role Phone Gerda Feldman MD Primary Care Provider Jaylen Amin MD Unavailable [phone] Robert Crockett MD Unavailable [phone] Osmel Huerta MD Unavailable [phone] Wil Deras MD Unavailable Encounter Details Date Type Department Care Team (Late st Contact Info) Description 02/15/[address] [address] Robert Crockett MD [address] [place] [address] [address] [place] [address] Social History Tobacco Use Types [...] documented as of this encounter Care Teams Thermometer Production Worker Relationship Specialty Start Date End Date Gerda Feldman MD [address] [place] [address] [place] [address] PCP - General Internal Medicine 02/05/20 Jaylen Amin MD [address] [address] Service Promoter Salesperson Cardiovascular Disease 02/05/20 Robert Crockett MD [address] [address] Physician Cardiac Electrophysiology 03/01/2004/29 Osmel Huerta MD [address] [place] [address] Drive [address] [place] [address] Surgery, General 09/04/20 Wil Deras MD [address] [place] [address] Cardiovascular Disease 04/30/21 documented as of this encounter
--- OUTSIDE RECORDS SUMMARY | 2024-06-19 17:26 | XMS_ITS | Clinical Summary ---
Author Organization [facility] Address [address] [place] [address] Phone Care Team Providers Care Billing Checker Name Role Phone Gerda Feldman MD Primary Care Provider [phone] Allergies Active Allergy Reactions Criticality Noted Date [...] (11/05/2021): Added automatically from request for surgery [id number] Non-traumatic tendon rupture 01/24/2020 11/05/2021 Overview (11/05/2021): [...] age to complete this topic Insurance [facility] Care Teams Billing Checker Relationship Specialty Start Date End Date Gerda Feldman MD [facility] [place] [address] [place], [place] PCP - General Internal Medicine 10/21/21
--- OUTSIDE RECORDS SUMMARY | 2024-06-19 17:26 | XMS_ITS | Encounter Summary ---
Author Organization [facility] Address [address] [place] [address] Care Team Providers Care Drafter Seismograph Name Role Phone Gerda Feldman MD Primary Care Provider Jaylen Amin MD Unavailable Robert Crockett MD Unavailable [phone] Osmel Huerta MD Unavailable [phone] Wil Deras MD Unavailable Encounter Details Date Type Department Care Team (Late st Contact Info) Description 02/15/2020 Scanned Document [address] [place] [address] Provider, Janett, [address] [place] [address] Social History Tobacco Use Types Packs/Day Years [...] documented as of this encounter Care Teams Drafter Seismograph Relationship Specialty Start Date End Date Gerda Feldman MD [address] [place] [address] [place] [address] PCP - General Internal Medicine 02/05/20 Jaylen Amin MD [address] [address] [facility] Worker Cardiovascular Disease 02/05/20 Robert Crockett MD [address] [address] Physician Cardiac Electrophysiology 03/01/2004/29 Osmel Huerta MD [address] [place] [address] Drive [address] [place] [address] Surgery, General 09/04/20 Wil Deras MD [address] [place] [address] Cardiovascular Disease 04/30/21 documented as of this encounter
--- OUTSIDE RECORDS SUMMARY | 2024-06-19 17:26 | XMS_ITS | Encounter Summary ---
Author Organization [facility] Address [address] [place] [address] Care Team Providers Care High School Band Teacher Name Role Phone Gerda Feldman MD Primary Care Provider [phone] Jaylen Amin MD Unavailable Robert Crockett MD Unavailable [phone] Osmel Huerta MD Unavailable [phone] Wil Deras MD Unavailable Encounter Details Date Type Department Care Team (Late st Contact Info) Description 05/22/2020 Scanned Document [address] [place] [address] Provider, Janett, [address] [place] [address] Social History Tobacco Use Types Packs/Day Years [...] on filedocumented in this encounter Care Teams High School Band Teacher Relationship Specialty Start Date End Date Gerda Feldman MD [address] [place] [address] [place] [address] PCP - General Internal Medicine 02/05/20 Jaylen Amin MD [address] [address] Hearing Care Professional Cardiovascular Disease 02/05/20 Robert Crockett MD [address] [address] Physician Cardiac Electrophysiology 03/01/2004/29 Osmel Huerta MD [address] [place] [address] Drive [address] [place] [address] Surgery, General 09/04/20 Wil Deras MD [address] [place] [address] Cardiovascular Disease 04/30/21 documented as of this encounter
--- OUTSIDE RECORDS SUMMARY | 2024-06-19 17:26 | XMS_ITS | Encounter Summary ---
Author Organization [facility] Address [address] [place] [address] Care Team Providers Care Finishing Range Supervisor Name Role Phone Gerda Feldman MD Primary Care Provider Jaylen Amin MD Unavailable Robert Crockett MD Unavailable [phone] Osmel Huerta MD Unavailable [phone] Wil Deras MD Unavailable Encounter Details Date Type Department Care Team (Late st Contact Info) Description 02/15/2020 Abstract [facility]- [address] [place] [phone] [address] Social History Tobacco Use Types Packs/Day Years [...] documented as of this encounter Care Teams Finishing Range Supervisor Relationship Specialty Start Date End Date Gerda Feldman MD [address] [place] [address] [place] [address] PCP - General Internal Medicine 02/05/20 Jaylen Amin MD [address] [address] Brass Buffer Cardiovascular Disease 02/05/20 Robert Crockett MD [address] [address] Physician Cardiac Electrophysiology 03/01/2004/29 Osmel Huerta MD [address] [place] [address] [address] [place] [address] Surgery, General 09/04/20 Wil Deras MD [address] [place] [address] Cardiovascular Disease 04/30/21 documented as of this encounter
--- OUTSIDE RECORDS SUMMARY | 2024-06-19 17:26 | XMS_ITS | Clinical Summary ---
Author Organization [facility] Address [address] [place] [phone] Phone Care Team Providers Care Patient Manager Name Role Phone Physician, No Pcp Primary [...] ??F) 10/12/2021 12:42 PM EDT Respiratory Rate 20 10/12/2021 9:00 PM EDT Oxygen Saturation 96% 10/12/2021 9:00 PM EDT Inhaled Oxygen Concentration - - Weight 88.5 kg (195 lb) 10/12/2021 12:42 PM EDT Height 188 cm (6' 2 ) 10/12/2021 12:42 PM EDT Body Mass Index 25.04 10/12/2021 12:42 PM EDT Plan of Treatment Health Maintenance Due Date Last Done Comments DTaP,Tdap,and Td Vaccines (1 - Tdap) 1969 Pneumococcal Vaccine: 50+ Ye ars (1 of [...] age to complete this topic Insurance MEDICARE [facility] Care Teams Patient Manager Relationship Specialty Start Date End Date Physician, No Pcp PCP - General 10/12/21
--- OUTSIDE RECORDS SUMMARY | 2024-06-19 17:26 | XMS_ITS | Encounter Summary ---
Author Organization [facility] Address [address] [place] [address] Care Team Providers Care Electrical Design Technician Name Role Phone Gerda Feldman MD Primary Care Provider [phone] Jaylen Amin MD Unavailable Robert Crockett MD Unavailable [phone] Osmel Huerta MD Unavailable [phone] Wil Deras MD Unavailable Encounter Details Date Type Department Care Team (Late st Contact Info) Description 02/18/2020 Scanned Document [address] [place] [address] Provider, Janett, [address] [place] [address] Social History Tobacco Use Types Packs/Day Years [...] documented as of this encounter Care Teams Electrical Design Technician Relationship Specialty Start Date End Date Gerda Feldman MD [address] [place] [address] [place] [address] PCP - General Internal Medicine 02/05/20 Jaylen Amin MD [address] [address] Grinder Tender Cardiovascular Disease 02/05/20 Robert Crockett MD [address] [address] Physician Cardiac Electrophysiology 03/01/2004/29 Osmel Huerta MD [address] [place] [address] Drive [address] [place] [address] Surgery, General 09/04/20 Wil Deras MD [address] [place] [address] Cardiovascular Disease 04/30/21 documented as of this encounter
--- OUTSIDE RECORDS SUMMARY | 2024-06-19 17:26 | XMS_ITS | Encounter Summary ---
Author Organization [facility] Address [address] [place] [address] Care Team Providers Care Cougar Hunter Name Role Phone Gerda Feldman MD Primary Care Provider Jaylen Amin MD Unavailable [phone] Robert Crockett MD Unavailable [phone] Osmel Huerta MD Unavailable [phone] Wil Deras MD Unavailable Reason for Visit * Reason Comments Advice Only Encounter Details Date Type Department Care Team ([facility] st Contact Info) Description 05/16/[address] [address] Robert Crockett MD [address] [place] [address] [address] [place] [address] Advice Only Social History Tobacco [...] was very grateful. He stated he called [facility] and they havehim on a cancellation list [...] need to be cleared by his general gear straightener. Patient stated his gear straightener will not clear him until he sees [...] Patient states he booked his holter at [facility] in [place] since he lives close but it is not scheduled until 06/05. Patient would like to know if he needs to reschedule the 06/06appointment. Please advise. documented in this encounter Plan of Treatment Not on file documented as of this encounter Visit Diagnoses Not on filedocumented in this encounter Care Teams Cougar Hunter Relationship Specialty Start Date End Date Po, Gerda Medley MD [address] [place] [address] [place] [address] PCP - General Internal Medicine 02/05/20 Jaylen Amin MD [address] [address] Supervisor Pit And Auxiliaries Cardiovascular Disease 02/05/20 Robert Crockett MD [address] [address] Physician Cardiac Electrophysiology 03/01/2004/29 Osmel Huerta MD [address] [place] [address] Drive [address] [place] [address] Surgery, General 09/04/20 Wil Deras MD [address] [place] [address] Cardiovascular Disease 04/30/21 documented as of this encounter
--- OUTSIDE RECORDS SUMMARY | 2024-06-19 17:26 | XMS_ITS | Data Portability ---
Author Organization [facility], [facility], Primary Care [facility] Walk Address [address] [place] [address] Care Team Providers Care Internship Name Role Phone JORDON OROZCO Clinical Cardiac Electrophysiolo gist FRANCA VELA Environmental Adviser ИВАН YANES Primary Care Provider [phone] HAN JONES Cardiac Surgeon CRISTINA LEONARD Short Story Writer ANGELITA CHAMBERS Physician Behavioral Medical Director JOSELINE FULTON Urologist Assessment Encounter Date Assessment [...] rhythm sinus bradycardia. 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 Device mode AAIR <=> DDDR 60-130 bpm. Lead parameters are stable. OPERATING ROOM SCHEDULER <0.1%, AP 93.1%. No atrial or ventricular [...] were made. He will refer to his clinical quality rn for any blood pressure control guidelines. He [...] on September 26 and occurred in the rn orthopaedic hours. The other 2 episodes were in [...] a stress test. He is seeing his clinical quality rn on December 02. The patient will bring this up with his clinical quality rn and I will send him a copy [...] I will discuss this with the patient's clinical quality rn to see if they can arrange for this where Mr. Quispe lives in [place]. We will await PET scan and genetics. I will see him back in the office in 6 months. I left a message on the patient's cell phone after our visit to discuss the above. I also left a message with his clinical quality rn asking him to call me to discuss [...] hour. His monitor is followed by his clinical quality rn. He continues to have frequent PVCs as [...] will obtain his recent echo from his clinical quality rn office. His main concern is fatigue, anemia and chronic kidney disease. He has follow-up with nephrology next week. I have asked him to call us if he develops any palpitations. He has close follow-up with his clinical quality rn. I would like to see him back [...] he will be following up with his clinical quality rn regarding alternative procedures, possibly a Watchman [...] For Internal Use Only, Do Not Delete/merge, [id number] 06/01/2024 16:16:49 electroca rdiogram 2023 024 In-House Results, For Internal Use Only, Do Not Delete/merge, [id number] 12/05/2023 16:24:44 electroca rdiogram 2023 024 In-House Results, For Internal Use Only, Do Not Delete/merge, [id number] 06/06/2023 16:39:34 electroca rdiogram 2022 023 In-House Results, For Internal Use Only, Do Not Delete/merge, [id number] 11/26/2022 16:14:21 electroca rdiogram 2022 023 In-House Results, For Internal Use Only, Do Not Delete/merge, [id number] 05/27/2022 15:29:01 Medication Orders None recorded. Patient TargetsNo targets recorded. Patient Instructions Encounter Date Encounter Id Patient Instructions Last Modified By Organization Details Last Modified Time 05/27/2022 [id number] - From an electrophysiology perspective, we feel it is low risk for you to discontinue taking Coumadin - We are STOPPING your Amiodarone - Please refer to your clinical quality rn's recommendations regarding your blood pressure recommendations - Follow up in 6 months for routine follow up Not available 05/27/2022 14:36:02 I spent a total of {{# of minutes 25#}} minutes on the same date of service providing jbms-cq-qbbp and kbv-svvi-rs-face patient care. Not available 05/27/2022 14:28:45 11/26/2022 [id number] I spent a total of {{# of minutes 35#}} minutes on the same date of service providing xoqh-qx-ckdk and yuo-uzta-hv-face patient care. Not available 11/26/2022 15:59:24 06/06/2023 [id number] I spent a total of {{# of minutes 35#}} minutes on the same date of service providing ccgg-sj-udlb and tyh-erjf-qp-face patient care. Not available 06/06/2023 16:54:15 12/05/2023 [id number] I spent a total of {{# of minutes 35#}} minutes on the same date of service providing dgba-qz-ykfm and zwu-ygog-nq-face patient care. Not available 12/05/2023 16:23:56 06/01/2024 [id number] I spent a total of {{# of minutes 35#}} minutes on the same date of service providing ggau-lb-uwyh and ryc-hcnn-qk-face patient care. Not available 06/01/2024 16:16:54 Reason for Referral None Reported. Results Created Date Observation Date Name Description Value Unit Range Abnormal Flag Note LastModifiedBy Organization Detail LastModifiedTime 05/27/1905/27/2022 j carlos beckmangr am No observ ation record ed. In-House Results For Internal Use Only, Do Not Delete/merge, [id number] 05/27/2022 15:25:52 05/27/19 elect rocar diogr am No observ ation record ed. [email or web address] Not Available 05/2022 14:03:56 05/28/19 23 05/27/2022 elect rocar diogr am No observ ation record ed. [email or web address] In-House Results For Internal Use Only, Do Not Delete/merge, [id number] 05/28/2022 11:23:34 05/28/19 23 05/27/2022 ignacio regalado ion (PROC ) No observ ation record ed. [email or web address] Not Available 2022 11:27:20 11/27/19 23 11/26/2022 elect rocar diogr am No observ ation record ed. YOUSUF In-House Results For Internal Use Only, Do Not Delete/merge, [id number] 11/26/2022 16:14:20 11/27/19 23 elect rocar diogr am No observ ation record ed. [email or web address] Not Available 10/2022 06:56:31 12/06/19 23 11/26/2022 devic e check (PROC ) No observ ation record ed. [email or web address] Not Available 2022 23:01:26 06/02/19 24 12/16/2022 trans -thor acic echoc ardio gram (TTE) (PROC ) No observ ation record ed. [facility] [address] [place] [address], [place], [address], 06/02/2023 13:58:09 06/06/19 24 06/06/2023 elect rocar diogr am No observ ation record ed. [email or web address] In-House Results For Internal Use Only, Do Not Delete/merge, [id number] 06/06/2023 16:39:33 06/06/19 24 elect rocar diogr am No observ ation record ed. Not Available 2023 16:43:35 06/19/19 24 06/08/2023 devic e check (PROC ) No observ ation record ed. [email or web address] Not Available 2023 11:37:54 06/22/19 24 06/22/2023 PET, heart No observ ation record ed. [email or web address] [facility] [address], [place], [address], 06/23/2023 09:16:18 12/05/19 24 12/05/2023 elect rocar diogr am No observ ation record ed. [email or web address] In-House Results For Internal Use Only, Do Not Delete/merge, [id number] 12/05/2023 16:25:03 12/05/19 24 elect rocar diogr am No observ ation record ed. Not Available 2023 16:25:04 12/06/19 24 11/29/2023 US, echoc ardio gram No observ ation record ed. [email or web address] Not Available 10:41:26 12/11/19 24 12/05/2023 devic [...] For Internal Use Only, Do Not Delete/merge, [id number] 06/01/2024 16:16:01 06/01/19 elect rocar diogr am No observ ation record ed. Not Available 06/04 08:55:40 06/06/19 25 04/13/2024 US, echoc ardio gram, trans esoph ageal No observ ation record ed. [facility] [address] [place], [place], [address], 06/06/2024 09:41:52 06/11/19 25 06/01/2024 devic e check (PROC ) No observ ation record ed. [email or web address] Not Available 2024 16:11:44 Result Notes None recorded. Problems Name Problem SNOMED Code Status Onset Date Resolution Date Notes Provider Name and Address Organization Details Recorded Time Atrial flutter 7395968 Active ALEJANDRO Ma - [facility] 2 14:43:55 Persisten t atrial fibrillat ion 891799678 Active [place]ovani [place], [place] [facility] 2 14:44:26 Rupture of tendon 390324117 Active Nontrauma tic L ankle Jane Monidge null, [place] [facility] 2 14:45:26 History of cardiover vita 014696048501 08 Active Janeyovani RodarteShukri null, [facility] 2 14:45:57 Cerebrova scular accident 464225815 Active Jane Shukri null, [place] - [facility] 2 14:46:07 Dyspnea 312861201 Active Jane Shukri null, [facility] 2 14:46:19 Insomnia 076623479 Active Jane [place] null, [facility] 2 14:46:34 Nerve injury 85974886 Active Right Arm Jane Rodartedridge null, [facility] 2 14:47:21 Arthritis 9640156 Active Right Foot Jane Shukri null, [facility] 2 14:47:56 Cardiac arrhythmi a 059399270 Active 2022 Arden Cosme null, [facility] 3 13:53:39 Palpitati ons 15602974 Active 2022 ARCHANA CAIRAS [address], [place], [address], [place] - [facility] 3 14:57:10 Paroxysma l atrial fibrillat ion 253936769 Active 2022 ARCHANA CARIAS [address], [place], [address], [place] - [facility] 3 14:59:34 Ventricul ar premature beats 72539282 Active 2022 ARCHANA CARIAS [address], [place], [address], [place] - [facility] 3 14:59:56 Left atrial appendage absent 295518919 Active 2022 s/p clipping of GABRIEL at time of MV repair, 2021 ARCHANA Cooper [address] [place] [address], [place], [address], [place] - [facility] 4 09:17:42 Left bundle branch hemiblock 6706084 Active [address] [place] [address], [place], [address], [place] - [facility] 3 15:03:55 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 XT MRI DEVICE SERIAL NUMBER [id number] G DEVICE TYPE Pacemaker DATE OF IMPLANT 28-Nov-19 22 pt transferr ed into 's remote clinic from [place] 12/13/2023 Phoebe Mccracken RN [address] [place] [address], [place], [address], [place] - [facility] 4 12:20:39 Nonsustai marcelo ventricul ar tachycard ia 883341999 Active [address] [place] [address], [place], [address], [place] - [facility] 4 12:44:39 Problem Notes None recorded. Procedures Surgical History Date Name Laterality Status Provider Name and Address Organization Details Recorded Time 06/01/19 25 In-person Programming of Pacemaker: Dual Chamber CPT 81159,26 completed [address] Cooper [address] [place] [address], [place], [address], [place] - [facility] 06/01/2024 16:12:50 05/14/19 25 insertion of stent into urethra completed Joi loya [facility] 06/01/2024 15:31:08 12/05/19 24 In-person Programming of Pacemaker: Dual Chamber CPT 68565,26 completed ARCHANA Cooper [address] FLO[facility], [place], [address], [facility] 12/05/2023 16:20:31 06/06/19 24 In-person Programming of Pacemaker: Dual Chamber CPT 88014,26 completed ARCHANA Cooper [address] F[facility], [place], [address], [facility] 06/07/2023 12:27:03 11/27/19 23 In-person Programming of Pacemaker: Dual Chamber CPT 35216,26 completed ACRHANA Cooper [address] [place] [address], [place], [address], [facility] 11/26/2022 16:11:31 05/27/19 23 In-person Programming of Pacemaker: Dual Chamber CPT 57220,26 completed ARCHANA CARIAS [address] [place] [address], [place], [address], [facility] 05/27/2022 15:17:02 04/25/19 23 Hernia repair: Incisional completed Jane Watt [facility] 12/05/2023 15:26:37 02/05/20 22 In-person Programming of Pacemaker: Dual Chamber CPT 25466,26 completed Jordon Orozco MD [address], [place], [address], [facility] 02/04/2022 17:05:28 11/28/19 22 cardiac pacemaker procedure completed Han Mills RN [address], [place], [address], [place] [facility] 02/04/2022 16:16:27 11/13/19 22 Maze procedure completed Han Mills RN [address], [place], [address], ALEJANDRO - [facility] 11/24/2021 13:27:31 11/13/19 22 atrial appendage excision completed Han Mills RN [address], [place], [address], ALEJANDRO - [facility] 11/24/2021 13:27:59 04/25/19 22 Other completed Jane ALLEN [facility] 12/05/2023 15:26:37 04/25/19 22 Pacemaker completed Janeyovani ALLEN [facility] 12/05/2023 15:26:37 03/16/20 21 catheter ablation of arrhythmogenic focus completed Janeyovani ALLEN [facility] 09/23/2021 14:50:10 05/07/19 21 catheter ablation of arrhythmogenic focus completed Jane Wills [facility] 09/23/2021 14:49:31 05/07/19 21 catheter ablation of arrhythmogenic focus completed Janeyovani ALLEN [facility] 09/23/2021 14:49:45 04/25/19 21 Hernia repair: Inguinal completed Janeyovani Wills [facility] 12/05/2023 15:26:37 04/25/19 19 Cataract removal / Lens implant completed Janeyovani Wills [facility] 12/05/2023 15:26:37 04/25/19 13 operative procedure on cartilage completed Janeyovani [facility] 09/23/2021 14:51:05 04/25/19 13 Shoulder joint surgery completed Jane [facility] 09/23/2021 14:51:34 04/25/19 13 Shoulder repair completed Jane [facility] 12/05/2023 15:26:37 04/25/19 02 LASIK completed Janeyovani [facility] 12/05/2023 15:26:37 Tonsillectomy completed Jnaeyovani ALLEN [facility] 09/23/2021 14:52:05 repair of mitral valve completed Han Mills, RN [address] [facility],[address], [place], [address], [place] - [facility] 11/24/2021 13:31:59 Imaging Results Imaging Date Name Status LastModified by Organization Details LastModified Time 05/27/2022 electrocardiogram completed In-Hous e Results For Internal Use Only, Do Not Delete/merge, [id number] 05/27/2022 15:25:52 05/27/2022 electrocardiogram completed Infor mation not available 05/27/2022 14:03:56 05/27/2022 electrocardiogram completed [email or web address] In-Hous e Results For Internal Use Only, Do Not Delete/merge, [id number] 05/28/2022 11:23:34 05/27/2022 pacemaker interrogation (PROC) completed Information not available 05/28/2022 11:27:20 11/26/2022 electrocardiogram completed [email or web address] In-Hous e Results For Internal Use Only, Do Not Delete/merge, [id number] 11/26/2022 16:14:20 11/26/2022 electrocardiogram completed Infor mation not available 11/29/2022 06:56:31 11/26/2022 device check (PROC) completed [email or web address] Infor mation not available 12/05/2022 23:01:26 12/16/2022 trans-thoracic echocardiogram (TTE) (PROC) completed [address] [facility] [address] [place] [address], [address], 06/02/2023 13:58:09 06/06/2023 electrocardiogram completed [email or web address] In-Hous e Results For Internal Use Only, Do Not Delete/merge, [id number] 06/06/2023 16:39:33 06/06/2023 electrocardiogram completed [email or web address] Informa tion not available 06/06/2023 16:43:35 06/08/2023 device check (PROC) completed [email or web address] Infor mation not available 06/19/2023 11:37:54 06/22/2023 PET, heart completed [email or web address] [facility] [address] [place] [address] [address] [place], [place], [address], 06/23/2023 09:16:18 12/05/2023 electrocardiogram completed [email or web address] In-Hous e Results For Internal Use Only, Do Not Delete/merge, [id number] 12/05/2023 16:25:03 12/05/2023 electrocardiogram completed Informa tion not available 12/05/2023 16:25:04 11/29/2023 US, echocardiogram completed [email or web address] Inf ormation not available 12/06/2023 10:41:26 12/05/2023 [...] For Internal Use Only, Do Not Delete/merge, [id number] 06/01/2024 16:16:01 06/01/2024 electrocardiogram completed [email or web address] Informa tion not available 06/04/2024 08:55:40 04/13/2024 US, echocardiogram, transesophageal completed [facility] [address] [place] [address] [address] [place], [place], [address], 06/06/2024 09:41:52 06/01/2024 device check (PROC) completed [email or web address] Infor mation not available 06/11/2024 16:11:44 Procedure Notes None recorded. Medical Equipment None Reported. Allergies Allergen ID Allergen Name Allergen Category Reaction Reaction Severity Criticality Documentation Date Start Date Code Code System Note Provider Name and Address Organization Details Recorded Time 763090 metoprolo l Not available dizziness palpitati ons severe Not available Not available 09/23/2021 6918 RxNorm Jane guajardo, [facility] 2 14:56:20 934805 Substance with sulfonami de structure and antibacte rial mechanism of action (substanc e) medicatio n Not available Not available Not available 09/23/2021 13714 8003 SNOMED Unsur e Child moreland react ion Jane Shukri guajardo, [facility] 2 14:57:02 827281 gabapenti n medicatio n other moderate Not available 02/04/2022 54491 RxNorm Beni ce & gate Han Mills RN [address], [place], [address], [facility] 2 16:11:28 650857 Product containin g 3-hydroxy -3-methyl glutaryl- coenzyme A reductase inhibitor (product) medicatio n muscle cramps severe Not available 02/04/2022 70774 009 SNOMED Han Mills RN [address], [place], [address], [facility] 2 16:12:03 320482 amoxicill in medicatio n rash Not available Not available 11/26/2022 723 RxNorm David Evelyn guajardo, [facility] 3 15:16:47 [...] TABLETS BY MOUTH EVERY DAY DIRECTED BY [facility] 11/26 completed Not Available Not [...] Updated DateTime 3 187.96 cm 23.6 kg/m2 97965 g 16 /min 98 % 98 % 67 /min 108 mm[Hg] 70 mm[Hg] Arden Cosme [facility] 3 13:53:30 Date Recorded Body height Body mass index (BMI) Body weight Systolic blood pressure Diastolic blood pressure Provider Name and Address Organization Details Last Updated DateTime 11/26/2022 187.96 cm 23.1 kg/m2 94392.63 g 112 mm[Hg] 64 mm[Hg] David Rivas [facility] 3 15:22:35 Date Recorded Body height Body mass index (BMI) Body weight Respiratory rate Heart rate Oxygen saturation Oxygen saturation in Arterial blood by Pulse oximetry Systolic blood pressure Diastolic blood pressure Provider Name and Address Organization Details Last Updated DateTime 4 187.96 cm 23.1 kg/m2 60876.6 3 g 16 /min 62 /min 99 % 99 % 110 mm[Hg] 62 mm[Hg] Lona Arellano [facility] 4 15:20:27 Date Recorded Body height Body mass index (BMI) Body weight Respiratory rate Body temperature Oxygen saturation Oxygen saturation in Arterial blood by Pulse oximetry Heart rate Systolic blood pressure Diastolic blood pressure Provider Name and Address Organization Details Last Updated DateTime 4 187.96 cm 24.4 kg/m2 09178.5 5 g 16 /min 99.1 [degF] 99 % 99 % 55 /min 126 mm[Hg] 70 mm[Hg] Jane Watt [facility] 4 15:37:28 Date Recorded Body height Body mass index (BMI) Body weight Respiratory rate Heart rate Oxygen saturation Oxygen saturation in Arterial blood by Pulse oximetry Systolic blood pressure Diastolic blood pressure Provider Name and Address Organization Details Last Updated DateTime 5 187.96 cm 25 kg/m2 27638.5 1 g 16 /min 74 /min 98 % 98 % 118 mm[Hg] 68 mm[Hg] Joi pereracristofer [facility] 15:34:54 Social History Question Answer Notes LastModified by Organizat ion Details LastModified Time Tobacco Smoking Status Former Smoker quit greater than 40 years Annette Cuellar RN [address] [facility],[address], [place], [address], [facility] 09/28/2021 13:21:29 Do You Have An Advance Directive? Yes [email or web address] Information not available 06/06/2023 What Is Your Level Of Alcohol Consumption? Occasional Information not available 11/26/2022 How Many Times Per Week Do You Consume Alcohol? Less Than 1 Time Per Week Information not available 06/06/2023 Is Blood Transfusion Acceptable In An Emergency? Yes [email or web address] Information not available 06/06/2023 What Is Your Level Of Caffeine Consumption? Moderate 1-2 Cups Of Coffee Information not available 06/06/2023 What Type Of Diet Are You Following? CARDIAC Information not available 09/28/2021 When Did You Quit Smoking? 16+yearssincel astcigarette Information not available 06/06/2023 Do You Have A House Cleaner Supervisor (loved One Involved In Your Care)? No Information not available 11/26/2022 Do You Feel Safe At Home? Yes Information not available 09/28/2021 Over The Last 3 Months, Have You Struggled With Housing? No [email or web address] Information not available 12/05/2023 Over The Last 3 Months, Have You Struggled With Access To Food? No [email or web address] Information not available 12/05/2023 Over The Last 3 Months, Have You Struggled With Utilities? No [email or web address] Information not available 12/05/2023 Over The Last 3 Months, Have You Struggled With Transportation? No Information not available 12/05/2023 Over The Last 3 Months, Have You [place] Unsafe In Your Relationship? No [email or web address] Information not available 12/05/2023 What Was The Date Of Your Most Recent Tobacco Screening? 06/01/2024 [email or web address] Information not available 06/01/2024 How Many Children Do You Have? 2 Information not available 09/28/2021 Do You Use Any Illicit Or Recreational Drugs? No [email or web address] Information not available 06/06/2023 Has Tobacco Cessation Counseling Been Provided? No [email or web address] Information not available 12/05/2023 How Many Years Have You Smoked Tobacco? 15 Information not available 06/06/2023 Do You Or Have You Ever Used Any Other Forms Of Tobacco Or Nicotine? No Information not available 06/06/2023 Sex: Male Functional Status Question Answer Note LastModified by Organizat ion Details LastModified Time What is your exercise level? Occasional [email or web address] Information not available 06/06/2023 Mental Status None recorded. Family History Relationship Description Onset Age of this Age Resolved Age Notes LastModified by Organization Details LastModified Time Mother Dementia 97 [email or web address] Not availa ble 09/23/2021 14:55:32 Father Family history of stroke 87 [email or web address] Not available 04/2021 14:55:47 Notes:11/26/22 JG Medical [...] SNOMED-CT Code Diagnosis ICD10 Code Diagnosis Note [id number] Devorah Pan APRN Cardiac [facility] [address] [place] [address] 09/28/2021 12:47:43 09/28/2021 14:08:29 Cardiac arrhythmia 087160469 I49.9 Paroxysmal atrial fibrillation 298278104 I48.0 Cardiomyopathy 89827488 I42.9 [id number] Jordon Orozco MD Cardiac [facility] [address] [place] [address] 02/04/2022 15:47:13 02/04/2022 17:17:51 Palpitations 23187562 R00.2 [id number] ARCHANA CARIAS [facility] [address] [place] [address] 05/27/2022 13:34:44 05/27/2022 14:36:21 Cardiac arrhythmia 602754783 I49.9 Palpitations 65683575 R0 0.2 History of radiofrequency ablation operation for arrhythmia 185853481 Z98.890 Paroxysmal atrial fibrillation 854825916 I48.0 Ventricula r premature beats 87023764 I49.3 History of maze procedure for atrial fibrillation 312756463 Z98.890 History of repair of mitral valve 133044472 Z98.890 Left atria l appendage absent 432587874 Q20.8 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 54596710 I44.4 Cardiomyopathy 06445405 I42.9 [id number] ARCHANA Cooper Cardiac EP TEMP Curtis [address] [address] 11/26/2022 14:57:35 11/26/2022 16:03:00 Cardiac arrhythmia 266966270 I49.9 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 66442486 I44.4 Persistent atrial fibrillation 658580542 I48.19 Cardiac pa cemaker in situ 934188050 Z95.0 [id number] Angelita Coulis, PA Cardiac EP TEMP [place] 9 [facility],[address] [address] 06/06/2023 14:43:25 06/06/2023 16:06:44 Cardiac arrhythmia 644108943 I49.9 Atrial flutter 6644902 I 48.92 Cardiac pa cemaker in situ 759759911 Z95.0 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 51002929 I44.4 Nonsustain ed monomorphic ventricular tachycardia [id number] I47.29 [id number] Angelita Chambers PA Cardiac EP TEMP Curtis 9 [facility],[address] [address] 12/05/2023 15:13:26 12/05/2023 16:18:04 Cardiac arrhythmia [id number] I49.9 Atrial flutter 7292627 I 48.92 Cardiac pa cemaker in situ 144701030 Z95.0 Nonsustain ed ventricular tachycardia [id number] I47.20 [id number] ARCHANA Cooper Cardiac EP TEMP Curtis 9 [facility],[address] [address] 06/01/2024 15:17:26 06/04/2024 11:25:01 Cardiac arrhythmia [id number] I49.9 Cardiac pa cemaker in situ 152757340 Z95.0 Atrial flutter 4104680 I 48.92 Left atria l appendage absent [id number] Q20.8 Health Concerns Section Related Observation LastModified by Organization Detai ls LastModified Time None Recorded Concern Status LastModified by Organization Details LastModified Time None Recorded Advance Directives Directive Y: Payers Encounter Date Sequence Insurance Name Policy Number Policy Shelby Covered Member ID Shelby Member ID Guarantor Name 05/27/2022 1 MEDICARE B-CT: NGS Eliazar Mckinney Jose Enrique [id number] Eliazar Jose Enrique 05/27/2022 2 [place] [id number] Eliazar Mckinney Jose Enrique [id number] Eliazar Jose Enrique 11/26/2022 1 MEDICARE B-CT: NGS Eliazar Mckinney Jose Enrique [id number] Eliazar Quispe 11/26/2022 2 [place] [id number] Eliazar Quispe [id number] Eliazar Quispe 06/06/2023 1 MEDICARE B-CT: NGS Eliazar Quispe [id number] Eliazar Quispe 06/06/2023 2 [place] [id number] Eliazar Quispe [id number] Eliazar Quispe 12/05/2023 1 MEDICARE B-CT: NGS Eliazar Quispe [id number] 24 Eliazar Quispe 12/05/2023 2 [place] [id number] Eliazar Quispe [id number] Eliazar Quispe 06/01/2024 1 MEDICARE B-CT: NGS Eliazar Quispe [id number] 24 Eliazar Quispe 06/01/2024 2 [place] [id number] Eliazar Quispe [id number] Eliazar Quispe Notes Date Note Type [...] excellent health. 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 He was referred to Dr. White at [facility]. As far as I can tell, [...] that time.More recently, he was admitted to [facility] on 01/18/20 with increasing shortness [...] that admission, he had an echocardiogram at [facility] done on 01/16/20. 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 He has a son Han who lives in [place].I would note that one of the possibilities [...] distribution.His preadmission lab studies were drawn at [facility]. His vitamin B12 level [...] also showed 2500 PACs. We reviewed his VSoft ari which showed episodes of possible A. [...] any cardiac complaints. He was using his [employer] ari routinely which was showing sinus rhythm. A Holter monitor done prior to our visit showed a significant decline in his PVC burden and PAC burden. We did not make any changes to his medication. I asked that he follow-up with his clinical quality rn regarding the mitral regurgitation noted on his echocardiogram.He did have a hernia repair shortly after that visit.However in December 2020 he was found to have atrial flutter on his [employer] ari which was also confirmed on an EKG.He was brought to the EP lab on March 16, 2021 by and underwent a successful ablation of mitral valve flutter with both epicardial and endocardial ablation.He was last seen in the office at [facility] in April 2021. He had been doing [...] We asked him to follow-up with his clinical quality rn regarding need for further work-up. His EKG was unchanged compared to prior tracings and his cardiac examination was within normal limits with the exception of occasional ectopic beats. We deferred a repeat echocardiogram to his clinical quality rn given the findings of mitral regurgitation on his last echocardiogram. He remained anticoagulated with Eliquis for his FCE9TR4-GXZg score of 4. We discussed the importance [...] like getting out of bed. Despite his clinical quality rn increasing his carvedilol dose he has not [...] the procedure. We will defer to his clinical quality rn for longitudinal monitoring of his mitral regurgitation. [...] amiodarone. I spoke to Dr. Vela his clinical quality rn 10/01/2021. It was felt that he might [...] he is going to consult with a call center coordinator. Overall again however he feels significantly improved and is getting back to himself. I would note that I did have an echocardiogram today at [facility] we will be getting the results. [...] very active. He will be seeing his clinical quality rn next week. He asked that we verify [...] is on Coumadin for anticoagulation. ARCHANA CARIAS [address] [place], [place] [address]liz,[address], [place], [address], [facility], [facility] 05/27/2022 15:28:36 11/26/2022 text/html To review, [...] excellent health. 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 He was referred to Dr. White at [facility]. As far as I can tell, [...] that time.More recently, he was admitted to [facility] on 01/18/20 with increasing shortness [...] that admission, he had an echocardiogram at [facility] done on 01/16/20. 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 He has a son Han who lives in [place].I would note that one of the possibilities [...] distribution.His preadmission lab studies were drawn at [facility]. His vitamin B12 level [...] also showed 2500 PACs. We reviewed his [employer] ari which showed episodes of possible A. [...] any cardiac complaints. He was using his VSoft ari routinely which was showing sinus rhythm. A Holter monitor done prior to our visit showed a significant decline in his PVC burden and PAC burden. We did not make any changes to his medication. I asked that he follow-up with his clinical quality rn regarding the mitral regurgitation noted on his echocardiogram.He did have a hernia repair shortly after that visit.However in December 2020 he was found to have atrial flutter on his [employer] ari which was also confirmed on an EKG.He was brought to the EP lab on March 16, [address] Deras and underwent a successful ablation of mitral valve flutter with both epicardial and endocardial ablation. He was seen at [facility] in April 2021. He denied any recurrence of arrhythmias or palpitations. He was using his cardia monitor daily which did not show any atrial fibrillation or rapid heartbeats. He reported occasional chest discomfort and we asked him to follow-up with his clinical quality rn. We also felt he should have [...] remote monitoring is being followed by his clinical quality rn. ARCHANA Cooper [address] [facility],[address], [place], [address], [facility], [facility] 11/26/2022 16:26:06 06/06/2023 text/html To review, [...] excellent health. 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 He was referred to Dr. White at [facility]. As far as I can tell, [...] that time.More recently, he was admitted to [facility] on 01/18/20 with increasing shortness [...] that admission, he had an echocardiogram at [facility] done on 01/16/20. 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 He has a son Han who lives in [place].I would note that one of the possibilities [...] distribution.His preadmission lab studies were drawn at [facility]. His vitamin B12 level [...] also showed 2500 PACs. We reviewed his VSoft ari which showed episodes of possible A. [...] any cardiac complaints. He was using his VSoft ari routinely which was showing sinus rhythm. A Holter monitor done prior to our visit showed a significant decline in his PVC burden and PAC burden. We did not make any changes to his medication. I asked that he follow-up with his clinical quality rn regarding the mitral regurgitation noted on his echocardiogram.He did have a hernia repair shortly after that visit.However in December 2020 he was found to have atrial flutter on his [employer] ari which was also confirmed on an EKG.He was brought to the EP lab on March 16, [address] Deras and underwent a successful ablation of mitral valve flutter with both epicardial and endocardial ablation. He was seen at [facility] in April 2021. He denied any recurrence of arrhythmias or palpitations. He was using his cardia monitor daily which did not show any atrial fibrillation or rapid heartbeats. He reported occasional chest discomfort and we asked him to follow-up with his clinical quality rn. We also felt he should have [...] therefore had a pacemaker placed by Dr. Castilol Aguillon. This is a Medtronic dual-chamber unit which is an [place] XT DR device. The device is programmed [...] and he had a follow-up with his clinical quality rn. PVC counters showed 75/h. He had [...] to his discomfort. He is seeing his clinical quality rn tomorrow. He has a home monitor which is being followed by his clinical quality rn. ARCHANA Cooper [address] [place] [address],[address], [place], [address], [facility], [facility] 06/08/2023 10:07:34 12/05/2023 text/html To review, [...] excellent health. 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 He was referred to Dr. White at [facility]. As far as I can tell, [...] that time.More recently, he was admitted to [facility] on 01/18/20 with increasing shortness [...] that admission, he had an echocardiogram at [facility] done on 01/16/20. 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 He has a son Han who lives in [place].I would note that one of the possibilities [...] distribution.His preadmission lab studies were drawn at [facility]. His vitamin B12 level [...] also showed 2500 PACs. We reviewed his VSoft ari which showed episodes of possible A. [...] any cardiac complaints. He was using his VSoft ari routinely which was showing sinus rhythm. A Holter monitor done prior to our visit showed a significant decline in his PVC burden and PAC burden. We did not make any changes to his medication. I asked that he follow-up with his clinical quality rn regarding the mitral regurgitation noted on his echocardiogram.He did have a hernia repair shortly after that visit.However in December 2020 he was found to have atrial flutter on his [employer] ari which was also confirmed on an EKG.He was brought to the EP lab on March 16, [address] Deras and underwent a successful ablation of mitral valve flutter with both epicardial and endocardial ablation. He was seen at [facility] in April 2021. He denied any recurrence of arrhythmias or palpitations. He was using his cardia monitor daily which did not show any atrial fibrillation or rapid heartbeats. He reported occasional chest discomfort and we asked him to follow-up with his clinical quality rn. We also felt he should have [...] and he had a follow-up with his clinical quality rn. PVC counters showed 75/h. He had [...] breath, palpitations, near-syncope or syncope. ARCHANA Cooper [address] [place], [place] [address]liz.,[address], [place], [address], [facility], [facility] 12/05/2023 16:24:46 06/01/2024 text/html To review, [...] excellent health. 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 He was referred to Dr. White at [facility]. As far as I can tell, [...] that time.More recently, he was admitted to [facility] on 01/18/20 with increasing shortness [...] that admission, he had an echocardiogram at [facility] done on 01/16/20. 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 He has a son Han who lives in [place].I would note that one of the possibilities [...] distribution.His preadmission lab studies were drawn at [facility]. His vitamin B12 level [...] also showed 2500 PACs. We reviewed his VSoft ari which showed episodes of possible A. [...] any cardiac complaints. He was using his VSoft ari routinely which was showing sinus rhythm. A Holter monitor done prior to our visit showed a significant decline in his PVC burden and PAC burden. We did not make any changes to his medication. I asked that he follow-up with his clinical quality rn regarding the mitral regurgitation noted on his echocardiogram.He did have a hernia repair shortly after that visit.However in December 2020 he was found to have atrial flutter on his VSoft ari which was also confirmed on an EKG.He was brought to the EP lab on March 16, [address] Deras and underwent a successful ablation of mitral valve flutter with both epicardial and endocardial ablation. He was seen at [facility] in April 2021. He denied any recurrence of arrhythmias or palpitations. He was using his cardia monitor daily which did not show any atrial fibrillation or rapid heartbeats. He reported occasional chest discomfort and we asked him to follow-up with his clinical quality rn. We also felt he should have [...] and he had a follow-up with his clinical quality rn. PVC counters showed 75/h. He had [...] disease. He had close follow-up with his call center coordinator. We noted frequent PVCs on his device [...] We also left a message with his clinical quality rn to consider a CESILIA to see if the left atrial appendage is completely walled off as he had a resection at the time of his MVR/MAZE. Since that time, he reports having a CESILIA through his clinical quality rn which apparently showed a leak at the left atrial appendage clipping site. The patient contacted our office for our recommendations. Given his elevated SRU5CD2-CIZg score of 5, I recommended that he restart Eliquis. He declined going back on the medication and understood there is a risk of stroke. We also recommended he see a structural clinical quality rn to see if he is a candidate for a Watchman procedure depending on the size of the left atrial appendage leak. I offered to send him to a physician in [place] but since he lives in [place], he wanted to find someone in his area. He comes in today for follow-up. He is feeling well and denies palpitations, chest pain or shortness of breath. He is seeing his clinical quality rn next month and will be seeing someone regarding the left atrial appendage leak as well. ARCHANA Cooper [address], [place], [address], [facility], [facility] 06/01/2024 16:17:21
--- OUTSIDE RECORDS SUMMARY | 2024-06-19 17:26 | XMS_ITS | Encounter Summary ---
Author Organization [facility] Address [address] [place] [address] Care Team Providers Care Medical Coding Specialist Name Role Phone Gerda Feldman MD Primary Care Provider Jaylen Amin MD Unavailable Osmel Huerta MD Unavailable [phone] Wil Deras MD Unavailable Encounter Details Date Type Department Care Team (Late st Contact Info) Description 07/21/2021 Scanned Document [address] [address] Provider, MD Janett [address] [place] [address] Social History Tobacco Use Types Packs/Day Years [...] on filedocumented in this encounter Care Teams Medical Coding Specialist Relationship Specialty Start Date End Date Gerda Feldman MD [address] [place] [address] PCP - General Internal Medicine 02/05/20 Jaylen Amin MD [address] [place] [place] [address] Hse Coordinator Cardiovascular Disease 02/05/20 Osmel Huerta MD [address] [place] [address] [address] [place] [address] Surgery, General 09/04/20 Wil Deras MD [address] [place] [address] Cardiovascular Disease 04/30/21 documented as of this encounter
--- OUTSIDE RECORDS SUMMARY | 2024-06-19 17:26 | XMS_ITS | Encounter Summary ---
Author Organization [facility] Address [address] [place] [address] Care Team Providers Care Smoking Tobacco Packing Machine Hand Name Role Phone Gerda Feldman MD Primary Care Provider Jaylen Amin MD Unavailable Robert Crockett MD Unavailable [phone] Osmel Huerta MD Unavailable [phone] Wil Deras MD Unavailable Encounter Details Date Type Department Care Team (Late st Contact Info) Description 02/21/2020 Scanned Document [address] [place] [address] Provider, Janett, [address] [place] [address] Social History Tobacco Use Types Packs/Day Years [...] documented as of this encounter Care Teams Smoking Tobacco Packing Machine Hand Relationship Specialty Start Date End Date Gerda Feldman MD [address] [place] [address] [place] [address] PCP - General Internal Medicine 02/05/20 Jaylen Amin MD [address] [address] Cable Coverer Cardiovascular Disease 02/05/20 Robert Crockett MD [address] [address] Physician Cardiac Electrophysiology 03/01/2004/29 Osmel Huerta MD [address] [place] [address] Drive [address] [place] [address] Surgery, General 09/04/20 Wil Deras MD [address] [place] [address] Cardiovascular Disease 04/30/21 documented as of this encounter
--- OUTSIDE RECORDS SUMMARY | 2024-06-19 17:26 | XMS_ITS | Encounter Summary ---
Author Organization [facility] Address [address] [place] [address] Care Team Providers Care Secretary Book Keeper Name Role Phone Gerda Feldman MD Primary Care Provider Jaylen Amin MD Unavailable [phone] Robert Crockett MD Unavailable [phone] Osmel Huerta MD Unavailable [phone] Wil Deras MD Unavailable Encounter Details Date Type Department Care Team (Late st Contact Info) Description 02/15/2020 Scanned Document [address] [place] [address] Provider, Janett, [address] [place] [address] Social History Tobacco Use Types Packs/Day Years [...] documented as of this encounter Care Teams Secretary Book Keeper Relationship Specialty Start Date End Date Gerda Feldman MD [address] [place] [address] [place] [address] PCP - General Internal Medicine 02/05/20 Jaylen Amin MD [address] [address] Threshing Department Supervisor Cardiovascular Disease 02/05/20 Robert Crockett MD [address] [address] Physician Cardiac Electrophysiology 03/01/2004/29 Osmel Huerta MD [address] [place] [address] Drive [address] [place] [address] Surgery, General 09/04/20 Wil Deras MD [address] [place] [address] Cardiovascular Disease 04/30/21 documented as of this encounter
--- OUTSIDE RECORDS SUMMARY | 2024-06-19 17:26 | XMS_ITS | Encounter Summary ---
Author Organization [facility] Address [address] [place] [address] Care Team Providers Care Counselor/Art Therapist Name Role Phone Gerda Feldman MD Primary Care Provider Jaylen Amin MD Unavailable [phone] Robert Crockett MD Unavailable [phone] Osmel Huerta MD Unavailable [phone] Wil Deras MD Unavailable Reason for Visit * Reason Comments Appointment Encounter Details Date Type Department Care Team (Late st Contact Info) Description 01/08/2021 Telephone [facility] Heart & V[facility] [place] - Electrophysiology [address] [place] [address] Wil Deras MD [address] [place], [place] [id number] Appointment Social History Tobacco Use Types Packs/Day [...] on filedocumented in this encounter Care Teams Counselor/Art Therapist Relationship Specialty Start Date End Date Gerda Feldman MD [address] [place] [address] [facility] [place] [address] PCP - General Internal Medicine 02/05/20 Jaylen Amin MD [address] [address] Rag Boiler Cardiovascular Disease 02/05/20 Robert Crockett MD [address] [address] Physician Cardiac Electrophysiology 03/01/2004/29 Osmel Huerta MD [address] [facility] [address] [place] [address] Surgery, General 09/04/20 Wil Deras MD [address] [place] [address] Cardiovascular Disease 04/30/21 documented as of this encounter
== END 2024-06-19 14:16 | disposition home or self-care (01) ==
PROVIDERS: PCP Internal Medicine; Visit Provider Internal Medicine Hypertension Specialist
DX: N18.4 Chronic kidney disease, stage 4 (severe) (principal); N13.30 Unspecified hydronephrosis
CPT/HCPCS: 99214

== ENCOUNTER → 2024-06-19 13:55 | Outpatient (BNVA) | payer MEDICARE, SELFPAY | PROVIDERS: PCP Internal Medicine; Visit Provider Internal Medicine Hypertension Specialist | DX: I48.0 Paroxysmal atrial fibrillation (principal); E11.22 Type 2 diabetes mellitus with diabetic chronic kidney disease; N18.4 Chronic kidney disease, stage 4 (severe); N13.30 Unspecified hydronephrosis; Z79.01 Long term (current) use of anticoagulants | CPT/HCPCS: 99212 ==

== ENCOUNTER → 2024-06-26 12:58 | Outpatient (REF) | payer MEDICARE, SELFPAY ==
--- NOTE | ~2024-06-26 | NM_ITS ---
EXAMINATION: NM KIDNEY IMAGING CLINICAL INFORMATION: Unspecified hydronephrosis. COMPARISON: Nuclear medicine renal flow with pharmacy intervention 03/15/2024. TECHNIQUE: Following intravenous administration of 10 mCi of technetium 99m DTPA, imaging over the posterior abdomen with attention to kidneys was obtained up to 60 minutes. At 13 minutes 40 mg of IV Lasix was given and further imaging was obtained up to 30 minutes. FINDINGS: Initial images through the first minutes reveals diminished perfusion to the right kidney. There is slight delay but normal perfusion to left kidney compared to abdominal aorta. There is normal left renal cortical uptake without any focal defect. There is progressive activity In left kidney cortex with focal defect initially with slow excretion filling the left renal pelvis up to 30 minutes. Post-Lasix there is no change in the cortical or renal pelvis activity suggestive of no response, similar to previous nuclear medicine study. There is slow and diminished uptake of right kidney with kidney appearing smaller in size. There is progressive excretion of activity in the right kidney pelvis without obstruction post Lasix. Right kidney cortical function is 18.6% and left kidneys 81.4 percent. The T half post Lasix cannot be calculated the left kidney as there is no response. Activity in the right kidney is insufficient to extrapolate information. NM/NM renal flow w pharm int IMPRESSION: Small right kidney with decreased perfusion and cortical function. Post-Lasix activity cannot be extrapolated due to diminished cortical function. Minimally diminished perfusion left kidney with bulk of renal cortical uptake/function up to 81.4%. Previously noted cortical function 88.2% has slightly decreased on the present exam. There is no response to Lasix as there is a flat curve on renogram. It is similar to previous study. Electronically signed by: Ottoniel Acosta MD 06/27/2024 12:54 PM ARIA
--- OUTSIDE RECORDS SUMMARY | 2024-06-26 16:06 | XMS_ITS | Encounter Summary ---
Author Organization [facility] Address [address] [place] [address] Care Team Providers Care Hydrographic Engineer Name Role Phone Gerda Feldman MD Primary Care Provider Jaylen Amin MD Unavailable [phone] Robert Crockett MD Unavailable [phone] Osmel Huerta MD Unavailable [phone] Wil Deras MD Unavailable Encounter Details Date Type Department Care Team (Late st Contact Info) Description 09/05/2020 Scanned Document [address] [place] [address] Provider, Janett, [address] [place] [address] Social History Tobacco Use Types Packs/Day Years [...] on filedocumented in this encounter Care Teams Hydrographic Engineer Relationship Specialty Start Date End Date Gerda Feldman MD [address] [place] [address] [place] [address] PCP - General Internal Medicine 02/05/20 Jaylen Amin MD [address] [address] Fruit Culler Cardiovascular Disease 02/05/20 Robert Crockett MD [address] [address] Physician Cardiac Electrophysiology 03/01/2004/29 Osmel Huerta MD [address] [place] [address] [address] [place] [address] Surgery, General 09/04/20 Wil Deras MD [address] [place] [address] Cardiovascular Disease 04/30/21 documented as of this encounter
--- OUTSIDE RECORDS SUMMARY | 2024-06-26 16:06 | XMS_ITS | Encounter Summary ---
Author Organization [facility] Address [address] [place] [address] Care Team Providers Care Apparel Manager Name Role Phone Gerda Feldman MD Primary Care Provider Jaylen Amin MD Unavailable [phone] Robert Crockett MD Unavailable [phone] Osmel Huerta MD Unavailable [phone] Wil Deras MD Unavailable Reason for Visit * Reason Comments Results Encounter Details Date Type Department Care Team ([facility] st Contact Info) Description 09/01/[address] [address] Robert Crockett MD [address] [place] [address] Results Social History Tobacco Use Types [...] on filedocumented in this encounter Care Teams Apparel Manager Relationship Specialty Start Date End Date Gerda Feldman MD [address] [place] [address] PCP - General Internal Medicine 02/05/20 Jaylen Amin MD [address] [place] [address] Utility Accounts Director Cardiovascular Disease 02/05/20 Robert Crockett MD [address] [place] [address] Physician Cardiac Electrophysiology 03/01/2004/29 Osmel Huerta MD [address] [place] [address] [place] [address] Surgery, General 09/04/20 Wil Deras MD [address] [place] [address] Cardiovascular Disease 04/30/21 documented as of this encounter
--- OUTSIDE RECORDS SUMMARY | 2024-06-26 16:06 | XMS_ITS | Encounter Summary ---
Author Organization [facility] Address [address] [place] [address] Care Team Providers Care Security Shift Supervisor Name Role Phone Gerda Feldman MD Primary Care Provider Jaylen Amin MD Unavailable Robert Crockett MD Unavailable [phone] Osmel Huerta MD Unavailable [phone] Wil Deras MD Unavailable Encounter Details Date Type Department Care Team (Late st Contact Info) Description 03/11/2021 Telephone [facility] Heart & Vascular [place] - Electrophysiology [address] [place] [address] Wil Deras MD [address] [place] [address] Social History Tobacco Use Types Packs/Day Years [...] filedocumented in this encounter Care Teams Security Shift Supervisor Relationship Specialty Start Date End Date Po, Gerda Medley MD [address] [place] [address] PCP - General Internal Medicine 02/05/20 Jaylen Amin MD [address] [address] Continuous Improvement Manager Cardiovascular Disease 02/05/20 Robert Crockett MD [address] [address] Physician Cardiac Electrophysiology 03/01/2004/29 Osmel Huerta MD [address] [place] [address] Drive [address] [place] [address] Surgery, General 09/04/20 Wil Deras MD [address] [place] [address] Cardiovascular Disease 04/30/21 documented as of this encounter
--- OUTSIDE RECORDS SUMMARY | 2024-06-26 16:06 | XMS_ITS | Data Portability ---
Author Organization [facility] - Misael Bardales s, [address] Address [address] [place] [address] Assessment No assessment recorded. Plan of Treatment Reminders Order Date Submit Date Provider Last Modified By Organization Details Last Modified Time Details Appointments None recorded. Lab None recorded. Referral otolaryngol ogist referral - feeling dizzy and vertigo especially waking upm in morning. need further evaluation and treatment. 2022 023 [email or web address] 26 Pratik Rivera MD, [address] [facility] Master, [facility], [place], [address], 3 12:51:32 Procedures None recorded. Surgeries None recorded. Imaging None recorded. Medication Orders meclizine 25 mg tablet 2022 023 [id number], [address] [place], [place], [id number], 19:15:43 Patient TargetsNo targets recorded. Patient Instructions Encounter Date Encounter Id Patient Instructions Last Modified By Organization Details Last Modified Time 06/06/2022 [id number] dizziness: care instructions Not available 06/06/2022 19:14:50 [...] Not available 06/06/2022 19:14:49 Reason for Referral Voice Network Administrator Referral fo r Benign paroxysmal positional vertigo [...] Address Organization Details Recorded Time Essential hypertension 63792633 Active 2022 IRIS COUVERTIE R null, [place] - [facility] 3 18:23:37 Acute kidney injury 77826634 Active 2022 IRIS COUVERTIE R null, [place] - [facility] 3 18:26:17 Insomnia 758002765 Active 2022 IRIS COUVERTIE R null, PA [...] Name and Address Organization Details Recorded Time 539417 Substance with sulfonami de structure and antibacte rial mechanism of action (substanc e) medicatio n Not available Not available Not available 06/06/2022 22816 8003 SNOMED IRIS COUVERTIE R null, [place] - [facility] 3 18:21:58 124586 gabapenti n medicatio n dizziness Not available Not available 06/06/2022 20841 RxNorm IRIS COUVERTIE R null, [place] - [facility] 3 18:22:14 693591 rosuvasta tin medicatio n edema Not available Not available 06/06/2022 28102 2 RxNorm KRISHNA PEREZ [facility] [...] BY MOUTH EVERY DAY DIRECTED BY [facility] 06/06 completed Not Available Not Available [...] Updated DateTime 3 187.96 cm 23.8 kg/m2 49841.5 9 g 100 % 100 % 66 [...] SNOMED-CT Code Diagnosis ICD10 Code Diagnosis Note [id number] [address] [place] [address] 08/09/2016 14:01:54 08/09/2016 14:52:09 [id number] [address] [place] [address] 10/08/2019 14:19:37 10/08/2019 15:46:07 [id number] [address] [facility] [place] [address] 06/14/2020 09:23:40 06/14/2020 09:53:11 [id number] [address] [place] [address] 12/31/2018 10:08:17 12/31/2018 10:53:03 [id number] [address] [facility] [place] [address] 06/08/2016 13:08:05 06/08/2016 14:31:43 [id number] [address] [place] [address] 01/02/2020 17:09:44 01/02/2020 17:43:56 [id number] [address] [place] [address] 12/18/2019 15:16:32 12/18/2019 16:26:12 [id number] [address] [facility] [place] [address] 02/19/2016 13:00:02 02/19/2016 13:30:00 [id number] [address] [facility] [place] [address] 02/13/2016 15:03:43 02/13/2016 15:28:04 [id number] [address] [place] [address] [place] [address] 12/08/2017 08:46:06 12/08/2017 09:50:44 [id number] [address] [place] [address] [place] [address] 03/16/2020 15:48:34 03/16/2020 18:27:17 [id number] [address] [place] [address] [place] [address] 04/30/2020 13:25:07 04/30/2020 18:52:16 [id number] [facility] JA[facility]ES [address] [facility] [place] [address] 06/06/2022 15:33:14 07/27/2022 19:27:19 Left without being seen [id number] 9102 Z53.21 [id number] Leroy Crandall NP [address] [facility] [place] [address] 06/06/2022 17:13:56 06/06/2022 19:17:57 Benign paroxysmal positional vertigo 203147746 H81.10 Health Concerns Section Related Observation LastModified by Organization Detai ls LastModified Time None Recorded Concern Status LastModified by Organization Details LastModified Time None Recorded Advance Directives Directive None Recorded Payers Encounter Date Sequence Insurance Name Policy Number Policy Shelby Covered Member ID Shelby Member ID Guarantor Name 03/16/2020 1 [place] [employer] Eliazar Quispe [id number] Eliazar Quispe 03/16/2020 2 [place] [id number] Eliazar Quispe [id number] Eliazar Quispe 04/30/2020 1 [place] [employer] Eliazar Quispe [id number] Eliazar Berriosinger 04/30/2020 2 [place] [id number] Eliazar Quispe [id number] Eliazar Berriosinger 06/14/2020 1 [place] [employer] Eliazar Berriosinger [id number] Eliazar Berriosinger 06/14/2020 2 [place] [id number] Eliazar Berriosinger [id number] Eliazar Berriosinger 06/06/2022 1 [place] [employer] Eliazar Quispe [id number] Eliazar Berriosinger 06/06/2022 2 [place] [id number] Eliazar Berriosinger [id number] Eliazar Berriosinger 06/06/2022 1 [place] [employer] Eliazar Quispe [id number] Eliazar Berriosinger 06/06/2022 2 [place] [id number] Eliazar Quispe [id number] Eliazar Quispe Notes Date Note Type [...] Crandall NP [address] [place], [address], [place] - [facility] 06/06/2022 19:16:09
--- OUTSIDE RECORDS SUMMARY | 2024-06-26 16:07 | XMS_ITS | Clinical Summary ---
Author Organization [facility] Address [address] [place] [address] Phone Care Team Providers Care Comber Fixer Name Role Phone Physician, No Pcp Primary [...] age to complete this topic Insurance MEDICARE [facility] Care Teams Comber Fixer Relationship Specialty Start Date End Date Physician, No Pcp PCP - General 10/12/21
--- OUTSIDE RECORDS SUMMARY | 2024-06-26 16:07 | XMS_ITS | Continuity of Care Document ---
Author Organization [facility], [facility], [facility] Address [address] [facility] [address] [place] [address] Care Team Providers Care Centrifugal Drier Operator Name Role Phone JORDON OROZCO Clinical Cardiac Electrophysiolo gist FRANCA VEAL Music Adapter [phone] ИВАН YANES Primary Care Provider [phone] HAN JONES Cardiac Surgeon CRISTINA LEONARD Fellmongery Worker ALF CHAMBERS Physician Ui Ux Web Developer [phone] JOSELINE FULTON Urologist Assessment Encounter Date Assessment [...] he will be following up with his supervisor slashing department regarding alternative procedures, possibly a Watchman to [...] For Internal Use Only, Do Not Delete/merge, [id number] 06/01/2024 16:16:49 Medication Orders None recorded. Patient TargetsNo targets recorded. Patient Instructions Encounter Date Encounter Id Patient Instructions Last Modified By Organization Details Last Modified Time 06/01/2024 [id number] I spent a total of {{# of minutes 35#}} minutes on the same date of service providing uxxz-th-knbx and vjb-dszr-qk-face patient care. Not available 06/01/2024 16:16:54 Reason [...] For Internal Use Only, Do Not Delete/merge, [id number] 06/01/2024 16:16:01 06/01/19 elect rocar diogr am No observ ation record ed. [email or web address] Not Available 06/04 08:55:40 06/06/19 25 04/13/2024 US, echoc ardio gram, trans esoph ageal No observ ation record ed. [place] [facility] [place], [place], [address], 06/06/2024 09:41:52 06/11/1906/01/2024 devic e check (PROC ) No observ ation record ed. [email or web address] Not Available 2024 16:11:44 Result Notes None recorded. Problems Name Problem SNOMED Code Status Onset Date Resolution Date Notes Provider Name and Address Organization Details Recorded Time Atrial flutter 1685216 Active Jane guajardo [facility] 2 14:43:55 Persisten t atrial fibrillat ion 756636745 [facility] 2 14:44:26 Rupture of tendon 342568051 Active Nontrauma tic L ankle Jane guajardo CT - Johann [facility] 2 14:45:26 History of cardiover vita 479467960627 08 [address] [facility] [place] [facility] 2 14:45:57 Cerebrova scular accident 276654741 Active Jane guajardo [place] - [facility] 2 14:46:07 Dyspnea 697575449 Active Jane guajardo [place] - [facility] 2 14:46:19 Insomnia 556947195 Active Jane Rodartedridge null, [facility] 2 14:46:34 Nerve injury 06634109 Active Right Arm Jane Monidge null, [facility] 2 14:47:21 Arthritis 8324469 Active Right Foot Jane Rodartedridge null, [facility] 2 14:47:56 Cardiac arrhythmi a 290927221 Active 2022 Arden Cosme null, [facility] 3 13:53:39 Palpitati ons 56241245 Active 2022 ARCHANA CARIAS [address] [place] [address], [place], [place], [address] [place] [address] 8, [facility] 3 14:57:10 Paroxysma l atrial fibrillat ion 100307128 Active 2022 ARCHANA CARIAS [address] [place] [address], [place], [place], [address] [place] [address] 8, [facility] 3 14:59:34 Ventricul ar premature beats 29009003 Active 2022 ARCHANA CARIAS [address] [place] [address], [place], [place], [address] [place] [address] 8, [facility] 3 14:59:56 Left atrial appendage absent 558446470 Active 2022 s/p clipping of GABRIEL at time of MV repair, 2021 ARCHANA Cooper [address] [place] [address], [place], [address], [facility] 4 09:17:42 Left bundle branch hemiblock 4895627 Active [address] [place] [address], [place], [address], [facility] 3 15:03:55 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 XT MRI DEVICE SERIAL NUMBER [id number] G DEVICE TYPE Pacemaker DATE OF IMPLANT 28-Nov-19 22 pt transferr ed into 's remote clinic from [place] 12/13/2023 Phoebe Mccracken RN [address], [place], [address], [place] - [facility] 4 12:20:39 Nonsustai marcelo ventricul ar tachycard ia 714566486 Active 2023 ARCHANA Cooper [address] F[facility], [place], [address], [place] - [facility] 4 12:44:39 Problem Notes None recorded. Procedures Surgical History Date Name Laterality Status Provider Name and Address Organization Details Recorded Time 06/01/19 25 In-person Programming of Pacemaker: Dual Chamber CPT 78286,26 completed AR[address] Cooper [address] [place] [address], [place], [address], [place] - [facility] 06/01/2024 16:12:50 05/14/19 25 insertion of stent into urethra completed Joi loya [place] - [facility] 06/01/2024 15:31:08 12/05/19 24 In-person Programming of Pacemaker: Dual Chamber CPT 21587,26 [address] Cooper [address], [place], [address], [place] - [facility] 12/05/2023 16:20:31 06/06/19 24 In-person Programming of Pacemaker: Dual Chamber CPT 42693,26 [address] Cooper [address], [place], [address], [place] - [facility] 06/07/2023 12:27:03 11/27/19 23 In-person Programming of Pacemaker: Dual Chamber CPT 99046,26 completed ARCHANA Cooper [address], [place], [address], [place] - [facility] 11/26/2022 16:11:31 05/27/19 23 In-person Programming of Pacemaker: Dual Chamber CPT 60404,26 completed ARCHANA CARIAS [address], [place], [address], [place] - [facility] 05/27/2022 15:17:02 04/25/19 23 Hernia repair: Incisional completed Jane ALLEN - [facility] 12/05/2023 15:26:37 02/05/20 22 In-person Programming of Pacemaker: Dual Chamber CPT 38425,26 completed Jordon Orozco MD [address], [place], [address], [place] - [facility] 02/04/2022 17:05:28 11/28/19 22 cardiac pacemaker procedure completed Han Mills RN [address], [place], [address], [place] - [facility] 02/04/2022 16:16:27 11/13/19 22 Maze procedure completed Han Mills RN [address] [place] [address], [place], [address], [place] - [facility] 11/24/2021 13:27:31 11/13/19 22 atrial appendage excision completed Han Mills RN [address] [place] [address], [place], [address], [place] - [facility] 11/24/2021 13:27:59 04/25/19 22 Other completed Jane ALLEN - [facility] 12/05/2023 15:26:37 04/25/19 22 Pacemaker completed Jane ALLEN [facility] 12/05/2023 15:26:37 03/16/20 21 catheter ablation of arrhythmogenic focus completed Jane ALLEN [facility] 09/23/2021 14:50:10 05/07/19 21 catheter ablation of arrhythmogenic focus completed Jane ALLEN Johann [facility] 09/23/2021 14:49:31 05/07/19 21 catheter ablation of arrhythmogenic focus completed Jane ALLEN Johann [facility] 09/23/2021 14:49:45 04/25/19 21 Hernia repair: Inguinal completed Janeyovani Wills [facility] 12/05/2023 15:26:37 04/25/19 19 Cataract removal / Lens implant completed Janeyovani ALLEN Johann [facility] 12/05/2023 15:26:37 04/25/19 13 operative procedure on cartilage completed Janeyovani ALLEN Johann [facility] 09/23/2021 14:51:05 04/25/19 13 Shoulder joint surgery completed Janeyovani ALLEN Johann [facility] 09/23/2021 14:51:34 04/25/19 13 Shoulder repair completed Janeyovani ALLEN Johann [facility] 12/05/2023 15:26:37 04/25/19 02 LASIK completed Janeyovani ALLEN Johann [facility] 12/05/2023 15:26:37 Tonsillectomy completed Janeyovani ALLEN Johann [facility] 09/23/2021 14:52:05 repair of mitral valve completed Han Mills RN [address] [place] [address],[address], [place], [address], ALEJANDRO Johann [facility] 11/24/2021 13:31:59 Imaging Results Imaging Date Name Status LastModified by Organization Details LastModified Time 06/01/2024 electrocardiogram completed YOUSUF In-Hous e Results For Internal Use Only, Do Not Delete/merge, [id number] 06/01/2024 16:16:01 Procedure Notes None recorded. Medical Equipment None Reported. Allergies Allergen ID Allergen Name Allergen Category Reaction Reaction Severity Criticality Documentation Date Start Date Code Code System Note Provider Name and Address Organization Details Recorded Time 733065 metoprolo l Not available dizziness palpitati ons severe Not available Not available 09/23/2021 6918 RxNorm ALEJANDRO Ma [facility] 2 14:56:20 510782 Substance with sulfonami de structure and antibacte rial mechanism of action (substanc e) medicatio n Not available Not available Not available 09/23/2021 49936 8003 SNOMED Unsur e Child moreland react ion Jane Shukri guajardo, [facility], [facility] 2 14:57:02 691682 gabapenti n medicatio n other moderate Not available 02/04/2022 99811 RxNorm Beni ce & gate Han Mills RN [address], [place], [address], [facility] 2 16:11:28 501172 Product containin g 3-hydroxy -3-methyl glutaryl- coenzyme A reductase inhibitor (product) medicatio n muscle cramps severe Not available 02/04/2022 51622 009 SNOMED Han Mills RN [address], [place], [address], [facility], [facility] 2 16:12:03 108862 amoxicill in medicatio n rash Not available Not available 11/26/2022 723 RxNorm David guajardo, [facility], [facility] 3 15:16:47 Medications Name Sig Start Date [...] TABLETS BY MOUTH EVERY DAY DIRECTED BY [facility] 11/26 completed Not Available Not [...] Updated DateTime 5 187.96 cm 25 kg/m2 07085.5 1 g 16 /min 74 /min 98 % 98 % 118 mm[Hg] 68 mm[Hg] Joi loya [facility] 5 15:34:54 Social History Question Answer Notes LastModified by Organizat ion Details LastModified Time Tobacco Smoking Status Former Smoker quit greater than 40 years Annette Cuellar RN [address] [facility],[address], [place], [address], [facility] 09/28/2021 13:21:29 Do You Have An Advance Directive? Yes [email or web address] Information not available 06/06/2023 What Is Your Level Of Alcohol Consumption? Occasional Information not available 11/26/2022 How Many Times Per Week Do You Consume Alcohol? Less Than 1 Time Per Week Information not available 06/06/2023 Is Blood Transfusion Acceptable In An Emergency? Yes [email or web address] Information not available 06/06/2023 What Is Your Level Of Caffeine Consumption? Moderate 1-2 Cups Of Coffee Information not available 06/06/2023 What Type Of Diet Are You Following? CARDIAC Information not available 09/28/2021 When Did You Quit Smoking? 16+yearssincel astcigarette Information not available 06/06/2023 Do You Have A Computer Support Analyst (loved One Involved In Your Care)? No Information not available 11/26/2022 Do You Feel Safe At Home? Yes Information not available 09/28/2021 Over The Last 3 Months, Have You Struggled With Housing? No [email or web address] Information not available 12/05/2023 Over The Last 3 Months, Have You Struggled With Access To Food? No [email or web address] Information not available 12/05/2023 Over The Last 3 Months, Have You Struggled With Utilities? No [email or web address] Information not available 12/05/2023 Over The Last 3 Months, Have You Struggled With Transportation? No [email or web address] Information not available 12/05/2023 Over The Last 3 Months, Have You [place] Unsafe In Your Relationship? No [email or web address] Information not available 12/05/2023 What Was The Date Of Your Most Recent Tobacco Screening? 06/01/2024 [email or web address] Information not available 06/01/2024 How Many Children Do You Have? 2 Information not available 09/28/2021 Do You Use Any Illicit Or Recreational Drugs? No [email or web address] Information not available 06/06/2023 Has Tobacco Cessation Counseling Been Provided? No [email or web address] Information not available 12/05/2023 How Many Years Have You Smoked Tobacco? 15 Information not available 06/06/2023 Do You Or Have You Ever Used Any Other Forms Of Tobacco Or Nicotine? No Information not available 06/06/2023 Sex: Male Functional Status Question Answer Note LastModified by Organizat ion Details LastModified Time What is your exercise level? Occasional [email or web address] Information not available 06/06/2023 Mental Status None recorded. Family History Relationship Description Onset Age of this Age Resolved Age Notes LastModified by Organization Details LastModified Time Mother Dementia 97 [email or web address] Not availa ble 09/23/2021 14:55:32 Father Family history of stroke 87 Not available 04/2021 14:55:47 Notes:11/26/22 Medical History Condition Response Gout N Atrial [...] SNOMED-CT Code Diagnosis ICD10 Code Diagnosis Note [id number] ARCHANA Cooper Cardiac EP TEMP Gerry [address] [facility], [address] [place] [address] 06/01/2024 15:17:26 06/04/2024 11:25:01 Cardiac arrhythmia 394508768 I49.9 Cardiac pa cemaker in situ 512303435 Z95.0 Atrial flutter 2808558 I 48.92 Left atria l appendage absent 284615544 Q20.8 Health Concerns Section Related Observation LastModified by Organization Detai ls LastModified Time None Recorded Concern Status LastModified by Organization Details LastModified Time None Recorded Payers Encounter Date Sequence Insurance Name Policy Number Policy Shelby Covered Member ID Shelby Member ID Guarantor Name 06/01/2024 1 MEDICARE [place]: NGS Eliazar Quispe [id number] Eliazar Quispe 06/01/2024 2 [place] [id number] Eliazar Quispe [id number] Eliazar Quispe Notes Date Note Type [...] excellent health. 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 He was referred to Dr. White at [facility]. As far as I can tell, [...] that time.More recently, he was admitted to [facility] on 01/18/20 with increasing shortness of [...] that admission, he had an echocardiogram at [facility] done on 01/16/20. 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 He has a son Han who lives in [place].I would note that one of the possibilities [...] distribution.His preadmission lab studies were drawn at [facility]. His vitamin B12 level was [...] also showed 2500 PACs. We reviewed his [employer] ari which showed episodes of possible A. [...] any cardiac complaints. He was using his [employer] ari routinely which was showing sinus rhythm. A Holter monitor done prior to our visit showed a significant decline in his PVC burden and PAC burden. We did not make any changes to his medication. I asked that he follow-up with his supervisor slashing department regarding the mitral regurgitation noted on his echocardiogram.He did have a hernia repair shortly after that visit.However in December 2020 he was found to have atrial flutter on his [employer] ari which was also confirmed on an EKG.He was brought to the EP lab on March 16, [address] Deras and underwent a successful ablation of mitral valve flutter with both epicardial and endocardial ablation. He was seen at [facility] in April 2021. He denied any recurrence of arrhythmias or palpitations. He was using his cardia monitor daily which did not show any atrial fibrillation or rapid heartbeats. He reported occasional chest discomfort and we asked him to follow-up with his supervisor slashing department. We also felt he should have another [...] by Dr. Castillo Aguillon. This is a [employer]ista.comtronic dual-chamber unit which is an Whitestone XT DR device. The device is programmed [...] and he had a follow-up with his supervisor slashing department. PVC counters showed 75/h. He had an [...] disease. He had close follow-up with his mechanical press operator. We noted frequent PVCs on his device [...] We also left a message with his supervisor slashing department to consider a CESILIA to see if the left atrial appendage is completely walled off as he had a resection at the time of his MVR/MAZE. Since that time, he reports having a CESILIA through his supervisor slashing department which apparently showed a leak at the left atrial appendage clipping site. The patient contacted our office for our recommendations. Given his elevated MTZ5KQ1-IAQn score of 5, I recommended that he restart Eliquis. He declined going back on the medication and understood there is a risk of stroke. We also recommended he see a structural supervisor slashing department to see if he is a candidate for a Watchman procedure depending on the size of the left atrial appendage leak. I offered to send him to a physician in [place] but since he lives in [place], he wanted to find someone in his area. He comes in today for follow-up. He is feeling well and denies palpitations, chest pain or shortness of breath. He is seeing his supervisor slashing department next month and will be seeing someone regarding the left atrial appendage leak as well. ARCHANA Cooper [address] [place] [address],[address], [place], [address], [facility], [facility] 06/01/2024 16:17:21
--- OUTSIDE RECORDS SUMMARY | 2024-06-26 16:07 | XMS_ITS | Encounter Summary ---
Author Organization [facility] Address [address] [place] [address] Care Team Providers Care Log Handler Name Role Phone Gerda Feldman MD Primary Care Provider Jaylen Aimn MD Unavailable Robert Crockett MD Unavailable [phone] Osmel Huerta MD Unavailable [phone] Wil Deras MD Unavailable Encounter Details Date Type Department Care Team (Late st Contact Info) Description 05/22/2020 Scanned Document [address] [place] [address] Provider, Janett, [address] [place] [address] Social History Tobacco Use Types Packs/Day Years [...] on filedocumented in this encounter Care Teams Log Handler Relationship Specialty Start Date End Date Gerda Feldman MD [address] [place] [address] [place] [address] PCP - General Internal Medicine 02/05/20 Jaylen Amin MD [address] [address] Java Scala Developer Cardiovascular Disease 02/05/20 Robert Crockett MD [address] [address] Physician Cardiac Electrophysiology 03/01/2004/29 Osmel Huerta MD [address] [place] [address] Drive [address] [place] [address] Surgery, General 09/04/20 Wil Deras MD [address] [place] [address] Cardiovascular Disease 04/30/21 documented as of this encounter
--- OUTSIDE RECORDS SUMMARY | 2024-06-26 16:07 | XMS_ITS | Encounter Summary ---
Author Organization [facility] Address [address] [place] [address] Care Team Providers Care Channel Opener Outsoles Name Role Phone Gerda Feldman MD Primary Care Provider [phone] Jaylen Amin MD Unavailable [phone] Robert Crockett MD Unavailable [phone] Osmel Huerta MD Unavailable Wil Deras MD Unavailable Reason for Visit * Reason Comments Appointment Encounter Details Date Type Department Care Team (Late st Contact Info) Description 01/08/2021 Telephone [facility] Heart & Vascular [place] - Electrophysiology [address] [place] [address] Wil Deras MD [address] [place], [place] [id number] Appointment Social History Tobacco Use Types Packs/Day [...] on filedocumented in this encounter Care Teams Channel Opener Outsoles Relationship Specialty Start Date End Date Gerda Feldman MD [address] [place] [address] [facility] [place] [address] PCP - General Internal Medicine 02/05/20 Jaylen Amin MD [address] [address] Manager Group Cardiovascular Disease 02/05/20 Robert Crockett MD [address] [address] Physician Cardiac Electrophysiology 03/01/2004/29 Osmel Huerta MD [address] [facility] [address] [place] [address] Surgery, General 09/04/20 Wil Deras MD [address] [place] [address] Cardiovascular Disease 04/30/21 documented as of this encounter
--- OUTSIDE RECORDS SUMMARY | 2024-06-26 16:07 | XMS_ITS | Encounter Summary ---
Author Organization [facility] Address [address] [place] [address] Care Team Providers Care Assembler Metal Building Name Role Phone Gerda Feldman MD Primary Care Provider Jaylen Amin MD Unavailable Robert Crockett MD Unavailable [phone] Osmel Huerta MD Unavailable [phone] Wil Deras MD Unavailable Encounter Details Date Type Department Care Team (Late st Contact Info) Description 02/15/2020 Scanned Document [address] [place] [address] Provider, Janett, [address] [place] [address] Social History Tobacco Use Types Packs/Day Years [...] documented as of this encounter Care Teams Assembler Metal Building Relationship Specialty Start Date End Date Gerda Feldman MD [address] [place] [address] [place] [address] PCP - General Internal Medicine 02/05/20 Jaylen Amin MD [address] [address] Coal Inspector Cardiovascular Disease 02/05/20 Robert Crockett MD [address] [address] Physician Cardiac Electrophysiology 03/01/2004/29 Osmel Huerta MD [address] [place] [address] Drive [address] [place] [address] Surgery, General 09/04/20 Wil Deras MD [address] [place] [address] Cardiovascular Disease 04/30/21 documented as of this encounter
--- OUTSIDE RECORDS SUMMARY | 2024-06-26 16:07 | XMS_ITS | Encounter Summary ---
Author Organization Formerly [facility] Address [address] [place] [address] Care Team Providers Care Earth Science Teacher Name Role Phone Gerda Feldman MD Primary Care Provider Jaylen Amin MD Unavailable Robert Crockett MD Unavailable [phone] Osmel Huerta MD Unavailable [phone] Wil Deras MD Unavailable Encounter Details Date Type Department Care Team (Late st Contact Info) Description 02/18/2020 Scanned Document [address] [place] [address] Provider, Janett, [address] [place] [address] Social History Tobacco Use Types Packs/Day Years [...] documented as of this encounter Care Teams Earth Science Teacher Relationship Specialty Start Date End Date Gerda Feldman MD [address] [place] [address] [place] [address] PCP - General Internal Medicine 02/05/20 Jaylen Amin MD [address] [address] Furniture Manager Cardiovascular Disease 02/05/20 Robert Crockett MD [address] [address] Physician Cardiac Electrophysiology 03/01/2004/29 Osmel Huerta MD [address] [place] [address] Drive [address] [place] [address] Surgery, General 09/04/20 Wil Deras MD [address] [place] [address] Cardiovascular Disease 04/30/21 documented as of this encounter
--- OUTSIDE RECORDS SUMMARY | 2024-06-26 16:07 | XMS_ITS | Encounter Summary ---
Author Organization [facility] Address [address] [place] [address] Care Team Providers Care Federal Java Developer Name Role Phone Gerda Feldman MD Primary Care Provider [phone] Jaylen Amin MD Unavailable [phone] Robert Crockett MD Unavailable [phone] Osmel Huerta MD Unavailable [phone] Wil Deras MD Unavailable Reason for Visit * Reason Comments Advice Only Encounter Details Date Type Department Care Team ([facility] st Contact Info) Description 05/16/[address] [address] Robert Crockett MD [address] [place] [address] [address] [place] [address] Advice Only Social History Tobacco [...] was very grateful. He stated he called [facility] and they havehim on a cancellation list [...] need to be cleared by his general case management associate. Patient stated his case management associate will not clear him until he sees [...] Patient states he booked his holter at [facility] in [place] since he lives close but it is not scheduled until 06/05. Patient would like to know if he needs to reschedule the 06/06appointment. Please advise. documented in this encounter Plan of Treatment Not on file documented as of this encounter Visit Diagnoses Not on filedocumented in this encounter Care Teams Federal Java Developer Relationship Specialty Start Date End Date Po, Gerda Medley MD [address] [place] [address] [place] [address] PCP - General Internal Medicine 02/05/20 Jaylen Amin MD [address] [address] Cesspool Cleaner Cardiovascular Disease 02/05/20 Robert Crockett MD [address] [address] Physician Cardiac Electrophysiology 03/01/2004/29 Osmel Huerta MD [address] [place] [address] Drive [address] [place] [address] Surgery, General 09/04/20 Wil Deras MD [address] [place] [address] Cardiovascular Disease 04/30/21 documented as of this encounter
--- OUTSIDE RECORDS SUMMARY | 2024-06-26 16:07 | XMS_ITS | Clinical Summary ---
Author Organization [facility] Address [address] [place] [address] Phone Care Team Providers Care Vault Worker Name Role Phone Gerda Feldman MD Primary Care Provider [phone] Allergies Active Allergy Reactions Criticality Noted Date [...] (11/05/2021): Added automatically from request for surgery [id number] Non-traumatic tendon rupture 01/24/2020 11/05/2021 Overview (11/05/2021): [...] age to complete this topic Insurance MEDICARE [facility] MEDICARE [facility] Care Teams Vault Worker Relationship Specialty Start Date End Date Gerda Feldman MD [facility] [place] [address] [place], [place] PCP - General Internal Medicine 10/21/21
--- OUTSIDE RECORDS SUMMARY | 2024-06-26 16:07 | XMS_ITS | Encounter Summary ---
Author Organization [facility] Address [address] [place] [address] Care Team Providers Care Automobile Body Repair Supervisor Name Role Phone Gerda Feldman MD Primary Care Provider Jaylen Amin MD Unavailable [phone] Robert Crockett MD Unavailable [phone] Osmel Huerta MD Unavailable [phone] Wil Deras MD Unavailable Encounter Details Date Type Department Care Team (Late st Contact Info) Description 02/15/[address] [address] Robert Crockett MD [address] [place] [address] [address] [place] [address] Social History Tobacco Use Types [...] documented as of this encounter Care Teams Automobile Body Repair Supervisor Relationship Specialty Start Date End Date Gerda Feldman MD [address] [place] [address] [place] [address] PCP - General Internal Medicine 02/05/20 Jaylen Amin MD [address] [address] Footwear Sales Leader Cardiovascular Disease 02/05/20 Robert Crockett MD [address] [address] Physician Cardiac Electrophysiology 03/01/2004/29 Osmel Huerta MD [address] [place] [address] [address] [place] [address] Surgery, General 09/04/20 Wil Deras MD [address] [place] [address] Cardiovascular Disease 04/30/21 documented as of this encounter
--- OUTSIDE RECORDS SUMMARY | 2024-06-26 16:07 | XMS_ITS | Encounter Summary ---
Author Organization [facility] Address [address] [place] [address] Care Team Providers Care Greeter Name Role Phone Gerda Feldman MD Primary Care Provider Jaylen Amin MD Unavailable Robert Crockett MD Unavailable [phone] Osmel Huerta MD Unavailable [phone] Wil Deras MD Unavailable Encounter Details Date Type Department Care Team (Late st Contact Info) Description 02/21/2020 Scanned Document [address] [place] [address] Provider, Janett, [address] [place] [address] Social History Tobacco Use Types Packs/Day Years [...] documented as of this encounter Care Teams Greeter Relationship Specialty Start Date End Date Gerda Feldman MD [address] [place] [address] [place] [address] PCP - General Internal Medicine 02/05/20 Jaylen Amin MD [address] [address] Molybdenum Steamer Operator Cardiovascular Disease 02/05/20 Robert Crockett MD [address] [address] Physician Cardiac Electrophysiology 03/01/2004/29 Osmel Huerta MD [address] [place] [address] Drive [address] [place] [address] Surgery, General 09/04/20 Wil Deras MD [address] [place] [address] Cardiovascular Disease 04/30/21 documented as of this encounter
--- OUTSIDE RECORDS SUMMARY | 2024-06-26 16:07 | XMS_ITS | Data Portability ---
Author Organization [facility], [facility], Primary Care [facility] Address [address] [place] [address] Care Team Providers Care Approver Name Role Phone JORDON OROZCO Clinical Cardiac Electrophysiolo gist FRANCA VELA Acquisition Lead ИВАН YANES Primary Care Provider [phone] HAN JONES Cardiac Surgeon CRISTINA LEONARD Chief Orthoptist ANGELITA CHAMBERS Physician Night Warehouse Manager [phone] JOSELINE FULTON Urologist Assessment Encounter Date Assessment [...] rhythm sinus bradycardia. 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 Device mode AAIR <=> DDDR 60-130 bpm. Lead parameters are stable. MIDDLEWARE ARCHITECT <0.1%, AP 93.1%. No atrial or ventricular [...] were made. He will refer to his economic developer for any blood pressure control guidelines. 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 The other 2 episodes were [...] a stress test. He is seeing his economic developer on December 02. The patient will bring this up with his economic developer and I will send him a copy [...] I will discuss this with the patient's economic developer to see if they can arrange for this where Mr. Quispe lives in [place]. We will await PET scan and genetics. I will see him back in the office in 6 months. I left a message on the patient's cell phone after our visit to discuss the above. I also left a message with his economic developer asking him to call me to discuss [...] hour. His monitor is followed by his economic developer. He continues to have frequent PVCs as [...] will obtain his recent echo from his economic developer office. His main concern is fatigue, anemia and chronic kidney disease. He has follow-up with nephrology next week. I have asked him to call us if he develops any palpitations. He has close follow-up with his economic developer. I would like to see him back [...] he will be following up with his economic developer regarding alternative procedures, possibly a Watchman to [...] EP Follow Up 45 2024 03:15P ARCHANA Bnaks Not available Not available Not available Lab None recorded. Referral None recorded. Procedures None recorded. Surgeries None recorded. Imaging electroca rdiogram 2024 025 In-House Results, For Internal Use Only, Do Not Delete/merge, [id number] 06/01/2024 16:16:49 electroca rdiogram 2023 024 In-House Results, For Internal Use Only, Do Not Delete/merge, [id number] 12/05/2023 16:24:44 electroca rdiogram 2023 024 In-House Results, For Internal Use Only, Do Not Delete/merge, [id number] 06/06/2023 16:39:34 electroca rdiogram 2022 023 In-House Results, For Internal Use Only, Do Not Delete/merge, [id number] 11/26/2022 16:14:21 electroca rdiogram 2022 023 In-House Results, For Internal Use Only, Do Not Delete/merge, [id number] 05/27/2022 15:29:01 Medication Orders None recorded. Patient TargetsNo targets recorded. Patient Instructions Encounter Date Encounter Id Patient Instructions Last Modified By Organization Details Last Modified Time 05/27/2022 [id number] - From an electrophysiology perspective, we feel it is low risk for you to discontinue taking Coumadin - We are STOPPING your Amiodarone - Please refer to your economic developer's recommendations regarding your blood pressure recommendations - Follow up in 6 months for routine follow up Not available 05/27/2022 14:36:02 I spent a total of {{# of minutes 25#}} minutes on the same date of service providing zdlj-ai-oego and xzg-cgaf-oh-face patient care. Not available 05/27/2022 14:28:45 11/26/2022 [id number] I spent a total of {{# of minutes 35#}} minutes on the same date of service providing jmox-gl-aimc and swv-gcwf-ws-face patient care. Not available 11/26/2022 15:59:24 06/06/2023 [id number] I spent a total of {{# of minutes 35#}} minutes on the same date of service providing jkvl-rs-lxny and sgm-adpb-ou-face patient care. Not available 06/06/2023 16:54:15 12/05/2023 [id number] I spent a total of {{# of minutes 35#}} minutes on the same date of service providing xiwe-jq-hjhc and ymv-oitg-xf-face patient care. Not available 12/05/2023 16:23:56 06/01/2024 [id number] I spent a total of {{# of minutes 35#}} minutes on the same date of service providing ugxl-mo-aurp and aus-vlfa-tq-face patient care. Not available 06/01/2024 16:16:54 Reason for Referral None Reported. Results Created Date Observation Date Name Description Value Unit Range Abnormal Flag Note LastModifiedBy Organization Detail LastModifiedTime 05/27/1905/27/2022 j carlos beckmangr am No observ ation record ed. In-House Results For Internal Use Only, Do Not Delete/merge, [id number] 05/27/2022 15:25:52 05/27/19 elect rocar diogr am No observ ation record ed. [email or web address] Not Available 05/2022 14:03:56 05/28/19 23 05/27/2022 elect rocar diogr am No observ ation record ed. [email or web address] In-House Results For Internal Use Only, Do Not Delete/merge, [id number] 05/28/2022 11:23:34 05/28/19 23 05/27/2022 ignacio regalado ion (PROC ) No observ ation record ed. [email or web address] Not Available 2022 11:27:20 11/27/19 23 11/26/2022 elect rocar diogr am No observ ation record ed. YOUSUF In-House Results For Internal Use Only, Do Not Delete/merge, [id number] 11/26/2022 16:14:20 11/27/19 23 elect rocar diogr am No observ ation record ed. [email or web address] Not Available 10/2022 06:56:31 12/06/19 23 11/26/2022 devic e check (PROC ) No observ ation record ed. [email or web address] Not Available 2022 23:01:26 06/02/19 24 12/16/2022 trans -thor acic echoc ardio gram (TTE) (PROC ) No observ ation record ed. [facility] [address] [place] [address], [place], [address], 06/02/2023 13:58:09 06/06/19 24 06/06/2023 elect rocar diogr am No observ ation record ed. YOUSUF In-House Results For Internal Use Only, Do Not Delete/merge, [id number] 06/06/2023 16:39:33 06/06/19 24 elect rocar diogr am No observ ation record ed. Not Available 2023 16:43:35 06/19/19 24 06/08/2023 devic e check (PROC ) No observ ation record ed. [email or web address] Not Available 2023 11:37:54 06/22/19 24 06/22/2023 PET, heart No observ ation record ed. [email or web address] [facility] [address] [place], [place], [address], 06/23/2023 09:16:18 12/05/19 24 12/05/2023 elect rocar diogr am No observ ation record ed. YOUSUF In-House Results For Internal Use Only, Do Not Delete/merge, [id number] 12/05/2023 16:25:03 12/05/19 24 elect rocar diogr am No observ ation record ed. Not Available 2023 16:25:04 12/06/19 24 11/29/2023 US, echoc ardio gram No observ ation record ed. [email or web address] Not Available 10:41:26 12/11/19 24 12/05/2023 devic [...] For Internal Use Only, Do Not Delete/merge, [id number] 06/01/2024 16:16:01 06/01/19 elect rocar diogr am No observ ation record ed. [email or web address] Not Available 06/04 08:55:40 06/06/19 25 04/13/2024 US, echoc ardio gram, trans esoph ageal No observ ation record ed. [facility] [address] [place], [place], [address], 06/06/2024 09:41:52 06/11/19 25 06/01/2024 devic e check (PROC ) No observ ation record ed. [email or web address] Not Available 2024 16:11:44 Result Notes None recorded. Problems Name Problem SNOMED Code Status Onset Date Resolution Date Notes Provider Name and Address Organization Details Recorded Time Atrial flutter 2237749 Active ALEJANDRO Ma - [facility] 2 14:43:55 Persisten t atrial fibrillat ion 776949778 Active Janeyovani RodarteEs[place] null, [place] [facility] 2 14:44:26 Rupture of tendon 674606068 Active Nontrauma tic L ankle Jane Monidge null, [place] [facility] 2 14:45:26 History of cardiover vita 686852899079 08 Active Janeyovani RodarteShukri null, [facility] 2 14:45:57 Cerebrova scular accident 024359848 Active Jane Shukri null, [place] - [facility] 2 14:46:07 Dyspnea 902954309 Active Jane Shukri null, [facility] 2 14:46:19 Insomnia 316336395 Active Jane [place] null, [facility] 2 14:46:34 Nerve injury 44870942 Active Right Arm Jane Rodartedridge null, [facility] 2 14:47:21 Arthritis 5100541 Active Right Foot Jane Shukri null, [facility] 2 14:47:56 Cardiac arrhythmi a 040995919 Active 2022 Arden Cosme null, [facility] 3 13:53:39 Palpitati ons 44689413 Active 2022 ARCHANA CARIAS [address], [place], [address], [place] - [facility] 3 14:57:10 Paroxysma l atrial fibrillat ion 726849331 Active 2022 ARCHANA CARIAS [address], [place], [address], [place] - [facility] 3 14:59:34 Ventricul ar premature beats 00360805 Active 2022 ARCHANA CARIAS [address], [place], [address], [place] - [facility] 3 14:59:56 Left atrial appendage absent 518170362 Active 2022 s/p clipping of GABRIEL at time of MV repair, 2021 ARCHANA Cooper [address] [place] [address], [place], [address], [place] - [facility] 4 09:17:42 Left bundle branch hemiblock 1209312 Active [address] [place] [address], [place], [address], [place] - [facility] 3 15:03:55 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 XT MRI DEVICE SERIAL NUMBER [id number] DEVICE TYPE Pacemaker DATE OF IMPLANT 28-Nov-19 22 pt transferr ed into 's remote clinic from [place] 12/13/2023 Phoebe Mccracken RN [address] [place] [address], [place], [address], [place] - [facility] 4 12:20:39 Nonsustai marcelo ventricul ar tachycard ia 971957426 Active [address] [place] [address], [place], [address], [place] - [facility] 4 12:44:39 Problem Notes None recorded. Procedures Surgical History Date Name Laterality Status Provider Name and Address Organization Details Recorded Time 06/01/19 25 In-person Programming of Pacemaker: Dual Chamber CPT 58035,26 completed ARCHANA Cooper [address] [place] [address], [place], [address], [place] - [facility] 06/01/2024 16:12:50 05/14/19 25 insertion of stent into urethra completed Joi loya [facility] 06/01/2024 15:31:08 12/05/19 24 In-person Programming of Pacemaker: Dual Chamber CPT 99535,26 completed ARCHANA Cooper [address] FLO[facility], [place], [address], [facility] 12/05/2023 16:20:31 06/06/19 24 In-person Programming of Pacemaker: Dual Chamber CPT 37681,26 completed ARCHANA Cooper [address] FLOOR, [place], [address], [facility] - [facility] 06/07/2023 12:27:03 11/27/19 23 In-person Programming of Pacemaker: Dual Chamber CPT 32801,26 completed ARCHANA Cooper [address] [place] [address], [place], [address], [facility] 11/26/2022 16:11:31 05/27/19 23 In-person Programming of Pacemaker: Dual Chamber CPT 73070,26 completed ARCHANA CARIAS [address] [place] [address], [place], [address], [facility] 05/27/2022 15:17:02 04/25/19 23 Hernia repair: Incisional completed Jane Watt [facility] 12/05/2023 15:26:37 02/05/20 22 In-person Programming of Pacemaker: Dual Chamber CPT 00099,26 completed Jordon Orozco MD [address] FLO[facility], [place], [address], [facility] 02/04/2022 17:05:28 11/28/19 22 cardiac pacemaker procedure completed Han Mills RN [address] FLO[facility], [place], [address], [place] [facility] 02/04/2022 16:16:27 11/13/19 22 Maze procedure completed Han Mills RN [address], [place], [address], ALEJANDRO - [facility] 11/24/2021 13:27:31 11/13/19 22 atrial appendage excision completed Han Mills RN [address], [place], [address], ALEJANDRO - [facility] 11/24/2021 13:27:59 04/25/19 22 Other completed Jane ALLEN [facility] 12/05/2023 15:26:37 04/25/19 22 Pacemaker completed Janeyovani ALLEN [facility] 12/05/2023 15:26:37 03/16/20 21 catheter ablation of arrhythmogenic focus completed Janeyovani ALLEN [facility] 09/23/2021 14:50:10 05/07/19 21 catheter ablation of arrhythmogenic focus completed Jane [facility] 09/23/2021 14:49:31 05/07/19 21 catheter ablation of arrhythmogenic focus completed Janeyovani ALLEN [facility] 09/23/2021 14:49:45 04/25/19 21 Hernia repair: Inguinal completed Janeyovani [facility] 12/05/2023 15:26:37 04/25/19 19 Cataract removal / Lens implant completed Janeyovani [facility] 12/05/2023 15:26:37 04/25/19 13 operative procedure on cartilage completed Janeyovani [facility] 09/23/2021 14:51:05 04/25/19 13 Shoulder joint surgery completed aJne [facility] 09/23/2021 14:51:34 04/25/19 13 Shoulder repair completed Jane [facility] 12/05/2023 15:26:37 04/25/19 02 LASIK completed Janeyovani [facility] 12/05/2023 15:26:37 Tonsillectomy completed Janeyovani ALLEN [facility] 09/23/2021 14:52:05 repair of mitral valve completed Han Mills, RN [address] [facility],[address], [place], [address], [place] - [facility] 11/24/2021 13:31:59 Imaging Results Imaging Date Name Status LastModified by Organization Details LastModified Time 05/27/2022 electrocardiogram completed In-Hous e Results For Internal Use Only, Do Not Delete/merge, [id number] 05/27/2022 15:25:52 05/27/2022 electrocardiogram completed Infor mation not available 05/27/2022 14:03:56 05/27/2022 electrocardiogram completed [email or web address] In-Hous e Results For Internal Use Only, Do Not Delete/merge, [id number] 05/28/2022 11:23:34 05/27/2022 pacemaker interrogation (PROC) completed [email or web address] Information not available 05/28/2022 11:27:20 11/26/2022 electrocardiogram completed [email or web address] In-Hous e Results For Internal Use Only, Do Not Delete/merge, [id number] 11/26/2022 16:14:20 11/26/2022 electrocardiogram completed Infor mation not available 11/29/2022 06:56:31 11/26/2022 device check (PROC) completed [email or web address] Infor mation not available 12/05/2022 23:01:26 12/16/2022 trans-thoracic echocardiogram (TTE) (PROC) completed [address] [facility] [address] [place] [address], [address], 06/02/2023 13:58:09 06/06/2023 electrocardiogram completed YOUSUF In-Hous e Results For Internal Use Only, Do Not Delete/merge, [id number] 06/06/2023 16:39:33 06/06/2023 electrocardiogram completed [email or web address] Inform[facility] tion not available 06/06/2023 16:43:35 06/08/2023 device check (PROC) completed [email or web address] Infor mation not available 06/19/2023 11:37:54 06/22/2023 PET, heart completed [email or web address] [facility] [address] [place] [address] [address] [place], [place], [address], 06/23/2023 09:16:18 12/05/2023 electrocardiogram completed [email or web address] In-Hous e Results For Internal Use Only, Do Not Delete/merge, [id number] 12/05/2023 16:25:03 12/05/2023 electrocardiogram completed Informa tion not available 12/05/2023 16:25:04 11/29/2023 US, echocardiogram completed [email or web address] Inf ormation not available 12/06/2023 10:41:26 12/05/2023 [...] For Internal Use Only, Do Not Delete/merge, [id number] 06/01/2024 16:16:01 06/01/2024 electrocardiogram completed [email or web address] Informa tion not available 06/04/2024 08:55:40 04/13/2024 US, echocardiogram, transesophageal completed [facility] [address] [place] [address] [address] [place], [place], [address], 06/06/2024 09:41:52 06/01/2024 device check (PROC) completed [email or web address] Infor mation not available 06/11/2024 16:11:44 Procedure Notes None recorded. Medical Equipment None Reported. Allergies Allergen ID Allergen Name Allergen Category Reaction Reaction Severity Criticality Documentation Date Start Date Code Code System Note Provider Name and Address Organization Details Recorded Time 505447 metoprolo l Not available dizziness palpitati ons severe Not available Not available 09/23/2021 6918 RxNorm Jane guajardo, [facility] 2 14:56:20 727358 Substance with sulfonami de structure and antibacte rial mechanism of action (substanc e) medicatio n Not available Not available Not available 09/23/2021 22345 8003 SNOMED Unsur e Child moreland react ion Jane Shukri guajardo, [facility] 2 14:57:02 700158 gabapenti n medicatio n other moderate Not available 02/04/2022 81366 RxNorm Beni ce & gate Han Mills RN [address], [place], [address], [facility] 2 16:11:28 157141 Product containin g 3-hydroxy -3-methyl glutaryl- coenzyme A reductase inhibitor (product) medicatio n muscle cramps severe Not available 02/04/2022 39999 009 SNOMED Han Mills RN [address], [place], [address], [facility] 2 16:12:03 265552 amoxicill in medicatio n rash Not available Not available 11/26/2022 723 RxNorm David Evelyn guajardo, [facility] 3 15:16:47 Medications Name Sig [...] TABLETS BY MOUTH EVERY DAY DIRECTED BY [facility] 11/26 completed Not Available Not [...] Updated DateTime 3 187.96 cm 23.6 kg/m2 98438 g 16 /min 98 % 98 % 67 /min 108 mm[Hg] 70 mm[Hg] Arden Cosme [facility] 3 13:53:30 Date Recorded Body height Body mass index (BMI) Body weight Systolic blood pressure Diastolic blood pressure Provider Name and Address Organization Details Last Updated DateTime 11/26/2022 187.96 cm 23.1 kg/m2 33849.63 g 112 mm[Hg] 64 mm[Hg] David Rivas [facility] 3 15:22:35 Date Recorded Body height Body mass index (BMI) Body weight Respiratory rate Heart rate Oxygen saturation Oxygen saturation in Arterial blood by Pulse oximetry Systolic blood pressure Diastolic blood pressure Provider Name and Address Organization Details Last Updated DateTime 4 187.96 cm 23.1 kg/m2 44225.6 3 g 16 /min 62 /min 99 % 99 % 110 mm[Hg] 62 mm[Hg] Lona Arellano [facility] 4 15:20:27 Date Recorded Body height Body mass index (BMI) Body weight Respiratory rate Body temperature Oxygen saturation Oxygen saturation in Arterial blood by Pulse oximetry Heart rate Systolic blood pressure Diastolic blood pressure Provider Name and Address Organization Details Last Updated DateTime 4 187.96 cm 24.4 kg/m2 00869.5 5 g 16 /min 99.1 [degF] 99 % 99 % 55 /min 126 mm[Hg] 70 mm[Hg] Jane Watt [facility] 4 15:37:28 Date Recorded Body height Body mass index (BMI) Body weight Respiratory rate Heart rate Oxygen saturation Oxygen saturation in Arterial blood by Pulse oximetry Systolic blood pressure Diastolic blood pressure Provider Name and Address Organization Details Last Updated DateTime 5 187.96 cm 25 kg/m2 80068.5 1 g 16 /min 74 /min 98 % 98 % 118 mm[Hg] 68 mm[Hg] Joi [email or web address] [facility] 15:34:54 Social History Question Answer Notes LastModified by Organizat ion Details LastModified Time Tobacco Smoking Status Former Smoker quit greater than 40 years Annette Cuellar RN [address] [facility],[address], [place], [address], [facility] 09/28/2021 13:21:29 Do You Have An Advance Directive? Yes Information not available 06/06/2023 What Is Your Level Of Alcohol Consumption? Occasional Information not available 11/26/2022 How Many Times Per Week Do You Consume Alcohol? Less Than 1 Time Per Week Information not available 06/06/2023 Is Blood Transfusion Acceptable In An Emergency? Yes [email or web address] Information not available 06/06/2023 What Is Your Level Of Caffeine Consumption? Moderate 1-2 Cups Of Coffee Information not available 06/06/2023 What Type Of Diet Are You Following? CARDIAC Information not available 09/28/2021 When Did You Quit Smoking? 16+yearssincel astcigarette Information not available 06/06/2023 Do You Have A Comptroller (loved One Involved In Your Care)? No Information not available 11/26/2022 Do You Feel Safe At Home? Yes Information not available 09/28/2021 Over The Last 3 Months, Have You Struggled With Housing? No [email or web address] Information not available 12/05/2023 Over The Last 3 Months, Have You Struggled With Access To Food? No [email or web address] Information not available 12/05/2023 Over The Last 3 Months, Have You Struggled With Utilities? No [email or web address] Information not available 12/05/2023 Over The Last 3 Months, Have You Struggled With Transportation? No [email or web address] Information not available 12/05/2023 Over The Last 3 Months, Have You Alna Unsafe In Your Relationship? No [email or web address] Information not available 12/05/2023 What Was The Date Of Your Most Recent Tobacco Screening? 06/01/2024 [email or web address] Information not available 06/01/2024 How Many Children Do You Have? 2 Information not available 09/28/2021 Do You Use Any Illicit Or Recreational Drugs? No [email or web address] Information not available 06/06/2023 Has Tobacco Cessation Counseling Been Provided? No [email or web address] Information not available 12/05/2023 How Many Years Have You Smoked Tobacco? 15 Information not available 06/06/2023 Do You Or Have You Ever Used Any Other Forms Of Tobacco Or Nicotine? No Information not available 06/06/2023 Sex: Male Functional Status Question Answer Note LastModified by Organizat ion Details LastModified Time What is your exercise level? Occasional [email or web address] Information not available 06/06/2023 Mental Status None recorded. Family History Relationship Description Onset Age of this Age Resolved Age Notes LastModified by Organization Details LastModified Time Mother Dementia 97 Not availa ble 09/23/2021 14:55:32 Father Family history of stroke 87 [email or web address] Not available 04/2021 14:55:47 Notes:11/26/22 JG Medical [...] SNOMED-CT Code Diagnosis ICD10 Code Diagnosis Note [id number] Devorah Pan APRN Cardiac [facility] [address] [place] [address] 09/28/2021 12:47:43 09/28/2021 14:08:29 Cardiac arrhythmia 094150625 I49.9 Paroxysmal atrial fibrillation 034309761 I48.0 Cardiomyopathy 81405986 I42.9 [id number] Jordon Orozco MD Cardiac [facility] [address] [place] [address] 02/04/2022 15:47:13 02/04/2022 17:17:51 Palpitations 04138614 R00.2 [id number] ARCHANA CARIAS Cardiac [facility] [address] [place] [address] 05/27/2022 13:34:44 05/27/2022 14:36:21 Cardiac arrhythmia 828526831 I49.9 Palpitations 14646164 R0 0.2 History of radiofrequency ablation operation for arrhythmia 768390923 Z98.890 Paroxysmal atrial fibrillation 861321084 I48.0 Ventricula r premature beats 10301544 I49.3 History of maze procedure for atrial fibrillation 602733056 Z98.890 History of repair of mitral valve 218193891 Z98.890 Left atria l appendage absent 184979697 Q20.8 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 80204543 I44.4 Cardiomyopathy 25194528 I42.9 [id number] ARCHANA Cooper Cardiac EP [facility] [address] [address] 11/26/2022 14:57:35 11/26/2022 16:03:00 Cardiac arrhythmia 306230826 I49.9 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 81251202 I44.4 Persistent atrial fibrillation 498761818 I48.19 Cardiac pa cemaker in situ 710003818 Z95.0 [id number] Angelita Coulis, PA Cardiac EP [facility] [place] 9 [facility],[address] [address] 06/06/2023 14:43:25 06/06/2023 16:06:44 Cardiac arrhythmia 694014902 I49.9 Atrial flutter 5741318 I 48.92 Cardiac pa cemaker in situ 174597223 Z95.0 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 76369169 I44.4 Nonsustain ed monomorphic ventricular tachycardia 3348582092 I47.29 [id number] Angelita Chambers PA Cardiac EP TEMP [place] 9 [facility],[address] [address] 12/05/2023 15:13:26 12/05/2023 16:18:04 Cardiac arrhythmia 299336581 I49.9 Atrial flutter 5813819 I 48.92 Cardiac pa cemaker in situ 672488803 Z95.0 Nonsustain ed ventricular tachycardia 826323215 I47.20 [id number] ARCHANA Cooper Cardiac EP TEMP Harrells 9 [facility],[address] [address] 06/01/2024 15:17:26 06/04/2024 11:25:01 Cardiac arrhythmia 216954777 I49.9 Cardiac pa cemaker in situ 521271769 Z95.0 Atrial flutter 3454391 I 48.92 Left atria l appendage absent 169338402 Q20.8 Health Concerns Section Related Observation LastModified by Organization Detai ls LastModified Time None Recorded Concern Status LastModified by Organization Details LastModified Time None Recorded Advance Directives Directive Y: Payers Encounter Date Sequence Insurance Name Policy Number Policy Shelby Covered Member ID Shelby Member ID Guarantor Name 05/27/2022 1 MEDICARE B-CT: NGS Eliazar Mckinney Jose Enrique [id number] Eliazar Jose Enrique 05/27/2022 2 [place] [id number] Eliazar Mckinney Jose Enrique [id number] Eliazar Jose Enrique 11/26/2022 1 MEDICARE B-CT: NGS Eliazar Mckinney Jose Enrique [id number] Eliazar Quispe 11/26/2022 2 [place] [id number] Eliazar Quispe [id number] Eliazar Quispe 06/06/2023 1 MEDICARE B-CT: NGS Eliazar Quispe [id number] Eliazar Quispe 06/06/2023 2 [place] [id number] Eliazar Quispe [id number] Eliazar Quispe 12/05/2023 1 MEDICARE B-CT: NGS Eliazar Quispe [id number] 24 Eliazar Quispe 12/05/2023 2 [place] [id number] Eliazar Quispe [id number] Eliazar Quispe 06/01/2024 1 MEDICARE B-CT: NGS Eliazar Quispe [id number] Eliazar Quispe 06/01/2024 2 [place] [id number] Eliazar Quispe [id number] Eliazar Quispe Notes Date Note Type [...] excellent health. 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 He was referred to Dr. White at . As far as I can tell, multiple [...] that time.More recently, he was admitted to [facility] on 01/18/20 with increasing shortness of [...] that admission, he had an echocardiogram at [facility] done on 01/16/20. 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 He has a son Han who lives in [place].I would note that one of the possibilities [...] distribution.His preadmission lab studies were drawn at [facility]. His vitamin B12 level was [...] also showed 2500 PACs. We reviewed his 24h00 ari which showed episodes of possible A. [...] any cardiac complaints. He was using his SilverPusha ari routinely which was showing sinus rhythm. A Holter monitor done prior to our visit showed a significant decline in his PVC burden and PAC burden. We did not make any changes to his medication. I asked that he follow-up with his economic developer regarding the mitral regurgitation noted on his echocardiogram.He did have a hernia repair shortly after that visit.However in December 2020 he was found to have atrial flutter on his Windcentralea ari which was also confirmed on an [...] We asked him to follow-up with his economic developer regarding need for further work-up. His EKG was unchanged compared to prior tracings and his cardiac examination was within normal limits with the exception of occasional ectopic beats. We deferred a repeat echocardiogram to his economic developer given the findings of mitral regurgitation on his last echocardiogram. He remained anticoagulated with Eliquis for his [id number] score of 4. We discussed the importance [...] like getting out of bed. Despite his economic developer increasing his carvedilol dose he has not [...] the procedure. We will defer to his economic developer for longitudinal monitoring of his mitral regurgitation. [...] amiodarone. I spoke to Dr. Vela his economic developer 10/01/2021. It was felt that he might [...] he is going to consult with a radio communication coordinator. Overall again however he feels significantly improved and is getting back to himself. I would note that I did have an echocardiogram today at [facility] we will be getting the results. He [...] very active. He will be seeing his economic developer next week. He asked that we verify [...] is on Coumadin for anticoagulation. ARCHANA CARIAS [address] [place], [place] [address]liz,[address], [place], [address], [facility], [facility] 05/27/2022 15:28:36 11/26/2022 text/html To review, [...] excellent health. 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 He was referred to Dr. White at . As far as I can tell, multiple [...] that time.More recently, he was admitted to [facility] on 01/18/20 with increasing shortness of [...] that admission, he had an echocardiogram at [facility] done on 01/16/20. 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 He has a son Han who lives in [place].I would note that one of the possibilities [...] distribution.His preadmission lab studies were drawn at [facility]. His vitamin B12 level was [...] also showed 2500 PACs. We reviewed his Windcentralea ari which showed episodes of possible A. [...] any cardiac complaints. He was using his 24h00 ari routinely which was showing sinus rhythm. A Holter monitor done prior to our visit showed a significant decline in his PVC burden and PAC burden. We did not make any changes to his medication. I asked that he follow-up with his economic developer regarding the mitral regurgitation noted on his echocardiogram.He did have a hernia repair shortly after that visit.However in December 2020 he was found to have atrial flutter on his Windcentralea ari which was also confirmed on an [...] we asked him to follow-up with his economic developer. We also felt he should have another [...] remote monitoring is being followed by his economic developer. ARCHANA Cooper [address] [facility],[address], [place], [address], [facility], [facility] 11/26/2022 16:26:06 06/06/2023 text/html To review, [...] excellent health. 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 He was referred to Dr. White at . As far as I can tell, multiple [...] that time.More recently, he was admitted to [facility] on 01/18/20 with increasing shortness of [...] that admission, he had an echocardiogram at [facility] done on 01/16/20. 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 He has a son Han who lives in [place].I would note that one of the possibilities [...] distribution.His preadmission lab studies were drawn at [facility]. His vitamin B12 level was [...] also showed 2500 PACs. We reviewed his 24h00 ari which showed episodes of possible A. [...] any cardiac complaints. He was using his 24h00 ari routinely which was showing sinus rhythm. A Holter monitor done prior to our visit showed a significant decline in his PVC burden and PAC burden. We did not make any changes to his medication. I asked that he follow-up with his economic developer regarding the mitral regurgitation noted on his echocardiogram.He did have a hernia repair shortly after that visit.However in December 2020 he was found to have atrial flutter on his Windcentralea ari which was also confirmed on an [...] we asked him to follow-up with his economic developer. We also felt he should have another [...] and he had a follow-up with his economic developer. PVC counters showed 75/h. He had an [...] to his discomfort. He is seeing his economic developer tomorrow. He has a home monitor which is being followed by his economic developer. ARCHANA Cooper [address] [place] [address],[address], [place], [address], [facility], [facility] 06/08/2023 10:07:34 12/05/2023 text/html To review, [...] excellent health. 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 He was referred to Dr. White at . As far as I can tell, multiple [...] that time.More recently, he was admitted to [facility] on 01/18/20 with increasing shortness of [...] that admission, he had an echocardiogram at [facility] done on 01/16/20. 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 He has a son Hna who lives in [place].I would note that one of the possibilities [...] distribution.His preadmission lab studies were drawn at [facility]. His vitamin B12 level was [...] also showed 2500 PACs. We reviewed his 24h00 ari which showed episodes of possible A. [...] any cardiac complaints. He was using his 24h00 ari routinely which was showing sinus rhythm. A Holter monitor done prior to our visit showed a significant decline in his PVC burden and PAC burden. We did not make any changes to his medication. I asked that he follow-up with his economic developer regarding the mitral regurgitation noted on his echocardiogram.He did have a hernia repair shortly after that visit.However in December 2020 he was found to have atrial flutter on his Windcentralea ari which was also confirmed on an [...] we asked him to follow-up with his economic developer. We also felt he should have another [...] and he had a follow-up with his economic developer. PVC counters showed 75/h. He had an [...] breath, palpitations, near-syncope or syncope. ARCHANA Cooper [address] [place], [place] [address]liz.,[address], [place], [address], [facility], [facility] 12/05/2023 16:24:46 06/01/2024 text/html To review, Mr. [...] excellent health. 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 He was referred to Dr. White at . As far as I can tell, multiple [...] that time.More recently, he was admitted to [facility] on 01/18/20 with increasing shortness of [...] that admission, he had an echocardiogram at [facility] done on 01/16/20. 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 He has a son Han who lives in [place].I would note that one of the possibilities [...] distribution.His preadmission lab studies were drawn at [facility]. His vitamin B12 level was [...] also showed 2500 PACs. We reviewed his 24h00 ari which showed episodes of possible A. [...] any cardiac complaints. He was using his 24h00 ari routinely which was showing sinus rhythm. A Holter monitor done prior to our visit showed a significant decline in his PVC burden and PAC burden. We did not make any changes to his medication. I asked that he follow-up with his economic developer regarding the mitral regurgitation noted on his echocardiogram.He did have a hernia repair shortly after that visit.However in December 2020 he was found to have atrial flutter on his 24h00 ari which was also confirmed on an [...] we asked him to follow-up with his economic developer. We also felt he should have another [...] and he had a follow-up with his economic developer. PVC counters showed 75/h. He had an [...] disease. He had close follow-up with his radio communication coordinator. We noted frequent PVCs on his [...] We also left a message with his economic developer to consider a CESILIA to see if the left atrial appendage is completely walled off as he had a resection at the time of his MVR/MAZE. Since that time, he reports having a CESILIA through his economic developer which apparently showed a leak at the left atrial appendage clipping site. The patient contacted our office for our recommendations. Given his elevated [id number] score of 5, I recommended that he restart Eliquis. He declined going back on the medication and understood there is a risk of stroke. We also recommended he see a structural economic developer to see if he is a candidate for a Watchman procedure depending on the size of the left atrial appendage leak. I offered to send him to a physician in [place] but since he lives in [place], he wanted to find someone in his area. He comes in today for follow-up. He is feeling well and denies palpitations, chest pain or shortness of breath. He is seeing his economic developer next month and will be seeing someone regarding the left atrial appendage leak as well. ARCHANA Cooper Radha Lucas,[address], [place], [address], [facility], [facility] 06/01/2024 16:17:21
--- OUTSIDE RECORDS SUMMARY | 2024-06-26 16:07 | XMS_ITS | Encounter Summary ---
Author Organization [facility] Address [address] [place] [address] Care Team Providers Care Proof Machine Operator Name Role Phone Gerda Feldman MD Primary Care Provider [phone] Jaylen Amin MD Unavailable Osmel Huerta MD Unavailable [phone] Wil Deras MD Unavailable Encounter Details Date Type Department Care Team (Late st Contact Info) Description 07/21/2021 Scanned Document [address] [address] Provider, MD Janett [address] [place] [address] Social History Tobacco Use Types Packs/Day Years [...] on filedocumented in this encounter Care Teams Proof Machine Operator Relationship Specialty Start Date End Date Gerda Feldman MD [address] [place] [address] PCP - General Internal Medicine 02/05/20 Jaylen Amin MD [address] [place] [address] Airline Pilot Cardiovascular Disease 02/05/20 Osmel Huerta MD [address] [place] [address] [address] [place] [address] Surgery, General 09/04/20 Wil Deras MD [address] [place] [address] Cardiovascular Disease 04/30/21 documented as of this encounter
--- OUTSIDE RECORDS SUMMARY | 2024-06-26 16:07 | XMS_ITS | Encounter Summary ---
Author Organization [facility] Address [address] [place] [address] Care Team Providers Care Well Driller Helper Name Role Phone Gerda Feldman MD Primary Care Provider Jaylen Amin MD Unavailable Robert Crockett MD Unavailable [phone] Osmel Huerta MD Unavailable Wil Deras MD Unavailable Encounter Details Date Type Department Care Team (Late st Contact Info) Description 02/15/2020 Scanned Document [address] [place] [address] Provider, Janett, [address] [place] [address] Social History Tobacco Use Types Packs/Day Years [...] documented as of this encounter Care Teams Well Driller Helper Relationship Specialty Start Date End Date Gerda Feldman MD [address] [place] [address] [place] [address] PCP - General Internal Medicine 02/05/20 Jaylen Amin MD [address] [address] Optical Dispenser Cardiovascular Disease 02/05/20 Robert Crockett MD [address] [address] Physician Cardiac Electrophysiology 03/01/2004/29 Osmel Huerta MD [address] [place] [address] Drive [address] [place] [address] Surgery, General 09/04/20 Wil Deras MD [address] [place] [address] Cardiovascular Disease 04/30/21 documented as of this encounter
--- OUTSIDE RECORDS SUMMARY | 2024-06-26 16:07 | XMS_ITS | Encounter Summary ---
Author Organization [facility] Address [address] [place] [address] Care Team Providers Care Boat Joiner Helper Name Role Phone Gerda Feldman MD Primary Care Provider Jaylen Amin MD Unavailable Robert Crockett MD Unavailable [phone] Osmel Huerta MD Unavailable [phone] Wil Deras MD Unavailable Encounter Details Date Type Department Care Team (Late st Contact Info) Description 02/15/2020 Abstract [facility]- [address] [place] [phone] [address] Social History Tobacco Use Types Packs/Day Years [...] documented as of this encounter Care Teams Boat Joiner Helper Relationship Specialty Start Date End Date Gerda Feldman MD [address] [place] [address] [place] [address] PCP - General Internal Medicine 02/05/20 Jaylen Amin MD [address] [address] Esthetician Cardiovascular Disease 02/05/20 Robert Crockett MD [address] [address] Physician Cardiac Electrophysiology 03/01/2004/29 Osmel Huerta MD [address] [place] [address] [address] [place] [address] Surgery, General 09/04/20 Wil Deras MD [address] [place] [address] Cardiovascular Disease 04/30/21 documented as of this encounter
--- OUTSIDE RECORDS SUMMARY | 2024-06-26 16:07 | XMS_ITS | Encounter Summary ---
Author Organization [facility] Address [address] [place] [address] Care Team Providers Care Fashion Coordinator Name Role Phone Gerda Feldman MD Primary Care Provider [phone] Jaylen Amin MD Unavailable [phone] Robert Crockett MD Unavailable [phone] Osmel Huerta MD Unavailable [phone] Wil Deras MD Unavailable Encounter Details Date Type Department Care Team (Late st Contact Info) Description 02/13/[address] [facility] Heart & Vascular [place] - Electrophysiology [address] [place] [address] Wil Deras MD [address] [place] [address] Social History Tobacco Use Types Packs/Day Years [...] on filedocumented in this encounter Care Teams Fashion Coordinator Relationship Specialty Start Date End Date Gerda Feldman MD [address] [place] [address] [place] [address] PCP - General Internal Medicine 02/05/20 Jaylen Amin MD [address] [address] Quilting Machine Helper Cardiovascular Disease 02/05/20 Robert Crockett MD [address] [address] Physician Cardiac Electrophysiology 03/01/2004/29 Osmel Huerta MD [address] [place] [address] [address] [place] [address] Surgery, General 09/04/20 Wil Deras MD [address] [place] [address] Cardiovascular Disease 04/30/21 documented as of this encounter
--- OUTSIDE RECORDS SUMMARY | 2024-06-26 16:07 | XMS_ITS | Clinical Summary ---
Author Organization [facility] Address [address] [place] [address] Care Team Providers Care Director Global Medical Affairs Name Role Phone Gerda Feldman MD Primary Care Provider Jaylen Amin MD Unavailable [phone] Osmel Huerta MD Unavailable [phone] Wil Deras MD Unavailable Allergies Active [...] Take 400 mcg by mouth daily. Active Hartland-3 Fatty Acids (FISH OIL PO) Take by mouth daily. Active Active Problems Problem Noted Date Diagnosed Date Atrial flutter 02/03/2021 Overview (02/03/2021): Added automatically from request for surgery [id number] Persistent atrial fibrillation 05/07/2020 Tendon rupture, nontraumatic [...] PM 03/16/2021 6:29 AM Care Teams Director Global Medical Affairs Relationship Specialty Start Date End Date Po, Gerda Medley MD [address] [place] [address] PCP - General Internal Medicine 02/05/20 Jaylen Amin MD [address] [place] [address] Milieu Therapist Cardiovascular Disease 02/05/20 Osmel Huerta MD [address] [place] [address] Drive [address] [place] [address] Surgery, General 09/04/20 Wil Deras MD [address] [place] [address] Cardiovascular Disease 04/30/21
--- OUTSIDE RECORDS SUMMARY | 2024-06-26 16:07 | XMS_ITS | Encounter Summary ---
Author Organization [facility] Address [address] [place] [address] Care Team Providers Care Investigation Manager Name Role Phone Gerda Feldman MD Primary Care Provider [phone] Jaylen Amin MD Unavailable [phone] Robert Crockett MD Unavailable [phone] Osmel Huerta MD Unavailable [phone] Wil Deras MD Unavailable Encounter Details Date Type Department Care Team (Late st Contact Info) Description 05/06/2020 Prep for Surgery [facility] Heart & Vascular [place] - Electrophysiology [address] [place] [address] [place] [address] oSphie Gtz, HOME IMPROVEMENT INSTALLER [address] [address] Social History Tobacco Use Types [...] documented as of this encounter Care Teams Investigation Manager Relationship Specialty Start Date End Date Gerda Feldman MD [address] [place] [address] [facility] [place] [address] PCP - General Internal Medicine 02/05/20 Jaylen Amin MD [address] [address] Mental Health Associate Cardiovascular Disease 02/05/20 Robert Crockett MD [address] [address] Physician Cardiac Electrophysiology 03/01/2004/29 Osmel Huerta MD [address] [place] [address] [address] [place] [address] Surgery, General 09/04/20 Wil Deras MD [address] [place] [address] Cardiovascular Disease 04/30/21 documented as of this encounter
== END ==
LOC: HO.NUCMED 12:58
PROVIDERS: PCP Internal Medicine; Visit Provider Urology
DX: N13.30 Unspecified hydronephrosis (principal)
CPT/HCPCS: 78708; A9539; J1940

== ENCOUNTER → 2024-06-26 13:00 | Outpatient (BNV) | payer MEDICARE, SELFPAY | PROVIDERS: PCP Internal Medicine; Visit Provider Radiology Diagnostic Radiology | DX: N13.30 Unspecified hydronephrosis (principal) | CPT/HCPCS: 78708 ==

== ENCOUNTER 2024-07-09 13:58 | Outpatient (AMB) | payer MEDICARE, SELFPAY ==
--- NOTE | 2024-07-09 14:16 | MHC.PC.OV ---
Vital Signs 07/09/24 14:17 Height 6 ft 2 in Weight 198 lb 2 oz BMI 25.4 BP 120/68 Blood Pressure Location Lt brachial Position Sitting Pulse 74 Pulse Source Pulse Oximeter Temp 97.3 F Temp Source Temporal Artery Scan Pulse Oximetry (%) 100 Oxygen Delivery Method Room Air Intake Visit Reasons: a fib Intake Note: Patient is here to follow up on Afib. Back End Engineer Required: No Parcel Post Weigher: Not Required per policy Accompanied by: Self / Same As Patient Allergies gabapentin Allergy (Severe, Verified 07/09/24 14:17) Dizziness atorvastatin Allergy (Intermediate, Verified 07/09/24 14:17) Muscle cramps rosuvastatin Allergy (Intermediate, Verified 07/09/24 14:17) Muscle cramps Sulfa (Sulfonamide Antibiotics) [SULFA(SULFONAMIDE ANTIBIOTICS)] Allergy (Mild, Verified 07/09/24 14:17) RASH metoprolol Adverse Reaction (Severe, Verified 07/09/24 14:17) Chest Pain, sob, dizziness amoxicillin Adverse Reaction (Mild, Verified 07/09/24 14:17) Rash Tobacco use date assessed: 07/09/24 Fall risk assessment: No Falls in past year Last assessed Fall Risk: 07/09/24 Dental Screening Dental Screen Date: 07/09/24 Did you have a dental visit in the last 12 months?: Yes Did you have a dental problem in the last 6 months where you did not have access to dental care?: No Was dental information given to patient?: Patient has dentist [facility] Medical History History of cardiac pacemaker Vertigo 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 Atherosclerotic cardiovascular disease Normally functioning cardiac pacemaker present Acute kidney injury Generalized anxiety disorder Osteoarthritis of knees, bilateral Obstructive sleep apnea (adult) (pediatric) DVT (deep venous thrombosis) Nasal polyp Asthma Nonrheumatic mitral valve regurgitation Cardiomyopathy Cerebral infarction due to embolism of unspecified cerebral artery PVC (premature ventricular contraction) Anxiety Allergic rhinitis Insomnia Congestive heart failure Gastroesophageal reflux disease Impaired glucose tolerance Congestive heart failure Lupus anticoagulant positive Paroxysmal atrial fibrillation Hypercholesterolemia Surgical History H/O hernia repair Ventral hernia Status post mitral valve repair History of cardiac radiofrequency ablation (~03/16/21) Status post arthroscopy of left knee History of cardioversion (~01/17/20) S/P medial meniscectomy of left knee History of arthroscopy of left knee Hx of repair of right rotator cuff History of tonsillectomy Family History Father HTN (hypertension) CVA (cerebral vascular accident) Mother Skin cancer Maternal Uncle Colon cancer Son No problems noted. Daughter No problems noted. Family/Other Breast cancer Paternal Uncle Colon cancer Social History Housing: House Are you a primary adult care manager to a significant other at home: No Do you presently have visiting nurse or other home services: No Alcohol intake: never Patient Tobacco Use Status: Former Tobacco user Tobacco use type: Cigarette Years Smoked: 12 +/- e-Cigarette/Vaping Use: Never Used Second Hand Smoke Exposure: Yes service: No Current occupational status: retired Cognitive needs: No Hearing needs: No Vision needs: No Questionnaire PHQ-9 Over the last 2 weeks, how often have you been bothered by any of the following problems? 1. Little interest or pleasure in doing things: not at all 2. Feeling down, depressed, or hopeless: not at all 3. Trouble falling or staying asleep, or sleeping too much: not at all 4. Feeling tired or having little energy: not at all 5. Poor appetite or overeating: not at all 6. Feeling bad about yourself - or that you are a failure or have let yourself or your family down: not at all 7. Trouble concentrating on things, such as reading the newspaper or watching television: not at all 8. Moving or speaking so slowly that other people could have noticed. Or the opposite - being so fidgety or restless that you have been moving around a lot more than usual: not at all 9. Thoughts that you would be better off or of hurting yourself in some way: not at all Total score: 0 Depression Screening Interpretation: Negative Depression Screening Done: Yes Source: Developed by Drs. Branden Michael, Sherry Solorio, Frederic Brown and colleagues, with an educational mary from [employer]. Thrive Questionnaire Date Thrive assessed: 07/09/24 I am a: Patient What is your living situation today?: I have a steady place to live Within the past 12 months, did the food you bought not last and you didn't have the money to get more?: Never true Within the past 12 months, did you worry whether your food would run out before you got money to buy more?: Never true Do you have trouble paying for medicines?: No Do you have trouble getting transportation to medical appointments?: No Do you have trouble paying your heating and electricity bill?: No Do you have trouble taking care of your child, family member or friend?: No Do you have trouble with day-to-day activities such as bathing, preparing meals, shopping, managing finances, etc.?: No Are you currently unemployed and looking for a job?: No Are you interested in more education?: No Please select the resources that you would like help with: None Currently or been in a relationship where the following occur: No concerns reported THRIVE Score: 0 AUDIT C Alcohol Use Questionnaire (AUDIT-C) 1. How often do you have a drink containing alcohol?: Monthly or less 2. How many drinks containing alcohol do you have on a typical day when you are drinking?: 1 or 2 3. How often do you have six or more drinks on one occasion?: Never Total Score: 1 VAUGHN-7 AMB Questionnaire VAUGHN-7 Date VAUGHN - 7 assessed: 07/09/24 Feeling nervous, anxious, or on edge: 0 = Not at all Not being able to stop or control worryin = Not at all Worrying too much about different things: 0 = Not at all Trouble relaxin = Not at all Being so restless that it is hard to sit still: 0 = Not at all Becoming easily annoyed or irritable: 0 = Not at all Feeling afraid as if something awful might happen: 0 = Not at all Total VAUGHN-7 score (0-4 normal; 5-9 mild; 10-14 moderate; 15-21 severe): 0 Source: Developed by Drs. Branden Michael, Sherry Solorio, Frederic Brown and colleagues, with an educational mary from [employer]. Physical exam (Primary Care) Vital Signs: Last Vital Signs Temp 97.3 F 07/09/24 14:17 Pulse 74 07/09/24 14:17 BP 120/68 07/09/24 14:17 Pulse Ox 100 07/09/24 14:17 Oxygen Delivery Method Room Air 07/09/24 14:17 BMI result Body Mass Index 25.4 Tobacco/Smoking Status: Tobacco use Status Tobacco use date assessed 07/09/24 07/09/24 14:23 Patient Tobacco Use Status Former Tobacco user 07/09/24 14:23 Tobacco use type Cigarette 07/09/24 14:23 e-Cigarette/Vaping Use Never Used 07/09/24 14:23 PHQ-9: PHQ-9 Score PHQ-9: Total score 0 07/09/24 14:51 Depression Screening Interpretation: Negative Thrive Assessment: Date of Thrive Assessment Date Thrive assessed 07/09/24 07/09/24 14:23 Currently or been in a relationship where the following occur: No concerns reported Const General: alert; No acute distress Eyes Conjunctivae: conjunctivae normal Resp Auscultation: clear to auscultation bilaterally Cardio Rate: regular rate Rhythm: regular rhythm GI Inspection: Yes normal to inspection Extrem General: Yes normal to inspection and No edema Coding Level of Care Code Est Pt Level 4 (60475) Complex EM visit Add On G2211 Diagnoses CKD (chronic kidney disease) stage 4, GFR 15-29 ml/min N18.4 Hypercholesterolemia E78.00 KAREN on CPAP G47.33; Z99.89 Atherosclerotic cardiovascular disease I25.10 Paroxysmal atrial fibrillation I48.0 Assessment & Plan Assessment & Plan (1) CKD (chronic kidney disease) stage 4, GFR 15-29 ml/min: Code(s): N18.4 - Chronic kidney disease, stage 4 (severe) Category: Medical Plan: Is being monitored by Nephrology. Has been seen by Urology also (2) Hypercholesterolemia: Code(s): E78.00 - Pure hypercholesterolemia, unspecified Category: Medical Plan: Avoid fried foods, chicken skin, eggs, butter margarine, pastries and meat. Be it pork or beef they have a lot of cholesterol LDL goal of less than 70 and triglyceride of less than 150. October 2023 last done with an LDL of 88. (3) KAREN on CPAP: Code(s): G47.33 - Obstructive sleep apnea (adult) (pediatric); Z99.89 - Dependence on other enabling machines and devices Category: Medical Plan: Continue to use the CPAP more than 4 hours a night and benefits from this. (4) Atherosclerotic cardiovascular disease: Code(s): I25.10 - Atherosclerotic heart disease of [place] coronary artery without angina pectoris Category: Medical Plan: Control the cholesterol, weight, blood pressure patient is on aspirin (5) Paroxysmal atrial fibrillation: Code(s): I48.0 - Paroxysmal atrial fibrillation Category: Medical Plan: Patient has been seeing Cardiology and has mentioned multiple times anti coagulation but patient declined Plan History of Present Illness The patient is a 74-year-old male presenting for monitoring and management of multiple chronic health conditions, including cardiomyopathy with congestive heart failure, treated with mitral valve repair, and atrial fibrillation post-ablation in 2020, followed by a Maze procedure in 2021. Anticoagulation therapy has been recommended, but the patient declines due to personal preference. He reports a preserved ejection fraction on echocardiogram with no thrombus found post atrial appendage excision. Chronic kidney disease stage 4 is present, with recent scans indicating decreased perfusion, notably in the right kidney, in conjunction with right hydronephrosis and ureteric stricture, requiring periodic procedures. Obstructive sleep apnea is another significant issue, with consistent CPAP use providing symptom improvement. Hypercholesterolemia is being managed with medication adjustments due to renal concerns, aiming for specific LDL levels. An ascending aortic aneurysm and a history of anemia are part of the medical picture, with continued monitoring. The patient?s dietary habits include regular salad and dairy intake, potentially influencing bowel movements, which have increased in frequency. Health Maintenance - Regular CPAP use more than 4 hours a night for obstructive sleep apnea management. - Follow-up on ascending aortic aneurysm, last tested in November 2023. - Cholesterol management with a goal of LDL less than 70 mg/dL. - Use of baby aspirin for cardiovascular protection. - Dietary modifications to monitor fiber intake, with discussions on the impact of certain foods like dairy on bowel regularity. - Regular monitoring of kidney function with nephrology. Social History - Regular exercise routine including gym visits every other day. - Consumption of a predominantly plant-based diet with frequent salads. - History of past alcohol consumption, discontinued since experiencing health issues. - Limited to two meals daily, typically breakfast and an evening salad with vegetables like kale or spinach. Review of Systems - Cardiovascular: Denies current chest pain; reports past atrial fibrillation episodes linked to improper CPAP usage. - Renal: Reports increase in bathroom visits, normal urination but increased frequency. - Gastrointestinal: Reports recent increase in bowel movement frequency with changes in dietary intake. - Pulmonary: Denies cough or shortness of breath, reports compliance with CPAP therapy. Physical Exam Results - Echocardiogram (March 2024): No thrombus in atrial appendage; EF 55-60%. - Renal scan: Small right kidney with decreased perfusion; minimally diminished perfusion left kidney; no response to Lasix. - Blood Work (May 2024): BUN elevated at 52, creatinine 2.19, blood sugar 106, LDL 88. Plan The patient requires ongoing management for multiple chronic conditions, such as cardiovascular health, chronic kidney disease, and obstructive sleep apnea. Cardiovascular health will be monitored, with ejection fraction and atrial fibrillation being focal points, while respecting his anticoagulation choice. Regular nephrology follow-up ensures kidney function oversight. Hypercholesterolemia management will target specific LDL levels while considering renal health. Dietary modifications may help address gastrointestinal symptoms. The management strategy aligns with patient preferences, ensuring comprehensive care for his complex medical needs. Patient was informed and verbally consented to the use of an ambient scribe for clinic note documentation during this visit. Discussion Notes I discussed the comprehensive management strategies for the patient's multiple health conditions. We reviewed the importance of maintaining stable cardiovascular and renal health, and the role of anticoagulation, particularly with his atrial fibrillation, emphasizing the associated benefits and risks. I explained the connection between CPAP use and sleep apnea management, which mitigates atrial episodes. We talked about hypercholesterolemia treatment, highlighting LDL targets and medication implications due to renal considerations. I advised on dietary impacts on gastrointestinal symptoms. He was satisfied with the ongoing management plan and future checkups. Patient Instructions - Continue using CPAP every night, ensuring proper setup to avoid related atrial issues. - Monitor and note any changes in bowel habits, possibly relating them to diet. - Adhere to the prescribed cholesterol management regimen focusing on LDL reduction. - Attend all scheduled nephrology and cardiology follow-ups for heart and kidney health. - Maintain regular exercise and proper hydration; avoid foods triggering bowel irregularities. - Return for any acute symptoms or concerns regarding current conditions. Orders: Orders Complete Blood Count Auto Diff Today E78.00 - Pure hypercholesterolemia, unspecified Comprehensive Met. Panel Today E78.00 - Pure hypercholesterolemia, unspecified Free T4 (Free Thyroxine) Today E78.00 - Pure hypercholesterolemia, unspecified Lipid Panel Today E78.00 - Pure hypercholesterolemia, unspecified Thyroid Stimulating Hormone Today E78.00 - Pure hypercholesterolemia, unspecified Vitamin B12 and Folate Today E78.00 - Pure hypercholesterolemia, unspecified UA CC w/rflx Micro + Cult Today E78.00 - Pure hypercholesterolemia, unspecified, R30.0 - Dysuria Magnesium Today E78.00 - Pure hypercholesterolemia, unspecified Hemoglobin A1c Today E78.00 - Pure hypercholesterolemia, unspecified
[2024-07-09 14:17] VITALS: BP 120/68; PULSE 74; TEMP 36.3; O2SAT 100; BMI 25.4
--- OUTSIDE RECORDS SUMMARY | 2024-07-09 16:26 | XMS_ITS | Encounter Summary ---
Author Organization [facility] Address [address] [place] [address] Care Team Providers Care Order Takers Supervisor Name Role Phone Gerda Feldman MD Primary Care Provider Jaylen Amin MD Unavailable Osmel Huerta MD Unavailable [phone] Wil Deras MD Unavailable Encounter Details Date Type Department Care Team (Late st Contact Info) Description 07/21/2021 Scanned Document [address] [address] Provider, MD Janett [address] [place] [address] Social History Tobacco Use Types Packs/Day Years [...] on filedocumented in this encounter Care Teams Order Takers Supervisor Relationship Specialty Start Date End Date Gerda Feldman MD [address] [place] [address] PCP - General Internal Medicine 02/05/20 Jaylen Amin MD [address] [place] [address] Center Consultant Cardiovascular Disease 02/05/20 Osmel Huerta MD [address] [place] [address] [address] [place] [address] Surgery, General 09/04/20 Wil Deras MD [address] [place] [address] Cardiovascular Disease 04/30/21 documented as of this encounter
--- OUTSIDE RECORDS SUMMARY | 2024-07-09 16:26 | XMS_ITS | Encounter Summary ---
Author Organization [facility] Address [address] [place] [address] Care Team Providers Care Paralegal Assistant Name Role Phone Gerda Feldman MD Primary Care Provider Jaylen Amin MD Unavailable [phone] Robert Crockett MD Unavailable [phone] Osmel Huerta MD Unavailable [phone] Wil Deras MD Unavailable Encounter Details Date Type Department Care Team (Late st Contact Info) Description 02/15/[address] [address] Robert Crockett MD [address] [place] [address] [address] [place] [address] Social History Tobacco Use Types [...] documented as of this encounter Care Teams Paralegal Assistant Relationship Specialty Start Date End Date Gerda Feldman MD [address] [place] [address] [place] [address] PCP - General Internal Medicine 02/05/20 Jaylen Amin MD [address] [address] Lard Maker Cardiovascular Disease 02/05/20 Robert Crockett MD [address] [address] Physician Cardiac Electrophysiology 03/01/2004/29 Osmel Huerta MD [address] [place] [address] [address] [place] [address] Surgery, General 09/04/20 Wil Deras MD [address] [place] [address] Cardiovascular Disease 04/30/21 documented as of this encounter
--- OUTSIDE RECORDS SUMMARY | 2024-07-09 16:26 | XMS_ITS | Encounter Summary ---
Author Organization [facility] Address [address] [place] [address] Care Team Providers Care Manager Utility Name Role Phone Gerda Feldman MD Primary Care Provider Jaylen Amin MD Unavailable [phone] Robert Crockett MD Unavailable [phone] Osmel Huerta MD Unavailable [phone] Wil Deras MD Unavailable Encounter Details Date Type Department Care Team (Late st Contact Info) Description 02/15/2020 Scanned Document [address] [place] [address] Provider, Janett, [address] [place] [address] Social History Tobacco Use Types Packs/Day Years [...] documented as of this encounter Care Teams Manager Utility Relationship Specialty Start Date End Date Gerda Feldman MD [address] [place] [address] [place] [address] PCP - General Internal Medicine 02/05/20 Jaylen Amin MD [address] [address] Customer Support Associate Cardiovascular Disease 02/05/20 Robert Crockett MD [address] [address] Physician Cardiac Electrophysiology 03/01/2004/29 Osmel Huerta MD [address] [place] [address] Drive [address] [place] [address] Surgery, General 09/04/20 Wil Deras MD [address] [place] [address] Cardiovascular Disease 04/30/21 documented as of this encounter
--- OUTSIDE RECORDS SUMMARY | 2024-07-09 16:26 | XMS_ITS | Encounter Summary ---
Author Organization [facility] Address [address] [place] [address] Care Team Providers Care Trapper Bird Name Role Phone Gerda Feldman MD Primary Care Provider Jaylen Amin MD Unavailable Robert Crockett MD Unavailable [phone] Osmel Huerta MD Unavailable [phone] Wil Deras MD Unavailable Encounter Details Date Type Department Care Team (Late st Contact Info) Description 02/15/2020 Abstract [facility] [place] [facility] [address] [place] [id number] [address] Social History Tobacco Use Types Packs/Day Years [...] documented as of this encounter Care Teams Trapper Bird Relationship Specialty Start Date End Date Gerda Feldman MD [address] [place] [address] [place] [address] PCP - General Internal Medicine 02/05/20 Jaylen Amin MD [address] [address] Senior It Recruiter Cardiovascular Disease 02/05/20 Robert Crockett MD [address] [address] Physician Cardiac Electrophysiology 03/01/2004/29 Osmel Huerta MD [address] [place] [address] [address] [place] [address] Surgery, General 09/04/20 Wil Deras MD [address] [place] [address] Cardiovascular Disease 04/30/21 documented as of this encounter
--- OUTSIDE RECORDS SUMMARY | 2024-07-09 16:26 | XMS_ITS | Encounter Summary ---
Author Organization [facility] Address [address] [place] [address] Care Team Providers Care Clinical Director Name Role Phone Gerda Feldman MD Primary Care Provider [phone] Jaylen Amin MD Unavailable [phone] Robert Crockett MD Unavailable [phone] Osmel Huerta MD Unavailable [phone] Wil Deras MD Unavailable Encounter Details Date Type Department Care Team (Late st Contact Info) Description 05/06/2020 Prep for Surgery [facility] Heart & Vascular [place] - Electrophysiology [address] [place] [address] [place] [phone] Sophie Gtz, CONCRETE CARPENTER [address] [address] Social History Tobacco Use Types [...] documented as of this encounter Care Teams Clinical Director Relationship Specialty Start Date End Date Gerda Feldman MD [address] [place] [address] [facility] [place] [address] PCP - General Internal Medicine 02/05/20 Jaylen Amin MD [address] [address] Chemical Treatment Plant Technician Cardiovascular Disease 02/05/20 Robert Crockett MD [address] [address] Physician Cardiac Electrophysiology 03/01/2004/29 Osmel Huerta MD [address] [place] [address] [address] [place] [address] Surgery, General 09/04/20 Wil Deras MD [address] [place] [address] Cardiovascular Disease 04/30/21 documented as of this encounter
--- OUTSIDE RECORDS SUMMARY | 2024-07-09 16:26 | XMS_ITS | Encounter Summary ---
Author Organization [facility] Address [address] [place] [address] Care Team Providers Care Senior Software Development Manager Name Role Phone Gerda Feldman MD Primary Care Provider Jaylen Amin MD Unavailable [phone] Robert Crockett MD Unavailable [phone] Osmel Huerta MD Unavailable [phone] Wil Deras MD Unavailable Encounter Details Date Type Department Care Team (Late st Contact Info) Description 02/21/2020 Scanned Document [address] [place] [address] Provider, Janett, [address] [place] [address] Social History Tobacco Use Types Packs/Day Years [...] documented as of this encounter Care Teams Senior Software Development Manager Relationship Specialty Start Date End Date Gerda Feldman MD [address] [place] [address] [place] [address] PCP - General Internal Medicine 02/05/20 Jaylen Amin MD [address] [address] Quality Lab Technician Cardiovascular Disease 02/05/20 Robert Crockett MD [address] [address] Physician Cardiac Electrophysiology 03/01/2004/29 Osmel Huerta MD [address] [place] [address] Drive [address] [place] [address] Surgery, General 09/04/20 Wil Deras MD [address] [place] [address] Cardiovascular Disease 04/30/21 documented as of this encounter
--- OUTSIDE RECORDS SUMMARY | 2024-07-09 16:26 | XMS_ITS | Clinical Summary ---
Author Organization [facility] Address [address] [place] [address] Phone Care Team Providers Care Mid Level Business Analyst Name Role Phone Gerda Feldman MD Primary Care Provider [phone] Allergies Active Allergy Reactions Criticality Noted Date [...] (11/05/2021): Added automatically from request for surgery [id number] Non-traumatic tendon rupture 01/24/2020 11/05/2021 Overview (11/05/2021): [...] to complete this topic Insurance [facility] Care Teams Mid Level Business Analyst Relationship Specialty Start Date End Date Gerda Feldman MD [facility] [place] [address] [place], [place] PCP - General Internal Medicine 10/21/21
--- OUTSIDE RECORDS SUMMARY | 2024-07-09 16:26 | XMS_ITS | Encounter Summary ---
Author Organization [facility] Address [address] [place] [address] Care Team Providers Care Senior Caregiver Name Role Phone Gerda Feldman MD Primary Care Provider [phone] Jaylen Amin MD Unavailable [phone] Robert Crockett MD Unavailable [phone] Osmel Huerta MD Unavailable Wil Deras MD Unavailable Encounter Details Date Type Department Care Team (Late st Contact Info) Description 02/13/2021 Telephone [facility] Heart & Vascular [place] - Electrophysiology [address] [place] [address] Wil Deras MD [address] [place] [address] Social History Tobacco Use Types Packs/Day Years [...] on filedocumented in this encounter Care Teams Senior Caregiver Relationship Specialty Start Date End Date Gerda Feldman MD [address] [place] [address] [place] [address] PCP - General Internal Medicine 02/05/20 Jaylen Amin MD [address] [address] Crop And Soil Technician Cardiovascular Disease 02/05/20 Robert Crockett MD [address] [address] Physician Cardiac Electrophysiology 03/01/2004/29 Osmel Huerta MD [address] [place] [address] [address] [place] [address] Surgery, General 09/04/20 Wil Deras MD [address] [place] [address] Cardiovascular Disease 04/30/21 documented as of this encounter
--- OUTSIDE RECORDS SUMMARY | 2024-07-09 16:26 | XMS_ITS | Encounter Summary ---
Author Organization [facility] Address [address] [place] [address] Care Team Providers Care Joint Filler Name Role Phone Gerda Feldman MD Primary Care Provider Jaylen Amin MD Unavailable Robert Crockett MD Unavailable [phone] Osmel Huerta MD Unavailable [phone] Wil Deras MD Unavailable Encounter Details Date Type Department Care Team (Late st Contact Info) Description 02/15/2020 Scanned Document [address] [place] [address] Provider, Janett, [address] [place] [address] Social History Tobacco Use Types Packs/Day Years [...] documented as of this encounter Care Teams Joint Filler Relationship Specialty Start Date End Date Gerda Feldman MD [address] [place] [address] [place] [address] PCP - General Internal Medicine 02/05/20 Jaylen Amin MD [address] [address] Rooming House Inspector Cardiovascular Disease 02/05/20 Robert Crockett MD [address] [address] Physician Cardiac Electrophysiology 03/01/2004/29 Osmel Huerta MD [address] [place] [address] Drive [address] [place] [address] Surgery, General 09/04/20 Wil Deras MD [address] [place] [address] Cardiovascular Disease 04/30/21 documented as of this encounter
--- OUTSIDE RECORDS SUMMARY | 2024-07-09 16:26 | XMS_ITS | Data Portability ---
Author Organization [facility] - Misael Bardales s, [address] Address [address] [place] [address] Assessment No assessment recorded. Plan of Treatment Reminders Order Date Submit Date Provider Last Modified By Organization Details Last Modified Time Details Appointments None recorded. Lab None recorded. Referral otolaryngol ogist referral - feeling dizzy and vertigo especially waking upm in morning. need further evaluation and treatment. 2022 023 [email or web address] 26 Pratik Rivera MD, 100 [facility] Master, [facility] 100, [place], [address], 3 12:51:32 Procedures None recorded. Surgeries None recorded. Imaging None recorded. Medication Orders meclizine 25 mg tablet 2022 023 [id number], [address] [place], [place], [id number], 19:15:43 Patient TargetsNo targets recorded. Patient Instructions Encounter Date Encounter Id Patient Instructions Last Modified By Organization Details Last Modified Time 06/06/2022 [id number] dizziness: care instructions Not available 06/06/2022 19:14:50 [...] Not available 06/06/2022 19:14:49 Reason for Referral Stand Grinder Referral fo r Benign paroxysmal positional vertigo [...] Address Organization Details Recorded Time Essential hypertension 78345922 Active 2022 IRIS COUVERTIE R null, [place] - [facility] 3 18:23:37 Acute kidney injury 99798879 Active 2022 IRIS COUVERTIE R null, [place] - [facility] 3 18:26:17 Insomnia 757437474 Active 2022 IRIS COUVERTIE R null, PA [...] Name and Address Organization Details Recorded Time 351877 Substance with sulfonami de structure and antibacte rial mechanism of action (substanc e) medicatio n Not available Not available Not available 06/06/2022 25711 8003 SNOMED IRIS COUVERTIE R null, [place] - [facility] 3 18:21:58 896313 gabapenti n medicatio n dizziness Not available Not available 06/06/2022 09779 RxNorm IRIS COUVERTIE R null, [place] - [facility] 3 18:22:14 557608 rosuvasta tin medicatio n edema Not available Not available 06/06/2022 01985 2 RxNorm KRISHNA PEREZ [facility] [...] BY MOUTH EVERY DAY DIRECTED BY [facility] 06/06 completed Not Available Not [...] Updated DateTime 3 187.96 cm 23.8 kg/m2 72238.5 9 g 100 % 100 % 66 [...] SNOMED-CT Code Diagnosis ICD10 Code Diagnosis Note [id number] [address] [facility] [place] [address] 08/09/2016 14:01:54 08/09/2016 14:52:09 [id number] [address] [facility] [place] [address] 10/08/2019 14:19:37 10/08/2019 15:46:07 [id number] [address] [facility] [place] [address] 06/14/2020 09:23:40 06/14/2020 09:53:11 [id number] [address] [facility] [place] [address] 12/31/2018 10:08:17 12/31/2018 10:53:03 [id number] [address] [facility] [place] [address] 06/08/2016 13:08:05 06/08/2016 14:31:43 [id number] [address] [facility] [place] [address] 01/02/2020 17:09:44 01/02/2020 17:43:56 [id number] [address] [facility] [place] [address] 12/18/2019 15:16:32 12/18/2019 16:26:12 [id number] [address] [facility] [place] [address] 02/19/2016 13:00:02 02/19/2016 13:30:00 [id number] [address] [facility] [place] [address] 02/13/2016 15:03:43 02/13/2016 15:28:04 [id number] [address] [place] [address] [place] [address] 12/08/2017 08:46:06 12/08/2017 09:50:44 [id number] [address] [place] [address] [place] [address] 03/16/2020 15:48:34 03/16/2020 18:27:17 [id number] [address] [place] [address] [place] [address] 04/30/2020 13:25:07 04/30/2020 18:52:16 [id number] [facility] JAIMES [address] [facility] [place] [address] 06/06/2022 15:33:14 07/27/2022 19:27:19 Left without being seen [id number] 9102 Z53.21 [id number] Leroy Crandall NP [address] [facility] [place] [address] 06/06/2022 17:13:56 06/06/2022 19:17:57 Benign paroxysmal positional vertigo 761348601 H81.10 Health Concerns Section Related Observation LastModified by Organization Detai ls LastModified Time None Recorded Concern Status LastModified by Organization Details LastModified Time None Recorded Advance Directives Directive None Recorded Payers Encounter Date Sequence Insurance Name Policy Number Policy Shelby Covered Member ID Shelby Member ID Guarantor Name 03/16/2020 1 [place] [employer] Eliazar Quispe [id number] Eliazar Quispe 03/16/2020 2 [place] [id number] Eliazar Quispe [id number] Eliazar Quispe 04/30/2020 1 [place] Eliazar Quispe [id number] Eliazar Quispe 04/30/2020 2 [place] [id number] Eliazar Quispe [id number] Eliazar Quispe 06/14/2020 1 [place] [employer] Eliazar Quispe [id number] Eliazar Quispe 06/14/2020 2 [place] [id number] Eliazar Quispe [id number] Eliazar Quispe 06/06/2022 1 [place] Eliazar Quispe [id number] Eliazar Quispe 06/06/2022 2 [place] [id number] Eliazar Quispe [id number] Eliazar Quispe 06/06/2022 1 [place] [employer] Eliazar Quispe [id number] Eliazar Quispe 06/06/2022 2 [place] [id number] Eliazar Quispe [id number] Eliazar Quispe Notes Date Note Type Note [...] Crandall NP [address] [place], [address], [place] - [facility] 06/06/2022 19:16:09
--- OUTSIDE RECORDS SUMMARY | 2024-07-09 16:26 | XMS_ITS | Continuity of Care Document ---
Author Organization [facility], [facility], Cardiac EP [facility] Address [address] [facility] [address] [place] [address] Care Team Providers Care Dumb Waiter Operator Name Role Phone JORDON OROZCO Clinical Cardiac Electrophysiolo gist FRANCA VELA Ice Cream Freezer Helper [phone] ИВАН YANES Primary Care Provider [phone] HAN JONES Cardiac Surgeon CRISTINA LEONARD Knitting Machine Operator ANGELITA CHAMBERS Physician Cuff Turner Machine Operator JOSELINE FULTON Urologist Assessment Encounter Date Assessment Date Assessment LastModified by Organization Details LastModified Time 07/06/2024 07/06/2024 Patient came in to office to have his Afib alert reset, he had 1 hour and 45 min of afib overnight, he is unsure what provoked it but did note that he did not turn on his cpap accidentally and thought that could be contributory . Upon interrogation he had 5 NSVT only one of what was actual NSVT, others were atrial in nature. Angelita could was made aware, no change to POC. We discussed OAC which is what our recommendation is at this point he wants to explore if a watchman can be done on his excised GABRIEL. , he is set up to see a new cardiology MD in [facility] in August, I did offer to place a referral to Dr Terrell to evaluate. At this point he will wait until August, We discussed OAC and he did take a box of samples should he decide to start the med, he will then call our office for prescription. We reviewed risks of not be anticoagulated. See Pacemate for interrogation Not available 07/06/2024 15:00:12 Plan of Treatment Reminders Order Date Submit Date Provider Last Modified By Organization Details Last Modified Time Details Appointments EP Follow Up 45 2024 03:15P ARCHANA Banks Not available Not available Not available Lab None recorded . Referral None recorded . Procedures None recorded . Surgeries None recorded . Imaging None recorded . Medication Orders None recorded . Patient TargetsNo targets recorded. Patient InstructionsNo instructions recorded. Reason for Referral None Reported. Results Created Date Observation Date Name Description Value Unit Range Abnormal Flag Note LastModifiedBy Organization Detail LastModifiedTime 06/11/19 25 06/01/2024 devic e check (PROC ) No observ ation record ed. [email or web address] Not Available 2024 16:11:44 07/08/19 25 07/06/2024 devic e check (PROC ) No observ ation record ed. [email or web address] Not Available 2024 09:26:43 Result Notes None recorded. Problems Name Problem SNOMED Code Status Onset Date Resolution Date Notes Provider Name and Address Organization Details Recorded Time Atrial flutter 9891341 Active Jane guajardo [facility], [facility] 2 14:43:55 Persisten t atrial fibrillat ion 064317483 Active Jane guajardo [facility], [facility] 2 14:44:26 Rupture of tendon 700710296 Active Nontrauma tic L ankle Jane guajardo [facility], [facility] 2 14:45:26 History of cardiover vita 939549220606 08 Active Jane guajardo [facility], [facility] 2 14:45:57 Cerebrova scular accident 444077459 Active Jane guajardo [facility], [facility] 2 14:46:07 Dyspnea 472141599 Active Jane guajardo [facility], [facility] 2 14:46:19 Insomnia 474694907 Active Jane Watt null [facility], [facility] 2 14:46:34 Nerve injury 78804763 Active Right Arm Jane guajardo [facility] 2 14:47:21 Arthritis 4147836 Active Right Foot Jane Watt null, [facility] 2 14:47:56 Cardiac arrhythmi a 115262736 Active 2022 Arden Cosme null, [facility] 3 13:53:39 Palpitati ons 14591019 Active 2022 ARCHANA CARIAS [address] [place] [address], [place], [place], [address] [place] [address] 8, [facility] 3 14:57:10 Paroxysma l atrial fibrillat ion 743378322 Active 2022 ARCHANA CARIAS [address] [place] [address], [place], [place], [address] [place] [address] 8, [facility] 3 14:59:34 Ventricul ar premature beats 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 Active [address] [place] [address], [place], [place], [address] [place] [address] 8, [facility] 3 14:59:56 Left atrial appendage absent 362730939 Active 2022 s/p clipping of GABRIEL at time of MV repair, 2021 ARCHANA Cooper [address] [place] [address], [place], [place], [address] [place] [address] 8, [facility] 4 09:17:42 Left bundle branch hemiblock 1464322 Active [address] [place] [address], [place], [address], [facility] 3 15:03:55 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 XT DR MRI DEVICE SERIAL NUMBER [id number] DEVICE TYPE Pacemaker DATE OF IMPLANT 28-Nov-19 22 pt transferr ed into 's remote clinic from [place] 12/13/2023 Phoebe Mccracken RN [address], [place], [address], [place] - [facility] 12:20:39 Nonsustai marcelo ventricul ar tachycard ia 923326846 Active 2023 ARCHANA Cooper [address] FLOOR, [place], [address], [place] - [facility] 12:44:39 Problem Notes None recorded. Procedures Surgical History Date Name Laterality Status Provider Name and Address Organization Details Recorded Time 06/01/19 25 In-person Programming of Pacemaker: Dual Chamber CPT 42205,[address] [place] [address], [place], [address], [place] - [facility] 06/01/2024 16:12:50 05/14/19 25 insertion of stent into urethra completed Joi loya [place] - [facility] 06/01/2024 15:31:08 12/05/19 24 In-person Programming of Pacemaker: Dual Chamber CPT 67377,[address] [place] [address], [place], [address], [place] - [facility] 12/05/2023 16:20:31 06/06/19 24 In-person Programming of Pacemaker: Dual Chamber CPT 92363,26 completed [address] [place] [address], [place], [address], [place] - [facility] 06/07/2023 12:27:03 11/27/19 23 In-person Programming of Pacemaker: Dual Chamber CPT 10614,26 completed [address] [place] [address], [place], [address], [place] - [facility] 11/26/2022 16:11:31 05/27/19 23 In-person Programming of Pacemaker: Dual Chamber CPT 39414,26 completed ARCHANA CARIAS [address], [place], [address], [place] - [facility] 05/27/2022 15:17:02 04/25/19 23 Hernia repair: Incisional completed Jane ALLEN - [facility] 12/05/2023 15:26:37 02/05/20 22 In-person Programming of Pacemaker: Dual Chamber CPT 34872,26 completed Jordon Orozco MD [address], [place], [address], [place] - [facility] 02/04/2022 17:05:28 11/28/19 22 cardiac pacemaker procedure completed Han Mills RN [address], [place], [address], [place] - [facility] 02/04/2022 16:16:27 11/13/19 22 Maze procedure completed Han Mills RN [address], [place], [address], [place] - [facility] 11/24/2021 13:27:31 11/13/19 22 atrial appendage excision completed Han Mills RN [address], [place], [address], [place] - [facility] 11/24/2021 13:27:59 04/25/19 22 Other completed Jane ALLEN - [facility] 12/05/2023 15:26:37 04/25/19 22 Pacemaker completed Jane ALLEN - [facility] 12/05/2023 15:26:37 03/16/20 21 catheter ablation of arrhythmogenic focus completed Jane ALLEN - [facility] 09/23/2021 14:50:10 05/07/19 21 catheter ablation of arrhythmogenic focus completed Jane ALELN - [facility] 09/23/2021 14:49:31 05/07/19 21 catheter ablation of arrhythmogenic focus completed [facility] 09/23/2021 14:49:45 04/25/19 21 Hernia repair: Inguinal [facility] 12/05/2023 15:26:37 04/25/19 19 Cataract removal / Lens [facility] 12/05/2023 15:26:37 04/25/19 13 operative procedure on cartilage completed [facility] 09/23/2021 14:51:05 04/25/19 13 Shoulder joint [facility] 09/23/2021 14:51:34 04/25/19 13 Shoulder repair [facility] 12/05/2023 15:26:37 04/25/19 02 LASIK [facility] 12/05/2023 15:26:37 Tonsillectomy [facility] 09/23/2021 14:52:05 repair of mitral valve completed Han Mills RN [address] [place] [address],[address], [place], [address], [facility], [facility] 11/24/2021 13:31:59 Imaging Results None recorded. Procedure Notes None recorded. Medical Equipment None Reported. Allergies Allergen ID Allergen Name Allergen Category Reaction Reaction Severity Criticality Documentation Date Start Date Code Code System Note Provider Name and Address Organization Details Recorded Time 727979 metoprolo l Not available dizziness palpitati ons severe Not available Not available 09/23/2021 6918 RxNorm Janeyovani guajardo [facility] 2 14:56:20 039917 Substance with sulfonami de structure and antibacte rial mechanism of action (substanc e) medicatio n Not available Not available Not available 09/23/2021 65783 8003 SNOMED Unsur e Child moreland react ion Jane guajardo [facility] 2 14:57:02 968248 gabapenti n medicatio n other moderate Not available 02/04/2022 61354 RxNorm Beni ce & gate Han Mills RN [address], [place], [address], [facility] 2 16:11:28 400956 Product containin g 3-hydroxy -3-methyl glutaryl- coenzyme A reductase inhibitor (product) medicatio n muscle cramps severe Not available 02/04/2022 18136 009 SNOMED Han Mills RN [address], [place], [address], [facility] 2 16:12:03 389156 amoxicill in medicatio n rash Not available Not available 11/26/2022 723 RxNorm David Rivas bennett, [facility] 3 15:16:47 Medications Name [...] Not Available Not Available Not Available Vitals None Recorded Social History Question Answer Notes LastModified by Organizat ion Details LastModified Time Tobacco Smoking Status Former Smoker quit greater than 40 years Annette Cuellar, DOMINICK [address] [facility],[address], [place], [address], [facility] 09/28/2021 13:21:29 Do You Have An Advance Directive? Yes [email or web address] Information not available 06/06/2023 What Is Your Level Of Alcohol Consumption? Occasional Information not available 11/26/2022 How Many Times Per Week Do You Consume Alcohol? Less Than 1 Time Per Week Information not available 06/06/2023 Is Blood Transfusion Acceptable In An Emergency? Yes [email or web address] Information not available 06/06/2023 What Is Your Level Of Caffeine Consumption? Moderate 1-2 Cups Of Coffee Information not available 06/06/2023 What Type Of Diet Are You Following? CARDIAC Information not available 09/28/2021 When Did You Quit Smoking? 16+yearssincel astcigarette Information not available 06/06/2023 Do You Have A Warehouse Order Puller (loved One Involved In Your Care)? No Information not available 11/26/2022 Do You Feel Safe At Home? Yes Information not available 09/28/2021 Over The Last 3 Months, Have You Struggled With Housing? No [email or web address] Information not available 12/05/2023 Over The Last 3 Months, Have You Struggled With Access To Food? No [email or web address] Information not available 12/05/2023 Over The Last 3 Months, Have You Struggled With Utilities? No [email or web address] Information not available 12/05/2023 Over The Last 3 Months, Have You Struggled With Transportation? No [email or web address] Information not available 12/05/2023 Over The Last 3 Months, Have You [place] Unsafe In Your Relationship? No [email or web address] Information not available 12/05/2023 What Was The Date Of Your Most Recent Tobacco Screening? 06/01/2024 [email or web address] Information not available 06/01/2024 How Many Children Do You Have? 2 Information not available 09/28/2021 Do You Use Any Illicit Or Recreational Drugs? No [email or web address] Information not available 06/06/2023 Has Tobacco Cessation Counseling Been Provided? No [email or web address] Information not available 12/05/2023 How Many Years [...] Organization Details LastModified Time Mother Dementia 97 [email or web address] Not availa ble 09/23/2021 14:55:32 Father Family history of stroke 87 [email or web address] Not available 04/2021 14:55:47 Notes:11/26/22 JG Medical [...] SNOMED-CT Code Diagnosis ICD10 Code Diagnosis Note [id number] Annette Cuellar RN Cardiac EP DANI Pride [address] [facility] [address] [place] [address] 07/06/2024 13:31:20 07/06/2024 14:46:18 Health Concerns Section Related Observation LastModified by Organization Detai ls LastModified Time None Recorded Concern Status LastModified by Organization Details LastModified Time None Recorded Payers Encounter Date Sequence Insurance Name Policy Number Policy Shelby Covered Member ID Shelby Member ID Guarantor Name 07/06/2024 1 [place] Eliazar Quispe [id number] Eliazar Quispe 07/06/2024 2 [place] [id number] Eliazar Quispe [id number] Eliazar Quispe
--- OUTSIDE RECORDS SUMMARY | 2024-07-09 16:26 | XMS_ITS | Encounter Summary ---
Author Organization [facility] Address [address] [place] [address] Care Team Providers Care Account Development Specialist Name Role Phone Gerda Feldamn MD Primary Care Provider Jaylen Amin MD Unavailable [phone] Rboert Crockett MD Unavailable [phone] Osmel Huerta MD Unavailable [phone] Wil Deras MD Unavailable Encounter Details Date Type Department Care Team (Late st Contact Info) Description 02/18/2020 Scanned Document [address] [place] [address] Provider, Janett, [address] [place] [address] Social History Tobacco Use Types Packs/Day Years [...] documented as of this encounter Care Teams Account Development Specialist Relationship Specialty Start Date End Date Gerda Feldman MD [address] [place] [address] [place] [address] PCP - General Internal Medicine 02/05/20 Jaylen Amin MD [address] [address] Trench Digging Machine Operator Cardiovascular Disease 02/05/20 Robert Crockett MD [address] [address] Physician Cardiac Electrophysiology 03/01/2004/29 Osmel Huerta MD [address] [place] [address] Drive [address] [place] [address] Surgery, General 09/04/20 Wil Deras MD [address] [place] [address] Cardiovascular Disease 04/30/21 documented as of this encounter
--- OUTSIDE RECORDS SUMMARY | 2024-07-09 16:26 | XMS_ITS | Encounter Summary ---
Author Organization [facility] Address [address] [place] [address] Care Team Providers Care Drum Drier Name Role Phone Gerda Feldman MD Primary Care Provider Jaylen Amin MD Unavailable Robert Crockett MD Unavailable [phone] Osmel Huerta MD Unavailable [phone] Wil Deras MD Unavailable Encounter Details Date Type Department Care Team (Late st Contact Info) Description 09/05/2020 Scanned Document [address] [place] [address] Provider, Janett, [address] [place] [address] Social History Tobacco Use Types Packs/Day Years [...] on filedocumented in this encounter Care Teams Drum Drier Relationship Specialty Start Date End Date Gerda Feldman MD [address] [place] [address] [place] [address] PCP - General Internal Medicine 02/05/20 Jaylen Amin MD [address] [address] Patch Setter Cardiovascular Disease 02/05/20 Robert Crockett MD [address] [address] Physician Cardiac Electrophysiology 03/01/2004/29 Osmel Huerta MD [address] [place] [address] [address] [place] [address] Surgery, General 09/04/20 Wil Deras MD [address] [place] [address] Cardiovascular Disease 04/30/21 documented as of this encounter
--- OUTSIDE RECORDS SUMMARY | 2024-07-09 16:26 | XMS_ITS | Data Portability ---
Author Organization [facility], [facility], Primary Care [facility] Address [address] [place] [address] Care Team Providers Care Pole Inspector Name Role Phone JORDON OROZCO Clinical Cardiac Electrophysiolo gist FRANCA VELA Fugitive Detective ИВАН YANES Primary Care Provider HAN JONES Cardiac Surgeon CRISTINA LEONARD Almond Pan Finisher ANGELITA CHAMBERS Physician [place] Machine Operator [phone] JOSELINE FULTON Urologist Assessment Encounter Date Assessment Date Assessment LastModified by Organization Details LastModified Time 11/26/2022 11/26/2022 Mr. Quispe wa s seen [...] on September 26 and occurred in the early intervention school psychologist hours. The other 2 episodes were in [...] a stress test. He is seeing his anodic treater on December 02. The patient will bring this up with his anodic treater and I will send him a copy [...] I will discuss this with the patient's anodic treater to see if they can arrange for this where Mr. Quispe lives in [place]. We will await PET scan and genetics. I will see him back in the office in 6 months. I left a message on the patient's cell phone after our visit to discuss the above. I also left a message with his anodic treater asking him to call me to discuss [...] hour. His monitor is followed by his anodic treater. He continues to have frequent PVCs as [...] will obtain his recent echo from his anodic treater office. His main concern is fatigue, anemia and chronic kidney disease. He has follow-up with nephrology next week. I have asked him to call us if he develops any palpitations. He has close follow-up with his anodic treater. I would like to see him back [...] he will be following up with his anodic treater regarding alternative procedures, possibly a Watchman to [...] in 6 months. Not available 06/01/2024 16:15:40 07/06/2024 07/06/2024 Patient came in to office [...] NSVT, others were atrial in nature. Angelita jeffrey was made aware, no change to POC. We discussed OAC which is what our recommendation is at this point he wants to explore if a watchman can be done on his excised GABRIEL. , he is set up to see a new cardiology MD in [facility] in August, I did offer to [...] For Internal Use Only, Do Not Delete/merge, [id number] 06/01/2024 16:16:49 electroca rdiogram 2023 024 In-House Results, For Internal Use Only, Do Not Delete/merge, [id number] 12/05/2023 16:24:44 electroca rdiogram 2023 024 In-House Results, For Internal Use Only, Do Not Delete/merge, [id number] 06/06/2023 16:39:34 electroca rdiogram 2022 023 In-House Results, For Internal Use Only, Do Not Delete/merge, [id number] 11/26/2022 16:14:21 Medication Orders None recorded. Patient TargetsNo targets recorded. Patient Instructions Encounter Date Encounter Id Patient Instructions Last Modified By Organization Details Last Modified Time 11/26/2022 [id number] I spent a total of {{# of minutes 35#}} minutes on the same date of service providing pbyq-hf-tpgi and wbh-nbrv-iw-face patient care. Not available 11/26/2022 15:59:24 06/06/2023 [id number] I spent a total of {{# of minutes 35#}} minutes on the same date of service providing robz-lb-smxw and roc-odaj-vc-face patient care. Not available 06/06/2023 16:54:15 12/05/2023 [id number] I spent a total of {{# of minutes 35#}} minutes on the same date of service providing lmor-ow-dqap and fgr-mrsn-ov-face patient care. Not available 12/05/2023 16:23:56 06/01/2024 [id number] I spent a total of {{# of minutes 35#}} minutes on the same date of service providing wyga-lb-zokv and opa-pkzy-bw-face patient care. Not available 06/01/2024 16:16:54 Reason for Referral None Reported. Results Created Date Observation Date Name Description Value Unit Range Abnormal Flag Note LastModifiedBy Organization Detail LastModifiedTime 11/27/1911/26/2022 elect tra waite am No observ ation record ed. YOUSUF In-House Results For Internal Use Only, Do Not Delete/merge, [id number] 11/26/2022 16:14:20 11/27/19 elect rocar diogr am No observ ation record ed. [email or web address] Not Available 10/2022 06:56:31 12/06/19 23 11/26/2022 devic e check (PROC ) No observ ation record ed. [email or web address] Not Available 2022 23:01:26 06/02/19 24 12/16/2022 trans -thor acic echoc ardio gram (TTE) (PROC ) No observ ation record ed. [facility] [address], [place], [address], 06/02/2023 13:58:09 06/06/19 24 06/06/2023 elect rocar diogr am No observ ation record ed. YOUSUF In-House Results For Internal Use Only, Do Not Delete/merge, [id number] 06/06/2023 16:39:33 06/06/19 elect rocar diogr am No observ ation record ed. Not Available 2023 16:43:35 06/19/19 24 06/08/2023 devic e check (PROC ) No observ ation record ed. [email or web address] Not Available 2023 11:37:54 06/22/19 24 06/22/2023 PET, heart No observ ation record ed. [email or web address] [facility], [place], [address], 06/23/2023 09:16:18 12/05/19 24 12/05/2023 elect rocar diogr am No observ ation record ed. YOUSUF In-House Results For Internal Use Only, Do Not Delete/merge, [id number] 12/05/2023 16:25:03 12/05/19 elect rocar diogr am No observ ation record ed. Not Available 2023 16:25:04 12/06/19 24 11/29/2023 , echoc ardio gram No observ ation record ed. [email or web address] Not Available 10:41:26 12/11/19 24 12/05/2023 devic [...] For Internal Use Only, Do Not Delete/merge, [id number] 06/01/2024 16:16:01 06/01/19 elect rocar diogr am No observ ation record ed. [email or web address] Not Available 06/04 08:55:40 06/06/19 25 04/13/2024 , echo ardio gram, trans esoph ageal No observ ation record ed. [facility] [facility], [place], [address], 06/06/2024 09:41:52 06/11/19 25 06/01/2024 devic e check (PROC ) No observ ation record ed. [email or web address] Not Available 2024 16:11:44 07/08/19 25 07/06/2024 devic e check (PROC ) No observ ation record ed. [email or web address] Not Available 2024 09:26:43 Result Notes None recorded. Problems Name Problem SNOMED Code Status Onset Date Resolution Date Notes Provider Name and Address Organization Details Recorded Time Atrial flutter 0460373 Active ALEJANDRO Ma [facility] 2 14:43:55 Persisten t atrial fibrillat ion 240715457 Active ALEJANDRO Ma [facility] 2 14:44:26 Rupture of tendon 420787399 Active Nontrauma tic L ankle ALEJANDRO Ma [facility] 2 14:45:26 History of cardiover vita 827085930548 08 Active ALEJANDRO Ma [facility] 2 14:45:57 Cerebrova scular accident 789167215 Active Janeyovani Watt null, [place] - [facility] 2 14:46:07 Dyspnea 007693176 Active [facility] Shukri null, [place] [facility] 2 14:46:19 Insomnia 914134936 Active Janeyovani Watt null, [place] - [facility] 2 14:46:34 Nerve injury 94439725 Active Right Arm Janeyovani Watt null, [place] [facility] 2 14:47:21 Arthritis 9866768 Active Right Foot Jane Shukri null, [place] - [facility] 2 14:47:56 Cardiac arrhythmi a 810455594 Active 2022 Arden Cosme null, [facility] 3 13:53:39 Palpitati ons 31908061 Active 2022 ARCHANA CARIAS [address] [place] [address], [place], [address], [facility] [place] 3 14:57:10 Paroxysma l atrial fibrillat ion 606155026 Active 2022 ARCHANA CARIAS [address] [place] [address], [place], [address], [place] - [facility] 3 14:59:34 Ventricul ar premature beats 83341838 Active 2022 ARCHANA CARIAS [address] FLOOR, [place], [address], [facility] - [facility] 3 14:59:56 Left atrial appendage absent 702358313 Active 2022 s/p clipping of GABRIEL at time of MV repair, 2021 ARCHANA Cooper [address] [place] [address], [place], [address], [facility] - [facility] 4 09:17:42 Left bundle branch hemiblock 3085584 Active 2022 ARCHANA CARIAS 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 XT MRI DEVICE SERIAL NUMBER [id number] G DEVICE TYPE Pacemaker DATE OF IMPLANT 28-Nov-19 22 pt transferr ed into 's remote clinic from [place] 12/13/2023 Phoebe Mccracken RN [address] [place] [address], [place], [address], [place] - [facility] 4 12:20:39 Nonsustai marcelo ventricul ar tachycard ia 965161772 Active 2023 ARCHANA Cooper [address] [place] [address], [place], [address], [facility] 4 12:44:39 Problem Notes None recorded. Procedures Surgical History Date Name Laterality Status Provider Name and Address Organization Details Recorded Time 06/01/19 25 In-person Programming of Pacemaker: Dual Chamber CPT 45874,26 completed ARCHANA Cooper [address] [place] [address], [place], [address], [place] [facility] 06/01/2024 16:12:50 05/14/19 25 insertion of stent into urethra completed Joi loya [place] - [facility] 06/01/2024 15:31:08 12/05/19 24 In-person Programming of Pacemaker: Dual Chamber CPT 86061,26 completed [address] Cooper [address] [place] [address], [place], [address], [place] - [facility] 12/05/2023 16:20:31 06/06/19 24 In-person Programming of Pacemaker: Dual Chamber CPT 34539,26 completed ARCHANA Cooper [address] [place] [address], [place], [address], [place] - [facility] 06/07/2023 12:27:03 11/27/19 23 In-person Programming of Pacemaker: Dual Chamber CPT 56005,26 completed ARCHANA Cooper [address] FLOOR, [place], [address], [place] - [facility] 11/26/2022 16:11:31 05/27/19 23 In-person Programming of Pacemaker: Dual Chamber CPT 73156,26 completed ARCHANA CARIAS [address] [place] [address], [place], [address], [place] - [facility] 05/27/2022 15:17:02 04/25/19 23 Hernia repair: Incisional completed Jane Watt [place] - [facility] 12/05/2023 15:26:37 02/05/20 22 In-person Programming of Pacemaker: Dual Chamber CPT 55192,26 completed Jordon Orozco MD [address] [place] [address], [place], [address], [place] - [facility] 02/04/2022 17:05:28 11/28/19 22 cardiac pacemaker procedure completed Han Mills RN [address] [place] [address], [place], [address], [place] - [facility] 02/04/2022 16:16:27 11/13/19 22 Maze procedure completed Han Mills RN [address] [place] [address], [place], [address], [place] - [facility] 11/24/2021 13:27:31 11/13/19 22 atrial appendage excision completed Han Mills RN [address] [place] [address], [place], [address], [place] - [facility] 11/24/2021 13:27:59 04/25/19 22 Other [facility] 12/05/2023 15:26:37 04/25/19 22 Pacemaker completed Jane Shukri ALEJANDRO [facility] 12/05/2023 15:26:37 03/16/20 21 catheter ablation of arrhythmogenic focus [facility] 09/23/2021 14:50:10 05/07/19 21 catheter ablation of arrhythmogenic focus completed Janeyovani [facility] 09/23/2021 14:49:31 05/07/19 21 catheter ablation of arrhythmogenic focus completed Jane Shukri [facility] 09/23/2021 14:49:45 04/25/19 21 Hernia repair: [facility]guinal [facility] 12/05/2023 15:26:37 04/25/19 19 Cataract removal / Lens implant [facility] 12/05/2023 15:26:37 04/25/19 13 operative procedure on cartilage [facility] 09/23/2021 14:51:05 04/25/19 13 Shoulder joint surgery completed Jane Shukriaxel ALLEN [facility] 09/23/2021 14:51:34 04/25/19 13 Shoulder repair [facility] 12/05/2023 15:26:37 04/25/19 02 LASIK completed Jane Shukriaxel ALLEN [facility] 12/05/2023 15:26:37 Tonsillectomy [facility] 09/23/2021 14:52:05 repair of mitral valve completed Han Mills RN [address] [place] [address],[address], [place], [address], [facility] 11/24/2021 13:31:59 Imaging Results Imaging Date Name Status LastModified by Organization Details LastModified Time 11/26/2022 electrocardiogram completed [facility]F In-Hous e Results For Internal Use Only, Do Not Delete/merge, [id number] 11/26/2022 16:14:20 11/26/2022 electrocardiogram completed [email or web address] Infor mation not available 11/29/2022 06:56:31 11/26/2022 device check (PROC) completed [email or web address] Infor mation not available 12/05/2022 23:01:26 12/16/2022 trans-thoracic echocardiogram (TTE) (PROC) [email or web address] [address] [place] [address], [address], 06/02/2023 13:58:09 06/06/2023 electrocardiogram completed YOUSUF In-Hous e Results For Internal Use Only, Do Not Delete/merge, [id number] 06/06/2023 16:39:33 06/06/2023 electrocardiogram completed Informa tion not available 06/06/2023 16:43:35 06/08/2023 device check (PROC) completed [email or web address]-440 Infor mation not available 06/19/2023 11:37:54 06/22/2023 PET, heart completed [email or web address] [facility] [address] [place] [address] [address], [place], [address], 06/23/2023 09:16:18 12/05/2023 electrocardiogram completed YOUSUF In-Hous e Results For Internal Use Only, Do Not Delete/merge, [id number] 12/05/2023 16:25:03 12/05/2023 electrocardiogram completed Informa tion not available 12/05/2023 16:25:04 11/29/2023 US, echocardiogram completed [email or web address] Inf ormation not available 12/06/2023 10:41:26 12/05/2023 [...] For Internal Use Only, Do Not Delete/merge, [id number] 06/01/2024 16:16:01 06/01/2024 electrocardiogram completed [email or web address] Informa tion not available 06/04/2024 08:55:40 04/13/2024 US, echocardiogram, transesophageal completed [facility] [address] [place] [address] [address], [place], [address], 06/06/2024 09:41:52 06/01/2024 device check (PROC) completed [email or web address] Infor mation not available 06/11/2024 16:11:44 07/06/2024 device check (PROC) completed [email or web address] Infor mation not available 07/07/2024 09:26:43 Procedure Notes None recorded. Medical Equipment None Reported. Allergies Allergen ID Allergen Name Allergen Category Reaction Reaction Severity Criticality Documentation Date Start Date Code Code System Note Provider Name and Address Organization Details Recorded Time 374458 metoprolo l Not available dizziness palpitati ons severe Not available Not available 09/23/2021 6918 RxNorm Jane guajardo, [facility]DRO [facility] 2 14:56:20 277785 Substance with sulfonami de structure and antibacte rial mechanism of action (substanc e) medicatio n Not available Not available Not available 09/23/2021 73628 8003 SNOMED Unsur e Child moreland react ion ALEJANDRO Ma [facility] 2 14:57:02 541082 gabapenti n medicatio n other moderate Not available 02/04/2022 44497 RxNorm Beni ce & gate Han Mills RN [address], [place], [address], [facility] 2 16:11:28 753870 Product containin g 3-hydroxy -3-methyl glutaryl- coenzyme A reductase inhibitor (product) medicatio n muscle cramps severe Not available 02/04/2022 44244 009 SNOMED Han Mills RN [address], [place], [address], [facility] 2 16:12:03 847672 amoxicill in medicatio n rash Not available Not available 11/26/2022 723 RxNorm David Rivas bennett, [facility] 3 15:16:47 Medications Name Sig [...] Updated DateTime 11/26/2022 187.96 cm 23.1 kg/m2 05579.63 g 112 mm[Hg] 64 mm[Hg] David Rivas [facility] 3 15:22:35 Date Recorded Body height Body mass index (BMI) Body weight Respiratory rate Heart rate Oxygen saturation Oxygen saturation in Arterial blood by Pulse oximetry Systolic blood pressure Diastolic blood pressure Provider Name and Address Organization Details Last Updated DateTime 4 187.96 cm 23.1 kg/m2 47541.6 3 g 16 /min 62 /min 99 % 99 % 110 mm[Hg] 62 mm[Hg] Lona Arellano [facility] 4 15:20:27 Date Recorded Body height Body mass index (BMI) Body weight Respiratory rate Body temperature Oxygen saturation Oxygen saturation in Arterial blood by Pulse oximetry Heart rate Systolic blood pressure Diastolic blood pressure Provider Name and Address Organization Details Last Updated DateTime 4 187.96 cm 24.4 kg/m2 23352.5 5 g 16 /min 99.1 [degF] 99 % 99 % 55 /min 126 mm[Hg] 70 mm[Hg] Jane Watt [facility] 4 15:37:28 Date Recorded Body height Body mass index (BMI) Body weight Respiratory rate Heart rate Oxygen saturation Oxygen saturation in Arterial blood by Pulse oximetry Systolic blood pressure Diastolic blood pressure Provider Name and Address Organization Details Last Updated DateTime 5 187.96 cm 25 kg/m2 49479.5 1 g 16 /min 74 /min 98 % 98 % 118 mm[Hg] 68 mm[Hg] Joi shalini [facility] 5 15:34:54 Social History Question Answer Notes LastModified by Organizat ion Details LastModified Time Tobacco Smoking Status Former Smoker quit greater than 40 years Annette Cuellar RN [address] [place] [address],[address], [place], [address], [facility] 09/28/2021 13:21:29 Do You Have An Advance Directive? Yes [email or web address] Information not available 06/06/2023 What Is Your Level Of Alcohol Consumption? Occasional Information not available 11/26/2022 How Many Times Per Week Do You Consume Alcohol? Less Than 1 Time Per Week Information not available 06/06/2023 Is Blood Transfusion Acceptable In An Emergency? Yes [email or web address] Information not available 06/06/2023 What Is Your Level Of Caffeine Consumption? Moderate 1-2 Cups Of Coffee Information not available 06/06/2023 What Type Of Diet Are You Following? CARDIAC Information not available 09/28/2021 When Did You Quit Smoking? 16+yearssincel [email or web address] Information not available 06/06/2023 Do You Have A Manager E Learning (loved One Involved In Your Care)? No Information not available 11/26/2022 Do You Feel Safe At Home? Yes Information not available 09/28/2021 Over The Last 3 Months, Have You Struggled With Housing? No [email or web address] Information not available 12/05/2023 Over The Last 3 Months, Have You Struggled With Access To Food? No [email or web address] Information not available 12/05/2023 Over The Last 3 Months, Have You Struggled With Utilities? No [email or web address] Information not available 12/05/2023 Over The Last 3 Months, Have You Struggled With Transportation? No [email or web address] Information not available 12/05/2023 Over The Last 3 Months, Have You Trafalgar Unsafe In Your Relationship? No [email or web address] Information not available 12/05/2023 What Was The Date Of Your Most Recent Tobacco Screening? 06/01/2024 [email or web address] Information not available 06/01/2024 How Many Children Do You Have? 2 Information not available 09/28/2021 Do You Use Any Illicit Or Recreational Drugs? No [email or web address] Information not available 06/06/2023 Has Tobacco Cessation Counseling Been Provided? No [email or web address] Information not available 12/05/2023 How Many Years [...] Organization Details LastModified Time Mother Dementia 97 [email or web address] Not availa ble 09/23/2021 14:55:32 Father Family history of stroke 87 [email or web address] Not available 04/2021 14:55:47 Notes:11/26/22 Medical History [...] SNOMED-CT Code Diagnosis ICD10 Code Diagnosis Note [id number] Devorah Pan APRN Cardiac EP [address] [place], [place] [address] 09/28/2021 12:47:43 09/28/2021 14:08:29 Cardiac arrhythmia 548480961 I49.9 Paroxysmal atrial fibrillation 231056488 I48.0 Cardiomyopathy 38476883 I42.9 [id number] Jordon Orozco MD Cardiac EP [place] [address] [facility],[address] [place], [place] [address] 02/04/2022 15:47:13 02/04/2022 17:17:51 Palpitations 03601630 R00.2 [id number] ARCHANA CARIAS Cardiac EP [place] [address] [facility],[address] [place], [place] [address] 05/27/2022 13:34:44 05/27/2022 14:36:21 Cardiac arrhythmia 190520465 I49.9 Palpitations 28352340 R0 0.2 History of radiofrequency ablation operation for arrhythmia 339063791 Z98.890 Paroxysmal atrial fibrillation 975446566 I48.0 Ventricula r premature beats 44040833 I49.3 History of maze procedure for atrial fibrillation 875498730 Z98.890 History of repair of mitral valve 408100514 Z98.890 Left atria l appendage absent 827467830 Q20.8 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 16744955 I44.4 Cardiomyopathy 36469089 I42.9 [id number] Angelita Luke, PA Cardiac EP [facility] [place] [address] [place] [address] 11/26/2022 14:57:35 11/26/2022 16:03:00 Cardiac arrhythmia 544968478 I49.9 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 93523059 I44.4 Persistent atrial fibrillation 724680430 I48.19 Cardiac pa cemaker in situ 282415314 Z95.0 [id number] Angelita Luke PA Cardiac EP [facility] [place] [address] [place] [phone] 06/06/2023 14:43:25 06/06/2023 16:06:44 Cardiac arrhythmia 891327559 I49.9 Atrial flutter 5480884 I 48.92 Cardiac pa cemaker in situ 029989814 Z95.0 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 90766771 I44.4 Nonsustain ed monomorphic ventricular tachycardia 9646595275 I47.29 [id number] Angelita Luke PA Cardiac EP [facility] [place] [address] [place] [phone] 12/05/2023 15:13:26 12/05/2023 16:18:04 Cardiac arrhythmia 821554280 I49.9 Atrial flutter 1842587 I 48.92 Cardiac pa cemaker in situ 588064453 Z95.0 Nonsustain ed ventricular tachycardia 508161667 I47.20 [id number] Angelita Luke PA Cardiac EP [facility] [place] [address] [place] [phone] 06/01/2024 15:17:26 06/04/2024 11:25:01 Cardiac arrhythmia 564048492 I49.9 Cardiac pa cemaker in situ 427972321 Z95.0 Atrial flutter 8689512 I 48.92 Left atria l appendage absent 412956925 Q20.8 [id number] Annette Cuellar RN Cardiac EP [facility] [place] [address] [facility] [address] [place] [address] 07/06/2024 13:31:20 07/06/2024 14:46:18 Health Concerns Section Related Observation LastModified by Organization Detai ls LastModified Time None Recorded Concern Status LastModified by Organization Details LastModified Time None Recorded Advance Directives Directive Y: Payers Encounter Date Sequence Insurance Name Policy Number Policy Shelby Covered Member ID Shelby Member ID Guarantor Name 11/26/2022 1 MEDICARE B-[place]: NGS Eliazar Quispe [id number] Eliazar Quispe 11/26/2022 2 [place] [id number] Eliazar Quispe [id number] Eliazar Quispe 06/06/2023 1 MEDICARE B-CT: NGS Eliazar Quispe [id number] 24 Eliazar Berriosinger 06/06/2023 2 [place] [id number] Eliazar Quispe [id number] 248 Eliazar Quispe 12/05/2023 1 MEDICARE B-CT: NGS Eliazar Quispe [id number] 24 Eliazar Berriosinger 12/05/2023 2 [place] [id number] Eliazar Quispe [id number] 248 Eliazar Quispe 06/01/2024 1 MEDICARE B-CT: NGS Eliazar Quispe [id number] 24 Eliazar Berriosinger 06/01/2024 2 [place] [id number] Eliazar Quispe [id number] 248 Eliazar Berriosinger 07/06/2024 1 MEDICARE B-CT: NGS Eliazar Quispe [id number] 24 Eliazar Quispe 07/06/2024 2 [place] [id number] Eliazar Quispe [id number] 248 Eliazar Quispe Notes Date Note Type Note Provider Name and Address Organization Details Recorded Time 11/26/2022 text/html To review, Mr. Eliazar Quispe [...] excellent health. 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 He was referred to Dr. White at [facility]. As far as I can tell, [...] that time.More recently, he was admitted to [facility] on 01/18/20 with increasing shortness of [...] that admission, he had an echocardiogram at [facility] done on 01/16/20. This showed that [...] been on benadryl with skin discomfort and UniEdvertm did not work; he has some relief with Ambien.He is single, he has a daughter Ellie Quispe who works in orthopedics for [employer]. He has a son Han who lives in [place].I would note that one of the possibilities [...] distribution.His preadmission lab studies were drawn at [facility]. His vitamin B12 level was [...] also showed 2500 PACs. We reviewed his VesselVanguard ari which showed episodes of possible A. [...] I asked that he follow-up with his anodic treater regarding the mitral regurgitation noted on his echocardiogram.He did have a hernia repair shortly after that visit.However in December 2020 he was found to have atrial flutter on his [employer] ApSa ari which was also confirmed on an EKG.He was brought to the EP lab on March 16, [address] Deras and underwent a successful ablation of mitral valve flutter with both epicardial and endocardial ablation. He was seen at [facility] in April 2021. He denied any recurrence of arrhythmias or palpitations. He was using his cardia monitor daily which did not show any atrial fibrillation or rapid heartbeats. He reported occasional chest discomfort and we asked him to follow-up with his anodic treater. We also felt he should have another [...] remote monitoring is being followed by his anodic treater. ARCHANA Cooper [address] [facility],[address], [place], [address], [facility], [facility] 11/26/2022 16:26:06 06/06/2023 text/html To review, [...] excellent health. 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 He was referred to Dr. White at [facility]. As far as I can tell, [...] that time.More recently, he was admitted to [facility] on 01/18/20 with increasing shortness of [...] that admission, he had an echocardiogram at [facility] done on 01/16/20. 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 His vitamin B12 level was [...] also showed 2500 PACs. We reviewed his VesselVanguard ari which showed episodes of possible A. [...] I asked that he follow-up with his anodic treater regarding the mitral regurgitation noted on his echocardiogram.He did have a hernia repair shortly after that visit.However in December 2020 he was found to have atrial flutter on his VesselVanguard ari which was also confirmed on an EKG.He was brought to the EP lab on March 16, [address] Deras and underwent a successful ablation of mitral valve flutter with both epicardial and endocardial ablation. He was seen at [facility] in April 2021. He denied any recurrence of arrhythmias or palpitations. He was using his cardia monitor daily which did not show any atrial fibrillation or rapid heartbeats. He reported occasional chest discomfort and we asked him to follow-up with his anodic treater. We also felt he should have another [...] and he had a follow-up with his anodic treater. PVC counters showed 75/h. He had an [...] to his discomfort. He is seeing his anodic treater tomorrow. He has a home monitor which is being followed by his anodic treater. ARCHANA Cooper [address] [facility],[address], [place], [address], [facility], [facility] 06/08/2023 10:07:34 12/05/2023 text/html To review, [...] excellent health. 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 He was referred to Dr. Wihte at [facility]. As far as I can tell, [...] that time.More recently, he was admitted to [facility] on 01/18/20 with increasing shortness of [...] that admission, he had an echocardiogram at [facility] done on 01/16/20. 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 His vitamin B12 level was [...] also showed 2500 PACs. We reviewed his VesselVanguard ari which showed episodes of possible A. [...] I asked that he follow-up with his anodic treater regarding the mitral regurgitation noted on his echocardiogram.He did have a hernia repair shortly after that visit.However in December 2020 he was found to have atrial flutter on his [employer] ApSa ari which was also confirmed on an EKG.He was brought to the EP lab on March 16, [address] Deras and underwent a successful ablation of mitral valve flutter with both epicardial and endocardial ablation. He was seen at [facility] in April 2021. He denied any recurrence of arrhythmias or palpitations. He was using his cardia monitor daily which did not show any atrial fibrillation or rapid heartbeats. He reported occasional chest discomfort and we asked him to follow-up with his anodic treater. We also felt he should have another [...] and he had a follow-up with his anodic treater. PVC counters showed 75/h. He had an [...] of breath, palpitations, near-syncope or syncope. ARCHANA Cooper.,[address], [place], [address], [facility], [facility] 12/05/2023 16:24:46 06/01/2024 text/html To review, [...] excellent health. 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 He was referred to Dr. White at [facility]. As far as I can tell, [...] that time.More recently, he was admitted to [facility] on 01/18/20 with increasing shortness of [...] that admission, he had an echocardiogram at [facility] done on 01/16/20. 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 His vitamin B12 level was [...] also showed 2500 PACs. We reviewed his VesselVanguard ari which showed episodes of possible A. [...] I asked that he follow-up with his anodic treater regarding the mitral regurgitation noted on his echocardiogram.He did have a hernia repair shortly after that visit.However in December 2020 he was found to have atrial flutter on his VesselVanguard ari which was also confirmed on an EKG.He was brought to the EP lab on March 16, [address] Deras and underwent a successful ablation of mitral valve flutter with both epicardial and endocardial ablation. He was seen at [facility] in April 2021. He denied any recurrence of arrhythmias or palpitations. He was using his cardia monitor daily which did not show any atrial fibrillation or rapid heartbeats. He reported occasional chest discomfort and we asked him to follow-up with his anodic treater. We also felt he should have another [...] and he had a follow-up with his anodic treater. PVC counters showed 75/h. He had an [...] disease. 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 We noted frequent PVCs on his device [...] We also left a message with his anodic treater to consider a CESILIA to see if the left atrial appendage is completely walled off as he had a resection at the time of his MVR/MAZE. Since that time, he reports having a CESILIA through his anodic treater which apparently showed a leak at the left atrial appendage clipping site. The patient contacted our office for our recommendations. Given his elevated [id number] score of 5, I recommended that he restart Eliquis. He declined going back on the medication and understood there is a risk of stroke. We also recommended he see a structural anodic treater to see if he is a candidate for a Watchman procedure depending on the size of the left atrial appendage leak. I offered to send him to a physician in [place] but since he lives in [place], he wanted to find someone in his area. He comes in today for follow-up. He is feeling well and denies palpitations, chest pain or shortness of breath. He is seeing his anodic treater next month and will be seeing someone regarding the left atrial appendage leak as well. ARCHANA Cooper [address], [place], [address], [facility], [facility] 06/01/2024 16:17:21
--- OUTSIDE RECORDS SUMMARY | 2024-07-09 16:26 | XMS_ITS | Clinical Summary ---
Author Organization [facility] Address [address] [place] [address] Phone Care Team Providers Care Hook And Eye Attacher Name Role Phone Physician, No Pcp Primary [...] complete this topic RSV Immunization Patients Un kikr 20 months Aged Out No longer eligible b ased on patient's age to complete this topic Varicella Vaccines Aged Out No longer eligible based on patient's age to complete this topic Insurance MEDICARE [facility] ([facility]) Care Teams Hook And Eye Attacher Relationship Specialty Start Date End Date Physician, No Pcp PCP - General 10/12/21
--- OUTSIDE RECORDS SUMMARY | 2024-07-09 16:26 | XMS_ITS | Encounter Summary ---
Author Organization [facility] Address [address] [place] [address] Care Team Providers Care Hooking Machine Operator Name Role Phone Gerda Feldman MD Primary Care Provider Jaylen Amin MD Unavailable [phone] Robert Crockett MD Unavailable [phone] Osmel Huerta MD Unavailable [phone] Wil Deras MD Unavailable Encounter Details Date Type Department Care Team (Late st Contact Info) Description 03/11/2021 Telephone [facility] Heart & Vascular [place] - Electrophysiology [address] [place] [address] Wil Deras MD [address] [place] [address] Social History Tobacco Use Types Packs/Day Years [...] on filedocumented in this encounter Care Teams Hooking Machine Operator Relationship Specialty Start Date End Date Po, Gerda Medley MD [address] [place] [address] PCP - General Internal Medicine 02/05/20 Jaylen Amin MD [address] [address] Senior Investigator Cardiovascular Disease 02/05/20 Robert Crockett MD [address] [address] Physician Cardiac Electrophysiology 03/01/2004/29 Osmel Huerta MD [address] [place] [address] Drive [address] [place] [address] Surgery, General 09/04/20 Wil Deras MD [address] [place] [address] Cardiovascular Disease 04/30/21 documented as of this encounter
--- OUTSIDE RECORDS SUMMARY | 2024-07-09 16:26 | XMS_ITS | Encounter Summary ---
Author Organization [facility] Address [address] [place] [address] Care Team Providers Care Community Resource Consultant Name Role Phone Gerda Feldman MD Primary Care Provider Jaylen Amin MD Unavailable Robert Crockett MD Unavailable [phone] Osmel Huerta MD Unavailable [phone] Wil Deras MD Unavailable Encounter Details Date Type Department Care Team (Late st Contact Info) Description 05/22/2020 Scanned Document [address] [place] [address] Provider, Janett, [address] [place] [address] Social History Tobacco Use Types Packs/Day Years [...] on filedocumented in this encounter Care Teams Community Resource Consultant Relationship Specialty Start Date End Date Gerda Feldman MD [address] [place] [address] [place] [address] PCP - General Internal Medicine 02/05/20 Jaylen Amin MD [address] [address] Administrative Library Assistant Cardiovascular Disease 02/05/20 Robert Crockett MD [address] [address] Physician Cardiac Electrophysiology 03/01/2004/29 Osmel Huerta MD [address] [place] [address] Drive [address] [place] [address] Surgery, General 09/04/20 Wil Deras MD [address] [place] [address] Cardiovascular Disease 04/30/21 documented as of this encounter
--- OUTSIDE RECORDS SUMMARY | 2024-07-09 16:26 | XMS_ITS | Encounter Summary ---
Author Organization [facility] Address [address] [place] [address] Care Team Providers Care Deoiling Machine Operator Name Role Phone Gerda Feldman MD Primary Care Provider Jaylen Amin MD Unavailable Robert Crockett MD Unavailable [phone] Osmel Huetra MD Unavailable [phone] Wil Deras MD Unavailable Reason for Visit * Reason Comments Appointment Encounter Details Date Type Department Care Team (Late st Contact Info) Description 01/08/2021 Telephone [facility] Heart & Vascular [place] - Electrophysiology [address] [place] [address] Wil Deras MD [address] [place], [place] [id number] Appointment Social History Tobacco Use Types Packs/Day [...] on filedocumented in this encounter Care Teams Deoiling Machine Operator Relationship Specialty Start Date End Date Gerda Feldman MD [address] [place] [address] [facility] [place] [address] PCP - General Internal Medicine 02/05/20 Jaylen Amin MD [address] [address] Psychiatric Therapist Cardiovascular Disease 02/05/20 Robert Crockett MD [address] [address] Physician Cardiac Electrophysiology 03/01/2004/29 Osmel Huerta MD [address] [facility] [address] [place] [address] Surgery, General 09/04/20 Wil Deras MD [address] [place] [address] Cardiovascular Disease 04/30/21 documented as of this encounter
--- OUTSIDE RECORDS SUMMARY | 2024-07-09 16:26 | XMS_ITS | Encounter Summary ---
Author Organization [facility] Address [address] [place] [address] Care Team Providers Care Wood Heel Finisher Name Role Phone Gerda Feldman MD Primary Care Provider Jaylen Amin MD Unavailable [phone] Robert Crockett MD Unavailable [phone] Osmel Huerta MD Unavailable [phone] Wil Deras MD Unavailable Reason for Visit * Reason Comments Advice Only Encounter Details Date Type Department Care Team ([facility] st Contact Info) Description 05/16/[address] [address] Robert Crockett MD [address] [place] [address] [address] [place] [address] Advice Only Social History Tobacco [...] was very grateful. He stated he called [facility] and they havehim on a cancellation [...] need to be cleared by his general computing systems mechanic. Patient stated his computing systems mechanic will not clear him until he sees [...] Patient states he booked his holter at [facility] in [place] since he lives close but it is not scheduled until 06/05. Patient would like to know if he needs to reschedule the 06/06appointment. Please advise. documented in this encounter Plan of Treatment Not on file documented as of this encounter Visit Diagnoses Not on filedocumented in this encounter Care Teams Wood Heel Finisher Relationship Specialty Start Date End Date Po, Gerda Medley MD [address] [place] [address] [place] [address] PCP - General Internal Medicine 02/05/20 Jaylen Amin MD [address] [address] Manager Stone Cardiovascular Disease 02/05/20 Robert Crockett MD [address] [address] Physician Cardiac Electrophysiology 03/01/2004/29 Osmel Huerta MD [address] [place] [address] Drive [address] [place] [address] Surgery, General 09/04/20 Wil Deras MD [address] [place] [address] Cardiovascular Disease 04/30/21 documented as of this encounter
--- OUTSIDE RECORDS SUMMARY | 2024-07-09 16:26 | XMS_ITS | Clinical Summary ---
Author Organization [facility] Address [address] [place] [address] Care Team Providers Care Construction Management Instructor Name Role Phone Gerda Feldman MD Primary Care Provider [phone] Jaylen Amin MD Unavailable [phone] Osmel Huerta MD Unavailable [phone] Wil Deras MD Unavailable Allergies Active [...] Take 400 mcg by mouth daily. Active [place]-3 Fatty Acids (FISH OIL PO) Take by mouth daily. Active Active Problems Problem Noted Date Diagnosed Date Atrial flutter 02/03/2021 Overview (02/03/2021): Added automatically from request for surgery [id number] Persistent atrial fibrillation 05/07/2020 Tendon rupture, nontraumatic [...] 7:40 PM 03/16/2021 6:29 AM Care Teams Construction Management Instructor Relationship Specialty Start Date End Date Po, Gerda Medley MD [address] [place] [address] PCP - General Internal Medicine 02/05/20 Jaylen Amin MD [address] [place] [address] Screen Printing Supervisor Cardiovascular Disease 02/05/20 Osmel Huerta MD [address] [place] [address] Drive [address] [place] [address] Surgery, General 09/04/20 Wil Deras MD [address] [place] [address] Cardiovascular Disease 04/30/21
== END 2024-07-09 15:18 | disposition home or self-care (01) ==
LOC: HO.HMCH 13:58
PROVIDERS: PCP Internal Medicine; Visit Provider Internal Medicine
DX: I48.0 Paroxysmal atrial fibrillation (principal); N18.4 Chronic kidney disease, stage 4 (severe); E78.00 Pure hypercholesterolemia, unspecified; G47.33 Obstructive sleep apnea (adult) (pediatric); Z99.89 Dependence on other enabling machines and devices; I25.10 Atherosclerotic heart disease of native coronary artery without angina pectoris

== ENCOUNTER → 2024-07-09 13:58 | Outpatient (BNVA) | payer MEDICARE, SELFPAY | PROVIDERS: PCP Internal Medicine; Visit Provider Internal Medicine | DX: N18.4 Chronic kidney disease, stage 4 (severe) (principal); E78.00 Pure hypercholesterolemia, unspecified; I25.10 Atherosclerotic heart disease of native coronary artery without angina pectoris; I48.0 Paroxysmal atrial fibrillation; G47.33 Obstructive sleep apnea (adult) (pediatric); Z99.89 Dependence on other enabling machines and devices | CPT/HCPCS: 99212 ==

== ENCOUNTER 2024-07-19 11:27 | Outpatient (AMB) | payer MEDICARE, SELFPAY ==
--- NOTE | 2024-07-19 11:28 | A.OFFVIS_ITS ---
Intake Visit Reasons: 2M/IMAGING Intake Note: Patient is present for 2M/IMAGING Urology Medication:NONE Antibiotic Allergy:GABAPENTIN,ATORVASTATIN,ROSUVASTATIN,SULFA,AMOXICILLIN Blood Thinner:ASPIRIN Information Systems Analyst Required: No Allergies gabapentin Allergy (Severe, Verified 08/15/24 08:35) Dizziness atorvastatin Allergy (Intermediate, Verified 08/15/24 08:35) Muscle cramps rosuvastatin Allergy (Intermediate, Verified 08/15/24 08:35) Muscle cramps Sulfa (Sulfonamide Antibiotics) [SULFA(SULFONAMIDE ANTIBIOTICS)] Allergy (Mild, Verified 08/15/24 08:35) RASH metoprolol Adverse Reaction (Severe, Verified 08/15/24 08:35) Chest Pain, sob, dizziness amoxicillin Adverse Reaction (Mild, Verified 08/15/24 08:35) Rash HPI Comments Details: Eliazar is a pleasant male. He is a patient of Dr. Feldman. He seen for the following urologic conditions - chronic hydronephrosis - lower urinary tract symptoms Follow-up stenting with Lasix renogram Lasix renogram - Right kidney cortical function is 18.6% and left kidneys 81.4 percent.The T half post Lasix cannot be calculated the left kidney as there is no response. Activity in the right kidney is insufficient. Chronic hydronephrosis Has had progressive medical renal disease last creatinine 2.3 has been in this range since 2021, 06/19 2.2 Renal ultrasound showing right hydronephrosis with normal parenchyma Lasix renogram 03/18 minimal activity right side, 07/17 with right stent in place minimal response right side. 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 Atherosclerotic cardiovascular disease Normally functioning cardiac pacemaker present Acute kidney injury Generalized anxiety disorder Osteoarthritis of knees, bilateral Obstructive sleep apnea (adult) (pediatric) DVT (deep venous thrombosis) Nasal polyp Asthma Nonrheumatic mitral valve regurgitation Cardiomyopathy Cerebral infarction due to embolism of unspecified cerebral artery PVC (premature ventricular contraction) Anxiety Allergic rhinitis Insomnia Congestive heart failure Gastroesophageal reflux disease Impaired glucose tolerance Congestive heart failure Lupus anticoagulant positive Paroxysmal atrial fibrillation Hypercholesterolemia Surgical History H/O hernia repair Ventral hernia Status post mitral valve repair History of cardiac radiofrequency ablation (~03/16/21) Status post arthroscopy of left knee History of cardioversion (~01/17/20) S/P medial meniscectomy of left knee History of arthroscopy of left knee Hx of repair of right rotator cuff History of tonsillectomy Family History Father HTN (hypertension) CVA (cerebral vascular accident) Mother Skin cancer Maternal Uncle Colon cancer Son No problems noted. Daughter No problems noted. Family/Other Breast cancer Paternal Uncle Colon cancer Social History Housing: House Are you a primary direct care provider to a significant other at home: No Do you presently have visiting nurse or other home services: No Alcohol intake: never Patient Tobacco Use Status: Former Tobacco user Tobacco use type: Cigarette Years Smoked: 12 +/- e-Cigarette/Vaping Use: Never Used Second Hand Smoke Exposure: Yes service: No Current occupational status: retired Cognitive needs: No Hearing needs: No Vision needs: No Review of Systems Const Denies chills and Denies fever(s) Card Reports no additional complaints and Denies syncope Resp Denies cough GI Denies abdominal pain and Denies heartburn Reports as per HPI and Denies change in libido Neuro Denies syncope Psych Denies change in libido Endo Denies change in libido Physical Exam Const General: cooperative, healthy appearing, comfortable and no acute distress Orientation/consciousness: patient oriented x3 HEENT Face and sinus: Yes normal facial exam Mouth: moist mucous membranes Neck Neck: Yes normal visual inspection, Yes full ROM and Yes trachea midline Chest Chest palpation & inspection: normal inspection of the chest Resp Effort & Inspection: normal respiratory effort, able to speak in complete sentences and no respiratory distress GI Inspection: Yes normal to inspection Back/Spine/Pelvis Cervical Spine: normal cervical lordosis Thoracic/Lumbar Spine: thoracic and lumbar spine normal to inspection Skin General skin exam: no rashes or lesions noted Neuro General: patient oriented x3, gait normal, tone normal and moves all extremities Extrem General: Yes normal to inspection and Yes capillary refill normal Assessment & Plan Assessment & Plan (1) Hydronephrosis: Comment: 05/14/24 PreOperative Diagnosis: Right hydronephrosis Post Operative Diagnosis: Right proximal ureteric stricture with hydronephrosis Procedure: - cystoscopy, right retrograde - right dilatation of ureteric orifice under fluoroscopy - right ureteroscopy - dilatation of right proximal ureteric stricture - right stent placement Code(s): N13.30 - Unspecified hydronephrosis Category: Medical Qualifiers: Hydronephrosis type: unspecified Qualified Code(s): N13.30 - Unspecified hydronephrosis (2) Weak urinary stream: Code(s): R39.12 - Poor urinary stream Category: Medical Plan Cystoscopy, stent removal Patient Instructions: This note is constructed using voice recognition software. While every effort has been made to ensure accuracy loss prevention supervisor errors may have been included. Imaging studies, laboratory and physical exam results were discussed and reviewed in detail. No major barriers to patient understanding were identified. An opportunity to ask questions regarding the treatment plan was provided. All questions were answered. The patient expressed understanding and agreement with the above treatment plan. The patient is aware they should contact our office by phone for worsening of their current condition or the appearance of new urologic symptoms. Compliance is encouraged with any medications and followup testing that is ordered. It is a privilege to participate in the urologic care of your patient. If you have any questions or concerns regarding treatment for the above conditions, or other urologic issues, please do not hesitate to contact me. The office telephone contact is [phone]. Sincerely, Dr Antoine Kate MD, RUBÉN [facility] - Urology Compassionate Specialist Care for the Genitourinary System Coding Level of Care Code Est Pt Level 3 (19973) Diagnoses Hydronephrosis, unspecified hydronephrosis type N13.30 Hydronephrosis type: unspecified Weak urinary stream R39.12
== END 2024-07-19 12:26 | disposition home or self-care (01) ==
LOC: HO.HUSH 11:28
PROVIDERS: PCP Internal Medicine; Visit Provider Urology
DX: N13.30 Unspecified hydronephrosis (principal); R39.12 Poor urinary stream
CPT/HCPCS: 99213

== ENCOUNTER → 2024-07-19 11:27 | Outpatient (BNVA) | payer MEDICARE, SELFPAY | PROVIDERS: PCP Internal Medicine; Visit Provider Urology | DX: N13.30 Unspecified hydronephrosis (principal); R39.12 Poor urinary stream | CPT/HCPCS: 99212 ==

== ENCOUNTER 2024-07-25 11:15 | Outpatient (REF) | payer MEDICARE, SELFPAY ==
[2024-07-25 13:14] LABS: MANUAL DIFF FLAG NO
[2024-07-25 13:31] LABS: Basophils Percent Auto 0.5 % (0-2); Eosinophils Absolute Auto 0.6 X10*3/uL (0.0-0.4); Eosinophils Percent Auto 9.4 % (0-4); Hematocrit 39.6 % (42.0-52.0); Hemoglobin 12.7 g/dl (14.0-18.0); Imm Gran Abs Auto 0.02 X10*3/uL (0.00-0.03); Imm Gran Pct Auto 0.3 % (0.0-0.4); Lymphocytes Absolute Auto 1.8 X10*3/uL (1.2-4.9); Lymphocytes Percent Auto 28.3 % (20-40); Mean Corpuscular HGB Conc 32.1 g/dl (31.0-36.0); Mean Corpuscular Hemoglobin 29.8 pg (27.0-33.0); Mean Platelet Volume 9.7 fL (9.4-12.4); Monocytes Absolute Auto 0.7 X10*3/uL (0.1-1.2); Neutrophils Absolute Auto 3.1 x10*3/uL (2.0-8.3); Neutrophils Percent Auto 50.5 % (45-73); Platelet Count 275 X10*3/uL (160-400); Red Blood Count 4.26 X10*6/uL (4.60-5.80); Red Cell Distribution Width 13.5 % (11.0-16.0); White Blood Count 6.2 X10*3/uL (4.8-10.8)
[2024-07-25 13:43] LABS: Estimated Average Glucose 114 mg/dL; Hemoglobin A1C 126.4982 umol/L; Hemoglobin A1c % 5.6 % (<6.0); Total Hemoglobin (HGBA1C) 3394.6755 umol/L
--- OUTSIDE RECORDS SUMMARY | 2024-07-25 13:43 | XMS_ITS | Encounter Summary ---
Author Organization [facility] Address [address] [place] [address] Care Team Providers Care Human Resources Designate Name Role Phone Gerda Feldman MD Primary Care Provider Jaylen Amin MD Unavailable [phone] Robert Crockett MD Unavailable [phone] Osmel Huerta MD Unavailable [phone] Wil Deras MD Unavailable Reason for Visit * Reason Comments Results Encounter Details Date Type Department Care Team ([facility] st Contact Info) Description 09/01/[address] [address] Robert Crockett MD [address] [place] [address] Results Social History Tobacco Use Types [...] on filedocumented in this encounter Care Teams Human Resources Designate Relationship Specialty Start Date End Date Gerda Feldman MD [address] [place] [address] PCP - General Internal Medicine 02/05/20 Jaylen Amin MD [address] [place] [address] Pet Store Merchandiser Cardiovascular Disease 02/05/20 Robert Crockett MD [address] [place] [address] Physician Cardiac Electrophysiology 03/01/2004/29 Osmel Huerta MD [address] [place] [address] [place] [address] Surgery, General 09/04/20 Wil Deras MD [address] [place] [address] Cardiovascular Disease 04/30/21 documented as of this encounter
--- OUTSIDE RECORDS SUMMARY | 2024-07-25 13:43 | XMS_ITS | Encounter Summary ---
Author Organization [facility] Address [address] [place] [address] Care Team Providers Care Otolaryngology Nurse Name Role Phone Gerda Feldman MD Primary Care Provider Jaylen Amin MD Unavailable Robert Crockett MD Unavailable [phone] Osmel Huerta MD Unavailable [phone] Wil Deras MD Unavailable Encounter Details Date Type Department Care Team (Late st Contact Info) Description 03/11/2021 Telephone [facility] Heart & Vascular [place] - Electrophysiology [address] [place] [address] Wil Deras MD [address] [place] [address] Social History Tobacco Use Types Packs/Day Years [...] on filedocumented in this encounter Care Teams Otolaryngology Nurse Relationship Specialty Start Date End Date Po, Gerda Medley MD [address] [place] [address] PCP - General Internal Medicine 02/05/20 Jaylen Amin MD [address] [address] Psychiatric Tech Cardiovascular Disease 02/05/20 Robert Crockett MD [address] [address] Physician Cardiac Electrophysiology 03/01/2004/29 Osmel Huerta MD [address] [place] [address] Drive [address] [place] [address] Surgery, General 09/04/20 Wil Deras MD [address] [place] [address] Cardiovascular Disease 04/30/21 documented as of this encounter
--- OUTSIDE RECORDS SUMMARY | 2024-07-25 13:43 | XMS_ITS | Encounter Summary ---
Author Organization [facility] Address [address] [place] [address] Care Team Providers Care Ornamental Metal Worker Name Role Phone eGrda Feldman MD Primary Care Provider Jaylen Amin MD Unavailable Robert Crockett MD Unavailable [phone] Osmel Huerta MD Unavailable [phone] Wil Deras MD Unavailable Encounter Details Date Type Department Care Team (Late st Contact Info) Description 09/05/2020 Scanned Document [address] [place] [address] Provider, Janett, [address] [place] [address] Social History Tobacco Use Types Packs/Day Years [...] on filedocumented in this encounter Care Teams Ornamental Metal Worker Relationship Specialty Start Date End Date Gerda Feldman MD [address] [place] [address] [place] [address] PCP - General Internal Medicine 02/05/20 Jaylen Amin MD [address] [address] Neurosurgical Physician Assistant Cardiovascular Disease 02/05/20 Robert Crockett MD [address] [address] Physician Cardiac Electrophysiology 03/01/2004/29 Osmel Huerta MD [address] [place] [address] [address] [place] [address] Surgery, General 09/04/20 Wil Deras MD [address] [place] [address] Cardiovascular Disease 04/30/21 documented as of this encounter
--- OUTSIDE RECORDS SUMMARY | 2024-07-25 13:43 | XMS_ITS | Encounter Summary ---
Author Organization [facility] Address [address] [place] [address] Care Team Providers Care Health Social Work Professor Name Role Phone Gerda Feldman MD Primary Care Provider Jaylen Amin MD Unavailable Robert Crockett MD Unavailable [phone] Osmel Huerta MD Unavailable [phone] Wil Deras MD Unavailable Encounter Details Date Type Department Care Team (Late st Contact Info) Description 02/13/2021 Telephone [facility] Heart & Vascular [place] - Electrophysiology [address] [place] [address] Wil Deras MD [address] [place] [address] Social History Tobacco Use Types Packs/Day Years [...] on filedocumented in this encounter Care Teams Health Social Work Professor Relationship Specialty Start Date End Date Gerda Feldman MD [address] [place] [address] [place] [address] PCP - General Internal Medicine 02/05/20 Jaylen Amin MD [address] [address] Shadowgraph Operator Cardiovascular Disease 02/05/20 Robert Crockett MD [address] [address] Physician Cardiac Electrophysiology 03/01/2004/29 Osmel Huerta MD [address] [place] [address] [address] [place] [address] Surgery, General 09/04/20 Wil Deras MD [address] [place] [address] Cardiovascular Disease 04/30/21 documented as of this encounter
--- OUTSIDE RECORDS SUMMARY | 2024-07-25 13:43 | XMS_ITS | Encounter Summary ---
Author Organization [facility] Address [address] [place] [address] Care Team Providers Care Dairy Associate Name Role Phone Gerda Feldman MD Primary Care Provider [phone] Jaylen Amin MD Unavailable Robert Crockett MD Unavailable [phone] Osmel Huerta MD Unavailable [phone] Wil Deras MD Unavailable Encounter Details Date Type Department Care Team (Late st Contact Info) Description 05/06/2020 Prep for Surgery [facility] Heart & Vascular [place] - Electrophysiology [address] [place] [address] [place] [address] Sophie Gtz, [employer] [address] [address] Social History Tobacco Use Types Packs/Day Years [...] documented as of this encounter Care Teams Dairy Associate Relationship Specialty Start Date End Date Gerda Feldman MD [address] [place] [address] [facility] [place] [address] PCP - General Internal Medicine 02/05/20 Jaylen Amin MD [address] [address] Flat Folder Cardiovascular Disease 02/05/20 Robert Crockett MD [address] [address] Physician Cardiac Electrophysiology 03/01/2004/29 Osmel Huerta MD [address] [place] [address] [address] [place] [address] Surgery, General 09/04/20 Wil Deras MD [address] [place] [address] Cardiovascular Disease 04/30/21 documented as of this encounter
--- OUTSIDE RECORDS SUMMARY | 2024-07-25 13:43 | XMS_ITS | Data Portability ---
Author Organization [facility] Mis[facility], [address] Address [address] [place] [address] Assessment No assessment recorded. Plan of Treatment Reminders Order Date Submit Date Provider Last Modified By Organization Details Last Modified Time Details Appointments None recorded. Lab None recorded. Referral otolaryngol ogist referral - feeling dizzy and vertigo especially waking upm in morning. need further evaluation and treatment. 2022 023 [email or web address] 26 Pratik Rivera MD, 100 [facility], [facility] 100, [place], [address], 3 12:51:32 Procedures None recorded. Surgeries None recorded. Imaging None recorded. Medication Orders meclizine 25 mg tablet 2022 023 [id number], [address] [place], [place], [id number], 19:15:43 Patient TargetsNo targets recorded. 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 fo r Benign paroxysmal positional [...] Address Organization Details Recorded Time Essential hypertension 61686210 Active 2022 IRIS COUVERTIE R null, [place] - [facility] 3 18:23:37 Acute kidney injury 25511844 Active 2022 IRIS COUVERTIE R null, [place] - [facility] 3 18:26:17 Insomnia 058756965 Active 2022 IRIS COUVERTIE R null, [place] [...] Name and Address Organization Details Recorded Time 199953 Substance with sulfonami de structure and antibacte rial mechanism of action (substanc e) medicatio n Not available Not available Not available 06/06/2022 23884 8003 SNOMED IRIS COUVERTIE R null, [place] - [facility] 3 18:21:58 493830 gabapenti n medicatio n dizziness Not available Not available 06/06/2022 71235 RxNorm IRIS COUVERTIE R null, [place] - [facility] 3 18:22:14 475151 rosuvasta tin medicatio n edema Not available Not available 06/06/2022 86598 2 RxNorm KRISHNA PEREZ [facility] [place] [facility] [...] TABLETS BY MOUTH EVERY DAY DIRECTED BY [facility] 06/06 completed Not Available [...] Updated DateTime 3 187.96 cm 23.8 kg/m2 42298.5 9 g 100 % 100 % 66 [...] SNOMED-CT Code Diagnosis ICD10 Code Diagnosis Note [id number] [address] [facility] [place] [address] 08/09/2016 14:01:54 08/09/2016 14:52:09 [id number] [address] [facility] [place] [address] 10/08/2019 14:19:37 10/08/2019 15:46:07 [id number] [address] [facility] [place] [address] 06/14/2020 09:23:40 06/14/2020 09:53:11 [id number] [address] [facility] [place] [address] 12/31/2018 10:08:17 12/31/2018 10:53:03 [id number] [address] [facility] [place] [address] 06/08/2016 13:08:05 06/08/2016 14:31:43 [id number] [address] [facility] [place] [address] 01/02/2020 17:09:44 01/02/2020 17:43:56 [id number] [address] [facility] [place] [address] 12/18/2019 15:16:32 12/18/2019 16:26:12 [id number] [address] [place] [address] 02/19/2016 13:00:02 02/19/2016 13:30:00 [id number] [address] [place] [address] 02/13/2016 15:03:43 02/13/2016 15:28:04 [id number] [address] [place] [address] [place] [address] 12/08/2017 08:46:06 12/08/2017 09:50:44 [id number] [address] [place] [address] [place] [address] 03/16/2020 15:48:34 03/16/2020 18:27:17 [id number] [address] [place] [address] [place] [address] 04/30/2020 13:25:07 04/30/2020 18:52:16 [id number] [facility] [address] [facility] [address] 06/06/2022 15:33:14 07/27/2022 19:27:19 Left without being seen [id number] 9102 Z53.21 [id number] Leroy Crandall NP [address] [facility] [place] [address] 06/06/2022 17:13:56 06/06/2022 19:17:57 Benign paroxysmal positional vertigo [id number] H81.10 Health Concerns Section Related Observation LastModified by Organization Detai ls LastModified Time None Recorded Concern Status LastModified by Organization Details LastModified Time None Recorded Advance Directives Directive None Recorded Payers Encounter Date Sequence Insurance Name Policy Number Policy Shelby Covered Member ID Shelby Member ID Guarantor Name 03/16/2020 1 [place] [employer] Eliazar Quispe [id number] Eliazar Quispe 03/16/2020 2 [place] [id number] Eliazar Quispe [id number] Eliazar Quispe 04/30/2020 1 [place] Eliazar Quispe [id number] Eliazar Quispe 04/30/2020 2 [place] [id number] Eliazar Quispe [id number] Eliazar Quispe 06/14/2020 1 [place] Eliazar Quispe [id number] Eliazar Quispe 06/14/2020 2 [place] [id number] Eliazar Quispe [id number] Eliazar Quispe 06/06/2022 1 [place] Eliazar Quispe [id number] Eliazar Quispe 06/06/2022 2 [place] [id number] Eliazar Quispe [id number] Eliazar Quispe 06/06/2022 1 [place] Eliazar Quispe [id number] Eliazar Quispe 06/06/2022 2 [place] [id number] Eliazar Quispe [id number] Eliazar Quispe Notes Date Note Type [...] Crandall NP [address] [place], [address], [place] - [facility] 06/06/2022 19:16:09
--- OUTSIDE RECORDS SUMMARY | 2024-07-25 13:44 | XMS_ITS | Encounter Summary ---
Author Organization [facility] Address [address] [place] [address] Care Team Providers Care Impregnator Name Role Phone Gerda Feldman MD Primary Care Provider Jaylen Amin MD Unavailable Osmel Huerta MD Unavailable [phone] Wil Deras MD Unavailable Encounter Details Date Type Department Care Team (Late st Contact Info) Description 07/24/2024 2:35 PM EDT Ancillary Procedure [facility] [place] [address] Arrived Social History Tobacco Use Types Packs/Day Years [...] on file documented as of this encounter Procedures Procedure Name Priority Date/Time Associated Diagnosis Comments XR FOOT 2 VIEWS-BILATERAL Routine 07/24/2024 2:41 PM EDT Pain in right ankle and joints of right foot XR ANKLE 3+ VIEWS-RIGHT Routine 07/24/2024 2:41 PM EDT Pain in right ankle and joints of right foot documented in this encounter Results * XR Foot 2 views-Right (07/24/2024 2:41 PM EDT) Narrative [facility] - 07/24/2024 2:41 PM EDT This exam was performed in office at [facility] and images reviewed by orthopedic provider. ??Any findings are documented within ambulatory encounter note on date of service. Davi WU DIAGNOSTIC IMAGI NG ORDERABLES Performing Organization Address [facility] Co de Phone Number OA * XR Ankle 3+ views-Right (07/24/2024 2:41 PM EDT) Narrative [facility] - 07/24/2024 2:41 PM EDT This exam was performed in office at [facility] and images reviewed by orthopedic provider. ??Any findings are documented within ambulatory encounter note on date of service. Davi WU DIAGNOSTIC IMAGI NG ORDERABLES Performing Organization Address [facility] Co de Phone Number [facility] documented in this encounter Visit Diagnoses Not on filedocumented in this encounter Care Teams Impregnator Relationship Specialty Start Date End Date Gerda Feldman MD [address] [place] [address] [place] [address] PCP - General Internal Medicine 02/05/20 Jaylen Amin MD [address] [place] [address] Credit Compliance Officer Cardiovascular Disease 02/05/20 Osmel Huerta MD [address] [place] [address] [address] [place] [address] Surgery, General 09/04/20 Wil Deras MD [address] [place] [address] Cardiovascular Disease 04/30/21 documented as of this encounter
--- OUTSIDE RECORDS SUMMARY | 2024-07-25 13:44 | XMS_ITS | Encounter Summary ---
Author Organization [facility] Address [address] [place] [address] Care Team Providers Care Bait Tier Name Role Phone Gerda Feldman MD Primary Care Provider Jaylen Amin MD Unavailable Robert Crockett MD Unavailable [phone] Osmel Huerta MD Unavailable [phone] Wil Deras MD Unavailable Encounter Details Date Type Department Care Team (Late st Contact Info) Description 02/18/2020 Scanned Document [address] [place] [address] Provider, Janett, [address] [place] [address] Social History Tobacco Use Types Packs/Day Years [...] documented as of this encounter Care Teams Bait Tier Relationship Specialty Start Date End Date Gerda Feldman MD [address] [place] [address] [place] [address] PCP - General Internal Medicine 02/05/20 Jaylen Amin MD [address] [address] [place] Cardiovascular Disease 02/05/20 Robert Crockett MD [address] [address] Physician Cardiac Electrophysiology 03/01/2004/29 Osmel Huerta MD [address] [place] [address] Drive [address] [place] [address] Surgery, General 09/04/20 Wil Deras MD [address] [place] [address] Cardiovascular Disease 04/30/21 documented as of this encounter
--- OUTSIDE RECORDS SUMMARY | 2024-07-25 13:44 | XMS_ITS | Encounter Summary ---
Author Organization [facility] Address [address] [place] [address] Care Team Providers Care Customer Sales Specialist Name Role Phone Gerda Feldman MD Primary Care Provider Jaylen Amin MD Unavailable Robert Crockett MD Unavailable [phone] Osmel Huerta MD Unavailable [phone] Wil Deras MD Unavailable Reason for Visit * Reason Comments Appointment Encounter Details Date Type Department Care Team (Late st Contact Info) Description 01/08/2021 Telephone [facility] [place] - Electrophysiology [address] [place] [address] Wil Deras MD [address] [place], [place] [id number] Appointment Social History Tobacco Use Types Packs/Day [...] on filedocumented in this encounter Care Teams Customer Sales Specialist Relationship Specialty Start Date End Date Gerda Feldman MD [address] [place] [address] [facility] [place] [address] PCP - General Internal Medicine 02/05/20 Jaylen Amin MD [address] [address] Data Modeling Architect Cardiovascular Disease 02/05/20 Robert Crockett MD [address] [address] Physician Cardiac Electrophysiology 03/01/2004/29 Osmel Huerta MD [address] [facility] [address] [place] [address] Surgery, General 09/04/20 Wil Deras MD [address] [place] [id number] Cardiovascular Disease 04/30/21 documented as of this encounter
--- OUTSIDE RECORDS SUMMARY | 2024-07-25 13:44 | XMS_ITS | Encounter Summary ---
Author Organization [facility] Address [address] [place] [address] Care Team Providers Care Lining Machine Tender Name Role Phone Gerda Feldman MD Primary Care Provider Jaylen Amin MD Unavailable [phone] Robert Crockett MD Unavailable [phone] Osmel Huerta MD Unavailable [phone] Wil Deras MD Unavailable Encounter Details Date Type Department Care Team (Late st Contact Info) Description 05/22/2020 Scanned Document [address] [place] [address] Provider, Janett, [address] [place] [address] Social History Tobacco Use Types Packs/Day Years [...] on filedocumented in this encounter Care Teams Lining Machine Tender Relationship Specialty Start Date End Date Gerda Feldman MD [address] [place] [address] [place] [address] PCP - General Internal Medicine 02/05/20 Jaylen Amin MD [address] [address] Warehouse Handler Cardiovascular Disease 02/05/20 Robert Crockett MD [address] [address] Physician Cardiac Electrophysiology 03/01/2004/29 Osmel Huerta MD [address] [place] [address] [address] [place] [address] Surgery, General 09/04/20 Wil Deras MD [address] [place] [id number] Cardiovascular Disease 04/30/21 documented as of this encounter
--- OUTSIDE RECORDS SUMMARY | 2024-07-25 13:44 | XMS_ITS | Data Portability ---
Author Organization [facility], [facility], Primary Care [facility] Address [address] [place] [address] Care Team Providers Care Toll Lineman Name Role Phone JORDON OROZCO Clinical Cardiac Electrophysiolo gist FRANCA VELA Internal Salesperson ИВАН YANES Primary Care Provider HAN JONES Cardiac Surgeon CRISTINA LEONARD Entry Level Drafter ANGELITA CHAMBERS Physician Automatic Screwmaker JOSELINE FULTON Urologist Assessment Encounter Date Assessment [...] on September 26 and occurred in the rate clerk hours. The other 2 episodes were in [...] a stress test. He is seeing his tie bucker on December 02. The patient will bring this up with his tie bucker and I will send him a copy [...] I will discuss this with the patient's tie bucker to see if they can arrange for this where Mr. Quispe lives in [place]. We will await PET scan and genetics. I will see him back in the office in 6 months. I left a message on the patient's cell phone after our visit to discuss the above. I also left a message with his tie bucker asking him to call me to discuss [...] hour. His monitor is followed by his tie bucker. He continues to have frequent PVCs as [...] will obtain his recent echo from his tie bucker office. His main concern is fatigue, anemia and chronic kidney disease. He has follow-up with nephrology next week. I have asked him to call us if he develops any palpitations. He has close follow-up with his tie bucker. I would like to see him back [...] he will be following up with his tie bucker regarding alternative procedures, possibly a Watchman to [...] to see a new cardiology MD in [facility] in August, I did offer to [...] For Internal Use Only, Do Not Delete/merge, [id number] 06/01/2024 16:16:49 electroca rdiogram 2023 024 In-House Results, For Internal Use Only, Do Not Delete/merge, [id number] 12/05/2023 16:24:44 electroca rdiogram 2023 024 In-House Results, For Internal Use Only, Do Not Delete/merge, [id number] 06/06/2023 16:39:34 electroca rdiogram 2022 023 In-House Results, For Internal Use Only, Do Not Delete/merge, [id number] 11/26/2022 16:14:21 Medication Orders None recorded. Patient TargetsNo targets recorded. Patient Instructions Encounter Date Encounter Id Patient Instructions Last Modified By Organization Details Last Modified Time 11/26/2022 [id number] I spent a total of {{# of minutes 35#}} minutes on the same date of service providing selm-bt-hswh and tup-vrmv-yn-face patient care. Not available 11/26/2022 15:59:24 06/06/2023 [id number] I spent a total of {{# of minutes 35#}} minutes on the same date of service providing opyz-bo-unyv and wvu-kbix-ko-face patient care. Not available 06/06/2023 16:54:15 12/05/2023 [id number] I spent a total of {{# of minutes 35#}} minutes on the same date of service providing gltx-jw-xmlf and jim-uooo-zu-face patient care. Not available 12/05/2023 16:23:56 06/01/2024 [id number] I spent a total of {{# of minutes 35#}} minutes on the same date of service providing benq-ds-ckwz and dpx-brzi-ry-face patient care. Not available 06/01/2024 16:16:54 Reason for Referral None Reported. Results Created Date Observation Date Name Description Value Unit Range Abnormal Flag Note LastModifiedBy Organization Detail LastModifiedTime 11/27/1911/26/2022 elect tra waite am No observ ation record ed. YOUSUF In-House Results For Internal Use Only, Do Not Delete/merge, [id number] 11/26/2022 16:14:20 11/27/19 elect rocar diogr am No observ ation record ed. [email or web address] Not Available 10/2022 06:56:31 12/06/19 23 11/26/2022 devic e check (PROC ) No observ ation record ed. [email or web address] Not Available 2022 23:01:26 06/02/19 24 12/16/2022 trans -thor acic echoc ardio gram (TTE) (PROC ) No observ ation record ed. [facility] [address], [place], [address], 06/02/2023 13:58:09 06/06/19 24 06/06/2023 elect rocar diogr am No observ ation record ed. YOUSUF In-House Results For Internal Use Only, Do Not Delete/merge, [id number] 06/06/2023 16:39:33 06/06/19 elect rocar diogr am No observ ation record ed. Not Available 2023 16:43:35 06/19/19 24 06/08/2023 devic e check (PROC ) No observ ation record ed. [email or web address] Not Available 2023 11:37:54 06/22/19 24 06/22/2023 PET, heart No observ ation record ed. [email or web address] [facility], [place], [address], 06/23/2023 09:16:18 12/05/19 24 12/05/2023 elect rocar diogr am No observ ation record ed. YOUSUF In-House Results For Internal Use Only, Do Not Delete/merge, [id number] 12/05/2023 16:25:03 12/05/19 elect rocar diogr am No observ ation record ed. Not Available 2023 16:25:04 12/06/19 24 11/29/2023 , echoc ardio gram No observ ation record ed. [email or web address] Not Available 10:41:26 12/11/19 24 12/05/2023 devic [...] For Internal Use Only, Do Not Delete/merge, [id number] 06/01/2024 16:16:01 06/01/19 elect rocar diogr am No observ ation record ed. [email or web address] Not Available 06/04 08:55:40 06/06/19 25 04/13/2024 , echo ardio gram, trans esoph ageal No observ ation record ed. [facility], [place], [address], 06/06/2024 09:41:52 06/11/19 25 06/01/2024 devic e check (PROC ) No observ ation record ed. [email or web address] Not Available 2024 16:11:44 07/08/19 25 07/06/2024 devic e check (PROC ) No observ ation record ed. [email or web address] Not Available 2024 09:26:43 Result Notes None recorded. Problems Name Problem SNOMED Code Status Onset Date Resolution Date Notes Provider Name and Address Organization Details Recorded Time Atrial flutter 5207882 Active ALEJANDRO Ma [facility] 2 14:43:55 Persisten t atrial fibrillat ion 626846894 Active ALEJANDRO Ma [facility] 2 14:44:26 Rupture of tendon 559234834 Active Nontrauma tic L ankle ALEJANDRO Ma [facility] 2 14:45:26 History of cardiover vita 172992075834 08 Active ALEJANDRO Ma [facility] 2 14:45:57 Cerebrova scular accident 627924090 Active Janeyovani Watt null, [place] - [facility] 2 14:46:07 Dyspnea 048304708 Active [facility] null[facility] [place] [facility] 2 14:46:19 Insomnia 422844914 Active Janeyovani Watt null, [place] - [facility] 2 14:46:34 Nerve injury 87590549 Active Right Arm Janeyovani Watt null, [place] [facility] 2 14:47:21 Arthritis 3193854 Active Right Foot Jane Shukri null, [place] - [facility] 2 14:47:56 Cardiac arrhythmi a 624475809 Active 2022 Arden Cosme null, [facility] 3 13:53:39 Palpitati ons 94173118 Active 2022 ARCHANA CARIAS [address] [place] [address], [place], [address], [facility] 3 14:57:10 Paroxysma l atrial fibrillat ion 504862995 Active 2022 ARCHANA CARIAS [address] [place] [address], [place], [address], [place] - [facility] 3 14:59:34 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 Active 2022 ARCHANA CARIAS [address], [place], [address], [facility] - [facility] 3 14:59:56 Left atrial appendage absent 872412104 Active 2022 s/p clipping of GABRIEL at time of MV repair, 2021 ARCHANA Cooper [address] [place] [address], [place], [address], [facility] - [facility] 4 09:17:42 Left bundle branch hemiblock 5395942 Active 2022 ARCHANA CARIAS [address], [place], [address], [place] - [facility] 3 15:03:55 Right 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 XT MRI DEVICE SERIAL NUMBER [id number] DEVICE TYPE Pacemaker DATE OF IMPLANT 28-Nov-19 22 pt transferr ed into 's remote clinic from [place] 12/13/2023 Phoebe Mccracken RN [address] [place] [address], [place], [address], [place] - [facility] 4 12:20:39 Nonsustai marcelo ventricul ar tachycard ia 337061175 Active 2023 ARCHANA Cooper [address] [place] [address], [place], [address], [facility] 4 12:44:39 Problem Notes None recorded. Procedures Surgical History Date Name Laterality Status Provider Name and Address Organization Details Recorded Time 06/01/19 25 In-person Programming of Pacemaker: Dual Chamber CPT 55009,26 completed ARCHANA Cooper [address] [place] [address], [place], [address], [place] [facility] 06/01/2024 16:12:50 05/14/19 25 insertion of stent into urethra completed Joi loya [place] - [facility] 06/01/2024 15:31:08 12/05/19 24 In-person Programming of Pacemaker: Dual Chamber CPT 50656,26 completed ARCHANA Cooper [address] [place] [address], [place], [address], [place] - [facility] 12/05/2023 16:20:31 06/06/19 24 In-person Programming of Pacemaker: Dual Chamber CPT 35657,26 completed ARCHANA Cooper [address] [place] [address], [place], [address], [place] - [facility] 06/07/2023 12:27:03 11/27/19 23 In-person Programming of Pacemaker: Dual Chamber CPT 60452,26 completed ARCHANA Cooper [address], [place], [address], [place] - [facility] 11/26/2022 16:11:31 05/27/19 23 In-person Programming of Pacemaker: Dual Chamber CPT 59359,26 completed ARCHANA CARIAS [address] [place] [address], [place], [address], [place] - [facility] 05/27/2022 15:17:02 04/25/19 23 Hernia repair: Incisional completed Jane Watt [place] - [facility] 12/05/2023 15:26:37 02/05/20 22 In-person Programming of Pacemaker: Dual Chamber CPT 36126,26 completed Jordon Orozco MD [address] [place] [address], [place], [address], [place] - [facility] 02/04/2022 17:05:28 11/28/19 22 cardiac pacemaker procedure completed Han Mills RN [address] [place] [address], [place], [address], [place] - [facility] 02/04/2022 16:16:27 11/13/19 22 Maze procedure completed Han Mills RN [address] [place] [address], [place], [address], [place] - [facility] 11/24/2021 13:27:31 11/13/19 22 atrial appendage excision completed Han Mills RN [address] [place] [address], [place], [address], [place] - [facility] 11/24/2021 13:27:59 04/25/19 22 Other completed Jane Watt [facility] 12/05/2023 15:26:37 04/25/19 22 Pacemaker completed Jane Shukri ALEJANDRO [facility] 12/05/2023 15:26:37 03/16/20 21 catheter ablation of arrhythmogenic focus [facility] 09/23/2021 14:50:10 05/07/19 21 catheter ablation of arrhythmogenic focus [facility] 09/23/2021 14:49:31 05/07/19 21 catheter ablation of arrhythmogenic focus completed Jane [place] [facility] 09/23/2021 14:49:45 04/25/19 21 Hernia repair: [facility]guinal [facility] 12/05/2023 15:26:37 04/25/19 19 Cataract removal / Lens implant [facility] 12/05/2023 15:26:37 04/25/19 13 operative procedure on cartilage completed [facility] 09/23/2021 14:51:05 04/25/19 13 Shoulder joint surgery completed Jane Shukriaxel [facility] 09/23/2021 14:51:34 04/25/19 13 Shoulder repair [facility] 12/05/2023 15:26:37 04/25/19 02 LASIK completed Jane Shukriaxel [facility] 12/05/2023 15:26:37 Tonsillectomy completed [facility] 09/23/2021 14:52:05 repair of mitral valve completed Han Mills RN [address] [place] [address],[address], [place], [address], [facility] 11/24/2021 13:31:59 Imaging Results Imaging Date Name Status LastModified by Organization Details LastModified Time 11/26/2022 electrocardiogram completed [facility]F In-Hous e Results For Internal Use Only, Do Not Delete/merge, [id number] 11/26/2022 16:14:20 11/26/2022 electrocardiogram completed [email or web address] Infor mation not available 11/29/2022 06:56:31 11/26/2022 device check (PROC) completed [email or web address]-440 Infor mation not available 12/05/2022 23:01:26 12/16/2022 trans-thoracic echocardiogram (TTE) (PROC) completed [email or web address] [address] [place] [address], [address], 06/02/2023 13:58:09 06/06/2023 electrocardiogram completed YOUSUF In-Hous e Results For Internal Use Only, Do Not Delete/merge, [id number] 06/06/2023 16:39:33 06/06/2023 electrocardiogram completed Informa tion not available 06/06/2023 16:43:35 06/08/2023 device check (PROC) completed [email or web address]-440 Infor mation not available 06/19/2023 11:37:54 06/22/2023 PET, heart completed [email or web address] [facility] [address] [place] [address] [address], [place], [address], 06/23/2023 09:16:18 12/05/2023 electrocardiogram completed YOUSUF In-Hous e Results For Internal Use Only, Do Not Delete/merge, [id number] 12/05/2023 16:25:03 12/05/2023 electrocardiogram completed Informa tion not available 12/05/2023 16:25:04 11/29/2023 US, echocardiogram completed [email or web address] Inf ormation not available 12/06/2023 10:41:26 12/05/2023 [...] For Internal Use Only, Do Not Delete/merge, [id number] 06/01/2024 16:16:01 06/01/2024 electrocardiogram completed Informa tion not available 06/04/2024 08:55:40 04/13/2024 US, echocardiogram, transesophageal completed [facility] [address] [place] [address] [address], [place], [address], 06/06/2024 09:41:52 06/01/2024 device check (PROC) completed [email or web address]-440 Infor mation not available 06/11/2024 16:11:44 07/06/2024 device check (PROC) completed [email or web address]-440 Infor mation not available 07/07/2024 09:26:43 Procedure Notes None recorded. Medical Equipment None Reported. Allergies Allergen ID Allergen Name Allergen Category Reaction Reaction Severity Criticality Documentation Date Start Date Code Code System Note Provider Name and Address Organization Details Recorded Time 087191 metoprolo l Not available dizziness palpitati ons severe Not available Not available 09/23/2021 6918 RxNorm Jane guajardo, [facility] 2 14:56:20 525544 Substance with sulfonami de structure and antibacte rial mechanism of action (substanc e) medicatio n Not available Not available Not available 09/23/2021 30383 8003 SNOMED Unsur e Child moreland react ion ALEJANDRO Ma [facility] 2 14:57:02 223105 gabapenti n medicatio n other moderate Not available 02/04/2022 46221 RxNorm Beni ce & gate Han Mills RN [address], [place], [address], [facility] 2 16:11:28 855650 Product containin g 3-hydroxy -3-methyl glutaryl- coenzyme A reductase inhibitor (product) medicatio n muscle cramps severe Not available 02/04/2022 28964 009 SNOMED Han Mills RN [address], [place], [address], [facility] 2 16:12:03 684929 amoxicill in medicatio n rash Not available Not available 11/26/2022 723 RxNorm David Rivas bennett, [facility] 3 15:16:47 [...] Updated DateTime 11/26/2022 187.96 cm 23.1 kg/m2 80942.63 g 112 mm[Hg] 64 mm[Hg] David Rivas [facility] 3 15:22:35 Date Recorded Body height Body mass index (BMI) Body weight Respiratory rate Heart rate Oxygen saturation Oxygen saturation in Arterial blood by Pulse oximetry Systolic blood pressure Diastolic blood pressure Provider Name and Address Organization Details Last Updated DateTime 4 187.96 cm 23.1 kg/m2 08280.6 3 g 16 /min 62 /min 99 % 99 % 110 mm[Hg] 62 mm[Hg] Lona Arellano [facility] 4 15:20:27 Date Recorded Body height Body mass index (BMI) Body weight Respiratory rate Body temperature Oxygen saturation Oxygen saturation in Arterial blood by Pulse oximetry Heart rate Systolic blood pressure Diastolic blood pressure Provider Name and Address Organization Details Last Updated DateTime 4 187.96 cm 24.4 kg/m2 69630.5 5 g 16 /min 99.1 [degF] 99 % 99 % 55 /min 126 mm[Hg] 70 mm[Hg] Jane Watt [facility] 4 15:37:28 Date Recorded Body height Body mass index (BMI) Body weight Respiratory rate Heart rate Oxygen saturation Oxygen saturation in Arterial blood by Pulse oximetry Systolic blood pressure Diastolic blood pressure Provider Name and Address Organization Details Last Updated DateTime 5 187.96 cm 25 kg/m2 83511.5 1 g 16 /min 74 /min 98 % 98 % 118 mm[Hg] 68 mm[Hg] Joi shalini [facility] 5 15:34:54 Social History Question Answer Notes LastModified by Organizat ion Details LastModified Time Tobacco Smoking Status Former Smoker quit greater than 40 years Annette Cuellar RN [address] [place] [address],[address], [place], [address], [facility] 09/28/2021 13:21:29 Do You Have An Advance Directive? Yes [email or web address] Information not available 06/06/2023 What Is Your Level Of Alcohol Consumption? Occasional Information not available 11/26/2022 How Many Times Per Week Do You Consume Alcohol? Less Than 1 Time Per Week Information not available 06/06/2023 Is Blood Transfusion Acceptable In An Emergency? Yes [email or web address] Information not available 06/06/2023 What Is Your Level Of Caffeine Consumption? Moderate 1-2 Cups Of Coffee Information not available 06/06/2023 What Type Of Diet Are You Following? [email or web address] Information not available 09/28/2021 When Did You Quit Smoking? 16+yearssincel [email or web address] Information not available 06/06/2023 Do You Have A Middle School French Teacher (loved One Involved In Your Care)? No Information not available 11/26/2022 Do You Feel Safe At Home? Yes Information not available 09/28/2021 Over The Last 3 Months, Have You Struggled With Housing? No [email or web address] Information not available 12/05/2023 Over The Last 3 Months, Have You Struggled With Access To Food? No [email or web address] Information not available 12/05/2023 Over The Last 3 Months, Have You Struggled With Utilities? No [email or web address] Information not available 12/05/2023 Over The Last 3 Months, Have You Struggled With Transportation? No [email or web address] Information not available 12/05/2023 Over The Last 3 Months, Have You [place] Unsafe In Your Relationship? No [email or web address] Information not available 12/05/2023 What Was The Date Of Your Most Recent Tobacco Screening? 06/01/2024 [email or web address] Information not available 06/01/2024 How Many Children Do You Have? 2 Information not available 09/28/2021 Do You Use Any Illicit Or Recreational Drugs? No [email or web address] Information not available 06/06/2023 Has Tobacco Cessation Counseling Been Provided? No [email or web address] Information not available 12/05/2023 How Many Years Have You Smoked Tobacco? 15 Information not available 06/06/2023 Do You Or Have You Ever Used Any Other Forms Of Tobacco Or Nicotine? No Information not available 06/06/2023 Sex: Male Functional Status Question Answer Note LastModified by Organizat ion Details LastModified Time What is your exercise level? Occasional [email or web address] Information not available 06/06/2023 Mental Status None recorded. Family History Relationship Description Onset Age of this Age Resolved Age Notes LastModified by Organization Details LastModified Time Mother Dementia 97 [email or web address] Not availa ble 09/23/2021 14:55:32 Father Family history of stroke 87 [email or web address] Not available 04/2021 14:55:47 Notes:11/26/22 Medical History [...] SNOMED-CT Code Diagnosis ICD10 Code Diagnosis Note [id number] Devorah Pan APRN Cardiac EP [address] [place], [place] [address] 09/28/2021 12:47:43 09/28/2021 14:08:29 Cardiac arrhythmia 978227298 I49.9 Paroxysmal atrial fibrillation 330309402 I48.0 Cardiomyopathy 38897211 I42.9 [id number] Jordon Orozco MD Cardiac EP [place] [address] [facility],[address] [place], [place] [address] 02/04/2022 15:47:13 02/04/2022 17:17:51 Palpitations 39023793 R00.2 [id number] ARCHANA CARIAS Cardiac EP [place] [address] [facility],[address] [place], [place] [address] 05/27/2022 13:34:44 05/27/2022 14:36:21 Cardiac arrhythmia 572614624 I49.9 Palpitations 75728654 R0 0.2 History of radiofrequency ablation operation for arrhythmia 770572574 Z98.890 Paroxysmal atrial fibrillation 309508925 I48.0 Ventricula r premature beats 29812733 I49.3 History of maze procedure for atrial fibrillation 821622744 Z98.890 History of repair of mitral valve 288989441 Z98.890 Left atria l appendage absent 636321358 Q20.8 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 78886499 I44.4 Cardiomyopathy 59092905 I42.9 [id number] Angelita Luke, PA Cardiac EP [facility] [place] [address] [place] [phone] 11/26/2022 14:57:35 11/26/2022 16:03:00 Cardiac arrhythmia 780229529 I49.9 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 32199084 I44.4 Persistent atrial fibrillation 692151962 I48.19 Cardiac pa cemaker in situ 346986364 Z95.0 [id number] Angelita Luke PA Cardiac EP [facility] [place] [address] [place] [phone] 06/06/2023 14:43:25 06/06/2023 16:06:44 Cardiac arrhythmia 405037302 I49.9 Atrial flutter 2953060 I 48.92 Cardiac pa cemaker in situ 977125308 Z95.0 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 66207992 I44.4 Nonsustain ed monomorphic ventricular tachycardia 8788618778 I47.29 [id number] Angelita Luke PA Cardiac EP [facility] [place] [address] [place] [phone] 12/05/2023 15:13:26 12/05/2023 16:18:04 Cardiac arrhythmia 147123624 I49.9 Atrial flutter 2621312 I 48.92 Cardiac pa cemaker in situ 087811629 Z95.0 Nonsustain ed ventricular tachycardia 300069878 I47.20 [id number] Angelita Luke PA Cardiac EP [facility] [place] [address] [place] [phone] 06/01/2024 15:17:26 06/04/2024 11:25:01 Cardiac arrhythmia 664810985 I49.9 Cardiac pa cemaker in situ 050866768 Z95.0 Atrial flutter 3578016 I 48.92 Left atria l appendage absent 755921396 Q20.8 [id number] Annette Cuellar RN Cardiac EP [facility] [place] [address] [facility] [address] [place] [address] 07/06/2024 13:31:20 07/06/2024 14:46:18 Health Concerns Section Related Observation LastModified by Organization Detai ls LastModified Time None Recorded Concern Status LastModified by Organization Details LastModified Time None Recorded Advance Directives Directive Y: Payers Encounter Date Sequence Insurance Name Policy Number Policy Shelby Covered Member ID Shelby Member ID Guarantor Name 11/26/2022 1 MEDICARE B-[place]: NGS Eliazar Quispe [id number] Eliazar Quispe 11/26/2022 2 [place] [id number] Eliazar Quispe [id number] Eliazar Quispe 06/06/2023 1 MEDICARE B-CT: NGS Eliazar Quispe [id number] 24 Eliazar Berriosinger 06/06/2023 2 [place] [id number] Eliazar Quispe [id number] Eliazar Quispe 12/05/2023 1 MEDICARE B-CT: NGS Eliazar Quispe [id number] 24 Eliazar Berriosinger 12/05/2023 2 [place] [id number] Eliazar Quispe [id number] 248 Eliazar Quispe 06/01/2024 1 MEDICARE B-CT: NGS Eliazar Quispe [id number] 24 Eliazar Berriosinger 06/01/2024 2 [place] [id number] Eliazar Quispe [id number] 248 Eliazar Berriosinger 07/06/2024 1 MEDICARE B-CT: NGS Eliazar Quispe [id number] 24 Eliazar Quispe 07/06/2024 2 [place] [id number] Eliazar Quispe [id number] 248 Eliazar Quispe Notes Date Note Type [...] excellent health. 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 He was referred to Dr. White at [facility]. As far as I can tell, [...] that time.More recently, he was admitted to [facility] on 01/18/20 with increasing [...] that admission, he had an echocardiogram at [facility] done on 01/16/20. This [...] been on benadryl with skin discomfort and [employer]m did not work; he has some relief with Ambien.He is single, he has a daughter Ellie Quispe who works in orthopedics for [employer]. He has a son Han who lives in [place].I would note that one of the possibilities [...] distribution.His preadmission lab studies were drawn at [facility]. His vitamin B12 [...] also showed 2500 PACs. We reviewed his [employer] ari which showed episodes of possible A. [...] any cardiac complaints. He was using his [employer] ari routinely which was showing sinus rhythm. A Holter monitor done prior to our visit showed a significant decline in his PVC burden and PAC burden. We did not make any changes to his medication. I asked that he follow-up with his tie bucker regarding the mitral regurgitation noted on his echocardiogram.He did have a hernia repair shortly after that visit.However in December 2020 he was found to have atrial flutter on his [employer] ari which was also confirmed on an EKG.He was brought to the EP lab on March 16, [address] Deras and underwent a successful ablation of mitral valve flutter with both epicardial and endocardial ablation. He was seen at [facility] in April 2021. He denied any recurrence of arrhythmias or palpitations. He was using his cardia monitor daily which did not show any atrial fibrillation or rapid heartbeats. He reported occasional chest discomfort and we asked him to follow-up with his tie bucker. We also felt he should have another [...] therefore had a pacemaker placed by Dr. Csatillo Aguillon. This is a Medtronic dual-chamber unit [...] remote monitoring is being followed by his tie bucker. ARCHANA Cooper [address] [facility],[address], [place], [address], [facility], [facility] 11/26/2022 16:26:06 06/06/2023 text/html To [...] excellent health. 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 He was referred to Dr. White at [facility]. As far as I can tell, [...] that time.More recently, he was admitted to [facility] on 01/18/20 with increasing [...] that admission, he had an echocardiogram at [facility] done on 01/16/20. 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 He has a son Han who lives in [place].I would note that one of the possibilities [...] distribution.His preadmission lab studies were drawn at [facility]. His vitamin B12 [...] also showed 2500 PACs. We reviewed his [employer] ari which showed episodes of possible A. [...] any cardiac complaints. He was using his [employer] ari routinely which was showing sinus rhythm. A Holter monitor done prior to our visit showed a significant decline in his PVC burden and PAC burden. We did not make any changes to his medication. I asked that he follow-up with his tie bucker regarding the mitral regurgitation noted on his echocardiogram.He did have a hernia repair shortly after that visit.However in December 2020 he was found to have atrial flutter on his [employer] ari which was also confirmed on an EKG.He was brought to the EP lab on March 16, [address] Deras and underwent a successful ablation of mitral valve flutter with both epicardial and endocardial ablation. He was seen at [facility] in April 2021. He denied any recurrence of arrhythmias or palpitations. He was using his cardia monitor daily which did not show any atrial fibrillation or rapid heartbeats. He reported occasional chest discomfort and we asked him to follow-up with his tie bucker. We also felt he should have another [...] a Medtronic dual-chamber unit which is an [place] XT DR device. The device is programmed [...] and he had a follow-up with his tie bucker. PVC counters showed 75/h. He had an [...] to his discomfort. He is seeing his tie bucker tomorrow. He has a home monitor which is being followed by his tie bucker. ARCHANA Cooper [address] [facility],[address], [place], [address], [facility], [facility] 06/08/2023 10:07:34 12/05/2023 text/html To [...] excellent health. 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 He was referred to Dr. White at [facility]. As far as I can tell, [...] that time.More recently, he was admitted to [facility] on 01/18/20 with increasing [...] that admission, he had an echocardiogram at [facility] done on 01/16/20. 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 He has a son Han who lives in [place].I would note that one of the possibilities [...] distribution.His preadmission lab studies were drawn at [facility]. His vitamin B12 [...] also showed 2500 PACs. We reviewed his [employer] ari which showed episodes of possible A. [...] any cardiac complaints. He was using his [employer] ari routinely which was showing sinus rhythm. A Holter monitor done prior to our visit showed a significant decline in his PVC burden and PAC burden. We did not make any changes to his medication. I asked that he follow-up with his tie bucker regarding the mitral regurgitation noted on his echocardiogram.He did have a hernia repair shortly after that visit.However in December 2020 he was found to have atrial flutter on his [employer] ari which was also confirmed on an EKG.He was brought to the EP lab on March 16, [address] Deras and underwent a successful ablation of mitral valve flutter with both epicardial and endocardial ablation. He was seen at [facility] in April 2021. He denied any recurrence of arrhythmias or palpitations. He was using his cardia monitor daily which did not show any atrial fibrillation or rapid heartbeats. He reported occasional chest discomfort and we asked him to follow-up with his tie bucker. We also felt he should have another [...] and he had a follow-up with his tie bucker. PVC counters showed 75/h. He had an [...] palpitations, near-syncope or syncope. ARCHANA Cooper.,[address], [place], [address], [facility], [facility] 12/05/2023 16:24:46 06/01/2024 text/html To review, [...] excellent health. 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 He was referred to Dr. White at [facility]. As far as I can tell, [...] that time.More recently, he was admitted to [facility] on 01/18/20 with increasing [...] that admission, he had an echocardiogram at [facility] done on 01/16/20. 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 He has a son Han who lives in [place].I would note that one of the possibilities [...] distribution.His preadmission lab studies were drawn at [facility]. His vitamin B12 [...] also showed 2500 PACs. We reviewed his [employer] ari which showed episodes of possible A. [...] any cardiac complaints. He was using his [employer] ari routinely which was showing sinus rhythm. A Holter monitor done prior to our visit showed a significant decline in his PVC burden and PAC burden. We did not make any changes to his medication. I asked that he follow-up with his tie bucker regarding the mitral regurgitation noted on his echocardiogram.He did have a hernia repair shortly after that visit.However in December 2020 he was found to have atrial flutter on his [employer] ari which was also confirmed on an EKG.He was brought to the EP lab on March 16, [address] Deras and underwent a successful ablation of mitral valve flutter with both epicardial and endocardial ablation. He was seen at [facility] in April 2021. He denied any recurrence of arrhythmias or palpitations. He was using his cardia monitor daily which did not show any atrial fibrillation or rapid heartbeats. He reported occasional chest discomfort and we asked him to follow-up with his tie bucker. We also felt he should have another [...] and he had a follow-up with his tie bucker. PVC counters showed 75/h. He had an [...] disease. He had close follow-up with his restaurant service manager. We noted frequent PVCs on his [...] We also left a message with his tie bucker to consider a CESILIA to see if the left atrial appendage is completely walled off as he had a resection at the time of his MVR/MAZE. Since that time, he reports having a CESILIA through his tie bucker which apparently showed a leak at the left atrial appendage clipping site. The patient contacted our office for our recommendations. Given his elevated [id number] score of 5, I recommended that he restart Eliquis. He declined going back on the medication and understood there is a risk of stroke. We also recommended he see a structural tie bucker to see if he is a candidate for a Watchman procedure depending on the size of the left atrial appendage leak. I offered to send him to a physician in [place] but since he lives in [place], he wanted to find someone in his area. He comes in today for follow-up. He is feeling well and denies palpitations, chest pain or shortness of breath. He is seeing his tie bucker next month and will be seeing someone regarding the left atrial appendage leak as well. ARCHANA Cooper [address] Lucas,[address], [place], [address], [facility], [facility] 06/01/2024 16:17:21
--- OUTSIDE RECORDS SUMMARY | 2024-07-25 13:44 | XMS_ITS | Encounter Summary ---
Author Organization [facility] Address [address] [place] [address] Care Team Providers Care Wound Care Rn Name Role Phone Gerda Feldman MD Primary Care Provider [phone] Jaylen Amin MD Unavailable Osmel Huerta MD Unavailable [phone] Wil Deras MD Unavailable Reason for Visit * Reason Comments New Patient Encounter Details Date Type Department Care Team (Late st Contact Info) Description 07/24/2024 2:30 PM EDT [place] [facility] [address] Davi Hull MD [address] [place] [address] Pain in right ankle and joints of right foot (Primary Dx) Social History Tobacco Use Types Packs/Day Years [...] 2 views-Right (07/24/2024 2:41 PM EDT) Narrative [facility] - 07/24/2024 2:41 PM EDT This exam was performed in office at [facility] and images reviewed by orthopedic provider. ??Any findings are documented within ambulatory encounter note on date of service. Davi WU DIAGNOSTIC IMAGI NG ORDERABLES Performing Organization Address [facility] de Phone Number [facility] * XR Ankle 3+ views-Right (07/24/2024 2:41 PM EDT) Narrative [facility] - 07/24/2024 2:41 PM EDT [facility] and images reviewed by orthopedic provider. ??Any findings are documented within ambulatory encounter note on date of service. Davi WU DIAGNOSTIC IMAGI NG ORDERABLES Performing Organization Address [facility] de Phone Number [facility] documented in this encounter Visit Diagnoses Diagnosis Pain in right ankle and joints of right foot- Primary documented in this encounter Care Teams Wound Care Rn Relationship Specialty Start Date End Date Gaston, Gerda Medley MD [address] [place] [address] [place] [address] PCP - General Internal Medicine 02/05/20 Jaylen Amin MD [address] [place] [address] [place] [address] Needle Straightener Cardiovascular Disease 02/05/20 Osmel Huerta MD [address] [place] [address] Drive [address] [place] [address] Surgery, General 09/04/20 Wil Deras MD [address] [place] [address] Cardiovascular Disease 04/30/21 documented as of this encounter
--- OUTSIDE RECORDS SUMMARY | 2024-07-25 13:44 | XMS_ITS | Encounter Summary ---
Author Organization [facility] Address [address] [place] [address] Care Team Providers Care Parquetry Layer Name Role Phone Gerda Feldman MD Primary Care Provider Jaylen Amin MD Unavailable Robert Crockett MD Unavailable [phone] Osmel Huerta MD Unavailable [phone] Wil Deras MD Unavailable Encounter Details Date Type Department Care Team (Late st Contact Info) Description 02/21/2020 Scanned Document [address] [place] [address] Provider, Janett, [address] [place] [address] Social History Tobacco Use Types Packs/Day Years [...] documented as of this encounter Care Teams Parquetry Layer Relationship Specialty Start Date End Date Gerda Feldman MD [address] [place] [address] [place] [address] PCP - General Internal Medicine 02/05/20 Jaylen Amin MD [address] [address] Air Analysis Engineering Technician Cardiovascular Disease 02/05/20 Robert Crockett MD [address] [address] Physician Cardiac Electrophysiology 03/01/2004/29 Osmel Huerta MD [address] [place] [address] Drive [address] [place] [address] Surgery, General 09/04/20 Wil Deras MD [address] [place] [address] Cardiovascular Disease 04/30/21 documented as of this encounter
--- OUTSIDE RECORDS SUMMARY | 2024-07-25 13:44 | XMS_ITS | Encounter Summary ---
Author Organization [facility] Address [address] [place] [address] Care Team Providers Care Media Services Coordinator Name Role Phone Gerda Feldman MD Primary Care Provider Jaylen Amin MD Unavailable Robert Crockett MD Unavailable [phone] Osmel Huerta MD Unavailable [phone] Wil Deras MD Unavailable Encounter Details Date Type Department Care Team (Late st Contact Info) Description 02/15/2020 Abstract [facility]- [address] [place] [phone] [address] Social History Tobacco Use Types Packs/Day Years [...] documented as of this encounter Care Teams Media Services Coordinator Relationship Specialty Start Date End Date Gerda Feldman MD [address] [place] [address] [place] [address] PCP - General Internal Medicine 02/05/20 Jaylen Amin MD [address] [address] Humanities Professor Cardiovascular Disease 02/05/20 Robert Crockett MD [address] [address] Physician Cardiac Electrophysiology 03/01/2004/29 Osmel Huerta MD [address] [place] [address] [address] [place] [address] Surgery, General 09/04/20 Wil Deras MD [address] [place] [address] Cardiovascular Disease 04/30/21 documented as of this encounter
--- OUTSIDE RECORDS SUMMARY | 2024-07-25 13:44 | XMS_ITS | Encounter Summary ---
Author Organization [facility] Address [address] [place] [address] Care Team Providers Care Spice Mixer Name Role Phone Gerda Feldman MD Primary Care Provider Jaylen Amin MD Unavailable Robert Crockett MD Unavailable [phone] Osmel Huerta MD Unavailable [phone] Wil Deras MD Unavailable Encounter Details Date Type Department Care Team (Late st Contact Info) Description 02/15/2020 Scanned Document [address] [place] [address] Provider, Janett, [address] [place] [address] Social History Tobacco Use Types Packs/Day Years [...] documented as of this encounter Care Teams Spice Mixer Relationship Specialty Start Date End Date Gerda Feldman MD [address] [place] [address] [place] [address] PCP - General Internal Medicine 02/05/20 Jaylen Amin MD [address] [address] Software Developer Cardiovascular Disease 02/05/20 Robert Crockett MD [address] [place] [address] [address] Physician Cardiac Electrophysiology 03/01/2004/29 Osmel Huerta MD [address] [place] [address] Drive [address] [place] [address] Surgery, General 09/04/20 Wil Deras MD [address] [place] [address] Cardiovascular Disease 04/30/21 documented as of this encounter
--- OUTSIDE RECORDS SUMMARY | 2024-07-25 13:44 | XMS_ITS | Encounter Summary ---
Author Organization [facility] Address [address] [place] [address] Care Team Providers Care Bond Manager Name Role Phone Gerda Feldman MD Primary Care Provider Jaylen Amin MD Unavailable [phone] Robert Crockett MD Unavailable [phone] Osmel Huerta MD Unavailable [phone] Wil Deras MD Unavailable Encounter Details Date Type Department Care Team (Late st Contact Info) Description 02/15/[address] [address] Robert Crockett MD [address] [place] [address] [address] [place] [address] Social History Tobacco Use Types [...] documented as of this encounter Care Teams Bond Manager Relationship Specialty Start Date End Date Gerda Feldman MD [address] [place] [address] [place] [address] PCP - General Internal Medicine 02/05/20 Jaylen Amin MD [address] [address] Bounty Trapper Cardiovascular Disease 02/05/20 Robert Crockett MD [address] [address] Physician Cardiac Electrophysiology 03/01/2004/29 Osmel Huerta MD [address] [place] [address] [address] [place] [address] Surgery, General 09/04/20 Wil Deras MD [address] [place] [address] Cardiovascular Disease 04/30/21 documented as of this encounter
--- OUTSIDE RECORDS SUMMARY | 2024-07-25 13:44 | XMS_ITS | Encounter Summary ---
Author Organization [facility] Address [address] [place] [address] Care Team Providers Care Linen Worker Name Role Phone Gerda Feldman MD Primary Care Provider Jaylen Amin MD Unavailable Robert Crockett MD Unavailable [phone] Osmel Huerta MD Unavailable [phone] Wil Deras MD Unavailable Encounter Details Date Type Department Care Team (Late st Contact Info) Description 02/15/2020 Scanned Document [address] [place] [address] Provider, Janett, [address] [place] [address] Social History Tobacco Use Types Packs/Day Years [...] documented as of this encounter Care Teams Linen Worker Relationship Specialty Start Date End Date Gerda Feldman MD [address] [place] [address] [place] [address] PCP - General Internal Medicine 02/05/20 Jaylen Amin MD [address] [address] Mortgage Loan Originator Cardiovascular Disease 02/05/20 Robert Crockett MD [address] [address] Physician Cardiac Electrophysiology 03/01/2004/29 Osmel Huerta MD [address] [place] [address] Drive [address] [place] [address] Surgery, General 09/04/20 Wil Deras MD [address] [place] [address] Cardiovascular Disease 04/30/21 documented as of this encounter
--- OUTSIDE RECORDS SUMMARY | 2024-07-25 13:45 | XMS_ITS | Clinical Summary ---
Author Organization [facility] Address [address] [place] [address] Phone Care Team Providers Care Water Resource Engineer Name Role Phone Gerda Feldman MD Primary Care Provider [phone] Allergies Active Allergy Reactions Criticality Noted Date [...] (11/05/2021): Added automatically from request for surgery [id number] Non-traumatic tendon rupture 01/24/2020 11/05/2021 Overview (11/05/2021): [...] Due Date Last Done Comments Influenza Vaccine (Season Ended) 2024 01/28/2021, 01/07/2020, 02/10/2019, Additional history exists Pneumococcal Vaccine: 65+ Years Completed 04/16/2019, 03/22/2018 Hepatitis B Vaccine Aged Out No longe r eligible based on patient's age to complete this topic Insurance MEDICARE [facility] MEDICARE [facility] Care Teams Water Resource Engineer Relationship Specialty Start Date End Date Gerda Feldman MD [facility] [place] [address] [place], [place] PCP - General Internal Medicine 10/21/21
--- OUTSIDE RECORDS SUMMARY | 2024-07-25 13:45 | XMS_ITS | Encounter Summary ---
Author Organization [facility] Address [address] [place] [address] Care Team Providers Care Furnace [place] Name Role Phone Gerda Feldman MD Primary Care Provider Jaylen Amin MD Unavailable [phone] Robert Crockett MD Unavailable [phone] Osmel Huerta MD Unavailable [phone] Wil Deras MD Unavailable Reason for Visit * Reason Comments Advice Only Encounter Details Date Type Department Care Team ([facility] Contact Info) Description 05/16/[address] [address] Robert Crockett MD [address] [place] [address] [address] [place] [address] Advice Only Social History Tobacco [...] was very grateful. He stated he called [facility] and they havehim on a cancellation [...] need to be cleared by his general production control scheduler. Patient stated his production control scheduler will not clear him until he sees [...] Patient states he booked his holter at [facility] in [place] since he lives close but it is not scheduled until 06/05. Patient would like to know if he needs to reschedule the 06/06appointment. Please advise. documented in this encounter Plan of Treatment Not on file documented as of this encounter Visit Diagnoses Not on filedocumented in this encounter Care Teams Furnace [place] Relationship Specialty Start Date End Date Po, Gerda Medley MD [address] [place] [address] [place] [address] PCP - General Internal Medicine 02/05/20 Jaylen Amin MD [address] [address] Switchman Cardiovascular Disease 02/05/20 Robert Crockett MD [address] [address] Physician Cardiac Electrophysiology 03/01/2004/29 Osmel Huerta MD [address] [place] [address] Drive [address] [place] [address] Surgery, General 09/04/20 Wil Deras MD [address] [place] [address] Cardiovascular Disease 04/30/21 documented as of this encounter
--- OUTSIDE RECORDS SUMMARY | 2024-07-25 13:45 | XMS_ITS | Clinical Summary ---
Author Organization [facility] [place] [address] Phone Care Team Providers Care Escort Car Driver Name Role Phone Physician, No Pcp Primary [...] Influencers of Health Screening 10/12/2021 RSV Immunization Adult Patie nts (1 - 1-dose 75+ series) 2023 COVID-19 Vaccine ( - 2023-2 5 season) 2023 Influenza Vaccine (Season Ended) 2024 HIB Vaccines Aged Out No longer eligi [...] age to complete this topic Insurance MEDICARE [facility] Care Teams Escort Car Driver Relationship Specialty Start Date End Date Physician, No Pcp PCP - General 10/12/21
--- OUTSIDE RECORDS SUMMARY | 2024-07-25 13:45 | XMS_ITS | Clinical Summary ---
Author Organization [facility]ly [facility] Address [address] [place] [address] Care Team Providers Care Polishing Machine Operator Helper Name Role Phone Gerda Feldman MD Primary Care Provider Jaylen Amin MD Unavailable Osmel Huerta MD Unavailable [phone] Wil Deras MD Unavailable Allergies Active [...] Take 400 mcg by mouth daily. Active Sweeden-3 Fatty Acids (FISH OIL PO) Take by mouth daily. Active Active Problems Problem Noted Date Diagnosed Date Atrial flutter 02/03/2021 Overview (02/03/2021): Added automatically from request for surgery [id number] Persistent atrial fibrillation 05/07/2020 Tendon rupture, nontraumatic 01/24/2020 Overview (03/01/2020): Alejandra young History of cardioversion 01/15/2020 Stroke 04/25/2018 Dyspnea Ankle edema Insomnia Nerve damage Overview (03/01/2020): Right arm Arthritis Overview (03/01/2020): right foot Encounters Date Type Department Care Team Description 07/24/2024 2:35 PM EDT Ancillary Procedure [facility] [address] [id number] Arrived 07/24/2024 2:30 PM EDT Consult [facility] [address] [id number] Davi Hull MD Pain in right ankle and joints of right foot (Primary Dx) from Last 3 Months Family History Medical History Relation Name Comments [...] on patient's age to complete this topic Procedures Procedure Name Priority Date/Time Associated Diagnosis Comments XR FOOT 2 VIEWS-BILATERAL Routine 07/24/2024 2:41 PM EDT Pain in right ankle and joints of right foot XR ANKLE 3+ VIEWS-RIGHT Routine 07/24/2024 2:41 PM EDT Pain in right ankle and joints of right foot from Last 3 Months Results * XR Foot 2 views-Right (07/24/2024 2:41 PM EDT) Narrative [facility] - 07/24/2024 2:41 PM EDT This exam was performed in office at [facility] and images reviewed by orthopedic provider. ??Any findings are documented within ambulatory encounter note on date of service. Davi WU DIAGNOSTIC IMAGI NG ORDERABLES Performing Organization Address [facility] Co de Phone Number OAH * XR Ankle 3+ views-Right (07/24/2024 2:41 PM EDT) Narrative [facility] - 07/24/2024 2:41 PM EDT This exam was performed in office at [facility] and images reviewed by orthopedic provider. ??Any findings are documented within ambulatory encounter note on date of service. Davi WU DIAGNOSTIC IMAGI NG ORDERABLES Performing Organization Address [facility] Co de Phone Number [facility] from Last 3 Months Advance Directives * Full Code (Latest Code Status on File) Date Activated Date Inactivated Comments 03/16/2021 3:20 PM * Full Code Date Activated Date Inactivated Comments 05/07/2020 7:40 PM 03/16/2021 6:29 AM Care Teams Polishing Machine Operator Helper Relationship Specialty Start Date End Date Gerda Feldman MD [address] [place] [address] [place] [address] PCP - General Internal Medicine 02/05/20 Jaylen Amin MD [address] [place] [address] Senior Systems Developer Cardiovascular Disease 02/05/20 Osmel Huerta MD [address] [place] [address] Drive [address] [place] [address] Surgery, General 09/04/20 Wil Deras MD [address] [place] [address] Cardiovascular Disease 04/30/21
--- OUTSIDE RECORDS SUMMARY | 2024-07-25 13:45 | XMS_ITS | Encounter Summary ---
Author Organization [facility] Address [address] [place] [address] Care Team Providers Care Gatekeeper Name Role Phone Gerda Feldman MD Primary Care Provider Jaylen Amin MD Unavailable [phone] Osmel Huerta MD Unavailable [phone] Wil Deras MD Unavailable Encounter Details Date Type Department Care Team (Late st Contact Info) Description 07/21/2021 Scanned Document [address] [address] Provider, MD Janett [address] [place] [address] Social History Tobacco Use Types Packs/Day Years [...] on filedocumented in this encounter Care Teams Gatekeeper Relationship Specialty Start Date End Date Gerda Feldman MD [address] [place] [address] PCP - General Internal Medicine 02/05/20 Jaylen Amin MD [address] [place] [address] Interactive Designer Cardiovascular Disease 02/05/20 Osmel Huerta MD [address] [place] [address] [address] [place] [address] Surgery, General 09/04/20 Wil Deras MD [address] [place] [address] Cardiovascular Disease 04/30/21 documented as of this encounter
[2024-07-25 14:03] LABS: Appearance Urine Clear; Color Urine Yellow; Glucose Urine UA Negative (Negative); Leukocyte Esterase Urine Trace (Negative); Nitrite Urine Negative (Negative); PH 5.5 (5.0-9.0); UMIC TRIGGER UACC YES; Urine Blood Moderate (2+) (Negative); Urine Ketones Negative (Negative); Urine Protein Trace mg/dL (Neg-Trace)
[2024-07-25 14:09] LABS: Alanine Aminotransferase 27 U/L (0-40); Albumin Level 3.9 g/dL (3.5-5.0); Alkaline Phosphatase 102 U/L (39-117); Anion Gap 11 (12-20); Aspartate Amino Transferase 23 U/L (5-37); Bilirubin Total 0.5 mg/dL (0.0-1.0); Blood Urea Nitrogen 52 mg/dL (9-16); Calcium 9.6 mg/dL (8.4-10.2); Carbon Dioxide 23 mmol/L (22-29); Chloride 111 mmol/L (96-108); Cholesterol 178 mg/dL (<200); Estimated Glomerular Filt Rate 30; Glucose Random 90 mg/dL (60-115); HDL Cholesterol 87 mg/dL (>40); LDL Cholesterol Calculated 86 mg/dL (<100); Magnesium 2.2 mg/dL (1.6-2.6); Potassium 5.3 mmol/L (3.3-5.1); Sodium 140 mmol/L (135-145); Triglycerides 28 mg/dL (<150)
[2024-07-25 14:28] LABS: Bacteria Urine None Seen (None Seen); Free T4 (Free Thyroxine) 0.97 ng/dL (0.71-1.85); Hyaline Casts Urine 0-2 /LPF (0-2); RBC Urine >20 /HPF (0-2); Squamous Epithelial Cell Urine 0-2 /HPF (0-2); Thyroid Stimulating Hormone 2.05 uIU/mL (0.32-4.0); UACC Culture Trigger YES
[2024-07-25 14:32] LABS: Folate 12.6 ng/mL (> or = 4.0); Vitamin B12 378 pg/mL (200-900)
== END 2024-07-25 11:16 | disposition home or self-care (01) ==
LOC: HO.HMGCLDS 11:15
PROVIDERS: PCP Internal Medicine; Visit Provider Internal Medicine
DX: E78.00 Pure hypercholesterolemia, unspecified (principal); R30.0 Dysuria; Z13.1 Encounter for screening for diabetes mellitus
CPT/HCPCS: 36415; 80053; 80061; 81001; 81003; 82607; 82746; 83036; 83735; 84439; 84443; 85025; 87086

== ENCOUNTER 2024-08-15 08:32 | Outpatient (AMB) | payer MEDICARE, SELFPAY ==
--- NOTE | 2024-08-15 08:33 | AM.OFFWIN_ITS ---
Intake Vital Signs 08/15/24 08:34 Height 6 ft 2 in Weight 198 lb BMI 25.4 BP 138/80 Blood Pressure Location Rt brachial Position Sitting Pulse 66 Pulse Source Pulse Oximeter Pulse Oximetry (%) 99 Oxygen Delivery Method Room Air Intake Visit Reasons: EP-lt eye swollen, tenderness, dark spot Intake Note: Patient here for left eye swelling, bruising and tenderness which started yesterday. Patient Tobacco Use Status: Former Tobacco user Allergies gabapentin Allergy (Severe, Verified 08/15/24 08:35) Dizziness atorvastatin Allergy (Intermediate, Verified 08/15/24 08:35) Muscle cramps rosuvastatin Allergy (Intermediate, Verified 08/15/24 08:35) Muscle cramps Sulfa (Sulfonamide Antibiotics) [SULFA(SULFONAMIDE ANTIBIOTICS)] Allergy (Mild, Verified 08/15/24 08:35) RASH metoprolol Adverse Reaction (Severe, Verified 08/15/24 08:35) Chest Pain, sob, dizziness amoxicillin Adverse Reaction (Mild, Verified 08/15/24 08:35) Rash Do you need a note to return to daycare/school/sports/work: No HPI HPI Comments History of Present Illness Details History of Present Illness - The patient is a 74-year-old male pres enting with bruising and swelling of left eye - He reported noticing swelling and brui sing near his eye yesterday after swimming with goggles, he has used these goggles for a year and they did not feel tight. Then he used the sauna, like he normally does. Then went to his car and initially discovered when his glasses pressed against the affected area. - There was no known trauma or bug bite or other injury. - The ecchymosis has not been accompanie d by significant pain or worsening in severity since its initial observation. - Visual disturbance was noted alongside the physical changes, warranting [facility] detention officer consultation if symptoms do not resolve. - The patient has had no similar issues in the past, and no history of eye- related traumas was mentioned. - He is not on a blood thinner, he does take 81mg aspirin daily Physical Exam General: Cooperative, healthy appearing, comfortable, no acute distress and well developed Orientation: Patient oriented x3 Limitations: No limitations Head: normal appearing Ears: Hearing grossly normal bilaterally Nose: Normal External nose present Face and sinus: Normal facial exam Eyes: left eye periorbital ecchymosis and edema, EOM intact, PERRLA, eye is completely normal appearing, no injection or blood in chamber. Neck: Normal visual inspection and Yes full ROM Respiratory: Normal respiratory effort and able to speak in complete sentences. 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 Atherosclerotic cardiovascular disease Normally functioning cardiac pacemaker present Acute kidney injury Generalized anxiety disorder Osteoarthritis of knees, bilateral Obstructive sleep apnea (adult) (pediatric) DVT (deep venous thrombosis) Nasal polyp Asthma Nonrheumatic mitral valve regurgitation Cardiomyopathy Cerebral infarction due to embolism of unspecified cerebral artery PVC (premature ventricular contraction) Anxiety Allergic rhinitis Insomnia Congestive heart failure Gastroesophageal reflux disease Impaired glucose tolerance Congestive heart failure Lupus anticoagulant positive Paroxysmal atrial fibrillation Hypercholesterolemia Surgical History H/O hernia repair Ventral hernia Status post mitral valve repair History of cardiac radiofrequency ablation (~03/16/21) Status post arthroscopy of left knee History of cardioversion (~01/17/20) S/P medial meniscectomy of left knee History of arthroscopy of left knee Hx of repair of right rotator cuff History of tonsillectomy Family History Father HTN (hypertension) CVA (cerebral vascular accident) Mother Skin cancer Maternal Uncle Colon cancer Son No problems noted. Daughter No problems noted. Family/Other Breast cancer Paternal Uncle Colon cancer Social History Housing: House Are you a primary pet care technician to a significant other at home: No Do you presently have visiting nurse or other home services: No Alcohol intake: never Patient Tobacco Use Status: Former Tobacco user Tobacco use type: Cigarette Years Smoked: 12 +/- e-Cigarette/Vaping Use: Never Used Second Hand Smoke Exposure: Yes service: No Current occupational status: retired Cognitive needs: No Hearing needs: No Vision needs: No Review of Systems Const All systems reviewed & are unremarkable except as noted in HPI and below Physical Exam Vital Signs: Last Vital Signs Pulse 66 08/15/24 08:34 BP 138/80 08/15/24 08:34 Pulse Ox 99 08/15/24 08:34 Oxygen Delivery Method Room Air 08/15/24 08:34 BMI result Body Mass Index 25.4 Assessment & Plan Assessment & Plan (1) Periorbital ecchymosis of left eye: Code(s): S00.12XA - Contusion of left eyelid and periocular area, initial encounter Qualifiers: Encounter type: initial encounter Qualified Code(s): S00.12XA - Contusion of left eyelid and periocular area, initial encounter Plan: I discussed the management of the patient's spontaneous periorbital ecchymosis, emphasizing the use of ice for swelling reduction. No cause is identified. Given the sudden appearance and no visual changes, I recommended monitoring symptoms closely and seeking ophthalmologic evaluation should visual changes occur. The benefit of specialist care for ocular issues was highlighted over emergency visits unless systemic symptoms arise. The possible natural resolution with gravity was explained alongside potential evaluations if changes in ocular function or more severe symptoms develop. If he develops any other changes, headaches, nausea or vomiting or other neurological changes, he should seek emergent care at the ED. Patient was informed and verbally consented to the use of an ambient scribe for clinic note documentation during this visit. Coding Level of Care Code Est Pt Level 3 (39823) Diagnoses Periorbital ecchymosis of left eye, initial encounter S00.12XA Encounter type: initial encounter
[2024-08-15 08:34] VITALS: BP 138/80; PULSE 66; O2SAT 99; BMI 25.4
--- OUTSIDE RECORDS SUMMARY | 2024-08-15 08:54 | XMS_ITS | Encounter Summary ---
Author Organization [facility] Address [address] [place] [address] Care Team Providers Care Ware Server Name Role Phone Gerda Feldman MD Primary Care Provider Jaylen Amin MD Unavailable Robert Crockett MD Unavailable [phone] Osmel Huerta MD Unavailable Wil Deras MD Unavailable Encounter Details Date Type Department Care Team (Late st Contact Info) Description 09/05/2020 Scanned Document [address] [place] [address] Provider, Janett, [address] [place] [address] Social History Tobacco Use Types Packs/Day Years [...] at Not on file Legal Sex Male 6:14 PM EST Gender Identity Not on file Sexual Orientation [...] on filedocumented in this encounter Care Teams Ware Server Relationship Specialty Start Date End Date Gerda Feldman MD [address] [place] [place] [address] PCP - General Internal Medicine 02/05/20 Jaylen Amin MD [address] [address] Counselor Aide Cardiovascular Disease 02/05/20 Robert Crockett MD [address] [address] Physician Cardiac Electrophysiology 03/01/2004/29 Osmel Huerta MD [address] [place] [address] Surgery, General 09/04/20 Wil Deras MD [address] [place] [address] Cardiovascular Disease 04/30/21 documented as of this encounter
--- OUTSIDE RECORDS SUMMARY | 2024-08-15 08:54 | XMS_ITS | Encounter Summary ---
Author Organization [facility] Address [address] [place] [address] Care Team Providers Care Box Attacher Name Role Phone Gerda Feldman MD Primary Care Provider [phone] Jaylen Amin MD Unavailable [phone] Robert Crockett MD Unavailable [phone] Osmel Huerta MD Unavailable [phone] Wil Deras MD Unavailable Reason for Visit * Reason Comments Results Encounter Details Date Type Department Care Team ([facility] st Contact Info) Description 09/01/[address] [address] Robert Crockett MD [address] [place] [address] Results Social History Tobacco Use Types [...] encounter Miscellaneous Notes * Telephone Encounter - Pamela Cardona - 09/01/2020 10:31 AM EDT Patient had testing done last week. Patient states he had a stress test, Holter Monitor and an echodone. Patient requested a call back to discuss results if they are available. documented in this encounter Plan of Treatment Not on file documented as of this encounter Visit Diagnoses Not on filedocumented in this encounter Care Teams Box Attacher Relationship Specialty Start Date End Date Gaston, Gerda Medley MD [address] [place] [address] [place] [address] PCP - General Internal Medicine 02/05/20 Jaylen Amin MD [address] [address] Audograph Operator Cardiovascular Disease 02/05/20 Robert Crockett MD [address] [address] Physician Cardiac Electrophysiology 03/01/2004/29 Osmel Huerta MD [address] [place] [address] [address] [place] [address] Surgery, General 09/04/20 Wil Deras MD [address] [place] [address] Cardiovascular Disease 04/30/21 documented as of this encounter
--- OUTSIDE RECORDS SUMMARY | 2024-08-15 08:55 | XMS_ITS | Encounter Summary ---
Author Organization [facility] Address [address] [place] [address] Care Team Providers Care Retort Forker Name Role Phone Gerda Feldman MD Primary Care Provider Jaylen Amin MD Unavailable [phone] Robert Crockett MD Unavailable [phone] Osmel Huerta MD Unavailable [phone] Wil Deras MD Unavailable Reason for Visit * Reason Comments Appointment Encounter Details Date Type Department Care Team (Late st Contact Info) Description 01/08/2021 Telephone [facility] [place] - Electrophysiology [address] [place] [address] Wil Deras MD [address] [place], [place] [id number] Appointment Social History Tobacco Use Types Packs/Day [...] on filedocumented in this encounter Care Teams Retort Forker Relationship Specialty Start Date End Date Po, Gerda Medley MD [address] [place] [address] PCP - General Internal Medicine 02/05/20 Jaylen Amin MD [address] [address] Plant And Maintenance Technician Cardiovascular Disease 02/05/20 Robert Crockett MD [address] [address] Physician Cardiac Electrophysiology 03/01/2004/29 Osmel Huerta MD [address] [place] [address] [address] [place] [address] Surgery, General 09/04/20 Wil Deras MD [address] [place] [address] Cardiovascular Disease 04/30/21 documented as of this encounter
--- OUTSIDE RECORDS SUMMARY | 2024-08-15 08:55 | XMS_ITS | Encounter Summary ---
Author Organization [facility] Address [address] [place] [address] Care Team Providers Care Hospice Music Therapist Name Role Phone Gerda Feldman MD Primary Care Provider Jaylen Amin MD Unavailable Robert Crockett MD Unavailable [phone] Osmel Huerta MD Unavailable [phone] Wil Deras MD Unavailable Encounter Details Date Type Department Care Team (Late st Contact Info) Description 02/15/2020 Scanned Document [address] [place] [address] Provider, Janett, [address] [place] [address] Social History Tobacco Use Types Packs/Day Years [...] documented as of this encounter Care Teams Hospice Music Therapist Relationship Specialty Start Date End Date Gerda Feldman MD [address] [place] [address] [place] [address] PCP - General Internal Medicine 02/05/20 Jaylen Amin MD [address] [address] Pressed Or Blown Glass Worker Cardiovascular Disease 02/05/20 Robert Crockett MD [address] [address] Physician Cardiac Electrophysiology 03/01/2004/29 Osmel Huerta MD [address] [place] [address] [address] [place] [address] Surgery, General 09/04/20 Wil Deras MD [address] [place] [address] Cardiovascular Disease 04/30/21 documented as of this encounter
--- OUTSIDE RECORDS SUMMARY | 2024-08-15 08:55 | XMS_ITS | Encounter Summary ---
Author Organization [facility] Address [address] [place] [address] Care Team Providers Care Coremaker Supervisor Name Role Phone Gerda Feldman MD Primary Care Provider Jaylen Amin MD Unavailable [phone] Robert Crockett MD Unavailable [phone] Osmel Huerta MD Unavailable [phone] Wil Deras MD Unavailable Encounter Details Date Type Department Care Team (Late st Contact Info) Description 02/21/2020 Scanned Document [address] [place] [address] Provider, Janett, [address] [place] [address] Social History Tobacco Use Types Packs/Day Years [...] documented as of this encounter Care Teams Coremaker Supervisor Relationship Specialty Start Date End Date Gerda Feldman MD [address] [place] [address] [place] [address] PCP - General Internal Medicine 02/05/20 Jaylen Amin MD [address] [address] Lawn Mower Repairer Cardiovascular Disease 02/05/20 Robert Crockett MD [address] [address] Physician Cardiac Electrophysiology 03/01/2004/29 Osmel Huerta MD [address] [place] [address] [address] [place] [address] Surgery, General 09/04/20 Wil Deras MD [address] [place] [address] Cardiovascular Disease 04/30/21 documented as of this encounter
--- OUTSIDE RECORDS SUMMARY | 2024-08-15 08:55 | XMS_ITS | Data Portability ---
Author Organization [facility] - Misael Bardales s, [address] Address [address] [place] [address] Assessment No assessment recorded. Plan of Treatment Reminders Order Date Submit Date Provider Last Modified By Organization Details Last Modified Time Details Appointments None recorded. Lab None recorded. Referral otolaryngol ogist referral - feeling dizzy and vertigo especially waking upm in morning. need further evaluation and treatment. 2022 023 [email or web address] 26 Pratik Rivera MD, [address] [facility] Master, [facility] [[email or web address]] [address], [place], [address], 3 12:51:32 Procedures None recorded. Surgeries None recorded. Imaging None recorded. Medication Orders meclizine 25 mg tablet 2022 023 [id number], [address] [place], [place], [id number], 19:15:43 Patient TargetsNo targets recorded. Patient Instructions Encounter Date Encounter Id Patient Instructions Last Modified By Organization Details Last Modified Time 06/06/2022 [id number] dizziness: care instructions Not available 06/06/2022 19:14:50 [...] Not available 06/06/2022 19:14:49 Reason for Referral Newspaper Photographer Referral fo r Benign paroxysmal positional vertigo [...] Address Organization Details Recorded Time Essential hypertension 09371211 Active 2022 IRIS COUVERTIE R null, [place] - [facility] 3 18:23:37 Acute kidney injury 63044859 Active 2022 IRIS COUVERTIE R null, PA - [facility] 3 18:26:17 Insomnia 609389453 Active 2022 IRIS COUVERTIE R null, PA [...] Name and Address Organization Details Recorded Time 211810 Substance with sulfonami de structure and antibacte rial mechanism of action (substanc e) medicatio n Not available Not available Not available 06/06/2022 72924 8003 SNOMED IRIS COUVERTIE R null, PA - [facility] 3 18:21:58 971286 gabapenti n medicatio n dizziness Not available Not available 06/06/2022 58666 RxNorm IRIS COUVERTIE R null, [place] - [facility] 3 18:22:14 608827 rosuvasta tin medicatio n edema Not available Not available 06/06/2022 19258 2 RxNorm KRISHNA PEREZ [facility] [...] TABLETS BY MOUTH EVERY DAY DIRECTED BY [facility] 06/06 completed Not Available Not [...] Updated DateTime 3 187.96 cm 23.8 kg/m2 45163.5 9 g 100 % 100 % 66 [...] SNOMED-CT Code Diagnosis ICD10 Code Diagnosis Note [id number] [address] [facility] [place] [address] 08/09/2016 14:01:54 08/09/2016 14:52:09 [id number] [address] [facility] [place] [address] 10/08/2019 14:19:37 10/08/2019 15:46:07 [id number] [address] [facility] [place] [address] 06/14/2020 09:23:40 06/14/2020 09:53:11 [id number] [address] [facility] [place] [address] 12/31/2018 10:08:17 12/31/2018 10:53:03 [id number] [address] [facility] [place] [address] 06/08/2016 13:08:05 06/08/2016 14:31:43 [id number] [address] [facility] [place] [address] 01/02/2020 17:09:44 01/02/2020 17:43:56 [id number] [address] [facility] [place] [address] 12/18/2019 15:16:32 12/18/2019 16:26:12 [id number] [address] [facility] [place] [address] 02/19/2016 13:00:02 02/19/2016 13:30:00 [id number] [address] [facility] [place] [address] 02/13/2016 15:03:43 02/13/2016 15:28:04 [id number] [address] [place] [address] [place] [address] 12/08/2017 08:46:06 12/08/2017 09:50:44 [id number] [address] [place] [address] [place] [address] 03/16/2020 15:48:34 03/16/2020 18:27:17 [id number] [address] [place] [address] [place] [address] 04/30/2020 13:25:07 04/30/2020 18:52:16 [id number] [facility] JAIMES [address] [facility] [place] [address] 06/06/2022 15:33:14 07/27/2022 19:27:19 Left without being seen [id number] 9102 Z53.21 [id number] Leroy Crandall NP [address] [facility] [place] [address] 06/06/2022 17:13:56 06/06/2022 19:17:57 Benign paroxysmal positional vertigo 969812943 H81.10 Health Concerns Section Related Observation LastModified by Organization Detai ls LastModified Time None Recorded Concern Status LastModified by Organization Details LastModified Time None Recorded Advance Directives Directive None Recorded Payers Encounter Date Sequence Insurance Name Policy Number Policy Shelby Covered Member ID Shelby Member ID Guarantor Name 03/16/2020 1 [place] [employer] Eliazar Quispe [id number] Eliazar Quispe 03/16/2020 2 [place] [id number] Eliazar Quispe [id number] Eliazar Quispe 04/30/2020 1 [place] Eliazar Quispe [id number] Eliazar Quispe 04/30/2020 2 [place] [id number] Eliazar Quispe [id number] Eliazar Quispe 06/14/2020 1 [place] Eliazar Quispe [id number] Eliazar Quispe 06/14/2020 2 [place] [id number] Eliazar Quispe [id number] Eliazar Quispe 06/06/2022 1 [place] Eliazar Quispe [id number] Eliazar Quispe 06/06/2022 2 [place] [id number] Eliazar Quispe [id number] Eliazar Quispe 06/06/2022 1 [place] [employer] Eliazar Quispe [id number] Eliazar Quispe 06/06/2022 2 [place] [id number] Eliazar Quispe [id number] Eliazar Quispe Notes Date Note Type [...] Crandall NP [address] [place], [address], [place] - [facility] 06/06/2022 19:16:09
--- OUTSIDE RECORDS SUMMARY | 2024-08-15 08:55 | XMS_ITS | Data Portability ---
Author Organization [facility], [facility], Primary Care [facility] Walk Address [address] [place] [address] Care Team Providers Care Casket Coverer Name Role Phone JORDON OROZCO Clinical Cardiac Electrophysiolo gist FRANCA VELA Electromechanical Equipment Tester ИВАН YANES Primary Care Provider [phone] HAN JONES Cardiac Surgeon CRISTINA LEONARD Microbiological Analyst ANGELITA CHAMBERS Physician Design Drafter Chief [phone] JOSELINE FULTON Urologist Assessment Encounter Date Assessment [...] on September 26 and occurred in the child care nurse hours. The other 2 episodes were in [...] a stress test. He is seeing his residential carpenter on December 02. The patient will bring this up with his residential carpenter and I will send him a copy [...] I will discuss this with the patient's residential carpenter to see if they can arrange for this where Mr. Quispe lives in [place]. We will await PET scan and genetics. I will see him back in the office in 6 months. I left a message on the patient's cell phone after our visit to discuss the above. I also left a message with his residential carpenter asking him to call me to discuss [...] hour. His monitor is followed by his residential carpenter. He continues to have frequent PVCs as [...] will obtain his recent echo from his residential carpenter office. His main concern is fatigue, anemia and chronic kidney disease. He has follow-up with nephrology next week. I have asked him to call us if he develops any palpitations. He has close follow-up with his residential carpenter. I would like to see him back [...] he will be following up with his residential carpenter regarding alternative procedures, possibly a Watchman to [...] to see a new cardiology MD in [facility] in August, I did offer to [...] For Internal Use Only, Do Not Delete/merge, [id number] 06/01/2024 16:16:49 electroca rdiogram 2023 024 In-House Results, For Internal Use Only, Do Not Delete/merge, [id number] 12/05/2023 16:24:44 electroca rdiogram 2023 024 In-House Results, For Internal Use Only, Do Not Delete/merge, [id number] 06/06/2023 16:39:34 electroca rdiogram 2022 023 In-House Results, For Internal Use Only, Do Not Delete/merge, [id number] 11/26/2022 16:14:21 Medication Orders None recorded. Patient TargetsNo targets recorded. Patient Instructions Encounter Date Encounter Id Patient Instructions Last Modified By Organization Details Last Modified Time 11/26/2022 [id number] I spent a total of {{# of minutes 35#}} minutes on the same date of service providing pbzq-pw-xvgc and djf-adhg-oe-face patient care. Not available 11/26/2022 15:59:24 06/06/2023 [id number] I spent a total of {{# of minutes 35#}} minutes on the same date of service providing ajun-no-orvy and qkf-quwy-jj-face patient care. Not available 06/06/2023 16:54:15 12/05/2023 [id number] I spent a total of {{# of minutes 35#}} minutes on the same date of service providing esnh-mx-xyek and sxq-vuhf-ir-face patient care. Not available 12/05/2023 16:23:56 06/01/2024 [id number] I spent a total of {{# of minutes 35#}} minutes on the same date of service providing euuw-gg-vqke and dhc-zolh-lv-face patient care. Not available 06/01/2024 16:16:54 Reason for Referral None Reported. Results Created Date Observation Date Name Description Value Unit Range Abnormal Flag Note LastModifiedBy Organization Detail LastModifiedTime 11/27/1911/26/2022 elect tra waite am No observ ation record ed. [facility] In-House Results For Internal Use Only, Do Not Delete/merge, [id number] 11/26/2022 16:14:20 11/27/19 elect rocar diogr am No observ ation record ed. [email or web address] Not Available 10/2022 06:56:31 12/06/19 23 11/26/2022 devic e check (PROC ) No observ ation record ed. [email or web address] Not Available 2022 23:01:26 06/02/19 24 12/16/2022 trans -thor acic echoc ardio gram (TTE) (PROC ) No observ ation record ed. [facility] [address], [place], [address], 06/02/2023 13:58:09 06/06/19 24 06/06/2023 elect rocar diogr am No observ ation record ed. YOUSUF In-House Results For Internal Use Only, Do Not Delete/merge, [id number] 06/06/2023 16:39:33 06/06/19 elect rocar diogr am No observ ation record ed. Not Available 2023 16:43:35 06/19/19 24 06/08/2023 devic e check (PROC ) No observ ation record ed. [email or web address] Not Available 2023 11:37:54 06/22/19 24 06/22/2023 PET, heart No observ ation record ed. [email or web address] [facility], [place], [address], 06/23/2023 09:16:18 12/05/19 24 12/05/2023 elect rocar diogr am No observ ation record ed. YOUSUF In-House Results For Internal Use Only, Do Not Delete/merge, [id number] 12/05/2023 16:25:03 12/05/19 elect rocar diogr am No observ ation record ed. Not Available 2023 16:25:04 12/06/19 24 11/29/2023 , echoc ardio gram No observ ation record ed. [email or web address] Not Available 10:41:26 12/11/19 24 12/05/2023 devic [...] For Internal Use Only, Do Not Delete/merge, [id number] 06/01/2024 16:16:01 06/01/19 elect rocar diogr am No observ ation record ed. [email or web address] Not Available 06/04 08:55:40 06/06/19 25 04/13/2024 , echo ardio gram, trans esoph ageal No observ ation record ed. [facility], [place], [address], 06/06/2024 09:41:52 06/11/19 25 06/01/2024 devic e check (PROC ) No observ ation record ed. [email or web address] Not Available 2024 16:11:44 07/08/19 25 07/06/2024 devic e check (PROC ) No observ ation record ed. [email or web address] Not Available 2024 09:26:43 08/04/19 25 08/02/2024 remot e devic e inter rogat ion (PROC ) No observ ation record ed. [email or web address] Not Available 2024 11:28:39 Result Notes None recorded. Problems Name Problem SNOMED Code Status Onset Date Resolution Date Notes Provider Name and Address Organization Details Recorded Time Atrial flutter 2254822 Active [facility] 2 14:43:55 Persisten t atrial fibrillat ion 135347480 Active [facility]DR[facility] 2 14:44:26 Rupture of tendon 186718704 Active Nontrauma tic L ankle [facility] 2 14:45:26 History of cardiover vita 550733692888 08 Active Jane Rodartedridge null, [place] [facility] 2 14:45:57 Cerebrova scular accident 963153691 Active [place]yovani [place] null, [place] - [facility] 2 14:46:07 Dyspnea 437146773 Active Janeyovani [place] null, [place] [facility] 2 14:46:19 Insomnia 346638968 Active Jane [place] null, [place] - [facility] 2 14:46:34 Nerve injury 58842357 Active Right Arm Jane Rodartedridge null, [facility] 2 14:47:21 Arthritis 7441494 Active Right Foot Jane Rodart[place]ridge null, [place] - [facility] 2 14:47:56 Cardiac arrhythmi a 932893691 Active 2022 Arden Cosme null, [facility] 3 13:53:39 Palpitati ons 66347465 Active 2022 ARCHANA CARIAS [address] [place] [address], [place], [address], [facility] 3 14:57:10 Paroxysma l atrial fibrillat ion 458074007 Active 2022 ARCHANA CARIAS [address] [place] [address], [place], [address], [facility] 3 14:59:34 Ventricul ar premature beats 82796513 Active 2022 ARCHANA CARIAS [address] [place] [address], [place], [address], [facility] 3 14:59:56 Left atrial appendage absent 373056396 Active 2022 s/p clipping of GABRIEL at time of MV repair, 2021 ARCHANA Cooper [address] [place] [address], [place], [address], [place] - [facility] 4 09:17:42 Left bundle branch hemiblock 8250631 Active 2022 ARCHANA CARIAS [address] [place] [address], [place], [address], [place] - [facility] 3 15:03:55 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 XT MRI DEVICE SERIAL NUMBER [id number] DEVICE TYPE Pacemaker DATE OF IMPLANT 28-Nov-19 22 pt transferr ed into 's remote clinic from [place] 12/13/2023 Phoebe Mccracken RN [address] [place] [address], [place], [address], [place] - [facility] 4 12:20:39 Nonsustai marcelo ventricul ar tachycard ia 242946979 Active 2023 ARCHANA Cooper [address] [place] [address], [place], [address], [facility] 4 12:44:39 Problem Notes None recorded. Procedures Surgical History Date Name Laterality Status Provider Name and Address Organization Details Recorded Time 06/01/19 25 In-person Programming of Pacemaker: Dual Chamber CPT 39116,26 completed [address] Cooper [address] [place] [address], [place], [address], [facility] [place] - [facility] 06/01/2024 16:12:50 05/14/19 25 insertion of stent into urethra completed Joi loya [place] - [facility] 06/01/2024 15:31:08 12/05/19 24 In-person Programming of Pacemaker: Dual Chamber CPT 17232,[address] [address], [place], [address], [place] - [facility] 12/05/2023 16:20:31 06/06/19 24 In-person Programming of Pacemaker: Dual Chamber CPT 47231,26 completed ARCHANA Cooper [address] [place] [address], [place], [address], [place] - [facility] 06/07/2023 12:27:03 11/27/19 23 In-person Programming of Pacemaker: Dual Chamber CPT 38718,26 completed [address] Cooper [address] [place] [address], [place], [address], [place] - [facility] 11/26/2022 16:11:31 05/27/19 23 In-person Programming of Pacemaker: Dual Chamber CPT 58304,26 completed ARCHANA CARIAS [address] [place] [address], [place], [address], [place] - [facility] 05/27/2022 15:17:02 04/25/19 23 Hernia repair: Incisional completed Jane Watt [place] - [facility] 12/05/2023 15:26:37 02/05/20 22 In-person Programming of Pacemaker: Dual Chamber CPT 26805,26 completed Jordon Orozco MD [address] [place] [address], [address], [place] - [facility] 02/04/2022 17:05:28 11/28/19 22 cardiac pacemaker procedure completed Han Mills RN [address] [place] [address], [place], [address], [place] - [facility] 02/04/2022 16:16:27 11/13/19 22 Maze procedure completed Han Mills RN [address] [place] [address], [address], [place] - [facility] 11/24/2021 13:27:31 11/13/19 22 atrial appendage excision completed Han Mills RN [address] [place] [address], [place], [address], [place] - [facility] 11/24/2021 13:27:59 04/25/19 22 Other completed Janeyovani Wills [facility] 12/05/2023 15:26:37 04/25/19 22 Pacemaker completed Janeyovani ALLEN [facility] 12/05/2023 15:26:37 03/16/20 21 catheter ablation of arrhythmogenic focus completed Janeyovani ALLEN [facility] 09/23/2021 14:50:10 05/07/19 21 catheter ablation of arrhythmogenic focus completed Janeyovani ALLEN [facility] 09/23/2021 14:49:31 05/07/19 21 catheter ablation of arrhythmogenic focus completed Janeyovani ALLEN Johann [facility] 09/23/2021 14:49:45 04/25/19 21 Hernia repair: Inguinal completed Janeyovani Wills [facility] 12/05/2023 15:26:37 04/25/19 19 Cataract removal / Lens implant completed Janeyovani ALLEN Johann [facility] 12/05/2023 15:26:37 04/25/19 13 operative procedure on cartilage completed Janeyovani Wills [facility] 09/23/2021 14:51:05 04/25/19 13 Shoulder joint surgery completed Janeyovani Wills [facility] 09/23/2021 14:51:34 04/25/19 13 Shoulder repair completed Janeyovani Wills [facility] 12/05/2023 15:26:37 04/25/19 02 LASIK completed Janeyovani ALLEN Johann [facility] 12/05/2023 15:26:37 Tonsillectomy completed Janeyovani ALLEN Johann [facility] 09/23/2021 14:52:05 repair of mitral valve completed Han Mills RN [address], [place], [address], [place] - [facility] 11/24/2021 13:31:59 Imaging Results Imaging Date Name Status LastModified by Organization Details LastModified Time 11/26/2022 electrocardiogram completed [facility] In-Hous e Results For Internal Use Only, Do Not Delete/merge, [id number] 11/26/2022 16:14:20 11/26/2022 electrocardiogram completed [email or web address] Infor mation not available 11/29/2022 06:56:31 11/26/2022 device check (PROC) completed [email or web address] Infor mation not available 12/05/2022 23:01:26 12/16/2022 trans-thoracic echocardiogram (TTE) (PROC) completed [address] [facility] [address] [place] [address], [address], 06/02/2023 13:58:09 06/06/2023 electrocardiogram completed [facility] In-Hous e Results For Internal Use Only, Do Not Delete/merge, [id number] 06/06/2023 16:39:33 06/06/2023 [email or web address] In[facility] t[facility] not available 06/06/2023 16:43:35 06/08/2023 device check (PROC) completed [email or web address]-440 Infor mation not available 06/19/2023 11:37:54 06/22/2023 PET, heart completed [email or web address] [facility] [address] [place] [address] [address], [place], [address], 06/23/2023 09:16:18 12/05/2023 electrocardiogram completed YOU[facility]F In-Hous e Results For Internal Use Only, Do Not Delete/merge, [id number] 12/05/2023 16:25:03 12/05/2023 electrocardiogram completed Informa tion not available 12/05/2023 16:25:04 11/29/2023 US, echocardiogram completed [email or web address] Inf ormation not available 12/06/2023 10:41:26 12/05/2023 [...] For Internal Use Only, Do Not Delete/merge, [id number] 06/01/2024 16:16:01 06/01/2024 electrocardiogram completed [email or web address] Informa tion not available 06/04/2024 08:55:40 04/13/2024 US, echocardiogram, transesophageal completed [facility] [address] [place] [address] [address], [place], [address], 06/06/2024 09:41:52 06/01/2024 device check (PROC) completed [email or web address] Infor mation not available 06/11/2024 16:11:44 07/06/2024 device check (PROC) completed [email or web address] Infor mation not available 07/07/2024 09:26:43 08/02/2024 remote device interrogation (PROC) completed [email or web address] Information not available 08/03/2024 11:28:39 Procedure Notes None recorded. Medical Equipment None Reported. Allergies Allergen ID Allergen Name Allergen Category Reaction Reaction Severity Criticality Documentation Date Start Date Code Code System Note Provider Name and Address Organization Details Recorded Time 380530 metoprolo l Not available dizziness palpitati ons severe Not available Not available 09/23/2021 6918 RxNorm [facility]ANDRO [facility] 2 14:56:20 756055 Substance with sulfonami de structure and antibacte rial mechanism of action (substanc e) medicatio n Not available Not available Not available 09/23/2021 00980 8003 SNOMED Unsur e Child [place] react ion ALEJANDRO [facility] 2 14:57:02 938187 gabapenti n medicatio n other moderate Not available 02/04/2022 45043 RxNorm Beni ce & gate Han Mills RN [address], [place], [address], [facility] 2 16:11:28 412081 Product containin g 3-hydroxy -3-methyl glutaryl- coenzyme A reductase inhibitor (product) medicatio n muscle cramps severe Not available 02/04/2022 65891 009 MARCELLA Mills, RN [address] [facility], [place], [address], [facility] 2 16:12:03 100169 amoxicill in medicatio n rash Not available Not available 11/26/2022 723 RxNorm David Rivas [facility], [facility] 15:16:47 Medications Name Sig Start Date Stop [...] Updated DateTime 11/26/2022 187.96 cm 23.1 kg/m2 33501.63 g 112 mm[Hg] 64 mm[Hg] David W[facility] 15:22:35 Date Recorded Body height Body mass index (BMI) Body weight Respiratory rate Heart rate Oxygen saturation Oxygen saturation in Arterial blood by Pulse oximetry Systolic blood pressure Diastolic blood pressure Provider Name and Address Organization Details Last Updated DateTime 4 187.96 cm 23.1 kg/m2 27255.6 3 g 16 /min 62 /min 99 % 99 % 110 mm[Hg] 62 mm[Hg] Lona Arellano [facility] 4 15:20:27 Date Recorded Body height Body mass index (BMI) Body weight Respiratory rate Body temperature Oxygen saturation Oxygen saturation in Arterial blood by Pulse oximetry Heart rate Systolic blood pressure Diastolic blood pressure Provider Name and Address Organization Details Last Updated DateTime 4 187.96 cm 24.4 kg/m2 83448.5 5 g 16 /min 99.1 [degF] 99 % 99 % 55 /min 126 mm[Hg] 70 mm[Hg] Jane Watt [facility] 4 15:37:28 Date Recorded Body height Body mass index (BMI) Body weight Respiratory rate Heart rate Oxygen saturation Oxygen saturation in Arterial blood by Pulse oximetry Systolic blood pressure Diastolic blood pressure Provider Name and Address Organization Details Last Updated DateTime 5 187.96 cm 25 kg/m2 02368.5 1 g 16 /min 74 /min 98 % 98 % 118 mm[Hg] 68 mm[Hg] Joi loya [facility] 5 15:34:54 Social History Question Answer Notes LastModified by Organizat ion Details LastModified Time Tobacco Smoking Status Former Smoker quit greater than 40 years Annette Cuellar RN [address] [place] [address],[address], [place], [address], [facility] 09/28/2021 13:21:29 Do You Have An Advance Directive? Yes [email or web address] Information not available 06/06/2023 What Is Your Level Of Alcohol Consumption? Occasional Information not available 11/26/2022 How Many Times Per Week Do You Consume Alcohol? Less Than 1 Time Per Week Information not available 06/06/2023 Is Blood Transfusion Acceptable In An Emergency? Yes [email or web address] Information not available 06/06/2023 What Is Your Level Of Caffeine Consumption? Moderate 1-2 Cups Of Coffee Information not available 06/06/2023 What Type Of Diet Are You Following? CARDIAC Information not available 09/28/2021 When Did You Quit Smoking? 16+yearssincel lakisha Information not available 06/06/2023 Do You Have A Grinding And Spraying Supervisor (loved One Involved In Your Care)? No Information not available 11/26/2022 Do You Feel Safe At Home? Yes Information not available 09/28/2021 Over The Last 3 Months, Have You Struggled With Housing? No [email or web address] Information not available 12/05/2023 Over The Last 3 Months, Have You Struggled With Access To Food? No [email or web address] Information not available 12/05/2023 Over The Last 3 Months, Have You Struggled With Utilities? No [email or web address] Information not available 12/05/2023 Over The Last 3 Months, Have You Struggled With Transportation? No [email or web address] Information not available 12/05/2023 Over The Last 3 Months, Have You Pickens Unsafe In Your Relationship? No [email or web address] Information not available 12/05/2023 What Was The Date Of Your Most Recent Tobacco Screening? 06/01/2024 [email or web address] Information not available 06/01/2024 How Many Children Do You Have? 2 Information not available 09/28/2021 Do You Use Any Illicit Or Recreational Drugs? No [email or web address] Information not available 06/06/2023 Has Tobacco Cessation Counseling Been Provided? No [email or web address] Information not available 12/05/2023 How Many Years Have You Smoked Tobacco? 15 Information not available 06/06/2023 Do You Or Have You Ever Used Any Other Forms Of Tobacco Or Nicotine? No Information not available 06/06/2023 Sex: Male Functional Status Question Answer Note LastModified by Organizat ion Details LastModified Time What is your exercise level? Occasional [email or web address] Information not available 06/06/2023 Mental Status None recorded. Family History Relationship Description Onset Age of this Age Resolved Age Notes LastModified by Organization Details LastModified Time Mother Dementia 97 [email or web address] Not availa ble 09/23/2021 14:55:32 Father Family history of stroke 87 [email or web address] Not available 04/2021 14:55:47 Notes:11/26/22 JG Medical [...] SNOMED-CT Code Diagnosis ICD10 Code Diagnosis Note [id number] Devorah Pan APRN Cardiac EP [address] [place] [address] 09/28/2021 12:47:43 09/28/2021 14:08:29 Cardiac arrhythmia 473855999 I49.9 Paroxysmal atrial fibrillation 395555230 I48.0 Cardiomyopathy 84923777 I42.9 [id number] Jordon Orozco MD Cardiac EP [place] [address] [facility],[address] [place] [address] 02/04/2022 15:47:13 02/04/2022 17:17:51 Palpitations 21566875 R00.2 [id number] ARCHANA CARIAS Cardiac EP [place] [address] [facility],[address] [place] [address] 05/27/2022 13:34:44 05/27/2022 14:36:21 Cardiac arrhythmia 514939258 I49.9 Palpitations 27031064 R0 0.2 History of radiofrequency ablation operation for arrhythmia 145830845 Z98.890 Paroxysmal atrial fibrillation 025400112 I48.0 Ventricula r premature beats 15697652 I49.3 History of maze procedure for atrial fibrillation 242400958 Z98.890 History of repair of mitral valve 805548828 Z98.890 Left atria l appendage absent 872313907 Q20.8 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 16648623 I44.4 Cardiomyopathy 00682611 I42.9 [id number] ARCHANA Cooper Cardiac EP [facility] [place] [address] [address] 11/26/2022 14:57:35 11/26/2022 16:03:00 Cardiac arrhythmia 296539527 I49.9 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 60472210 I44.4 Persistent atrial fibrillation 882822508 I48.19 Cardiac pa cemaker in situ 757983065 Z95.0 [id number] ARCHANA Cooper Cardiac EP [facility] [place] [address] [address] 06/06/2023 14:43:25 06/06/2023 16:06:44 Cardiac arrhythmia 247801598 I49.9 Atrial flutter 0044465 I 48.92 Cardiac pa cemaker in situ 869799288 Z95.0 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 49697737 I44.4 Nonsustain ed monomorphic ventricular tachycardia 3298121719 I47.29 [id number] Angelita Chambers PA Cardiac EP [facility] [place] [address] [place] [address] 12/05/2023 15:13:26 12/05/2023 16:18:04 Cardiac arrhythmia 599209357 I49.9 Atrial flutter 4423208 I 48.92 Cardiac pa cemaker in situ 454406029 Z95.0 Nonsustain ed ventricular tachycardia 870209598 I47.20 [id number] ARCHANA Cooper Cardiac EP [facility] [place] [address] [address] 06/01/2024 15:17:26 06/04/2024 11:25:01 Cardiac arrhythmia 327912939 I49.9 Cardiac pa willie in situ 698726212 Z95.0 Atrial flutter 7990271 I 48.92 Left atria l appendage absent 718504244 Q20.8 [id number] Annette Cuellar RN Cardiac EP [facility] [place] [address] [facility] [place] [address] 07/06/2024 13:31:20 07/06/2024 14:46:18 Health Concerns Section Related Observation LastModified by Organization Detai ls LastModified Time None Recorded Concern Status LastModified by Organization Details LastModified Time None Recorded Advance Directives Directive Y: Payers Encounter Date Sequence Insurance Name Policy Number Policy Shelby Covered Member ID Shelby Member ID Guarantor Name 11/26/2022 1 MEDICARE B-[place]: NGS Eliazar Quispe [id number] Eliazar Wenninger 11/26/2022 2 [place] [id number] Eliazar Dowlingnninger [id number] Eliazar Wenninger 06/06/2023 1 MEDICARE B-[place]: NGS Eliazar Berriosinger [id number] Eliazar Wenninger 06/06/2023 2 [place] [id number] Eliazar Dowlingnninger [id number] Eliazar Wenninger 12/05/2023 1 MEDICARE B-[place]: NGS Eliazar Dowlingnninger [id number] Eliazar Wenninger 12/05/2023 2 [place] [id number] Eliazar Dowlingnninger [id number] Eliazar Wenninger 06/01/2024 1 MEDICARE B-CT: NGS Eliazar Dowlingnninger [id number] Eliazar Wenninger 06/01/2024 2 [place]PPLE[place]) [id number] Eliazar Dowlingnninger [id number] Eliazar Wenninger 07/06/2024 1 MEDICARE B-CT: NGS Eliazar Dowlingnninger [id number] 24 Eliazar Wenninger 07/06/2024 2 [place]PPLEMENT) [id number] Eliazar Quispe [id number] Eliazar Quispe Notes Date Note Type [...] excellent health. 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 He was referred to Dr. White at [facility]. As far as I can [...] that time.More recently, he was admitted to [facility] on 01/18/20 with increasing shortness [...] that admission, he had an echocardiogram at [facility] done on 01/16/20. 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 He has a son Han who lives in [place].I would note that one of the possibilities [...] could always fall back on an AV sno catheter ablation and pacemaker implantation, but this [...] distribution.His preadmission lab studies were drawn at [facility]. His vitamin B12 level [...] also showed 2500 PACs. We reviewed his Xcovery ari which showed episodes of possible A. [...] any cardiac complaints. He was using his Xcovery ari routinely which was showing sinus rhythm. A Holter monitor done prior to our visit showed a significant decline in his PVC burden and PAC burden. We did not make any changes to his medication. I asked that he follow-up with his residential carpenter regarding the mitral regurgitation noted on his echocardiogram.He did have a hernia repair shortly after that visit.However in December 2020 he was found to have atrial flutter on his Xcovery ari which was also confirmed on an EKG.He was brought to the EP lab on March 16, [address] Deras and underwent a successful ablation of mitral valve flutter with both epicardial and endocardial ablation. He was seen at [facility] in April 2021. He denied any recurrence of arrhythmias or palpitations. He was using his cardia monitor daily which did not show any atrial fibrillation or rapid heartbeats. He reported occasional chest discomfort and we asked him to follow-up with his residential carpenter. We also felt he should have another [...] remote monitoring is being followed by his residential carpenter. ARCHANA Cooper [address] [place] [address],[address] [place], [address], [facility], [facility] 11/26/2022 16:26:06 06/06/2023 text/html To [...] excellent health. 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 He was referred to Dr. White at [facility]. As far as I can [...] that time.More recently, he was admitted to [facility] on 01/18/20 with increasing shortness [...] that admission, he had an echocardiogram at [facility] done on 01/16/20. This showed [...] been on benadryl with skin discomfort and [employer] did not work; he has some relief with Ambien.He is single, he has a daughter Ellie Quispe who works in orthopedics for [employer]. He has a son Han who lives in [place].I would note that one of the possibilities [...] distribution.His preadmission lab studies were drawn at [facility]. His vitamin B12 level [...] also showed 2500 PACs. We reviewed his Xcovery ari which showed episodes of possible A. [...] any cardiac complaints. He was using his Xcovery ari routinely which was showing sinus rhythm. A Holter monitor done prior to our visit showed a significant decline in his PVC burden and PAC burden. We did not make any changes to his medication. I asked that he follow-up with his residential carpenter regarding the mitral regurgitation noted on his echocardiogram.He did have a hernia repair shortly after that visit.However in December 2020 he was found to have atrial flutter on his Xcovery ari which was also confirmed on an EKG.He was brought to the EP lab on March 16, [address] Deras and underwent a successful ablation of mitral valve flutter with both epicardial and endocardial ablation. He was seen at [facility] in April 2021. He denied any recurrence of arrhythmias or palpitations. He was using his cardia monitor daily which did not show any atrial fibrillation or rapid heartbeats. He reported occasional chest discomfort and we asked him to follow-up with his residential carpenter. We also felt he should have another [...] and he had a follow-up with his residential carpenter. PVC counters showed 75/h. He had an [...] to his discomfort. He is seeing his residential carpenter tomorrow. He has a home monitor which is being followed by his residential carpenter. ARCHANA Cooper [address] [place] [address],[address], [place], [address], [facility], [facility] 06/08/2023 10:07:34 12/05/2023 text/html To [...] excellent health. 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 He was referred to Dr. White at [facility]. As far as I can [...] that time.More recently, he was admitted to [facility] on 01/18/20 with increasing shortness [...] that admission, he had an echocardiogram at [facility] done on 01/16/20. 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 He has a son Han who lives in [place].I would note that one of the possibilities [...] distribution.His preadmission lab studies were drawn at [facility]. His vitamin B12 level [...] also showed 2500 PACs. We reviewed his Xcovery ari which showed episodes of possible A. [...] any cardiac complaints. He was using his Xcovery ari routinely which was showing sinus rhythm. A Holter monitor done prior to our visit showed a significant decline in his PVC burden and PAC burden. We did not make any changes to his medication. I asked that he follow-up with his residential carpenter regarding the mitral regurgitation noted on his echocardiogram.He did have a hernia repair shortly after that visit.However in December 2020 he was found to have atrial flutter on his Xcovery ari which was also confirmed on an EKG.He was brought to the EP lab on March 16, [address] Deras and underwent a successful ablation of mitral valve flutter with both epicardial and endocardial ablation. He was seen at [facility] in April 2021. He denied any recurrence of arrhythmias or palpitations. He was using his cardia monitor daily which did not show any atrial fibrillation or rapid heartbeats. He reported occasional chest discomfort and we asked him to follow-up with his residential carpenter. We also felt he should have another [...] by Dr. Castillo Aguillon. This is a edPULSEtronic dual-chamber unit which is an Becky XT [...] and he had a follow-up with his residential carpenter. PVC counters showed 75/h. He had an [...] breath, palpitations, near-syncope or syncope. ARCHANA Cooper [address] [facility],[address], [place], [address], [facility], [facility] 12/05/2023 16:24:46 06/01/2024 text/html To review, [...] excellent health. 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 He was referred to Dr. White at [facility]. As far as I can [...] that time.More recently, he was admitted to [facility] on 01/18/20 with increasing shortness [...] that admission, he had an echocardiogram at [facility] done on 01/16/20. 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 He has a son Han who lives in [place].I would note that one of the possibilities [...] distribution.His preadmission lab studies were drawn at [facility]. His vitamin B12 level [...] also showed 2500 PACs. We reviewed his Xcovery ari which showed episodes of possible A. [...] any cardiac complaints. He was using his Xcovery ari routinely which was showing sinus rhythm. A Holter monitor done prior to our visit showed a significant decline in his PVC burden and PAC burden. We did not make any changes to his medication. I asked that he follow-up with his residential carpenter regarding the mitral regurgitation noted on his echocardiogram.He did have a hernia repair shortly after that visit.However in December 2020 he was found to have atrial flutter on his Xcovery ari which was also confirmed on an EKG.He was brought to the EP lab on March 16, [address] Deras and underwent a successful ablation of mitral valve flutter with both epicardial and endocardial ablation. He was seen at [facility] in April 2021. He denied any recurrence of arrhythmias or palpitations. He was using his cardia monitor daily which did not show any atrial fibrillation or rapid heartbeats. He reported occasional chest discomfort and we asked him to follow-up with his residential carpenter. We also felt he should have another [...] by Dr. Castillo Aguillon. This is a edPULSEtronic dual-chamber unit which is an [employer] XT DR device. The device is programmed [...] and he had a follow-up with his residential carpenter. PVC counters showed 75/h. He had an [...] disease. He had close follow-up with his sales technician home theater. We noted frequent PVCs on his device [...] We also left a message with his residential carpenter to consider a CESILIA to see if the left atrial appendage is completely walled off as he had a resection at the time of his MVR/MAZE. Since that time, he reports having a CESILIA through his residential carpenter which apparently showed a leak at the left atrial appendage clipping site. The patient contacted our office for our recommendations. Given his elevated [id number] score of 5, I recommended that he restart Eliquis. He declined going back on the medication and understood there is a risk of stroke. We also recommended he see a structural residential carpenter to see if he is a candidate for a Watchman procedure depending on the size of the left atrial appendage leak. I offered to send him to a physician in [place] but since he lives in [place], he wanted to find someone in his area. He comes in today for follow-up. He is feeling well and denies palpitations, chest pain or shortness of breath. He is seeing his residential carpenter next month and will be seeing someone regarding the left atrial appendage leak as well. ARCHANA Cooper [address] [place] [address] ,[address], [place], [address], [facility], [facility] 06/01/2024 16:17:21
--- OUTSIDE RECORDS SUMMARY | 2024-08-15 08:55 | XMS_ITS | Encounter Summary ---
Author Organization Formerly [facility] Address [address] [place] [address] Care Team Providers Care Batt Machine Operator Name Role Phone Gerda Feldman MD Primary Care Provider Jaylen Amin MD Unavailable Robert Crockett MD Unavailable [phone] Osmel Huerta MD Unavailable [phone] Wil Deras MD Unavailable Encounter Details Date Type Department Care Team (Late st Contact Info) Description 03/11/2021 Telephone [facility] Heart & Vascular [place] - Electrophysiology [address] [place] [address] Wil Deras MD [address] [place] [address] Social History Tobacco Use Types Packs/Day Years [...] on filedocumented in this encounter Care Teams Batt Machine Operator Relationship Specialty Start Date End Date Po, Gerda Medley MD [address] [place] [address] PCP - General Internal Medicine 02/05/20 Jaylen Amin MD [address] [address] Chinchilla Farmer Cardiovascular Disease 02/05/20 Robert Crockett MD [address] [address] Physician Cardiac Electrophysiology 03/01/2004/29 Osmel Huerta MD [address] [place] [address] Drive [address] [place] [address] Surgery, General 09/04/20 Wil Deras MD [address] [place] [address] Cardiovascular Disease 04/30/21 documented as of this encounter
--- OUTSIDE RECORDS SUMMARY | 2024-08-15 08:55 | XMS_ITS | Encounter Summary ---
Author Organization [facility] Address [address] [place] [address] Care Team Providers Care Steel Die Engraver Name Role Phone Gerda Feldman MD Primary Care Provider Jaylen Amin MD Unavailable Robert Crockett MD Unavailable [phone] Osmel Huerta MD Unavailable [phone] Wil Deras MD Unavailable Encounter Details Date Type Department Care Team (Late st Contact Info) Description 02/13/2021 Telephone [facility] Heart & Vascular [place] - Electrophysiology [address] [place] [address] Wil Deras MD [address] [place] [address] Social History Tobacco Use Types Packs/Day Years [...] on filedocumented in this encounter Care Teams Steel Die Engraver Relationship Specialty Start Date End Date Gerda Feldman MD [address] [place] [address] PCP - General Internal Medicine 02/05/20 Jaylen Amin MD [address] [address] Coding Advisor Cardiovascular Disease 02/05/20 Robert Crockett MD [address] [address] Physician Cardiac Electrophysiology 03/01/2004/29 Osmel Huerta MD [address] [place] [address] Surgery, General 09/04/20 Wil Deras MD [address] [place] [address] Cardiovascular Disease 04/30/21 documented as of this encounter
--- OUTSIDE RECORDS SUMMARY | 2024-08-15 08:55 | XMS_ITS | Encounter Summary ---
Author Organization [facility] Address [address] [place] [address] Care Team Providers Care School Business Administrator Name Role Phone Gerda Feldman MD Primary Care Provider aJylen Amin MD Unavailable Robert Crockett MD Unavailable [phone] Osmel Huerta MD Unavailable [phone] Wil Deras MD Unavailable Encounter Details Date Type Department Care Team (Late st Contact Info) Description 02/18/2020 Scanned Document [address] [place] [address] Provider, Janett, [address] [place] [address] Social History Tobacco Use Types Packs/Day Years [...] documented as of this encounter Care Teams School Business Administrator Relationship Specialty Start Date End Date Gerda Feldman MD [address] [place] [address] [place] [address] PCP - General Internal Medicine 02/05/20 Jaylen Amin MD [address] [address] Major League Baseball Player Cardiovascular Disease 02/05/20 Robert Crockett MD [address] [address] Physician Cardiac Electrophysiology 03/01/2004/29 Osmel Huerta MD [address] [place] [address] [address] [place] [address] Surgery, General 09/04/20 Wil Deras MD [address] [place] [address] Cardiovascular Disease 04/30/21 documented as of this encounter
--- OUTSIDE RECORDS SUMMARY | 2024-08-15 08:55 | XMS_ITS | Encounter Summary ---
Author Organization [facility] Address [address] [place] [address] Care Team Providers Care Home Care Consultant Name Role Phone Gerda Feldman MD Primary Care Provider Jaylen Amin MD Unavailable Robert Crockett MD Unavailable [phone] Osmel Huerta MD Unavailable [phone] Wil Deras MD Unavailable Encounter Details Date Type Department Care Team (Late st Contact Info) Description 05/22/2020 Scanned Document [address] [place] [address] Provider, Janett, [address] [place] [address] Social History Tobacco Use Types Packs/Day Years [...] on filedocumented in this encounter Care Teams Home Care Consultant Relationship Specialty Start Date End Date Gerda Feldman MD [address] [place] [address] PCP - General Internal Medicine 02/05/20 Jaylen Amin MD [address] [address] Gearcase Assembler Cardiovascular Disease 02/05/20 Robert Crockett MD [address] [address] Physician Cardiac Electrophysiology 03/01/2004/29 Osmel Huerta MD [address] [place] [address] Surgery, General 09/04/20 Wil Deras MD [address] [place] [address] Cardiovascular Disease 04/30/21 documented as of this encounter
--- OUTSIDE RECORDS SUMMARY | 2024-08-15 08:55 | XMS_ITS | Encounter Summary ---
Author Organization [facility] Address [address] [place] [address] Care Team Providers Care Mining Detail Draftsperson Name Role Phone Gerda Feldman MD Primary Care Provider [phone] Jaylen Amin MD Unavailable Robert Crockett MD Unavailable [phone] Osmel Huerta MD Unavailable Wil Deras MD Unavailable Encounter Details Date Type Department Care Team (Late st Contact Info) Description 05/06/2020 Prep for Surgery [facility] Heart & Vascular [place] - Electrophysiology [address] [place] [address] [place] [address] Sophie Gtz, GLAZE GRINDER [address] [address] Social History Tobacco Use Types Packs/Day Years [...] documented as of this encounter Care Teams Mining Detail Draftsperson Relationship Specialty Start Date End Date Gerda Feldman MD [address] [place] [address] [place] [address] PCP - General Internal Medicine 02/05/20 Jaylen Amin MD [address] [place] [address] Director Clinical Information Services Cardiovascular Disease 02/05/20 Robert Crockett MD [address] [place] [address] Physician Cardiac Electrophysiology 03/01/2004/29 Osmel Huerta MD [address] [place] [address] [address] [place] [address] Surgery, General 09/04/20 Wil Deras MD [address] [place] [address] Cardiovascular Disease 04/30/21 documented as of this encounter
--- OUTSIDE RECORDS SUMMARY | 2024-08-15 08:56 | XMS_ITS | Clinical Summary ---
Author Organization [facility] Address [address] [place] [place] [address] Phone Care Team Providers Care Hat Body Sorter Name Role Phone Gerda Feldman MD Primary Care Provider [phone] Allergies Active Allergy Reactions Criticality Noted Date [...] (11/05/2021): Added automatically from request for surgery [id number] Non-traumatic tendon rupture 01/24/2020 11/05/2021 Overview (11/05/2021): Alejandra young History of cardioversion 01/15/2020 Stroke 04/25/2018 11/05/2021 Immunizations Immunization Administration Dates Next Due Influenza, Unspecified 01/28/2021,2019,02/10/2019,03/22/2018 [...] 01/07/2020, 02/10/2019, Additional history exists Pneumococcal Vaccine: 50+ Years Completed 04/16/2019, 03/22/2018 Hepatitis B Vaccine Aged Out No longe r eligible based on patient's age to complete this topic Insurance Medicare [facility] Medicare [facility] Care Teams Hat Body Sorter Relationship Specialty Start Date End Date Gerda Feldman MD [facility] [address] [place], [place] PCP - General Internal Medicine 10/21/21
--- OUTSIDE RECORDS SUMMARY | 2024-08-15 08:56 | XMS_ITS | Clinical Summary ---
Author Organization [facility] Address [address] [place] [address] Care Team Providers Care Bill Board Poster Name Role Phone Gerda Feldman MD Primary Care Provider Jaylen Amin MD Unavailable [phone] Osmel Huerta MD Unavailable [phone] Wil Deras MD Unavailable Allergies Active Allergy Reactions Criticality Noted Date Comments Metoprolol Palpitations Medium 03/01/2020 Severe dizziness Sulfa Antibiotics Unknown/Patient and Family Unable to Define Medium 05/07/2020 Pt states he had sulfa as child and does not remember reaction. Medications apixaban (ELIQUIS) 5 MG tablet Take 5 mg by mouth 2 (two) times a day. Active zolpidem (AMBIEN) 10 MG tablet Take 10 mg by mouth nightly as needed. for sleep 0 Active benzocaine-mentho l (CHLORASEPTIC) 15-3.6 mg Lozenge lozengeIndication s:Persistent atrial fibrillation (HCC) Apply 1 lozenge to the mouth or throat every 2 (two) hours as needed (throat discomfort). 42 lozenge 1 Active docosanol (ABREVA) 10 % CreamIndications: Herpes labialis Apply topically 5 (five) times a day. 1 Tube 1 Active cholecalciferol (CHOLECALCIFEROL) 25 MCG (1000 UT) tablet Take 1,000 Units by mouth daily. Active Ascorbic Acid (vitamin C) 1000 MG tablet Take 6,000 mg by mouth daily. Active Flaxseed, Linseed, (Flax Seed Oil) 1000 MG Cap Take 24,000 mg by mouth. Active carvedilol (COREG) 3.125 MG tabletIndications :Cardiomyopathy, unspecified type (HCC) Take 1 tablet (3.125 mg total) by mouth 2 (two) times a day with meals. 180 tablet 3 1 Active Cyanocobalamin (VITAMIN B-12 PO) Take 50 mg by mouth daily. Active PATIENT OWN MEDICATION Luten 10 mg every day Active Magnesium 400 MG Cap Take by mouth daily. Active folic acid (Folate) 400 MCG tablet Take 400 mcg by mouth daily. Active Blue Point-3 Fatty Acids (FISH OIL PO) Take by mouth daily. Active Active Problems Problem Noted Date Diagnosed Date Atrial flutter 02/03/2021 Overview (02/03/2021): Added automatically from request for surgery [id number] Persistent atrial fibrillation 05/07/2020 Tendon rupture, nontraumatic 01/24/2020 Overview (03/01/2020): Alejandra young History of cardioversion 01/15/2020 Stroke 04/25/2018 Dyspnea Ankle edema Insomnia Nerve damage Overview (03/01/2020): Right arm Arthritis Overview (03/01/2020): right foot Encounters Date Type Department Care Team Description 07/24/2024 2:35 PM EDT Ancillary Procedure [facility] [address] [address] 07/24/2024 2:30 PM EDT [facility] [address] [id number] Davi Hull MD Pain in right ankle [...] 2 views-Right (07/24/2024 2:41 PM EDT) Narrative [facility] - 07/24/2024 2:41 PM EDT This exam was performed in office at [facility] and images reviewed by orthopedic provider. ??Any findings are documented within ambulatory encounter note on date of service. Davi [facility] ORDERA BLES Final Result Performing Organization Address [facility] Co de Phone Number OA * XR Ankle 3+ views-Right (07/24/2024 2:41 PM EDT) Narrative [facility] - 07/24/2024 2:41 PM EDT This exam was performed in office at [facility] and images reviewed by orthopedic provider. ??Any findings are documented within ambulatory encounter note on date of service. Davi [facility] ORDERA BLES Final Result Performing Organization Address [facility] Co de Phone Number [facility] from Last 3 Months Insurance MEDICARE PART A & B MEDICARE PART A & B [place] [id number] Advance Directives * Full Code (Latest Code Status on File) Date Activated Date Inactivated Comments 03/16/2021 3:20 PM * Full Code Date Activated Date Inactivated Comments 05/07/2020 7:40 PM 03/16/2021 6:29 AM Care Teams Bill Board Poster Relationship Specialty Start Date End Date Gerda Feldman MD [address] [place] [address] [place] [address] PCP - General Internal Medicine 02/05/20 Jaylen Amin MD [address] [address] Specialty Manufacturing Supervisor Cardiovascular Disease 02/05/20 Osmel Huerta MD [address] [place] [address] [address] [place] [address] Surgery, General 09/04/20 Wil Deras MD [address] [place] [address] Cardiovascular Disease 04/30/21
--- OUTSIDE RECORDS SUMMARY | 2024-08-15 08:56 | XMS_ITS | Clinical Summary ---
Author Organization [facility] Address [address] [place] [phone] Phone Care Team Providers Care Casino Change Attendant Name Role Phone Physician, No Pcp Primary [...] History Medical History Date Comments Atrial fibrillation ([facility] V24, [facility] V28) CHF (congestive heart failure) ([facility] V24, [facility] /[facility] V28) CVA (cerebral vascular accident) ([facility] V24, C [place]/[facility] V28) Social History Tobacco Use Types Packs/Day Years [...] - 1-dose 75+ series) 2023 COVID-19 Vaccine (2023-2 5 season) 2023 Influenza Vaccine (Season Ended) [...] age to complete this topic Meningococcal B Vaccine Aged Out No l onger eligible based on patient's age to complete this topic RSV Immunization Patients Un kirk 20 months Aged Out No longer eligible b ased on patient's age to complete this topic Varicella Vaccines Aged Out No longer eligible based on patient's age to complete this topic Insurance MEDICARE [facility]) Care Teams Casino Change Attendant Relationship Specialty Start Date End Date Physician, No Pcp PCP - General 10/12/21
--- OUTSIDE RECORDS SUMMARY | 2024-08-15 08:56 | XMS_ITS | Encounter Summary ---
Author Organization [facility] Address [address] [place] [address] Care Team Providers Care Emergency Service Worker Name Role Phone Gerda Feldman MD Primary Care Provider Jaylen Amin MD Unavailable [phone] Osmel Huerta MD Unavailable [phone] Wil Deras MD Unavailable Encounter Details Date Type Department Care Team (Late st Contact Info) Description 07/21/2021 Scanned Document [address] [address] Provider, MD Janett [address] [place] [address] Social History Tobacco Use Types Packs/Day Years [...] on filedocumented in this encounter Care Teams Emergency Service Worker Relationship Specialty Start Date End Date Gerda Feldman MD [address] [place] [address] [place] [address] PCP - General Internal Medicine 02/05/20 Jaylen Amin MD [address] [place] [address] Parent Coach Cardiovascular Disease 02/05/20 Osmel Huerta MD [address] [place] [address] [address] [place] [address] Surgery, General 09/04/20 Wil Deras MD [address] [place] [address] Cardiovascular Disease 04/30/21 documented as of this encounter
--- OUTSIDE RECORDS SUMMARY | 2024-08-15 08:56 | XMS_ITS | Encounter Summary ---
Author Organization [facility] Address [address] [place] [address] Care Team Providers Care Mold Bunch Trimmer Name Role Phone Gerda Feldman MD Primary Care Provider Jaylen Amin MD Unavailable [phone] Robert Crockett MD Unavailable [phone] Osmel Huerta MD Unavailable [phone] Wil Deras MD Unavailable Reason for Visit * Reason Comments Advice Only Encounter Details Date Type Department Care Team ([facility] Contact Info) Description 05/16/[address] [address] Robert Crockett MD [address] [place] [address] [address] [place] [address] Advice Only Social History Tobacco [...] was very grateful. He stated he called [facility] and they havehim on a cancellation list [...] need to be cleared by his general recyclable materials distributor. Patient stated his recyclable materials distributor will not clear him until he sees [...] Patient states he booked his holter at [facility] in [place] since he lives close but it is not scheduled until 06/05. Patient would like to know if he needs to reschedule the 06/06appointment. Please advise. documented in this encounter Plan of Treatment Not on file documented as of this encounter Visit Diagnoses Not on filedocumented in this encounter Care Teams Mold Bunch Trimmer Relationship Specialty Start Date End Date Po, Gerda Medley MD [address] [place] [address] [place] [address] PCP - General Internal Medicine 02/05/20 Jaylen Amin MD [address] [place] [address] Rn Interventional Cardiovascular Disease 02/05/20 Robert Crockett MD [address] [place] [address] Physician Cardiac Electrophysiology 03/01/2004/29 Osmel Huerta MD [address] [place] [address] Drive [address] [place] [address] Surgery, General 09/04/20 Wil Deras MD [address] [place] [address] Cardiovascular Disease 04/30/21 documented as of this encounter
--- OUTSIDE RECORDS SUMMARY | 2024-08-15 08:56 | XMS_ITS | Encounter Summary ---
Author Organization [facility] Address [address] [place] [address] Care Team Providers Care Wood Stainer Name Role Phone Gerda Feldman MD Primary Care Provider Jaylen Amin MD Unavailable [phone] Robert Crockett MD Unavailable [phone] Osmel Huerta MD Unavailable [phone] Wil Deras MD Unavailable Encounter Details Date Type Department Care Team (Late st Contact Info) Description 02/15/[address] [address] Robert Crockett MD [address] [place] [address] [address] [place] [address] Social History Tobacco Use Types [...] documented as of this encounter Care Teams Wood Stainer Relationship Specialty Start Date End Date Gerda Feldman MD [address] [place] [address] [place] [address] PCP - General Internal Medicine 02/05/20 Jaylen Amin MD [address] [address] Boatbuilder Apprentice Wood Cardiovascular Disease 02/05/20 Robert Crockett MD [address] [address] Physician Cardiac Electrophysiology 03/01/2004/29 Osmel Huerta MD [address] [place] [address] Drive [address] [place] [address] Surgery, General 09/04/20 Wil Deras MD [address] [place] [address] Cardiovascular Disease 04/30/21 documented as of this encounter
--- OUTSIDE RECORDS SUMMARY | 2024-08-15 08:56 | XMS_ITS | Encounter Summary ---
Author Organization [facility] Address [address] [place] [address] Care Team Providers Care Quilting Supervisor Name Role Phone Gerda Feldman MD Primary Care Provider Jaylen Amin MD Unavailable [phone] Robert Crockett MD Unavailable [phone] Osmel Huerta MD Unavailable [phone] Wil Deras MD Unavailable Encounter Details Date Type Department Care Team (Late st Contact Info) Description 02/15/2020 Abstract [facility]- [address] [place] [phone] [address] Social History Tobacco Use Types Packs/Day Years [...] documented as of this encounter Care Teams Quilting Supervisor Relationship Specialty Start Date End Date Gerda Feldman MD [address] [place] [address] [place] [address] PCP - General Internal Medicine 02/05/20 Jaylen Amin MD [address] [address] Lead Etl Developer Cardiovascular Disease 02/05/20 Robert Crockett MD [address] [address] Physician Cardiac Electrophysiology 03/01/2004/29 Osmel Huerta MD [address] [place] [address] Drive [address] [place] [address] Surgery, General 09/04/20 Wil Deras MD [address] [place] [address] Cardiovascular Disease 04/30/21 documented as of this encounter
--- OUTSIDE RECORDS SUMMARY | 2024-08-15 08:56 | XMS_ITS | Encounter Summary ---
Author Organization [facility] Address [address] [place] [address] Care Team Providers Care Class A Regional Drivers Name Role Phone Gerda Feldman MD Primary Care Provider Jaylen Amin MD Unavailable Robert Crockett MD Unavailable [phone] Osmel Huerta MD Unavailable [phone] Wil Deras MD Unavailable Encounter Details Date Type Department Care Team (Late st Contact Info) Description 02/15/2020 Scanned Document [address] [place] [address] Provider, Janett, [address] [place] [address] Social History Tobacco Use Types Packs/Day Years [...] documented as of this encounter Care Teams Class A Regional Drivers Relationship Specialty Start Date End Date Gerda Feldman MD [address] [place] [address] [place] [address] PCP - General Internal Medicine 02/05/20 Jaylen Amin MD [address] [address] [facility] Cardiovascular Disease 02/05/20 Robert Crockett MD [address] [address] Physician Cardiac Electrophysiology 03/01/2004/29 Osmel Huerta MD [address] [place] [address] [address] [place] [address] Surgery, General 09/04/20 Wil Deras MD [address] [place] [address] Cardiovascular Disease 04/30/21 documented as of this encounter
== END 2024-08-15 08:59 | disposition home or self-care (01) ==
PROVIDERS: PCP Internal Medicine; Visit Provider Physician Assistant
DX: S00.12XA Contusion of left eyelid and periocular area, initial encounter (principal)

== ENCOUNTER → 2024-08-15 08:32 | Outpatient (BNVA) | payer MEDICARE, SELFPAY | PROVIDERS: PCP Internal Medicine; Visit Provider Physician Assistant | DX: S00.12XA Contusion of left eyelid and periocular area, initial encounter (principal) | CPT/HCPCS: 99212 ==

== ENCOUNTER 2024-09-14 10:45 | Outpatient (REF) | payer MEDICARE, SELFPAY ==
[2024-09-14 16:35] LABS: Urine Cytology See Pathology rpt
== END 2024-09-14 10:46 | disposition home or self-care (01) ==
LOC: HO.LAB 10:45
PROVIDERS: PCP Internal Medicine; Visit Provider Urology
DX: R39.12 Poor urinary stream (principal); N39.0 Urinary tract infection, site not specified
CPT/HCPCS: 52310; 81003; 87086; 88112

== ENCOUNTER 2024-09-14 10:45 | Outpatient (AMB) | payer MEDICARE, SELFPAY ==
--- OUTSIDE RECORDS SUMMARY | 2024-09-14 10:49 | XMS_ITS | Encounter Summary ---
Author Organization [facility] Address [address] [place] [address] Care Team Providers Care Geothermal Powerplant Mechanic Name Role Phone Gerda Feldman MD Primary Care Provider Jaylen Amin MD Unavailable Robert Crockett MD Unavailable [phone] Osmel Huerta MD Unavailable [phone] Wil Deras MD Unavailable Encounter Details Date Type Department Care Team (Late st Contact Info) Description 09/05/2020 Scanned Document [address] [place] [address] Provider, Janett, [address] [place] [address] Social History Tobacco Use Types Packs/Day Years [...] on filedocumented in this encounter Care Teams Geothermal Powerplant Mechanic Relationship Specialty Start Date End Date Gerda Feldman MD [address] [place] [address] Dr Youssef [address] [place] [address] PCP - General Internal Medicine 02/05/20 Jaylen Amin MD [address] [address] Lamination Builder Cardiovascular Disease 02/05/20 Robert Crockett MD [address] [address] Physician Cardiac Electrophysiology 03/01/2004/29 Osmel Huerta MD [address] [place] [address] Dr Youssef [address] [place] [address] Surgery, General 09/04/20 Wil Deras MD [address] [place] [address] Cardiovascular Disease 04/30/21 documented as of this encounter
--- NOTE | 2024-09-14 11:00 | MHC.OFFVIS ---
Intake Visit Reasons: Cysto/ stent removal Intake Note: Patient is present for Cystoscopy/STENT REMOVAL Urology Medication:VITAMIN C Antibiotic Allergy:GABAPENTIN,ATORVASTATIN,ROSUVASTATIN,SULFA,AMOXICILLIN Blood Thinner:ASPIRIN Lot:[id number] Exp:08/31/26 Careers Adviser Required: No Allergies gabapentin Allergy (Severe, Verified 09/14/24 11:04) Dizziness atorvastatin Allergy (Intermediate, Verified 09/14/24 11:04) Muscle cramps rosuvastatin Allergy (Intermediate, Verified 09/14/24 11:04) Muscle cramps Sulfa (Sulfonamide Antibiotics) [SULFA(SULFONAMIDE ANTIBIOTICS)] Allergy (Mild, Verified 09/14/24 11:04) RASH metoprolol Adverse Reaction (Severe, Verified 09/14/24 11:04) Chest Pain, sob, dizziness amoxicillin Adverse Reaction (Mild, Verified 09/14/24 11:04) Rash HPI Comments Details: Eliazar is a pleasant male. He is a patient of Dr. Feldman. He seen for the following urologic conditions - chronic hydronephrosis - lower urinary tract symptoms Follow-up stenting with Lasix renogram Lasix renogram - Right kidney cortical function is 18.6% and left kidneys 81.4 percent.The T half post Lasix cannot be calculated the right kidney as there is no response. Here for cysto stent removal Chronic hydronephrosis Has had progressive medical renal disease last creatinine 2.3 has been in this range since 2021, 06/19 2.2 Renal ultrasound showing right hydronephrosis with normal parenchyma Lasix renogram 03/18 minimal activity right side, 07/17 with right stent in place minimal response right side. 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 Atherosclerotic cardiovascular disease Normally functioning cardiac pacemaker present Acute kidney injury Generalized anxiety disorder Osteoarthritis of knees, bilateral Obstructive sleep apnea (adult) (pediatric) DVT (deep venous thrombosis) Nasal polyp Asthma Nonrheumatic mitral valve regurgitation Cardiomyopathy Cerebral infarction due to embolism of unspecified cerebral artery PVC (premature ventricular contraction) Anxiety Allergic rhinitis Insomnia Congestive heart failure Gastroesophageal reflux disease Impaired glucose tolerance Congestive heart failure Lupus anticoagulant positive Paroxysmal atrial fibrillation Hypercholesterolemia Surgical History H/O hernia repair Ventral hernia Status post mitral valve repair History of cardiac radiofrequency ablation (~03/16/21) Status post arthroscopy of left knee History of cardioversion (~01/17/20) S/P medial meniscectomy of left knee History of arthroscopy of left knee Hx of repair of right rotator cuff History of tonsillectomy Family History Father HTN (hypertension) CVA (cerebral vascular accident) Mother Skin cancer Maternal Uncle Colon cancer Son No problems noted. Daughter No problems noted. Family/Other Breast cancer Paternal Uncle Colon cancer Social History Housing: House Are you a primary foster care social worker to a significant other at home: No Do you presently have visiting nurse or other home services: No Alcohol intake: never Patient Tobacco Use Status: Former Tobacco user Tobacco use type: Cigarette Years Smoked: 12 +/- e-Cigarette/Vaping Use: Never Used Second Hand Smoke Exposure: Yes service: No Current occupational status: retired Cognitive needs: No Hearing needs: No Vision needs: No Review of Systems Const Denies chills and Denies fever(s) Card Reports no additional complaints and Denies syncope Resp Denies cough GI Denies abdominal pain and Denies heartburn Reports as per HPI and Denies change in libido Neuro Denies syncope Psych Denies change in libido Endo Denies change in libido Physical Exam Const General: cooperative, healthy appearing, comfortable and no acute distress Orientation/consciousness: patient oriented x3 HEENT Face and sinus: Yes normal facial exam Mouth: moist mucous membranes Neck Neck: Yes normal visual inspection, Yes full ROM and Yes trachea midline Chest Chest palpation & inspection: normal inspection of the chest Resp Effort & Inspection: normal respiratory effort, able to speak in complete sentences and no respiratory distress GI Inspection: Yes normal to inspection Back/Spine/Pelvis Cervical Spine: normal cervical lordosis Thoracic/Lumbar Spine: thoracic and lumbar spine normal to inspection Skin General skin exam: no rashes or lesions noted Neuro General: patient oriented x3, gait normal, tone normal and moves all extremities Extrem General: Yes normal to inspection and Yes capillary refill normal Office Procedures Cystoscopy Consent Discussed risk and benefit or proposed procedure with the patient. Information consent for procedure given to the patient. Discussed technical aspects, risks, benefits and alternatives in full. Addressed all of the patient's questions and concerns regarding the procedure. The patient demonstrated knowledge and understanding. They wish to proceed with this procedure. Preparation The patient was prepped in the usual manner. A network operations manager was present and in the room. Genitalia was prepped with betadine solution in a sterile manner. Lidocaine Jelly 2% was placed into the urethra and 16Fr flexible Olympus cystoscope was inserted into the meatus after adequate lubrication. Procedure A well lubricated 16 Romansh cystoscope was placed No abnormality noted of urethra during placement Indwelling stent seen within bladder emerging from right ureteric orifices The stent was grasped with a 3 prong grasper and removed without difficulty The patient tolerated the procedure well [id number] DISPOSABLE SCOPE URO-G FLEXIBLE SCOPE Procedure code (CPT) selection complete Office Meds lidocaine HCl 2 % mucosal jelly in applicator Performing Provider: Antoine Kate MD [place] [facility] [place] [facility] Administered by: Surya Lopez LPN on 09/14/24 11:19 Dose Route Admin Location Dispensed Lot Number Expiration Date [facility] Supervisor Calibration 10 mL intra-urethral 10 mL nitrofurantoin monohydrate/macrocrystals 100 mg capsule Performing Provider: Antoine Kate MD [place] [facility] [place] [facility] Administered by: Surya Lopez LPN on 09/14/24 11:19 Dose Route Admin Location Dispensed Lot Number Expiration Date [place] Supervisor Calibration 100 mg PO 1 cap Results AMB Urinalysis, Automated UA Leukoctes 70 Dilshad/uL Last Edit by RAEANN Raymundo on 09/14/24 12:08 UA Nitrite Negative Last Edit by RAEANN Raymundo on 09/14/24 12:08 UA Urobilinogen 3.5 mg/dL Last Edit by RAEANN Raymundo on 09/14/24 12:08 UA Protein 15 mg/dL Last Edit by RAEANN Raymundo on 09/14/24 12:08 UA pH 5.0 Last Edit by RAEANN Raymundo on 09/14/24 12:08 UA Blood 200 Mark/uL Last Edit by RAEANN Raymundo on 09/14/24 12:08 UA Specific [employer] 1.015 Last Edit by RAEANN Raymundo on 09/14/24 12:08 UA Ketone Negative Last Edit by RAEANN Raymundo on 09/14/24 12:08 UA Bilirubin 0 mg/dL Last Edit by RAEANN Raymundo on 09/14/24 12:08 UA Glucose 0 mg/dL Last Edit by RAEANN Raymundo on 09/14/24 12:08 Results Reviewed Results Reviewed: Laboratory Last Values Urine pH (Auto) 5.0 09/14/24 12:07 Specific [employer] (Auto) 1.015 09/14/24 12:07 Urine Protein (Auto) 15 mg/dL 09/14/24 12:07 Glucose (UA)(Auto) 0 mg/dL 09/14/24 12:07 Urine Ketones (Auto) Negative 09/14/24 12:07 Urine Blood (Auto) 200 Mark/uL 09/14/24 12:07 Urine Nitrite (Auto) Negative 09/14/24 12:07 Urine Bilirubin (Auto) 0 mg/dL 09/14/24 12:07 Urine Urobilinogen (Auto) 3.5 mg/dL 09/14/24 12:07 Leukocyte Esterase (Auto) 70 Dilshad/uL 09/14/24 12:07 Assessment & Plan Assessment & Plan (1) Atrophic kidney, acquired: Code(s): N26.1 - Atrophy of kidney (terminal) Category: Medical (2) Hydronephrosis: Comment: 05/14/24 PreOperative Diagnosis: Right hydronephrosis Post Operative Diagnosis: Right proximal ureteric stricture with hydronephrosis Procedure: - cystoscopy, right retrograde - right dilatation of ureteric orifice under fluoroscopy - right ureteroscopy - dilatation of right proximal ureteric stricture - right stent placement Code(s): N13.30 - Unspecified hydronephrosis Category: Medical Qualifiers: Hydronephrosis type: unspecified Qualified Code(s): N13.30 - Unspecified hydronephrosis Plan Six-month follow-up Lasix renogram Orders: Orders AMB Urinalysis Automated 09/14/24 Z13.9 - Encounter for screening, unspecified AMB Cystoscopy 09/14/24 R39.12 - Poor urinary stream, Z96.0 - Presence of urogenital implants Urine Cytology 09/14/24 N39.0 - Urinary tract infection, site not specified Urine Culture 09/14/24 N39.0 - Urinary tract infection, site not specified NM renal flow w pharm int 6 Months N13.30 - Unspecified hydronephrosis, N26.1 - Atrophy of kidney (terminal) Patient Instructions: This note is constructed using voice recognition software. While every effort has been made to ensure accuracy leaf fat scraper errors may have been included. Imaging studies, laboratory and physical exam results were discussed and reviewed in detail. No major barriers to patient understanding were identified. An opportunity to ask questions regarding the treatment plan was provided. All questions were answered. The patient expressed understanding and agreement with the above treatment plan. The patient is aware they should contact our office by phone for worsening of their current condition or the appearance of new urologic symptoms. Compliance is encouraged with any medications and followup testing that is ordered. It is a privilege to participate in the urologic care of your patient. If you have any questions or concerns regarding treatment for the above conditions, or other urologic issues, please do not hesitate to contact me. The office telephone contact is [phone]. Sincerely, Dr Antoine Kate MD, [facility] - Urology Compassionate Specialist Care for the Genitourinary System Coding Level of Care Code Est Pt Level 3 (58904) Diagnoses Atrophic kidney, acquired N26.1 Hydronephrosis, unspecified hydronephrosis type N13.30 Hydronephrosis type: unspecified CPT Codes Cystoscopy - CPT: 18739-[id number] ([id number])
== END 2024-09-14 11:41 | disposition home or self-care (01) ==
LOC: HO.HUSH 10:46
PROVIDERS: PCP Internal Medicine; Visit Provider Urology
DX: R39.12 Poor urinary stream (principal); Z96.0 Presence of urogenital implants; Z13.9 Encounter for screening, unspecified
CPT/HCPCS: 52310

== ENCOUNTER 2024-09-28 12:44 | Outpatient (REF) | payer MEDICARE, SELFPAY ==
[2024-09-28 16:27] LABS: MANUAL DIFF FLAG NO
[2024-09-28 16:36] LABS: Basophils Percent Auto 0.5 % (0-2); Eosinophils Absolute Auto 0.3 X10*3/uL (0.0-0.4); Hematocrit 35.8 % (42.0-52.0); Hemoglobin 11.5 g/dl (14.0-18.0); Imm Gran Abs Auto 0.01 X10*3/uL (0.00-0.03); Imm Gran Pct Auto 0.2 % (0.0-0.4); Immature Retic Fraction 9.5 % (2.3-13.4); Lymphocytes Absolute Auto 1.3 X10*3/uL (1.2-4.9); Lymphocytes Percent Auto 22.5 % (20-40); Mean Corpuscular HGB Conc 32.1 g/dl (31.0-36.0); Mean Corpuscular Hemoglobin 30.2 pg (27.0-33.0); Mean Platelet Volume 9.4 fL (9.4-12.4); Monocytes Absolute Auto 0.5 X10*3/uL (0.1-1.2); Monocytes Percent Auto 7.7 % (2-11); Neutrophils Absolute Auto 3.7 x10*3/uL (2.0-8.3); Neutrophils Percent Auto 64.1 % (45-73); Platelet Count 273 X10*3/uL (160-400); Red Blood Count 3.81 X10*6/uL (4.60-5.80); Red Cell Distribution Width 14.4 % (11.0-16.0); Retic HGB Equivalent 32.4 pg (30.0-35.0); Reticulocyte Percent 1.4 % (0.5-1.8); Reticulocytes Absolute 0.052 X10*6/uL (0.026-0.095); White Blood Count 5.8 X10*3/uL (4.8-10.8)
[2024-09-28 16:38] LABS: Appearance Urine Clear; Color Urine Yellow; Glucose Urine UA Negative (Negative); Leukocyte Esterase Urine Trace (Negative); Nitrite Urine Negative (Negative); PH 5.5 (5.0-9.0); UMIC TRIGGER UACC YES; Urine Blood Negative (Negative); Urine Ketones Negative (Negative); Urine Protein Trace mg/dL (Neg-Trace)
[2024-09-28 16:43] LABS: Bacteria Urine None Seen (None Seen); Hyaline Casts Urine 0-2 /LPF (0-2); RBC Urine 0-2 /HPF (0-2); Squamous Epithelial Cell Urine 0-2 /HPF (0-2); UACC Culture Trigger YES
[2024-09-28 17:20] LABS: Folate 17.3 ng/mL (> or = 4.0); Prostate Specific Antigen Scr 0.59 ng/mL (<0.05-4.0); Vitamin B12 724 pg/mL (200-900)
[2024-09-28 19:10] LABS: Alkaline Phosphatase 90 U/L (39-117)
[2024-09-28 19:53] LABS: Anion Gap 13 (12-20)
[2024-09-28 19:58] LABS: Alanine Aminotransferase 30 U/L (0-40); Albumin Level 4.1 g/dL (3.5-5.0); Aspartate Amino Transferase 26 U/L (5-37); Bilirubin Total 0.7 mg/dL (0.0-1.0); Blood Urea Nitrogen 40 mg/dL (9-16); Calcium 9.6 mg/dL (8.4-10.2); Carbon Dioxide 21 mmol/L (22-29); Chloride 115 mmol/L (96-108); Cholesterol 178 mg/dL (<200); Estimated Glomerular Filt Rate 31; Glucose Random 99 mg/dL (60-115); HDL Cholesterol 82 mg/dL (>40); Iron 60 mcg/dL (45-160); LDL Cholesterol Calculated 86 mg/dL (<100); Percent Iron Saturation 19 % (15-50); Potassium 4.5 mmol/L (3.3-5.1); Sodium 144 mmol/L (135-145); Total Iron Binding Capacity 324 mcg/dL (228-428); Triglycerides 50 mg/dL (<150); Unsaturated Iron Binding 264 ug/dL
[2024-09-28 20:21] LABS: Ferritin 56 ng/mL (20-250); Free T4 (Free Thyroxine) 0.95 ng/dL (0.71-1.85); Thyroid Stimulating Hormone 1.47 uIU/mL (0.32-4.0)
== END 2024-09-28 12:45 | disposition home or self-care (01) ==
LOC: HO.HMGCLDS 12:44
PROVIDERS: PCP Internal Medicine; Visit Provider Internal Medicine
DX: N18.4 Chronic kidney disease, stage 4 (severe) (principal); E78.00 Pure hypercholesterolemia, unspecified; R30.0 Dysuria; Z12.5 Encounter for screening for malignant neoplasm of prostate
CPT/HCPCS: 36415; 80053; 80061; 81001; 82607; 82728; 82746; 83540; 84153; 84439; 84443; 85025; 85045; 87086

== ENCOUNTER 2024-10-11 14:43 | Outpatient (AMB) | payer MEDICARE, SELFPAY ==
--- NOTE | 2024-10-11 14:45 | A.OFFPC_ITS ---
Vital Signs 10/11/24 14:54 Height 6 ft 2 in Weight 202 lb 2 oz BMI 25.9 BP 118/60 Blood Pressure Location Lt brachial Position Sitting Pulse 73 Pulse Source Pulse Oximeter Pulse Oximetry (%) 98 Oxygen Delivery Method Room Air Intake Visit Reasons: CAD, hypercholesterol [employer] Required: No Accompanied by: Self / Same As Patient Allergies gabapentin Allergy (Severe, Verified 10/11/24 14:46) Dizziness atorvastatin Allergy (Intermediate, Verified 10/11/24 14:46) Muscle cramps rosuvastatin Allergy (Intermediate, Verified 10/11/24 14:46) Muscle cramps Sulfa (Sulfonamide Antibiotics) (SULFA(SULFONAMIDE ANTIBIOTICS)) Allergy (Mild, Verified 10/11/24 14:46) RASH metoprolol Adverse Reaction (Severe, Verified 10/11/24 14:46) Chest Pain, sob, dizziness amoxicillin Adverse Reaction (Mild, Verified 10/11/24 14:46) Rash Medication List - Last Reconciled 10/11/24 by Gerda Feldman MD albuterol sulfate 90 mcg/actuation (ProAir HFA) 2 puffs inhalation Q4H PRN alprazolam 0.5 mg PO DAILY PRN APAP Machine/Device As directed apixaban (Eliquis) 5 mg PO BID ascorbic acid (vitamin C) 1 g PO BID aspirin 81 mg PO DAILY cholecalciferol (vitamin D3) 25 mcg PO DAILY comp.stocking,thigh,long,large As directed 20-30 mm HG, black folic acid 1 mg PO DAILY loratadine 10 mg PO DAILY turmeric mg PO Tobacco use date assessed: 10/11/24 Fall risk assessment: No Falls in past year Last assessed Fall Risk: 10/11/24 Dental Screening Dental Screen Date: 10/11/24 Did you have a dental visit in the last 12 months?: No Did you have a dental problem in the last 6 months where you did not have access to dental care?: No Was dental information given to patient?: No [facility] Medical History History of cardiac pacemaker Vertigo 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 Atherosclerotic cardiovascular disease Normally functioning cardiac pacemaker present Acute kidney injury Generalized anxiety disorder Osteoarthritis of knees, bilateral Obstructive sleep apnea (adult) (pediatric) DVT (deep venous thrombosis) Nasal polyp Asthma Nonrheumatic mitral valve regurgitation Cardiomyopathy Cerebral infarction due to embolism of unspecified cerebral artery PVC (premature ventricular contraction) Anxiety Allergic rhinitis Insomnia Congestive heart failure Gastroesophageal reflux disease Impaired glucose tolerance Congestive heart failure Lupus anticoagulant positive Paroxysmal atrial fibrillation Hypercholesterolemia Surgical History H/O hernia repair Ventral hernia Status post mitral valve repair History of cardiac radiofrequency ablation (~03/16/21) Status post arthroscopy of left knee History of cardioversion (~01/17/20) S/P medial meniscectomy of left knee History of arthroscopy of left knee Hx of repair of right rotator cuff History of tonsillectomy Family History Father HTN (hypertension) CVA (cerebral vascular accident) Mother Skin cancer Maternal Uncle Colon cancer Son No problems noted. Daughter No problems noted. Family/Other Breast cancer Paternal Uncle Colon cancer Social History Housing: House Are you a primary home care attendant to a significant other at home: No Do you presently have visiting nurse or other home services: No Alcohol intake: never Patient Tobacco Use Status: Former Tobacco user Tobacco use type: Cigarette Years Smoked: 12 +/- e-Cigarette/Vaping Use: Never Used Second Hand Smoke Exposure: Yes service: No Current occupational status: retired Cognitive needs: No Hearing needs: No Vision needs: No Questionnaire PHQ-9 Over the last 2 weeks, how often have you been bothered by any of the following problems? 1. Little interest or pleasure in doing things: not at all 2. Feeling down, depressed, or hopeless: not at all 3. Trouble falling or staying asleep, or sleeping too much: not at all 4. Feeling tired or having little energy: not at all 5. Poor appetite or overeating: not at all 6. Feeling bad about yourself - or that you are a failure or have let yourself or your family down: not at all 7. Trouble concentrating on things, such as reading the newspaper or watching television: not at all 8. Moving or speaking so slowly that other people could have noticed. Or the opposite - being so fidgety or restless that you have been moving around a lot more than usual: not at all 9. Thoughts that you would be better off or of hurting yourself in some way: not at all Total score: 0 Depression Screening Interpretation: Negative Depression Screening Done: Yes Source: Developed by Drs. Branden Michael, Sherry Solorio, Frederic Brown and colleagues, with an educational mary from [employer]. Thrive Questionnaire Date Thrive assessed: 10/11/24 I am a: Patient What is your living situation today?: I have a steady place to live Within the past 12 months, did the food you bought not last and you didn't have the money to get more?: Never true Within the past 12 months, did you worry whether your food would run out before you got money to buy more?: Never true Do you have trouble paying for medicines?: No Do you have trouble getting transportation to medical appointments?: No Do you have trouble paying your heating and electricity bill?: No Do you have trouble taking care of your child, family member or friend?: No Do you have trouble with day-to-day activities such as bathing, preparing meals, shopping, managing finances, etc.?: No Are you currently unemployed and looking for a job?: No Are you interested in more education?: No Please select the resources that you would like help with: None Currently or been in a relationship where the following occur: No concerns reported THRIVE Score: 0 AUDIT C Alcohol Use Questionnaire (AUDIT-C) 1. How often do you have a drink containing alcohol?: Monthly or less 2. How many drinks containing alcohol do you have on a typical day when you are drinking?: 1 or 2 3. How often do you have six or more drinks on one occasion?: Never Total Score: 1 VAUGHN-7 AMB Questionnaire VAUGHN-7 Date VAUGHN - 7 assessed: 10/11/24 Feeling nervous, anxious, or on edge: 0 = Not at all Not being able to stop or control worryin = Not at all Worrying too much about different things: 0 = Not at all Trouble relaxin = Not at all Being so restless that it is hard to sit still: 0 = Not at all Becoming easily annoyed or irritable: 0 = Not at all Feeling afraid as if something awful might happen: 0 = Not at all Total VAUGHN-7 score (0-4 normal; 5-9 mild; 10-14 moderate; 15-21 severe): 0 Source: Developed by Drs. Branden Michael, Sherry Solorio, Frederic Brown and colleagues, with an educational mary from [employer]. Physical exam (Primary Care) Vital Signs: Last Vital Signs Pulse 73 10/11/24 14:54 BP 118/60 10/11/24 14:54 Pulse Ox 98 10/11/24 14:54 Oxygen Delivery Method Room Air 10/11/24 14:54 BMI result Body Mass Index 25.9 Tobacco/Smoking Status: Tobacco use Status Tobacco use date assessed 10/11/24 10/11/24 14:48 Patient Tobacco Use Status Former Tobacco user 10/11/24 14:48 Tobacco use type Cigarette 10/11/24 14:48 e-Cigarette/Vaping Use Never Used 10/11/24 14:48 PHQ-9: PHQ-9 Score PHQ-9: Total score 0 10/11/24 15:19 Depression Screening Interpretation: Negative Thrive Assessment: Date of Thrive Assessment Date Thrive assessed 10/11/24 10/11/24 14:48 Currently or been in a relationship where the following occur: No concerns re ported Const General: alert; No acute distress Eyes Conjunctivae: conjunctivae normal Resp Auscultation: clear to auscultation bilaterally Cardio Rate: regular rate Rhythm: regular rhythm GI Inspection: Yes normal to inspection Extrem General: Yes normal to inspection and No edema Coding Level of Care Code Est Pt Level 4 (46622) Complex EM visit Add On G2211 Diagnoses Chronic systolic congestive heart failure I50.22 Heart failure chronicity: chronic Heart failure type: systolic Cardiomyopathy, unspecified type I42.9 Cardiomyopathy type: unspecified Atherosclerotic cardiovascular disease I25.10 Hypercholesterolemia E78.00 CKD (chronic kidney disease) stage 4, GFR 15-29 ml/min N18.4 Anemia, unspecified type D64.9 Anemia type: unspecified type KAREN on CPAP G47.33; Z99.89 Hydronephrosis, unspecified hydronephrosis type N13.30 Hydronephrosis type: unspecified Paroxysmal atrial fibrillation I48.0 Pacemaker Z95.0 Colon cancer screening Z12.11 Assessment & Plan Assessment & Plan (1) Congestive heart failure: Comment: discussed about monitoring the weight and that torsemide can be used to help take out the fluid to help with the breathing Code(s): I50.9 - Heart failure, unspecified Category: Medical Qualifiers: Heart failure chronicity: chronic Heart failure type: systolic Qualified Code(s): I50.22 - Chronic systolic (congestive) heart failure Plan: Stable presently (2) Cardiomyopathy: Code(s): I42.9 - Cardiomyopathy, unspecified Category: Medical Qualifiers: Cardiomyopathy type: unspecified Qualified Code(s): I42.9 - Cardiomyopathy, unspecified Plan: Continue follow-up with cardiology (3) Atherosclerotic cardiovascular disease: Code(s): I25.10 - Atherosclerotic heart disease of [place] coronary artery without angina pectoris Category: Medical Plan: Control the cholesterol, weight, blood pressure, patient on Eliquis right now 5 mg twice a day will need blood work twice a day year (4) Hypercholesterolemia: Code(s): E78.00 - Pure hypercholesterolemia, unspecified Category: Medical Plan: Avoid fried foods, chicken skin, eggs, butter margarine, pastries and meat. Be it pork or beef they have a lot of cholesterol with atherosclerosis LDL goal of less than 70 and triglyceride of less than 150 but patient can not tolerate statins (5) CKD (chronic kidney disease) stage 4, GFR 15-29 ml/min: Code(s): N18.4 - Chronic kidney disease, stage 4 (severe) Category: Medical Plan: Avoid NSAIDs, keep well hydrated (6) Anemia: Code(s): D64.9 - Anemia, unspecified Category: Medical Qualifiers: Anemia type: unspecified type Qualified Code(s): D64.9 - Anemia, unspecified Plan: Stable and chronic continue to monitor (7) KAREN on CPAP: Code(s): G47.33 - Obstructive sleep apnea (adult) (pediatric); Z99.89 - Dependence on other enabling machines and devices Category: Medical Plan: uses the CPAP > 4 hours a night and benefits from this (8) Hydronephrosis: Comment: 05/14/24 PreOperative Diagnosis: Right hydronephrosis Post Operative Diagnosis: Right proximal ureteric stricture with hydronephrosis Procedure: - cystoscopy, right retrograde - right dilatation of ureteric orifice under fluoroscopy - right ureteroscopy - dilatation of right proximal ureteric stricture - right stent placement Code(s): N13.30 - Unspecified hydronephrosis Category: Medical Qualifiers: Hydronephrosis type: unspecified Qualified Code(s): N13.30 - Unspecified hydronephrosis Plan: Patient follows up with urology and had stent removal recently. (9) Paroxysmal atrial fibrillation: Code(s): I48.0 - Paroxysmal atrial fibrillation Category: Medical Plan: on anticoagulation with eliquis (10) Pacemaker: Code(s): Z95.0 - Presence of cardiac pacemaker Category: Medical Plan: PAtient will be seeing [facility] cardiology Dr. Huertas (11) Colon cancer screening: Code(s): Z12.11 - Encounter for screening for malignant neoplasm of colon Category: Medical Plan History of Present Illness The patient is a 74-year-old male presenting for a follow-up visit to manage multiple chronic conditions, including cardiomyopathy, atrial fibrillation, and chronic kidney disease. The patient has a history of cardiomyopathy and mitral regurgitation, which have been managed over the years with medication and regular monitoring. He also has atrial fibrillation and congestive heart failure, for which he is on anticoagulation therapy with Eliquis. The patient has a history of atherosclerotic cardiovascular disease and deep vein thrombosis, which have been managed with lifestyle modifications and medication. He also has peripheral vascular disease, which is monitored regularly. The patient has obstructive sleep apnea and uses a CPAP machine, although he reports not feeling rested despite its use. He has chronic kidney disease with a creatinine level of 2.09, which is stable compared to previous measurements. The patient has hypercholesterolemia, with an LDL level of 86, which is managed through diet as he cannot tolerate statins. He also has chronic anemia, which has been present since 2020 and is monitored regularly without invasive workup due to its stable nature. The patient has a history of chronic hydronephrosis and right proximal ureteral stricture, which have been managed with stent placement and follow-up with urology. He also has a history of right midfoot arthritis and left ankle inversion injury with stress fracture, which have been managed with injections and physical therapy. The patient reports tendinitis, which is managed with conservative measures. Health Maintenance - Colon cancer screening with Cologuard test last performed in August 2021, due for repeat screening. - Regular monitoring of cholesterol levels, with LDL currently at 86. - Regular follow-up with urology for hydronephrosis and ureteral stricture management. - Use of CPAP machine for obstructive sleep apnea management. - Regular blood work monitoring due to anticoagulation therapy with Eliquis. Social History - Reports difficulty sleeping despite using CPAP machine, possibly affecting daily energy levels. Review of Systems - Cardiovascular: Reports episodes of atrial fibrillation, denies chest pain. - Respiratory: Reports using CPAP machine, denies feeling rested. - Musculoskeletal: Reports right midfoot pain and tendinitis. - Neurological: Reports difficulty falling asleep, denies feeling rested after sleep. Physical Exam - Respiratory: Lungs clear to auscultation bilaterally. Results - Labs: Creatinine 2.09, stable compared to previous measurements. - Labs: LDL cholesterol 86, managed through diet. - Labs: B12 levels adequate. Plan The patient will continue with current management for cardiomyopathy and mitral regurgitation, including regular monitoring and medication adherence. Atrial fibrillation and congestive heart failure will be managed with ongoing anticoagulation therapy using Eliquis, with regular follow-up to monitor for any complications. For atherosclerotic cardiovascular disease and deep vein thrombosis, lifestyle modifications and medication adherence will continue to be emphasized. Tori pheral vascular disease will be monitored regularly to assess for any progression. The patient will continue using the CPAP machine for obstructive sleep apnea, with a referral to a neurologist to assess the settings and effectiveness of the device. Chronic kidney disease will be monitored with regular blood work to assess renal function, with creatinine levels currently stable. Hypercholesterolemia will be managed through dietary modifications, as the patient cannot tolerate statins, with regular monitoring of cholesterol levels. Chronic anemia will be monitored without invasive workup, as it remains stable and does not require immediate intervention. The patient will follow up with urology for management of chronic hydronephrosis and right proximal ureteral stricture, with stent placement as needed. Right midfoot arthritis and left ankle inversion injury will be managed with injections and physical therapy, with consideration of surgical intervention if symptoms worsen. Tendinitis will be managed with conservative measures, including rest and physical therapy. Patient was informed and verbally consented to the use of an ambient scribe for clinic note documentation during this visit. Discussion Notes During the visit, we discussed the management of the patient's chronic conditions, including cardiomyopathy, atrial fibrillation, and chronic kidney disease. We reviewed the importance of medication adherence, particularly with Eliquis for atrial fibrillation, and the need for regular monitoring of renal function and cholesterol levels. The patient was advised to continue using the CPAP machine for obstructive sleep apnea and to follow up with a neurologist to assess its effectiveness. We also discussed the management of chronic anemia, emphasizing the stable natu re of the condition and the decision to avoid invasive workup at this time. The patient was informed about the need for regular follow-up with urology for hydronephrosis and ureteral stricture management. We also reviewed the management of right midfoot arthritis and left ankle inversion injury, including the use of injections and physical therapy. Patient Instructions - Continue taking all prescribed medications as directed, especially Eliquis. - Use the CPAP machine every night for sleep apnea. - Follow up with the neurologist to check CPAP settings. - Maintain a heart-healthy diet to manage cholesterol levels. - Schedule regular follow-ups with urology for kidney and ureteral issues. - Monitor for any changes in symptoms and report them to your healthcare provider. Orders: Orders Complete Blood Count Auto Diff 6 Months D64.9 - Anemia, unspecified Reticulocyte Count 6 Months D64.9 - Anemia, unspecified Prostate Specific Antigen Scr 6 Months D64.9 - Anemia, unspecified Comprehensive Met. Panel 6 Months D64.9 - Anemia, unspecified Ferritin 6 Months D64.9 - Anemia, unspecified Free T4 (Free Thyroxine) 6 Months D64.9 - Anemia, unspecified Thyroid Stimulating Hormone 6 Months D64.9 - Anemia, unspecified Lipid Panel 6 Months D64.9 - Anemia, unspecified, E78.00 - Pure hypercholester olemia, unspecified IRON PROFILE 6 Months D64.9 - Anemia, unspecified Vitamin B12 and Folate 6 Months D64.9 - Anemia, unspecified Referrals Cologuard Test Z12.11 - Encounter for screening for malignant neoplasm of colon
[2024-10-11 14:54] VITALS: BP 118/60; PULSE 73; O2SAT 98; BMI 25.9
--- OUTSIDE RECORDS SUMMARY | 2024-10-11 16:01 | XMS_ITS | Encounter Summary ---
Author Organization [facility] Address [address] [place] [address] Care Team Providers Care Fisheries Officer Name Role Phone Gerda Feldman MD Primary Care Provider Jaylen Amin MD Unavailable Robert Crockett MD Unavailable [phone] Osmel Huerta MD Unavailable [phone] Wil Deras MD Unavailable Encounter Details Date Type Department Care Team (Late st Contact Info) Description 09/05/2020 Scanned Document [address] [place] [address] Provider, Janett, [address] [place] [address] Social History Tobacco Use Types Packs/Day Years [...] on filedocumented in this encounter Care Teams Fisheries Officer Relationship Specialty Start Date End Date Gerda Feldman MD [address] [place] [address] Dr Youssef [address] [place] [id number] PCP - General Internal Medicine 02/05/20 Jaylen Amin MD [address] [address] Skid Wrapper Cardiovascular Disease 02/05/20 Robert Crockett MD [address] [address] Physician Cardiac Electrophysiology 03/01/2004/29 Osmel Huerta MD [address] [place] [address] Dr Youssef [address] [place] [id number] Surgery, General 09/04/20 Wil Deras MD [address] [place] [id number] Cardiovascular Disease 04/30/21 documented as of this encounter
== END 2024-10-11 15:48 | disposition home or self-care (01) ==
LOC: HO.HMCH 14:43
PROVIDERS: PCP Internal Medicine; Visit Provider Internal Medicine
DX: I50.22 Chronic systolic (congestive) heart failure (principal); I42.9 Cardiomyopathy, unspecified; N18.4 Chronic kidney disease, stage 4 (severe); I48.0 Paroxysmal atrial fibrillation; I25.10 Atherosclerotic heart disease of native coronary artery without angina pectoris; E78.00 Pure hypercholesterolemia, unspecified; D64.9 Anemia, unspecified; G47.33 Obstructive sleep apnea (adult) (pediatric); Z99.89 Dependence on other enabling machines and devices; N13.30 Unspecified hydronephrosis; Z95.0 Presence of cardiac pacemaker; Z12.11 Encounter for screening for malignant neoplasm of colon

== ENCOUNTER → 2024-10-11 14:43 | Outpatient (BNVA) | payer MEDICARE, SELFPAY | PROVIDERS: PCP Internal Medicine; Visit Provider Internal Medicine | DX: I50.22 Chronic systolic (congestive) heart failure (principal); I42.9 Cardiomyopathy, unspecified; I25.10 Atherosclerotic heart disease of native coronary artery without angina pectoris; E78.00 Pure hypercholesterolemia, unspecified; N18.4 Chronic kidney disease, stage 4 (severe); D64.9 Anemia, unspecified; G47.33 Obstructive sleep apnea (adult) (pediatric); Z99.89 Dependence on other enabling machines and devices; I48.0 Paroxysmal atrial fibrillation; Z95.0 Presence of cardiac pacemaker | CPT/HCPCS: 99212 ==

== ENCOUNTER 2024-12-06 12:45 | Outpatient (REF) | payer MEDICARE, SELFPAY ==
--- OUTSIDE RECORDS SUMMARY | 2024-12-06 13:29 | XMS_ITS | Encounter Summary ---
Author Organization [facility] Address [address] [place] [address] Care Team Providers Care Label Coder Name Role Phone Gerda Feldman MD Primary Care Provider Jaylen Amin MD Unavailable [phone] Robert Crockett MD Unavailable [phone] Osmel Huerta MD Unavailable [phone] Wil Deras MD Unavailable Encounter Details Date Type Department Care Team (Late st Contact Info) Description 09/05/2020 Scanned Document [address] [place] [address] Provider, Janett, [address] [place] [address] Social History Tobacco Use Types Packs/Day Years [...] on filedocumented in this encounter Care Teams Label Coder Relationship Specialty Start Date End Date Gerda Feldman MD [address] [place] [address] Dr Youssef [address] [place] [id number] PCP - General Internal Medicine 02/05/20 Jaylen Amin MD [address] [address] Trampoline Team Coach Cardiovascular Disease 02/05/20 Robert Crockett MD [address] [address] Physician Cardiac Electrophysiology 03/01/2004/29 Osmel Huerta MD [address] [place] [address] Dr Youssef [address] [place] [id number] Surgery, General 09/04/20 Wil Deras MD [address] [place] [id number] Cardiovascular Disease 04/30/21 documented as of this encounter
--- OUTSIDE RECORDS SUMMARY | 2024-12-06 13:30 | XMS_ITS | Clinical Summary ---
Author Organization [facility] Address [address] [place] [address] Phone Care Team Providers Care Plane Tender Name Role Phone Physician, No Pcp Primary [...] History Medical History Date Comments Atrial fibrillation ([facility] V24, [facility] V28) CHF (congestive heart failure) ([facility] V24, [facility] V28) CVA (cerebral vascular accident) ([facility] V24, [facility] V28) Social History Tobacco Use Types Packs/Day [...] 94 10/12/2021 9:00 PM EDT Temperature 36.7 C (98 F) 10/12/2021 12:42 PM EDT Respiratory Rate 20 [...] 2) 1998 Cholesterol Screening (Lipid Panel) 10/12/2021 Falls Risk Assessment 10/12/2021 Hepatitis C Screening 10/12/2021 Medicare Annual Wellness Visit 10/12/2021 Social Influencers of Health Screening 10/12/2021 RSV Immunization Adult Patie nts (1 - 1-dose 75+ series) 2023 COVID-19 Vaccine ( - 2023-2 5 season) 2023 Depression Screening 04/25/2024 Influenza Vaccine (#1) 2024 HIB Vaccines Aged Out No longer [...] age to complete this topic Insurance MEDICARE [facility]) Care Teams Plane Tender Relationship Specialty Start Date End Date Physician, No Pcp PCP - General 10/12/21
--- OUTSIDE RECORDS SUMMARY | 2024-12-06 13:30 | XMS_ITS ---
Author Name [facility] Organization Unknown History of Medication Use Medication Directions Dispensed Refills Start Date End Date Stat us carvedilol (COREG) 3.125 MG tablet Take 1 tablet (3.125 mg total) by mouth 2 (two) times a day with meals. 06/06/2020 active benzocaine-menthol (CHLORASEPTIC) 15-3.6 mg Lozenge lozenge Apply 1 lozenge to the mouth or throat every 2 (two) hours as needed (throat discomfort). 05/08/2020 active docosanol (ABREVA) 10 % Cream Apply topically 5 (five) times a day. 05/08/2020 active zolpidem (AMBIEN) 10 MG tablet Take 10 mg by mouth nightly as needed. for sleep 02/26/2020 active tamsulosin 0.4 mg capsule TAKE 1 CAPSULE BY MOUTH AT BEDTIME FOR 14 DAYS 5 completed tamsulosin 0.4 mg capsule TAKE 1 CAPSULE BY MOUTH AT BEDTIME FOR 14 DAYS 5 completed tamsulosin 0.4 mg capsule TAKE 1 CAPSULE BY MOUTH AT BEDTIME FOR 14 DAYS 5 completed tamsulosin 0.4 mg capsule TAKE 1 CAPSULE BY MOUTH AT BEDTIME FOR 14 DAYS 5 completed tamsulosin 0.4 mg capsule TAKE 1 CAPSULE BY MOUTH AT BEDTIME FOR 14 DAYS 5 completed tamsulosin 0.4 mg capsule TAKE 1 CAPSULE BY MOUTH AT BEDTIME FOR 14 DAYS 5 completed tamsulosin 0.4 mg capsule TAKE 1 CAPSULE BY MOUTH AT BEDTIME FOR 14 DAYS 5 completed tamsulosin 0.4 mg capsule TAKE 1 CAPSULE BY MOUTH AT BEDTIME FOR 14 DAYS 5 completed tamsulosin 0.4 mg capsule TAKE 1 CAPSULE BY MOUTH AT BEDTIME FOR 14 DAYS 5 completed tamsulosin 0.4 mg capsule TAKE 1 CAPSULE BY MOUTH AT BEDTIME FOR 14 DAYS 5 completed tamsulosin 0.4 mg capsule TAKE 1 CAPSULE BY MOUTH AT BEDTIME FOR 14 DAYS 5 completed Vitamin D3 1 tablet daily 11/23 4 active Vitamin D3 1 tablet daily 11/23 4 active Vitamin D3 1 tablet daily 11/23 4 active Vitamin D3 1 tablet daily 11/23 4 active Vitamin D3 1 tablet daily 11/23 4 active Vitamin D3 1 tablet daily 11/23 4 active Vitamin D3 1 tablet daily 11/23 4 active Vitamin D3 1 tablet daily 11/23 4 active carvedilol 3.125 mg tablet TAKE 1 TABLET BY MOUTH TWICE DAILY WITH FOOD OR MEAL 4 completed carvedilol 3.125 mg tablet TAKE 1 TABLET BY MOUTH TWICE DAILY WITH FOOD OR MEAL 4 completed carvedilol 3.125 mg tablet TAKE 1 TABLET BY MOUTH TWICE DAILY WITH FOOD OR MEAL 4 completed carvedilol 3.125 mg tablet TAKE 1 TABLET BY MOUTH TWICE DAILY WITH FOOD OR MEAL 4 completed carvedilol 3.125 mg tablet TAKE 1 TABLET BY MOUTH TWICE DAILY WITH FOOD OR MEAL 4 completed carvedilol 3.125 mg tablet TAKE 1 TABLET BY MOUTH TWICE DAILY WITH FOOD OR MEAL 4 completed carvedilol 3.125 mg tablet TAKE 1 TABLET BY MOUTH TWICE DAILY WITH FOOD OR MEAL 4 completed carvedilol 3.125 mg tablet TAKE 1 TABLET BY MOUTH TWICE DAILY WITH FOOD OR MEAL 4 completed amlodipine 5 mg tablet TAKE 1 TABLET BY MOUTH DAILY 3 completed amlodipine 5 mg tablet TAKE 1 TABLET BY MOUTH DAILY 3 completed amlodipine 5 mg tablet TAKE 1 TABLET BY MOUTH DAILY 3 completed amlodipine 5 mg tablet TAKE 1 TABLET BY MOUTH DAILY 3 completed amlodipine 5 mg tablet TAKE 1 TABLET BY MOUTH DAILY 3 completed amlodipine 5 mg tablet TAKE 1 TABLET BY MOUTH DAILY 3 completed amlodipine 5 mg tablet TAKE 1 TABLET BY MOUTH DAILY 3 completed amlodipine 5 mg tablet TAKE 1 TABLET BY MOUTH DAILY 3 completed amoxicillin 500 mg capsule TAKE 1 CAPSULE BY MOUTH TWICE DAILY FOR 10 DAYS 3 completed amoxicillin 500 mg capsule TAKE 1 CAPSULE BY MOUTH TWICE DAILY FOR 10 DAYS 3 completed amoxicillin 500 mg capsule TAKE 1 CAPSULE BY MOUTH TWICE DAILY FOR 10 DAYS 3 completed amoxicillin 500 mg capsule TAKE 1 CAPSULE BY MOUTH TWICE DAILY FOR 10 DAYS 3 completed amoxicillin 500 mg capsule TAKE 1 CAPSULE BY MOUTH TWICE DAILY FOR 10 DAYS 3 completed amoxicillin 500 mg capsule TAKE 1 CAPSULE BY MOUTH TWICE DAILY FOR 10 DAYS 3 completed amoxicillin 500 mg capsule TAKE 1 CAPSULE BY MOUTH TWICE DAILY FOR 10 DAYS 3 completed amoxicillin 500 mg capsule TAKE 1 CAPSULE BY MOUTH TWICE DAILY FOR 10 DAYS 3 completed azithromycin 250 mg tablet TAKE DIRECTED ON PACKAGE 3 completed azithromycin 250 mg tablet TAKE DIRECTED ON PACKAGE 3 completed azithromycin 250 mg tablet TAKE DIRECTED ON PACKAGE 3 completed azithromycin 250 mg tablet TAKE DIRECTED ON PACKAGE 3 completed azithromycin 250 mg tablet TAKE DIRECTED ON PACKAGE 3 completed azithromycin 250 mg tablet TAKE DIRECTED ON PACKAGE 3 completed azithromycin 250 mg tablet TAKE DIRECTED ON PACKAGE 3 completed azithromycin 250 mg tablet TAKE DIRECTED ON PACKAGE 3 completed clarithromycin 500 mg tablet TAKE 1 TABLET BY MOUTH TWICE DAILY UNTIL ALL TAKEN 3 completed clarithromycin 500 mg tablet TAKE 1 TABLET BY MOUTH TWICE DAILY UNTIL ALL TAKEN 3 completed clarithromycin 500 mg tablet TAKE 1 TABLET BY MOUTH TWICE DAILY UNTIL ALL TAKEN 3 completed clarithromycin 500 mg tablet TAKE 1 TABLET BY MOUTH TWICE DAILY UNTIL ALL TAKEN 3 completed clarithromycin 500 mg tablet TAKE 1 TABLET BY MOUTH TWICE DAILY UNTIL ALL TAKEN 3 completed clarithromycin 500 mg tablet TAKE 1 TABLET BY MOUTH TWICE DAILY UNTIL ALL TAKEN 3 completed clarithromycin 500 mg tablet TAKE 1 TABLET BY MOUTH TWICE DAILY UNTIL ALL TAKEN 3 completed clarithromycin 500 mg tablet TAKE 1 TABLET BY MOUTH TWICE DAILY UNTIL ALL TAKEN 3 completed pravastatin 10 mg tablet TAKE 1 TABLET BY MOUTH AT BEDTIME 3 completed pravastatin 10 mg tablet TAKE 1 TABLET BY MOUTH AT BEDTIME 3 completed pravastatin 10 mg tablet TAKE 1 TABLET BY MOUTH AT BEDTIME 3 completed pravastatin 10 mg tablet TAKE 1 TABLET BY MOUTH AT BEDTIME 3 completed pravastatin 10 mg tablet TAKE 1 TABLET BY MOUTH AT BEDTIME 3 completed pravastatin 10 mg tablet TAKE 1 TABLET BY MOUTH AT BEDTIME 3 completed pravastatin 10 mg tablet TAKE 1 TABLET BY MOUTH AT BEDTIME 3 completed pravastatin 10 mg tablet TAKE 1 TABLET BY MOUTH AT BEDTIME 3 completed warfarin 5 mg tablet TAKE 1 TABLET BY MOUTH DAILY DIRECTED BY COU[facility]ADIN CLINIC 3 completed warfarin 5 mg tablet TAKE 1 TABLET BY MOUTH DAILY DIRECTED BY [facility] 3 completed warfarin 5 mg tablet TAKE 1 TABLET BY MOUTH DAILY DIRECTED BY [facility] 3 completed warfarin 5 mg tablet TAKE 1 TABLET BY MOUTH DAILY DIRECTED BY [facility] 3 completed warfarin 5 mg tablet TAKE 1 TABLET BY MOUTH DAILY DIRECTED BY [facility] 3 completed warfarin 5 mg tablet TAKE 1 TABLET BY MOUTH DAILY DIRECTED BY [facility] 3 completed warfarin 5 mg tablet TAKE 1 TABLET BY MOUTH DAILY DIRECTED BY COU[facility]ADIN CLINIC 3 completed warfarin 5 mg tablet TAKE 1 TABLET BY MOUTH DAILY DIRECTED BY COU[facility]ADIN CLINIC 3 completed amiodarone 100 mg tablet 1 TAB DAILY/ PO 3 completed amiodarone 100 mg tablet 1 TAB DAILY/ PO 3 completed amiodarone 100 mg tablet 1 TAB DAILY/ PO 3 completed amiodarone 100 mg tablet 1 TAB DAILY/ PO 3 completed amiodarone 100 mg tablet 1 TAB DAILY/ PO 3 completed amiodarone 100 mg tablet 1 TAB DAILY/ PO 3 completed amiodarone 100 mg tablet 1 TAB DAILY/ PO 3 completed amiodarone 100 mg tablet 1 TAB DAILY/ PO 3 completed carvedilol 12.5 mg tablet Take 1 tablet twice a day by oral route for 90 days. 2 completed carvedilol 12.5 mg tablet Take 1 tablet twice a day by oral route for 90 days. 2 completed carvedilol 12.5 mg tablet Take 1 tablet twice a day by oral route for 90 days. 2 completed carvedilol 12.5 mg tablet Take 1 tablet twice a day by oral route for 90 days. 2 completed carvedilol 12.5 mg tablet Take 1 tablet twice a day by oral route for 90 days. 2 completed carvedilol 12.5 mg tablet Take 1 tablet twice a day by oral route for 90 days. 2 completed carvedilol 12.5 mg tablet Take 1 tablet twice a day by oral route for 90 days. 2 completed carvedilol 12.5 mg tablet Take 1 tablet twice a day by oral route for 90 days. 2 completed Eliquis 5 mg tablet Take 1 tablet twice a day by oral route for 90 days. 2 completed Eliquis 5 mg tablet Take 1 tablet twice a day by oral route for 90 days. 2 completed Eliquis 5 mg tablet Take 1 tablet twice a day by oral route for 90 days. 2 completed Eliquis 5 mg tablet Take 1 tablet twice a day by oral route for 90 days. 2 completed Eliquis 5 mg tablet Take 1 tablet twice a day by oral route for 90 days. 2 completed Eliquis 5 mg tablet Take 1 tablet twice a day by oral route for 90 days. 2 completed Eliquis 5 mg tablet Take 1 tablet twice a day by oral route for 90 days. 2 completed Eliquis 5 mg tablet Take 1 tablet twice a day by oral route for 90 days. 2 completed furosemide 40 mg tablet 2 completed furosemide 40 mg tablet 2 completed furosemide 40 mg tablet 2 completed furosemide 40 mg tablet 2 completed furosemide 40 mg tablet 2 completed furosemide 40 mg tablet 2 completed furosemide 40 mg tablet 2 completed furosemide 40 mg tablet 2 completed aspirin 81 mg chewable tablet CHEW 1 TABLET BY MOUTH EVERY DAY active aspirin 81 mg chewable tablet CHEW 1 TABLET BY MOUTH EVERY DAY active aspirin 81 mg chewable tablet CHEW 1 TABLET BY MOUTH EVERY DAY active aspirin 81 mg chewable tablet CHEW 1 TABLET BY MOUTH EVERY DAY active aspirin 81 mg chewable tablet CHEW 1 TABLET BY MOUTH EVERY DAY active aspirin 81 mg chewable tablet CHEW 1 TABLET BY MOUTH EVERY DAY active aspirin 81 mg chewable tablet CHEW 1 TABLET BY MOUTH EVERY DAY active aspirin 81 mg chewable tablet CHEW 1 TABLET BY MOUTH EVERY DAY active Belsomra 5 mg tablet TAKE 1 TABLET BY MOUTH AT BEDTIME/ NEEDED active Belsomra 5 mg tablet TAKE 1 TABLET BY MOUTH AT BEDTIME/ NEEDED active Belsomra 5 mg tablet TAKE 1 TABLET BY MOUTH AT BEDTIME/ NEEDED active Belsomra 5 mg tablet TAKE 1 TABLET BY MOUTH AT BEDTIME/ NEEDED active Belsomra 5 mg tablet TAKE 1 TABLET BY MOUTH AT BEDTIME/ NEEDED active Belsomra 5 mg tablet TAKE 1 TABLET BY MOUTH AT BEDTIME/ NEEDED active Belsomra 5 mg tablet TAKE 1 TABLET BY MOUTH AT BEDTIME/ NEEDED active Belsomra 5 mg tablet TAKE 1 TABLET BY MOUTH AT BEDTIME/ NEEDED active ezetimibe 10 mg-simvastatin 10 mg tablet TAKE 1 TABLET BY MOUTH DAILY active ezetimibe 10 mg-simvastatin 10 mg tablet TAKE 1 TABLET BY MOUTH DAILY active ezetimibe 10 mg-simvastatin 10 mg tablet TAKE 1 TABLET BY MOUTH DAILY active ezetimibe 10 mg-simvastatin 10 mg tablet TAKE 1 TABLET BY MOUTH DAILY active ezetimibe 10 mg-simvastatin 10 mg tablet TAKE 1 TABLET BY MOUTH DAILY active ezetimibe 10 mg-simvastatin 10 mg tablet TAKE 1 TABLET BY MOUTH DAILY active ezetimibe 10 mg-simvastatin 10 mg tablet TAKE 1 TABLET BY MOUTH DAILY active ezetimibe 10 mg-simvastatin 10 mg tablet TAKE 1 TABLET BY MOUTH DAILY active zolpidem 10 mg tablet Take as needed by oral route for 90 days. active zolpidem 10 mg tablet Take as needed by oral route for 90 days. active zolpidem 10 mg tablet Take as needed by oral route for 90 days. active zolpidem 10 mg tablet Take as needed by oral route for 90 days. active zolpidem 10 mg tablet Take as needed by oral route for 90 days. active zolpidem 10 mg tablet Take as needed by oral route for 90 days. active zolpidem 10 mg tablet Take as needed by oral route for 90 days. active zolpidem 10 mg tablet Take as needed by oral route for 90 days. active apixaban (ELIQUIS) 2.5 mg tablet Take 2.5 mg by mouth 2 (two) times a day. active apixaban (ELIQUIS) 5 MG tablet Take 5 mg by mouth 2 (two) times a day. active Ascorbic Acid (vitamin C) 1000 MG tablet Take 6,000 mg by mouth daily. active cholecalciferol (CHOLECALCIFEROL) 25 MCG (1000 UT) tablet Take 1,000 Units by mouth daily. active Cyanocobalamin (VITAMIN B-12 PO) Take 50 mg by mouth daily. active Eliquis 5 MG Eliquis 5 MG active Flaxseed, Linseed, (Flax Seed Oil) 1000 MG Cap Take 24,000 mg by mouth. active folic acid (Folate) 400 MCG tablet Take 400 mcg by mouth daily. active PATIENT OWN MEDICATION Luten 10 mg every day active Allergies Allergen Reaction Severity Comment Documented Date Source Status SULFA (SULFONAMIDE ANTIBIOTICS) Moderate Pt states he had sulfa as child and does not remember reaction.,C karely rxn 05/07/2020 [facility] active SULFA ANTIBIOTICS UNKNOWN/PATIENT AND FAMILY UNABLE TO DEFINE Pt states he had sulfa as child and does not remember reaction. 05/07/2020 CCT active METOPROLOL PALPITATIONSDIZZINESS Severe Severe dizziness 03/01/2020 [facility] active AMOXICILLIN RASH ENS_GRIF TPCT GABAPENTIN OTHER moderate severity ENS_GRIF TPCT [id number] A REDUCTASE INHIBITORS MUSCLE CRAMPS severe ENS_GRIF TPCT Problems Problem Status Onset Date Problem Type Date of Resolution Source Cardiac arrhythmia active 2022-05-27 ProblemAct E[facility]IFT[facility] T Ventricular premature beats active 2022-05-27 ProblemAct [facility] T Persistent atrial fibrillation active ProblemAct [facility] T Nonsustained ventricular tachycardia active 2023-06-07 ProblemAct E[facility] T Atrial flutter active ProblemAct ENS_ GRIFT[facility] T Nerve injury active ProblemAct ENS_GR IFTPC T Paroxysmal atrial fibrillation active 2022-05-27 ProblemAct ENS_[facility] T Arthritis active ProblemAct ENS_GRIFT PC T Left bundle branch hemiblock active 2022-05-27 ProblemAct E[facility] T Rupture of tendon active ProblemAct E NS_GRIFTPC T History of cardioversion active ProblemAct ENS_[facility] T Palpitations active 2022-05-27 ProblemAct ENS_G RIFTPC T Cerebrovascular accident active ProblemAct ENS_[facility] T Insomnia active ProblemAct ENS_GRIFT PC T Left atrial appendage absent active 2022-05-27 ProblemAct ENS_[facility]IFT[facility] T Cardiac pacemaker in situ active ProblemAct ENS_[facility] T Right bundle branch block AND left anterior fascicular block active 2022-05-27 ProblemAct ENS_[facility] T Dyspnea active ProblemAct ENS_GRIFT PC T Dyspnea active ProblemAct [facility] Pain in right ankle and joints of right foot active EncounterDiagnosisAct [facility] Nerve damage active ProblemAct [facility] Persistent atrial fibrillation active 2020-05-07 ProblemAct [facility] Insomnia active ProblemAct [facility] Ankle edema active ProblemAct [facility] Atrial flutter active 2021-02-[address] Stroke active 2018-04-25 ProblemAct [facility] Tendon rupture, nontraumatic active 2020-01-24 ProblemAct [facility] Arthritis active ProblemAct [facility] Anxiety disorder active ProblemAct EN S_CNS Paresthesias active EncounterDiagnosisAct [facility]_GT Chronic systolic heart failure active ProblemAct ENS_CNS Paroxysmal atrial fibrillation active ProblemAct ENS_CNS Encounters Encounter Type Encounter Reason Primary Diagnosis Location Date Ambulatory [facility]24 [facility] 12/03/2024 Ambulatory [facility] 12/03/2024 Ambulatory [facility] 08/31/2024 Ambulatory [facility] 07/24/2024 Ambulatory Pain in right ankle and joints of right foot Pain in right ankle and joints of right foot [facility] 07/24/2024 Ambulatory [facility] 06/29/2024 Ambulatory [facility] 12/05/2023 Ambulatory [facility] 12/03/2023 Ambulatory [facility] 06/06/2023 Ambulatory [facility] 06/06/2023 Ambulatory [facility] 11[facility]26/2022 Ambulatory [facility] 11/26/2022 Ambulatory [facility] 11/26/2022 Ambulatory [facility] 11/26/2022 Ambulatory [facility] 11/26/2022 Ambulatory [facility] 11/26/2022 Ambulatory [facility] 11/26/2022 Ambulatory [facility] 11/26/2022 Ambulatory [facility] 02/04/2022 Ambulatory [facility] 10/14/2021 Emergency Paresthesia of skin [facility] 10/12/2021 Ambulatory Unspecified atri al flutter [facility] 04/30/2021 Ambulatory Unspecified atri al flutter [facility] 03/16/2021 Ambulatory Other persistent atrial fibrillation [facility] 02/03/2021 Care Team Organization Name Specialty Phone Email Start Date End Da te [facility] PO [facility] 07/25/2024 08/23/2024 [facility] 10/15/2021 [place] Inclusive Panel 2 10/13/2021 [facility] NO PHYSICIAN Primary Care 10/12/2021 10/12/2021 [facility] ИВАН YANES Primary Care 04/30/2021 08/23/2024 [facility] ИВАН PO Primary Care 02/03/2021 04/30/2021
--- OUTSIDE RECORDS SUMMARY | 2024-12-06 13:30 | XMS_ITS | Clinical Summary ---
Author Organization [facility] Address [address] [place] [address] Phone Care Team Providers Care City Tax Auditor Name Role Phone Gerda Feldman MD Primary Care Provider [phone] Allergies Active Allergy Reactions Criticality Noted Date [...] (11/05/2021): Added automatically from request for surgery [id number] Non-traumatic tendon rupture 01/24/2020 11/05/2021 Overview (11/05/2021): [...] Date Last Done Comments Influenza Vaccine (#1) 2024 , 01/07/2020, 02/10/2019, Additional history exists Pneumococcal Vaccine: 50+ Years Completed 04/16/2019, 03/22/2018 Hepatitis B Vaccine Aged Out No longe r eligible based on patient's age to complete this topic Insurance Medicare [facility] Medicare [facility] Care Teams City Tax Auditor Relationship Specialty Start Date End Date Gerda Feldman MD [facility] MD [address] [place], [place] PCP - General Internal Medicine 10/21/21
--- OUTSIDE RECORDS SUMMARY | 2024-12-06 13:30 | XMS_ITS | Clinical Summary ---
Author Organization [facility] Address [address] [place] [id number] Phone Care Team Providers Care Ankle Patch Molder Name Role Phone Gerda Feldman MD Primary Care Provider [phone] Social History Tobacco Use Types Packs/Day Years Used Date Smoking Tobacco: Never Assessed Sex and Gender Information Value Date Recorded Sex Assigned at Male 01/31/2020 3:49 PM EDT Legal Sex Male 3:40 PM EDT Gender Identity Male 01/31/2020 3:49 PM EDT Sexual Orientation Straight 01/31/2020 3: 49 PM EDT Plan of Treatment Not on file Medical Devices Not on file [place] [id number] BLUE CROSS MEDEX SUPPLEMENT MEDICARE PART A & B [employer]ERSON MEDEX SUPPLEMENT MEDICARE PART A & B [employer] CROSS MEDEX SUPPLEMENT MEDICARE PART A & B Member [facility] Name:NiteshstephenOsman medellinmond Member ID:[id number] Relation to Subscriber:Self Name:Eliazar Quispe Subscriber ID:[id number] Payer ID:[id number] Group ID:Not on file Type:Medicare Address: [email or web address] [address] [place], [place] [id number] [employer] MEDEX SUPPLEMENT Member Subscriber Plan / [facility]ayer [facility] Name:Eliazar Quispe Relation to Subscriber:Self Name:NiteshstephenOsman medellinmond Payer ID:[id number] (NAIC) Type:Indemnity Address: [place] [address] MEDICARE PART A & B [employer] CROSS MEDEX SUPPLEMENT MEDICARE PART A & B [employer] MEDEX SUPPLEMENT MEDICARE PART A & B [employer] MEDEX SUPPLEMENT MEDICARE PART A & B [employer] MEDEX SUPPLEMENT MEDICARE PART A & B [employer] CROSS MEDEX SUPPLEMENT Care Teams Ankle Patch Molder Relationship Specialty Start Date End Date Gerda Feldman MD [address] [place] [phone] PCP - General Internal Medicine 01/31/20 Additional Source Comments The information contained in this document represents components of the legal health record. It is not the complete legal health record.[facility]
[2024-12-06 16:44] LABS: Hematocrit 36.4 % (42.0-52.0); Hemoglobin 11.4 g/dl (14.0-18.0); Mean Corpuscular HGB Conc 31.3 g/dl (31.0-36.0); Mean Corpuscular Hemoglobin 29.3 pg (27.0-33.0); Mean Corpuscular Volume 93.6 fL (80.0-98.0); NRBC Abs Auto 0.000 X10*3/uL (0.0-0.012); NRBC Pct Auto 0.0 /100WBC (0.0-0.2); Platelet Count 268 X10*3/uL (160-400); Red Blood Count 3.89 X10*6/uL (4.60-5.80); White Blood Count 6.0 X10*3/uL (4.8-10.8)
[2024-12-06 17:03] LABS: Anion Gap 12 (12-20); Blood Urea Nitrogen 32 mg/dL (9-16); Calcium 9.3 mg/dL (8.4-10.2); Carbon Dioxide 21 mmol/L (22-29); Chloride 112 mmol/L (96-108); Estimated Glomerular Filt Rate 29; Potassium 4.9 mmol/L (3.3-5.1); Sodium 140 mmol/L (135-145)
== END 2024-12-06 12:46 | disposition home or self-care (01) ==
LOC: HO.HMGCLDS 12:45
PROVIDERS: PCP Internal Medicine; Visit Provider Internal Medicine Hypertension Specialist
DX: N18.4 Chronic kidney disease, stage 4 (severe) (principal)
CPT/HCPCS: 36415; 80048; 85027

== ENCOUNTER 2024-12-13 13:58 | Outpatient (AMB) | payer MEDICARE, SELFPAY ==
--- OUTSIDE RECORDS SUMMARY | 2024-12-13 14:06 | XMS_ITS | Encounter Summary ---
Author Organization [facility] Address [address] [place] [address] Care Team Providers Care Merchandise Coordinator Name Role Phone Gerda Feldman MD Primary Care Provider Jaylen Amin MD Unavailable [phone] Robert Crockett MD Unavailable [phone] Osmel Huerta MD Unavailable [phone] Wil Deras MD Unavailable Encounter Details Date Type Department Care Team (Late st Contact Info) Description 09/05/2020 Scanned Document [address] [place] [address] Provider, Janett, [address] [place] [address] Social History Tobacco Use Types Packs/Day Years [...] on filedocumented in this encounter Care Teams Merchandise Coordinator Relationship Specialty Start Date End Date Gerda Feldman MD [address] [place] [address] Dr Youssef [address] [place] [id number] PCP - General Internal Medicine 02/05/20 Jaylen Amin MD [address] [address] Straightener And Aligner Cardiovascular Disease 02/05/20 Robert Crockett MD [address] [address] Physician Cardiac Electrophysiology 03/01/2004/29 Osmel Huerta MD [address] [place] [address] Dr Youssef [address] [place] [address] Surgery, General 09/04/20 Wil Deras MD [address] [place] [address] Cardiovascular Disease 04/30/21 documented as of this encounter
--- OUTSIDE RECORDS SUMMARY | 2024-12-13 14:07 | XMS_ITS | Clinical Summary ---
Author Organization [facility] Address [address] [place] [phone] Phone Care Team Providers Care Controller Instructor Name Role Phone Physician, No Pcp Primary [...] History Medical History Date Comments Atrial fibrillation ([facility] V24, [facility] V28) CHF (congestive heart failure) ([facility] V24, [facility] V28) CVA (cerebral vascular accident) ([facility] V24, [facility] V28) Social History Tobacco Use Types Packs/Day [...] age to complete this topic Insurance MEDICARE [facility]) Care Teams Controller Instructor Relationship Specialty Start Date End Date Physician, No Pcp PCP - General 10/12/21
--- OUTSIDE RECORDS SUMMARY | 2024-12-13 14:07 | XMS_ITS | Clinical Summary ---
Author Organization [facility] Address [address] [place] [address] Phone Care Team Providers Care Water Ski Assembler Name Role Phone Gerda Feldman MD Primary Care Provider [phone] Allergies Active Allergy Reactions Criticality Noted Date [...] (11/05/2021): Added automatically from request for surgery [id number] Non-traumatic tendon rupture 01/24/2020 11/05/2021 Overview (11/05/2021): [...] age to complete this topic Insurance Medicare [facility] Medicare [facility] Care Teams Water Ski Assembler Relationship Specialty Start Date End Date Gerda Feldman MD [facility] [place] [address] [place], [place] PCP - General Internal Medicine 10/21/21
--- OUTSIDE RECORDS SUMMARY | 2024-12-13 14:07 | XMS_ITS | Clinical Summary ---
Author Organization [facility] Address [address] [place] [address] Phone Care Team Providers Care Recruiting Administrator Name Role Phone Gerda Feldman MD Primary Care Provider [phone] Social History Tobacco Use Types Packs/Day Years [...] Insurance [place] PART A [place] [id number] BLUE CROSS MEDEX SUPPLEMENT MEDICARE PART A & B [email or web address] MEDEX SUPPLEMENT MEDICARE PART A & B [email or web address] CROSS MEDEX SUPPLEMENT MEDICARE PART A & B [email or web address] MEDEX SUPPLEMENT MEDICARE PART A & B [email or web address] CROSS MEDEX SUPPLEMENT MEDICARE PART A & B [email or web address] MEDEX SUPPLEMENT MEDICARE PART A & B [email or web address] MEDEX SUPPLEMENT MEDICARE PART A & B [email or web address] MEDEX SUPPLEMENT MEDICARE PART A & B [email or web address] CROSS MEDEX SUPPLEMENT Care Teams Recruiting Administrator Relationship Specialty Start Date End Date Gerda Feldman MD [address] [place] [phone] PCP - General Internal Medicine 01/31/20 Additional Source Comments The information contained in this document represents components of the legal health record. It is not the complete legal health record.[facility]
[2024-12-13 14:11] VITALS: BP 130/66; PULSE 76; O2SAT 95; BMI 26.1
--- NOTE | 2024-12-13 14:11 | HO.NEPHOV_ITS ---
Vital Signs 12/13/24 14:11 Height 6 ft 2 in Weight 203 lb BMI 26.1 BP 130/66 Blood Pressure Location Lt brachial Position Sitting Pulse 76 Pulse Source Pulse Oximeter Pulse Oximetry (%) 95 Oxygen Delivery Method Room Air Intake Visit Reasons: CKD/ Conf Medication Assistant Required: No Accompanied by: Self / Same As Patient Allergies gabapentin Allergy (Severe, Verified 12/13/24 14:13) Dizziness atorvastatin Allergy (Intermediate, Verified 12/13/24 14:13) Muscle cramps rosuvastatin Allergy (Intermediate, Verified 12/13/24 14:13) Muscle cramps Sulfa (Sulfonamide Antibiotics) (SULFA(SULFONAMIDE ANTIBIOTICS)) Allergy (Mild, Verified 12/13/24 14:13) RASH metoprolol Adverse Reaction (Severe, Verified 12/13/24 14:13) Chest Pain, sob, dizziness amoxicillin Adverse Reaction (Mild, Verified 12/13/24 14:13) Rash Medication List - Last Reconciled 12/13/24 by Deins Villa MD albuterol sulfate 90 mcg/actuation (ProAir HFA) 2 puffs inhalation Q4H PRN alprazolam 0.5 mg PO DAILY PRN APAP Machine/Device As directed apixaban (Eliquis) 5 mg PO BID ascorbic acid (vitamin C) 1 g PO BID aspirin 81 mg PO DAILY cholecalciferol (vitamin D3) 25 mcg PO DAILY comp.stocking,thigh,long,large As directed 20-30 mm HG, black folic acid 1 mg PO DAILY loratadine 10 mg PO DAILY turmeric mg PO HPI Comments Details: Osman is a 71-year-old man with a history of paroxysmal atrial fibrillation status post failed ablation. History of DVT/lupus anticoagulant positivity and he is on Eliquis. History of type 2 diabetes mellitus non rheumatic mitral valve disease. He has underlying CKD with a baseline creatinine somewhere around 2 mg/dL. He is a history of congestive heart failure secondary to severe MVR underwent mitral valve annuloplasty full Maze and left atrial appendage amputation with postop course complicated by mediastinal exploration and evacuation of hematoma. During this process he sustained acute kidney injury with a creatinine peaking at 3.5 mg/dL. During routine imaging he was found to have right-sided hydronephrosis. He is aware of this but no intervention was made at the time. This was back in 2021 He is here for follow-up regarding chronic kidney disease. He has noticed a thin stream during urination. No dysuria urgency increased frequency. No urgency no hesitation. At present he has no shortness of breath no nausea vomiting. No rash no edema. 12/15/23:Sono showed right hydro and was asked to come in today by my associate 01/26/24;Seen by 06/19/24 Here for follow op On 05/14/24 , underwent procedure - cystoscopy, right retrograde - right dilatation of ureteric orifice under fluoroscopy - right ureteroscopy - dilatation of right proximal ureteric stricture - right stent placement 12/13/24 The patient is a 74-year-old male presenting with chronic kidney disease management. Kidney function stable with creatinine 2.0-2.3 mg/dL; left kidney performing 81% of work. Mild anemia stable; diet includes iron-rich foods like kale. Urinary retention with decreased force, no hematuria; stent removed, follow-up with urologist planned. Weight gain of 20 pounds since hospitalization; current weight ~200 pounds, decreased appetite and activity. Increased flatulence linked to fish oil; patient discontinued use to assess symptoms. MEDICAL HISTORY: - Chronic Kidney Disease - Mild Anemia SURGICAL HISTORY: - Stent removal MEDICATIONS: - Albuterol - Apixaban - Vitamin D - Fish oil (discontinued due to increased flatulence) SOCIAL HISTORY: - Decreased activity level compared to previous years - Consumes two meals a day DIAGNOSTIC RESULTS: - Labs: Creatinine levels between 2.0 and 2.3 mg/dL - Imaging: Left kidney performing 81% of work (June) [facility] Medical History History of cardiac pacemaker Vertigo 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 Atherosclerotic cardiovascular disease Normally functioning cardiac pacemaker present Acute kidney injury Generalized anxiety disorder Osteoarthritis of knees, bilateral Obstructive sleep apnea (adult) (pediatric) DVT (deep venous thrombosis) Nasal polyp Asthma Nonrheumatic mitral valve regurgitation Cardiomyopathy Cerebral infarction due to embolism of unspecified cerebral artery PVC (premature ventricular contraction) Anxiety Allergic rhinitis Insomnia Congestive heart failure Gastroesophageal reflux disease Impaired glucose tolerance Congestive heart failure Lupus anticoagulant positive Paroxysmal atrial fibrillation Hypercholesterolemia Surgical History H/O hernia repair Ventral hernia Status post mitral valve repair History of cardiac radiofrequency ablation (~03/16/21) Status post arthroscopy of left knee History of cardioversion (~01/17/20) S/P medial meniscectomy of left knee History of arthroscopy of left knee Hx of repair of right rotator cuff History of tonsillectomy Family History Father HTN (hypertension) CVA (cerebral vascular accident) Mother Skin cancer Maternal Uncle Colon cancer Son No problems noted. Daughter No problems noted. Family/Other Breast cancer Paternal Uncle Colon cancer Social History Housing: House Are you a primary personal care aide to a significant other at home: No Do you presently have visiting nurse or other home services: No Alcohol intake: never Patient Tobacco Use Status: Former Tobacco user Tobacco use type: Cigarette Years Smoked: 12 +/- e-Cigarette/Vaping Use: Never Used Second Hand Smoke Exposure: Yes service: No Current occupational status: retired Cognitive needs: No Hearing needs: No Vision needs: No Physical Exam Vital Signs: Last Vital Signs Pulse 76 12/13/24 14:11 BP 130/66 12/13/24 14:11 Pulse Ox 95 12/13/24 14:11 Oxygen Delivery Method Room Air 12/13/24 14:11 BMI result Body Mass Index 26.1 Const General: comfortable; No acute distress Orientation/consciousness: patient oriented x3 Eyes General: appearance normal, both eyes and all related structures Visual Hannon: normal visual hannon by confrontation Neck Neck: Yes supple and Yes no JVD Resp Effort & Inspection: normal respiratory effort and respiratory effort not decreased Cardio Palpation: no palpable S3 and no palpable S4 Heart sounds: no rubs GI Inspection: Yes normal to inspection Palpation (GI): Soft to palpation Percussion: Yes normal to percussion Auscultation: normal bowel sounds General: Yes no CVA tenderness Back/Spine/Pelvis Back: no CVA tenderness Skin General skin exam: no petechiae and no purpura Neuro General: patient oriented x3 and no focal motor deficits Extrem General: No clubbing and No edema Results Reviewed Results Reviewed: June 2024 NM/NM renal flow w pharm int IMPRESSION: Small right kidney with decreased perfusion and cortical function. Post-Lasix activity cannot be extrapolated due to diminished cortical function. Minimally diminished perfusion left kidney with bulk of renal cortical uptake/function up to 81.4%. Previously noted cortical function 88.2% has slightly decreased on the present exam. There is no response to Lasix as there is a flat curve on renogram. It is similar to previous study. Nephrology Results: Hgb, (14.0-18.0) 11.4 g/dl L 12/06/24 WBC, (4.8-10.8) 6.0 X10*3/uL 12/06/24 Plt Count, (160-400) 268 X10*3/uL 12/06/24 Sodium, (135-145) 140 mmol/L 12/06/24 Potassium, (3.3-5.1) 4.9 mmol/L 12/06/24 Chloride, (96-108) 112 mmol/L H 12/06/24 Carbon Dioxide, (22-29) 21 mmol/L L 12/06/24 BUN, (9-16) 32 mg/dL H 12/06/24 Creatinine, (0.5-1.4) 2.23 mg/dL H 12/06/24 Calcium, (8.4-10.2) 9.3 mg/dL 12/06/24 Urine Protein, (Neg-Trace) Trace mg/dL 09/28/24 Renal US 12/01/23 Assessment & Plan Assessment & Plan (1) Hydronephrosis: Comment: 05/14/24 PreOperative Diagnosis: Right hydronephrosis Post Operative Diagnosis: Right proximal ureteric stricture with hydronephrosis Procedure: - cystoscopy, right retrograde - right dilatation of ureteric orifice under fluoroscopy - right ureteroscopy - dilatation of right proximal ureteric stricture - right stent placement Code(s): N13.30 - Unspecified hydronephrosis Category: Medical Qualifiers: Hydronephrosis type: unspecified Qualified Code(s): N13.30 - Unspecified hydronephrosis Plan: Await Nuclear scan (2) CKD (chronic kidney disease): Code(s): N18.9 - Chronic kidney disease, unspecified Category: Medical Plan Osman has chronic kidney disease with a baseline creatinine of around 2.0 mg/dL. He has sustained acute kidney injury 2 years ago during hospitalization which resolved. The meantime continue to avoid nephrotoxic agents. Optimize blood pressure Keep intake more than output. Stay on low-potassium diet in view of mild hyperkalemia. Increase PO fluid intake Mild stable anemia. Erythropoietin deficiency is a possibility. No indication for erythropoietin replacement therapy at this time. Shall monitor Orders: Orders Basic Metabolic Panel 6 Months N18.9 - Chronic kidney disease, unspecified Complete Blood Count no Diff 6 Months N18.9 - Chronic kidney disease, unspecified Coding Level of Care Code Est Pt Level 4 (47052) Diagnoses Hydronephrosis, unspecified hydronephrosis type N13.30 Hydronephrosis type: unspecified CKD (chronic kidney disease) N18.9
== END 2024-12-13 14:30 | disposition home or self-care (01) ==
LOC: HO.HKA 13:58
PROVIDERS: PCP Internal Medicine; Visit Provider Internal Medicine Hypertension Specialist
DX: N13.30 Unspecified hydronephrosis (principal); N18.9 Chronic kidney disease, unspecified
CPT/HCPCS: 99214

== ENCOUNTER → 2024-12-13 13:58 | Outpatient (BNVA) | payer MEDICARE, SELFPAY | PROVIDERS: PCP Internal Medicine; Visit Provider Internal Medicine Hypertension Specialist | DX: N13.30 Unspecified hydronephrosis (principal); N18.9 Chronic kidney disease, unspecified | CPT/HCPCS: 99212 ==

== ENCOUNTER 2025-03-05 14:01 | Outpatient (AMB) | payer MEDICARE, SELFPAY ==
[2025-03-05 14:38] VITALS: BP 138/70; PULSE 87; BMI 26.1
--- NOTE | 2025-03-05 14:38 | A.OFFVIS_ITS ---
Vital Signs 03/05/25 14:38 Height 6 ft 2 in Weight 203 lb BMI 26.1 BP 138/70 Blood Pressure Location Lt brachial Position Sitting Pulse 87 Pulse Source Pulse Oximeter Intake Visit Reasons: f/up Allergies gabapentin Allergy (Severe, Verified 12/13/24 14:13) Dizziness atorvastatin Allergy (Intermediate, Verified 12/13/24 14:13) Muscle cramps rosuvastatin Allergy (Intermediate, Verified 12/13/24 14:13) Muscle cramps Sulfa (Sulfonamide Antibiotics) (SULFA(SULFONAMIDE ANTIBIOTICS)) Allergy (Mild, Verified 12/13/24 14:13) RASH metoprolol Adverse Reaction (Severe, Verified 12/13/24 14:13) Chest Pain, sob, dizziness amoxicillin Adverse Reaction (Mild, Verified 12/13/24 14:13) Rash Medication List - Last Reconciled 03/05/25 by Jaylen Amin MD albuterol sulfate 90 mcg/actuation (ProAir HFA) 2 puffs inhalation Q4H PRN alprazolam 0.5 mg PO DAILY PRN APAP Machine/Device As directed apixaban (Eliquis) 5 mg PO BID ascorbic acid (vitamin C) 1 g PO BID aspirin 81 mg PO DAILY cholecalciferol (vitamin D3) 25 mcg PO DAILY comp.stocking,thigh,long,large As directed 20-30 mm HG, black folic acid 1 mg PO DAILY loratadine 10 mg PO DAILY turmeric mg PO HPI Comments Details: Eliazar returns for follow-up. He was over long-term patient but he decided to move to [facility] to consolidate his care. However, he has decided to return back to [place] and reestablish care. Many cardiac issues including mitral regurgitation, atrial fibrillation, atypical flutter, PVCs among others. In the past, he underwent atrial fibrillation, atypical flutter ablation as well as PVC ablation. In 2021, diagnosed with severe mitral regurgitation. Admitted to [facility] with acute heart failure that led to cardiac catheterization and then mitral valve surgery. Also underwent pacemaker implantation. Sometimes he can get short of breath with activity but most of the time he is fine. No other concerns like angina. 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 Atherosclerotic cardiovascular disease Normally functioning cardiac pacemaker present Acute kidney injury Generalized anxiety disorder Osteoarthritis of knees, bilateral Obstructive sleep apnea (adult) (pediatric) DVT (deep venous thrombosis) Nasal polyp Asthma Nonrheumatic mitral valve regurgitation Cardiomyopathy Cerebral infarction due to embolism of unspecified cerebral artery PVC (premature ventricular contraction) Anxiety Allergic rhinitis Insomnia Congestive heart failure Gastroesophageal reflux disease Impaired glucose tolerance Congestive heart failure Lupus anticoagulant positive Paroxysmal atrial fibrillation Hypercholesterolemia Surgical History H/O hernia repair Ventral hernia Status post mitral valve repair History of cardiac radiofrequency ablation (~03/16/21) Status post arthroscopy of left knee History of cardioversion (~01/17/20) S/P medial meniscectomy of left knee History of arthroscopy of left knee Hx of repair of right rotator cuff History of tonsillectomy Family History Father HTN (hypertension) CVA (cerebral vascular accident) Mother Skin cancer Maternal Uncle Colon cancer Son No problems noted. Daughter No problems noted. Family/Other Breast cancer Paternal Uncle Colon cancer Social History Housing: House Are you a primary account executive healthcare to a significant other at home: No Do you presently have visiting nurse or other home services: No Alcohol intake: never Patient Tobacco Use Status: Former Tobacco user Tobacco use type: Cigarette Years Smoked: 12 +/- e-Cigarette/Vaping Use: Never Used Second Hand Smoke Exposure: Yes service: No Current occupational status: retired Cognitive needs: No Hearing needs: No Vision needs: No Review of Systems Const Denies weakness ENT Denies dizziness Card Denies chest pain, Denies chest pain with activity, Denies syncope, Denies rapid heart rate, Denies pedal edema, Denies edema, Denies leg edema, Denies lightheadedness, Denies palpitations, Denies dyspnea, Denies dyspnea on exertion and Denies orthopnea Resp Denies cough, Denies dyspnea and Denies dyspnea on exertion GI Denies hematochezia and Denies change in stool character Musc Denies abnormal gait, Denies muscle cramps, Denies muscle weakness, Denies numbness, Denies radiating pain into limb and Denies tingling Neuro Denies abnormal gait, Denies dizziness, Denies syncope, Denies numbness, Denies tingling and Denies weakness Endo Denies palpitations Physical Exam Vital Signs: Last Vital Signs Pulse 87 03/05/25 14:38 BP 138/70 03/05/25 14:38 BMI result Body Mass Index 26.1 Const General: comfortable and no acute distress Orientation/consciousness: patient oriented x3 HEENT Other: Unremarkable Head: Yes normal to inspection Neck Neck: Yes normal visual inspection Chest Chest palpation & inspection: normal inspection of the chest Resp Auscultation: clear to auscultation bilaterally Cardio Palpation: normal PMI Heart sounds: S1 normal heart sound present, S2 normal heart sound present, no gallops, no murmurs and no rubs GI Palpation (GI): Soft to palpation Back/Spine/Pelvis Other: unremarkable Skin General skin exam: no rashes or lesions noted Neuro General: patient oriented x3 Extrem General: Yes normal to inspection Psych Mental Status: mental status grossly normal Assessment & Plan Assessment & Plan (1) Status post mitral valve repair: Code(s): Z98.890 - Other specified postprocedural states Category: Surgical Plan: Status post mitral valve annuloplasty. In the last CESILIA, [id number] regurgitation. Can be followed periodically. Infective endocarditis prophy laxis per protocol. (2) Cardiomyopathy: Code(s): I42.9 - Cardiomyopathy, unspecified Category: Medical Qualifiers: Cardiomyopathy type: unspecified Qualified Code(s): I42.9 - Cardiomyopathy, unspecified Plan: He has had variable EFs at different times. Most recent in the normal range. Clinically, no congestive heart failure. Used to be on Coreg but not anymore because of low blood pressure. (3) Atherosclerotic cardiovascular disease: Code(s): I25.10 - Atherosclerotic heart disease of grindstone coronary artery without angina pectoris Category: Medical Plan: Cardiac catheterization - 65% stenosis in the proximal part of 1st obtuse marginal. Otherwise unremarkable. He has a history of statin intolerance. He was on simvastatin which he was tolerating but uncertain safety with low GFR and then discontinued. He was on Zetia but not in his list anymore. LDL levels are in the 80s. (4) Paroxysmal atrial fibrillation: Code(s): I48.0 - Paroxysmal atrial fibrillation Category: Medical Plan: Prior history of atrial fibrillation as well as atypical flutter and has undergone ablation for the same. He is also status post Maze procedure. Left atrial appendage amputation. History of intolerance to several antiarrhythmics. Off anticoagulation per his EP. CESILIA from last year showed a remnant of left atrial appendage, status post excision. However, no thrombus noted. He is back on Eliquis. (5) PVC (premature ventricular contraction): Code(s): I49.3 - Ventricular premature depolarization Category: Medical Plan: Status post ablation. In the last Holter from 2021, PVC burden was only 0.6%. (6) Normally functioning cardiac pacemaker present: Code(s): Z95.0 - Presence of cardiac pacemaker Category: Medical Plan: His pacemaker is followed up with EP in [place]. (7) CKD (chronic kidney disease): Code(s): N18.9 - Chronic kidney disease, unspecified Category: Medical Plan: Most recent creatinine is 2.23. Active nephrology follow-up. Orders: Orders CA echo transthoracic complete Today Z98.890 - Other specified postprocedural states Coding Level of Care Code Est Pt Level 4 (27077) Complex EM visit Add On G2211 Diagnoses Status post mitral valve repair Z98.890 Cardiomyopathy, unspecified type I42.9 Cardiomyopathy type: unspecified Atherosclerotic cardiovascular disease I25.10 Paroxysmal atrial fibrillation I48.0 PVC (premature ventricular contraction) I49.3 Normally functioning cardiac pacemaker present Z95.0 CKD (chronic kidney disease) N18.9
--- OUTSIDE RECORDS SUMMARY | 2025-03-05 15:42 | XMS_ITS | Patient Health Record ---
Author Organization [facility] [place] Address [address] [facility] [address] [place] [address] Care Team Providers Care Psych Coordinator Name Role Phone Chase Ahn M.D Primary Care Provider Unavaila ble Allergies No Known Allergies Reason For Referral No Information Medications Medication SIG (Take, Route, Fr equency, Duration) Notes Start Date End Date Status Aspirin 81 MG 1 tablet Orally Once a day; Duration: 30 day(s) 10/14/2021 Active busPIRone HCl 10 MG 1 tablet Orally Twic e a day; Duration: 30 days 10/14/2021 Active Crestor 40 MG 1 tablet Orally Once a day; Duration: 30 day(s) 10/14/2021 Active Eliquis 5 MG 1 tablet Orally twice a day Active Carvedilol 3.125 MG 1 tablet with food O rally Twice a day; Duration: 30 day(s) Active Amiodarone HCl 200 MG 2 tablet Orally twice a day Active Social History Tobacco Use: Social History Observation Description Date Details (start date - stop date) Former Smoker NA - NA Smoking: Question Answer Notes Are you a: former smoker How long has it been since you last smoked? > 10 years Problems Problem Type SNOMED Code ICD Code Onset Dates Problem Status W/U Status Risk Notes Problem Anxiety disorder (920692755) Anxiety disorder, unspecified (F41.9) Active confirmed 10/14/21: Patient has undergone some life stressors due to his mother passing and his daughter going through rehab. Patient is accepting of the fact that he may be experiencing these symptoms because of his anxiety. Problem Paroxysmal atrial fibrillation (883124950) Paroxysmal atrial fibrillation (I48.0) Active confirmed 10/14/21: Patient has been taking amiodarone for his Afib and will undergo cardioversion as recommeneded by his pet ambassador Problem Chronic systolic heart failure (013310754) Chronic systolic (congestive) heart failure (I50.22) Active confirmed 10/14/21: Stable not on any current medication Plan Of Treatment No Information Insurance Providers Payer Name Payer Address Payer Phone Subscriber Number Group Number Insured Name Patient Relationship to Insured Coverage Start Date Coverage End Date MEDICARE Part B- [facility] [address] [place] [phone] [id number] Eliazar Eldridge Self - patient is the insured [facility] [address] [address] [place] [address] [id number] Eliazar Eldridge Self - patient is the insured Medical (General) History Medical History History ICD Code Atrial Fibrillation Congestive Heart Failure Surgical History Surgery Date(Month/Year) Hernia repair 2020 Ablation for AFib 2021 Hospitalization History Reason Date(Month/Year) Rule out stroke 10/14
--- OUTSIDE RECORDS SUMMARY | 2025-03-05 15:42 | XMS_ITS | Encounter Summary ---
Author Organization [facility] Address [address] [place] [address] Care Team Providers Care Grant Coordinator Name Role Phone Gerda Feldman MD Primary Care Provider Jaylen Amin MD Unavailable [phone] Robert Crockett MD Unavailable [phone] Osmel Huerta MD Unavailable [phone] Wil Deras MD Unavailable Encounter Details Date Type Department Care Team (Late st Contact Info) Description 02/15/2020 Scanned Document [address] [place] [address] Provider, Janett, [address] [place] [address] Social History Tobacco Use Types Packs/Day Years [...] documented as of this encounter Care Teams Grant Coordinator Relationship Specialty Start Date End Date Gerda Feldman MD [address] [place] [address] Dr Youssef [address] [place] [id number] PCP - General Internal Medicine 02/05/20 Jaylen Amin MD [address] [address] Superintendent Compressor Stations Cardiovascular Disease 02/05/20 Robert Crockett MD [address] [address] Physician Cardiac Electrophysiology 03/01/2004/29 Osmel Huerta MD [address] [place] [address] Dr Youssef [address] [place] [address] Surgery, General 09/04/20 Wil Deras MD [address] [place] [address] Cardiovascular Disease 04/30/21 documented as of this encounter
--- OUTSIDE RECORDS SUMMARY | 2025-03-05 15:42 | XMS_ITS | Encounter Summary ---
Author Organization [facility] Address [address] [place] [address] Care Team Providers Care Printing Gray Cloth Tender Name Role Phone Gerda Feldman MD Primary Care Provider Jaylen Amin MD Unavailable Robert Crockett MD Unavailable [phone] Osmel Huerta MD Unavailable [phone] Wil Deras MD Unavailable Encounter Details Date Type Department Care Team (Late st Contact Info) Description 02/18/2020 Scanned Document [address] [place] [address] Provider, Janett, [address] [place] [address] Social History Tobacco Use Types Packs/Day Years [...] documented as of this encounter Care Teams Printing Gray Cloth Tender Relationship Specialty Start Date End Date Gerda Feldman MD [address] [place] [address] Dr Youssef [address] [place] [id number] PCP - General Internal Medicine 02/05/20 Jaylen Amin MD [address] [address] Underwear Finisher Cardiovascular Disease 02/05/20 Robert Crockett MD [address] [address] Physician Cardiac Electrophysiology 03/01/2004/29 Osmel Huerta MD [address] [place] [address] Dr Youssef [address] [place] [address] Surgery, General 09/04/20 Wil Deras MD [address] [place] [address] Cardiovascular Disease 04/30/21 documented as of this encounter
--- OUTSIDE RECORDS SUMMARY | 2025-03-05 15:42 | XMS_ITS | Encounter Summary ---
Author Organization Formerly [facility] Address [address] [place] [address] Care Team Providers Care It Service Manager Name Role Phone Gerda Feldman MD Primary Care Provider Jaylen Amin MD Unavailable Robert Crockett MD Unavailable [phone] Osmel Huerta MD Unavailable [phone] Wil Deras MD Unavailable Encounter Details Date Type Department Care Team (Late st Contact Info) Description 09/05/2020 Scanned Document [address] [place] [address] Provider, Janett, [address] [place] [address] Social History Tobacco Use Types Packs/Day Years [...] on filedocumented in this encounter Care Teams It Service Manager Relationship Specialty Start Date End Date Gerda Feldman MD [address] [place] [address] Dr Youssef [address] [place] [address] PCP - General Internal Medicine 02/05/20 Jaylen Amin MD [address] [address] Veneer Repairer Machine Cardiovascular Disease 02/05/20 Robert Crockett MD [address] [address] Physician Cardiac Electrophysiology 03/01/2004/29 Osmel Huerta MD [address] [place] [address] Dr Youssef [address] [place] [address] Surgery, General 09/04/20 Wil Deras MD [address] [place] [address] Cardiovascular Disease 04/30/21 documented as of this encounter
--- OUTSIDE RECORDS SUMMARY | 2025-03-05 15:42 | XMS_ITS | Encounter Summary ---
Author Organization Formerly [facility] Address [address] [place] [address] Care Team Providers Care Heel Sewer Name Role Phone Gerda Feldman MD Primary Care Provider [phone] Jaylen Amin MD Unavailable Osmel Huerta MD Unavailable [phone] Wil Deras MD Unavailable Encounter Details Date Type Department Care Team (Late st Contact Info) Description 07/21/2021 Scanned Document [address] [address] Provider, MD Janett [address] [place] [address] Social History Tobacco Use Types Packs/Day Years [...] on filedocumented in this encounter Care Teams Heel Sewer Relationship Specialty Start Date End Date Gerda Feldman MD [address] [place] [address] Dr Youssef [address] [place] [address] PCP - General Internal Medicine 02/05/20 Jaylen Amin MD [address] [place] [address] [address] [place] [address] Spa Manager Cardiovascular Disease 02/05/20 Osmel Huerta MD [address] [place] [address] Dr Youssef [address] [place] [address] Surgery, General 09/04/20 Wil Deras MD [address] [place] [address] Cardiovascular Disease 04/30/21 documented as of this encounter
--- OUTSIDE RECORDS SUMMARY | 2025-03-05 15:42 | XMS_ITS | Data Portability ---
Author Organization [facility] - Misael ValdesBehalfrishi s, [address] Address [address] [place] [address] Assessment No assessment recorded. Plan of Treatment Reminders Order Date Submit Date Provider Last Modified By Organization Details Last Modified Time Details Appointments None recorded. Lab None recorded. Referral otolaryngol ogist referral - feeling dizzy and vertigo especially waking upm in morning. need further evaluation and treatment. 2022 023 [email or web address] 26 Pratik Rivera MD, 100 [facility], [facility], [place], [address], 3 12:51:32 Procedures None recorded. Surgeries None recorded. Imaging None recorded. Medication Orders meclizine 25 mg tablet 2022 023 [id number], [address], [place], [id number], 3 19:15:43 Patient TargetsNo targets recorded. Patient Instructions Encounter Date Encounter Id Patient Instructions Last Modified By Organization Details Last Modified Time 06/06/2022 [id number] dizziness: care instructions Not available 06/06/2022 19:14:50 Please drink plenty of fluids. See your doctor or go to the neared emergency department right away if you have vertigo and: -Have a new or severe headache -Have a fever higher than 100.4 F (38 C) -Start to see double or have trouble [...] Not available 06/06/2022 19:14:49 Reason for Referral Business Support Manager Referral fo r Benign paroxysmal positional [...] Address Organization Details Recorded Time Essential hypertension 37009370 Active 2022 IRIS COUVERTIE R null, [place] - [facility] 3 18:23:37 Acute kidney injury 51185854 Active 2022 IRIS COUVERTIE R null, [place] - [facility] 3 18:26:17 Insomnia 300890322 Active 2022 IRIS COUVERTIE R null, PA [...] Name and Address Organization Details Recorded Time 521968 Substance with sulfonami de structure and antibacte rial mechanism of action (substanc e) medicatio n Not available Not available Not available 06/06/2022 80103 8003 SNOMED IRIS COUVERTIE R null, PA - [facility] 3 18:21:58 610919 gabapenti n medicatio n dizziness Not available Not available 06/06/2022 02111 RxNorm IRIS COUVERTIE R null, [place] - [facility] 3 18:22:14 559801 rosuvasta tin medicatio n edema Not available Not available 06/06/2022 90400 2 RxNorm KRISHNA Muñoz bennett, [place] - [...] Heart rate Respiratory rate Body temperature Systolic And Diastolic Provider Name and Address Organization Details Last Updated DateTime 3 187.96 cm 23.8 kg/m2 94331.5 9 g 100 % 100 % 66 /min 18 /min 97.8 [degF] 139/73 mm[Hg] KRISHNA Muñoz PA - [facility] 3 18:29:41 Social History Question Answer Notes LastModified by Organizat ion Details LastModified Time Tobacco Smoking Status Former Smoker KRISHNA guajardo [place] - [facility] 06/06/2022 18:29:20 What Is Your Water Source? City Information not available 06/06/2022 What Is Your Heat Source? Gas Information not available 06/06/2022 Have You Had Direct Contact, Or Contact During Intimacy, With Monkeypox Rash, Scabs, Or Body Fluids From A Person With Monkeypox? No Information not available 06/06/2022 Have You Recently Traveled Abroad? No Information not available 06/06/2022 Sex: Unknown Functional Status Question Answer Note LastModified by Organizat ion Details LastModified Time Do you use any illicit or recreational drugs? No Information not available 06/06/2022 Do you or have you ever used any other forms of tobacco or nicotine? No Information not available 06/06/2022 What is your level of alcohol consumption? None Information not available 06/06/2022 Mental Status None recorded. Family History Nothing Reported. Medical History No medical history recorded. Past Encounters Encounter ID Performer Location Encounter Start Date Encounter Closed Date Diagnosis/Indication Diagnosis SNOMED-CT Code Diagnosis ICD10 Code Diagnosis IMO Codes Diagnosis Note [id number] [address] [place] [address] 08/09/2016 14:01:54 08/09/2016 14:52:09 [id number] [address] [place] [address] 10/08/2019 14:19:37 10/08/2019 15:46:07 [id number] [address] [place] [address] 06/14/2020 09:23:40 06/14/2020 09:53:11 [id number] [address] [place] [address] 12/31/2018 10:08:17 12/31/2018 10:53:03 [id number] [address] [place] [address] 06/08/2016 13:08:05 06/08/2016 14:31:43 [id number] [address] [place] [address] 01/02/2020 17:09:44 01/02/2020 17:43:56 [id number] [address] [place] [address] 12/18/2019 15:16:32 12/18/2019 16:26:12 [id number] [address] [place] [address] 02/19/2016 13:00:02 02/19/2016 13:30:00 [id number] [address] [place] [address] 02/13/2016 15:03:43 02/13/2016 15:28:04 [id number] [address] [place] [address] 12/08/2017 08:46:06 12/08/2017 09:50:44 [id number] [address] [place] [address] 03/16/2020 15:48:34 03/16/2020 18:27:17 [id number] [address] [place] [address] 04/30/2020 13:25:07 04/30/2020 18:52:16 [id number] [facility] JAIMES [address] [place] [address] 06/06/2022 15:33:14 07/27/2022 19:27:19 Left without being seen [id number] 9102 Z53.21 [id number] Leroy Crandall [place] [address] [place] [address] 06/06/2022 17:13:56 06/06/2022 19:17:57 Benign paroxysmal positional vertigo 939387215 H81.10 Health Concerns Section Related Observation LastModified by Organization Detai ls LastModified Time None Recorded Concern Status LastModified by Organization Details LastModified Time None Recorded Advance Directives Directive None Recorded Payers Insurance Date Sequence Insurance Name Policy Number Policy Shelby Covered Member ID Shelby Member ID Guarantor Name 06/06/2022 1 [place] [employer] Eliazar Quispe [id number] Eliazar Quispe 06/06/2022 2 [place] [id number] Eliazar Quispe [id number] Eliazar Quispe Notes Date Note Type Note Provider Name and Address Organization Details Recorded Time 06/06/2022 text/html CongestionReport ed by Patientc/o vertigo after trying to get up this morning from his bed. got worried. also c/o nasal congestion with post nasal drip x 3 days. denies nay fever or fever with chills. no SOB or respiratory distress. Leroy Crandall NP [address] [place], [address], [place] - [facility] 06/06/2022 19:16:09
--- OUTSIDE RECORDS SUMMARY | 2025-03-05 15:42 | XMS_ITS | Encounter Summary ---
Author Organization [facility] Address [address] [place] [address] Care Team Providers Care Corporate Strategy Intern Name Role Phone Gerda Feldman MD Primary Care Provider [phone] Jaylen Amin MD Unavailable Robert Crockett MD Unavailable [phone] Osmel Huerta MD Unavailable [phone] Wil Deras MD Unavailable Encounter Details Date Type Department Care Team (Late st Contact Info) Description 05/06/2020 Prep for Surgery [facility] Heart & Vascular Fossil Wolsey - Electrophysiology [address] [place] [address] [place] [address] Sophie Gtz, TRANSITIONS MANAGER RN [address] [address] Social History Tobacco Use Types Packs/Day Years [...] AM EST documented as of this encounter Functional Status * Level of Risk per Screen Answer Date of Assessment Author Low Risk 05/07/2020 7:24 AM EST [place], Do muñoz RN documented as of this encounter Plan of [...] Date End Date Gerda Feldman MD [address] [place] [address] Dr Youssef [address] [place] [address] [place] [address] PCP - General Internal Medicine 02/05/20 Jaylen Amin MD [address] [address] Crotch Piece Baster Cardiovascular Disease 02/05/20 Robert Crockett MD [address] [address] Physician Cardiac Electrophysiology 03/01/2004/29 Osmel Huerta MD [address] [place] [address] Dr Youssef [address] [place] [address] [place] [address] Surgery, General 09/04/20 Wil Deras MD [address] [place] [address] Cardiovascular Disease 04/30/21 documented as of this encounter
--- OUTSIDE RECORDS SUMMARY | 2025-03-05 15:42 | XMS_ITS | Clinical Summary ---
Author Organization [facility] Address [address] [place] [address] Phone Care Team Providers Care Fur Blower Operator Name Role Phone Gerda Feldman MD Primary Care Provider [phone] Social History Tobacco Use Types Packs/Day Years [...] [place] [id number] [employer] MEDEX SUPPLEMENT MEDICARE PART A & B [employer] MEDEX SUPPLEMENT MEDICARE PART A & B [employer] MEDEX SUPPLEMENT MEDICARE PART A & B [employer] MEDEX SUPPLEMENT MEDICARE PART A & B [employer] MEDEX SUPPLEMENT MEDICARE PART A & B [employer] MEDEX SUPPLEMENT MEDICARE PART A & B [employer] MEDEX SUPPLEMENT MEDICARE PART A & B [employer] MEDEX SUPPLEMENT MEDICARE PART A & B [employer] MEDEX SUPPLEMENT Care Teams Fur Blower Operator Relationship Specialty Start Date End Date Gerda Feldman MD [address] [place] [address] PCP - General Internal Medicine 01/31/20 Additional Source Comments The information contained in this document represents components of the legal health record. It is not the complete legal health record.[facility]
--- OUTSIDE RECORDS SUMMARY | 2025-03-05 15:42 | XMS_ITS | Encounter Summary ---
Author Organization [facility] Address [address] [place] [address] Phone Care Team Providers Care Solar Energy Specialist Name Role Phone Gerda Feldman MD Primary Care Provider [phone] Reason for Referral * Consultation (Within 1 month) - Closed Specialty Diagnoses / Procedures Referred By Tyler childress Referred To Contact [facility] Cardiovascular Medicine [address] [place] [address], 5th Floor, [address] [place] [address] Phone: tel: fax: [facility] CARD [id number] Referral ID Status Reason Start Date Expiration Date Visits Re quested Visits Authorized [id number] Closed 02/01/2020 01/31/2021 1 1 Encounter Details Date Type Department Care Team (Late st Contact Info) Description 02/01/2020 Transcribe Orders [facility] Cardiovascular Medicine [address] [place] [address], [address] Floor, [address] [place] [address] Unknown, Unknown, Social History Tobacco Use Types Packs/Day Years Used Date Smoking Tobacco: Never Assessed Sex and Gender Information Value Date Recorded Sex Assigned at Male 01/31/2020 3:49 PM EDT Legal Sex Male 3:40 PM EDT Gender Identity Male 01/31/2020 3:49 PM EDT Sexual Orientation Straight 01/31/2020 3: 49 PM EDT documented as of this encounter Plan of Treatment Scheduled Referrals Name Type Priority Associated Diagnoses Order Schedule Ambulatory referral to [facility] Cardiology Outpatient Referral Routine Ordered: 02/01/2020 documented as of this encounter Visit Diagnoses Not on filedocumented in this encounter Care Teams Solar Energy Specialist Relationship Specialty Start Date End Date Gerda Feldman MD [address] [place] [address] [place] [address] PCP - General Internal Medicine 01/31/20 documented as of this encounter Additional Source Comments The information contained in this document represents components of the legal health record. It is not the complete legal health record.[facility]
--- OUTSIDE RECORDS SUMMARY | 2025-03-05 15:42 | XMS_ITS | Clinical Summary ---
Author Organization [facility] Address [address] [place] [address] Phone Care Team Providers Care Balloon Pilot Name Role Phone Physician, No Pcp Primary [...] History Medical History Date Comments Atrial fibrillation ([facility] V24, [facility] V28) CHF (congestive heart failure) ([facility] V24, [facility] V28) CVA (cerebral vascular accident) ([facility] V24, [facility] V28) Social History Tobacco Use [...] nts (1 - 1-dose 75+ series) 2023 Depression Screening 04/25/2024 COVID-19 Vaccine ( - 2024-2 6 season) 2024 Influenza Vaccine (#1) 2024 HIB Vaccines Aged [...] age to complete this topic Insurance MEDICARE [facility]) Care Teams Balloon Pilot Relationship Specialty Start Date End Date Physician, No Pcp PCP - General 10/12/21
--- OUTSIDE RECORDS SUMMARY | 2025-03-05 15:43 | XMS_ITS | Encounter Summary ---
Author Organization [facility] Address [address] [place] [address] Care Team Providers Care Geophysical Support Specialist Name Role Phone Gerda Feldman MD Primary Care Provider Jaylen Amin MD Unavailable Robert Crockett MD Unavailable [phone] Osmel Huerta MD Unavailable [phone] Wil Deras MD Unavailable Encounter Details Date Type Department Care Team (Late st Contact Info) Description 05/22/2020 Scanned Document [address] [place] [address] Provider, Janett, [address] [place] [address] Social History Tobacco Use Types Packs/Day Years [...] on filedocumented in this encounter Care Teams Geophysical Support Specialist Relationship Specialty Start Date End Date Gerda Feldman MD [address] [place] [address] [address] PCP - General Internal Medicine 02/05/20 Jaylen Amin MD [address] [address] Food Production Manager Cardiovascular Disease 02/05/20 Robert Crockett MD [address] [address] Physician Cardiac Electrophysiology 03/01/2004/29 Osmel Huerta MD [address] [place] [address] Dr Youssef [address] [place] [address] Surgery, General 09/04/20 Wil Deras MD [address] [place] [address] Cardiovascular Disease 04/30/21 documented as of this encounter
--- OUTSIDE RECORDS SUMMARY | 2025-03-05 15:43 | XMS_ITS | Encounter Summary ---
Author Organization [facility] Address [address] [place] [address] Care Team Providers Care Nursing Staffing Coordinator Name Role Phone Gerda Feldman MD Primary Care Provider Jaylen Amin MD Unavailable Robert Crockett MD Unavailable [phone] Osmel Huerta MD Unavailable [phone] Wil Deras MD Unavailable Encounter Details Date Type Department Care Team (Late st Contact Info) Description 02/15/2020 Scanned Document [address] [place] [address] Provider, Janett, [address] [place] [address] Social History Tobacco Use Types Packs/Day Years [...] documented as of this encounter Care Teams Nursing Staffing Coordinator Relationship Specialty Start Date End Date Gerda Feldman MD [address] [place] [address] Dr Youssef [address] [place] [address] PCP - General Internal Medicine 02/05/20 Jaylen Amin MD [address] [address] Digital Forensic Examiner Cardiovascular Disease 02/05/20 Robert Crockett MD [address] [address] Physician Cardiac Electrophysiology 03/01/2004/29 Osmel Huerta MD [address] [place] [address] Dr Youssef [address] [place] [address] Surgery, General 09/04/20 Wil Deras MD [address] [place] [address] Cardiovascular Disease 04/30/21 documented as of this encounter
--- OUTSIDE RECORDS SUMMARY | 2025-03-05 15:43 | XMS_ITS | Encounter Summary ---
Author Organization [facility] Address [address] [place] [address] Care Team Providers Care Event Services Manager Name Role Phone Gerda Feldman MD Primary Care Provider Jaylen Amin MD Unavailable Robert Crockett MD Unavailable [phone] Osmel Huerta MD Unavailable [phone] Wil Deras MD Unavailable Encounter Details Date Type Department Care Team (Late st Contact Info) Description 02/15/2020 Abstract [facility] [address] [place] [address] [address] Social History Tobacco Use Types Packs/Day Years [...] documented as of this encounter Care Teams Event Services Manager Relationship Specialty Start Date End Date Gerda Feldman MD [address] [place] [address] Dr Youssef [address] [place] [address] PCP - General Internal Medicine 02/05/20 Jaylen Amin MD [address] [address] Supervisor Roving Department Cardiovascular Disease 02/05/20 Robert Crockett MD [address] [address] Physician Cardiac Electrophysiology 03/01/2004/29 Osmel Huerta MD [address] [place] [address] Dr Youssef [address] [place] [address] Surgery, General 09/04/20 Wil Deras MD [address] [place] [address] Cardiovascular Disease 04/30/21 documented as of this encounter
--- OUTSIDE RECORDS SUMMARY | 2025-03-05 15:43 | XMS_ITS | Encounter Summary ---
Author Organization [facility] Address [address] [place] [address] Care Team Providers Care Medical Record Coder Name Role Phone Gerda Feldman MD Primary Care Provider Jaylen Amin MD Unavailable Robert Crockett MD Unavailable [phone] Osmel Huerta MD Unavailable Wil Deras MD Unavailable Encounter Details Date Type Department Care Team (Late st Contact Info) Description 02/21/2020 Scanned Document [address] [place] [address] Provider, Janett, [address] [place] [address] Social History Tobacco Use Types Packs/Day Years [...] documented as of this encounter Care Teams Medical Record Coder Relationship Specialty Start Date End Date Gerda Feldman MD [address] [place] [address] Dr Youssef [address] [place] [address] PCP - General Internal Medicine 02/05/20 Jaylen Amin MD [address] [address] Production Artist Cardiovascular Disease 02/05/20 Robert Crockett MD [address] [address] Physician Cardiac Electrophysiology 03/01/2004/29 Osmel Huerta MD [address] [place] [address] Dr Youssef [address] [place] [address] Surgery, General 09/04/20 Wil Deras MD [address] [place] [address] Cardiovascular Disease 04/30/21 documented as of this encounter
--- OUTSIDE RECORDS SUMMARY | 2025-03-05 15:43 | XMS_ITS | Clinical Summary ---
Author Organization [facility] Address [address] [place] [address] Care Team Providers Care Head Bone Grinder Name Role Phone Gerda Feldman MD Primary Care Provider Jaylen Amin MD Unavailable Osmel Huerta MD Unavailable Wil Deras MD Unavailable Allergies Active Allergy [...] Take 400 mcg by mouth daily. Active [place]-3 Fatty Acids (FISH OIL PO) Take by mouth daily. Active Active Problems Problem Noted Date Diagnosed Date Atrial flutter 02/03/2021 Overview (02/03/2021): Added automatically from request for surgery [id number] Persistent atrial fibrillation 05/07/2020 Tendon rupture, nontraumatic [...] 86 04/30/2021 10:28 AM EST Temperature 35.7 C (96.3 F) 03/16/2021 3:39 PM EST Respiratory Rate 17 04/30/2021 10:28 AM EST Oxygen Saturation 99% 04/30/2021 10:28 AM EST Inhaled Oxygen Concentration - - Weight 84.9 kg (187 lb 3.2 oz) 04/30/2021 10:28 AM EST Height 188 cm (6' 2 ) 04/30/2021 10:28 AM EST Body Mass Index 24.04 04/30/2021 10:28 AM EST Plan of Treatment Health Maintenance Due Date Last Done Comments Advance Care Planning 1950 Hepatitis C Virus Screening 1950 DTaP/Tdap/Td Vaccines (1 - Tdap) 1967 Pneumococcal Vaccines 50+ (1 of 1 - PCV) 1998 Zoster (Shingles) Vaccine (1 of 2) 1998 RSV Vaccine 50 years and older and Patients (1 - 1-dose 75+ series) 2023 Influenza Vaccine 11/23/2024 01/28/2021, , 01/07/2020, Additional history exists COVID-19 Vaccine (2024- season) 2024 08/07/2021, 01/28/2021, 07/27/2020, Additional history exists Hepatitis B Vaccines Aged Out No long er eligible based on patient's age to complete this topic Insurance MEDICARE PART A & B MEDICARE PART A & [place] [address] Advance Directives * Full Code (Latest Code Status on File) Date Activated Date Inactivated Comments 03/16/2021 3:20 PM * Full Code Date Activated Date Inactivated Comments 05/07/2020 7:40 PM 03/16/2021 6:29 AM Care Teams Head Bone Grinder Relationship Specialty Start Date End Date Gerda Feldman MD [address] [place] [address] [place] [address] PCP - General Internal Medicine 02/05/20 Jaylen Amin MD [address] [place] [address] Bagger And Stock Handler Helper Cardiovascular Disease 02/05/20 Osmel Huerta MD [address] [place] [address] [address] [place] [place] [address] Surgery, General 09/04/20 Wil Deras MD [address] [place] [address] Cardiovascular Disease 04/30/21
--- OUTSIDE RECORDS SUMMARY | 2025-03-05 15:43 | XMS_ITS | Clinical Summary ---
Author Organization [facility] Address [address] [place] [address] Phone Care Team Providers Care Seismic Plotter Name Role Phone Gerda Feldman MD Primary Care Provider [phone] Allergies Active Allergy Reactions Criticality Noted Date [...] (11/05/2021): Added automatically from request for surgery [id number] Non-traumatic tendon rupture 01/24/2020 11/05/2021 Overview (11/05/2021): [...] age to complete this topic Insurance Medicare [facility] Medicare [facility] Care Teams Seismic Plotter Relationship Specialty Start Date End Date Gerda Feldman MD [facility] [address] [place], [place] PCP - General Internal Medicine 10/21/21
== END 2025-03-05 15:06 | disposition home or self-care (01) ==
LOC: HO.HCS 14:01
PROVIDERS: PCP Internal Medicine; Visit Provider Internal Medicine
DX: Z98.890 Other specified postprocedural states (principal); I42.9 Cardiomyopathy, unspecified; I25.10 Atherosclerotic heart disease of native coronary artery without angina pectoris; I48.0 Paroxysmal atrial fibrillation; I49.3 Ventricular premature depolarization; Z95.0 Presence of cardiac pacemaker; N18.9 Chronic kidney disease, unspecified
CPT/HCPCS: 99214; G2211

== ENCOUNTER → 2025-03-05 14:01 | Outpatient (BNVA) | payer MEDICARE, SELFPAY | PROVIDERS: PCP Internal Medicine; Visit Provider Internal Medicine | DX: I48.0 Paroxysmal atrial fibrillation (principal); I25.10 Atherosclerotic heart disease of native coronary artery without angina pectoris; I49.3 Ventricular premature depolarization; Z98.890 Other specified postprocedural states; Z79.01 Long term (current) use of anticoagulants; Z95.0 Presence of cardiac pacemaker; Z87.891 Personal history of nicotine dependence; Z79.82 Long term (current) use of aspirin | CPT/HCPCS: 99212 ==

== ENCOUNTER → 2025-03-12 08:51 | Outpatient (REF) | payer MEDICARE, SELFPAY ==
--- NOTE | ~2025-03-12 | NM_ITS ---
EXAMINATION: NM KIDNEY IMAGING with Lasix. CLINICAL INFORMATION: Unspecified hydronephrosis. COMPARISON: Nuclear medicine kidney imaging with Lasix 06/26/2024, 03/15/2024 TECHNIQUE: 10 mCi of 90 9M technetium DTPA was administered intravenously and imaging with both kidneys was obtained up to 60 minutes. At 30 minutes minutes 40 mg of Lasix was administered and further imaging was obtained up to 30 minutes. FINDINGS: On perfusion exam there is normal flow seen to left kidney. The right kidney is barely visible. On progressive images there is normal left kidney cortical uptake with excretion of isotope opacifying left renal pelvis. Trace right kidney cortex uptake is seen with no opacification of pelvis or calyces. There is normal activity seen in the bladder. Post Lasix there is continuous decreased activity seen through left kidney with no signs of obstruction at this time. On renal analysis/ split function left kidney contributions 86.5% and right kidney function is 13.5%. Post Lasix time from max to half max is 21 minutes left kidney. The right kidney cannot be recorded due to lack of isotope activity. NM/NM renal flow w pharm int IMPRESSION: Normal left kidney perfusion, function without obstruction. There is likely extrarenal left kidney pelvis. Diminished right kidney function with trace cortical activity seen. On split function the right kidney contributions 13.5% and left kidney contributions 86.5% of total function. On previous nuclear medicine exam the left kidney function was 81.4% and prior to that 88.2%. It is still in range compared to previous study Electronically signed by: Ottoniel Acosta MD 03/12/2025 01:01 PM ARIA
== END ==
LOC: HO.NUCMED 08:51
PROVIDERS: PCP Internal Medicine; Visit Provider Urology
DX: N26.1 Atrophy of kidney (terminal) (principal); N13.30 Unspecified hydronephrosis
CPT/HCPCS: 78708; A9539; J1938

== ENCOUNTER → 2025-03-12 08:52 | Outpatient (BNV) | payer MEDICARE, SELFPAY | PROVIDERS: PCP Internal Medicine; Visit Provider Radiology Diagnostic Radiology | DX: N13.30 Unspecified hydronephrosis (principal) | CPT/HCPCS: 78708 ==

== ENCOUNTER 2025-03-19 13:50 | Outpatient (AMB) | payer MEDICARE, SELFPAY ==
--- NOTE | 2025-03-19 13:51 | MHC.OFFVIS ---
Intake Visit Reasons: 6m/Lasix renogram Intake Note: Patient is present for Lasix Renogram 6mo follow up Urology Medication:VITAMIN C Antibiotic Allergy:SULFA,AMOXICILLIN Blood Thinner:ASPIRIN Imaging : NM Renal Flow 03/12/25 Vice President Required: No Accompanied by: Self / Same As Patient Allergies gabapentin Allergy (Severe, Verified 03/19/25 13:52) Dizziness atorvastatin Allergy (Intermediate, Verified 03/19/25 13:52) Muscle cramps rosuvastatin Allergy (Intermediate, Verified 03/19/25 13:52) Muscle cramps Sulfa (Sulfonamide Antibiotics) (SULFA(SULFONAMIDE ANTIBIOTICS)) Allergy (Mild, Verified 03/19/25 13:52) RASH metoprolol Adverse Reaction (Severe, Verified 03/19/25 13:52) Chest Pain, sob, dizziness amoxicillin Adverse Reaction (Mild, Verified 03/19/25 13:52) Rash HPI Comments Details: Eliazar is a pleasant male. He is a patient of Dr. Feldman. He seen for the following urologic conditions - chronic hydronephrosis - lower urinary tract symptoms Six-month follow-up Repeat renogram shows diminished right function remaining within range Continues to follow with Nephrology P.r.n. follow-up urology Chronic hydronephrosis - nonfunctional right kidney Has had progressive medical renal disease last creatinine 2.3 has been in this range since 2021, 06/19 2.2 Renal ultrasound showing right hydronephrosis with normal parenchyma Lasix renogram 03/18 minimal activity right side, 07/17 with right stent in place minimal response right side - 03/19 Normal left kidney perfusion, function without obstruction. There is likely extrarenal left kidney pelvis. 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 Atherosclerotic cardiovascular disease Normally functioning cardiac pacemaker present Acute kidney injury Generalized anxiety disorder Osteoarthritis of knees, bilateral Obstructive sleep apnea (adult) (pediatric) DVT (deep venous thrombosis) Nasal polyp Asthma Nonrheumatic mitral valve regurgitation Cardiomyopathy Cerebral infarction due to embolism of unspecified cerebral artery PVC (premature ventricular contraction) Anxiety Allergic rhinitis Insomnia Congestive heart failure Gastroesophageal reflux disease Impaired glucose tolerance Congestive heart failure Lupus anticoagulant positive Paroxysmal atrial fibrillation Hypercholesterolemia Surgical History H/O hernia repair Ventral hernia Status post mitral valve repair History of cardiac radiofrequency ablation (~03/16/21) Status post arthroscopy of left knee History of cardioversion (~01/17/20) S/P medial meniscectomy of left knee History of arthroscopy of left knee Hx of repair of right rotator cuff History of tonsillectomy Family History Father HTN (hypertension) CVA (cerebral vascular accident) Mother Skin cancer Maternal Uncle Colon cancer Son No problems noted. Daughter No problems noted. Family/Other Breast cancer Paternal Uncle Colon cancer Social History Housing: House Are you a primary medicare insurance specialist to a significant other at home: No Do you presently have visiting nurse or other home services: No Alcohol intake: never Patient Tobacco Use Status: Former Tobacco user Tobacco use type: Cigarette Years Smoked: 12 +/- e-Cigarette/Vaping Use: Never Used Second Hand Smoke Exposure: Yes service: No Current occupational status: retired Cognitive needs: No Hearing needs: No Vision needs: No Review of Systems Const Denies chills and Denies fever(s) Card Reports no additional complaints and Denies syncope Resp Denies cough GI Denies abdominal pain and Denies heartburn Reports as per HPI and Denies change in libido Neuro Denies syncope Psych Denies change in libido Endo Denies change in libido Physical Exam Const General: cooperative, healthy appearing, comfortable and no acute distress Orientation/consciousness: patient oriented x3 HEENT Face and sinus: Yes normal facial exam Mouth: moist mucous membranes Neck Neck: Yes normal visual inspection, Yes full ROM and Yes trachea midline Chest Chest palpation & inspection: normal inspection of the chest Resp Effort & Inspection: normal respiratory effort, able to speak in complete sentences and no respiratory distress GI Inspection: Yes normal to inspection Back/Spine/Pelvis Cervical Spine: normal cervical lordosis Thoracic/Lumbar Spine: thoracic and lumbar spine normal to inspection Skin General skin exam: no rashes or lesions noted Neuro General: patient oriented x3, gait normal, tone normal and moves all extremities Extrem General: Yes normal to inspection and Yes capillary refill normal Results AMB Urinalysis, Automated UA Leukoctes 0 Dilshad/uL Last Edit by Dashaosmel German, [facility] on 03/19/25 14:02 UA Nitrite Negative Last Edit by [facility], [facility] on 03/19/25 14:02 UA Urobilinogen 0.2 mg/dL Last Edit by [facility], [facility] on 03/19/25 14:02 UA Protein 15 mg/dL Last Edit by [facility], [facility] on 03/19/25 14:02 UA pH 5.5 Last Edit by [facility], [facility] on 03/19/25 14:02 UA Blood 0 Mark/uL Last Edit by [facility], [facility] on 03/19/25 14:02 UA Specific Ferney 1.015 Last Edit by [facility], [facility] on 03/19/25 14:02 UA Ketone Negative Last Edit by [facility], [facility] on 03/19/25 14:02 UA Bilirubin 0 mg/dL Last Edit by [facility], [facility] on 03/19/25 14:02 UA Glucose 0 mg/dL Last Edit by [facility], [facility] on 03/19/25 14:02 Results Reviewed Results Reviewed: Laboratory Last Values Urine pH (Auto) 5.5 03/19/25 14:01 Specific Ferney (Auto) 1.015 03/19/25 14:01 Urine Protein (Auto) 15 mg/dL 03/19/25 14:01 Glucose (UA)(Auto) 0 mg/dL 03/19/25 14:01 Urine Ketones (Auto) Negative 03/19/25 14:01 Urine Blood (Auto) 0 Mark/uL 03/19/25 14:01 Urine Nitrite (Auto) Negative 03/19/25 14:01 Urine Bilirubin (Auto) 0 mg/dL 03/19/25 14:01 Urine Urobilinogen (Auto) 0.2 mg/dL 03/19/25 14:01 Leukocyte Esterase (Auto) 0 Dilshad/uL 03/19/25 14:01 Assessment & Plan Assessment & Plan (1) Hydronephrosis: Comment: Right proximal ureteric stricture with hydronephrosis Code(s): N13.30 - Unspecified hydronephrosis Category: Medical Qualifiers: Hydronephrosis type: unspecified Qualified Code(s): N13.30 - Unspecified hydronephrosis (2) Atrophic kidney, acquired: Code(s): N26.1 - Atrophy of kidney (terminal) Category: Medical Plan P.r.n. follow-up He will call if difficulty with urination Patient Instructions: This note is constructed using voice recognition software. While every effort has been made to ensure accuracy director of social services errors may have been included. Imaging studies, laboratory and physical exam results were discussed and reviewed in detail. No major barriers to patient understanding were identified. An opportunity to ask questions regarding the treatment plan was provided. All questions were answered. The patient expressed understanding and agreement with the above treatment plan. The patient is aware they should contact our office by phone for worsening of their current condition or the appearance of new urologic symptoms. Compliance is encouraged with any medications and followup testing that is ordered. It is a privilege to participate in the urologic care of your patient. If you have any questions or concerns regarding treatment for the above conditions, or other urologic issues, please do not hesitate to contact me. The office telephone contact is [phone]. Sincerely, Dr Antoine Kate MD, RUBÉN [facility] - Urology Compassionate Specialist Care for the Genitourinary System Coding Level of Care Code Complex visit Add On G2211 Diagnoses Hydronephrosis, unspecified hydronephrosis type N13.30 Hydronephrosis type: unspecified Atrophic kidney, acquired N26.1
--- OUTSIDE RECORDS SUMMARY | 2025-03-19 17:42 | XMS_ITS | Clinical Summary ---
Author Organization [facility] Address [address] [place] [address] Phone Care Team Providers Care Marketing Account Executive Name Role Phone Gerda Feldman MD Primary Care Provider Social History Tobacco Use Types Packs/Day Years [...] [place] [id number] [employer] MED[employer] SUPPLEMENT MEDICARE PART A & B [employer] NEW BERN MEDEX SUPPLEMENT MEDICARE PART A & B [employer] CROSS MEDEX SUPPLEMENT MEDICARE PART A & B [employer] SUPPLEMENT MEDICARE PART A & B [employer] CROSS MEDEX SUPPLEMENT MEDICARE PART A & B [employer] SUPPLEMENT MEDICARE PART A & B [employer] MED[employer] SUPPLEMENT MEDICARE PART A & B [employer] SUPPLEMENT MEDICARE PART A & B [employer] CROSS MEDEX SUPPLEMENT Care Teams Marketing Account Executive Relationship Specialty Start Date End Date Gerda Feldman MD [address] [place] [phone] PCP - General Internal Medicine 01/31/20 Additional Source Comments The information contained in this document represents components of the legal health record. It is not the complete legal health record.[facility]
--- OUTSIDE RECORDS SUMMARY | 2025-03-19 17:42 | XMS_ITS | Encounter Summary ---
Author Organization [facility] Address [address] [place] [address] Care Team Providers Care Fish Icer Name Role Phone Gerda Feldman MD Primary Care Provider [phone] Jaylen Amin MD Unavailable [phone] Robert Crockett MD Unavailable [phone] Osmel Huerta MD Unavailable [phone] Wil Deras MD Unavailable Encounter Details Date Type Department Care Team (Late st Contact Info) Description 05/06/2020 Prep for Surgery [facility] Heart & Vascular [place] - Electrophysiology [address] [place] [address] [place] [phone] Sophie Gtz, TELESCOPE OPERATOR [address] [address] Social History Tobacco Use Types Packs/Day Years [...] documented as of this encounter Care Teams Fish Icer Relationship Specialty Start Date End Date Gerda Feldman MD [address] [place] [address] Dr Youssef [address] [place] [address] [place] [address] PCP - General Internal Medicine 02/05/20 Jaylen Amin MD [address] [address] Warehouse Associate Driver Cardiovascular Disease 02/05/20 Robert Crockett MD [address] [address] Physician Cardiac Electrophysiology 03/01/2004/29 Osmel Huerta MD [address] [place] [address] Dr Youssef [address] [place] [address] [place] [address] Surgery, General 09/04/20 Wil Deras MD [address] [place] [address] Cardiovascular Disease 04/30/21 documented as of this encounter
--- OUTSIDE RECORDS SUMMARY | 2025-03-19 17:42 | XMS_ITS | Encounter Summary ---
Author Organization [facility] Address [address] [place] [address] Care Team Providers Care Top Frame Fitter Name Role Phone Gerda Feldman MD Primary Care Provider Jaylen Amin MD Unavailable [phone] Robert Crockett MD Unavailable [phone] Osmel Huerta MD Unavailable [phone] Wil Deras MD Unavailable Encounter Details Date Type Department Care Team (Late st Contact Info) Description 09/05/2020 Scanned Document [address] [place] [address] Provider, Janett, [address] [place] [address] Social History Tobacco Use Types Packs/Day Years [...] on filedocumented in this encounter Care Teams Top Frame Fitter Relationship Specialty Start Date End Date Gerda Feldman MD [address] [place] [address] Dr Youssef [address] [place] [address] PCP - General Internal Medicine 02/05/20 Jaylen Amin MD [address] [address] Applied Mathematician Cardiovascular Disease 02/05/20 Robert Crockett MD [address] [address] Physician Cardiac Electrophysiology 03/01/2004/29 Osmel Huerta MD [address] [place] [address] Dr Youssef [address] [place] [address] Surgery, General 09/04/20 Wil Deras MD [address] [place] [address] Cardiovascular Disease 04/30/21 documented as of this encounter
--- OUTSIDE RECORDS SUMMARY | 2025-03-19 17:42 | XMS_ITS | Encounter Summary ---
Author Organization [facility] Address [address] [place] [address] Care Team Providers Care Breed To Wean Production Technician Name Role Phone Gerda Feldman MD Primary Care Provider [phone] Jaylen Amin MD Unavailable Osmel Huerta MD Unavailable [phone] Wil Deras MD Unavailable Encounter Details Date Type Department Care Team (Late st Contact Info) Description 07/21/2021 Scanned Document [address] [address] Provider, MD Janett [address] [place] [address] Social History Tobacco Use Types Packs/Day Years [...] on filedocumented in this encounter Care Teams Breed To Wean Production Technician Relationship Specialty Start Date End Date Gerda Feldman MD [address] [place] [address] Dr Youssef [address] [place] [address] PCP - General Internal Medicine 02/05/20 Jaylen Amin MD [address] [place] [address] [address] [place] [address] Chief Informatics Officer Cardiovascular Disease 02/05/20 Osmel Huerta MD [address] [place] [address] Dr Youssef [address] [place] [address] Surgery, General 09/04/20 Wil Deras MD [address] [place] [address] Cardiovascular Disease 04/30/21 documented as of this encounter
--- OUTSIDE RECORDS SUMMARY | 2025-03-19 17:42 | XMS_ITS | Clinical Summary ---
Author Organization [facility] Address [address] [place] [phone] Phone Care Team Providers Care Camera Repairman Name Role Phone Physician, No Pcp Primary [...] History Medical History Date Comments Atrial fibrillation ([facility] V24, [facility] V28) CHF (congestive heart failure) ([facility] V24, [facility] V28) CVA (cerebral vascular accident) ([facility] V24, [facility] V28) Social History Tobacco Use Types Packs/Day [...] age to complete this topic Insurance MEDICARE [facility]) Care Teams Camera Repairman Relationship Specialty Start Date End Date Physician, No Pcp PCP - General 10/12/21
--- OUTSIDE RECORDS SUMMARY | 2025-03-19 17:42 | XMS_ITS | Encounter Summary ---
Author Organization [facility] Address [address] [place] [address] Phone Care Team Providers Care Lab Specialist Name Role Phone Gerda Feldman MD Primary Care Provider [phone] Reason for Referral * Consultation (Within 1 month) - Closed Specialty Diagnoses / Procedures Referred By Tyler childress Referred To Contact [facility] Cardiovascular Medicine [address] [place] [address], [address] Floor, [address] [place] [address] Phone: tel: fax: [facility] CARD [id number] Referral ID Status Reason Start Date Expiration Date Visits Re quested Visits Authorized [id number] Closed 02/01/2020 01/31/2021 1 1 Encounter Details Date Type Department Care Team (Late st Contact Info) Description 02/01/2020 Transcribe Orders [facility] Cardiovascular Medicine [address] [place] [address], [address] Floor, [address] [place] [address] Unknown, Unknown, Social History Tobacco Use Types [...] Associated Diagnoses Order Schedule Ambulatory referral to [facility] Cardiology Outpatient Referral Routine Ordered: 02/01/2020 documented as of this encounter Visit Diagnoses Not on filedocumented in this encounter Care Teams Lab Specialist Relationship Specialty Start Date End Date Gerda Feldman MD [address] [place] [address] [place] [phone] PCP - General Internal Medicine 01/31/20 documented as of this encounter Additional Source Comments The information contained in this document represents components of the legal health record. It is not the complete legal health record.[facility]
--- OUTSIDE RECORDS SUMMARY | 2025-03-19 17:42 | XMS_ITS | Patient Health Record ---
Author Organization [facility] Address [address] [facility] [address] [place] [address] Care Team Providers Care Supervisor Elementary Education Name Role Phone Chase Ahn M.D Primary [...] W/U Status Risk Notes Problem Anxiety disorder (500337198) Anxiety disorder, unspecified (F41.9) Active confirmed 10/14/21: Patient has undergone some life stressors due to his mother passing and his daughter going through rehab. Patient is accepting of the fact that he may be experiencing these symptoms because of his anxiety. Problem Paroxysmal atrial fibrillation (570773657) Paroxysmal atrial fibrillation (I48.0) Active confirmed 10/14/21: Patient has been taking amiodarone for his Afib and will undergo cardioversion as recommeneded by his die maker trim Problem Chronic systolic heart failure (130639740) Chronic systolic (congestive) heart failure (I50.22) Active confirmed 10/14/21: Stable not on any current medication Plan Of Treatment No Information Insurance Providers Payer Name Payer Address Payer Phone Subscriber Number Group Number Insured Name Patient Relationship to Insured Coverage Start Date Coverage End Date MEDICARE Part B- [facility] [address] [place] [phone] [id number] Eliazar Eldridge Self - patient is the [facility] [address] [address] [place] [address] [id number] Eliazar Eldridge Self - patient is the insured Medical (General) History Medical History History ICD Code Atrial Fibrillation Congestive Heart Failure Surgical History Surgery Date(Month/Year) Hernia repair 2020 Ablation for AFib 2021 Hospitalization History Reason Date(Month/Year) Rule out stroke 10/14
--- OUTSIDE RECORDS SUMMARY | 2025-03-19 17:43 | XMS_ITS | Encounter Summary ---
Author Organization [facility] Address [address] [place] [address] Care Team Providers Care Packaging Coordinator Name Role Phone Gerda Feldman MD Primary Care Provider Jaylen Amin MD Unavailable Robert Crockett MD Unavailable [phone] Osmel Huerta MD Unavailable [phone] Wil Deras MD Unavailable Encounter Details Date Type Department Care Team (Late st Contact Info) Description 05/22/2020 Scanned Document [address] [place] [address] Provider, Janett, [address] [place] [address] Social History Tobacco Use Types Packs/Day Years [...] on filedocumented in this encounter Care Teams Packaging Coordinator Relationship Specialty Start Date End Date Gerda Feldman MD [address] [place] [address] [address] PCP - General Internal Medicine 02/05/20 Jaylen Amin MD [address] [address] Vector Control Assistant Cardiovascular Disease 02/05/20 Robert Crockett MD [address] [address] Physician Cardiac Electrophysiology 03/01/2004/29 Osmel Huerta MD [address] [place] [address] Dr Youssef [address] [place] [address] Surgery, General 09/04/20 Wil Deras MD [address] [place] [address] Cardiovascular Disease 04/30/21 documented as of this encounter
--- OUTSIDE RECORDS SUMMARY | 2025-03-19 17:43 | XMS_ITS | Data Portability ---
Author Organization [facility] - Misael ValdesTheracosrishi s, [address] Address [address] [place] [address] Assessment No assessment recorded. Plan of Treatment Reminders Order Date Submit Date Provider Last Modified By Organization Details Last Modified Time Details Appointments None recorded. Lab None recorded. Referral otolaryngol ogist referral - feeling dizzy and vertigo especially waking upm in morning. need further evaluation and treatment. 2022 023 [email or web address] 26 Pratik Rivera MD, [address] [facility], [facility], [place], [address], 3 12:51:32 Procedures None recorded. Surgeries None recorded. Imaging None recorded. Medication Orders meclizine 25 mg tablet 2022 023 [id number], [address], [place], [id number], 3 19:15:43 Patient TargetsNo targets recorded. Patient Instructions Encounter Date Encounter Id Patient Instructions Last Modified By Organization Details Last Modified Time 06/06/2022 [id number] dizziness: care instructions Not available 06/06/2022 19:14:50 [...] Not available 06/06/2022 19:14:49 Reason for Referral Permastone Mechanic Referral fo r Benign paroxysmal positional vertigo [...] Address Organization Details Recorded Time Essential hypertension 59174915 Active 2022 IRIS COUVERTIE R null, [place] - [facility] 3 18:23:37 Acute kidney injury 00970907 Active 2022 IRIS COUVERTIE R null, PA - [facility] 3 18:26:17 Insomnia 650641053 Active 2022 IRIS COUVERTIE R null, PA [...] Name and Address Organization Details Recorded Time 593078 Substance with sulfonami de structure and antibacte rial mechanism of action (substanc e) medicatio n Not available Not available Not available 06/06/2022 13243 8003 SNOMED IRIS COUVERTIE R null, PA - [facility] 3 18:21:58 894800 gabapenti n medicatio n dizziness Not available Not available 06/06/2022 07763 RxNorm IRIS COUVERTIE R null, PA - [facility] 3 18:22:14 014238 rosuvasta tin medicatio n edema Not available Not available 06/06/2022 18210 2 RxNorm KRISHNA Muñoz bennett, PA - [...] DAY DIRECTED BY [facility] 06/06 completed Not Available Not Available Not [...] mass index (BMI) Body weight Oxygen saturation Heart rate Respiratory rate Body temperature Systolic And Diastolic Provider Name and Address Organization Details Last Updated DateTime 3 187.96 cm 23.8 kg/m2 15923.5 9 g 100 % 66 /min 18 /min 97.8 [...] ICD10 Code Diagnosis IMO Codes Diagnosis Note [id number] [address] [place] [address] 08/09/2016 14:01:54 08/09/2016 14:52:09 [id number] [address] [place] [address] 10/08/2019 14:19:37 10/08/2019 15:46:07 [id number] [address] [place] [address] 06/14/2020 09:23:40 06/14/2020 09:53:11 [id number] [address] [place] [address] 12/31/2018 10:08:17 12/31/2018 10:53:03 [id number] [address] [place] [address] 06/08/2016 13:08:05 06/08/2016 14:31:43 [id number] [address] [place] [address] 01/02/2020 17:09:44 01/02/2020 17:43:56 [id number] [address] [place] [address] 12/18/2019 15:16:32 12/18/2019 16:26:12 [id number] [address] [place] [address] 02/19/2016 13:00:02 02/19/2016 13:30:00 [id number] [address] [place] [address] 02/13/2016 15:03:43 02/13/2016 15:28:04 [id number] [address] [place] [address] 12/08/2017 08:46:06 12/08/2017 09:50:44 [id number] [address] [place] [address] 03/16/2020 15:48:34 03/16/2020 18:27:17 [id number] [address] [place] [address] 04/30/2020 13:25:07 04/30/2020 18:52:16 [id number] ARCHANA JAIMES [address] [place] [address] 06/06/2022 15:33:14 07/27/2022 19:27:19 Left without being seen [id number] 9102 Z53.21 [id number] Leroy Crandall [place] [address] [place] [address] 06/06/2022 17:13:56 06/06/2022 19:17:57 Benign paroxysmal positional vertigo 253887870 H81.10 Health Concerns Section Related Observation LastModified by Organization Detai ls LastModified Time None Recorded Concern Status LastModified by Organization Details LastModified Time None Recorded Advance Directives Directive None Recorded Payers Insurance Date Sequence Insurance Name Policy Number Policy Shelby Covered Member ID Shelby Member ID Guarantor Name 06/06/2022 1 [place] [employer] Eliazar Quispe [id number] Eliazar Quispe 06/06/2022 2 [place] [id number] Eliazar Quispe [id number] Eliazar Quispe Notes Date Note Type [...] Crandall NP [address] [place], [address], [place] - [facility] 06/06/2022 19:16:09
--- OUTSIDE RECORDS SUMMARY | 2025-03-19 17:43 | XMS_ITS ---
Author Name Vianey Mena Address Unknown Organization [facility] (512) Care Team Providers Care Medical Typist Name Role Phone Unavailable Primary Care Physician Unavailab le History Of Present Illness This is a 74 year old male who is following up for Degenerative Joint Disease, Foot on the right foot. He was seen on September 25, 2024, at which time he was treated with Steroid Injection - Intraarticular and (Patient Management Risk Level: Low).The patient presents for further evaluation and management.Today the patient reports: Pain Intensity 3.0 - 3/10 Pain. Context: difficulty standing, difficulty walking, and difficulty with normal activities of daily living. Quality: soreness, aching, and radiating. Signs and symptoms: instability, interfering with normal activities of daily life, resolving, and weakness. Timing: with walking and intermittent. Modifying factors: improved with rest and worsens with activity.The patient followed the treatment plan as directed. Allergies, Adverse Reactions, Alerts Substance RxNorm Reaction(s) Severity Status Start Da te Sulfa (Sulfonamide Antibiotics) unspecif ied active 07/12/2016 Medications Medication Generic Name RxNorm Strength Strength Unit Route Dose Dose Form Frequency Date Started Date Ended Status Indication Sig Adult Low Dose Aspirin aspirin 81 mg Oral 1 table t qd active Eliquis 3731585 5 mg Oral q table t qd active Problems Problem Code Type Status Date of Diagnosis Da te of Resolution Pain of joint of ankle and/or foot (finding) 530084748(SN OMED) Diagnosis active 03/18/2025 Osteoarthritis of joint of right ankle and/or foot (disorder) 546631083127 109(SNOMED) Diagnosis active 03/18/2025 Primary gonarthrosis, bilateral (disorder) 774377741(SN OMED) Diagnosis active 02/13/2025 Pain of joint of ankle and/or foot (finding) 009288823(SN OMED) Diagnosis active 09/25/2024 Osteoarthritis of joint of right ankle and/or foot (disorder) 470687519955 109(SNOMED) Diagnosis active 09/25/2024 Pain of knee region (finding) 1573018492(S NOMED) Diagnosis active 09/25/2024 Pain of knee region (finding) 3973089669(S NOMED) Diagnosis active 09/25/2024 Primary gonarthrosis, bilateral (disorder) 119243261(SN OMED) Diagnosis active 09/25/2024 Primary gonarthrosis, bilateral (disorder) 362044797(SN OMED) Diagnosis active 03/13/2024 Pain of joint of ankle and/or foot (finding) 259957262(SN OMED) Diagnosis active 03/13/2024 Osteoarthritis of joint of right ankle and/or foot (disorder) 705962367599 109(SNOMED) Diagnosis active 03/13/2024 Pain of joint of ankle and/or foot (finding) 215873384(SN OMED) Diagnosis active 10/11/2023 Osteoarthritis of joint of right ankle and/or foot (disorder) 717109390371 109(SNOMED) Diagnosis active 10/11/2023 Primary gonarthrosis, bilateral (disorder) 206538921(SN OMED) Diagnosis active 09/13/2023 Pain of knee region (finding) 0977494574(S NOMED) Diagnosis active 09/13/2023 Pain of knee region (finding) 2339386929(S NOMED) Diagnosis active 09/13/2023 Primary gonarthrosis, bilateral (disorder) 767402532(SN OMED) Diagnosis active 02/01/2023 Pain of joint of ankle and/or foot (finding) 647122194(SN OMED) Diagnosis active 12/21/2022 Osteoarthritis of joint of right ankle and/or foot (disorder) 027968846125 109(SNOMED) Diagnosis active 12/21/2022 Primary gonarthrosis, bilateral (disorder) 281276024(SN OMED) Diagnosis active 08/04/2022 Pain of joint of ankle and/or foot (finding) 279534757(SN OMED) Diagnosis active 07/27/2022 Osteoarthritis of joint of right ankle and/or foot (disorder) 844840441218 109(SNOMED) Diagnosis active 07/27/2022 Primary gonarthrosis, bilateral (disorder) 068783441(SN OMED) Diagnosis active 07/27/2022 Primary gonarthrosis, bilateral (disorder) 953651552(SN OMED) Diagnosis active 05/25/2022 Pain of joint of ankle and/or foot (finding) 459319867(SN OMED) Diagnosis active 01/19/2022 Osteoarthritis of joint of right ankle and/or foot (disorder) 054879769672 109(SNOMED) Diagnosis active 01/19/2022 Pain in right knee M25.561(ICD- 10) Diagnosis active 01/19/2022 Pain in left knee M25.562(ICD- 10) Diagnosis active 01/19/2022 Primary gonarthrosis, bilateral (disorder) 761976624(SN OMED) Diagnosis active 01/19/2022 Osteoarthritis of joint of right ankle and/or foot (disorder) 915450319538 109(SNOMED) Diagnosis active 08/04/2021 Primary gonarthrosis, bilateral (disorder) 993451097(SN OMED) Diagnosis active 08/04/2021 Osteoarthritis of joint of right ankle and/or foot (disorder) 588569461297 109(SNOMED) Diagnosis active 02/03/2021 Primary gonarthrosis, bilateral (disorder) 933915854(SN OMED) Diagnosis active 02/03/2021 Primary osteoarthritis, right ankle and foot M19.071(ICD- 10) Diagnosis active 06/17/2020 Bilateral primary osteoarthritis of knee M17.0(ICD-10 ) Diagnosis active 06/17/2020 Bilateral primary osteoarthritis of knee M17.0(ICD-10 ) Diagnosis active 06/03/2020 Unilateral primary osteoarthritis, left knee M17.12(ICD-1 0) Diagnosis active Unilateral primary osteoarthritis, right knee M17.11(ICD-1 0) Diagnosis active Contracture, right ankle M24.571(ICD- 10) Diagnosis active Primary osteoarthritis, right ankle and foot M19.071(ICD- 10) Diagnosis active Plantar fascial fibromatosis M72.2(ICD-10 ) Diagnosis active Administration of vaccine product against severe acute respiratory syndrome coronavirus 2 (procedure) 8244773050(S NOMED) Problem active Results No data Encounters Educated patient in great detail should be noted patient is here today for midfoot DJD follow-up. We did perform a corticosteroid injection he tolerated it well. He still is not interested in surgical intervention. We will see him every 4 months. Also he will ice as instructed and use topical [id number] anti-inflammatory. Service provided at [facility] (512), [address] [place] [address], [address], [place], [place] [id number]. Office phone number is [phone]. Encounter Diagnosis Location Date / Time Type Ankle Pain (M25.579)Degenera tive Joint Disease, Foot, Right (M19.071)Degenerative Joint Disease, Ankle, Right (M19.071) [facility] (512) 03/18/2025 19:30:00 UTC [id number] Reason For Referral No data Procedures Procedure Date Documentation of current medications (pr ocedure) 03/18/2025 12:00 am UTC Injection of local anesthetic into joint (procedure) 03/18/2025 12:00 am UTC Injection of steroid into shoulder joint (procedure) 09/25/2024 12:00 am UTC Ultrasonic guidance procedure (procedure ) 09/25/2024 12:00 am UTC Viscosupplementation (procedure) 025 12:00 am UTC Ultrasonic guidance procedure (procedure ) 03/13/2024 12:00 am UTC Viscosupplementation (procedure) 024 12:00 am UTC Injection of local anesthetic into joint (procedure) 03/13/2024 12:00 am UTC Injection of steroid into shoulder joint (procedure) 10/11/2023 12:00 am UTC Ultrasonic guidance procedure (procedure ) 09/13/2023 12:00 am UTC Viscosupplementation (procedure) 024 12:00 am UTC Viscosupplementation (procedure) 023 12:00 am UTC Ultrasonic guidance procedure (procedure ) 02/01/2023 12:00 am UTC Viscosupplementation (procedure) 023 12:00 am UTC Ultrasonic guidance procedure (procedure ) 07/27/2022 12:00 am UTC Injection of steroid into joint (procedu re) 01/19/2022 12:00 am UTC Arthrocentesis (procedure) 01/19/2022 12 :00 am UTC Viscosupplementation (procedure) 022 12:00 am UTC Ultrasonic guidance procedure (procedure ) 01/19/2022 12:00 am UTC Ultrasonic guidance procedure (procedure ) 08/04/2021 12:00 am UTC Viscosupplementation (procedure) 022 12:00 am UTC Arthrocentesis (procedure) 02/03/2021 12 :00 am UTC Injection of steroid into joint (procedu re) 02/03/2021 12:00 am UTC Ultrasonic guidance procedure (procedure ) 02/03/2021 12:00 am UTC Injection of steroid into joint (procedu re) 02/03/2021 12:00 am UTC Arthrocentesis (procedure) 06/17/2020 12 :00 am UTC Injection of steroid into joint (procedu re) 06/17/2020 12:00 am UTC Viscosupplementation (procedure) 021 12:00 am UTC Ultrasonic guidance procedure (procedure ) 06/17/2020 12:00 am UTC Documentation of past medical history (p rocedure) Documentation of past medical history (p rocedure) Documentation of past medical history (p rocedure) Documentation of past medical history (p rocedure) Documentation of past medical history (p rocedure) Documentation of past medical history (p rocedure) Documentation of past medical history (p rocedure) Documentation of past medical history (p rocedure) Documentation of past medical history (p rocedure) Documentation of past medical history (p rocedure) Documentation of past medical history (p rocedure) Documentation of past medical history (p rocedure) Documentation of past medical history (p rocedure) Documentation of past medical history (p rocedure) Documentation of past medical history (p rocedure) Documentation of past medical history (p rocedure) Documentation of past medical history (p rocedure) Documentation of past medical history (p rocedure) Documentation of past medical history (p rocedure) Documentation of past medical history (p rocedure) Documentation of past medical history (p rocedure) Documentation of past medical history (p rocedure) Documentation of past medical history (p rocedure) Documentation of past medical history (p rocedure) null Review Of Systems Provider reviewed on Mar 18, 2025.A complete review of systems was performed and was notable for joint pains and joint stiffness.No Rheumatoid Arthritis, No Allergy To Latex, No Allergy To Adhesive, No Joint Swelling (document Affected Joints Last 6 Months In Notes), No Unsteady Gait/tremors, No Numbness, No Tingling, No Fever, No Chills, No Poor Healing Wounds, No Rash, No Easy Bruising, No NoseBleeds, No Heartburn, No Incontinence, No Anxiety, No Depression, No Recent Weight Gain (document Amount In Notes), No Dryness, No Recent Increase In Tooth Cavities, No Recent Weight Loss (document Amount In Notes), No Fatigue, No Weakness, No Fever, No Night Sweats, No Morning Stiffness (document Duration In Notes), No Muscle Tenderness, No Muscle Weakness, No Loss Of Hearing, No Eye Pain, No Redness, No Loss Of Vision, No Dryness, No Sores In Mouth, No Mouth Dryness, No Loss Of Smell, No Hoarseness, No Difficulty In Swallowing, No Pain In Jaw While Chewing, No Swollen/tender Glands (neck), No Pain In Chest, No Shortness Of Breath, No Cough, No Coughing Of Blood, No Wheezing, No Nausea/vomiting, No Increasing Constipation, No Persistent Diarrhea, No Blood In Stool, No Difficult/painful Urination, No Anemia, No Bleeding Tendency, No Hives, No Sun Sensitive, No Skin Tightness, No Nodules/ bumps, No Hair Loss, No Color Changes Of Hands/feet In The Cold (raynaud's), No Alopecia, No Headaches, No Numbness Or Tingling In Hands/feet, No Memory Loss, No Sleeping Disorder, And No History Of Psoriasis, Crohn's Disease, Or Ulcerative Colitis. Assessment 1.Ankle Pain2.Degenerative Joint Disease, Foot, RightPrescription Medication Management: Prescription Medication Plan - Continue Regimen - Continue with current prescription medication regimen..3.Degenerative Joint Disease, Ankle, RightAnesthetic Injection - Intraarticular: right ankle joint; Anesthetic #2 - 1% lidocaine without epinephrine; Anesthetic - 1% lidocaine without epinephrine. Plan of Care Future visit for 07/08/2025 - Follow up in 4 months Instructions No Data Social History Code Activity Start Date End Date 3373517 (SNOMED) Former smoker Sex male Sexual orientation Unspecified Gender identity Unspecified Vital Signs Vital Sign Measurement Date Recorded Body Height 74.0 in TueMar 18:19 :37 [facility] 2024 Body Weight 182.0 lbs TueMar 18:19 :37 [facility] 2024 Body Mass Index 23.4 kg/m2 TueMar 18:19 :37 [facility] 2024
--- OUTSIDE RECORDS SUMMARY | 2025-03-19 17:43 | XMS_ITS | Encounter Summary ---
Author Organization [facility] Address [address] [place] [address] Care Team Providers Care Magistrate Judge Name Role Phone Gerda Feldman MD Primary Care Provider Jaylen Amin MD Unavailable Robert Crockett MD Unavailable [phone] Osmel Huerta MD Unavailable [phone] Wil Deras MD Unavailable Encounter Details Date Type Department Care Team (Late st Contact Info) Description 02/15/2020 Abstract [facility]- [address] [place] [id number] [address] Social History Tobacco Use Types Packs/Day Years [...] documented as of this encounter Care Teams Magistrate Judge Relationship Specialty Start Date End Date Gerda Feldman MD [address] [place] [address] Dr Youssef [address] [place] [address] PCP - General Internal Medicine 02/05/20 Jaylen Amin MD [address] [address] Sailboat Captain Cardiovascular Disease 02/05/20 Robert Crockett MD [address] [address] Physician Cardiac Electrophysiology 03/01/2004/29 Osmel Huerta MD [address] [place] [address] Dr Youssef [address] [place] [address] Surgery, General 09/04/20 Wil Deras MD [address] [place] [address] Cardiovascular Disease 04/30/21 documented as of this encounter
--- OUTSIDE RECORDS SUMMARY | 2025-03-19 17:43 | XMS_ITS | Encounter Summary ---
Author Organization [facility] Address [address] [place] [address] Care Team Providers Care Mapping Specialist Name Role Phone Gerda Feldman MD Primary Care Provider Jaylen Amin MD Unavailable Robert Crockett MD Unavailable [phone] Osmel Huerta MD Unavailable [phone] Wil Deras MD Unavailable Encounter Details Date Type Department Care Team (Late st Contact Info) Description 02/15/2020 Scanned Document [address] [place] [address] Provider, Janett, [address] [place] [address] Social History Tobacco Use Types Packs/Day Years [...] documented as of this encounter Care Teams Mapping Specialist Relationship Specialty Start Date End Date Gerda Feldman MD [address] [place] [address] Dr Youssef [address] [place] [address] PCP - General Internal Medicine 02/05/20 Jaylen Amin MD [address] [address] Undercollar Baster Cardiovascular Disease 02/05/20 Robert Crockett MD [address] [address] Physician Cardiac Electrophysiology 03/01/2004/29 Osmel Huerta MD [address] [place] [address] Dr Youssef [address] [place] [address] Surgery, General 09/04/20 Wil eDras MD [address] [place] [address] Cardiovascular Disease 04/30/21 documented as of this encounter
--- OUTSIDE RECORDS SUMMARY | 2025-03-19 17:43 | XMS_ITS | Clinical Summary ---
Author Organization [facility] Address [address] [place] [address] Phone Care Team Providers Care Used Car Lot Attendant Name Role Phone Gerda Feldman MD [...] (11/05/2021): Added automatically from request for surgery [id number] Non-traumatic tendon rupture 01/24/2020 11/05/2021 Overview (11/05/2021): [...] age to complete this topic Insurance Medicare [facility] Medicare [facility] Care Teams Used Car Lot Attendant Relationship Specialty Start Date End Date Gerda Feldman MD [facility] [place] [address] [place], [place] PCP - General Internal Medicine 10/21/21
--- OUTSIDE RECORDS SUMMARY | 2025-03-19 17:43 | XMS_ITS | Clinical Summary ---
Author Organization [facility] Address [address] [place] [address] Care Team Providers Care Drilling And Production Superintendent Name Role Phone Gerda Feldman MD Primary Care Provider Jaylen Amin MD Unavailable Osmel Huerta MD Unavailable [phone] Wil Deras MD Unavailable Allergies Active [...] Take 400 mcg by mouth daily. Active [place]-3 Fatty Acids (FISH OIL PO) Take by mouth daily. Active Active Problems Problem Noted Date Diagnosed Date Atrial flutter 02/03/2021 Overview (02/03/2021): Added automatically from request for surgery [id number] Persistent atrial fibrillation 05/07/2020 Tendon rupture, nontraumatic [...] & B MEDICARE PART A & [place] [address] Advance Directives * Full Code (Latest Code Status on File) Date Activated Date Inactivated Comments 03/16/2021 3:20 PM * Full Code Date Activated Date Inactivated Comments 05/07/2020 7:40 PM 03/16/2021 6:29 AM Care Teams Drilling And Production Superintendent Relationship Specialty Start Date End Date Gerda Feldman MD [address] [place] [address] [place] [address] PCP - General Internal Medicine 02/05/20 Jaylen Amin MD [address] [place] [address] Loom Repairer Cardiovascular Disease 02/05/20 Osmel Huerta MD [address] [place] [address] [address] [place] [place] [address] Surgery, General 09/04/20 Wil Deras MD [address] [place] [address] Cardiovascular Disease 04/30/21
--- OUTSIDE RECORDS SUMMARY | 2025-03-19 17:43 | XMS_ITS | Encounter Summary ---
Author Organization [facility] Address [address] [place] [address] Care Team Providers Care Sports Analyst Name Role Phone Gerda Feldman MD Primary Care Provider Jaylen Amin MD Unavailable Robert Crockett MD Unavailable [phone] Osmel Huerta MD Unavailable [phone] Wil Deras MD Unavailable Encounter Details Date Type Department Care Team (Late st Contact Info) Description 02/18/2020 Scanned Document [address] [place] [address] Provider, Janett, [address] [place] [address] Social History Tobacco Use Types Packs/Day Years [...] documented as of this encounter Care Teams Sports Analyst Relationship Specialty Start Date End Date Gerda Feldman MD [address] [place] [address] Dr Youssef [address] [place] [address] PCP - General Internal Medicine 02/05/20 Jaylen Amin MD [address] [address] Vehicle Body Maker Cardiovascular Disease 02/05/20 Robert Crockett MD [address] [address] Physician Cardiac Electrophysiology 03/01/2004/29 Osmel Huerta MD [address] [place] [address] Dr Youssef [address] [place] [address] Surgery, General 09/04/20 Wil Deras MD [address] [place] [address] Cardiovascular Disease 04/30/21 documented as of this encounter
--- OUTSIDE RECORDS SUMMARY | 2025-03-19 17:43 | XMS_ITS | Encounter Summary ---
Author Organization [facility] Address [address] [place] [address] Care Team Providers Care Slitting And Shipping Supervisor Name Role Phone Gerda Feldman MD Primary Care Provider Jaylen Amin MD Unavailable Robert Crockett MD Unavailable [phone] Osmel Huerta MD Unavailable [phone] Wil Deras MD Unavailable Encounter Details Date Type Department Care Team (Late st Contact Info) Description 02/15/2020 Scanned Document [address] [place] [address] Provider, Janett, [address] [place] [address] Social History Tobacco Use Types Packs/Day Years [...] documented as of this encounter Care Teams Slitting And Shipping Supervisor Relationship Specialty Start Date End Date Gerda Feldman MD [address] [place] [address] Dr Youssef [address] [place] [address] PCP - General Internal Medicine 02/05/20 Jaylen Amin MD [address] [address] Rivet Spinner Cardiovascular Disease 02/05/20 Robert Crockett MD [address] [address] Physician Cardiac Electrophysiology 03/01/2004/29 Osmel Huerta MD [address] [place] [address] Dr Youssef [address] [place] [address] Surgery, General 09/04/20 Wil Deras MD [address] [place] [address] Cardiovascular Disease 04/30/21 documented as of this encounter
--- OUTSIDE RECORDS SUMMARY | 2025-03-19 17:43 | XMS_ITS | Encounter Summary ---
Author Organization [facility] Address [address] [place] [address] Care Team Providers Care Steward/Stewardess Room Name Role Phone Gerda Feldman MD Primary Care Provider Jaylen Amin MD Unavailable Robert Crockett MD Unavailable [phone] Osmel Huerta MD Unavailable [phone] Wil Deras MD Unavailable Encounter Details Date Type Department Care Team (Late st Contact Info) Description 02/21/2020 Scanned Document [address] [place] [address] Provider, Janett, [address] [place] [address] Social History Tobacco Use Types Packs/Day Years [...] documented as of this encounter Care Teams Steward/Stewardess Room Relationship Specialty Start Date End Date Gerda Feldman MD [address] [place] [address] Dr Youssef [address] [place] [address] PCP - General Internal Medicine 02/05/20 Jaylen Amin MD [address] [address] Animal Pathologist Cardiovascular Disease 02/05/20 Robert Crockett MD [address] [address] Physician Cardiac Electrophysiology 03/01/2004/29 Osmel Huerat MD [address] [place] [address] Dr Youssef [address] [place] [address] Surgery, General 09/04/20 Wil Deras MD [address] [place] [address] Cardiovascular Disease 04/30/21 documented as of this encounter
== END 2025-03-19 14:24 | disposition home or self-care (01) ==
LOC: HO.HUSH 13:50
PROVIDERS: PCP Internal Medicine; Visit Provider Urology
DX: N26.1 Atrophy of kidney (terminal) (principal); N13.30 Unspecified hydronephrosis
CPT/HCPCS: 99213; G2211

== ENCOUNTER → 2025-03-19 13:50 | Outpatient (BNVA) | payer MEDICARE, SELFPAY | PROVIDERS: PCP Internal Medicine; Visit Provider Urology | DX: N13.30 Unspecified hydronephrosis (principal); N26.1 Atrophy of kidney (terminal) | CPT/HCPCS: 99212 ==

== ENCOUNTER 2025-04-01 12:51 | Outpatient (REF) | payer MEDICARE, SELFPAY ==
[2025-04-01 16:17] LABS: MANUAL DIFF FLAG NO
[2025-04-01 16:25] LABS: Hematocrit 35.0 % (42.0-52.0); Hemoglobin 11.0 g/dl (14.0-18.0); Imm Gran Abs Auto 0.01 X10*3/uL (0.00-0.03); Imm Gran Pct Auto 0.2 % (0.0-0.4); Lymphocytes Absolute Auto 1.3 X10*3/uL (1.2-4.9); Mean Corpuscular HGB Conc 31.4 g/dl (31.0-36.0); Mean Corpuscular Hemoglobin 28.1 pg (27.0-33.0); Mean Corpuscular Volume 89.3 fL (80.0-98.0); NRBC Abs Auto 0.000 X10*3/uL (0.0-0.012); NRBC Pct Auto 0.0 /100WBC (0.0-0.2); Platelet Count 341 X10*3/uL (160-400); Red Blood Count 3.92 X10*6/uL (4.60-5.80); Reticulocytes Absolute 0.053 X10*6/uL (0.026-0.095); White Blood Count 6.0 X10*3/uL (4.8-10.8)
[2025-04-01 17:29] LABS: Alanine Aminotransferase 21 U/L (0-40); Albumin Level 4.4 g/dL (3.5-5.0); Alkaline Phosphatase 94 U/L (39-117); Anion Gap 14 (12-20); Aspartate Amino Transferase 21 U/L (5-37); Blood Urea Nitrogen 47 mg/dL (9-16); Calcium 9.9 mg/dL (8.4-10.2); Carbon Dioxide 20 mmol/L (22-29); Chloride 110 mmol/L (96-108); Cholesterol 187 mg/dL (<200); Estimated Glomerular Filt Rate 25; HDL Cholesterol 87 mg/dL (>40); Iron 48 mcg/dL (45-160); Percent Iron Saturation 15 % (15-50); Potassium 5.1 mmol/L (3.3-5.1); Sodium 139 mmol/L (135-145); Total Iron Binding Capacity 325 mcg/dL (228-428); Total Protein 7.5 g/dL (6.5-8.0); Triglycerides 37 mg/dL (<150); Unsaturated Iron Binding 277 ug/dL
[2025-04-01 17:38] LABS: Ferritin 51 ng/mL (20-250); Free T4 (Free Thyroxine) 0.95 ng/dL (0.71-1.85); Thyroid Stimulating Hormone 1.98 uIU/mL (0.32-4.0)
[2025-04-01 17:59] LABS: Folate > 20.0 ng/mL (> or = 4.0); Vitamin B12 934 pg/mL (200-900)
== END 2025-04-01 12:52 | disposition home or self-care (01) ==
LOC: HO.HMGCLDS 12:51
PROVIDERS: PCP Internal Medicine; Visit Provider Internal Medicine
DX: D64.9 Anemia, unspecified (principal); E78.00 Pure hypercholesterolemia, unspecified; Z12.5 Encounter for screening for malignant neoplasm of prostate
CPT/HCPCS: 36415; 80053; 80061; 82607; 82728; 82746; 83540; 84153; 84439; 84443; 85025; 85045

== ENCOUNTER 2025-04-09 14:35 | Outpatient (AMB) | payer MEDICARE, SELFPAY ==
[2025-04-09 15:11] VITALS: BP 120/74; PULSE 75; O2SAT 99; BMI 25.9
--- NOTE | 2025-04-09 15:11 | A.OFFVIS_ITS ---
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 Assembly Required: No Accompanied by: Self / Same As Patient Allergies gabapentin Allergy (Severe, Verified 04/15/25 14:34) Dizziness atorvastatin Allergy (Intermediate, Verified 04/15/25 14:34) Muscle cramps rosuvastatin Allergy (Intermediate, Verified 04/15/25 14:34) Muscle cramps Sulfa (Sulfonamide Antibiotics) (SULFA(SULFONAMIDE ANTIBIOTICS)) Allergy (Mild, Verified 04/15/25 14:34) RASH metoprolol Adverse Reaction (Severe, Verified 04/15/25 14:34) Chest Pain, sob, dizziness amoxicillin Adverse Reaction (Mild, Verified 04/15/25 14:34) Rash HPI Comments Details: 75-yr-old male presents for follow-up visit of sleep apnea in the setting of multiple cardiac conditions including atrial fibrillation, atypical flutter, mitral regurgitation, PVCs, congestive heart failure, status post pacemaker implantation, chronic kidney disease. Pt denies any significant interval medical history changes. Pt continues to use his CPAP nightly. His residual AHI is 1.7/hr. He does sleep well with the CPAP, but does feel it causes dry mouth at times. States the XyliMelts tabs are not helpful. He is again curious if he still needs to use the APAP device. Continues to be followed closely by Cardiology and Nephrology. 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 Atherosclerotic cardiovascular disease Normally functioning cardiac pacemaker present Acute kidney injury Generalized anxiety disorder Osteoarthritis of knees, bilateral Obstructive sleep apnea (adult) (pediatric) DVT (deep venous thrombosis) Nasal polyp Asthma Nonrheumatic mitral valve regurgitation Cardiomyopathy Cerebral infarction due to embolism of unspecified cerebral artery PVC (premature ventricular contraction) Anxiety Allergic rhinitis Insomnia Congestive heart failure Gastroesophageal reflux disease Impaired glucose tolerance Congestive heart failure Lupus anticoagulant positive Paroxysmal atrial fibrillation Hypercholesterolemia Surgical History H/O hernia repair Ventral hernia Status post mitral valve repair History of cardiac radiofrequency ablation (~03/16/21) Status post arthroscopy of left knee History of cardioversion (~01/17/20) S/P medial meniscectomy of left knee History of arthroscopy of left knee Hx of repair of right rotator cuff History of tonsillectomy Family History Father HTN (hypertension) CVA (cerebral vascular accident) Mother Skin cancer Maternal Uncle Colon cancer Son No problems noted. Daughter No problems noted. Family/Other Breast cancer Paternal Uncle Colon cancer Social History Housing: House Are you a primary animal care service worker to a significant other at home: No Do you presently have visiting nurse or other home services: No Alcohol intake: never Patient Tobacco Use Status: Former Tobacco user Tobacco use type: Cigarette Years Smoked: 12 +/- e-Cigarette/Vaping Use: Never Used Second Hand Smoke Exposure: Yes service: No Current occupational status: retired Cognitive needs: No Hearing needs: No Vision needs: No Review of Systems Const All systems reviewed & are unremarkable except as noted in HPI and below Physical Exam Vital Signs: Last Vital Signs Pulse 75 04/09/25 15:11 BP 120/74 04/09/25 15:11 Pulse Ox 99 04/09/25 15:11 Oxygen Delivery Method Room Air 04/09/25 15:11 BMI result Body Mass Index 25.9 Const General: no acute distress Orientation/consciousness: patient oriented x3 HEENT Other: Mallampati stage Resp Effort & Inspection: normal respiratory effort and able to speak in complete sentences Auscultation: clear to auscultation bilaterally Cardio Rate: regular rate Rhythm: regular rhythm Neuro General: patient oriented x3 Cognition (Neuro): normal cognition Psych Mental Status: mental status grossly normal Speech and movement: Clear speech present Attitude: cooperative Results Reviewed Results Reviewed: PAP compliance report- see HPI Assessment & Plan Assessment & Plan (1) KAREN on CPAP: Code(s): G47.33 - Obstructive sleep apnea (adult) (pediatric); Z99.89 - Dependence on other enabling machines and devices Category: Medical Plan Reviewed previous HST- AHI 6/hr. Discussed with the patient that even though his KAREN is mild, he continues to have chronic cardiac and renal issues, I continue to encourage him to use the PAP machine to tx his sleep apnea as part of his overall plan to optimize his CV risk factors. Clean CPAP machine and supplies routinely. Change CPAP supplies routinely. Pt to contact us or respiratory company with any questions or concerns. Pt to follow-up in 12 months or sooner prn. Coding Level of Care Code Est Pt Level 3 (70382) Diagnoses KAREN on CPAP G47.33; Z99.89
--- OUTSIDE RECORDS SUMMARY | 2025-04-09 18:51 | XMS_ITS | Encounter Summary ---
Author Organization [facility] Address [address] [place] [address] Care Team Providers Care Psychology Professor Name Role Phone Gerda Feldman MD Primary Care Provider Jaylen Amin MD Unavailable [phone] Robert Crockett MD Unavailable [phone] Osmel Huerta MD Unavailable [phone] Wil Deras MD Unavailable Encounter Details Date Type Department Care Team (Late st Contact Info) Description 09/05/2020 Scanned Document [address] [place] [address] Provider, Janett, [address] [place] [address] Social History Tobacco Use Types Packs/Day Years [...] on filedocumented in this encounter Care Teams Psychology Professor Relationship Specialty Start Date End Date Gerda Feldman MD [address] [place] [address] Dr Youssef [address] [place] [address] PCP - General Internal Medicine 02/05/20 Jaylen Amin MD [address] [address] Media Manager Cardiovascular Disease 02/05/20 Robert Crockett MD [address] [address] Physician Cardiac Electrophysiology 03/01/2004/29 Osmel Huerta MD [address] [place] [address] Dr Youssef [address] [place] [address] Surgery, General 09/04/20 Wil Deras MD [address] [place] [address] Cardiovascular Disease 04/30/21 documented as of this encounter
--- OUTSIDE RECORDS SUMMARY | 2025-04-09 18:51 | XMS_ITS | Encounter Summary ---
Author Organization [facility] Address [address] [place] [address] Care Team Providers Care Environmental Sciences Professor Name Role Phone Gerda Feldman MD Primary Care Provider Jaylen Amin MD Unavailable Robert Crockett MD Unavailable [phone] Osmel Huerta MD Unavailable [phone] Wil Deras MD Unavailable Encounter Details Date Type Department Care Team (Late st Contact Info) Description 02/21/2020 Scanned Document [address] [place] [address] Provider, Janett, [address] [place] [address] Social History Tobacco Use Types Packs/Day Years [...] documented as of this encounter Care Teams Environmental Sciences Professor Relationship Specialty Start Date End Date Gerda Feldman MD [address] [place] [address] Dr Youssef [address] [place] [address] PCP - General Internal Medicine 02/05/20 Jaylen Amin MD [address] [address] Bench Worker Helper Cardiovascular Disease 02/05/20 Robert Crockett MD [address] [address] Physician Cardiac Electrophysiology 03/01/2004/29 Osmel Huerta MD [address] [place] [address] Dr Youssef [address] [place] [address] Surgery, General 09/04/20 Wil Deras MD [address] [place] [address] Cardiovascular Disease 04/30/21 documented as of this encounter
--- OUTSIDE RECORDS SUMMARY | 2025-04-09 18:51 | XMS_ITS | Encounter Summary ---
Author Organization [facility] Address [address] [place] [address] Care Team Providers Care Perl Programmer Name Role Phone Gerda Feldman MD Primary Care Provider Jaylen Amin MD Unavailable Robert Crockett MD Unavailable [phone] Osmel Huerta MD Unavailable [phone] Wil Deras MD Unavailable Encounter Details Date Type Department Care Team (Late st Contact Info) Description 02/15/2020 Scanned Document [address] [place] [address] Provider, Janett, [address] [place] [address] Social History Tobacco Use Types Packs/Day Years [...] documented as of this encounter Care Teams Perl Programmer Relationship Specialty Start Date End Date Gerda Feldman MD [address] [place] [address] Dr Youssef [address] [place] [address] PCP - General Internal Medicine 02/05/20 Jaylen Amin MD [address] [address] Plasterer Rough Cardiovascular Disease 02/05/20 Robert Crockett MD [address] [address] Physician Cardiac Electrophysiology 03/01/2004/29 Osmel Huerta MD [address] [place] [address] Dr Youssef [address] [place] [address] Surgery, General 09/04/20 Wil Deras MD [address] [place] [address] Cardiovascular Disease 04/30/21 documented as of this encounter
--- OUTSIDE RECORDS SUMMARY | 2025-04-09 18:51 | XMS_ITS | Clinical Summary ---
Author Organization [facility] [place] [address] Phone Care Team Providers Care Banquet Bartender Name Role Phone Physician, No Pcp Primary [...] History Medical History Date Comments Atrial fibrillation ([facility] V24, [facility] V28) CHF (congestive heart failure) ([facility] V24, [facility] V28) CVA (cerebral vascular accident) ([facility] V24, [facility] V28) Social History Tobacco Use Types [...] age to complete this topic Insurance MEDICARE [facility]) Care Teams Banquet Bartender Relationship Specialty Start Date End Date Physician, No Pcp PCP - General 10/12/21
--- OUTSIDE RECORDS SUMMARY | 2025-04-09 18:51 | XMS_ITS | Encounter Summary ---
Author Organization [facility] Address [address] [facility] [address] [place] [address] Phone Care Team Providers Care Associate Dean Name Role Phone Gerda Feldman MD Primary Care Provider [phone] Reason for Referral * Consultation (Within 1 month) - Closed Specialty Diagnoses / Procedures Referred By Tyler childress Referred To Contact [facility] [address], [address], [address] [place] [address] Phone: tel: fax: [facility] CARD [id number] Referral ID Status Reason Start Date Expiration Date Visits Re quested Visits Authorized [id number] Closed 02/01/2020 01/31/2021 1 1 Electronically signed by [facility] [place], Provider at 02/01/2020 1:36 PM EDT Encounter Details Date Type Department Care Team (Late st Contact Info) Description 02/01/2020 Transcribe Orders [facility] [address], [address] [place] [address] Unknown, Unknown, Social History Tobacco Use Types [...] Associated Diagnoses Order Schedule Ambulatory referral to [facility] Cardiology Outpatient Referral Routine Ordered: 02/01/2020 documented as of this encounter Visit Diagnoses Not on filedocumented in this encounter Care Teams Associate Dean Relationship Specialty Start Date End Date Gerda Feldman MD [address] [place] [address] [address] [place] [address] PCP - General Internal Medicine 01/31/20 documented as of this encounter Additional Source Comments The information contained in this document represents components of the legal health record. It is not the complete legal health record.[facility]
--- OUTSIDE RECORDS SUMMARY | 2025-04-09 18:51 | XMS_ITS | Patient Health Record ---
Author Organization [facility] Address [address] [facility] [address] [place] [address] Care Team Providers Care Medical Secretary Name Role Phone Chase Ahn M.D Primary [...] W/U Status Risk Notes Problem Anxiety disorder ([id number]) Anxiety disorder, unspecified (F41.9) Active confirmed 10/14/21: Patient has undergone some life stressors due to his mother passing and his daughter going through rehab. Patient is accepting of the fact that he may be experiencing these symptoms because of his anxiety. Problem Paroxysmal atrial fibrillation (392463970) Paroxysmal atrial fibrillation (I48.0) Active confirmed 10/14/21: Patient has been taking amiodarone for his Afib and will undergo cardioversion as recommeneded by his hydraulic technician Problem Chronic systolic heart failure (648283180) Chronic systolic (congestive) heart failure (I50.22) Active confirmed 10/14/21: Stable not on any current medication Plan Of Treatment No Information Insurance Providers Payer Name Payer Address Payer Phone Subscriber Number Group Number Insured Name Patient Relationship to Insured Coverage Start Date Coverage End Date MEDICARE Part B- [facility] [address] [place] [phone] [id number] Eliazar Eldridge Self - patient is the insured [facility] [address] [address] [place] [address] [id number] Eliazar Eldridge Self - patient is the insured Medical (General) History Medical History History ICD Code Atrial Fibrillation Congestive Heart Failure Surgical History Surgery Date(Month/Year) Hernia repair 2020 Ablation for AFib 2021 Hospitalization History Reason Date(Month/Year) Rule out stroke 10/14
--- OUTSIDE RECORDS SUMMARY | 2025-04-09 18:51 | XMS_ITS | Encounter Summary ---
Author Organization [facility] Address [address] [place] [address] Care Team Providers Care Director Of Volunteer Services Name Role Phone Gerda Feldman MD Primary Care Provider Jaylen Amin MD Unavailable [phone] Robert Crockett MD Unavailable [phone] Osmel Huerta MD Unavailable [phone] Wil Deras MD Unavailable Encounter Details Date Type Department Care Team (Late st Contact Info) Description 05/22/2020 Scanned Document [address] [place] [address] Provider, Janett, [address] [place] [address] Social History Tobacco Use Types Packs/Day Years [...] on filedocumented in this encounter Care Teams Director Of Volunteer Services Relationship Specialty Start Date End Date Gerda Feldman MD [address] [place] [address] [address] PCP - General Internal Medicine 02/05/20 Jaylen Amin MD [address] [address] Tape Coater Cardiovascular Disease 02/05/20 Robert Crockett MD [address] [address] Physician Cardiac Electrophysiology 03/01/2004/29 Osmel Huerta MD [address] [place] [address] Dr Youssef [address] [place] [address] Surgery, General 09/04/20 Wil Deras MD [address] [place] [address] Cardiovascular Disease 04/30/21 documented as of this encounter
--- OUTSIDE RECORDS SUMMARY | 2025-04-09 18:51 | XMS_ITS | Encounter Summary ---
Author Organization [facility] Address [address] [place] [address] Care Team Providers Care Consulting Practice Manager Name Role Phone Gerda Feldman MD Primary Care Provider Jaylen Amin MD Unavailable [phone] Robert Crockett MD Unavailable [phone] Osmel Huerta MD Unavailable [phone] Wil Deras MD Unavailable Encounter Details Date Type Department Care Team (Late st Contact Info) Description 02/15/2020 Scanned Document [address] [place] [address] Provider, Janett, [address] [place] [address] Social History Tobacco Use Types Packs/Day Years [...] documented as of this encounter Care Teams Consulting Practice Manager Relationship Specialty Start Date End Date Gerda Feldman MD [address] [place] [address] Dr Youssef [address] [place] [address] PCP - General Internal Medicine 02/05/20 Jaylen Amin MD [address] [address] Gerontology Aide Cardiovascular Disease 02/05/20 Robert Crockett MD [address] [address] Physician Cardiac Electrophysiology 03/01/2004/29 Osmel Huerta MD [address] [place] [address] Dr Youssef [address] [place] [address] Surgery, General 09/04/20 Wil Deras MD [address] [place] [address] Cardiovascular Disease 04/30/21 documented as of this encounter
--- OUTSIDE RECORDS SUMMARY | 2025-04-09 18:51 | XMS_ITS | Clinical Summary ---
Author Organization [facility] Address [address] [place] [address] Care Team Providers Care Conciliator Name Role Phone Gerda Feldman MD Primary Care Provider Jaylen Amin MD Unavailable [phone] Osmel Huerta MD Unavailable [phone] Wil Deras MD Unavailable Allergies Active [...] Take 400 mcg by mouth daily. Active [place]-3 Fatty Acids (FISH OIL PO) Take by mouth daily. Active Active Problems Problem Noted Date Diagnosed Date Atrial flutter 02/03/2021 Overview (02/03/2021): Added automatically from request for surgery [id number] Persistent atrial fibrillation 05/07/2020 Tendon rupture, nontraumatic [...] & B MEDICARE PART A & [place] [address] [place] [address] Advance Directives * Full Code (Latest Code Status on File) Date Activated Date Inactivated Comments 03/16/2021 3:20 PM * Full Code Date Activated Date Inactivated Comments 05/07/2020 7:40 PM 03/16/2021 6:29 AM Care Teams Conciliator Relationship Specialty Start Date End Date Gerda Feldman MD [address] [place] [address] [place] [address] PCP - General Internal Medicine 02/05/20 Jaylen Amin MD [address] [place] [address] Analyst Cardiovascular Disease 02/05/20 Osmel Huerta MD [address] [place] [address] [place] [address] Surgery, General 09/04/20 Wil Deras MD [address] [place] [address] Cardiovascular Disease 04/30/21
--- OUTSIDE RECORDS SUMMARY | 2025-04-09 18:51 | XMS_ITS | Encounter Summary ---
Author Organization [facility] Address [address] [place] [address] Care Team Providers Care Child And Adolescent Psychologist Name Role Phone Gerda Feldman MD Primary Care Provider [phone] Jaylen Amin MD Unavailable Robert Crockett MD Unavailable [phone] Osmel Huerta MD Unavailable [phone] Wil Deras MD Unavailable Encounter Details Date Type Department Care Team (Late st Contact Info) Description 05/06/2020 Prep for Surgery [facility] [place] - Electrophysiology [address] [place] [address] [place] [address] Sophie Gtz, PLASTIC WELDER [address] [address] Social History Tobacco Use Types Packs/Day Years [...] documented as of this encounter Care Teams Child And Adolescent Psychologist Relationship Specialty Start Date End Date Gerda Feldman MD [address] [place] [address] Dr Youssef [address] [place] [address] [place] [address] PCP - General Internal Medicine 02/05/20 Jaylen Amin MD [address] [address] Oceanic Sciences Professor Cardiovascular Disease 02/05/20 Robert Crockett MD [address] [address] Physician Cardiac Electrophysiology 03/01/2004/29 Osmel Huerta MD [address] [place] [address] Dr Youssef [address] [place] [address] [place] [address] Surgery, General 09/04/20 Wil Deras MD [address] [place] [address] Cardiovascular Disease 04/30/21 documented as of this encounter
--- OUTSIDE RECORDS SUMMARY | 2025-04-09 18:51 | XMS_ITS | Encounter Summary ---
Author Organization [facility] Address [address] [place] [address] Care Team Providers Care Arc Welding Machine Operator Name Role Phone Gerda Feldman MD Primary Care Provider Jaylen Amin MD Unavailable Robert Crockett MD Unavailable [phone] Osmel Huerta MD Unavailable [phone] Wil Deras MD Unavailable Encounter Details Date Type Department Care Team (Late st Contact Info) Description 02/15/2020 Abstract [facility]- [address] [place] [phone] [address] Social History Tobacco Use Types Packs/Day Years [...] documented as of this encounter Care Teams Arc Welding Machine Operator Relationship Specialty Start Date End Date Gerda Feldman MD [address] [place] [address] Dr Youssef [address] [place] [address] PCP - General Internal Medicine 02/05/20 Jaylen Amin MD [address] [address] Gore Cutter Cardiovascular Disease 02/05/20 Robert Crockett MD [address] [address] Physician Cardiac Electrophysiology 03/01/2004/29 Osmel Huerta MD [address] [place] [address] Dr Youssef [address] [place] [address] Surgery, General 09/04/20 Wil Deras MD [address] [place] [address] Cardiovascular Disease 04/30/21 documented as of this encounter
--- OUTSIDE RECORDS SUMMARY | 2025-04-09 18:51 | XMS_ITS | Clinical Summary ---
Author Organization [facility] Address [address] [place] [address] Phone Care Team Providers Care Jack Spinner Name Role Phone Gerda Feldman MD Primary Care Provider [phone] Social History Tobacco Use Types Packs/Day Years [...] [place] PART A & [place] [id number] BLUE [employer]OSS MEDEX SUPPLEMENT MEDICARE PART A & B [employer] [place] MED[employer] SUPPLEMENT MEDICARE PART A & B [employer] CROSS MEDEX SUPPLEMENT MEDICARE PART A & B [employer] MEDEX SUPPLEMENT MEDICARE PART A & B [employer] CROSS MEDEX SUPPLEMENT MEDICARE PART A & B [employer] MEDEX SUPPLEMENT MEDICARE PART A & B [employer] MEDEX SUPPLEMENT MEDICARE PART A & B Saber Hacer MEDEX SUPPLEMENT MEDICARE PART A & B [employer] CROSS MEDEX SUPPLEMENT Care Teams Jack Spinner Relationship Specialty Start Date End Date Gerda Feldman MD [address] [place] [phone] PCP - General Internal Medicine 01/31/20 Additional Source Comments The information contained in this document represents components of the legal health record. It is not the complete legal health record.[facility]
--- OUTSIDE RECORDS SUMMARY | 2025-04-09 18:51 | XMS_ITS | Encounter Summary ---
Author Organization [facility] Address [address] [place] [address] Care Team Providers Care Hairspring Fabrication Supervisor Name Role Phone Gerda Feldman MD Primary Care Provider [phone] Jaylen Amin MD Unavailable [phone] Osmel Huerta MD Unavailable Wil Deras MD Unavailable Encounter Details Date Type Department Care Team (Late st Contact Info) Description 07/21/2021 Scanned Document [address] [phone] Provider, MD Janett [address] [place] [address] Social History Tobacco Use Types Packs/Day Years [...] on filedocumented in this encounter Care Teams Hairspring Fabrication Supervisor Relationship Specialty Start Date End Date Gerda Feldman MD [address] [place] [address] Dr Youssef [address] [place] [address] PCP - General Internal Medicine 02/05/20 Jaylen Amin MD [address] [place] [address] [address] [place] [address] Middle School Teacher Cardiovascular Disease 02/05/20 Osmel Huetra MD [address] [place] [address] Dr Youssef [address] [place] [address] Surgery, General 09/04/20 Wil Deras MD [address] [place] [address] Cardiovascular Disease 04/30/21 documented as of this encounter
--- OUTSIDE RECORDS SUMMARY | 2025-04-09 18:51 | XMS_ITS | Encounter Summary ---
Author Organization [facility] Address [address] [place] [address] Care Team Providers Care Utility Technician Name Role Phone Gerda Feldman MD Primary Care Provider Jaylen Amin MD Unavailable [phone] Robert Crockett MD Unavailable [phone] Osmel Huerta MD Unavailable [phone] Wil Deras MD Unavailable Encounter Details Date Type Department Care Team (Late st Contact Info) Description 02/18/2020 Scanned Document [address] [place] [address] Provider, Janett, [address] [place] [address] Social History Tobacco Use Types Packs/Day Years [...] documented as of this encounter Care Teams Utility Technician Relationship Specialty Start Date End Date Gerda Feldman MD [address] [place] [address] Dr Youssef [address] [place] [address] PCP - General Internal Medicine 02/05/20 Jaylen Amin MD [address] [address] Baffle Installer Cardiovascular Disease 02/05/20 Robert Crockett MD [address] [address] Physician Cardiac Electrophysiology 03/01/2004/29 Osmel Huerta MD [address] [place] [address] Dr Youssef [address] [place] [address] Surgery, General 09/04/20 Wil Deras MD [address] [place] [address] Cardiovascular Disease 04/30/21 documented as of this encounter
--- OUTSIDE RECORDS SUMMARY | 2025-04-09 18:51 | XMS_ITS | Data Portability ---
Author Organization [facility] - Misael ValdesMENA PRESTIGErishi s, [address] Address [address] [place] [address] Assessment No assessment recorded. Plan of Treatment Reminders Order Date Submit Date Provider Last Modified By Organization Details Last Modified Time Details Appointments None recorded. Lab None recorded. Referral otolaryngol ogist referral - feeling dizzy and vertigo especially waking upm in morning. need further evaluation and treatment. 2022 023 [email or web address] 26 Pratik Rivera MD, [address] [facility], [address], [place], [address], 3 12:51:32 Procedures None recorded. Surgeries None recorded. Imaging None recorded. Medication Orders meclizine 25 mg tablet 2022 023 [id number], [address] [place], [place], [id number], 3 19:15:43 Patient TargetsNo targets recorded. 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 Benign paroxysmal positional vertigo [...] Address Organization Details Recorded Time Essential hypertension 66474358 Active 2022 IRIS COUVERTIE R null, [place] - [facility] 3 18:23:37 Acute kidney injury 17894291 Active 2022 IRIS COUVERTIE R null, [place] - [facility] 3 18:26:17 Insomnia 118247623 Active 2022 IRIS COUVERTIE R null, PA [...] Name and Address Organization Details Recorded Time 733057 Substance with sulfonami de structure and antibacte rial mechanism of action (substanc e) medicatio n Not available Not available Not available 06/06/2022 62278 8003 SNOMED IRIS COUVERTIE R null, [place] - [facility] 3 18:21:58 490711 gabapenti n medicatio n dizziness Not available Not available 06/06/2022 65535 RxNorm IRIS COUVERTIE R null, [place] - [facility] 3 18:22:14 723135 rosuvasta tin medicatio n edema Not available Not available 06/06/2022 49358 2 RxNorm KRISHNA Muñoz bennett, [place] - [...] TABLETS BY MOUTH EVERY DAY DIRECTED BY [facility] 06/06 completed Not Available Not Available Not [...] Updated DateTime 3 187.96 cm 23.8 kg/m2 40098.5 9 g 100 % 66 /min 18 [...] ICD10 Code Diagnosis IMO Codes Diagnosis Note [id number] [address] [place] [address] 08/09/2016 14:01:54 08/09/2016 14:52:09 [id number] [address] [place] [address] 10/08/2019 14:19:37 10/08/2019 15:46:07 [id number] [address] [place] [address] 06/14/2020 09:23:40 06/14/2020 09:53:11 [id number] [address] [place] [address] 12/31/2018 10:08:17 12/31/2018 10:53:03 [id number] [address] [place] [address] 06/08/2016 13:08:05 06/08/2016 14:31:43 [id number] [address] [place] [address] 01/02/2020 17:09:44 01/02/2020 17:43:56 [id number] [address] [place] [address] 12/18/2019 15:16:32 12/18/2019 16:26:12 [id number] [address] [place] [address] 02/19/2016 13:00:02 02/19/2016 13:30:00 [id number] [address] [place] [address] 02/13/2016 15:03:43 02/13/2016 15:28:04 [id number] [address] [place] [address] 12/08/2017 08:46:06 12/08/2017 09:50:44 [id number] [address] [place] [address] 03/16/2020 15:48:34 03/16/2020 18:27:17 [id number] [address] [place] [address] 04/30/2020 13:25:07 04/30/2020 18:52:16 [id number] [facility] JAIMES [address] [place] [address] 06/06/2022 15:33:14 07/27/2022 19:27:19 Left without being seen [id number] 9102 Z53.21 [id number] Leroy Crandall [place] [address] [place] [address] 06/06/2022 17:13:56 06/06/2022 19:17:57 Benign paroxysmal positional vertigo [id number] H81.10 Health Concerns Section Related Observation LastModified by Organization Detai ls LastModified Time None Recorded Concern Status LastModified by Organization Details LastModified Time None Recorded Advance Directives Directive None Recorded Payers Insurance Date Sequence Insurance Name Policy Number Policy Shelby Covered Member ID Shelby Member ID Guarantor Name 06/06/2022 1 [place] [employer] Eliazar Quispe [id number] Eliazar Quispe 06/06/2022 2 [place] [id number] Eliazar Quispe [id number] Eliazar Quispe Notes Date Note Type [...] Crandall NP [address] [place], [address], [place] - [facility] 06/06/2022 19:16:09
== END 2025-04-09 15:53 | disposition home or self-care (01) ==
LOC: HO.HSMS 14:36
PROVIDERS: PCP Internal Medicine; Visit Provider Nurse Practitioner Family
DX: G47.33 Obstructive sleep apnea (adult) (pediatric) (principal); Z99.89 Dependence on other enabling machines and devices
CPT/HCPCS: 99213

== ENCOUNTER → 2025-04-09 14:35 | Outpatient (BNVA) | payer MEDICARE, SELFPAY | PROVIDERS: PCP Internal Medicine; Visit Provider Nurse Practitioner Family | DX: G47.33 Obstructive sleep apnea (adult) (pediatric) (principal); Z99.89 Dependence on other enabling machines and devices | CPT/HCPCS: 99212 ==

== ENCOUNTER 2025-04-15 14:29 | Outpatient (AMB) | payer MEDICARE, SELFPAY ==
[2025-04-15 14:33] VITALS: BP 110/52; PULSE 73; O2SAT 94; BMI 26.1
--- NOTE | 2025-04-15 14:33 | MHC.PC.OV ---
Vital Signs 04/15/25 14:33 Height 6 ft 2 in Weight 203 lb 2 oz BMI 26.1 BP 110/52 L Blood Pressure Location Lt brachial Position Sitting Pulse 73 Pulse Source Pulse Oximeter Pulse Oximetry (%) 94 Oxygen Delivery Method Room Air Intake Visit Reasons: KAREN, CAD Provider Network Analyst Required: No Accompanied by: Self / Same As Patient Allergies gabapentin Allergy (Severe, Verified 04/15/25 14:34) Dizziness atorvastatin Allergy (Intermediate, Verified 04/15/25 14:34) Muscle cramps rosuvastatin Allergy (Intermediate, Verified 04/15/25 14:34) Muscle cramps Sulfa (Sulfonamide Antibiotics) (SULFA(SULFONAMIDE ANTIBIOTICS)) Allergy (Mild, Verified 04/15/25 14:34) RASH metoprolol Adverse Reaction (Severe, Verified 04/15/25 14:34) Chest Pain, sob, dizziness amoxicillin Adverse Reaction (Mild, Verified 04/15/25 14:34) Rash Medication List - Last Reconciled 04/15/25 by Gerda Medley Po, albuterol sulfate 90 mcg/actuation (ProAir HFA) 2 puffs inhalation Q4H PRN alprazolam 0.5 mg PO DAILY PRN APAP Machine/Device As directed apixaban (Eliquis) 5 mg PO BID ascorbic acid (vitamin C) 1 g PO BID aspirin 81 mg PO DAILY cholecalciferol (vitamin D3) 25 mcg PO DAILY comp.stocking,thigh,long,large As directed 20-30 mm HG, black folic acid 1 mg PO DAILY loratadine 10 mg PO DAILY magnesium 200 mg PO DAILY triamcinolone acetonide 0.5% 1 appl topical BID turmeric mg PO Tobacco use date assessed: 04/15/25 Fall risk assessment: No Falls in past year Last assessed Fall Risk: 04/15/25 Dental Screening Dental Screen Date: 04/15/25 Did you have a dental visit in the last 12 months?: No Did you have a dental problem in the last 6 months where you did not have access to dental care?: No Was dental information given to patient?: No HPI KAREN, CAD HPI Details 75-year-old male with multiple medical problems patient has congestive heart failure history atrial fibrillation status post mitral valve repair atherosclerotic cardiovascular disease history of DVT obstructive sleep apnea chronic kidney disease hypercholesterolemia history of ascending aorta dilatation atrophic right kidney.Patient was last seen in September 2024.. Review of the notes patient had a nuclear medicine kidney imaging scan with Lasix showing right kidney 13.5% function and left kidney 86.5% of the total function. Patient did follow-up with cardiology in March 05 having the mitral regurgitation atrial fibrillation atypical flutter. Has had ablation as well as pulmonary vein isolation ablation in 2021 patient had severe mitral regurgitation so subsequently having cardiac catheterization and then mitral valve surgery. Patient did underwent pacemaker surgery. Patient has some statin intolerance. On CESILIA patient was noted to have a remnant of the left atrial appendage status post excision therefore patient is back on anticoagulation with Eliquis patient was advised to get an echocardiogram follow-up. Patient was also seen by Nephrology in November 2024 advised optimizing blood pressure keep and take more than the output as far as fluids or concern on low-potassium diet. Stable anemia will continue to monitor no need for erythropoietin replacement for the moment. 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 Atherosclerotic cardiovascular disease Normally functioning cardiac pacemaker present Acute kidney injury Generalized anxiety disorder Osteoarthritis of knees, bilateral Obstructive sleep apnea (adult) (pediatric) DVT (deep venous thrombosis) Nasal polyp Asthma Nonrheumatic mitral valve regurgitation Cardiomyopathy Cerebral infarction due to embolism of unspecified cerebral artery PVC (premature ventricular contraction) Anxiety Allergic rhinitis Insomnia Congestive heart failure Gastroesophageal reflux disease Impaired glucose tolerance Congestive heart failure Lupus anticoagulant positive Paroxysmal atrial fibrillation Hypercholesterolemia Surgical History H/O hernia repair Ventral hernia Status post mitral valve repair History of cardiac radiofrequency ablation (~03/16/21) Status post arthroscopy of left knee History of cardioversion (~01/17/20) S/P medial meniscectomy of left knee History of arthroscopy of left knee Hx of repair of right rotator cuff History of tonsillectomy Family History Father HTN (hypertension) CVA (cerebral vascular accident) Mother Skin cancer Maternal Uncle Colon cancer Son No problems noted. Daughter No problems noted. Family/Other Breast cancer Paternal Uncle Colon cancer Social History (Reviewed 04/15/25 @ 14:34 by JUAN Ball Housing: House Are you a primary career discovery teacher to a significant other at home: No Do you presently have visiting nurse or other home services: No Alcohol intake: never Patient Tobacco Use Status: Former Tobacco user Tobacco use type: Cigarette Years Smoked: 12 +/- e-Cigarette/Vaping Use: Never Used Second Hand Smoke Exposure: Yes service: No Current occupational status: retired Cognitive needs: No Hearing needs: No Vision needs: No Questionnaire PHQ-9 Over the last 2 weeks, how often have you been bothered by any of the following problems? 1. Little interest or pleasure in doing things: not at all 2. Feeling down, depressed, or hopeless: not at all 3. Trouble falling or staying asleep, or sleeping too much: several days 4. Feeling tired or having little energy: several days 5. Poor appetite or overeating: not at all 6. Feeling bad about yourself - or that you are a failure or have let yourself or your family down: not at all 7. Trouble concentrating on things, such as reading the newspaper or watching television: not at all 8. Moving or speaking so slowly that other people could have noticed. Or the opposite - being so fidgety or restless that you have been moving around a lot more than usual: not at all 9. Thoughts that you would be better off or of hurting yourself in some way: not at all Total score: 2 Source: Developed by Drs. Branden Michael, Sherry Solorio, Frederic Brown and colleagues, with an educational mary from [employer]. Thrive Questionnaire Date Thrive assessed: 04/15/25 I am a: Patient What is your living situation today?: I have a steady place to live Within the past 12 months, did the food you bought not last and you didn't have the money to get more?: I choose not to answer this question Within the past 12 months, did you worry whether your food would run out before you got money to buy more?: I choose not to answer this question Do you have trouble paying for medicines?: I choose not to answer this question Do you have trouble getting transportation to medical appointments?: I choose not to answer this question Do you have trouble paying your heating and electricity bill?: I choose not to answer this question Do you have trouble taking care of your child, family member or friend?: I choose not to answer this question Do you have trouble with day-to-day activities such as bathing, preparing meals, shopping, managing finances, etc.?: I choose not to answer this question Are you currently unemployed and looking for a job?: No Are you interested in more education?: I choose not to answer this question Please select the resources that you would like help with: None Currently or been in a relationship where the following occur: I choose not to answer THRIVE Score: 0 AUDIT C Alcohol Use Questionnaire (AUDIT-C) 1. How often do you have a drink containing alcohol?: Never 3. How often do you have six or more drinks on one occasion?: Never Total Score: 0 VAUGHN-7 AMB Questionnaire VAUGHN-7 Date VAUGHN - 7 assessed: 04/15/25 Feeling nervous, anxious, or on edge: 0 = Not at all Not being able to stop or control worryin = Not at all Worrying too much about different things: 0 = Not at all Trouble relaxin = Not at all Being so restless that it is hard to sit still: 0 = Not at all Becoming easily annoyed or irritable: 0 = Not at all Feeling afraid as if something awful might happen: 0 = Not at all Total VAUGHN-7 score (0-4 normal; 5-9 mild; 10-14 moderate; 15-21 severe): 0 Source: Developed by Drs. Branden Michael, Sherry Solorio, Frederic Brown and colleagues, with an educational mary from [employer]. Review of Systems Narrative Review of Systems Physical exam (Primary Care) Vital Signs: Last Vital Signs Pulse 73 04/15/25 14:33 BP 110/52 L 04/15/25 14:33 Pulse Ox 94 04/15/25 14:33 Oxygen Delivery Method Room Air 04/15/25 14:33 BMI result Body Mass Index 26.1 Tobacco/Smoking Status: Tobacco use Status Tobacco use date assessed 04/15/25 04/15/25 14:38 Patient Tobacco Use Status Former Tobacco user 04/15/25 14:38 Tobacco use type Cigarette 04/15/25 14:38 e-Cigarette/Vaping Use Never Used 04/15/25 14:38 PHQ-9: PHQ-9 Score PHQ-9: Total score 2 04/15/25 15:17 Thrive Assessment: Date of Thrive Assessment Date Thrive assessed 04/15/25 04/15/25 14:38 Currently or been in a relationship where the following occur: I choose not to answer Narrative Physical Exam Const General: alert; No acute distress Eyes Conjunctivae: conjunctivae normal Resp Auscultation: clear to auscultation bilaterally Cardio Rate: regular rate Rhythm: regular rhythm GI Inspection: Yes normal to inspection Extrem General: Yes normal to inspection and No edema Coding Level of Care Code Est Pt Level 4 (68783) Add On Problem Visit Only Diagnoses Atherosclerotic cardiovascular disease I25.10 Paroxysmal atrial fibrillation I48.0 Hypercholesterolemia E78.00 Chronic systolic congestive heart failure I50.22 Heart failure chronicity: chronic Heart failure type: systolic Cardiomyopathy, unspecified type I42.9 Cardiomyopathy type: unspecified CKD (chronic kidney disease) stage 4, GFR 15-29 ml/min N18.4 Atrophic kidney, acquired N26.1 KAREN on CPAP G47.33; Z99.89 Frequency of micturition R35.0 Eczema, unspecified type L30.9 Eczema type: unspecified Assessment & Plan Assessment & Plan (1) Atherosclerotic cardiovascular disease: Code(s): I25.10 - Atherosclerotic heart disease of ramona coronary artery without angina pectoris Category: Medical Plan: Control the cholesterol, weight, blood pressure, diabetes patient on anticoagulation with Eliquis twice a day year blood work requested. 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 Be it pork or beef they have a lot of cholesterol statin intolerant and can not take Zetia (4) Congestive heart failure: Comment: discussed about monitoring the weight and that torsemide can be used to help take out the fluid to help with the breathing Code(s): I50.9 - Heart failure, unspecified Category: Medical Qualifiers: Heart failure chronicity: chronic Heart failure type: systolic Qualified Code(s): I50.22 - Chronic systolic (congestive) heart failure Plan: Continue to weigh self daily and continue to monitor (5) Cardiomyopathy: Code(s): I42.9 - Cardiomyopathy, unspecified Category: Medical Qualifiers: Cardiomyopathy type: unspecified Qualified Code(s): I42.9 - Cardiomyopathy, unspecified Plan: Echocardiogram requested by Cardiology (6) CKD (chronic kidney disease) stage 4, GFR 15-29 ml/min: Code(s): N18.4 - Chronic kidney disease, stage 4 (severe) Category: Medical Plan: Keep well hydrated, avoid NSAIDs continue to follow-up with Nephrology (7) Atrophic kidney, acquired: Code(s): N26.1 - Atrophy of kidney (terminal) Category: Medical Plan: Continuing to monitor (8) KAREN on CPAP: Code(s): G47.33 - Obstructive sleep apnea (adult) (pediatric); Z99.89 - Dependence on other enabling machines and devices Category: Medical Plan: Patient follows up with urology and continue to use the CPAP more than 4 hours a night and benefits from this (9) Frequency of micturition: Code(s): R35.0 - Frequency of micturition Category: Medical Plan: Will order for an ultrasound of the bladder (10) Eczema: Comment: bilateral legs Code(s): L30.9 - Dermatitis, unspecified Category: Medical Qualifiers: Eczema type: unspecified Qualified Code(s): L30.9 - Dermatitis, unspecified Plan: Triamcinolone prescription sent in. As well as dermatology referral Plan Plan Patient was informed and verbally consented to the use of an ambient scribe for clinic note documentation during this visit. Discussion Notes Patient Instructions Orders: Orders Magnesium Today R35.0 - Frequency of micturition Ferritin Today R35.0 - Frequency of micturition US bladder Today R35.0 - Frequency of micturition Complete Blood Count Auto Diff Today R35.0 - Frequency of micturition Comprehensive Met. Panel Today R35.0 - Frequency of micturition Thyroid Stimulating Hormone Today R35.0 - Frequency of micturition Free T4 (Free Thyroxine) Today R35.0 - Frequency of micturition Reticulocyte Count Today R35.0 - Frequency of micturition IRON PROFILE Today R35.0 - Frequency of micturition Vitamin B12 and Folate Today R35.0 - Frequency of micturition Referrals Dermatology Referral L30.9 - Dermatitis, unspecified Medications: New triamcinolone acetonide 0.5% 1 appl topical BID 30 grams 0RF L30.9 - Dermatitis, unspecified magnesium 200 mg PO DAILY 20 tabs 0RF L30.9 - Dermatitis, unspecified Refilled alprazolam 0.5 mg PO DAILY PRN 20 tabs 0RF anxiety F41.9 - Anxiety disorder, unspecified
--- OUTSIDE RECORDS SUMMARY | 2025-04-15 17:55 | XMS_ITS | Clinical Summary ---
Author Organization [facility] Address [address] [place] [address] Phone Care Team Providers Care Mammalogy Teacher Name Role Phone Gerda Feldman MD Primary Care Provider [phone] Allergies Active Allergy Reactions Criticality Noted Date [...] (11/05/2021): Added automatically from request for surgery [id number] Non-traumatic tendon rupture 01/24/2020 11/05/2021 Overview (11/05/2021): [...] [facility] Medicare [facility] Care Teams Mammalogy Teacher Relationship Specialty Start Date End Date Gerda Feldman MD [facility] IN [address] [place], [place] PCP - General Internal Medicine 10/21/21
--- OUTSIDE RECORDS SUMMARY | 2025-04-15 17:55 | XMS_ITS | Encounter Summary ---
Author Organization [facility] Address [address] [place] [address] Care Team Providers Care Increment Manager Name Role Phone Gerda Feldman MD Primary Care Provider [phone] Jaylen Amin MD Unavailable [phone] Robert Crockett MD Unavailable [phone] Osmel Huerta MD Unavailable [phone] Wil Deras MD Unavailable Encounter Details Date Type Department Care Team (Late st Contact Info) Description 05/06/2020 Prep for Surgery [facility] Heart & Vascular [place] - Electrophysiology [address] [place] [address] [place] [address] Sophie Gtz, INFORMATION SERVICES TECH [address] [address] Social History Tobacco Use Types Packs/Day Years [...] documented as of this encounter Care Teams Increment Manager Relationship Specialty Start Date End Date Gerda Feldman MD [address] [place] [address] Dr Youssef [address] [place] [address] [place] [address] PCP - General Internal Medicine 02/05/20 Jaylen Amin MD [address] [address] Kindergarten Aide Cardiovascular Disease 02/05/20 Robert Crockett MD [address] [address] Physician Cardiac Electrophysiology 03/01/2004/29 Osmel Huerta MD [address] [place] [address] Dr Youssef [address] [place] [address] [place] [address] Surgery, General 09/04/20 Wil Deras MD [address] [place] [address] Cardiovascular Disease 04/30/21 documented as of this encounter
--- OUTSIDE RECORDS SUMMARY | 2025-04-15 17:55 | XMS_ITS | Clinical Summary ---
Author Organization [facility] Address [address] [place] [address] Care Team Providers Care Occupational Health And Safety Officer Name Role Phone Gerda Feldman MD Primary Care Provider Jaylen Amin MD Unavailable Osmel Huerta MD Unavailable [phone] Wil Deras MD Unavailable Allergies Active [...] Take 400 mcg by mouth daily. Active [place]-3 Fatty Acids (FISH OIL PO) Take by mouth daily. Active Active Problems Problem Noted Date Diagnosed Date Atrial flutter 02/03/2021 Overview (02/03/2021): Added automatically from request for surgery [id number] Persistent atrial fibrillation 05/07/2020 Tendon rupture, nontraumatic [...] & B MEDICARE PART A & [place] [address] [place] [address] Advance Directives * Full Code (Latest Code Status on File) Date Activated Date Inactivated Comments 03/16/2021 3:20 PM * Full Code Date Activated Date Inactivated Comments 05/07/2020 7:40 PM 03/16/2021 6:29 AM Care Teams Occupational Health And Safety Officer Relationship Specialty Start Date End Date Gerda Feldman MD [address] [place] [address] [place] [address] PCP - General Internal Medicine 02/05/20 Jaylen Amin MD [address] [place] [address] Net Developer Architect Cardiovascular Disease 02/05/20 Osmel Huerta MD [address] [place] [address] [address] [place] [place] [address] Surgery, General 09/04/20 Wil Deras MD [address] [place] [address] Cardiovascular Disease 04/30/21
--- OUTSIDE RECORDS SUMMARY | 2025-04-15 17:55 | XMS_ITS | Clinical Summary ---
Author Organization [facility] [place] [address] Phone Care Team Providers Care Milling Machine Operator Gear Name Role Phone Physician, No Pcp Primary [...] History Medical History Date Comments Atrial fibrillation ([facility] V24, [facility] V28) CHF (congestive heart failure) ([facility] V24, [facility] V28) CVA (cerebral vascular accident) ([facility] V24, [facility] [place] V28) Social History Tobacco [...] age to complete this topic Insurance MEDICARE [facility]) Care Teams Milling Machine Operator Gear Relationship Specialty Start Date End Date Physician, No Pcp PCP - General 10/12/21
--- OUTSIDE RECORDS SUMMARY | 2025-04-15 17:55 | XMS_ITS | Data Portability ---
Author Organization [facility] [employer] s, [address] Address [address] [place] [address] Assessment No assessment recorded. Plan of Treatment Reminders Order Date Submit Date Provider Last Modified By Organization Details Last Modified Time Details Appointments None recorded. Lab None recorded. Referral otolaryngol ogist referral - feeling dizzy and vertigo especially waking upm in morning. need further evaluation and treatment. 2022 023 [email or web address] 26 Pratik Rivera MD, 100 [facility], [facility] 100, [place], [address], 3 12:51:32 Procedures None recorded. Surgeries None recorded. Imaging None recorded. Medication Orders meclizine 25 mg tablet 2022 023 [id number], [address] [place], [place], [id number], 3 19:15:43 Patient TargetsNo targets recorded. Patient Instructions Encounter Date Encounter Id Patient Instructions Last Modified By Organization Details Last Modified Time 06/06/2022 [id number] dizziness: care instructions Not available 06/06/2022 19:14:50 [...] Not available 06/06/2022 19:14:49 Reason for Referral Check Services Clerk Referral fo r Benign paroxysmal positional vertigo [...] Address Organization Details Recorded Time Essential hypertension 51279859 Active 2022 IRIS COUVERTIE R null, [place] - [facility] 3 18:23:37 Acute kidney injury 00744495 Active 2022 IRIS COUVERTIE R null, [place] - [facility] 3 18:26:17 Insomnia 710702792 Active 2022 IRIS COUVERTIE R null, PA [...] Name and Address Organization Details Recorded Time 683860 Substance with sulfonami de structure and antibacte rial mechanism of action (substanc e) medicatio n Not available Not available Not available 06/06/2022 06773 8003 SNOMED IRIS COUVERTIE R null, [place] - [facility] 3 18:21:58 675665 gabapenti n medicatio n dizziness Not available Not available 06/06/2022 30669 RxNorm IRIS COUVERTIE R null, [place] - [facility] 3 18:22:14 059143 rosuvasta tin medicatio n edema Not available Not available 06/06/2022 42919 2 RxNorm KRISHNA Muñoz bennett, [place] - [...] TABLETS BY MOUTH EVERY DAY DIRECTED BY [facility] 06/06 completed Not Available Not Available [...] Updated DateTime 3 187.96 cm 23.8 kg/m2 81396.5 9 g 100 % 66 /min 18 [...] ICD10 Code Diagnosis IMO Codes Diagnosis Note [id number] [address] [place] [address] 08/09/2016 14:01:54 08/09/2016 14:52:09 [id number] [address] [place] [address] 10/08/2019 14:19:37 10/08/2019 15:46:07 [id number] [address] [place] [address] 06/14/2020 09:23:40 06/14/2020 09:53:11 [id number] [address] [place] [address] 12/31/2018 10:08:17 12/31/2018 10:53:03 [id number] [address] [place] [address] 06/08/2016 13:08:05 06/08/2016 14:31:43 [id number] [address] [place] [address] 01/02/2020 17:09:44 01/02/2020 17:43:56 [id number] [address] [place] [address] 12/18/2019 15:16:32 12/18/2019 16:26:12 [id number] [address] [place] [address] 02/19/2016 13:00:02 02/19/2016 13:30:00 [id number] [address] [place] [address] 02/13/2016 15:03:43 02/13/2016 15:28:04 [id number] [address] [place] [address] 12/08/2017 08:46:06 12/08/2017 09:50:44 [id number] [address] [place] [address] 03/16/2020 15:48:34 03/16/2020 18:27:17 [id number] [address] [place] [address] 04/30/2020 13:25:07 04/30/2020 18:52:16 [id number] [facility] JAIMES [address] [place] [address] 06/06/2022 15:33:14 07/27/2022 19:27:19 Left without being seen [id number] 9102 Z53.21 [id number] Leroy Crandall [place] [address] [place] [address] 06/06/2022 17:13:56 06/06/2022 19:17:57 Benign paroxysmal positional vertigo 666084486 H81.10 Health Concerns Section Related Observation LastModified by Organization Detai ls LastModified Time None Recorded Concern Status LastModified by Organization Details LastModified Time None Recorded Advance Directives Directive None Recorded Payers Insurance Date Sequence Insurance Name Policy Number Policy Shelby Covered Member ID Shelby Member ID Guarantor Name 06/06/2022 1 [place] [employer] Eliazar Quispe [id number] Eliazar Quispe 06/06/2022 2 [place] [id number] Eliazar Quispe [id number] Eliazar Quispe Notes Date Note Type [...] Crandall NP [address] [place], [address], [place] - [facility] 06/06/2022 19:16:09
--- OUTSIDE RECORDS SUMMARY | 2025-04-15 17:55 | XMS_ITS | Encounter Summary ---
Author Organization [facility] Address [address] [place] [address] Care Team Providers Care House Rn Name Role Phone Gerda Feldman MD Primary Care Provider Jaylen Amin MD Unavailable [phone] Robert Crockett MD Unavailable [phone] Osmel Huerta MD Unavailable [phone] Wil Deras MD Unavailable Encounter Details Date Type Department Care Team (Late st Contact Info) Description 02/15/2020 Scanned Document [address] [place] [address] Provider, Janett, [address] [place] [address] Social History Tobacco Use Types Packs/Day Years [...] documented as of this encounter Care Teams House Rn Relationship Specialty Start Date End Date Gerda Feldman MD [address] [place] [address] Dr Youssef [address] [place] [address] PCP - General Internal Medicine 02/05/20 Jaylen Amin MD [address] [address] Collet Driller Cardiovascular Disease 02/05/20 Robert Crockett MD [address] [address] Physician Cardiac Electrophysiology 03/01/2004/29 Osmel Huerta MD [address] [place] [address] Dr Youssef [address] [place] [address] Surgery, General 09/04/20 Wil Deras MD [address] [place] [address] Cardiovascular Disease 04/30/21 documented as of this encounter
--- OUTSIDE RECORDS SUMMARY | 2025-04-15 17:55 | XMS_ITS | Encounter Summary ---
Author Organization [facility] Address [address] [facility] [address] [place] [address] Phone Care Team Providers Care Photoresist Contact Printer Name Role Phone Gerda Feldman MD Primary Care Provider [phone] Reason for Referral * Consultation (Within 1 month) - Closed Specialty Diagnoses / Procedures Referred By Tyler childress Referred To Contact [facility] [address], [address] Floor, [address] [place] [address] Phone: tel: fax: [facility] [id number] Referral ID Status Reason Start Date Expiration Date Visits Re quested Visits Authorized [id number] Closed 02/01/2020 01/31/2021 1 1 Electronically signed by [facility] Admitting, Provider at 02/01/2020 1:36 PM EDT Encounter Details Date Type Department Care Team (Late st Contact Info) Description 02/01/2020 Transcribe Orders [facility] [address], [address] [place] [address] Unknown, Unknown, Social History Tobacco Use Types [...] Associated Diagnoses Order Schedule Ambulatory referral to [facility] Outpatient Referral Routine Ordered: 02/01/2020 documented as of this encounter Visit Diagnoses Not on filedocumented in this encounter Care Teams Photoresist Contact Printer Relationship Specialty Start Date End Date Gerda Feldman MD [address] [place] [address] [address] [place] [address] PCP - General Internal Medicine 01/31/20 documented as of this encounter Additional Source Comments The information contained in this document represents components of the legal health record. It is not the complete legal health record.[facility]
--- OUTSIDE RECORDS SUMMARY | 2025-04-15 17:55 | XMS_ITS | Encounter Summary ---
Author Organization [facility] Address [address] [place] [address] Care Team Providers Care Insurance Associate Name Role Phone Gerda Feldman MD Primary Care Provider Jaylen Amin MD Unavailable Robert Crockett MD Unavailable [phone] Osmel Huerta MD Unavailable [phone] Wil Deras MD Unavailable Encounter Details Date Type Department Care Team (Late st Contact Info) Description 02/18/2020 Scanned Document [address] [place] [address] Provider, Janett, [address] [place] [address] Social History Tobacco Use Types Packs/Day Years [...] documented as of this encounter Care Teams Insurance Associate Relationship Specialty Start Date End Date Gerda Feldman MD [address] [place] [address] Dr Youssef [address] [place] [address] PCP - General Internal Medicine 02/05/20 Jaylen Amin MD [address] [address] Parachute Rigger Cardiovascular Disease 02/05/20 Robert Crockett MD [address] [address] Physician Cardiac Electrophysiology 03/01/2004/29 Osmel Huerta MD [address] [place] [address] Dr Youssef [address] [place] [address] Surgery, General 09/04/20 Wil Deras MD [address] [place] [address] Cardiovascular Disease 04/30/21 documented as of this encounter
--- OUTSIDE RECORDS SUMMARY | 2025-04-15 17:55 | XMS_ITS | Encounter Summary ---
Author Organization [facility] Address [address] [place] [address] Care Team Providers Care Tint Layer Name Role Phone Gerda Feldman MD Primary Care Provider Jaylen Amin MD Unavailable Robert Crockett MD Unavailable [phone] Osmel Huerta MD Unavailable [phone] Wil Deras MD Unavailable Encounter Details Date Type Department Care Team (Late st Contact Info) Description 02/15/2020 Scanned Document [address] [place] [address] Provider, Janett, [address] [place] [address] Social History Tobacco Use Types Packs/Day Years [...] documented as of this encounter Care Teams Tint Layer Relationship Specialty Start Date End Date Gerda Feldman MD [address] [place] [address] Dr Youssef [address] [place] [address] PCP - General Internal Medicine 02/05/20 Jaylen Amin MD [address] [address] Battery Charger Conveyor Line Cardiovascular Disease 02/05/20 Robert Crockett MD [address] [address] Physician Cardiac Electrophysiology 03/01/2004/29 Osmel Huerta MD [address] [place] [address] Dr Youssef [address] [place] [address] Surgery, General 09/04/20 Wil Deras MD [address] [place] [address] Cardiovascular Disease 04/30/21 documented as of this encounter
--- OUTSIDE RECORDS SUMMARY | 2025-04-15 17:55 | XMS_ITS | Clinical Summary ---
Author Organization [facility] Address [address] [place] [address] Phone Care Team Providers Care Mass Spectrometry Manager Name Role Phone Gerda Feldman MD Primary Care Provider [phone] Social History Tobacco Use Types Packs/Day Years [...] [place] [address] [employer] MEDEX SUPPLEMENT MEDICARE PART A & B Orad BOQUERON MEDEX SUPPLEMENT MEDICARE PART A & B Orad CROSS MEDEX SUPPLEMENT MEDICARE PART A & B [place] MED[employer] SUPPLEMENT MEDICARE PART A & B Orad CROSS MEDEX SUPPLEMENT MEDICARE PART A & B [place] MED[employer] SUPPLEMENT MEDICARE PART A & B [place] MED[employer] SUPPLEMENT MEDICARE PART A & B [place] MEDEX SUPPLEMENT MEDICARE PART A & B Orad CROSS MEDEX SUPPLEMENT Care Teams Mass Spectrometry Manager Relationship Specialty Start Date End Date Gerda Feldman MD [address] [facility] [address] [place] [address] PCP - General Internal Medicine 01/31/20 Additional Source Comments The information contained in this document represents components of the legal health record. It is not the complete legal health record.[facility]
--- OUTSIDE RECORDS SUMMARY | 2025-04-15 17:55 | XMS_ITS | Encounter Summary ---
Author Organization [facility] Address [address] [place] [address] Care Team Providers Care Cemetery Vault Installer Name Role Phone Gerda Feldman MD Primary Care Provider Jaylen Amin MD Unavailable Robert Crockett MD Unavailable [phone] Osmel Huerta MD Unavailable [phone] Wil Deras MD Unavailable Encounter Details Date Type Department Care Team (Late st Contact Info) Description 05/22/2020 Scanned Document [address] [place] [address] Provider, Janett, [address] [place] [address] Social History Tobacco Use Types Packs/Day Years [...] on filedocumented in this encounter Care Teams Cemetery Vault Installer Relationship Specialty Start Date End Date Gerda Feldman MD [address] [place] [address] [address] PCP - General Internal Medicine 02/05/20 Jaylen Amin MD [address] [address] Staff Midwife/Apprenticeship Director Cardiovascular Disease 02/05/20 Robert Crockett MD [address] [address] Physician Cardiac Electrophysiology 03/01/2004/29 Osmel Huerta MD [address] [place] [address] Dr Youssef [address] [place] [address] Surgery, General 09/04/20 Wil Deras MD [address] [place] [address] Cardiovascular Disease 04/30/21 documented as of this encounter
--- OUTSIDE RECORDS SUMMARY | 2025-04-15 17:55 | XMS_ITS | Encounter Summary ---
Author Organization [facility] Address [address] [place] [address] Care Team Providers Care Patient Assessment Coordinator Name Role Phone Gerda Feldman MD Primary Care Provider Jaylen Amin MD Unavailable [phone] Osmel Huerta MD Unavailable [phone] Wil Deras MD Unavailable Encounter Details Date Type Department Care Team (Late st Contact Info) Description 07/21/2021 Scanned Document [address] [address] Provider, [place] Janett [address] [place] [address] Social History Tobacco Use Types Packs/Day Years [...] on filedocumented in this encounter Care Teams Patient Assessment Coordinator Relationship Specialty Start Date End Date Gerda Feldman MD [address] [place] [address] Dr Youssef [address] [place] [address] PCP - General Internal Medicine 02/05/20 Jaylen Amin MD [address] [place] [address] [address] [place] [address] Individual Small Group Instructor Cardiovascular Disease 02/05/20 Osmel Huerta MD [address] [place] [address] Dr Youssef [address] [place] [address] Surgery, General 09/04/20 Wil Deras MD [address] [place] [address] Cardiovascular Disease 04/30/21 documented as of this encounter
--- OUTSIDE RECORDS SUMMARY | 2025-04-15 17:55 | XMS_ITS | Encounter Summary ---
Author Organization [facility] Address [address] [place] [address] Care Team Providers Care Direct Support Staff Name Role Phone Gerda Feldman MD Primary Care Provider Jaylen Amin MD Unavailable Robert Crockett MD Unavailable [phone] Osmel Huerta MD Unavailable [phone] Wil Deras MD Unavailable Encounter Details Date Type Department Care Team (Late st Contact Info) Description 09/05/2020 Scanned Document [address] [place] [address] Provider, Janett, [address] [place] [address] Social History Tobacco Use Types Packs/Day Years [...] on filedocumented in this encounter Care Teams Direct Support Staff Relationship Specialty Start Date End Date Gerda Feldman MD [address] [place] [address] Dr Youssef [address] [place] [address] PCP - General Internal Medicine 02/05/20 Jaylen Amin MD [address] [address] Well Puller Cardiovascular Disease 02/05/20 Robert Crockett MD [address] [address] Physician Cardiac Electrophysiology 03/01/2004/29 Osmel Huerta MD [address] [place] [address] Dr Youssef [address] [place] [address] Surgery, General 09/04/20 Wil Deras MD [address] [place] [address] Cardiovascular Disease 04/30/21 documented as of this encounter
--- OUTSIDE RECORDS SUMMARY | 2025-04-15 17:55 | XMS_ITS | Patient Health Record ---
Author Organization [facility] Address [address] [facility] [address] [place] [address] Care Team Providers Care Staff Research Scientist Name Role Phone Chase Ahn M.D Primary [...] Problem Status W/U Status Risk Notes Problem Paroxysmal atrial fibrillation (536324480) Paroxysmal atrial fibrillation (I48.0) Active confirmed 10/14/21: Patient has been taking amiodarone for his Afib and will undergo cardioversion as recommeneded by his mortgage counselor Problem Chronic systolic heart failure (273330048) Chronic systolic (congestive) heart failure (I50.22) Active confirmed 10/14/21: Stable not on any current medication Problem Anxiety disorder (827116919) Anxiety disorder, unspecified (F41.9) Active confirmed 10/14/21: Patient has undergone some life stressors due to his mother passing and his daughter going through rehab. Patient is accepting of the fact that he may be experiencing these symptoms because of his anxiety. Plan Of Treatment No Information Insurance Providers Payer Name Payer Address Payer Phone Subscriber Number Group Number Insured Name Patient Relationship to Insured Coverage Start Date Coverage End Date MEDICARE Part B- [facility] [address] [place] [phone] [id number] Eliazar Eldridge Self - patient is the insured [facility] [address] [address] [place] [address] [id number] Eliazar Eldridge Self - patient is the insured Medical (General) History Medical History History ICD Code Atrial Fibrillation Congestive Heart Failure Surgical History Surgery Date(Month/Year) Hernia repair 2020 Ablation for AFib 2021 Hospitalization History Reason Date(Month/Year) Rule out stroke 10/14
--- OUTSIDE RECORDS SUMMARY | 2025-04-15 17:55 | XMS_ITS | Encounter Summary ---
Author Organization [facility] Address [address] [place] [address] Care Team Providers Care Dry Cleaning Teacher Name Role Phone Gerda Feldman MD Primary Care Provider Jaylen Amin MD Unavailable Robert Crockett MD Unavailable [phone] Osmel Huerta MD Unavailable [phone] Wil Deras MD Unavailable Encounter Details Date Type Department Care Team (Late st Contact Info) Description 02/21/2020 Scanned Document [address] [place] [address] Provider, Janett, [address] [place] [address] Social History Tobacco Use Types Packs/Day Years [...] documented as of this encounter Care Teams Dry Cleaning Teacher Relationship Specialty Start Date End Date Gerda Feldman MD [address] [place] [address] Dr Yousse[address] [place] [address] PCP - General Internal Medicine 02/05/20 Jaylen Amin MD [address] [address] Technologist Development Cardiovascular Disease 02/05/20 Robert Crockett MD [address] [address] Physician Cardiac Electrophysiology 03/01/2004/29 Osmel Huerta MD [address] [place] [address] Dr Youssef [address] [place] [address] Surgery, General 09/04/20 Wil Deras MD [address] [place] [address] Cardiovascular Disease 04/30/21 documented as of this encounter
--- OUTSIDE RECORDS SUMMARY | 2025-04-15 17:55 | XMS_ITS | Encounter Summary ---
Author Organization [facility] Address [address] [place] [address] Care Team Providers Care Timing Adjuster Name Role Phone Gerda Feldman MD Primary Care Provider Jaylen Amin MD Unavailable Robert Crockett MD Unavailable [phone] Osmel Huerta MD Unavailable [phone] Wil Deras MD Unavailable Encounter Details Date Type Department Care Team (Late st Contact Info) Description 02/15/2020 Abstract [facility]- [address] [place] [phone] [address] Social History Tobacco Use Types Packs/Day Years [...] documented as of this encounter Care Teams Timing Adjuster Relationship Specialty Start Date End Date Gerda Feldman MD [address] [place] [address] Dr Youssef [address] [place] [address] PCP - General Internal Medicine 02/05/20 Jaylen Amin MD [address] [address] Podiatric Medicine Doctor Cardiovascular Disease 02/05/20 Robert Crockett MD [address] [address] Physician Cardiac Electrophysiology 03/01/2004/29 Osmel Huerta MD [address] [place] [address] Dr Youssef [address] [place] [address] Surgery, General 09/04/20 Wil Deras MD [address] [place] [address] Cardiovascular Disease 04/30/21 documented as of this encounter
== END 2025-04-15 15:41 | disposition home or self-care (01) ==
LOC: HO.HMCH 14:30
PROVIDERS: PCP Internal Medicine; Visit Provider Internal Medicine
DX: I25.10 Atherosclerotic heart disease of native coronary artery without angina pectoris (principal); I48.0 Paroxysmal atrial fibrillation; E78.00 Pure hypercholesterolemia, unspecified; I50.22 Chronic systolic (congestive) heart failure; I42.9 Cardiomyopathy, unspecified; N18.4 Chronic kidney disease, stage 4 (severe); N26.1 Atrophy of kidney (terminal); G47.33 Obstructive sleep apnea (adult) (pediatric); Z99.89 Dependence on other enabling machines and devices; R35.0 Frequency of micturition; L30.9 Dermatitis, unspecified

== ENCOUNTER → 2025-04-15 14:29 | Outpatient (BNVA) | payer MEDICARE, SELFPAY | PROVIDERS: PCP Internal Medicine; Visit Provider Internal Medicine | DX: I25.10 Atherosclerotic heart disease of native coronary artery without angina pectoris (principal); I48.0 Paroxysmal atrial fibrillation; E78.00 Pure hypercholesterolemia, unspecified; I50.22 Chronic systolic (congestive) heart failure; I42.9 Cardiomyopathy, unspecified; N18.4 Chronic kidney disease, stage 4 (severe); N26.1 Atrophy of kidney (terminal); G47.33 Obstructive sleep apnea (adult) (pediatric); R35.0 Frequency of micturition; L30.9 Dermatitis, unspecified; Z99.89 Dependence on other enabling machines and devices; Z13.31 Encounter for screening for depression; Z13.39 Encounter for screening examination for other mental health and behavioral disorders; Z79.899 Other long term (current) drug therapy | CPT/HCPCS: 96127; 99212 ==

== ENCOUNTER → 2025-04-24 14:40 | Outpatient (REF) | payer MEDICARE, SELFPAY ==
--- NOTE | 2025-04-24 14:45 | CA_ITS ---
Transthoracic Echocardiogram Patient (Last, First, Middle): Eliazar Quispe F Gender: M Date of : 1950 Age: 75 Procedure Date: 04/24/2025 Procedure Type: Transthoracic Echocardiogram Location: OP Height: 187.96 cm Weight: 90.72 kg BSA: 2.17 m2 Heart Rate: 73 bpm BP: 132 / 72 mmHg Vacation Guide: SB Referring MD: Jaylen Amin MD Symptoms: Z98.890 - Other specified postprocedural states Study Quality: Adequate ECG Rhythm: Sinus Conclusions: - The left ventricular systolic function is normal. The calculated ejection fraction is 66% by biplane method. - s/p mitral valve repair with mild regurgitation. - There is mild dilatation of the ascending aorta measuring 4.10 cm. Findings Left Ventricle Normal left ventricular cavity size. There is normal left ventricular wall thickness. The left ventricular systolic function is normal. The calculated ejection fraction is 66% by biplane method. There is no evidence of regional wall motion abnormalities. Diastolic function is indeterminate on the basis of available data. Right Ventricle Mildly increased right ventricular cavity size. There is normal right ventricular systolic function. There is a pacemaker wire seen in the right ventricle. Atria Both atria are normal in size. Aortic Valve There is a normal trileaflet aortic valve. There is no aortic valve stenosis. There is no aortic valve regurgitation. Mitral Valve There is mild mitral annular calcification. There is mild mitral valve regurgitation. There is no mitral valve stenosis. s/p repair. Pulmonic Valve The pulmonic valve is likely normal. Tricuspid Valve There is mild tricuspid valve regurgitation. Borderline RVSP. Great Vessels The aortic arch is normal in size. There is mild dilatation of the ascending aorta measuring 4.10 cm. Venous The inferior vena cava is normal in size and collapses greater than 50% with inspiration. Pericardium/Pleural There is no evidence of pericardial effusion. Prior Study Comparison No significant change compared to prior study dated: 04/13/2024. Measurements 2D Linear Measurements IVSd: 1.01 0.6-0.9/0.6-1.0 cm LVIDd: 5.50 3.9-5.3/4.2-5.9 cm LVIDd Index: 2.53 2.4-3.2/2.2-3.1 cm/m2 LVIDs: 3.40 2.0-3.6 cm LVPWd: 0.71 0.7-1.1 cm LA Diam: 4.10 2.7-3.8/3.0-4.0 cm LAIDs Index: 1.89 1.5-2.3 cm/m2 LV Mass: 218.88 67-162/88-224 g LV Mass Index: 100.87 43-95/49-115 g/m2 LVOT Diam: 2.40 3.0+(-)1.3 cm 2D Systolic Function EF 4C: 60.10 >55% EF 2C: 69.60 >55% EF BiP: 66.10 >55% Mitral Valve MV VTI: 0.44 MV Pk Nura: 1.68 MV Mn Nura: 0.88 MV Pk Grad: 11.00 MV Mn Grad: 4.00 MV Pk E: 1.73 MV PK A: 0.36 MV Decel Time: 300.00 E/A: 4.90 E'Lateral: 8.92 E'Medial: 4.79 E/E' Med: 36.10 E/E' Lat: 19.40 PHT: 88.00 MVA PHT: 2.50 MVA Continuity: 1.83 Decel Cheyenne: 5.78 MR VTI: 1.58 Aortic Valve AoV Pk Nura: 1.64 AoV Mn Nura: 1.06 AoV VTI: 0.30 AoV Pk Grad: 11.00 Aov Mn Grad: 6.00 DELIA Cont.VTI: 2.63 LVOT LVOT Pk Nura: 0.93 LVOT Mn Nura: 0.65 LVOT VTI: 0.18 LVOT Pk Grad: 3.00 LVOT Mn Grad: 2.00 LVOT Diam: 2.40 LVOT Area: 4.52 Diastolic Function MV Pk E: 1.73 MV Pk A: 0.36 E/A: 4.90 E'Medial: 4.79 E/E' Med: 36.10 E' Laterial: 8.92 E/E' Lat: 19.40 Right Ventricle TAPSE (mm): 19.99 TVS' Nrua: 11.00 Tricuspid Valve TR Pk Nura: 2.86 TR Pk Grad: 33.00 RA Press: 3.00 RVSP: 36.00 Great Vessels Aorta Sinus of Valsalva: 3.60 2.0-3.5 cm Ao Asc: 4.10 2.1-3.4 cm Ao Arch: 3.60 Pulmonary Valve PV Pk Nura: 0.88 Peak PV Grad: 3.00 Updated in Other Vendor System with Status of Final Jaylen Amin MD electronically signed on 04/26/2025 3:13:31 PM with status of Final
--- OUTSIDE RECORDS SUMMARY | 2025-04-24 15:45 | XMS_ITS | Clinical Summary ---
Author Organization [facility] [place] [address] Phone Care Team Providers Care Student Financial Aid Manager Name Role Phone Physician, No Pcp [...] History Medical History Date Comments Atrial fibrillation ([facility] V24, [facility] V28) CHF (congestive heart failure) ([facility] V24, [facility] V28) CVA (cerebral vascular accident) ([facility] V24, [facility] V28) Social History Tobacco [...] complete this topic Insurance MEDICARE [facility]) Care Teams Student Financial Aid Manager Relationship Specialty Start Date End Date Physician, No Pcp PCP - General 10/12/21
--- OUTSIDE RECORDS SUMMARY | 2025-04-24 15:45 | XMS_ITS | Encounter Summary ---
Author Organization [facility] Address [address] [facility] [address] [place] [address] Phone Care Team Providers Care Linseed Cake Trimmer Name Role Phone Gerda Feldman MD Primary Care Provider [phone] Reason for Referral * Consultation (Within 1 month) - Closed Specialty Diagnoses / Procedures Referred By Tyler childress Referred To Contact [facility] [address], [address], [address] [place] [address] Phone: tel: fax: [facility] [id number] Referral ID Status Reason Start Date Expiration Date Visits Re quested Visits Authorized [id number] Closed 02/01/2020 01/31/2021 1 1 Encounter Details Date Type Department Care Team (Late st Contact Info) Description 02/01/2020 Transcribe Orders [facility] [address], [address] [place] [address] Unknown, Unknown, Social History Tobacco Use Types [...] Associated Diagnoses Order Schedule Ambulatory referral to [facility] Outpatient Referral Routine Ordered: 02/01/2020 documented as of this encounter Visit Diagnoses Not on filedocumented in this encounter Care Teams Linseed Cake Trimmer Relationship Specialty Start Date End Date Gerda Feldman MD [address] [place] [address] [address] [place] [address] PCP - General Internal Medicine 01/31/20 documented as of this encounter Additional Source Comments The information contained in this document represents components of the legal health record. It is not the complete legal health record.[facility]
--- OUTSIDE RECORDS SUMMARY | 2025-04-24 15:45 | XMS_ITS | Encounter Summary ---
Author Organization [facility] Address [address] [place] [address] Care Team Providers Care Chronic Disease Epidemiologist Name Role Phone Gerda Feldman MD Primary Care Provider Jaylen Amin MD Unavailable Robert Crockett MD Unavailable [phone] Osmel Huerta MD Unavailable [phone] Wil Deras MD Unavailable Encounter Details Date Type Department Care Team (Late st Contact Info) Description 05/22/2020 Scanned Document [address] [place] [address] Provider, Janett, [address] [place] [address] Social History Tobacco Use Types Packs/Day Years [...] on filedocumented in this encounter Care Teams Chronic Disease Epidemiologist Relationship Specialty Start Date End Date Gerda Feldman MD [address] [place] [address] [address] PCP - General Internal Medicine 02/05/20 Jaylen Amin MD [address] [address] Broker Cardiovascular Disease 02/05/20 Robert Crockett MD [address] [address] Physician Cardiac Electrophysiology 03/01/2004/29 Osmel Huerta MD [address] [place] [address] Dr Youssef [address] [place] [address] Surgery, General 09/04/20 Wil Deras MD [address] [place] [address] Cardiovascular Disease 04/30/21 documented as of this encounter
--- OUTSIDE RECORDS SUMMARY | 2025-04-24 15:45 | XMS_ITS | Encounter Summary ---
Author Organization [facility] Address [address] [place] [address] Care Team Providers Care Green Building Architect Name Role Phone Gerda Feldman MD Primary Care Provider Jaylen Amin MD Unavailable Robert Crockett MD Unavailable [phone] Osmel Huerta MD Unavailable [phone] Wil Deras MD Unavailable Encounter Details Date Type Department Care Team (Late st Contact Info) Description 02/15/2020 Abstract [facility]- [address] [place] [phone] [address] Social History Tobacco Use Types Packs/Day Years [...] documented as of this encounter Care Teams Green Building Architect Relationship Specialty Start Date End Date Gerda Feldman MD [address] [place] [address] Dr Youssef [address] [place] [address] PCP - General Internal Medicine 02/05/20 Jaylen Amin MD [address] [address] Supervisor Uranium Processing Cardiovascular Disease 02/05/20 Robert Crockett MD [address] [address] Physician Cardiac Electrophysiology 03/01/2004/29 Osmel Huerta MD [address] [place] [address] Dr Youssef [address] [place] [address] Surgery, General 09/04/20 Wil Deras MD [address] [place] [address] Cardiovascular Disease 04/30/21 documented as of this encounter
--- OUTSIDE RECORDS SUMMARY | 2025-04-24 15:45 | XMS_ITS | Data Portability ---
Author Organization [facility] [employer], [address] Address [address] [place] [address] Assessment No assessment recorded. Plan of Treatment Reminders Order Date Submit Date Provider Last Modified By Organization Details Last Modified Time Details Appointments None recorded. Lab None recorded. Referral otolaryngol ogist referral - feeling dizzy and vertigo especially waking upm in morning. need further evaluation and treatment. 2022 023 [email or web address] 26 Pratik Rivera MD, [address] [facility], [place], [address], 3 12:51:32 Procedures None recorded. Surgeries None recorded. Imaging None recorded. Medication Orders meclizine 25 mg tablet 2022 023 [id number], [address] [place], [place], [id number], 3 19:15:43 Patient TargetsNo targets recorded. Patient Instructions Encounter Date Encounter Id Patient Instructions Last Modified By Organization Details Last Modified Time 06/06/2022 [id number] dizziness: care instructions Not available 06/06/2022 19:14:50 [...] Not available 06/06/2022 19:14:49 Reason for Referral Spray Gun Sizer Referral fo r Benign paroxysmal positional vertigo [...] Address Organization Details Recorded Time Essential hypertension 02429573 Active 2022 IRIS COUVERTIE R null, [place] - [facility] 3 18:23:37 Acute kidney injury 28504282 Active 2022 IRIS COUVERTIE R null, [place] - [facility] 3 18:26:17 Insomnia 572620609 Active 2022 IRIS COUVERTIE R null, [place] [...] Name and Address Organization Details Recorded Time 101161 Substance with sulfonami de structure and antibacte rial mechanism of action (substanc e) medicatio n Not available Not available Not available 06/06/2022 67379 8003 SNOMED IRIS COUVERTIE R null, [place] - [facility] 3 18:21:58 587374 gabapenti n medicatio n dizziness Not available Not available 06/06/2022 39247 RxNorm IRIS COUVERTIE R null, [place] - [facility] 3 18:22:14 794736 rosuvasta tin medicatio n edema Not available Not available 06/06/2022 60076 2 RxNorm KRISHNA Muñoz bennett, [place] - [...] BY MOUTH EVERY DAY DIRECTED BY [facility] 06/06 completed Not Available Not [...] Updated DateTime 3 187.96 cm 23.8 kg/m2 98806.5 9 g 100 % 66 /min 18 [...] ICD10 Code Diagnosis IMO Codes Diagnosis Note [id number] [address] [place] [address] 08/09/2016 14:01:54 08/09/2016 14:52:09 [id number] [address] [place] [address] 10/08/2019 14:19:37 10/08/2019 15:46:07 [id number] [address] [place] [address] 06/14/2020 09:23:40 06/14/2020 09:53:11 [id number] [address] [place] [address] 12/31/2018 10:08:17 12/31/2018 10:53:03 [id number] [address] [place] [address] 06/08/2016 13:08:05 06/08/2016 14:31:43 [id number] [address] [place] [address] 01/02/2020 17:09:44 01/02/2020 17:43:56 [id number] [address] [place] [address] 12/18/2019 15:16:32 12/18/2019 16:26:12 [id number] [address] [place] [address] 02/19/2016 13:00:02 02/19/2016 13:30:00 [id number] [address] [place] [address] 02/13/2016 15:03:43 02/13/2016 15:28:04 [id number] [address] [place] [address] 12/08/2017 08:46:06 12/08/2017 09:50:44 [id number] [address] [place] [address] 03/16/2020 15:48:34 03/16/2020 18:27:17 [id number] [address] [place] [address] 04/30/2020 13:25:07 04/30/2020 18:52:16 [id number] [facility] JA[facility]ES [address] [place] [address] 06/06/2022 15:33:14 07/27/2022 19:27:19 Left without being seen [id number] 9102 Z53.21 [id number] Leroy Crandall [place] [address] [place] [address] 06/06/2022 17:13:56 06/06/2022 19:17:57 Benign paroxysmal positional vertigo [id number] H81.10 Health Concerns Section Related Observation LastModified by Organization Detai ls LastModified Time None Recorded Concern Status LastModified by Organization Details LastModified Time None Recorded Advance Directives Directive None Recorded Payers Insurance Date Sequence Insurance Name Policy Number Policy Shelby Covered Member ID Shelby Member ID Guarantor Name 06/06/2022 1 [place] [employer] Eliazar Quispe [id number] Eliazar Quispe 06/06/2022 2 [place] [id number] Eliazar Quispe [id number] Eliazar Quispe Notes Date Note Type [...] Crandall NP [address] [place], [address], [place] - [facility] 06/06/2022 19:16:09
--- OUTSIDE RECORDS SUMMARY | 2025-04-24 15:45 | XMS_ITS | Encounter Summary ---
Author Organization [facility] Address [address] [place] [address] Care Team Providers Care Chemist Biological Name Role Phone Gerda Feldman MD Primary Care Provider Jaylen Amin MD Unavailable [phone] Osmel Huerta MD Unavailable [phone] Wil Deras MD Unavailable Encounter Details Date Type Department Care Team (Late st Contact Info) Description 07/21/2021 Scanned Document [address] [address] Provider, MD Janett [address] [place] [address] Social History Tobacco Use Types Packs/Day Years [...] on filedocumented in this encounter Care Teams Chemist Biological Relationship Specialty Start Date End Date Gerda Feldman MD [address] [place] [address] Dr Youssef [address] [place] [address] PCP - General Internal Medicine 02/05/20 Jaylen Amin MD [address] [place] [address] [address] [address] City Planning Aide Cardiovascular Disease 02/05/20 Osmel Huerta MD [address] [place] [address] Dr Youssef [address] [place] [address] Surgery, General 09/04/20 Wil Deras MD [address] [place] [address] Cardiovascular Disease 04/30/21 documented as of this encounter
--- OUTSIDE RECORDS SUMMARY | 2025-04-24 15:45 | XMS_ITS | Clinical Summary ---
Author Organization [facility] Address [address] [place] [address] Care Team Providers Care Professor Of Physics Name Role Phone Gerda Feldman MD Primary Care Provider Jaylen Amin MD Unavailable [phone] Osmel Huerta MD Unavailable [phone] Wil Deras MD Unavailable Allergies Active [...] Take 400 mcg by mouth daily. Active [place]-3 Fatty Acids (FISH OIL PO) Take by mouth daily. Active Active Problems Problem Noted Date Diagnosed Date Atrial flutter 02/03/2021 Overview (02/03/2021): Added automatically from request for surgery [id number] Persistent atrial fibrillation 05/07/2020 Tendon rupture, nontraumatic [...] & B MEDICARE PART A & [place] [address] Advance Directives * Full Code (Latest Code Status on File) Date Activated Date Inactivated Comments 03/16/2021 3:20 PM * Full Code Date Activated Date Inactivated Comments 05/07/2020 7:40 PM 03/16/2021 6:29 AM Care Teams Professor Of Physics Relationship Specialty Start Date End Date Gerda Feldmna MD [address] [place] [address] [place] [address] PCP - General Internal Medicine 02/05/20 Jaylen Amin MD [address] [place] [address] Sales Service Route Manager Cardiovascular Disease 02/05/20 Osmel Huerta MD [address] [place] [address] [address] [place] [place] [address] Surgery, General 09/04/20 Wil Deras MD [address] [place] [address] Cardiovascular Disease 04/30/21
--- OUTSIDE RECORDS SUMMARY | 2025-04-24 15:45 | XMS_ITS | Clinical Summary ---
Author Organization [facility] Address [address] [place] [address] Phone Care Team Providers Care Social Sciences Instructor Name Role Phone Gerda Feldman MD Primary Care Provider [phone] Social History Tobacco Use Types Packs/Day Years [...] file Insurance MEDICARE PART A & B [employer]UE [employer] MEDEX SUPPLEMENT MEDICARE PART A & B [place] MED[place] SUPPLEMENT MEDICARE PART A & B [employer] CROSS MEDEX SUPPLEMENT MEDICARE PART A & B [employer]. MEDEX SUPPLEMENT MEDICARE PART A & B [employer] CROSS MEDEX SUPPLEMENT MEDICARE PART A & B [employer]. MEDEX SUPPLEMENT MEDICARE PART A & B [employer]. MEDEX SUPPLEMENT MEDICARE PART A & B [employer]. MEDEX SUPPLEMENT MEDICARE PART A & B Nu[employer] CROSS MEDEX SUPPLEMENT Care Teams Social Sciences Instructor Relationship Specialty Start Date End Date Gerda Feldman MD [address] [place] [address] PCP - General Internal Medicine 01/31/20 Additional Source Comments The information contained in this document represents components of the legal health record. It is not the complete legal health record.[facility]
--- OUTSIDE RECORDS SUMMARY | 2025-04-24 15:45 | XMS_ITS | Patient Health Record ---
Author Organization [facility] Address [address] [facility] [address] [place] [address] Care Team Providers Care Pound Attendant Name Role Phone Chase Ahn M.D Primary [...] W/U Status Risk Notes Problem Anxiety disorder (527823052) Anxiety disorder, unspecified (F41.9) Active confirmed 10/14/21: Patient has undergone some life stressors due to his mother passing and his daughter going through rehab. Patient is accepting of the fact that he may be experiencing these symptoms because of his anxiety. Problem Paroxysmal atrial fibrillation (999730532) Paroxysmal atrial fibrillation (I48.0) Active confirmed 10/14/21: Patient has been taking amiodarone for his Afib and will undergo cardioversion as recommeneded by his vegetable worker Problem Chronic systolic heart failure (742035339) Chronic systolic (congestive) heart failure (I50.22) Active confirmed 10/14/21: Stable not on any current medication Plan Of Treatment No Information Insurance Providers Payer Name Payer Address Payer Phone Subscriber Number Group Number Insured Name Patient Relationship to Insured Coverage Start Date Coverage End Date MEDICARE Part B- [facility] [address] [place] [phone] [id number] Eliazar Eldridge Self - patient is the insured [facility] [address] [address] [place] [address] [phone] [id number] Eliazar Eldridge Self - patient is the insured Medical (General) History Medical History History ICD Code Atrial Fibrillation Congestive Heart Failure Surgical History Surgery Date(Month/Year) Hernia repair 2020 Ablation for AFib 2021 Hospitalization History Reason Date(Month/Year) Rule out stroke 10/14
--- OUTSIDE RECORDS SUMMARY | 2025-04-24 15:45 | XMS_ITS | Encounter Summary ---
Author Organization [facility] Address [address] [place] [address] Care Team Providers Care Research Archaeologist Name Role Phone Gerda Feldman MD Primary Care Provider aJylen Amin MD Unavailable Robert Crockett MD Unavailable [phone] Osmel Huerta MD Unavailable [phone] Wil Deras MD Unavailable Encounter Details Date Type Department Care Team (Late st Contact Info) Description 09/05/2020 Scanned Document [address] [place] [address] Provider, Janett, [address] [place] [address] Social History Tobacco Use Types Packs/Day Years [...] on filedocumented in this encounter Care Teams Research Archaeologist Relationship Specialty Start Date End Date Gerda Feldman MD [address] [place] [address] Dr Youssef [address] [place] [address] PCP - General Internal Medicine 02/05/20 Jaylen Amin MD [address] [address] Art Librarian Cardiovascular Disease 02/05/20 Robert Crockett MD [address] [address] Physician Cardiac Electrophysiology 03/01/2004/29 Osmel Huerta MD [address] [place] [address] Dr Youssef [address] [place] [address] Surgery, General 09/04/20 Wil Deras MD [address] [place] [address] Cardiovascular Disease 04/30/21 documented as of this encounter
--- OUTSIDE RECORDS SUMMARY | 2025-04-24 15:45 | XMS_ITS | Encounter Summary ---
Author Organization [facility] Address [address] [place] [address] Care Team Providers Care Orthopedic Dentist Name Role Phone Gerda Feldman MD Primary Care Provider Jaylen Amin MD Unavailable Robert Crockett MD Unavailable [phone] Osmel Huerta MD Unavailable [phone] Wil Deras MD Unavailable Encounter Details Date Type Department Care Team (Late st Contact Info) Description 02/15/2020 Scanned Document [address] [place] [address] Provider, Janett, [address] [place] [address] Social History Tobacco Use Types Packs/Day Years [...] documented as of this encounter Care Teams Orthopedic Dentist Relationship Specialty Start Date End Date Gerda Feldman MD [address] [place] [address] Dr Youssef [address] [place] [address] PCP - General Internal Medicine 02/05/20 Jaylen Amin MD [address] [address] Rural Sociologist Cardiovascular Disease 02/05/20 Robert Crockett MD [address] [address] Physician Cardiac Electrophysiology 03/01/2004/29 Osmel Huerta MD [address] [place] [address] Dr Youssef [address] [place] [address] Surgery, General 09/04/20 Wil Deras MD [address] [place] [address] Cardiovascular Disease 04/30/21 documented as of this encounter
--- OUTSIDE RECORDS SUMMARY | 2025-04-24 15:45 | XMS_ITS | Encounter Summary ---
Author Organization [facility] Address [address] [place] [address] Care Team Providers Care Social Welfare Research Worker Name Role Phone Gerda Feldman MD Primary Care Provider [phone] Jaylen Amin MD Unavailable [phone] Robert Crockett MD Unavailable [phone] Osmel Huerta MD Unavailable [phone] Wil Deras MD Unavailable Encounter Details Date Type Department Care Team (Late st Contact Info) Description 05/06/2020 Prep for Surgery [facility] [place] - Electrophysiology [address] [place] [address] [place] [id number] Sophie Gtz, O[employer]ER AND GRE[employer]ER [address] [address] Social History Tobacco Use Types Packs/Day Years [...] Author Low Risk 05/07/2020 7:24 AM EST Do toni Clayton RN documented as of this encounter Mental Status * Question Answer Entry Date Author Cognitive/Neuro/Behavioral WDL WDL 05/09/2020 8:30 AM EST Nicky Knight RN documented in this encounter Plan of Treatment [...] documented as of this encounter Care Teams Social Welfare Research Worker Relationship Specialty Start Date End Date Gerda Feldman MD [address] [place] [address] Dr Youssef [address] [place] [address] PCP - General Internal Medicine 02/05/20 Jaylen Amin MD [address] [place] [address] Pharmacy Clinical Coordinator Cardiovascular Disease 02/05/20 Robert Crockett MD [address] [address] Physician Cardiac Electrophysiology 03/01/2004/29 Osmel Huerta MD [address] [place] [address] Dr Youssef [address] [place] [address] Surgery, General 09/04/20 Wil Deras MD [address] [place] [address] Cardiovascular Disease 04/30/21 documented as of this encounter
--- OUTSIDE RECORDS SUMMARY | 2025-04-24 15:45 | XMS_ITS | Encounter Summary ---
Author Organization [facility] Address [address] [place] [address] Care Team Providers Care Middle School Coach Name Role Phone Gerda Feldman MD Primary Care Provider Jaylen Amin MD Unavailable Robert Crockett MD Unavailable [phone] Osmel Huerta MD Unavailable [phone] Wil Deras MD Unavailable Encounter Details Date Type Department Care Team (Late st Contact Info) Description 02/21/2020 Scanned Document [address] [place] [address] Provider, Janett, [address] [place] [address] Social History Tobacco Use Types Packs/Day Years [...] documented as of this encounter Care Teams Middle School Coach Relationship Specialty Start Date End Date Gerda Feldman MD [address] [place] [address] Dr Youssef [address] [place] [address] PCP - General Internal Medicine 02/05/20 Jaylen Amin MD [address] [address] Vendor Representatives Cardiovascular Disease 02/05/20 Robert Crockett MD [address] [address] Physician Cardiac Electrophysiology 03/01/2004/29 Osmel Huerta MD [address] [place] [address] Dr Youssef [address] [place] [address] Surgery, General 09/04/20 Wil Deras MD [address] [place] [address] Cardiovascular Disease 04/30/21 documented as of this encounter
--- OUTSIDE RECORDS SUMMARY | 2025-04-24 15:45 | XMS_ITS | Encounter Summary ---
Author Organization [facility] Address [address] [place] [address] Care Team Providers Care Paving Plant Operator Name Role Phone Gerda Feldman MD Primary Care Provider Jaylen Amin MD Unavailable Robert Crockett MD Unavailable [phone] Osmel Huerta MD Unavailable Wil Deras MD Unavailable Encounter Details Date Type Department Care Team (Late st Contact Info) Description 02/15/2020 Scanned Document [address] [place] [address] Provider, Janett, [address] [place] [address] Social History Tobacco Use Types Packs/Day Years [...] documented as of this encounter Care Teams Paving Plant Operator Relationship Specialty Start Date End Date Gerda Feldman MD [address] [place] [address] Dr Youssef [address] [place] [address] PCP - General Internal Medicine 02/05/20 Jaylen Amin MD [address] [address] Vision Rehabilitation Therapist Cardiovascular Disease 02/05/20 Robert Crockett MD [address] [address] Physician Cardiac Electrophysiology 03/01/2004/29 Osmel Huerta MD [address] [place] [address] Dr Youssef [address] [place] [address] Surgery, General 09/04/20 Wil Deras MD [address] [place] [address] Cardiovascular Disease 04/30/21 documented as of this encounter
--- OUTSIDE RECORDS SUMMARY | 2025-04-24 15:45 | XMS_ITS | Encounter Summary ---
Author Organization [facility] Address [address] [place] [address] Care Team Providers Care Parking Inspector Name Role Phone Gerda Feldman MD Primary Care Provider Jaylen Amin MD Unavailable Robert Crockett MD Unavailable [phone] Osmel Huerta MD Unavailable [phone] Wil Deras MD Unavailable Encounter Details Date Type Department Care Team (Late st Contact Info) Description 02/18/2020 Scanned Document [address] [place] [address] Provider, Janett, [address] [place] [address] Social History Tobacco Use Types Packs/Day Years [...] documented as of this encounter Care Teams Parking Inspector Relationship Specialty Start Date End Date Gerda Feldman MD [address] [place] [address] Dr Youssef [address] [place] [address] PCP - General Internal Medicine 02/05/20 Jaylen Amin MD [address] [address] Motivational Speaker Cardiovascular Disease 02/05/20 Robert Crockett MD [address] [address] Physician Cardiac Electrophysiology 03/01/2004/29 Osmel Huerta MD [address] [place] [address] Dr Youssef [address] [place] [address] Surgery, General 09/04/20 Wil Deras MD [address] [place] [address] Cardiovascular Disease 04/30/21 documented as of this encounter
--- OUTSIDE RECORDS SUMMARY | 2025-04-24 15:45 | XMS_ITS | Clinical Summary ---
Author Organization [facility] Address [address] [facility] [address] [place] [address] Phone Care Team Providers Care After School Coordinator Name Role Phone Gerda Feldman MD Primary Care Provider [phone] Allergies Active Allergy Reactions Criticality Noted Date [...] (11/05/2021): Added automatically from request for surgery [id number] Non-traumatic tendon rupture 01/24/2020 11/05/2021 Overview (11/05/2021): [...] age to complete this topic Insurance Medicare [facility] Medicare [facility] Care Teams After School Coordinator Relationship Specialty Start Date End Date Gerda Feldman MD [facility] [place] [address] [facility] [address] [place], [place] PCP - General Internal Medicine 10/21/21
== END ==
LOC: HO.CARD 14:40
PROVIDERS: PCP Internal Medicine; Visit Provider Internal Medicine
DX: Z98.890 Other specified postprocedural states (principal)
CPT/HCPCS: 93306

== ENCOUNTER → 2025-04-24 14:45 | Outpatient (BNV) | payer MEDICARE, SELFPAY | PROVIDERS: PCP Internal Medicine; Visit Provider Internal Medicine | DX: I77.810 Thoracic aortic ectasia (principal); I34.0 Nonrheumatic mitral (valve) insufficiency; Z98.890 Other specified postprocedural states | CPT/HCPCS: 93306 ==